=== PATIENT | male | born 1940 | race Caucasian/White ===

== ENCOUNTER → 2018-08-06 10:44 | Outpatient (CLI) | payer MEDICARE, SELFPAY ==
--- NOTE | 2018-08-06 10:45 | RAD_ITS ---
STUDY: X-RAY - ABDOMEN/PELVIS REASON FOR EXAM: Male, 78 years old. Right flank pain TECHNIQUE: Frontal view of the abdomen COMPARISON: 12/29/2015 FINDINGS: There is no bowel obstruction. There is air and stool to the level of the rectum. -There is a 5 mm calcification overlying the right renal shadow which may represent a renal stone. This is grossly unchanged when compared with the prior exam. There are surgical clips in the pelvis which are likely from prior prostatectomy. There are mild degenerative changes in the spine. RAD/Abdomen Single View IMPRESSION: No bowel obstruction. 5 mm calcification overlying the right renal shadow which may represent a renal stone. Electronically Signed: Denton Guo, at 17:08 EDT Tel , Service support ,
== END ==
PROVIDERS: Family Provider Family Medicine; PCP Family Medicine; Visit Provider Nurse Practitioner Adult Health
DX: N20.0 Calculus of kidney (principal)
CPT/HCPCS: 74018

== ENCOUNTER 2020-12-10 12:27 | Outpatient (RCR) | payer MEDICARE, SELFPAY ==
[2018-12-21 11:19] VITALS: BMI 30.4
== END 2020-12-10 23:59 ==
LOC: IMMUN 12:27
PROVIDERS: PCP Family Medicine; Visit Provider Family Medicine
DX: Z23 Encounter for immunization (principal)
CPT/HCPCS: 0011A; 0012A; 91301

== ENCOUNTER → 2021-09-13 06:44 | Outpatient (CLI) | payer MEDICARE, SELFPAY ==
--- NOTE | 2021-09-13 17:54 | STRESSREP ---
Stress Test Report Exercise myocardial perfusion stress test. 81-year-old man with a history of chest pain. Stress protocol: Resting EKG demonstrates normal sinus rhythm with a rate of 82 bpm and incomplete left bundle branch block noted. Resting blood pressure is 128/84 mmHg. The patient exercised according to the regular Yandel protocol for a total duration of 5 minutes. Patient completed 2 minutes into stage II of the Yandel protocol. The maximum heart rate attained was 114 bpm which was 82% of maximum predicted heart rate the maximum workload was 7 metabolic equivalents. At rest there were no ST or T wave changes noted to suggest ischemia nonspecific ST changes were noted though the patient experienced slight pressure in the lower part of the chest. The test was terminated due to dyspnea. Myocardial perfusion protocol. 11.7 mCi of technetium 99m sestamibi was injected at rest. Patient exercised according to regular Yandel protocol for 5 minutes and at peak exercise 33.3 mCi of technetium 99m sestamibi was injected stress images were obtained stress and rest images were reconstructed and compared in the short axis vertical long and horizontal long axis. Gated images were also obtained. Perfusion SPECT analysis: Review of the stress images demonstrate normal uptake of tracer noted in all areas of the myocardium. The resting images similarly demonstrate normal uptake of tracer noted in all areas of the myocardium. No areas of reversibility are noted to suggest ischemia and no previous infarct is noted. Gated SPECT analysis: The gated ejection fraction is 34%. 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 No evidence of ischemia noted at a moderate workload.
== END ==
PROVIDERS: PCP Internal Medicine; Referring Provider Internal Medicine; Visit Provider Internal Medicine
DX: I42.9 Cardiomyopathy, unspecified (principal); R07.89 Other chest pain
CPT/HCPCS: 78452; 93017; A9500; A4216

== ENCOUNTER 2021-10-04 09:00 | Outpatient (RCR) | payer MEDICARE, SELFPAY ==
--- NOTE | 2021-09-03 08:41 | HP.PTEVAL ---
Patient's Visit Information BERNY INFANTE is a 81 year old M referred to Physical Therapy by Dr. Joelle Stern MD with a diagnosis of Leg weakness, unsteady gait. Date of Evaluation: 09/03/21 Physical Therapist: Ryley Mccoy, DPT, OCS, CSCS - Visit Plan Frequency: 2-3x /Week Duration: 4-6 Weeks Plan: Neurocom balance test then. 2-3x/week for 4 weeks for. 1. HS, gastroc, quad stretching to HEP, LB ROM flexion to HEP. 2. shoulder elevation ROM to HEP. 3. Strength in gym of posture, core, LE including get up off floor as exercise and progress to I. 4. balance ex as appropriate based on balanbce test(vestibular) - Subjective Goes by skip. I need to gain a strength. Has LB problems from time to time. Legs feel weak as he has gotten older and skinnier. 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 LBP not a current problem. Takes celebrex daily which helps. Walking long distances acan make it hurt but gone with sitting. Sleep is fine. 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 Balance could be better. Notices it has been off at times for no apparent reason. standing with feet together is hard. Needs to be careful stadning out of chair at home. No falls,. No AD needed. Uses wading staff in water and boots with metal studs. No regular exercises. Used to walk dog a lot but that dog . Spends day sleeping, working in yard. Has service mow the lawn. 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 \Basic Lives with , lives on single story with basement, steps feel weak when carrying kits down steps. Needs to carry 40# of water at t noelle. Basic ADLS are good. bending to put shoes on can be an issue just hard to do. Putting waders on takes effort., Feels weak. - Objective Walks into PT confidently and normal and safe. Trasnfers bed and chair I without UE. Steps are reciprocal but show some weakness with eccentric lowering. max tight in HS, quads, hip flecxors and gastroc/soleus. LB AROM ex mod limited, flexion mod limited, rotation mod limited. UE AROM WFL but limited in elevation shoulders to 130. reflexes 2./3 patella and achilles. Sensationn LE WNL to gross light touch. Strength LE 4/5 ankles and knees and 4- hip abd and ext and flexion B. 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 - Balance/Special Test Scores Functional Gait Assessment Score: 28 % Disability: 6.6700 CATSIB Score (Max score 120 seconds): 60 Lower Extremity Functional Score: 54 - Goals Goal 1:: I approp gym ex for LE and postural strength, balance if needed, HS, quad and gastroc stretch and shoulder ROM Goal Time Frame: 4-6 Weeks Goal 2:: Get up off floor with ease and confidence Goal Time Frame: 4-6 Weeks Goal 3:: Pt feel 75% better in balance and confidence with strength Goal Time Frame: 4-6 Weeks Goal 4:: Neurocom balance test and give results. Goal Time Frame: 4-6 Weeks - Rehabilitation Potential Physical Therapy Diagnosis: Weakness threatening function Rehabilitation Potential: Fair - Anticipated Interventions Patient/Client Instruction: Educate patient on: Condition, Plan of Care For the Purpose of:: To increase ROM, To improve muscle performance and motor function, To increase tolerance to activity/condition/position, To improve gait and locomotor functions Therapeutic Exercise to Include: Strength training, Flexibilty training, Passive ROM, Active ROM For the Purpose of:: To increase ROM, To improve muscle performance and motor function, To increase tolerance to activity/condition/position, To improve ability of physical actions for home/community/work/leisure, To improve gait and locomotor functions Thank you for the opportunity to evaluate your patient. For Medicare and Medicare HMO plans, please review the plan of care and approve it. It will need to be FAXED BACK to us at [phone] for Medicare purposes. For Medicare only, by signing this I certify the plan of care. Please let me know if there are questions or concerns regarding this plan of care. Physician Signature: Date:
--- NOTE | 2021-10-04 09:51 | HP.PTDCSUM ---
It has been my pleasure to treat BERNY INFANTE referred by Dr. Joelle Stern MD, with the diagnosis of Leg weakness, unsteady gait for a total of 9 visit(s). Discharge Date: 10/04/21 Please see the following information for a summary of their discharge status. Subjective: Doing pretty good. I like the exercises. wants to keep doing it. Feels like he can do this on his own. Feels stronger standing up, got up off floor himself the other day. 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 it will wear me out. % Improvement: 33 Objective/Function: Doing well with balance. and I with exercises and goals progressing nicely. Feels like he can continue in the gym on his own and will do so. Goal 1:: I approp gym ex for LE and postural strength, balance if needed, HS, quad and gastroc stretch and shoulder ROM Goal Progress: Goal Met Goal 2:: Get up off floor with ease and confidence Goal Progress: Goal Met Goal 3:: Pt feel 75% better in balance and confidence with strength Goal Progress: 33% Goal 4:: Neurocom balance test and give results. Goal Progress: Goal Met Plan: d/c If there are questions or concerns regarding this patient's physical therapy, please feel free to call me at [phone]. Thank you for the referral of this patient. Sincerely, Ryley Mccoy, DPT, OCS, CSCS Balance/Gait/Functional tests - Balance/Special Test Scores Functional Gait Assessment Score: 29 % Disability: 3.3400 CATSIB Score (Max score 120 seconds): 60 Lower Extremity Functional Score: 55
== END 2021-10-04 19:00 | disposition home or self-care (01) ==
LOC: PT 09:00
PROVIDERS: PCP Internal Medicine; Referring Provider Internal Medicine; Visit Provider Internal Medicine
DX: R26.81 Unsteadiness on feet (principal); M51.36 Other intervertebral disc degeneration, lumbar region; R29.898 Other symptoms and signs involving the musculoskeletal system
CPT/HCPCS: 97110; 97162; 97164; 97750

== ENCOUNTER 2021-10-11 21:17 | Emergency (ER) | payer MEDICARE, SELFPAY ==
[2021-10-11 21:17] VITALS: BP 108/88; PULSE 92; RESP 20; TEMP 36.7; O2SAT 100; BMI 26.4
[2021-10-11 21:22] VITALS: RESP 17
--- NOTE | 2021-10-11 21:45 | ED.VIS.BACK ---
HPI History of Present Illness Chief Complaint: Back Informant: patient Onset/Context/Timing Onset: Today Chronic pain exacerbated by: Activity Timing: Continuous Quality: Aching Location: Lumbar Worsened by: improves with Ambulation Relieved by: Sitting Associated Symptoms Associated Symptoms: Radiation to Left Leg; Negative for Numbness, Tingling, Radiation to Right Leg, Fever, Abdominal Pain, Dysuria, Unable to Ambulate, Unable to Transfer, Urinary Retention, Urinary Incontinence, Constipation and Fecal Incontinence Narrative Narrative: Patient with left lower lumbar pain that became worse today. Patient states that he has had similar pains in the past but this is worse. Patient states he had recent x-rays done. Patient states he has been to physical therapy. Patient states he was doing some of his physical therapy exercises today. Patient states his pain became worse after that. Patient states his pain is constant. Patient states the pain radiates to his left thigh. Patient denies any bowel or bladder changes. Patient denies any saddle anesthesia. Patient states his pain is different than the pain he gets with his kidney stones. Patient states he contacted his primary care physician who referred to the emergency department for management of his pain. [facility] Medical History (Updated 10/11/21 @ 23:[address] Ryley Morales, DO) History of hay fever Prostate cancer Home Medications celecoxib 200 mg PO DAILY PRN 07/31/17 [History Last Taken Unknown] duloxetine 20 mg PO BID 07/31/17 [History Last Taken Unknown] folic acid 1 mg PO BID 10/11/21 [History Last Taken Unknown] oxycodone-acetaminophen 1 tab PO Q6H PRN PRN 3 Days #12 tablet 10/11/21 [Rx Last Taken Unknown] potassium citrate 10 meq PO BID 10/11/21 [History Last Taken Unknown] rosuvastatin 20 mg PO DAILY 10/11/21 [History Last Taken Unknown] vitamin B complex [B Complex] 1 cap PO BID 10/11/21 [History Last Taken Unknown] zolpidem [Ambien] 10 mg PO QHS 10/11/21 [History Last Taken Unknown] Allergy/AdvReac Type Severity Reaction Status Date / Time iodine Allergy Shortness Verified 10/11/21 21:25 of breath Surgical History (Updated 10/11/21 @ 21:[address] Ryley Morales, DO) History of prostate surgery History of total bilateral knee replacement Hx of appendectomy Social History Smoking Status: Never smoker alcohol intake: current details: social substance use type: does not use ROS ROS ED Constitutional Constitutional ED: Denies chills or fever(s) Eyes Eyes: Denies blurry vision or change in vision ENT ENT ED: Denies rhinorrhea or sore throat Cardiovascular Cardiovascular: Denies chest pain or palpitations Respiratory/Chest Respiratory/Chest: Denies cough or dyspnea Gastrointestinal Gastrointestinal: Denies nausea or vomiting Genitourinary Genitourinary ED: Denies dysuria or hematuria Musculoskeletal Musculoskeletal: Reports back pain; Denies neck pain Integumentary Denies abscess or rash Neurologic Neurologic: Denies headache(s) or weakness Allergic/Immunologic Allergic/Immunologic ED: Denies mouth swelling or urticaria EXAM Physical Exam Const Vital Signs: 10/11/21 21:17 10/11/21 21:22 Temperature 98.1 F Temperature Source Temporal Pulse Rate 92 Respiratory Rate 20 H 17 Blood Pressure 108/88 H Blood Pressure Mean 94 Pulse Ox 100 Oxygen Delivery Method Room Air Room Air Positive well nourished and well developed General Appearance ED: well developed HEENT Reports moist mucous membranes GI normal to inspection, nondistended, normoactive bowel sounds and soft to palpation Back/Spine Back/Spine Narrative: There is some mild tenderness over the left lumbar paraspinal muscles. There is no midline tenderness. There is no bony crepitance or step-off. Range of motion was limited in all motions of the lumbar spine secondary to pain. Strength is 5/5 bilaterally in the lower extremities. Deep tendon reflexes were 2/4 bilaterally in the lower extremities. Sensation was intact to light touch bilaterally in the lower extremities. Straight leg raises were negative bilaterally. General Back: Negative for CVA tenderness Neuro oriented x3 Sensorium / Orientation: alert Motor Exam: strength 5/5 throughout Deep Tendon Reflexes: Rt Patellar (L4): 2+, Lt Patellar (L4): 2+, Rt Ankle (S1): 2+ and Lt Ankle (S1): 2+ Deep Tendon Reflexes Back: Rt Patellar (L4): 2+, Lt Patellar (L4): 2+, Rt Ankle (S1): 2+ and Lt Ankle (S1): 2+ Psych mental status grossly normal MDM MDM MDM Narrative Medical decision making narrative: Since the patient has had x-rays done recently and he has had no recent trauma, I do not feel it is necessary to repeat them at this time. Patient was given injection of morphine here. Patient had minimal relief with this. Patient was given a repeat dose of morphine. Patient states he still has minimal improvement of his pain. Patient was given a dose of Dilaudid. Patient feels better after this. Patient states he feels he is able to get around at home. Patient was given a prescription for Percocet. Patient was instructed to follow-up with his primary care physician in 3 to 5 days. Patient was instructed on signs and symptoms which should prompt return to the emergency department. Patient understood and was agreeable with the plan. All questions were answered. Discharge Plan Triage Chief Complaint: Back ED Provider: Ryley Morales Dx/Rx/DC Orders Clinical Impression: Acute low back pain Instructions: ED Back Pain (Acute or Chronic) Prescriptions: New oxycodone-acetaminophen [oxycodone-acetaminophen] 1 TABLET tablet 1 tab PO Q6H PRN PRN (Reason: Pain) 3 Days Qty: 12 RF: 0 No Action celecoxib 200 MG capsule 200 mg PO DAILY PRN (Reason: Pain) RF: 0 duloxetine 20 MG capsule 20 mg PO BID RF: 0 potassium citrate 10 mEq (1,080 mg) Tablet Extended Release 10 meq PO BID RF: 0 zolpidem [Ambien] 10 mg Tablet 10 mg PO QHS RF: 0 rosuvastatin 20 mg Capsule, Sprinkle 20 mg PO DAILY RF: 0 folic acid 1 mg Tablet 1 mg PO BID RF: 0 vitamin B complex [B Complex] Capsule 1 cap PO BID RF: 0 Primary Care Provider: Joelle Stern Referrals: Joelle Stern MD [Primary Care Provider] - 3-5 Days Disposition Disposition: Home, Self Care
[2021-10-11] MEDS: Morphine 4 MG/ML Syringe IM ×2 (21:53→23:18)
[2021-10-11] MEDS: HYDROmorphone 0.5 MG/0.5 ML SYRINGE IM (23:46)
[2021-10-12 00:01] VITALS: BP 112/74; PULSE 74; RESP 17; O2SAT 97
== END 2021-10-12 00:05 | disposition home or self-care (01) ==
PROVIDERS: Emergency Provider Emergency Medicine; PCP Internal Medicine
DX: M54.50 Low back pain, unspecified (principal)
CPT/HCPCS: 96372; 99282

== ENCOUNTER 2021-12-13 09:35 | Outpatient (CLI) | payer MEDICARE, SELFPAY ==
--- NOTE | 2021-12-13 09:43 | ECHOD_ITS ---
Reason For Study: lower left ventricular ejection fraction Procedure This was a 2D Doppler, Color Flow transthoracic echocardiogram. Exam performed in department. Left Ventricle Normal LV size. Moderate concentric left ventricular hypertrophy. The estimated ejection fraction is 35 %. Stage 3 diastolic dysfunction. There is moderate to severe global hypokinesis of the left ventricle. Right Ventricle Normal RV size. Normal systolic function. Mitral Valve Bileaflet diffuse mitral valve thickening. Mild (1+) eccentric mitral valve insufficiency. Tricuspid Valve Normal tricuspid valve. Mild to moderate (1-2+) tricuspid valve insufficiency. Pulmonary artery systolic pressure is 34 mmHg. Aortic Valve Trisinus/trileaflet aortic valve. Mild focal aortic valve calcification. Trivial aortic valve insufficiency. Pericardium/Pleural Small pericardial effusion. MMode/2D Measurements & Calculations LVIDd: 5.1 cm IVSd: 1.2 cm Ao root diam: 3.7 cm LVIDs: 4.0 cm LVPWd: 1.3 cm RVDd: 3.6 cm FS: 22.8 % LAV(MOD-bp): 75.1 ml LA dimension(2D): 4.8 cm LA A4 area: 22.6 cm2 LAV(MOD-bp) Indexed: 36.3 ml/m2 LAV(MOD-sp2): 72.6 ml LAV(MOD-sp4): 72.2 ml RA A4 area: 16.2 cm2 Doppler Measurements & Calculations MV E max dariel: 96.2 cm/sec Ao V2 max: 82.9 cm/sec LV V1 max: 68.0 cm/sec MV A max dariel: 47.9 cm/sec Ao max P.8 mmHg LV V1 max P.8 mmHg MV E/A: 2.0 MR max dariel: 388.4 cm/sec PA V2 max: 87.6 cm/sec TR max dariel: 272.6 cm/sec MR max P.4 mmHg TR max P.7 mmHg ECHO/Echo Complete Interpretation Summary Normal LV size. Moderate concentric left ventricular hypertrophy. The estimated ejection fraction is 35 %. There is moderate to severe global hypokinesis of the left ventricle. Small pericardial effusion. Mild (1+) eccentric mitral valve insufficiency. Stage 3 diastolic dysfunction. Pulmonary artery systolic pressure is 34 mmHg. Ordering Physician: Joelle Stern Referring Physician: Moise Araiza M.D. Performed By: Shelley Powell, OWEN, RVT
== END 2021-12-13 23:59 | disposition short-term general hospital (02) ==
PROVIDERS: PCP Internal Medicine; Referring Provider Internal Medicine; Visit Provider Internal Medicine
DX: R07.89 Other chest pain (principal); R94.30 Abnormal result of cardiovascular function study, unspecified
CPT/HCPCS: 93306

== ENCOUNTER 2021-12-16 08:32 | Outpatient (CLI) | payer MEDICARE, SELFPAY ==
[2021-12-16 09:01] LABS: ALB/GLOB Ratio 0.9 RATIO (0.9-2.4); AST(SGOT) 33 U/L (15-37); Alanine Aminotransfer ALT/SGPT 38 U/L (16-61); Albumin, Serum 3.7 g/dL (3.2-5.0); Alkaline Phosphatase 94 U/L (45-117); Anion Gap 7 (5-15); BUN 30 mg/dL (7-18); BUN/Creat Ratio 17.6 RATIO (10-20); CPK Total, Creatine Kinase 122 U/L (39-308); Chloride 107 mmol/L (98-107); EST Glomerular Filtration Rate 41 mL/min (>60); Est Glom Filt Rate - Afr Amer 50 mL/min (>60); Globulin 4.1 g/dL (2.2-4.2); Glucose 135 mg/dL (74-106); Potassium 4.4 mmol/L (3.5-5.1); Protein, Total 7.8 g/dL (6.4-8.2); Sodium Level 142 mmol/L (136-145); Troponin-I HS 84 pg/mL (3.0-78.0)
[2021-12-16 09:05] LABS: BNP,B-Type NATRIURETIC PEPTIDE 503.5 pg/mL (0-100)
== END 2021-12-16 23:59 | disposition short-term general hospital (02) ==
LOC: LABSPEC 08:34
PROVIDERS: PCP Internal Medicine; Visit Provider Internal Medicine
DX: R07.9 Chest pain, unspecified (principal); E87.5 Hyperkalemia; R06.02 Shortness of breath
CPT/HCPCS: 80053; 82550; 83880; 84484

== ENCOUNTER 2021-12-16 10:39 | Observation (INO) | payer MEDICARE, SELFPAY ==
[2021-12-16] VITALS (7 sets, daily range): BP systolic 120–135; BP diastolic 74–97; PULSE 75–98; RESP 16–18; TEMP 36.6; O2SAT 94–98; BMI 27.8
--- NOTE | 2021-12-16 11:11 | CASEMGMT ---
According to the [facility] website, the following are in-network tertiary facilities: [facility], [place], [facility], [facility], [facility], and . [place] [facility]
[2021-12-16 11:12] LABS: Hematocrit 43.4 % (40-54); Mean Corp Hgb Conc 32.3 g/dL (32-36); Mean Corpuscular Hgb 30.6 pg (27.0-32.0); Mean Corpuscular Volume 94.8 fL (80-94); Mean Platelet Vol. 11.5 fl (6.2-12.0); Platelet Count 158 K/mm3 (150-450); RBC Distribution Width CV 13.3 % (11.6-14.6); RBC Distribution Width SD 46.3 fl (35.1-43.9); Red Blood Count 4.58 M/mm3 (4.6-6.2); White Blood Count 7.1 K/mm3 (4.4-11.0)
[2021-12-16] MEDS: 0.9% Saline Lock 10 ML Syringe IV ×2 (11:40→12:02)
[2021-12-16] MEDS: Furosemide 40 MG/4 ML Vial IV (12:01)
[2021-12-16] MEDS: Carvedilol 3.125 MG TABLET PO ×2 (12:01→22:00)
[2021-12-16] MEDS: Enoxaparin 40 MG/0.4 ML Syringe SC (12:01)
--- NOTE | 2021-12-16 17:31 | NURSING ---
said she already brought in the Living Will &Power of Director [employer]. I looked back and on 08/07/17 it was scanned in. said nothing has changed.
--- NOTE | 2021-12-16 19:57 | PCS.PANDOC ---
PANDEMIC DOCUMENTATION INITIATED: Date: 07/05/2021 Time: 190
[2021-12-16] MEDS: Atorvastatin Calcium 40 MG Tablet PO (22:00)
[2021-12-16] MEDS: Zolpidem Tartrate 5 MG Tablet 10 MG PO (22:00)
[2021-12-17] VITALS (13 sets, daily range): BP systolic 90–131; BP diastolic 70–91; PULSE 74–93; RESP 16–18; TEMP 35.6–36.7; O2SAT 90–96
--- NOTE | 2021-12-17 05:55 | EKG12_ITS ---
Test Reason : AM EKG Blood Pressure : / mmHG Vent. Rate : 082 BPM Atrial Rate : 082 BPM P-R Int : 144 ms QRS Dur : 152 ms QT Int : 478 ms P-R-T Axes : 084 005 150 degrees QTc Int : 558 ms Sinus rhythm with occasional Premature ventricular complexes Left bundle branch block Abnormal ECG When compared with ECG of 30-MAR-2013 16:58, Premature ventricular complexes are now Present Left bundle branch block is now Present Confirmed by WESLEY PINTO, HANS ([id number]), editor city TAN [place]AM[place] ([id number]) on 12/20/2021 10:03:43 A M Referred By: DR FULLER Confirmed By:SARABJIT OLSON MD
[2021-12-17 06:06] LABS: Anion Gap 3 (5-15); BUN 30 mg/dL (7-18); BUN/Creat Ratio 17.8 RATIO (10-20); Calcium,Total 8.9 mg/dL (8.5-10.1); Chloride 109 mmol/L (98-107); Creatinine, Serum 1.69 mg/dL (0.70-1.30); EST Glomerular Filtration Rate 42 mL/min (>60); Est Glom Filt Rate - Afr Amer 50 mL/min (>60); Glucose 92 mg/dL (74-106); Potassium 4.9 mmol/L (3.5-5.1); Sodium Level 141 mmol/L (136-145)
[2021-12-17] MEDS: Carvedilol 3.125 MG TABLET PO (06:19)
[2021-12-17] MEDS: 0.9% Normal Saline 1,000 ML 15 ML IV (06:20)
--- NOTE | 2021-12-17 07:26 | NURSING ---
Report called to seed laboratory technician at this time.
--- NOTE | 2021-12-17 08:18 | PCM.PN.CARD ---
Subjective Subjective Patient seen Underwent cardiac catheterization today. Objective Data Vital Signs: Vital Signs Temp Pulse Resp BP Pulse Ox 96.0 F L 82 16 121/89 H 96 12/17/21 06:18 12/17/21 07:00 12/17/21 06:18 12/17/21 06:18 12/17/21 06:18 Oxygen Delivery Method Room Air Weight: 193 lb 9.054 oz Body Mass Index (BMI) 27.8 Intake & Output: Intake and Output for Last 24 Hours 12/15/21 12/16/21 12/17/21 23:59 23:59 23:59 Intake Total 480 / 880 400 / 400 Output Total 1850 / 1850 Balance -1370 / -970 400 / 400 Lab / Micro Data Result Diagrams: 12/16/21 10:58 12/17/21 04:54 Labs: Laboratory Results - last 24 hr 12/16/21 10:58: WBC 7.1, RBC 4.58 L, Hgb 14.0, Hct 43.4, MCV 94.8 H, MCH 30.6, MCHC 32.3, RDW Std Deviation 46.3 H, RDW Coeff of [place] 13.3, Plt Count 158, MPV 11.5 12/17/21 04:54: Sodium 141, Potassium 4.9, Chloride 109 H, Carbon Dioxide 29.0, Anion Gap 3 L, BUN 30 H, Creatinine 1.69 H, Estim Creat Clear Calc 35.40, Est GFR (MDRD) Af Amer 50 L, Est GFR (MDRD) Non-Af 42 L, BUN/Creatinine Ratio 17.8, Glucose 92, Calcium 8.9 Cardiology Labs/Tests 12/16/21 10:58: WBC 7.1, RBC 4.58 L, Hgb 14.0, Hct 43.4, MCV 94.8 H, MCH 30.6, MCHC 32.3, Plt Count 158, MPV 11.5 12/17/21 04:54: Sodium 141, Potassium 4.9, Chloride 109 H, Carbon Dioxide 29.0, Anion Gap 3 L, BUN 30 H, Creatinine 1.69 H, Est GFR (MDRD) Af Amer 50 L, Est GFR (MDRD) Non-Af 42 L, BUN/Creatinine Ratio 17.8, Glucose 92, Calcium 8.9 Rhythm: EKG: ECHO: Stress Test: Cardiac Cath: PCI: CT Surgery: Holter monitor: EPS: PPM: CXR: Chest CT Scan: Physical Exam Const alert, oriented x3 and no apparent distress General Appearance: cooperative HEENT hearing grossly normal bilaterally Head and Scalp: atraumatic Eyes EOMs intact bilaterally Neck General: normal visual inspection Chest inspection of chest normal and palpation of chest normal Resp normal respiratory effort Auscultation: clear to auscultation bilaterally Cardio regular rate, regular rhythm, S1 normal heart sound and S2 normal heart sound Jugular Venous Distention: JVD GI normal to inspection, nondistended, normoactive bowel sounds Extremity normal capillary refill and no pedal edema Peripheral Pulses: Yes pulses 2+ throughout and femoral pulses present Skin no rashes or lesions noted Neuro oriented x3 and CN's II-XII intact bilaterally Psych Appearance: grossly normal and appropriate Assessment & Plan Assessment/Plan (1) HFrEF (heart failure with reduced ejection fraction): PLAN: Patient was noted to have left ventricular systolic dysfunction with heart failure with reduced ejection fraction. He was started on the standard medications. He underwent a cardiac catheterization today which demonstrated essentially normal coronary arteries. The plan will be to continue him on a beta-pilar Continue low-dose DANA inhibitor and eventually switch to Entresto Continue Lasix (2) Non-ST elevated myocardial infarction: PLAN: The above was likely secondary to demand ischemia in the cardiomyopathy. No obstructive coronary disease is noted. He does not need to be on any secondary risk factor modification. Patient can be discharged today for outpatient follow-up
--- NOTE | 2021-12-17 08:26 | PCM.DC ---
Discharge Instructions Diet Discharge Diet: No restrictions (You may continue your normal diet.) Activity Lifting Restrictions: 10 pounds and also avoid any pushing or pulling for 3 days after your test. Additional Activity Instructions:: You must have someone drive you home. Do not drive until instructed by your doctor. You must have someone stay with you all night after your test. Rest in bed or on the couch until the next morning. Limit the number of times you go up and down stairs the day of your test. Apply pressure to the puncture site if you sneeze or cough. Dressing / Incision Call your doctor if your incision/area has: Increased Pain/ Swelling, Increased Redness, Foul Smelling Discharge and Swelling at the incision site Call your doctor if you observe: Fever of 101 or Higher Additional Dressing/Incision Instructions:: Keep the dressing (bandage) on until the next morning. You may then shower, but do not take a tub bath for 5 days after your test. It is normal to have some tenderness and discomfort at the puncture site. Sometimes bruising also occurs. However, if pain, numbness, or coldness occurs below the puncture site (in your leg, toes, arms or fingers) call your doctor at once. You may have a small, marble sized knot at the puncture site. This is normal. Do not rub it. It will go away in 4-6 weeks. Bleeding can occur from the area where the puncture was done. Blood may spurt or drip from the site. If blood spurts, apply pressure right away to stop bleeding and call 911. Although rare, bleeding into the tissue (hematoma) can also occur. If this happens, a large, firm area goose egg under the skin will appear. If any of these occur, lie down as flat as you can and have someone apply firm pressure to the cath site with a gauze pad or a clean washcloth for 10-15 minutes. Call 911 or go to the Emergency Department. Follow Up Care Test Results: Test results from this visit will be discussed in further detail at your follow-up appointment, if applicable. Discharge Plan Admission Admit Date/Time: 12/16/21 11:25 Attending Provider: Damion Vu Primary Care Provider: Joelle Stern Discharge Orders/Prescriptions Prescriptions: New furosemide 40 mg Tablet 40 mg PO DAILY Qty: 90 RF: 2 carvedilol 3.125 mg Tablet 3.125 mg PO BID Qty: 90 RF: 2 lisinopril 5 mg Tablet 5 mg PO DAILY Qty: 90 RF: 2 Continued rosuvastatin 20 mg tablet 20 mg PO DAILY RF: 0 celecoxib 200 MG capsule 200 mg PO DAILY RF: 0 duloxetine 20 MG capsule 20 mg PO BID RF: 0 potassium citrate 10 mEq (1,080 mg) Tablet Extended Release 10 meq PO BID RF: 0 zolpidem [Ambien] 10 mg Tablet 10 mg PO QHS RF: 0 folic acid 1 mg Tablet 1 mg PO BID RF: 0 vitamin B complex Capsule 1 cap PO BID RF: 0 Referrals / Follow Up: Joelle Stern MD [Primary Care Provider] - Disposition Disposition (needs filled in before D/C Order can be placed): Home, Self Care
--- NOTE | 2021-12-17 08:34 | CL.D_ITS ---
Patient Name: BERNY INFANTE Study Date: 12/17/2021 Performing: Damion Vu MD Ht: 71 inches 180 cm : 1940 Wt: 194.3 lbs 88 kg Age: 81 Gender: male BSA: 2.08 PROCEDURE(S) PERFORMED DC02-(21059)C/COR CLINICAL PROFILE AND INDICATIONS Indications: Suspected CAD Heart Failure: NYHA Class: 3 Stress/Imaging Date: CAD Presentations: Symptom unlikely to be ischemic. CONCLUSIONS Non obstructive coronary arteries Cardiomyopathy: Dilated Cardiomyopathy: Congestive RECOMMENDATIONS Medical therapy DESCRIPTION OF PROCEDURE The patient arrived to the procedure lab. The risks and benefits of the procedure as well as a full d escription of our services here and current unavailability of surgical backup were fully explained to the patient and/or their significant other prior to the catheterization. The Timeout was completed, verifying the correct patient and procedure. The patient's procedural site was prepped and draped in the usual fashion. Local anesthetic was given subcutaneously to right radial region with Lidocaine 2% . Using a modified Seldinger technique, arterial access was obtained via the right radial artery, a 6 Fr sheath was inserted. Left Coronary Artery selective angiography was performed in multiple views u sing a 5 Fr. 4.0 Duffield catheter. Right Coronary Artery selective angiography was then performed in mu ltiple views using a 5 Fr. 4.0 Duffield catheter. LV to AO pullback pressures were then recorded.The art erial sheath was pulled and a TR Band was applied for hemostasis CORONARY ANGIOGRAPHY DOMINANCE: Right Dominant LEFT HEART ASSESSMENT Left Ventricular Ejection Fraction: by Echo 35 % Global Hypokinesis - Moderate Depressed Left Ventricular systolic function LEFT MAIN: Angiographically normal LEFT ANTERIOR DESCENDING ARTERY: No significant disease noted CIRCUMFLEX ARTERY: No significant disease noted RIGHT CORONARY ARTERY: No significant disease noted COMPLICATIONS No Complications PROCEDURE MEDICATIONS Fentanyl 25 mcg IV Versed .5 mg IV Versed 1 mg IV Oxygen: 2 L/min via nasal cannula Benadryl 25 mg IV 12/17/2021 07:37:06 Baby Aspirin (81mg) 1 Tabs PO @ 12/17/2021 07:40:24 Heparin given IA 12/17/2021 07:58:47 Solu-cortef 100 mg IV 12/17/2021 07:37:41 SUMMARY OF HEMODYNAMIC DATA Time AIR REST ECG 07:34:48 Art 130/82 (91) 07:55:52 AO 108/76 (92) SA 08:04:09 LV 106/14, 26 08:07:35 LV 109/17, 28 08:07:42 LVp 109/17, 26 08:07:48 AOp 117/80 (94) 08:07:53 Signed By Damion Vu MD On 12/17/2021 08:33:45 Damion Vu MD
[2021-12-17] MEDS: Lisinopril 5 MG Tablet PO (08:48)
[2021-12-17] MEDS: Furosemide 40 MG Tablet PO (08:49)
--- NOTE | 2021-12-17 10:50 | CASEMGMT ---
DARRIN CASH assessment: Face to Face with patient for initial transition planning/care coordination assessment. DARRIN CASH introduced self and role at [facility], pt voices understanding and consents to assessment. Pt is lying in bed in no distress on room air. Pt is A/Ox4 and answers all questions appropriately. Care providers, pharmacy, and demographics verified. Presentation: Pt is direct admit from Dr. Vu's office for elevated troponins Admitting dx: NSTEMI, CHF PCP: Leena Specialists: Mirella, cardiology; Mila, psychiatrist Preferred Pharmacy: [facility] Insurance: AeR Prescription Benefit: AeR Living Will/HPOA: Pt has LW/HPOA and is aware that they are on file at [facility]. Pt's , Abril Montero, is HPOA. LNOK: Abril Montero, /HPOA Living Arrangements: Pt lives with in 1 story home with basement and states no concerns at home. Pt is independent with ADL's. Transportation: Pt drives self and states no transportation concerns. DME/HHC: Pt has a cpap and states no need for any further DME. Pt states no hx of HHC or SNF. Pt states no concerns with going home at time of discharge. Pt is retired. Pt states does not smoke cigarettes but does drink ETOH daily, about 1 drink/day. Pt declines need for any resources. Pt voices no further concerns/needs. CM to follow for any further discharge planning/needs. Advised pt to ask for CM if any further questions/concerns/needs arise, voices understanding. Pt Goal: Home Plan: [place] DARRIN CASH
== END 2021-12-17 12:07 | disposition home or self-care (01) | DRG 280 ==
PROVIDERS: Admitting Provider Internal Medicine Cardiovascular Disease; PCP Internal Medicine; Visit Provider Internal Medicine Cardiovascular Disease
DX: I42.8 Other cardiomyopathies (principal); I50.23 Acute on chronic systolic (congestive) heart failure; I21.4 Non-ST elevation (NSTEMI) myocardial infarction; G47.33 Obstructive sleep apnea (adult) (pediatric); I25.10 Atherosclerotic heart disease of native coronary artery without angina pectoris; Z79.899 Other long term (current) drug therapy; F32.A Depression, unspecified; Z96.653 Presence of artificial knee joint, bilateral; R06.02 Shortness of breath; R53.83 Other fatigue; I44.7 Left bundle-branch block, unspecified
CPT/HCPCS: 36415; 80048; 80053; 82550; 83880; 84484; 85027; 93005; 93306; 93454; 96372; 96374; 96376; 97802; 99152; 99153; 99218; J7030; Q9967; A4216; C1769; C1894; G0378; J1940

== ENCOUNTER 2022-01-25 22:59 | Outpatient (CLI) | payer MEDICARE, SELFPAY | END 2022-01-25 23:59 | disposition home or self-care (01) | PROVIDERS: PCP Internal Medicine; Visit Provider Internal Medicine | DX: G47.33 Obstructive sleep apnea (adult) (pediatric) (principal) | CPT/HCPCS: 95811 ==

== ENCOUNTER 2022-01-28 10:12 | Outpatient (CLI) | payer MEDICARE, SELFPAY ==
[2022-01-28 11:13] LABS: Anion Gap 2 (5-15); BUN 34 mg/dL (7-18); BUN/Creat Ratio 21.4 RATIO (10-20); Calcium,Total 8.9 mg/dL (8.5-10.1); Chloride 108 mmol/L (98-107); Creatinine, Serum 1.59 mg/dL (0.70-1.30); EST Glomerular Filtration Rate 45 mL/min (>60); Est Glom Filt Rate - Afr Amer 54 mL/min (>60); Glucose 85 mg/dL (74-106); Potassium 4.7 mmol/L (3.5-5.1); Sodium Level 139 mmol/L (136-145)
== END 2022-01-28 23:59 | disposition home or self-care (01) ==
LOC: LAB 10:14
PROVIDERS: PCP Internal Medicine; Visit Provider Nurse Practitioner Gerontology
DX: I50.20 Unspecified systolic (congestive) heart failure (principal)
CPT/HCPCS: 36415; 80048

== ENCOUNTER 2022-02-15 11:00 | Outpatient (CLI) | payer MEDICARE, SELFPAY | END 2022-02-15 23:59 | disposition home or self-care (01) | LOC: SL 13:07 | PROVIDERS: PCP Internal Medicine; Referring Provider Nurse Practitioner Acute Care; Visit Provider Nurse Practitioner Acute Care | DX: G47.33 Obstructive sleep apnea (adult) (pediatric) (principal) | CPT/HCPCS: 98960; G0463 ==

== ENCOUNTER 2022-02-18 08:30 | Outpatient (RCR) | payer MEDICARE, SELFPAY ==
--- NOTE | 2022-01-28 09:56 | HP.PTEVAL_ITS ---
Patient's Visit Information BERNY INFANTE is a 81 year old M referred to Physical Therapy by Dr. Joelle Stern MD with a diagnosis of DDD, back pain. Date of Evaluation: 01/28/22 Physical Therapist: Ryley Mccoy, DPT, OCS, CSCS - Visit Plan Frequency: 3x /Week Duration: 4-6 Weeks Plan: 3x/week for 4-6 weeks for. 1. NS based PPT core strength mat to gym. 2. rollout and stretch quad and HS and teach for HEP. 3. core strength. 4. when back better, return to gym based general strength program, montior tolerance with pain. - Subjective Had PT for LB and got I in workout laate last year. L LB started hurting shortly after and doc sent to ER. Gave shot of morphine and it did not help. Could not sleep at home. But when he finally got to sleep after 6 hours it went away. Had intermittent pain for the remainder of the year and was not feeling energetic. Had bettery of blood tests, EKG, stress test etc and has CHF according to patient and put on a bunch of vitamins. Then was told he had a AK at some point. Back pain persists, takes a pill a day for antiinflammatory which helps a little bit. Chronic back pain usually goes awy but this one is not. Walks dog and gets 100 yards without pain then incline brings on L LB. Sitting pain goes away. Only present standing or walking. No leg symptoms. Sleeping is OK. Activities at home outside of longer walks are close to normal. Cleaning fish tank with buckets water can hurt. Stopped mowing lawn. Can still fly fish if doesn't have to walk more than 100 yards to spot. Exercises have not continued. - Pain L LB Pain Intensity (Out of 10): 0 Pain Intensity Range: 0, 7 - Objective Walks slightly hunched over and slow but I. Trasnfers slow but I. Steps re ciprocal with one rail. Upper legs and LB very stiff. HS and quads max tight 90/90 test at -45. L/s AROM, ext max limited, SB mod deficit, flexion mod limited. Painful extension. - slump and - SLR. reflexes 2/3 patella and achilles. sensation LE WNL to gross light touch. Strength in LE is symmetrical and no myotomal weaknesses. pelvic motion movement is minimal and stiff, default is anteriorly tilted. - Balance/Special Test Scores Functional Gait Assessment Score: 27 % Disability: 10.0000 Oswestry Low Back Score: 10 - Goals Goal 1:: Walk one mile without pain Goal Time Frame: 4-6 Weeks Goal 2:: I approp gym based ex program to limit future problems. Goal Time Frame: 4-6 Weeks Goal 3:: oswestry 5 or less. Goal Time Frame: 4-6 Weeks - Rehabilitation Potential Physical Therapy Diagnosis: Pain in back limiting walking distance Rehabilitation Potential: Fair - Anticipated Interventions Patient/Client Instruction: Educate patient on: Condition, Plan of Care For the Purpose of:: To decrease pain, To increase ROM, To improve muscle performance and motor function, To increase tolerance to activity/condition/position, To improve ability of physical actions for home/community/work/leisure Therapeutic Exercise to Include: Strength training, Postural training, Flexibilty training, Passive ROM, Active ROM, Dynamic Lumbar Stabilization For the Purpose of:: To decrease pain, To increase ROM, To improve muscle performance and motor function, To increase tolerance to activity/condition/position, To improve ability of physical actions for home/community/work/leisure Manual Therapy Techniques to Include: Passive ROM, Soft tissue mobilization For the Purpose of:: To decrease pain, To increase ROM Thermo therapy (hot pack): Yes For the Purpose of:: To improve nutrient delivery to tissue Thank you for the opportunity to evaluate your patient. For Medicare and Medicare HMO plans, please review the plan of care and approve it. It will need to be FAXED BACK to us at [phone] for Medicare purposes. For Medicare only, by signing this I certify the plan of care. Please let me know if there are questions or concerns regarding this plan of care. Physician Signature: D ate:
--- NOTE | 2022-02-18 09:20 | HP.PTDCSUM ---
It has been my pleasure to treat BERNY INFANTE referred by Dr. Joelle Stern MD, with the diagnosis of DDD, back pain for a total of 10 visit(s). Discharge Date: 02/18/22 Please see the following information for a summary of their discharge status. Subjective: I am able to do yard work. Enjoying fly fish. Doing a little better than 4 weeks ago. Feels like the machines are the answer to his weakness and fatigue. Not in a lot of pain, gets LBP intermittently and it is improving. Can walk further before it starts to hurt. Much better after resting for 30 seconds. Will do ex on his own 3x/week as he is member and lives close by. To doctor next month. L LB Pain Intensity (Out of 10): 0 % Improvement: 50 Objective/Function: Good ROM LB without pain today. Pt moving and walking well and without pain. Happy with progress and feels he can continue on his own in gym. Goal 1:: Walk one mile without pain Goal Progress: Goal Met, tires easily. Goal 2:: I approp gym based ex program to limit future problems. Goal Progress: Goal Met Goal 3:: oswestry 5 or less. Goal Progress: Not Progressing Plan: d/c to gym program Discharge Comments: Pt to continue on his own as member at with instructed gym ex and HEP for stretches. If there are questions or concerns regarding this patient's physical therapy, please feel free to call me at [phone]. Thank you for the referral of this patient. Sincerely, Ryley Mccoy, DPT, OCS, CSCS Balance/Gait/Functional tests - Balance/Special Test Scores Functional Gait Assessment Score: 27 % Disability: 10.0000 Oswestry Low Back Score: 16
== END 2022-02-18 09:51 | disposition home or self-care (01) ==
LOC: PT 08:30
PROVIDERS: PCP Internal Medicine; Referring Provider Internal Medicine; Visit Provider Internal Medicine
DX: M54.9 Dorsalgia, unspecified
CPT/HCPCS: 97110; 97140; 97161; 97164; 97530

== ENCOUNTER → 2022-04-12 | Outpatient (CLI) | payer MEDICARE, SELFPAY ==
--- NOTE | 2022-04-12 09:53 | ECHOD_ITS ---
Reason For Study: CMP Procedure This was a 2D Doppler, Color Flow transthoracic echocardiogram. Exam performed in department. Left Ventricle Normal LV size. Moderate concentric left ventricular hypertrophy. The estimated ejection fraction is 35 %. There is moderate global hypokinesis of the left ventricle. Right Ventricle Normal RV size. Normal systolic function. Atria Normal left atrium. Normal right atrium. Mitral Valve Normal mitral valve. Mild (1+) eccentric mitral valve insufficiency. Tricuspid Valve Normal tricuspid valve. Aortic Valve Trisinus/trileaflet aortic valve. Trivial aortic valve insufficiency. Pericardium/Pleural Small pericardial effusion. MMode/2D Measurements & Calculations LVIDd: 4.5 cm IVSd: 1.6 cm LA dimension: 4.1 cm LVIDs: 3.5 cm LVPWd: 1.9 cm RVDd: 3.6 cm FS: 22.4 % LAV(MOD-bp): 59.2 ml SV(MOD-sp4): 49.5 ml LVAd ap4: 36.6 cm2 LAV(MOD-bp) Indexed: 29.4 ml/m2 LVLd ap4: 8.6 cm LAV(MOD-sp2): 67.1 ml EDV(MOD-sp4): 124.8 ml LAV(MOD-sp4): 53.1 ml EDV(sp4-el): 132.2 ml LVAs ap4: 27.5 cm2 LVLs ap4: 8.0 cm ESV(MOD-sp4): 75.3 ml ESV(sp4-el): 80.4 ml EF(MOD-sp4): 39.7 % EF(sp4-el): 39.2 % SV(sp4-el): 51.8 ml LA A4 area: 20.1 cm2 RA A4 area: 19.6 cm2 Time Measurements MV dec time: 0.20 sec Doppler Measurements & Calculations MV E max sameer: 63.4 cm/sec Lat Peak E' Sameer: 5.9 cm/sec Med Peak E' Sameer: 2.1 cm/sec MV A max sameer: 67.6 cm/sec E/E' lat: 10.8 E/E' med: 29.8 MV E/A: 0.94 MV V2 max: 71.8 cm/sec MV P1/2t max sameer: 63.7 cm/sec Ao V2 max: 102.2 cm/sec MV max P.1 mmHg MV P1/2t: 170.9 msec Ao max P.2 mmHg MV V2 mean: 42.3 cm/sec MV dec slope: 109.3 cm/sec2 MV mean P.82 mmHg MV V2 VTI: 35.7 cm MVA(P1/2t): 1.3 cm2 AI max sameer: 330.0 cm/sec LV V1 max: 86.8 cm/sec MR max sameer: 429.7 cm/sec AI max P.6 mmHg LV V1 max P.0 mmHg MR max P.8 mmHg AI dec slope: 108.6 cm/sec2 MR mean sameer: 298.4 cm/sec AI P1/2t: 890.3 msec MR mean P.2 mmHg MR VTI: 177.2 cm PA V2 max: 76.4 cm/sec ECHO/Echo Complete Interpretation Summary Normal LV size. The estimated ejection fraction is 35 %. Moderate concentric left ventricular hypertrophy. There is moderate global hypokinesis of the left ventricle. Mild (1+) eccentric mitral valve insufficiency. Trivial aortic valve insufficiency. Small pericardial effusion. Compared to previous study, the left ventricular systolic function is the same. . Ordering Physician: Masha Glaser Referring Physician: Joelle Stern Performed By: Raghva Kraus RCS
== END | disposition home or self-care (01) ==
LOC: CVS 09:51
PROVIDERS: PCP Internal Medicine; Visit Provider Nurse Practitioner Gerontology
DX: I42.8 Other cardiomyopathies (principal)
CPT/HCPCS: 93306

== ENCOUNTER → 2022-09-23 | Outpatient (CLI) | payer MEDICARE, SELFPAY ==
--- NOTE | 2022-09-23 12:43 | MRI_ITS ---
STUDY: MRI LUMBAR SPINE WITHOUT CONTRAST REASON FOR EXAM: Male, 82 years old. Low back pain with left-sided sciatica TECHNIQUE: Standardized fat and water weighted pulse sequences were obtained in the sagittal and axial planes. COMPARISON: CT abdomen and pelvis without contrast 06/13/2013. FINDINGS: T11-T12 and T12-L1: (Sagittal only). Normal endplates. Normal disc height, hydration and morphology. No ventral extradural defects. Normal central canal and bilateral intervertebral neural foramina. Normal lumbar lordosis. There is no substantial scoliosis. Normal conus medullaris that terminates at the lower T12 vertebral body level. L1-2: Normal endplates. Normal disc height, hydration and morphology. Normal bilateral facet joints. Normal central canal and bilateral lateral recesses. Normal bilateral intervertebral neural foramina. L2-3: Normal endplates. Mild disc space height narrowing. Mild ventral extradural defect due to posterior bulging annulus. Mild bilateral degenerative facet arthropathy. Mild dorsal epidural lipomatosis. Normal central canal and bilateral lateral recesses. Normal bilateral intervertebral neural foramina. L3-4: Normal endplates. Minimal disc space height narrowing. No ventral extradural defect. Mild bilateral degenerative facet arthropathy. Mild central canal stenosis with an AP canal diameter of 10 mm. Normal bilateral lateral recesses. Normal bilateral intervertebral neural foramina. L4-5: Normal place. Minimal disc space narrowing. Mild ventral extradural defect due to small posterior bulging annulus. Moderate bilateral degenerative facet arthropathy. Mild central canal stenosis with AP canal diameter of 10 mm. Pronounced stenosis of the left intervertebral neural foramen with encroachment/entrapment of the left L4 nerve. Moderate stenosis of the right intervertebral neural foramen with partial impingement/entrapment of the right L4 nerve. L5-S1: Modic type II degenerative vertebral marrow fatty changes under degenerative endplates. Pronounced disc space narrowing. Mild to moderate bilateral degenerative facet arthropathy. Normal central canal and bilateral lateral recesses. Bilateral L5 pars defects. No spondylolisthesis. Moderate stenosis of the left intervertebral neural foramen with minimal encroachment/entrapment of the left L5 nerve. Mild stenosis of the right intervertebral neural foramen. Normal visualized sacral ala. Normal visualized paraspinous soft tissue structures. MRI/Spine Lumbar (Routine) IMPRESSION: 1. 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 2. Mild central canal stenosis at L4-L5 disc space level with an additional diameter of 10 mm a pronounced stenosis of the left L4-L5 intervertebral neural foramen with encroachment/entrapment of the left L4 nerve and moderate stenosis of the right intervertebral neural foramen with partial impingement/entrapment of the right L4 nerve. 3. Mild central canal stenosis at L3-L4 disc space level with an AP canal diameter of 10 mm. 4. No MRI evidence of lumbar extruded disc fragment. Electronically Signed: Alvino Rodgers MD at 14:01 EDT ,
== END | disposition home or self-care (01) ==
LOC: MRI 12:30
PROVIDERS: PCP Internal Medicine; Referring Provider Internal Medicine; Visit Provider Internal Medicine
DX: M54.42 Lumbago with sciatica, left side (principal); M43.16 Spondylolisthesis, lumbar region; M48.061 Spinal stenosis, lumbar region without neurogenic claudication
CPT/HCPCS: 72148

== ENCOUNTER → 2022-10-21 | Outpatient (CLI) | payer MEDICARE, SELFPAY ==
--- NOTE | 2022-10-21 13:59 | ECHOL_ITS ---
Reason For Study: NICM Procedure This was a 2D Doppler, Color Flow transthoracic echocardiogram. Myocardial strain analysis was performed in this exam to aid in the assessment of cardiac function. Exam performed in department. Left Ventricle Normal LV size. Moderate concentric left ventricular hypertrophy. The estimated ejection fraction is 45 %. There is mild to moderate global hypokinesis of the left ventricle. Right Ventricle Normal RV size. Normal systolic function. Atria Normal left atrium. Normal right atrium. Mitral Valve Bileaflet diffuse mitral valve thickening. Trivial mitral valve insufficiency. Tricuspid Valve Normal tricuspid valve. Aortic Valve Trisinus/trileaflet aortic valve. Pulmonic Valve Normal pulmonic valve. Great Vessels Normal aortic root. The pulmonary artery is normal size. Normal inferior vena cava. Pericardium/Pleural No pericardial effusion. MMode/2D Measurements & Calculations LVIDd: 5.0 cm IVSd: 1.4 cm Ao root diam: 3.4 cm LVIDs: 3.8 cm LVPWd: 1.5 cm RVDd: 2.7 cm FS: 23.3 % LAV(MOD-bp): 61.9 ml LA A4 area: 20.8 cm2 LA dimension(2D): 3.9 cm LAV(MOD-bp) Indexed: 30.3 ml/m2 LAV(MOD-sp2): 61.7 ml LAV(MOD-sp4): 61.8 ml RA A4 area: 16.0 cm2 ECHO/Echo, Limited Study Interpretation Summary Normal LV size. Moderate concentric left ventricular hypertrophy. The estimated ejection fraction is 45 %. There is mild to moderate global hypokinesis of the left ventricle. Bileaflet diffuse mitral valve thickening. The global longitudinal strain is severely abnormal. The global longitudinal st rain = -10.8% (abnormal). Ordering Physician: Gal Bryant Referring Physician: Joelle Stern Performed By: Shelley Powell, RDCS, RVT
== END | disposition home or self-care (01) ==
PROVIDERS: PCP Internal Medicine; Referring Provider Nurse Practitioner Family; Visit Provider Nurse Practitioner Family
DX: I42.8 Other cardiomyopathies (principal); I44.7 Left bundle-branch block, unspecified
CPT/HCPCS: 93308

== ENCOUNTER 2022-12-14 21:44 | Inpatient (IN) | payer MEDICARE, SELFPAY ==
[2022-12-14 21:45] VITALS: BP 105/73; PULSE 37; RESP 15; TEMP 36.4; O2SAT 100; BMI 25.1
[2022-12-14 22:10] LABS: Absolute Lymphocyte Count 1.51 X10^3/uL (0.83-4.51); Absolute Neutrophil Count 10.3 X10^3/uL (2.0-7.7); Basophil# 0.02 X10^3/uL; Basophil% 0.2 % (0-1); Hematocrit 43.9 % (40-54); Hemoglobin 14.8 g/dL (13.0-16.5); Lymphocyte # 1.51 X10^3/ul (0.83-4.51); Lymphocyte % 12.4 % (19-41); Mean Corp Hgb Conc 33.7 g/dL (32-36); Mean Corpuscular Hgb 31.6 pg (27.0-32.0); Mean Corpuscular Volume 93.8 fL (80-94); Monocyte# 0.25 X10^3/uL; Monocyte% 2.1 % (0-10); NRBC Flagged by Analyzer 0 % (0-5); Neutrophil # 10.33 X10^3/uL (2.7-7.7); Neutrophil % 84.9 % (47-70); Platelet Count 253 K/mm3 (150-450); Red Blood Count 4.68 M/mm3 (4.6-6.2); White Blood Count 12.2 K/mm3 (4.4-11.0)
--- NOTE | 2022-12-14 22:11 | EDS_ITS ---
HPI History of Present Illness Chief Complaint: Palpitations Informant: patient Narrative Narrative: Patient has had low heart rate episodically for the past 2 weeks, most of the day today, as told by the bradycardia alarm on his apple watch that he wears daily. He has a history of a nonischemic cardiomyopathy, his last EF was measured at 40% according to the patient. He states he had a procedure today where he had some injections in his back and he had some anesthesia, with an IV, outpatient procedure. They were commenting on how he was bradycardic and the patient felt okay at the time, however this evening he was near syncopal several times. He has had no chest discomfort, dyspnea, focal neurologic symptoms, or syncope. No recent illness. 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 He is on carvedilol 3.125 twice daily, that is not a new medication and has not been changed lately, he has not taken too much of it on accident, he takes it as prescribed. He has not yet had a tonight. He presents around 2200 in the evening. [facility] Medical History (Updated 12/14/22 @ 23:[address] Fabiola Nath MD) CKD (chronic kidney disease), stage III Depression History of hay fever HTN (hypertension) Hyperlipidemia Left bundle branch block (LBBB) Left ventricular diastolic dysfunction LVH (left ventricular hypertrophy) Non-ischemic cardiomyopathy Obstructive sleep apnea Prostate cancer Home Medications folic acid 1 mg tablet 1 mg PO BID 10/11/21 [History Last Taken 12/15/21] potassium citrate 10 mEq (1,080 mg) tablet,extended release 10 meq PO DAILY 10/11/21 [History Last Taken 12/15/21] vitamin B complex 1 cap PO BID 10/11/21 [History Last Taken 12/15/21] rosuvastatin 20 mg tablet 20 mg PO DAILY 12/16/21 [History Last Taken 12/15/21] zolpidem 12.5 mg tablet,extended release,multiphase 12.5 mg PO QHS 04/04/22 [History Last Taken Unknown] furosemide 40 mg tablet 40 mg PO QODAY 07/27/22 [History Last Taken Unknown] celecoxib 200 mg capsule 200 mg PO DAILY PRN Pain 08/10/22 [History Last Taken Unknown] lisinopril 5 mg tablet 5 mg PO DAILY #90 tabs 11/01/22 [Rx Last Taken Unknown] carvedilol 3.125 mg tablet 3.125 mg PO DAILY 12/14/22 [History Last Taken Unknown] duloxetine 20 mg capsule,delayed release 20 mg PO DAILY 12/14/22 [History Last Taken Unknown] Allergy/AdvReac Type Severity Reaction Status Date / Time iodine Allergy Shortness Verified 12/14/22 21:47 of breath Surgical History History of left heart catheterization (12/17/21) History of prostate surgery History of total bilateral knee replacement Hx of appendectomy Social History Smoking Status: Never smoker alcohol intake: current alcohol intake frequency: 0-2 drinks per day Alcohol type: beer, wine and hard liquor details: 1 drink per night substance use type: does not use caffeine: Yes Type: coffee Number of servings: 2 ROS ROS ED Constitutional Constitutional ED: Denies chills or fever(s) Eyes Eyes: Denies change in vision or diplopia ENT ENT ED: Denies rhinorrhea or sore throat Cardiovascular Cardiovascular: Denies chest pain or palpitations Respiratory/Chest Respiratory/Chest: Denies cough or dyspnea Gastrointestinal Gastrointestinal: Denies abdominal pain, diarrhea, nausea or vomiting Genitourinary Genitourinary ED: Denies dysuria or hematuria Musculoskeletal Musculoskeletal: Denies back pain or neck pain Integumentary Denies abscess or rash Neurologic Neurologic: Denies headache(s), paresthesias or weakness Psychiatric Psychiatric: Denies anxiety or suicidal thoughts EXAM Physical Exam Const Vital Signs: 12/14/22 21:45 12/14/22 22:14 12/14/22 22:36 Temperature 97.5 F L Temperature Source Temporal Pulse Rate 37 L 41 L 35 L Respiratory Rate 15 15 21 H Respiratory Effort Respiratory Pattern Blood Pressure 105/73 100/49 L 99/47 L Blood Pressure Mean 83 66 64 Pulse Ox 100 98 98 Oxygen Delivery Method Room Air Room Air Room Air 12/14/22 22:38 12/14/22 23:03 Temperature Temperature Source Pulse Rate 35 L Respiratory Rate 16 Respiratory Effort Non-Labored Respiratory Pattern Normal Blood Pressure 99/55 L Blood Pressure Mean 69 Pulse Ox 98 Oxygen Delivery Method Room Air Positive well nourished and well developed General Appearance ED: well developed and NAD HEENT Reports moist mucous membranes normocephalic and atraumatic Eyes PERRL and EOMs intact bilaterally Neck full ROM and supple Resp normal respiratory effort and clear to auscultation bilaterally Cardio regular rate and regular rhythm Cardio Narrative: Faint heart sounds Rate: bradycardia GI non-tender and non-distended Auscultation: normoactive bowel sounds Palpation: soft Back/Spine no CVA tenderness General Back: other FROM Extremity normal to inspection General Extremety ED: Negative for edema, pulses abnormal or tenderness General Extremity: Negative for edema or pulses abnormal Neuro oriented x3, CN's II-XII intact bilaterally and no sensory deficits noted Sensorium / Orientation: awake and alert Motor Exam: strength 5/5 throughout Skin no rashes or lesions noted and no wounds MDM MDM MDM Narrative Medical decision making narrative: I reviewed prior outpatient echocardiogram from the cardiology clinic. It shows global LV hypokinesis and an EF of 45%. Also reviewed the patient's prior EKG from outside area of this hospital, PCU that was done about 1 year ago. It does not show a supraventricular dysrhythmia, the QRS morphology is similar to that of today. Patient's work-up is remarkable for acute kidney injury compared with his chronic renal insufficiency, his potassium was just very mildly elevated at 5.4. This is not high enough to be causing all of this. I discussed with Cardiology Dr. Rodriguez, he agrees with admitting the patient for further evaluation and holding his Lasix and carvedilol for now. I had staff place pacemaker with pads at the bedside, so far throughout his ED stay he has not required any pacing and has not been symptomatic along with rate in the 30s since he is lying down or resting. I will give him a single dose of Kayexalate just to prevent any further escalation of his potassium levels, but I do not think he needs the whole hyperkalemia protocol. Lab Data Attestation: I reviewed the patient's lab results. Labs: Laboratory Results - last 24 hr 12/14/22 12/14/22 12/14/22 22:01 22:01 22:01 WBC 12.2 H RBC 4.68 Hgb 14.8 Hct 43.9 MCV 93.8 MCH 31.6 MCHC 33.7 RDW Std Deviation 42.0 RDW Coeff of [place] 12.0 Plt Count 253 MPV 11.0 Immature Gran % (Auto) 0.400 Neut % (Auto) 84.9 H Lymph % (Auto) 12.4 L [place] % (Auto) 2.1 Eos % (Auto) 0.0 Baso % (Auto) 0.2 Absolute Neuts (auto) 10.3 H Absolute Lymphs (auto) 1.51 Nucleated RBC % 0 Sodium 137 Potassium 5.4 H Chloride 106 Carbon Dioxide 23.0 Anion Gap 8 BUN 62 H Creatinine 2.54 H Estim Creat Clear Calc 23.88 Est GFR (MDRD) Af Amer 31 L Est GFR (MDRD) Non-Af 26 L BUN/Creatinine Ratio 24.4 H Glucose 192 H Calcium 8.9 Troponin I High Sens 48 Rhythm Strip Rhythm Strip: A flutter with approximately 6: 1 conduction Rate: 37 Ectopy: PVC(s) EKG Initial EKG: Attestation: I personally reviewed and interpreted this EKG as follows: Comments: Atrial flutter with variable conduction, but averaging 5: 1-6: 1. No acute injury pattern. Low voltage. Occasional PVC. Prior EKG tracings: available for review Prior: Changed Discharge Plan Dx/Rx/DC Orders Clinical Impression: Symptomatic bradycardia, Atrial flutter, Acute kidney injury, Hyperkalemia, diminished renal excretion Disposition Disposition: [facility] ([facility]3] Care [facility]
[2022-12-14 22:14] VITALS: BP 100/49; PULSE 41; RESP 15; O2SAT 98
[2022-12-14 22:26] LABS: Anion Gap 8 (5-15); BUN 62 mg/dL (7-18); BUN/Creat Ratio 24.4 RATIO (10-20); Calcium,Total 8.9 mg/dL (8.5-10.1); Chloride 106 mmol/L (98-107); Creatinine, Serum 2.54 mg/dL (0.70-1.30); EST Glomerular Filtration Rate 26 mL/min (>60); Est Glom Filt Rate - Afr Amer 31 mL/min (>60); Estimated Creatinine Clearance 23.88 ml/min; Glucose 192 mg/dL (74-106); Potassium 5.4 mmol/L (3.5-5.1); Sodium Level 137 mmol/L (136-145)
[2022-12-14 22:36] VITALS: BP 99/47; PULSE 35; RESP 21; O2SAT 98
[2022-12-14 22:41] LABS: Troponin-I HS 48 pg/mL (3.0-78.0)
[2022-12-14 23:03] VITALS: BP 99/55; PULSE 35; RESP 16; O2SAT 98
--- NOTE | 2022-12-14 23:28 | PCM.HP.STD ---
HPI - General General Date of Admission: 12/15/22 Date of Service: 12/14/22 Chief Complaint: Near syncope, bradycardia. HPI Narrative The patient is an 82 y/o M w/ PMHx: Depression and Anxiety, MIKY, Systolic CHF/Nonischemic cardiomyopathy, HTN, HLD, PAF, Hx Prostate CA s/p prostate surgery, CKD stage III unclear subtype who presents to the [facility] ED on 12/14/22 with history of persistently low heart rate over the last 2 weeks however it was more severe on day of current presentation and notes that he was even alerted by bradycardic alarm on his apple watch with procedure on day of presentation with injections in his back with some anesthetics reporting that he was bradycardic at that time as well however he did not feel symptomatic but on evening prior to ED arrival he did note near syncopal sensation with lightheadedness and dizziness with no chest discomfort, dyspnea or any recent ill numbness but given this change prompted ED evaluation. Patient is on beta-pilar therapy and reports this is not a new medication and has not had any recent change lately. While in the ED to evaluate patient there was a sudden call for assistance in his room and upon evaluation patient had a reported syncopal event following utilization of the urinal and had been at the bedside to do so with reporting that following he passed out and had myoclonic jerking eventually quickly coming to within seconds with diaphoresis and nausea as well as lightheaded and dizziness which abated. During this time he had significant bradycardia down into the 20s but this improved into the 40s. 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 Work-up in the ED included T97.5, heart rate 37 down to 35, BP initially 105/73 with most recent repeat 99/55, respiratory rate 16, 98% on room air, CBC with WC 12.2, hemoglobin 14.8, platelet 253 with left shift, BMP with potassium 5.4, BUN/creatinine 62/2.54, glucose 192, troponin 48, EKG with atrial flutter with a 6-1 conduction with no acute evidence of ischemia with PVCs. ED did discuss case with learning consultant Dr. Rodriguez who agreed with admission, hold on patient's hypertensive regimen and requested staff place temporary pacer leads with single dose of Kayexalate administered secondary to mild hyperkalemia. In the ED patient ministered Kayexalate 15 g p.o. x1. [facility] Medical History (Updated 12/14/22 @ 23:[address] Fabiola Nath MD) CKD (chronic kidney disease), stage III Depression History of hay fever HTN (hypertension) Hyperlipidemia Left bundle branch block (LBBB) Left ventricular diastolic dysfunction LVH (left ventricular hypertrophy) Non-ischemic cardiomyopathy Obstructive sleep apnea Prostate cancer Home Medications folic acid 1 mg tablet 1 mg PO BID 10/11/21 [History Last Taken 12/15/21] potassium citrate 10 mEq (1,080 mg) tablet,extended release 10 meq PO DAILY 10/11/21 [History Last Taken 12/15/21] vitamin B complex 1 cap PO BID 10/11/21 [History Last Taken 12/15/21] rosuvastatin 20 mg tablet 20 mg PO DAILY 12/16/21 [History Last Taken 12/15/21] zolpidem 12.5 mg tablet,extended release,multiphase 12.5 mg PO QHS 04/04/22 [History Last Taken Unknown] furosemide 40 mg tablet 40 mg PO QODAY 07/27/22 [History Last Taken Unknown] celecoxib 200 mg capsule 200 mg PO DAILY PRN Pain 08/10/22 [History Last Taken Unknown] lisinopril 5 mg tablet 5 mg PO DAILY #90 tabs 09/20/22 [Rx Last Taken Unknown] carvedilol 3.125 mg tablet 3.125 mg PO DAILY 12/14/22 [History Last Taken Unknown] duloxetine 20 mg capsule,delayed release 20 mg PO DAILY 12/14/22 [History Last Taken Unknown] Allergy/AdvReac Type Severity Reaction Status Date / Time iodine Allergy Shortness Verified 12/14/22 21:47 of breath other (Patient denies marked maternal/paternal family history including HD, DM, CA.) Surgical History History of left heart catheterization (12/17/21) History of prostate surgery History of total bilateral knee replacement Hx of appendectomy Social History (Updated 12/15/22 @ 01:[address] Fabiola Nath MD) household members: spouse Smoking Status: Never smoker alcohol intake: current alcohol intake frequency: 0-2 drinks per day Alcohol type: beer, wine and hard liquor details: 1 drink per night substance use type: does not use caffeine: Yes Type: coffee Number of servings: 2 ROS ROS Narrative Admission Review of Systems: CONSTITUTIONAL: No weight loss, fever, chills, + weakness or fatigue. HEENT: + Lightheadedness, dizziness. Eyes: No visual loss, blurred vision, double vision or yellow sclerae. Ears, Nose, Throat: No hearing loss, sneezing, congestion, runny nose or sore throat. SKIN: No rash or itching, lesions, wounds. CARDIOVASCULAR: + Lightheadedness, dizziness, syncopal event. No chest pain, chest pressure or chest discomfort, palpitations, edema, orthopnea. RESPIRATORY: No shortness of breath, cough or sputum, wheezing, hemoptysis. GASTROINTESTINAL: No anorexia, nausea, vomiting or diarrhea, abdominal pain, melena, BRBPR. GENITOURINARY: No dysuria, frequency, urgency or retention. NEUROLOGICAL: + Lightheadedness, dizziness, syncopal event, near syncopal sensations. No headache, paralysis, ataxia, numbness or tingling in the extremities, focal weakness, change in bowel or bladder control, seizure. MUSCULOSKELETAL: + muscle, back pain, joint pain or stiffness. HEMATOLOGIC: No anemia, bleeding or bruising. LYMPHATICS: No enlarged nodes. No history of splenectomy. PSYCHIATRIC: + history of depression or anxiety. ENDOCRINOLOGIC: No reports of sweating, cold or heat intolerance. No polyuria or polydipsia. ALLERGIES: + history of rhinitis. Vital Signs Vital Signs Vital Signs: 12/14/22 21:45 12/14/22 22:14 12/14/22 22:36 Temperature 97.5 F L Temperature Source Temporal Pulse Rate 37 L 41 L 35 L Respiratory Rate 15 15 21 H Respiratory Effort Respiratory Pattern Blood Pressure 105/73 100/49 L 99/47 L Blood Pressure Mean 83 66 64 Pulse Ox 100 98 98 Oxygen Delivery Method Room Air Room Air Room Air 12/14/22 22:38 12/14/22 23:03 Temperature Temperature Source Pulse Rate 35 L Respiratory Rate 16 Respiratory Effort Non-Labored Respiratory Pattern Normal Blood Pressure 99/55 L Blood Pressure Mean 69 Pulse Ox 98 Oxygen Delivery Method Room Air Weight Weight: 180 lb Body Mass Index (BMI) 25.1 Physical Exam Narrative Physical Examination: General: Awake, alert, oriented x 3 and cooperative, improved following recent syncopal event, no obvious confusion with return to baseline promptly, still mildly diaphoretic but denies any lightheadedness or dizziness currently. Skin: Normal color, normal turgor, no icterus, no cyanosis. HEENT: AT/NC, EOMI, PERRLA, dry MM, no carotid bruits or JVD noted. Lungs: Mildly diminished, greater bases, appropriate effort, no rales, ronchi or wheezing. Heart: Bradycardic, regular; no gallop, rub audible. Abdomen: Soft, NTTP, ND, mildly hyperactive BS, no HSM. Extremities: No cyanosis, clubbing, or edema. Neurological: Patient awake, alert, oriented as noted, cognitive function improved, currently based intact; pupils equally reactive to light and accommodation, cranial nerves II-XII grossly normal, moving all 4 extremities, no focal deficits, strength moderately to severely global decrease secondary to acute presentation Psychiatric: Affect appears fatigued, recent syncopal event, feeling somewhat improved, no acute evidence of depressive or anxiety feelings. Results Lab / Micro Data Result Diagrams: 12/14/22 22:01 12/14/22 22:01 Labs: Laboratory Results - last 24 hr 12/14/22 22:01: WBC 12.2 H, RBC 4.68, Hgb 14.8, Hct 43.9, MCV 93.8, MCH 31.6, MCHC 33.7, RDW Std Deviation 42.0, RDW Coeff of [place] 12.0, Plt Count 253, MPV 11.0, Immature Gran % (Auto) 0.400, Neut % (Auto) 84.9 H, Lymph % (Auto) 12.4 L, [place] % (Auto) 2.1, Eos % (Auto) 0.0, Baso % (Auto) 0.2, Absolute Neuts (auto) 10.3 H, Absolute Lymphs (auto) 1.51, Nucleated RBC % 0 12/14/22 22:01: Sodium 137, Potassium 5.4 H, Chloride 106, Carbon Dioxide 23.0, Anion Gap 8, BUN 62 H, Creatinine 2.54 H, Estim Creat Clear Calc 23.88, Est GFR (MDRD) Af Amer 31 L, Est GFR (MDRD) Non-Af 26 L, BUN/Creatinine Ratio 24.4 H, Glucose 192 H, Calcium 8.9 12/14/22 22:01: Troponin I High Sens 48 Rhythm Strip Rhythm Strip: A flutter with approximately 6: 1 conduction Rate: 37 Ectopy: PVC(s) Assessment & Plan Assessment/Plan (1) Symptomatic bradycardia: (2) Atrial flutter: (3) Acute kidney injury: PLAN: Plan The patient is an 82 y/o M w/ PMHx: Depression and Anxiety, MIKY, Systolic CHF/Nonischemic cardiomyopathy, HTN, HLD, PAF, Hx Prostate CA s/p prostate surgery, CKD stage III unclear subtype who presents to the [facility] ED on 12/14/22 with history of persistently low heart rate over the last 2 weeks however it was more severe on day of current presentation and notes that he was even alerted by bradycardic alarm on his apple watch with procedure on day of presentation with injections in his back with some anesthetics reporting that he was bradycardic at that time as well however he did not feel symptomatic but on evening prior to ED arrival he did note near syncopal sensation with lightheadedness and dizziness with no chest discomfort, dyspnea or any recent ill numbness but given this change prompted ED evaluation. #1. Symptomatic bradycardia with atrial flutter with near syncopal sensation: Given significant events with syncopal event and notable bradycardia in the emergency room we will plan admission to the ICU to be cautious, will continue cardiology consultation initiated per ED, maintain on telemetry monitoring, cycle cardiac enzymes, will obtain magnesium and TSH level, holding all beta-pilar therapy and given also concurrent low blood pressure holding hypertensive regimen regardless, will continue temporary external pacing pads in place and initiate if necessary, as needed atropine if necessary, will cycle cardiac enzymes, continue cardiology consultation, continue judicious hydration, echocardiogram recently performed 10/24/2022 as noted thus will not repeat but defer to cardiology. We will hold on any anticoagulant therapy in case of intervention needs. #2. Acute kidney injury: Unclear specific etiology, admission BUN/Cr 62/2.54, prior baseline creatinine noted to be primarily 1.5-1.7 with most recent prior to current presentation 01/28/2022 creatinine 1.59. Will hydrate, hold nephrotoxic medications and repeat chemistry in AM. If no improvement would obtain renal ultrasound assessment. Urinalysis and FeNa requested. #3. Hyperkalemia: Patient's potassium very mildly elevated 5.4 upon presentation, Kayexalate dose orally x1 administered in the ED, will continue judicious hydration especially given CHF history, repeat level in a.m. #4. Hyperglycemia, possibly stress response: Admission glucose 192, no diabetic history noted, hemoglobin A1c will be requested and if consistent with diabetes will initiate transition to ADA diet with Accu-Cheks with insulin sliding scale as well as nutrition consultation for education and teaching. #5. Chronic systolic CHF/nonischemic cardiomyopathy: We will continue aspirin, statin, holding all hypertensive regimen including lisinopril, Lasix and Coreg secondary to symptomatic bradycardia with concurrent low blood pressure and concurrent SYLVIA, continue judicious hydration as noted, most recent echocardiogram noted 10/21/2022 with normal LV size, moderate concentric LVH, EF 45%, mild to moderate global hypokinesis of the LV, bileaflet diffuse MV thickening, global longitudinal strain severely abnormal. #6. Hypertension: Given patient low BP upon presentation currently holding hypertensive regimen, add back once appropriate. #7. Hyperlipidemia: We will continue patient on statin therapy, FLP in AM. #8. History of prostate cancer: Status post surgical prostate intervention, considered in remission, encourage continued outpatient follow-up with urology. #9. Anxiety and depression: We will continue patient home duloxetine regimen. #10. MIKY: CPAP nightly if amenable. #11. DVT prophylaxis: SCDs, heparin chemoprophylaxis only. #12. CODE status: Discussed CODE status at length including difference between FULL code, DNR-CCA and DNR-CC status. Following discussions about the differences in these status, requested Full Code status. Advanced Care Planning Face to Face Time: 16 minutes. Admission Evaluation Time spent evaluating chart, patient history, patient evaluation, care planning and discussion with specialists: 77 minutes. Charges/Coding Visit Charges Inpatient E&M: 89815 Init Hosp L3 Procedures Hospitalists Procedures: 81301 Advncd Care Plan 30 Min
[2022-12-14 23:58] LABS: Magnesium 2.5 mg/dL (1.6-2.6)
[2022-12-15] VITALS (30 sets, daily range): BP systolic 74–124; BP diastolic 37–95; PULSE 32–86; RESP 10–25; TEMP 36.4–37.2; O2SAT 94–100; BMI 26.1
[2022-12-15] MEDS: Ondansetron 4 MG/2 ML Vial IV (00:20)
[2022-12-15 00:23] LABS: Mucous, Urine 0 SEEN /hpf (<or=2+); Red Blood Cells-Urine 0 SEEN /hpf (0-5); Squamous Epithelial Cells - UA 0 SEEN /hpf (0-5)
[2022-12-15] MEDS: Sodium Polystyrene Sulfonate 15 GM/60 ML UDC PO (00:24)
[2022-12-15 00:34] LABS: Urine Sodium 15 mmol/L (Not Establ.)
[2022-12-15 00:48] LABS: Color, Urine Yellow (Yellow); Urine Clarity Clear (Clear)
[2022-12-15 00:54] LABS: Glucose, Dipstick NEGATIVE (Normal); Ketone-Dipstick Negative (Negative); Protein-Dipstick 15 mg/dl (Negative); Urine Bilirubin Dipstick Negative (Negative)
[2022-12-15 00:56] LABS: Leukocyte Esterase-Dipstick NEGATIVE /ul (Negative); Nitrite-Dipstick Negative (Negative); Occult Blood-Urine Negative /ul (Negative); Urine Urobilinogen Normal (Normal)
[2022-12-15] MEDS: 0.9% Normal Saline 1,000 ML 100 ML IV ×2 (01:01→12:29)
[2022-12-15 01:10] LABS: Bacteria RARE /hpf (None Seen); Hyaline Cast 0-5 SEEN /lpf (0-5); White Blood Cells 0-5 SEEN /hpf (0-5)
[2022-12-15 02:20] LABS: Troponin-I HS 50 pg/mL (3.0-78.0)
--- NOTE | 2022-12-15 03:26 | CPS ---
Patient wears BIPAP at home Q and does not wish to wear our unit at this time. His family will bring his unit in for him
[2022-12-15] MEDS: 0.9% Normal Saline 1,000 ML 999 ML IV (04:38)
[2022-12-15 04:49] LABS: Absolute Lymphocyte Count 2.17 X10^3/uL (0.83-4.51); Absolute Neutrophil Count 13.2 X10^3/uL (2.0-7.7); Basophil# 0.01 X10^3/uL; Basophil% 0.1 % (0-1); Hematocrit 38.4 % (40-54); Hemoglobin 12.9 g/dL (13.0-16.5); Lymphocyte # 2.17 X10^3/ul (0.83-4.51); Lymphocyte % 13.3 % (19-41); Mean Corp Hgb Conc 33.6 g/dL (32-36); Mean Corpuscular Hgb 31.6 pg (27.0-32.0); Mean Corpuscular Volume 94.1 fL (80-94); Mean Platelet Vol. 11.5 fl (6.2-12.0); Monocyte# 0.87 X10^3/uL; Monocyte% 5.3 % (0-10); NRBC Flagged by Analyzer 0 % (0-5); Neutrophil # 13.18 X10^3/uL (2.7-7.7); Neutrophil % 80.7 % (47-70); Platelet Count 221 K/mm3 (150-450); RBC Distribution Width CV 12.1 % (11.6-14.6); RBC Distribution Width SD 41.8 fl (35.1-43.9); Red Blood Count 4.08 M/mm3 (4.6-6.2); White Blood Count 16.3 K/mm3 (4.4-11.0)
--- NOTE | 2022-12-15 07:00 | PN.HOSP_ITS ---
Subjective Subjective Follow-up for bradycardia Mr. Montero is a 82-year-old male who presented to the emergency department last evening after having a persistently low heart rate for approximately 2 weeks prior to presentation. It was noted to be more severe on the day of presentation and he was alerted by bradycardic alarm on his apple watch. He evidently had a near syncopal episode with lightheadedness and dizziness prior to presentation. He has been on beta-pilar therapy and this is not a new medication for him. He also had a syncopal episode in the emergency department with bradycardia down in the 20s and some myoclonic jerking. He came to within seconds and was back to his baseline mentally however he was diaphoretic and had some nausea and lightheadedness. He was found to be mildly hyperkalemic in the emergency department with a potassium of 5.4 and he was therefore given Kayexalate as there was concern that this may be contributing to his symptoms. His renal function was also markedly above his baseline at 2.54 with a baseline previously of 1.55-1.7. Heart rates through the night appear to be anywhere from 34 to now the highest this morning currently is 58. Patient with ongoing bradycardia and intermittent symptoms with movement. States he feels okay at this time. Objective Data Objective Data Vital Signs: Vital Signs Temp Pulse Resp BP Pulse Ox O2 Del Method O2 Flow Rate 98.3 F 58 L 21 H 89/58 L 99 Room Air 2 12/15/22 01:20 12/15/22 06:00 12/15/22 06:00 12/15/22 06:00 12/15/22 06:00 12/15/22 06:00 12/15/22 03:00 Oxygen Flow Rate (L/min) 2 Oxygen Delivery Method Room Air Weight: 84.9 kg Body Mass Index (BMI) 26.1 Intake & Output: Intake and Output for Last 24 Hours 12/13/22 12/14/22 12/15/22 23:59 23:59 23:59 Intake Total 1561.67 / 1561.67 Output Total 200 / 200 Balance 1361.67 / 1361.67 Lab / Micro Data Result Diagrams: 12/15/22 04:40 12/15/22 06:15 Labs: Laboratory Results - last 24 hr 12/14/22 22:01: WBC 12.2 H, RBC 4.68, Hgb 14.8, Hct 43.9, MCV 93.8, MCH 31.6, MCHC 33.7, RDW Std Deviation 42.0, RDW Coeff of [place] 12.0, Plt Count 253, MPV 11.0, Immature Gran % (Auto) 0.400, Neut % (Auto) 84.9 H, Lymph % (Auto) 12.4 L, [place] % (Auto) 2.1, Eos % (Auto) 0.0, Baso % (Auto) 0.2, Absolute Neuts (auto) 10.3 H, Absolute Lymphs (auto) 1.51, Nucleated RBC % 0 12/14/22 22:01: Sodium 137, Potassium 5.4 H, Chloride 106, Carbon Dioxide 23.0, Anion Gap 8, BUN 62 H, Creatinine 2.54 H, Estim Creat Clear Calc 23.88, Est GFR (MDRD) Af Amer 31 L, Est GFR (MDRD) Non-Af 26 L, BUN/Creatinine Ratio 24.4 H, Glucose 192 H, Calcium 8.9 12/14/22 22:01: Troponin I High Sens 48 12/14/22 22:01: Magnesium 2.5 12/14/22 23:55: Ur Random Sodium 15, Urine Creatinine 256.00 12/14/22 23:55: Urine Color Yellow, Urine Clarity Clear, Urine pH 5.0, Ur Specific [place] 1.020, Urine Protein 15 H, Urine Glucose (UA) NEGATIVE, Urine Ketones Negative, Urine Occult Blood Negative, Urine Nitrite Negative, Urine Bilirubin Negative, Urine Urobilinogen Normal, Ur Leukocyte Esterase NEGATIVE, Urine RBC 0 SEEN, Urine WBC 0-5 SEEN, Ur Squamous Epith Cells 0 SEEN, Urine Bacteria RARE, Hyaline Casts 0-5 SEEN, Urine Mucus 0 SEEN 12/15/22 01:55: Troponin I High Sens 50 12/15/22 04:40: WBC 16.3 H, RBC 4.08 L, Hgb 12.9 L, Hct 38.4 L, MCV 94.1 H, MCH 31.6, MCHC 33.6, RDW Std Deviation 41.8, RDW Coeff of [place] 12.1, Plt Count 221, MPV 11.5, Immature Gran % (Auto) 0.600, Neut % (Auto) 80.7 H, Lymph % (Auto) 13.3 L, [place] % (Auto) 5.3, Eos % (Auto) 0.0, Baso % (Auto) 0.1, Absolute Neuts (auto) 13.2 H, Absolute Lymphs (auto) 2.17, Nucleated RBC % 0 12/15/22 04:40: Sodium Cancelled, Potassium Cancelled, Chloride Cancelled, Carbon Dioxide Cancelled, Anion Gap Cancelled, BUN Cancelled, Creatinine Cancelled, Estim Creat Clear Calc Cancelled, Est GFR (MDRD) Af Amer Cancelled, Est GFR (MDRD) Non-Af Cancelled, BUN/Creatinine Ratio Cancelled, Glucose Cancelled, Calcium Cancelled, Total Bilirubin Cancelled, AST Cancelled, ALT Cancelled, Alkaline Phosphatase Cancelled, Troponin I High Sens Cancelled, Total Protein Cancelled, Albumin Cancelled, Globulin Cancelled, Albumin/Globulin Ratio Cancelled, Triglycerides Cancelled, Cholesterol Cancelled, LDL Cholesterol Cancelled, VLDL Cholesterol Cancelled, HDL Cholesterol Cancelled, TSH Cancelled 12/15/22 05:05: Sodium Cancelled, Potassium Cancelled, Chloride Cancelled, Carbon Dioxide Cancelled, Anion Gap Cancelled, BUN Cancelled, Creatinine Cancelled, Estim Creat Clear Calc Cancelled, Est GFR (MDRD) Af Amer Cancelled, Est GFR (MDRD) Non-Af Cancelled, BUN/Creatinine Ratio Cancelled, Glucose Cancelled, Calcium Cancelled, Total Bilirubin Cancelled, AST Cancelled, ALT Cancelled, Alkaline Phosphatase Cancelled, Troponin I High Sens Cancelled, Total Protein Cancelled, Albumin Cancelled, Globulin Cancelled, Albumin/Globulin Ratio Cancelled, Triglycerides Cancelled, Cholesterol Cancelled, LDL Cholesterol Cancelled, VLDL Cholesterol Cancelled, HDL Cholesterol Cancelled, TSH Cancelled Rhythm Strip Rhythm Strip: A flutter with approximately 6: 1 conduction Rate: 37 Ectopy: PVC(s) Physical Exam Const alert, oriented x3, no apparent distress and well nourished Constitutional Narrative: Elderly white male sitting up in bed, appears comfortable at this time, nursing at bedside, nontoxic HEENT head/scalp atraumatic and moist oral mucous membranes HEENT Narrative: Dentition is fair, Mallampati is 2-3, no thrush Head and Scalp: normocephalic Resp normal respiratory effort, no retractions, no use of accessory muscles and clear to auscultation bilaterally Auscultation: Negative for crackles, rhonchi or wheezes Cardio S1 normal heart sound, S2 normal heart sound, no murmurs, no rub, no gallops and no clicks; Negative for regular rate or regular rhythm Cardio Narrative: Bradycardia with irregular rhythm GI normal to inspection, nondistended, normoactive bowel sounds, soft to palpation and non-tender Extremity no clubbing, cyanosis or edema Extremity Narrative: 2+ pedal pulses Neuro oriented x3, moves all extremities and no focal motor deficits Speech: speech normal Psych affect normal Psych Narrative: Very pleasant and appropriately interactive Assessment & Plan Assessment/Plan (1) Syncope: (2) Symptomatic bradycardia: (3) Atrial flutter: (4) HFrEF (heart failure with reduced ejection fraction): (5) Hyperkalemia, diminished renal excretion: (6) Acute kidney injury: PLAN: Plan Symptomatic bradycardia -Concern for sick sinus syndrome as it did appear an EKG he has some underlying atrial flutter -Cardiac enzymes are being cycled but thus far negative for any elevation -TSH is 1.05 and within normal limits -Continue to hold beta-pilar--> Coreg 3.125 mg p.o. twice daily -Continue external pacing pads -Atropine at bedside -Most recent echo from 10/24/2022 demonstrated EF of 45%, mild to moderate global hypokinesis of the LV and bileaflet diffuse mitral valve thickening -Repeat echo pending -Anticoagulation on hold in case of intervention needed with pacemaker -Cardiology is following-appreciate input -May need pacemaker or ICD pacer system depending on EF SYLVIA on CKD stage IIIb -Baseline serum creatinine appears to be between 1.5 and 1.7 -Creatinine on admission 2.54--> down to 2.34 -Avoid nephrotoxins -Switch IV fluids to half-normal saline at a rate of 75 cc/h -Hold Lasix and lisinopril Hyperkalemia -Potassium 5.4 on admission -Kayexalate given with bradycardia -Now resolved Hyperglycemia -Glucose on presentation was 192 -No history of diabetes -Hemoglobin A1c was 5.5 at admission Chronic HFrEF secondary to nonischemic cardiomyopathy -Currently compensated and not in any acute failure -Continue aspirin -Continue statin -Hypertensive regimen on hold with borderline blood pressures and bradycardia(this includes Lasix, lisinopril, Coreg) -Repeat echocardiogram pending Hypertension -Blood pressure is currently borderline low -Lasix, lisinopril, metoprolol on hold -Continue to monitor and restart antihypertensives once appropriate Hyperlipidemia -Lipid panel shows total cholesterol 139/LDL 64/HDL 62/triglyceride 67 -Continue home statin History of prostate cancer -Status post surgical prostate removal -Currently considered in remission -No current issues MIKY -Nocturnal CPAP Anxiety/depression -Continue home duloxetine DVT prophylaxis -Subcu heparin -SCDs CODE STATUS -Full code Charges/Coding Visit Charges Inpatient E&M: 41672 Subs Hosp L2
[2022-12-15 07:27] LABS: ALB/GLOB Ratio 0.8 RATIO (0.9-2.4); AST(SGOT) 20 U/L (15-37); Alanine Aminotransfer ALT/SGPT 31 U/L (16-61); Albumin, Serum 2.9 g/dL (3.2-5.0); Alkaline Phosphatase 62 U/L (45-117); Anion Gap 11 (5-15); BUN 65 mg/dL (7-18); BUN/Creat Ratio 27.8 RATIO (10-20); Chloride 109 mmol/L (98-107); Cholesterol 139 mg/dL (200); Creatinine, Serum 2.34 mg/dL (0.70-1.30); EST Glomerular Filtration Rate 28 mL/min (>60); Est Glom Filt Rate - Afr Amer 34 mL/min (>60); Estimated Creatinine Clearance 25.92 ml/min; Globulin 3.5 g/dL (2.2-4.2); Glucose 134 mg/dL (74-106); High Density Lipoprotein 62 mg/dL; Potassium 4.8 mmol/L (3.5-5.1); Protein, Total 6.4 g/dL (6.4-8.2); Sodium Level 140 mmol/L (136-145); Thyroid Stim Hormone (TSH) 1.05 uIU/mL (0.358-3.74); Triglycerides 67 mg/dL; Troponin-I HS 56 pg/mL (3.0-78.0); Very Low Density Lipoprotein 13 mg/dL (5-40)
[2022-12-15] MEDS: DULoxetine Hcl 20 MG Capsule PO (09:33)
[2022-12-15] MEDS: Heparin Injection (Vial) 5,000 UNIT/ML VIAL 5000 UNIT SC ×2 (09:33→21:20)
--- NOTE | 2022-12-15 12:28 | CON.PCM.CA_ITS ---
Assessment & Plan Assessment/Plan (1) Symptomatic bradycardia: PLAN: The patient presents for concerns of symptomatic bradycardia. This is based upon his symptoms described above coupled with his atrial dysrhythmia and a slow ventricular response. He states at home his wrist watch has told him that his heart rate has gotten down to less than 40 bpm at different times. In the emergency department he did have an ECG. He had a marked bradycardia dysrhythmia with his atrial dysrhythmia and a slow ventricular response. At the present time he is being monitored. His beta-blockers, which were low-dose, are currently being held. His rate and rhythm are being monitored. He is undergoing further evaluation with a transthoracic echocardiogram to reassess his ventricular wall motion and systolic function for any significant change compared to his previous studies. Depending upon his course and findings he may need to be considered for further evaluation of his underlying conduction system and dysrhythmia and support with either a PPM or depending upon his LV systolic function/LVEF possibly an ICD device. (2) Atrial flutter: PLAN: It appears he has an underlying atrial dysrhythmia. Based upon his rhythm strip they are concerned this is atrial fibrillation/flutter. At the present time he has been bradycardic. His beta-blockers are on hold. He has been treated with enoxaparin/Lovenox as well as subcutaneous heparin. If he remains in his atrial dysrhythmia he will need consideration for oral anticoagulant therapy unless otherwise contraindicated. (3) Non-ischemic cardiomyopathy: PLAN: He does have a nonischemic mediated cardiomyopathy. He does not appear to have evidence of acute CHF at this time. He will need continued modification of his medications without his beta-blockers at this time. This would include continuing his diuretic therapy and his aft erload reducing therapy. His LV systolic function will be reassessed with an echocardiogram (4) HFrEF (heart failure with reduced ejection fraction): PLAN: He has had a history of heart failure with reduced ejection fraction. His EF has varied over time. At the present time he appears without acute symptoms. He will continue medical management as noted above. He will be reassessed with an echocardiogram. (5) Syncope: PLAN: He did have an episode of syncope while in the emergency department. This was after urinating and after he was in the supine position in bed. Its unclear whether this was related to an orthostatic or vagal mediated/s ituational mediated event separate from concerns of his underlying bradycardia. At the moment he is being monitored. He has had no recurrent events thus far. Addt'l Comments Overall, at the present time, he will continue his current monitoring of his heart rate and blood pressures. His rhythm is being monitored. His beta-blockers are being held. He is proceeding with noninvasive cardiovascular evaluation as noted above. Depending upon his findings he may need to be considered for not only alteration of his medications but consideration for some sort of support either with a PPM or potentially an ICD. The above was discussed and reviewed with the patient. The above was also discussed and reviewed with the [facility] em ergency department staff. Comment: Time spent the patient's overall evaluation, examination, review of medical records, documentation, and discussion with the medical staff: 45 minutes. HPI Consult Data Date of Consult: 12/15/22 HPI Narrative HPI Narrative: BERNY INFANTE, is a 82 year old white male who presents for cardiovascular consultation based upon concerns of a combination of near syncope/syncope and bradycardia with concerns of an underlying atrial fibrillation/flutter with a slow ventricular response superimposed upon a history of a non-CAD related cardiomyopathy, chronic systolic mediated CHF, hyperlipidemia, and hypertension with a history of chronic renal insufficiency-currently exacerbated. The patient states that recently he has noted that his wristwatch has been telling him that his heart rate has been slower than usual. He states this is been going on for at least the last 2 weeks. He contacted his son and daughter-in- law. He states his vorzmwsx-wj-evy is an RN. She advised him to notify the physicians and/or go to the emergency department for further evaluation. He states that he has noted during this timeframe being more lightheaded and dizzy at times. He notes while in the emergency department after urinating and lying back on the emergency department bed he subsequently lost consciousness. He states he opened his eyes and was surrounded by multiple people checking on him. Apparently this event included myoclonic jerking-as documented in the [facility] medical record/history of present illness. Based upon the aforementioned concerns he was recommended for further inpatient evalua tion and care. He was placed in the ICU. As part of his evaluation and care medication that he had been on in the past that would impact his conduction system such as his carvedilol was placed on hold. He was also treated with subcutaneous Lovenox/enoxaparin. Since being in the ICU he states he has not had a recurrent near syncopal or syncopal event. He has undergone high-sensitivity troponin I levels. They were negative. He had to an ECG performed. It appeared to demonstrate atrial fibrillation/flutter with a slow ventricular response with a nonspecific IVCD. He has undergone previous noninvasive studies in the past which included an echocardiogram on 10-21-2022 and a stress test on 09-13-2021 and a cardiac catheterization on 12-17-2021. The results of the studies are noted below. He denies any ongoing chest discomfort at this time. He does not recall having any acute orthopnea or PND or worsening peripheral pitting edema. He states he has not sensed his heart rate but has noticed it on his wristwatch. He has since the other symptoms noted above with his lightheadedness and/or dizziness as well as near syncope/syncope. [facility] Medical History (Updated 12/15/22 @ 12:[address] Car Rodriguez MD) CKD (chronic kidney disease), stage III Depression History of hay fever HTN (hypertension) Hyperlipidemia Left bundle branch block (LBBB) Left ventricular diastolic dysfunction LVH (left ventricular hypertrophy) Non-ischemic cardiomyopathy Obstructive sleep apnea Prostate cancer Home Medications folic acid 1 mg tablet 1 mg PO BID 10/11/21 [History Last Taken 12/15/21] potassium citrate 10 mEq (1,080 mg) tablet,extended release 10 meq PO DAILY 10/11/21 [History Last Taken 12/15/21] vitamin B complex 1 cap PO BID 10/11/21 [History Last Taken 12/15/21] rosuvastatin 20 mg tablet 20 mg PO DAILY 12/16/21 [History Last Taken 12/15/21] zolpidem 12.5 mg tablet,extended release,multiphase 12.5 mg PO QHS 04/04/22 [History Last Taken Unknown] furosemide 40 mg tablet 40 mg PO QODAY 07/27/22 [History Last Taken Unknown] celecoxib 200 mg capsule 200 mg PO DAILY PRN Pain 08/10/22 [History Last Taken Unknown] lisinopril 5 mg tablet 5 mg PO DAILY #90 tabs 09/20/22 [Rx Last Taken Unknown] carvedilol 3.125 mg tablet 3.125 mg PO DAILY 12/14/22 [History Last Taken Unknown] duloxetine 20 mg capsule,delayed release 20 mg PO DAILY 12/14/22 [History Last Taken Unknown] Allergy/AdvReac Type Severity Reaction Status Date / Time iodine Allergy Shortness Verified 12/14/22 21:47 of breath Family History other Surgical History History of left heart catheterization (12/17/21) History of prostate surgery History of total bilateral knee replacement Hx of appendectomy Social History (Updated 12/15/22 @ 01:[address] Fabiola Nath MD) household members: spouse Smoking Status: Never smoker alcohol intake: current alcohol intake frequency: 0-2 drinks per day Alcohol type: beer, wine and hard liquor details: 1 drink per night substance use type: does not use caffeine: Yes Type: coffee Number of servings: 2 ROS Constitutional Constitutional: Reports as per HPI Eyes Eyes: Reports as per HPI ENT HEENT: Reports as per HPI Cardiovascular Cardiovascular: Reports dizziness, lightheadedness and syncope Respiratory/Chest Respiratory/Chest: Reports as per HPI Gastrointestinal Gastrointestinal: Reports as per HPI Genitourinary Genitourinary: Reports as per HPI Musculoskeletal Musculoskeletal: Reports as per HPI Integumentary Integumentary: Reports as per HPI Neurologic Neurologic: Reports as per HPI Physical Exam Const alert, oriented x3 and no apparent distress Orientation / Consciousness: awake HEENT normocephalic, head/scalp atraumatic and hearing grossly normal bilaterally Eyes PERRL, EOMs intact bilaterally and no scleral icterus Neck full ROM, supple and no JVD Carotids: normal carotid upstroke Resp normal respiratory effort and clear to auscultation bilaterally Cardio Rhythm: abnormal rhythm irregularly irregular Heart Sounds: S1 normal and S2 normal GI normal to inspection, nondistended, normoactive bowel sounds Extremity no pedal edema Skin no rashes or lesions noted Psych mental status grossly normal Risk Stratification Risk Stratification Applicable: Yes Age >/= 65: Yes >/= 3 CAD Risk Factors (HTN, HLD, DM, family hx of CAD, or current smoker): Yes Aspirin Use in the Past 7 Days: No Severe Angina (>/= episodes in 24 hours): No EKG ST Changes >/= 0.5mm: No Positive Cardiac Marker: No ESTHELA Risk Stratification Score: 2 ESTHELA % Risk: 8% Risk Procedure Criteria Type of Procedure Procedure Type: Elective Elective Risks - COVID COVID Risk Discussion: The surgeon/proceduralist and patient have discussed in detail the risk of exposure to and/or potential harm posed by the COVID-19 virus with having a surgery/procedure at this time versus the risk of delaying the surgery/procedure. It is not possible to know either the risk of delaying the surgery or procedure or chance of getting an infection with perfect accuracy, but a joint decision was made between the patient and the surgeon/proceduralist to proceed at this time with the scheduled surgery/procedure as indicated on the consent form. Objective Data Vital Signs: Vital Signs Temp Pulse Resp BP Pulse Ox O2 Del Method O2 Flow Rate 97.5 F L 52 L 16 97/58 L 95 Room Air 2 12/15/22 12:00 12/15/22 12:00 12/15/22 12:00 12/15/22 12:00 12/15/22 12:00 12/15/22 12:00 12/15/22 03:00 Oxygen Flow Rate (L/min) 2 Oxygen Delivery Method Room Air Weight: 187 lb 2.759 oz Body Mass Index (BMI) 26.1 Intake & Output: Intake and Output for Last 24 Hours 12/13/22 12/14/22 12/15/22 23:59 23:59 23:59 Intake Total 1801.67 / 1801.67 Output Total 625 / 625 Balance 1176.67 / 1176.67 Lab / Micro Data Result Diagrams: 12/15/22 04:40 12/15/22 06:15 Labs: Laboratory Results - last 24 hr 12/14/22 22:01: WBC 12.2 H, RBC 4.68, Hgb 14.8, Hct 43.9, MCV 93.8, MCH 31.6, MCHC 33.7, RDW Std Deviation 42.0, RDW Coeff of Laney 12.0, Plt Count 253, MPV 11.0, Immature Gran % (Auto) 0.400, Neut % (Auto) 84.9 H, Lymph % (Auto) 12.4 L, [place] % (Auto) 2.1, Eos % (Auto) 0.0, Baso % (Auto) 0.2, Absolute Neuts (auto) 10.3 H, Absolute Lymphs (auto) 1.51, Nucleated RBC % 0 12/14/22 22:01: Sodium 137, Potassium 5.4 H, Chloride 106, Carbon Dioxide 23.0, Anion Gap 8, BUN 62 H, Creatinine 2.54 H, Estim Creat Clear Calc 23.88, Est GFR (MDRD) Af Amer 31 L, Est GFR (MDRD) Non-Af 26 L, BUN/Creatinine Ratio 24.4 H, Glucose 192 H, Calcium 8.9 12/14/22 22:01: Troponin I High Sens 48 12/14/22 22:01: Magnesium 2.5 12/14/22 23:55: Ur Random Sodium 15, Urine Creatinine 256.00 12/14/22 23:55: Urine Color Yellow, Urine Clarity Clear, Urine pH 5.0, Ur Specific Henderson 1.020, Urine Protein 15 H, Urine Glucose (UA) NEGATIVE, Urine Ketones Negative, Urine Occult Blood Negative, Urine Nitrite Negative, Urine Bilirubin Negative, Urine Urobilinogen Normal, Ur Leukocyte Esterase NEGATIVE, Urine RBC 0 SEEN, Urine WBC 0-5 SEEN, Ur Squamous Epith Cells 0 SEEN, Urine Bacteria RARE, Hyaline Casts 0-5 SEEN, Urine Mucus 0 SEEN 12/15/22 01:55: Troponin I High Sens 50 12/15/22 04:40: WBC 16.3 H, RBC 4.08 L, Hgb 12.9 L, Hct 38.4 L, MCV 94.1 H, MCH 31.6, MCHC 33.6, RDW Std Deviation 41.8, RDW Coeff of Laney 12.1, Plt Count 221, MPV 11.5, Immature Gran % (Auto) 0.600, Neut % (Auto) 80.7 H, Lymph % (Auto) 13.3 L, [place] % (Auto) 5.3, Eos % (Auto) 0.0, Baso % (Auto) 0.1, Absolute Neuts (auto) 13.2 H, Absolute Lymphs (auto) 2.17, Nucleated RBC % 0 12/15/22 04:40: Sodium Cancelled, Potassium Cancelled, Chloride Cancelled, Carbon Dioxide Cancelled, Anion Gap Cancelled, BUN Cancelled, Creatinine Cancell ed, Estim Creat Clear Calc Cancelled, Est GFR (MDRD) Af Amer Cancelled, Est GFR (MDRD) Non-Af Cancelled, BUN/Creatinine Ratio Cancelled, Glucose Cancelled, Calcium Cancelled, Total Bilirubin Cancelled, AST Cancelled, ALT Cancelled, Alkaline Phosphatase Cancelled, Troponin I High Sens Cancelled, Total Protein Cancelled, Albumin Cancelled, Globulin Cancelled, Albumin/Globulin Ratio Cancelled, Triglycerides Cancelled, Cholesterol Cancelled, LDL Cholesterol Cancelled, VLDL Cholesterol Cancelled, HDL Cholesterol Cancelled, TSH Cancelled 12/15/22 05:05: Sodium Cancelled, Potassium Cancelled, Chloride Cancelled, Carbon Dioxide Cancelled, Anion Gap Cancelled, BUN Cancelled, Creatinine Cancelled, Estim Creat Clear Calc Cancelled, Est GFR (MDRD) Af Amer Cancelled, Est GFR (MDRD) Non-Af Cancelled, BUN/Creatinine Ratio Cancelled, Glucose Cancelled, Calcium Cancelled, Total Bilirubin Cancelled, AST Cancelled, ALT Cancelled, Alkaline Phosphatase Cancelled, Troponin I High Sens Cancelled, Total Protein Cancelled, Albumin Cancelled, Globulin Cancelled, Albumin/Globulin Ratio Cancelled, Triglycerides Cancelled, Cholesterol Cancelled, LDL Cholesterol Cancelled, VLDL Cholesterol Cancelled, HDL Cholesterol Cancelled, TSH Cancelled 12/15/22 06:15: Sodium 140, Potassium 4.8, Chloride 109 H, Carbon Dioxide 20.0 L , Anion Gap 11, BUN 65 H, Creatinine 2.34 H, Estim Creat Clear Calc 25.92, Est GFR (MDRD) Af Amer 34 L, Est GFR (MDRD) Non-Af 28 L, BUN/Creatinine Ratio 27.8 H , Glucose 134 H, Calcium 8.0 L, Total Bilirubin 0.40, AST 20, ALT 31, Alkaline Phosphatase 62, Troponin I High Sens 56, Total Protein 6.4, Albumin 2.9 L, Globulin 3.5, Albumin/Globulin Ratio 0.8 L, Triglycerides 67, Cholesterol 139, LDL Cholesterol 64, VLDL Cholesterol 13, HDL Cholesterol 62, TSH 1.05 Rhythm Strip Rhythm Strip: A flutter with approximately 6: 1 conduction Rate: 37 Ectopy: PVC(s) Cardiology Labs/Tests 12/14/22 22:01: WBC 12.2 H, RBC 4.68, Hgb 14.8, Hct 43.9, MCV 93.8, MCH 31.6, MCHC 33.7, Plt Count 253, MPV 11.0, Immature Gran % (Auto) 0.400, Neut % (Auto) 84.9 H, Lymph % (Auto) 12.4 L, [place] % (Auto) 2.1, Eos % (Auto) 0.0, Baso % (Auto) 0.2, Absolute Neuts (auto) 10.3 H, Nucleated RBC % 0 12/14/22 22:01: Sodium 137, Potassium 5.4 H, Chloride 106, Carbon Dioxide 23.0, Anion Gap 8, BUN 62 H, Creatinine 2.54 H, Est GFR (MDRD) Af Amer 31 L, Est GFR (MDRD) Non-Af 26 L, BUN/Creatinine Ratio 24.4 H, Glucose 192 H, Calcium 8.9 12/14/22 22:01: Magnesium 2.5 12/14/22 23:55: Urine Color Yellow, Urine Clarity Clear, Urine pH 5.0, Ur Specific [place] 1.020, Urine Protein 15 H, Urine Glucose (UA) NEGATIVE, Urine Ketones Negative, Urine Occult Blood Negative, Urine Nitrite Negative, Urine Bilirubin Negative, Urine Urobilinogen Normal, Ur Leukocyte Esterase NEGATIVE, Urine RBC 0 SEEN, Urine WBC 0-5 SEEN 12/15/22 04:40: WBC 16.3 H, RBC 4.08 L, Hgb 12.9 L, Hct 38.4 L, MCV 94.1 H, MCH 31.6, MCHC 33.6, Plt Count 221, MPV 11.5, Immature Gran % (Auto) 0.600, Neut % (Auto) 80.7 H, Lymph % (Auto) 13.3 L, [place] % (Auto) 5.3, Eos % (Auto) 0.0, Baso % (Auto) 0.1, Absolute Neuts (auto) 13.2 H, Nucleated RBC % 0 12/15/22 04:40: Sodium Cancelled, Potassium Cancelled, Chloride Cancelled, Carbon Dioxide Cancelled, Anion Gap Cancelled, BUN Cancelled, Creatinine Cancelled, Est GFR (MDRD) Af Amer Cancelled, Est GFR (MDRD) Non-Af Cancelled, BUN/Creatinine Ratio Cancelled, Glucose Cancelled, Calcium Cancelled, Total Bilirubin Cancelled, Triglycerides Cancelled, Cholesterol Cancelled, LDL Cholesterol Cancelled, VLDL Cholesterol Cancelled, HDL Cholesterol Cancelled 12/15/22 05:05: Sodium Cancelled, Potassium Cancelled, Chloride Cancelled, Carbon Dioxide Cancelled, Anion Gap Cancelled, BUN Cancelled, Creatinine Cancelled, Est GFR (MDRD) Af Amer Cancelled, Est GFR (MDRD) Non-Af Cancelled, BUN/Creatinine Ratio Cancelled, Glucose Cancelled, Calcium Cancelled, Total Bilirubin Cancelled, Triglycerides Cancelled, Cholesterol Cancelled, LDL Cholesterol Cancelled, VLDL Cholesterol Cancelled, HDL Cholesterol Cancelled 12/15/22 06:15: Sodium 140, Potassium 4.8, Chloride 109 H, Carbon Dioxide 20.0 L , Anion Gap 11, BUN 65 H, Creatinine 2.34 H, Est GFR (MDRD) Af Amer 34 L, Est GFR (MDRD) Non-Af 28 L, BUN/Creatinine Ratio 27.8 H, Glucose 134 H, Calcium 8.0 L, Total Bilirubin 0.40, Triglycerides 67, Cholesterol 139, LDL Cholesterol 64, VLDL Cholesterol 13, HDL Cholesterol 62 Rhythm: Atrial fibrillation/flutter with slow ventricular response EKG: As noted above ECHO: 10-21-2022 Interpretation Summary Normal LV size. Moderate concentric left ventricular hypertrophy. The estimated ejection fraction is 45 %. There is mild to moderate global hypokinesis of the left ventricle. Bileaflet diffuse mitral valve thickening. The global longitudinal strain is severely abnormal. The global longitudinal strain = -10.8% (abnormal). Stress Test: 09-13-2021 Stress Test Report Exercise myocardial perfusion stress test. 81-year-old man with a history of chest pain. Stress protocol: Resting EKG demonstrates normal sinus rhythm with a rate of 82 bpm and incomplete left bundle branch block noted.? Resting blood pressure is 128/84 mmHg.? The patient exercised according to the regular Yandel protocol for a total duration of 5 minutes.? Patient completed 2 minutes into stage II of the Yandel protocol.? The maximum heart rate attained was 114 bpm which was 82% of maximum predicted heart rate the maximum workload was 7 metabolic equivalents.? At rest there were no ST or T wave changes noted to suggest ischemia nonspecific ST changes were noted though the patient experienced slight pressure in the lower part of the chest.? The test was terminated due to dyspnea. Myocardial perfusion protocol. 11.7 mCi of technetium 99m sestamibi was injected at rest.? Patient exercised according to regular Yandel protocol for 5 minutes and at peak exercise 33.3 mCi of technetium 99m sestamibi was injected stress images were obtained stress and rest images were reconstructed and compared in the short axis vertical long and horizontal long axis.? Gated images were also obtained. Perfusion SPECT analysis: Review of the stress images demonstrate normal uptake of tracer noted in all areas of the myocardium.? The resting images similarly demonstrate normal uptake of tracer noted in all areas of the myocardium.? No areas of reversibility are noted to suggest ischemia and no previous infarct is noted. Gated SPECT analysis: The gated ejection fraction is 34%. 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 No evidence of ischemia noted at a moderate workload. Cardiac Cath: 12-17-2021 CONCLUSIONS Non obstructive coronary arteries Cardiomyopathy: Dilated Cardiomyopathy: Congestive RECOMMENDATIONS Medical therapy DESCRIPTION OF? PROCEDURE The patient arrived to the procedure lab. The risks and benefits of the procedure as well as a full description of our services here and current unavailability of surgical backup were fully explained to the patient and/or their significant other prior to the catheterization. The Timeout was completed, verifying the correct patient and procedure. The patient's procedural site was prepped and draped in the usual fashion. Local anesthetic was given subcutaneously to right radial region with Lidocaine 2%. Using a modified Seldinger technique, arterial access was obtained via the right radial artery, a 6Fr sheath was inserted.? Left Coronary Artery selective angiography was performed in multiple views using a 5 Fr. 4.0 Huguenot catheter. Right Coronary Artery selective angiography was then performed in multiple views using a 5 Fr. 4.0 Huguenot catheter. LV to AO pullback pressures were then recorded.The arterial sheath was pulled and a TR Band was applied for hemostasis CORONARY ANGIOGRAPHY DOMINANCE:? Right Dominant LEFT HEART ASSESSMENT Left Ventricular Ejection Fraction: by Echo 35 % Global Hypokinesis - Moderate Depressed Left Ventricular systolic function LEFT MAIN: Angiographically normal LEFT ANTERIOR DESCENDING ARTERY: No significant disease noted CIRCUMFLEX ARTERY: No significant disease noted RIGHT CORONARY ARTERY: No significant disease noted
[2022-12-15 13:18] LABS: Hemoglobin A1c 5.5 % (3.8-5.6)
--- NOTE | 2022-12-15 15:00 | CASEMGMT ---
RN?CM?MEDIA BUYER?CM?to room to meet with patient for initial transition planning/care coordination?assessment.?RN?CM?introduced self and role at [facility].? Pt voices understanding and consents to?assessment?at this time.? Pt resting in bed in no distress at this time.? Pt is A/O at this time and answers all questions appropriately.?? Care providers, pharmacy, and demographics verified/updated at this time. PCP: Dr Stern Specialists:Dr Vu-cardiology, Dr Kaminski/Shantal Hurtado, [facility] [employer]-pulmonology, Dr Zaragoza- psychology, [facility], Dr Abad-derm Preferred Pharmacy: [facility] Insurance: [employer] [facility] Prescription Benefit:?Yes Living Will/HPOA:?Has LW and HCPOA, who is his , Abril LNOK: , Abril. Son, Dave. Dtr, Yashira. Living Arrangements: Lives w/ in ranch-style home w/2 steps to enter. Independent w/ADL's. and pt share home mgmt tasks. Transportation:?Pt states drives self and states no transportation concerns at this time.? also drives. DME: ?Pt has a BIPAP from [employer]. Pt states no need for further DME at this time.? HHC/SNF: No hx of either. No needs identified. Pt wishes to return home and states has no concerns with going home at time of discharge.?CM?to follow for any discharge planning/needs.? Pt voices no concerns/needs at this time.? Advised pt to ask for?CM?if any questions/concerns/needs arise.? Voices understanding. PLAN:??Home Gagan HEMPHILLN?RN?CM
--- NOTE | 2022-12-15 15:38 | ECHOD_ITS ---
Reason For Study: Bradycardia Procedure This was a 2D Doppler, Color Flow transthoracic echocardiogram. The exam was of adequate technical quality. Exam performed portable in ICU/CCU. Left Ventricle Normal LV size. Severe concentric left ventricular hypertrophy. Apical false tendon noted. Mild global left ventricular systolic dysfunction. The estimated ejection fraction is 50 %. Septal motion consistent with IVCD. Diastolic function is indeterminate. Right Ventricle Normal RV size. Normal systolic function. Atria The left atrium is mildly enlarged. Normal right atrium. No doppler evidence for ASD. Mitral Valve There is no mitral annular calcification. Mild diffuse mitral valve thickening. Moderate (2+) mitral valve insufficiency. Tricuspid Valve Mild diffuse thickening of the tricuspid valve. Mild tricuspid valve insufficiency. Right ventricular systolic pressure estimated to be 23 mmHg. Aortic Valve Trisinus/trileaflet aortic valve. Mild focal aortic valve calcification. Trivial aortic valve insufficiency. Pulmonic Valve The pulmonic valve is not well visualized. Great Vessels The aortic root is not well visualized. Pericardium/Pleural No pericardial effusion. MMode/2D Measurements & Calculations LVIDd: 4.4 cm IVSd: 1.9 cm LA dimension: 4.8 cm LVIDs: 3.3 cm LVPWd: 1.9 cm RVDd: 3.7 cm FS: 25.2 % LAV(MOD-bp): 60.2 ml LVAd ap4: 28.9 cm2 SV(MOD-sp4): 45.9 ml LAV(MOD-bp) Indexed: 29.9 ml/m2 LVLd ap4: 8.0 cm LAV(MOD-sp2): 57.7 ml EDV(MOD-sp4): 84.8 ml LAV(MOD-sp4): 60.3 ml EDV(sp4-el): 88.4 ml LVAs ap4: 18.4 cm2 LVLs ap4: 7.0 cm ESV(MOD-sp4): 38.9 ml ESV(sp4-el): 41.0 ml EF(MOD-sp4): 54.1 % EF(sp4-el): 53.6 % SV(sp4-el): 47.4 ml LA A4 area: 21.2 cm2 RA A4 area: 17.7 cm2 Doppler Measurements & Calculations MV E max dariel: 100.3 cm/sec MV V2 max: 114.1 cm/sec Ao V2 max: 112.3 cm/sec MV max P.3 mmHg Ao max P.1 mmHg MV V2 mean: 63.7 cm/sec Ao V2 mean: 83.8 cm/sec MV mean P.9 mmHg Ao mean P.2 mmHg MV V2 VTI: 25.5 cm Ao V2 VTI: 24.5 cm AV (velocity ratio): 1.0 LV V1 max: 101.5 cm/sec MR max dariel: 460.6 cm/sec PA V2 max: 88.5 cm/sec LV V1 max P.1 mmHg MR max P.9 mmHg LV V1 mean P.8 mmHg LV V1 mean: 58.9 cm/sec LV V1 VTI: 25.1 cm TR max dariel: 226.1 cm/sec TR max P.5 mmHg ECHO/Echo Complete Interpretation Summary Mild global left ventricular systolic dysfunction. The estimated ejection fraction is 50 %. Septal motion consistent with IVCD. Severe concentric left ventricular hypertrophy. Apical false tendon noted. The left atrium is mildly enlarged. Mild diffuse mitral valve thickening. Moderate (2+) mitral valve insufficiency. Mild diffuse thickening of the tricuspid valve. Mild tricuspid valve insufficiency. Mild focal aortic valve calcification. Trivial aortic valve insufficiency. Right ventricular systolic pressure estimated to be 23 mmHg. Diastolic function is indeterminate. Ordering Physician: Melia Leiva Referring Physician: Joelle Stern M.D. Performed By: Raghav Kraus RCS
[2022-12-15] MEDS: 0.45% Normal Saline 1,000 ML 75 ML IV (16:18)
--- NOTE | 2022-12-15 20:55 | CPS ---
Pt asleep, IS and PEP faraz
[2022-12-15] MEDS: Zolpidem Tartrate 5 MG Tablet PO (21:20)
[2022-12-15] MEDS: Atorvastatin Calcium 40 MG Tablet PO (21:20)
[2022-12-16] VITALS (15 sets, daily range): BP systolic 84–118; BP diastolic 37–74; PULSE 49–90; RESP 14–24; TEMP 36.1–36.6; O2SAT 95–99
[2022-12-16] MEDS: Mag Hydrox/Al Hydrox/Simeth 30 ML UDC PO (04:01)
[2022-12-16] MEDS: 0.45% Normal Saline 1,000 ML 75 ML IV (04:26)
[2022-12-16 06:44] LABS: Absolute Lymphocyte Count 2.08 X10^3/uL (0.83-4.51); Absolute Neutrophil Count 9.9 X10^3/uL (2.0-7.7); Basophil# 0.03 X10^3/uL; Basophil% 0.2 % (0-1); Eosinophil# 0.03 X10^3/uL; Eosinophils% 0.2 % (0-5); Hematocrit 38.6 % (40-54); Hemoglobin 12.5 g/dL (13.0-16.5); Lymphocyte # 2.08 X10^3/ul (0.83-4.51); Mean Corp Hgb Conc 32.4 g/dL (32-36); Mean Corpuscular Volume 95.8 fL (80-94); Mean Platelet Vol. 10.6 fl (6.2-12.0); Monocyte# 0.86 X10^3/uL; Monocyte% 6.6 % (0-10); NRBC Flagged by Analyzer 0 % (0-5); Neutrophil # 9.93 X10^3/uL (2.7-7.7); Neutrophil % 76.5 % (47-70); Platelet Count 201 K/mm3 (150-450); RBC Distribution Width CV 12.3 % (11.6-14.6); RBC Distribution Width SD 43.1 fl (35.1-43.9); Red Blood Count 4.03 M/mm3 (4.6-6.2)
[2022-12-16 07:11] LABS: Anion Gap 9 (5-15); BUN 54 mg/dL (7-18); Calcium,Total 8.3 mg/dL (8.5-10.1); Chloride 109 mmol/L (98-107); Creatinine, Serum 1.69 mg/dL (0.70-1.30); EST Glomerular Filtration Rate 41 mL/min (>60); Est Glom Filt Rate - Afr Amer 50 mL/min (>60); Estimated Creatinine Clearance 35.89 ml/min; Glucose 109 mg/dL (74-106); Magnesium 2.5 mg/dL (1.6-2.6); Phosphorus 3.7 mg/dL (2.5-4.9); Potassium 4.8 mmol/L (3.5-5.1); Sodium Level 138 mmol/L (136-145)
--- NOTE | 2022-12-16 07:54 | PN.CARD_ITS ---
Subjective Subjective The patient was seen and evaluated. Appears to be doing well. Objective Data Vital Signs: Vital Signs Temp Pulse Resp BP Pulse Ox O2 Del Method O2 Flow Rate 97.7 F L 70 15 96/45 L 97 Room Air 2 12/16/22 04:00 12/16/22 07:00 12/16/22 07:00 12/16/22 07:00 12/16/22 07:00 12/16/22 07:00 12/15/22 03:00 Oxygen Flow Rate (L/min) 2 Oxygen Delivery Method Room Air Weight: 192 lb 10.944 oz Body Mass Index (BMI) 26.1 Intake & Output: Intake and Output for Last 24 Hours 12/14/22 12/15/22 12/16/22 23:59 23:59 23:59 Intake Total 3583.33 / 4610.83 1810.0 / 1810.0 Output Total 1750 / 2225 1225 / 1225 Balance 1833.33 / 2385.83 585.0 / 585.0 Lab / Micro Data Result Diagrams: 12/16/22 06:39 12/16/22 06:39 Labs: Laboratory Results - last 24 hr 12/15/22 04:40: Hemoglobin A1c 5.5 12/16/22 06:39: WBC 13.0 H, RBC 4.03 L, Hgb 12.5 L, Hct 38.6 L, MCV 95.8 H, MCH 31.0, MCHC 32.4, RDW Std Deviation 43.1, RDW Coeff of Laney 12.3, Plt Count 201, MPV 10.6, Immature Gran % (Auto) 0.500, Neut % (Auto) 76.5 H, Lymph % (Auto) 16.0 L, [place] % (Auto) 6.6, Eos % (Auto) 0.2, Baso % (Auto) 0.2, Absolute Neuts (auto) 9.9 H, Absolute Lymphs (auto) 2.08, Nucleated RBC % 0 12/16/22 06:39: Sodium 138, Potassium 4.8, Chloride 109 H, Carbon Dioxide 20.0 L , Anion Gap 9, BUN 54 H, Creatinine 1.69 H, Estim Creat Clear Calc 35.89, Est GFR (MDRD) Af Amer 50 L, Est GFR (MDRD) Non-Af 41 L, BUN/Creatinine Ratio 32.0 H , Glucose 109 H, Calcium 8.3 L, Phosphorus 3.7, Magnesium 2.5 Rhythm Strip Rhythm Strip: A flutter with approximately 6: 1 conduction Rate: 37 Ectopy: PVC(s) Cardiology Labs/Tests 12/15/22 04:40: Hemoglobin A1c 5.5 12/16/22 06:39: WBC 13.0 H, RBC 4.03 L, Hgb 12.5 L, Hct 38.6 L, MCV 95.8 H, MCH 31.0, MCHC 32.4, Plt Count 201, MPV 10.6, Immature Gran % (Auto) 0.500, Neut % (Auto) 76.5 H, Lymph % (Auto) 16.0 L, [place] % (Auto) 6.6, Eos % (Auto) 0.2, Baso % (Auto) 0.2, Absolute Neuts (auto) 9.9 H, Nucleated RBC % 0 12/16/22 06:39: Sodium 138, Potassium 4.8, Chloride 109 H, Carbon Dioxide 20.0 L , Anion Gap 9, BUN 54 H, Creatinine 1.69 H, Est GFR (MDRD) Af Amer 50 L, Est GFR (MDRD) Non-Af 41 L, BUN/Creatinine Ratio 32.0 H, Glucose 109 H, Calcium 8.3 L, Phosphorus 3.7, Magnesium 2.5 Rhythm: EKG: ECHO: Stress Test: Cardiac Cath: PCI: CT Surgery: Holter monitor: EPS: PPM: CXR: Chest CT Scan: Radiography Diagnostic Testing: Radiology Impression Echocardiogram 12/15/22 15:38 Interpretation Summary Mild global left ventricular systolic dysfunction. The estimated ejection fraction is 50 %. Septal motion consistent with IVCD. Severe concentric left ventricular hypertrophy. Apical false tendon noted. The left atrium is mildly enlarged. Mild diffuse mitral valve thickening. Moderate (2+) mitral valve insufficiency. Mild diffuse thickening of the tricuspid valve. Mild tricuspid valve insufficiency. Mild focal aortic valve calcification. Trivial aortic valve insufficiency. Right ventricular systolic pressure estimated to be 23 mmHg. Diastolic function is indeterminate. Ordering Physician: Melia Leiva Referring Physician: Joelle Stern M.D. Performed By: Raghav Kraus RCS Physical Exam Const alert, oriented x3 and no apparent distress Orientation / Consciousness: awake HEENT normocephalic, head/scalp atraumatic and hearing grossly normal bilaterally Eyes PERRL, EOMs intact bilaterally and no scleral icterus Neck full ROM, supple and no JVD Carotids: normal carotid upstroke Resp normal respiratory effort and clear to auscultation bilaterally Cardio Rhythm: abnormal rhythm irregularly irregular Heart Sounds: S1 normal and S2 normal GI normal to inspection, nondistended, normoactive bowel sounds Extremity no pedal edema Skin no rashes or lesions noted Psych mental status grossly normal Assessment & Plan Assessment/Plan (1) Symptomatic bradycardia: PLAN: The patient presents with symptomatic bradycardia. This appears to have improved on discontinuing his beta-pilar. His ventricular response rate has also improved. His echocardiogram demonstrated improvement in his ejection fraction to approximately 50%. * Recommendation at this time would be to see how he does on the current medical therapy and obtain a Holter monitor as an outpatient. Depending on the findings further recommendations will be made. (2) Atrial flutter: PLAN: It appears he has an underlying atrial dysrhythmia. It does not appear that this has been diagnosed before and may be a new diagnosis. He will be anticoagulated his rate is controlled at this time and so he would not be put on any rate limiting medications. * Depending on his response on the Holter monitor further recommendations will be made. * He is being considered to be a candidate for the change A. fib trial. (3) Non-ischemic cardiomyopathy: PLAN: He does have a nonischemic mediated cardiomyopathy. His cardiac catheterization in November 2021 demonstrated no obstructive coronary disease. He will continue on guideline directed medical care. (4) HFrEF (heart failure with reduced ejection fraction): PLAN: He has had a history of heart failure with reduced ejection fraction. His EF has varied over time. It is currently improved to approximately 50%. We will continue with low-dose DANA inhibitor if patient can tolerate (5) Syncope: PLAN: He did have an episode of syncope while in the emergency department.This was after urinating and after he was in the supine position in bed. Its unclear whether this was related to an orthostatic or vagal med iated/situational mediated event separate from concerns of his underlying bradycardia. He has had no recurrent events and we would monitor him with a Holter monitor. If stable later today he can be discharged for outpatient follow-up.
[2022-12-16] MEDS: DULoxetine Hcl 20 MG Capsule PO (10:13)
--- NOTE | 2022-12-16 10:46 | CASEMGMT ---
DARRIN CASH NOTE: Pt being discharged home on Eliquis. DARRIN CM to room. Pt provided w/30-day savings card for Eliquis and instructed on use and questions answered. Pt denies having other discharge planning needs/concerns. Gagan DOMINGUEZ RN CM
--- NOTE | 2022-12-16 12:32 | DCINST_ITS ---
Discharge Instructions Diet Discharge Diet: No restrictions Activity Discharge Activity: Return to Normal Activity Weight Bearing Status: Full weight bearing Follow Up Care Test Results: Test results from this visit will be discussed in further detail at your follow- up appointment, if applicable. Discharge Plan Admission Admit Date/Time: 12/14/22 23:30 Primary Reason for Your Visit: Bradycardia Attending Provider: Reddy Leary Primary Care Provider: Joelle Stern Consulting Providers: Car Rodriguez ; Fabiola Nath ; Melia Leiva Instructions Additional Instructions / Restrictions: Turn and your Holter monitor after 24 hours-you may either bring it by the ER this or bring it by Dr. Vu's office on Monday Discharge Orders/Prescriptions Prescriptions: New acetaminophen [Tylenol] 325 mg Tablet 650 mg PO Q4H PRN PRN (Reason: Fever, pain 1-08/29) Qty: 0 0RF Continued rosuvastatin 20 mg tablet 20 mg PO DAILY Label Comments: take 1 tablet by mouth every morning zolpidem 12.5 mg tablet,ext release multiphase 12.5 mg PO QHS Label Comments: take 1 tablet by mouth at bedtime if needed folic acid 1 mg Tablet 1 mg PO BID vitamin B complex Capsule 1 cap PO BID duloxetine 20 mg Capsule,Delayed Release(Dr/Ec) 20 mg PO DAILY lisinopril 5 mg tablet 5 mg PO DAILY Qty: 90 3RF Discontinued furosemide 40 mg tablet 40 mg PO QODAY celecoxib 200 mg capsule 200 mg PO DAILY PRN (Reason: Pain) potassium citrate 10 mEq (1,080 mg) Tablet Extended Release 10 meq PO DAILY carvedilol 3.125 mg tablet 3.125 mg PO DAILY Referrals / Follow Up: Damion Vu MD [Med Staff - Active Staff] - See Referral Note (IN TWO WEEKS) Joelle Stern MD [Primary Care Provider] - Within 2 Weeks Disposition Disposition (needs filled in before D/C Order can be placed): Home, Self Care
--- NOTE | 2022-12-16 13:19 | DS.PCM_ITS ---
Providers Date of Admission: 12/14/22 Date of Discharge: 12/16/22 Primary Care Physician: Dr. Joelle Stern MD Consultations 12/15/22 00:30 Consult: Cardiology Routine Consulting Provider: Car Rodriguez Reason for Consult: Symptomatic bradycardia EMERGENT Consult: No MD Notified: Yes Date Notified: 12/14/22 Time Notified: 23:32 Method of Notification: ED Physician Initiated Reason For Visit: SYMPTOMATIC BRADYCARDIA, SYLVIA, NEAR SYNCOPE Diagnosis Discharge Diagnosis (1) Symptomatic bradycardia: Status: Acute Code(s): R00.1 - Bradycardia, unspecified (2) Atrial flutter: Status: Acute Code(s): I48.92 - Unspecified atrial flutter (3) Non-ischemic cardiomyopathy: Status: Chronic Code(s): I42.8 - Other cardiomyopathies (4) HFrEF (heart failure with reduced ejection fraction): Status: Acute Code(s): I50.20 - Unspecified systolic (congestive) heart failure (5) Syncope: Status: Acute Code(s): R55 - Syncope and collapse Plan 1. Symptomatic bradycardia syncope-possibly secondary to beta-pilar usage #2 acute kidney injury on a backdrop of chronic kidney disease stage IIIb #3 hyperkalemia #4 nonischemic cardiomyopathy #5 essential hypertension #6 hyperlipidemia #7 chronic congestive heart failure with preserved ejection fraction Medications at Discharge Home Medications folic acid 1 mg tablet 1 mg PO BID 10/11/21 vitamin B complex 1 cap PO BID 10/11/21 rosuvastatin 20 mg tablet 20 mg PO DAILY 12/16/21 zolpidem 12.5 mg tablet,extended release,multiphase 12.5 mg PO QHS 04/04/22 lisinopril 5 mg tablet 5 mg PO DAILY #90 tabs 09/20/22 duloxetine 20 mg capsule,delayed release 20 mg PO DAILY 12/14/22 acetaminophen 325 mg tablet (Tylenol) 650 mg PO Q4H PRN PRN Fever, pain 1-08/29 #0 tabs 12/16/22 Hospital Course Operations None Procedures 2-D Echocardiogram Summary of Care Provided Minutes Spent on Discharge: 31 Hospital Course: This 82-year-old white male was seen in the emergency room at [facility] with complaints of low heart rate which was detected on his apple watch. He also complained of a near syncopal episode with lightheadedness and dizziness. Patient was taking a beta-pilar at home. While the patient was in the emergency room, it was noted that he had a reported syncopal episode following using his urinal. During this time the patient has significant bradycardia into the 20s which improved into the 40s. Work-up in the emergency room included labs which showed a slightly elevated potassium, troponin was normal, EKG showed atrial flutter. Patient was admitted to in the context of, he was seen in consultation by cardiology and had an echocardiogram performed, his beta-blockers were held, patient's heart rate stabilized, echocardiogram performed showed an ejection fraction of 50%. Possibility of the patient being entered into a cardiology trial was discussed with the patient, he will follow-up with cardiology concerning this. On 12/16/2022, patient was seen and examined: On examination he appeared in good health and spirits. Vital signs as documented. Skin warm and dry and without overt rashes. Neck without JVD, neck was supple, trachea midline, thyroid was normal. Lungs clear bilaterally, normal air movement was noted. Heart exam notable for irregular rhythm, normal sounds and absence of murmurs, rubs or gallops. Abdomen unremarkable and without evidence of organomegaly, masses, or abdominal aortic enlargement. Bowel sounds are present, abdomen is not distended. Extremities nonedematous, no cyanosis was noted, no clubbing was noted. Neuro: Cranial nerves II through XII are grossly intact, no focal motor deficits were noted, sensation to light touch and pinprick intact, motor exam 5/5 throughout. Psych: Patient is alert and oriented x3, he does not appear anxious or depressed, he does not appear agitated. Patient was placed on Eliquis at the time of discharge-this prescription was phoned in to his pharmacy and a 30-day coupon for this medication was given to the patient. I verified with his pharmacy that after the patient pays down his deductible for his prescription plan, the medication would be reasonable. Patient was cautioned to use only Tylenol for pain, he was instructed to stop his Celebrex. Patient was also cautioned that if he had any abnormal bleeding in the stool, urine, or he had any severe nosebleeds or vomited up any blood, he was to contact his PCP. Patient had a 24-hour Holter monitor applied after he was discharged from the hospital. On 12/16/2022, patient was seen and examined and felt to be stable for discharge home Weight / BMI Weight Weight: 87.4 kg Body Mass Index (BMI) 26.1 ABG / Lab / Microbiology Data Result Diagrams: 12/16/22 06:39 12/16/22 06:39 Laboratory: Laboratory Results - last 24 hr 12/16/22 06:39: WBC 13.0 H, RBC 4.03 L, Hgb 12.5 L, Hct 38.6 L, MCV 95.8 H, MCH 31.0, MCHC 32.4, RDW Std Deviation 43.1, RDW Coeff of Laney 12.3, Plt Count 201, MPV 10.6, Immature Gran % (Auto) 0.500, Neut % (Auto) 76.5 H, Lymph % (Auto) 16.0 L, [place] % (Auto) 6.6, Eos % (Auto) 0.2, Baso % (Auto) 0.2, Absolute Neuts (auto) 9.9 H, Absolute Lymphs (auto) 2.08, Nucleated RBC % 0 12/16/22 06:39: Sodium 138, Potassium 4.8, Chloride 109 H, Carbon Dioxide 20.0 L , Anion Gap 9, BUN 54 H, Creatinine 1.69 H, Estim Creat Clear Calc 35.89, Est GFR (MDRD) Af Amer 50 L, Est GFR (MDRD) Non-Af 41 L, BUN/Creatinine Ratio 32.0 H , Glucose 109 H, Calcium 8.3 L, Phosphorus 3.7, Magnesium 2.5 Radiography Diagnostic Testing: Radiology Impression Echocardiogram 12/15/22 15:38 Interpretation Summary Mild global left ventricular systolic dysfunction. The estimated ejection fraction is 50 %. Septal motion consistent with IVCD. Severe concentric left ventricular hypertrophy. Apical false tendon noted. The left atrium is mildly enlarged. Mild diffuse mitral valve thickening. Moderate (2+) mitral valve insufficiency. Mild diffuse thickening of the tricuspid valve. Mild tricuspid valve insufficiency. Mild focal aortic valve calcification. Trivial aortic valve insufficiency. Right ventricular systolic pressure estimated to be 23 mmHg. Diastolic function is indeterminate. Ordering Physician: Melia Leiva Referring Physician: Joelle Stern M.D. Performed By: Raghav Kraus RCS D/C Instructions Discharge Diet: No restrictions Weight Bearing Status: Full weight bearing Meaningful Use Info Meaningful Use Diagnoses (Choose all that apply): None applicable Discharge Plan Admission Admit Date/Time: 12/14/22 23:30 Primary Reason for Your Visit: Bradycardia Attending Provider: Reddy Leary Primary Care Provider: Joelle Stern Consulting Providers: Car Rodriguez ; Fabiola Nath ; Melia Leiva Instructions Additional Instructions / Restrictions: Turn and your Holter monitor after 24 hours-you may either bring it by the ER this or bring it by Dr. Vu's office on Monday Discharge Orders/Prescriptions Prescriptions: New acetaminophen [Tylenol] 325 mg Tablet 650 mg PO Q4H PRN PRN (Reason: Fever, pain 1-08/29) Qty: 0 0RF Continued rosuvastatin 20 mg tablet 20 mg PO DAILY Label Comments: take 1 tablet by mouth every morning zolpidem 12.5 mg tablet,ext release multiphase 12.5 mg PO QHS Label Comments: take 1 tablet by mouth at bedtime if needed folic acid 1 mg Tablet 1 mg PO BID vitamin B complex Capsule 1 cap PO BID duloxetine 20 mg Capsule,Delayed Release(Dr/Ec) 20 mg PO DAILY lisinopril 5 mg tablet 5 mg PO DAILY Qty: 90 3RF Discontinued furosemide 40 mg tablet 40 mg PO QODAY celecoxib 200 mg capsule 200 mg PO DAILY PRN (Reason: Pain) potassium citrate 10 mEq (1,080 mg) Tablet Extended Release 10 meq PO DAILY carvedilol 3.125 mg tablet 3.125 mg PO DAILY Referrals / Follow Up: Damion Vu MD [Med Staff - Active Staff] - See Referral Note (IN TWO WEEKS) Joelle Stern MD [Primary Care Provider] - Within 2 Weeks Disposition Disposition (needs filled in before D/C Order can be placed): Home, Self Care Charges/Coding Visit Charges Inpatient E&M: 62380 Disch Hosp >30min
== END 2022-12-16 13:45 | disposition home or self-care (01) | DRG 309 ==
LOC: ED 23:13 → ICU 12-15 02:35
PROVIDERS: Internal Medicine; Admitting Provider Family Medicine; Emergency Provider Emergency Medicine; PCP Internal Medicine; Visit Provider Internal Medicine
DX: R00.1 Bradycardia, unspecified (principal); N17.9 Acute kidney failure, unspecified; I13.0 Hypertensive heart and chronic kidney disease with heart failure and stage 1 through stage 4 chronic kidney disease, or unspecified chronic kidney disease; I50.32 Chronic diastolic (congestive) heart failure; I42.8 Other cardiomyopathies; I48.92 Unspecified atrial flutter; I48.0 Paroxysmal atrial fibrillation; N18.32 Chronic kidney disease, stage 3b; E78.5 Hyperlipidemia, unspecified; G47.33 Obstructive sleep apnea (adult) (pediatric); E87.5 Hyperkalemia; F41.9 Anxiety disorder, unspecified; T44.7X5A Adverse effect of beta-adrenoreceptor antagonists, initial encounter; F32.A Depression, unspecified; R55 Syncope and collapse; R73.9 Hyperglycemia, unspecified; Z79.01 Long term (current) use of anticoagulants; Z79.82 Long term (current) use of aspirin; Z79.899 Other long term (current) drug therapy; Z85.46 Personal history of malignant neoplasm of prostate
CPT/HCPCS: 36415; 80048; 80053; 80061; 81001; 82570; 83036; 83735; 84100; 84300; 84443; 84484; 85025; 93005; 93306; 94668; 99285; J7030; A4216; J2405

== ENCOUNTER → 2022-12-16 | Outpatient (CLI) | payer MEDICARE, SELFPAY | END | disposition home or self-care (01) | LOC: PSN 14:43 | PROVIDERS: PCP Internal Medicine; Visit Provider Internal Medicine Cardiovascular Disease | DX: R00.1 Bradycardia, unspecified (principal); I48.92 Unspecified atrial flutter | CPT/HCPCS: 93225; 93226 ==

== ENCOUNTER → 2022-12-29 | Outpatient (CLI) | payer MEDICARE, SELFPAY ==
[2022-12-29 12:14] LABS: Bacteria 0 SEEN /hpf (None Seen); Mucous, Urine 0 SEEN /hpf (<or=2+); Red Blood Cells-Urine 0 SEEN /hpf (0-5); Squamous Epithelial Cells - UA 0 SEEN /hpf (0-5); White Blood Cells 0 SEEN /hpf (0-5)
[2022-12-29 12:36] LABS: Absolute Lymphocyte Count 2.37 X10^3/uL (0.83-4.51); Absolute Neutrophil Count 5.1 X10^3/uL (2.0-7.7); Basophil# 0.06 X10^3/uL; Basophil% 0.7 % (0-1); Eosinophil# 0.19 X10^3/uL; Eosinophils% 2.1 % (0-5); Hematocrit 41.4 % (40-54); Hemoglobin 13.4 g/dL (13.0-16.5); Lymphocyte # 2.37 X10^3/ul (0.83-4.51); Lymphocyte % 26.7 % (19-41); Mean Corp Hgb Conc 32.4 g/dL (32-36); Mean Corpuscular Hgb 31.3 pg (27.0-32.0); Mean Corpuscular Volume 96.7 fL (80-94); Mean Platelet Vol. 10.7 fl (6.2-12.0); Monocyte# 1.04 X10^3/uL; Monocyte% 11.7 % (0-10); NRBC Flagged by Analyzer 0 % (0-5); Neutrophil # 5.08 X10^3/uL (2.7-7.7); Neutrophil % 57.4 % (47-70); Platelet Count 216 K/mm3 (150-450); RBC Distribution Width SD 45.6 fl (35.1-43.9); Red Blood Count 4.28 M/mm3 (4.6-6.2); White Blood Count 8.9 K/mm3 (4.4-11.0)
[2022-12-29 12:46] LABS: Color, Urine Yellow (Yellow); Glucose, Dipstick Normal (Normal); Ketone-Dipstick Negative (Negative); Leukocyte Esterase-Dipstick Negative /ul (Negative); Nitrite-Dipstick Negative (Negative); Occult Blood-Urine Negative /ul (Negative); Protein-Dipstick Negative (Negative); Specific Gravity, Urine 1.015 (1.002-1.030); Urine Bilirubin Dipstick Negative (Negative); Urine Clarity Sl. Cloudy (Clear); Urine Urobilinogen Normal (Normal)
[2022-12-29 13:13] LABS: Anion Gap 6 (5-15); BUN 30 mg/dL (7-18); BUN/Creat Ratio 19.5 RATIO (10-20); Calcium,Total 9.1 mg/dL (8.5-10.1); Chloride 111 mmol/L (98-107); Creatinine, Serum 1.54 mg/dL (0.70-1.30); EST Glomerular Filtration Rate 46 mL/min (>60); Est Glom Filt Rate - Afr Amer 56 mL/min (>60); Glucose 90 mg/dL (74-106); Potassium 4.3 mmol/L (3.5-5.1); Sodium Level 141 mmol/L (136-145)
== END | disposition home or self-care (01) ==
LOC: LAB 12:11
PROVIDERS: PCP Internal Medicine; Visit Provider Internal Medicine Cardiovascular Disease
DX: I48.92 Unspecified atrial flutter (principal); I42.8 Other cardiomyopathies; I50.20 Unspecified systolic (congestive) heart failure; I49.5 Sick sinus syndrome
CPT/HCPCS: 36415; 80048; 81001; 85025

== ENCOUNTER 2023-01-09 15:30 | Observation (INO) | payer MEDICARE, SELFPAY ==
[2022-12-30 08:42] VITALS: BMI 26.0
[2023-01-09] VITALS (10 sets, daily range): BP systolic 90–119; BP diastolic 54–86; PULSE 68–79; RESP 14–21; TEMP 36.4–36.7; O2SAT 93–100; BMI 26.5
--- NOTE | 2023-01-09 15:28 | CL.IE_ITS ---
Patient: BERNY INFANTE Study Date: 01/09/2023 Performing: Damion Vu MD : 1940 Age: 82 Gender: male PROCEDURES PERFORMED [id number]-([id number])INITIAL PACER INSERT+VENTRICULAR LEAD INDICATIONS Sinoatrial node dysfunction/Sick sinus syndrome PROCEDURE DETAILS The patient was brought to the Catheterization Lab in the postabsorptive nonsedated state. Informed consent was obtained prior to the procedure. Local anesthetic was given subcutaneously to the left upper chest area with Lidocaine 2%. Access was achieved and a guidewire was advanced into the left subclavian vein. A peel-away sheath was inserted into the left subclavian vein. PPM ventricular lead was inserted / positioned to right ventricular apex. PPM ventricular lead testing performed. PPM ventricular lead testing performed. A peel-away sheath was inserted into the left subclavian vein. The wire was then removed. PPM atrial lead was inserted / positioned to the right atrial appendage. PPM atrial lead testing performed. Device pocket was irrigated with antibiotic. PPM generator was attached to the lead(s) and inserted into the pocket. Subcutaneous closure was completed. Skin closure was completed. Steri-strips applied to Lt chest area. The patient tolerated the procedure well. Estimated Blood Loss: < 10 mls IMPLANTED / EX-PLANTED DEVICES IMPLANTED DEVICE(S): PPM Ventricular lead - Rn Patient Care: [employer], Model # 7842 , Serial # [id number] PPM Atrial lead - Rn Patient Care: [email or web address], Model # 7841 , Serial # [id number] PPM Generator - Rn Patient Care: [employer], Model # L111 , Serial # [id number] DEVICE PARAMETERS ATRIAL LEAD PARAMETERS: P wave- .9 (mV) Current- 1.5 (mA) threshold- .8 (V) impedence- 528 (OHMS) VENTRICULAR LEAD PARAMETERS: R wave- 7.9 (mV) Current- .8 (mA) threshold- .6 (V) impedence- 792 (OHMS) DEVICE PARAMETERS: Mode- ddd Lower rate- 50 Upper rate- 130 CONCLUSIONS / RECOMMENDATIONS Device Conclusions: Successful implantation of a dual chamber pacemaker Device Recommendations: Follow up with Primary Care Physician PROCEDURE MEDICATIONS Versed 1 mg IV Fentanyl 50 mcg IV Versed 1 mg IV Antibiotic given in appropriate timeframe. Ancef 2 Gm IV 01/09/2023 14:02:36 Benadryl 50 mg IV @ 01/09/2023 14:09:46 Solu-medrol 125 mg IV 01/09/2023 14:09:56 Signed By Damion Vu MD On 01/09/2023 15:28:05 Damion Vu MD
[2023-01-09] MEDS: Folic Acid 1 MG Tablet PO (18:00)
[2023-01-09] MEDS: Vitamin B Comp W-C Capsule 1 CAP PO (21:18)
[2023-01-09] MEDS: Zolpidem Tartrate 5 MG Tablet PO (21:18)
[2023-01-09] MEDS: Atorvastatin Calcium 40 MG Tablet PO (21:18)
[2023-01-10 03:36] VITALS: BP 112/74; PULSE 77; RESP 18; TEMP 36.7; O2SAT 94
[2023-01-10 08:26] VITALS: BP 98/77; PULSE 74; RESP 16; TEMP 36.5; O2SAT 95
[2023-01-10] MEDS: DULoxetine Hcl 20 MG Capsule PO (08:30)
[2023-01-10] MEDS: Folic Acid 1 MG Tablet PO (08:30)
[2023-01-10] MEDS: Vitamin B Comp W-C Capsule 1 CAP PO (08:30)
--- NOTE | 2023-01-10 09:30 | RAD_ITS ---
STUDY: X-RAY CHEST REASON FOR EXAM: Male, 82 years old. Post pacer TECHNIQUE: PA and lateral views of the chest. COMPARISON: Comparison is made with prior study dated 03/31/2013. FINDINGS: EKG electrodes are seen. The patient is status post left-sided dual chamber pacemaker placement. There is good positioning. Hyperinflation. Mild increased linear markings at the left lung base with blunting of the left cosmetic angle suggestive of scarring. Normal size heart. Normal mediastinum and sourav. Normal visualized pulmonary arteries. There is atherosclerotic tortuosity of the aortic arch and descending thoracic aorta. There are diffuse degenerative changes of the visualized thoracic spine. Normal visualized ribs, clavicles, and shoulders. There is no demonstrated abnormality of the visualized soft tissue structures of the upper abdomen. RAD/Chest PA and Lateral IMPRESSION: Status post left-sided dual chamber pacemaker placement. There is good position. Mild increased markings at the left lung base with blunting of the left costophrenic angle suggestive of scarring. Electronically Signed: Konstantin Gonsales MD at 12:08 EST ,
--- NOTE | 2023-01-10 12:53 | PCM.PN.CARD ---
Subjective Subjective Patient seen and evaluated Objective Data Vital Signs: Vital Signs Temp Pulse Resp BP Pulse Ox O2 Del Method 97.7 F L 74 16 98/77 95 Room Air 01/10/23 08:26 01/10/23 08:26 01/10/23 08:26 01/10/23 08:26 01/10/23 08:26 01/10/23 08:30 Oxygen Delivery Method Room Air Weight: 190 lb 5 oz Body Mass Index (BMI) 26.5 Intake & Output: Intake and Output for Last 24 Hours 01/08/23 01/09/23 01/10/23 23:59 23:59 23:59 Intake Total 480 / 680 500 / 500 Output Total 200 / 500 800 / 800 Balance 280 / 180 -300 / -300 Cardiology Labs/Tests Rhythm: EKG: ECHO: Stress Test: Cardiac Cath: PCI: CT Surgery: Holter monitor: EPS: PPM: CXR: Chest CT Scan: Radiography Diagnostic Testing: Radiology Impression Chest X-Ray 01/10/23 09:30 IMPRESSION: Status post left-sided dual chamber pacemaker placement. There is good position. Mild increased markings at the left lung base with blunting of the left costophrenic angle suggestive of scarring. Electronically Signed: Konstantin Gonsales MD at 12:08 EST , Physical Exam Const alert, oriented x3 and no apparent distress General Appearance: cooperative HEENT hearing grossly normal bilaterally Head and Scalp: atraumatic Eyes EOMs intact bilaterally Neck General: normal visual inspection Chest inspection of chest normal and palpation of chest normal Resp normal respiratory effort Auscultation: clear to auscultation bilaterally Cardio regular rate, regular rhythm, S1 normal heart sound and S2 normal heart sound Jugular Venous Distention: JVD GI normal to inspection, nondistended, normoactive bowel sounds Extremity normal capillary refill and no pedal edema Peripheral Pulses: Yes pulses 2+ throughout and femoral pulses present Skin no rashes or lesions noted Neuro oriented x3 and CN's II-XII intact bilaterally Psych Appearance: grossly normal and appropriate Assessment & Plan Assessment/Plan (1) Pacemaker: PLAN: pacemaker placement without issues. No Cxr Abnormalities (2) Atrial flutter: PLAN: Will hold off on eliquis till next week.
--- NOTE | 2023-01-10 12:57 | DCINST_ITS ---
Discharge Instructions Diet Discharge Diet: No restrictions Activity Discharge Activity: May Not Drive Additional Activity Instructions:: May shower or bathe on [day 3]. Do not scrub the incision or soak in the tub. Just wash with soap and let the water run over the incision. Gently pat dry with towel. Medications: Take your pain medication as directed. Refer to your discharge instruction sheet for a list of medications you are to take. Dressing / Incision Call your doctor if your incision/area has: Continuous Slow Oozing, Sudden Increased Bleeding, Increased Pain/ Swelling, Increased Redness, Foul Smelling Discharge and Swelling at the incision site Call your doctor if you observe: Fever of 101 or Higher, Shortness of breath, Dizziness, Fainting spells, Swelling in the ankles, Chest pain, Prolonged hiccupping and Increased palpitations (irregular heartbeat) Suture Line Care: Avoid Pulling/Pushing and Avoid Pinching/Bending Cleanse incision/area with: Do not get Incision Wet and Keep Dressing Clean & Dry Additional Dressing/Incision Instructions:: When dressing is removed, wash and dry incision. Keep covered with a light bandage if it is rubbing against your clothing. Do not cover the incision with an airtight bandage. Change the bandage daily. Do not remove steri strips. The strips will fall off on their own. Follow Up Care Please Follow Up With: Damion Vu MD When: Pacer follow up on 01/19/11 at 11am Test Results: Test results from this visit will be discussed in further detail at your follow- up appointment, if applicable. Discharge Plan Admission Admit Date/Time: 01/09/23 15:30 Attending Provider: Damion Vu Primary Care Provider: Joelle Stern Discharge Orders/Prescriptions Prescriptions: Continued rosuvastatin 20 mg tablet 20 mg PO DAILY Label Comments: take 1 tablet by mouth every morning zolpidem 12.5 mg tablet,ext release multiphase 12.5 mg PO QHS Label Comments: take 1 tablet by mouth at bedtime if needed folic acid 1 mg Tablet 1 mg PO BID vitamin B complex Capsule 1 cap PO BID duloxetine 20 mg Capsule,Delayed Release(Dr/Ec) 20 mg PO DAILY acetaminophen [Tylenol] 325 mg Tablet 650 mg PO Q4H PRN PRN (Reason: Fever, pain 1-10/10) Qty: 0 0RF lisinopril 5 mg tablet 5 mg PO DAILY Qty: 90 3RF Held Eliquis 2.5 mg tablet 2.5 ea PO DAILY Hold Instructions: Resume on 01/18/23. Label Comments: take 1 tablet by mouth twice a day Referrals / Follow Up: Joelle Stern MD [Primary Care Provider] - Disposition Disposition (needs filled in before D/C Order can be placed): Home, Self Care
[2023-01-10 13:52] VITALS: BP 103/64; PULSE 81; RESP 16; TEMP 36.6; O2SAT 95
--- NOTE | 2023-01-10 14:24 | PHA.DC.MR ---
Pharmacy Service has performed discharge medication reconciliation for this patient. The patient's discharge medication list was reviewed for discrepancies and discrepancies were resolved. Home Medications folic acid 1 mg tablet 1 mg PO BID supplement 10/11/21 vitamin B complex 1 cap PO BID vitamin 10/11/21 rosuvastatin 20 mg tablet 20 mg PO DAILY cholesterol 12/16/21 zolpidem 12.5 mg tablet,extended release,multiphase 12.5 mg PO QHS sleep 04/04/22 lisinopril 5 mg tablet 5 mg PO DAILY #90 tabs 09/20/22 duloxetine 20 mg capsule,delayed release 20 mg PO DAILY mental health 12/14/22 acetaminophen 325 mg tablet (Tylenol) 650 mg PO Q4H PRN PRN Fever, pain 1-08/29 #0 tabs 12/16/22 apixaban 2.5 mg tablet (Eliquis) 2.5 ea PO DAILY blood thinner 12/29/22
== END 2023-01-10 12:57 | disposition home or self-care (01) ==
LOC: PCU 16:39
PROVIDERS: Admitting Provider Internal Medicine Cardiovascular Disease; PCP Internal Medicine; Referring Provider Internal Medicine Cardiovascular Disease; Visit Provider Internal Medicine Cardiovascular Disease
DX: Z45.018 Encounter for adjustment and management of other part of cardiac pacemaker (principal); I13.0 Hypertensive heart and chronic kidney disease with heart failure and stage 1 through stage 4 chronic kidney disease, or unspecified chronic kidney disease; I50.20 Unspecified systolic (congestive) heart failure; I49.5 Sick sinus syndrome; I48.92 Unspecified atrial flutter; I48.19 Other persistent atrial fibrillation; N18.30 Chronic kidney disease, stage 3 unspecified; R55 Syncope and collapse; I45.2 Bifascicular block; Z79.899 Other long term (current) drug therapy; Z79.01 Long term (current) use of anticoagulants; E78.5 Hyperlipidemia, unspecified; G47.33 Obstructive sleep apnea (adult) (pediatric)
CPT/HCPCS: 33208; 71046; 99152; 99153; 99221; J7040; J7050; C1894; G0378

== ENCOUNTER → 2023-10-05 | Outpatient (CLI) | payer MEDICARE, SELFPAY ==
--- NOTE | 2023-10-05 07:17 | MRI_ITS ---
EXAM: MR HEAD WITHOUT AND WITH INTRAVENOUS CONTRAST CLINICAL INDICATION: headache, acute TECHNIQUE: Multiplanar and multisequence MR images of the brain were obtained without and with intravenous contrast. This report was created using [employer] report generation technology. CONTRAST: 16 mL of IV Clariscan. COMPARISON: None. FINDINGS: BRAIN AND EXTRA-AXIAL SPACES: No diffusion restriction to suspect acute or subacute ischemic infarct throughout the brain parenchyma. Old cystic infarct in the right anterior periventricular white matter. Prominent perivascular space in the right globus pallidus. Small T2 FLAIR hyperintensity in the left central pontine tegmentum enhanced with IV contrast. This is most likely old ischemic infarct with breakdown of blood brain barrier. No other abnormal enhancing lesions intra-axially and extra-axially. No intracranial mass or mass effect. Posterior fossa structures are unremarkable. Basal cisterns are patent. SELLA: Unremarkable. Normal sella turcica, pituitary gland, infundibular stalk, optic chiasm and hypothalamus. AUDITORY SYSTEM: Unremarkable. The internal auditory canals are patent. BONES/JOINTS: Unremarkable. No discrete lytic or blastic abnormalities. SINUSES: Unremarkable as visualized. Clear. MASTOID AIR CELLS: Unremarkable as visualized. Clear. ORBITS: Unremarkable as visualized. Both globes, extraocular muscles, optic nerves and retrobulbar fat appear unremarkable. VASCULATURE: Unremarkable as visualized. Normal flow voids in the major intracranial circulation. OTHER FINDINGS: No abnormal magnetic susceptibility foci on the gradient echo sequence, MRI/Brain W/WO Contrast IMPRESSION: 1. No MRI evidence of acute or subacute ischemic infarct or acute intracranial abnormality. 2. Small solitary enhancing T2 FLAIR hyperintensity in the left central pontine tegmentum may represent an old lacunar ischemic infarct with breakdown of blood-brain barrier. 3. 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 4. No MRI evidence of acute or chronic sinusitis. Electronically Signed: Alvino Rodgers MD at 12:02 EST ,
[2023-10-05 07:40] VITALS: BP 146/69; PULSE 78; RESP 18; O2SAT 98
[2023-10-05 07:55] VITALS: BP 128/71; PULSE 85; O2SAT 95
[2023-10-05 07:58] LABS: CREATININE FINGERSTICK 1.3 mg/dL (0.70-1.30)
[2023-10-05 08:10] VITALS: BP 116/75; PULSE 85; O2SAT 95
[2023-10-05 08:25] VITALS: BP 119/77; PULSE 85; O2SAT 93
== END | disposition home or self-care (01) ==
LOC: MRI 07:14
PROVIDERS: PCP Internal Medicine; Referring Provider Internal Medicine; Visit Provider Internal Medicine
DX: R51.9 Headache, unspecified (principal)
CPT/HCPCS: 70553; A9575

== ENCOUNTER 2023-11-16 09:00 | Outpatient (RCR) | payer MEDICARE, SELFPAY ==
--- NOTE | 2023-10-18 09:08 | HP.PTEVAL_ITS ---
Patient's Visit Information Visit Information Visit Information: BERNY INFANTE is a 83 year old M referred to Physical Therapy by Dr. Joelle Stern MD with a diagnosis of UNSTEADY,DDD BACK. Date of Evaluation: 10/18/23 Physical Therapist: Moise Kaminski, PT, Cert MDT, OCS Visit Plan Frequency: 2x /Week Duration: 4 Weeks Plan: PT INTEVETIONS DLS ,HIGH LEVEL BALANCE PROGRAM ,LE FLEXABILITY ,POSTURAL EX'S AND FUNCTIONAL STRENGTHENING Subjective Subjective: This 83 y/o male presents to physical therapy with unsteady gait and back pain. Patient has back pain for many years. Patient pain management and had a ablation which helped. Patient location symmetrical lumbar. Aggravating factors walking ,bending, lifting ,walking and standing most pain. Alleviating factors sitting. Coughing/sneezing-. Bowel/bladder -.Sleeping okay . Patient has by pap. Patient denies paresthesia/tingling -.Patient has a pacemaker may contribute to balance. Patient has no falls and only minor balance problems. Legs don't give way. Patient feels unsteady when getting up in chair . Patient does steps 1 steps at time. Patient fly fish. Patient went last week walking on uneven surfaces so balance is fairly good for age. Patient condition affects QOL. Patient goals improve balance. SOCIAL: VOCATION: retired Pain Bilateral Back: Pain Intensity (Out of 10): 3 Objective Objective: POSTURE: mild forward posture trunk NEURO: intact ,denies paresthesia/tingling FLEXABLITY: hamstrings mod tight GAIT: reciprocal pattern SYMMTRIES: align MMT: quads/hams/hip/ankle 4/5 LUMBAR ROM: flexion mod loss ,extension mod ,side glides mod loss STAIRS: one steps at time Special Tests L/S Slump test left side: Negative L/S Slump test right side: Negative L/S Left Straight Leg Raise: Negative L/S Right Straight Leg Raise: Negative Balance/Special Test Scores Lower Extremity Functional Score: 41 Goals Goal 1:: Patient to be I with HEP for back and balance Goal Time Frame: 4-6 Weeks Goal 2:: Patient to improve LFES score by 5 points or> to improve balance Goal Time Frame: 4-6 Weeks Goal 3:: Patient to improve CATSIB by 5 points to improve QOL and balance Goal Time Frame: 4-6 Weeks Goal 4:: Patient to improve functional gait assessment score by 5 points to improve gait Goal Time Frame: 4-6 Weeks Goal 5:: Patient to improve lumbar ROM for function of recovery to fly fish Goal Time Frame: 4-6 Weeks Rehabilitation Potential Physical Therapy Diagnosis: This patient has minor balance deficits with higher level of activity with tripping on feet , and back pain worse with walking and standing thus benefit from skilled PT Rehabilitation Potential: Good Anticipated Interventions Patient/Client Instruction: Educate patient on: Condition and Plan of Care For the Purpose of:: To decrease pain, To increase ROM, To improve muscle performance and motor function, To improve ability to perform ADL's, To increase tolerance to activity/condition/position, To improve ability of physical actions for home/community/work/leisure, To improve gait and locomotor functions, To increase flexibility/ROM, To improve endurance, To improve balance and To improve health and function Therapeutic Exercise to Include: Strength training, Endurance training, Balance training, Postural training, Flexibilty training and Dynamic Lumbar Stabilization For the Purpose of:: To decrease pain, To improve muscle performance and motor function, To improve ability to perform ADL's, To increase tolerance to activity/condition/position, To improve ability of physical actions for home/community/work/leisure, To improve gait and locomotor functions, To increase flexibility/ROM, To improve endurance, To improve balance and To reduce risk of recurrence Text: Thank you for the opportunity to evaluate your patient. For Medicare and Medicare HMO plans, please review the plan of care and approve it. It will need to be FAXED BACK to us at [phone] for Medicare purposes. For Medicare only, by signing this I certify the plan of care. Please let me know if there are questions or concerns regarding this plan of care. Physician Signature: Date:
--- NOTE | 2023-11-16 09:58 | HP.PTDCSUM ---
Discharge Summary D/C summary: It has been my pleasure to treat BERNY INFANTE referred by Dr. Joelle Stern MD, with the diagnosis of UNSTEADY,DDD BACK for a total of 9 visit(s). Discharge Date: 11/16/23 Please see the following information for a summary of their discharge status. Subjective Subjective: My balance improved Feel more confidence Pain Bilateral Back: Pain Intensity (Out of 10): 0 Overall Improvement % Improvement: 30 Objective Objective/Function: POSTURE: mild forward posture trunk NEURO: intact ,denies paresthesia/tingling FLEXABLITY: hamstrings mod tight GAIT: reciprocal pattern SYMMTRIES: align MMT: quads/hams/hip/ankle 4/5 LUMBAR ROM: flexion mod loss ,extension mod ,side glides mod loss STAIRS: alternating with rail Goals Goal 1:: Patient to be I with HEP for back and balance Goal Progress: Goal Met Goal 2:: Patient to improve LFES score by 5 points or> to improve balance Goal Progress: Goal Met Goal 3:: Patient to improve CATSIB by 5 points to improve QOL and balance Goal Progress: Goal Met Goal 4:: Patient to improve functional gait assessment score by 5 points to improve gait Goal 5:: Patient to improve lumbar ROM for function of recovery to fly fish Plan Plan: D/C D/C Information Discharge Comments: HEP d/c sentence: If there are questions or concerns regarding this patient's physical therapy, please feel free to call me at [phone]. Thank you for the referral of this patient. Sincerely, Moise Kaminski, PT, Cert MDT, OCS Balance/Gait/Functional tests Balance/Special Test Scores Functional Gait Assessment Score: 30 % Disability: 0 CATSIB Score (Max score 120 seconds): 120 Lower Extremity Functional Score: 67 Improvement % Improvement: 30
== END 2023-11-16 17:18 | disposition home or self-care (01) ==
LOC: PT 09:00
PROVIDERS: PCP Internal Medicine; Referring Provider Internal Medicine; Visit Provider Internal Medicine
DX: R26.81 Unsteadiness on feet (principal); M51.36 Other intervertebral disc degeneration, lumbar region
CPT/HCPCS: 97110; 97162; 97530

== ENCOUNTER 2023-12-12 09:58 | Emergency (ER) | payer MEDICARE, SELFPAY ==
[2023-12-12 09:59] VITALS: BP 122/82; PULSE 68; RESP 16; TEMP 36.6; O2SAT 100; BMI 26.0
--- NOTE | 2023-12-12 10:32 | CT_ITS ---
STUDY: CT BRAIN WITHOUT CONTRAST REASON FOR EXAM: Male, 83 years old. Trauma on Eliquis. RADIATION DOSAGE (If Supplied By Facility): CTDIvol = ( 47.06 ) mGy, DLP = ( 890.33 ) mGycm TECHNIQUE: Transaxial CT imaging of the brain was performed without administration of intravenous contrast material. Individualized dose optimization techniques were used for this CT. COMPARISON: No relevant priors. FINDINGS: Normal soft tissue structures. Normal calvarium. There is mild cerebral atrophy with widening of the extra-axial spaces and ventricular dilatation. There are areas of decreased attenuation within the white matter tracts of the supratentorial brain, consistent with microvascular disease changes. Old lacunar infarct in the right basal ganglion. Punctate calcification in the basal ganglia bilaterally. Normal brainstem. Normal cerebellum. There is no intracranial hemorrhage. There are no findings of an acute ischemic infarction. Normal visualized paranasal sinuses. CT/Brain/Head without Contrast IMPRESSION: Chronic involutional changes of the brain. Old lacunar infarct in the right basal ganglia. Electronically Signed: Konstantin Gonsales MD at 11:19 EST ,
--- NOTE | 2023-12-12 10:32 | CT_ITS ---
STUDY: CT THORACIC SPINE WITHOUT CONTRAST REASON FOR EXAM: Male, 83 years old. Trauma RADIATION DOSAGE (If Supplied By Facility): CTDIvol = ( 28.29 ) mGy, DLP = ( 1006.49 ) mGycm TECHNIQUE: The patient was scanned in a multi detector CT scanner. High resolution imaging was performed. Images were obtained from T1 to T12 vertebral level. Sagittal and coronal images were reconstructed. Individualized dose optimization techniques were used for this CT. COMPARISON: None. FINDINGS: Small bilateral pleural effusions with bibasilar infiltration and/or atelectasis. Normal kyphosis of the thoracic spine. There is no substantial scoliosis. There is multilevel endplate spondylosis of the thoracic spine. There is multilevel degenerative disc disease with loss of the disc space heights. Atherosclerotic plaque formation of the descending thoracic aorta. CT/Spine Thoracic without Contras IMPRESSION: Multilevel spondylosis and disc space narrowing. Bilateral pleural effusions with bibasilar atelectasis and/or infiltration. Electronically Signed: Konstantin Gonsales MD at 11:25 EST ,
--- NOTE | 2023-12-12 10:32 | CT_ITS ---
STUDY: CT LUMBAR SPINE WITHOUT CONTRAST REASON FOR EXAM: Male, 83 years old. Trauma RADIATION DOSAGE (If Supplied By Facility): CTDIvol = ( 36.60 ) mGy, DLP = ( 1128.15 ) mGycm TECHNIQUE: The patient was scanned in a multi detector CT scanner. High resolution transaxial imaging was performed. Images were obtained from L1 vertebrae to S1 vertebral level. Sagittal and coronal images were reconstructed. Individualized dose optimization techniques were used for this CT. COMPARISON: None FINDINGS: There are small bilateral pleural effusions with bibasilar infiltration and/or atelectasis. Normal lumbar lordosis. There is no substantial scoliosis. Normal vertebrae of the lumbar spine. L1-2: Mild degree of disc space narrowing. Facet joint osteoarthritis. L2-3: Mild degree of disc space narrowing. Facet joint osteoarthritis and hypertrophy. No significant stenosis is seen. L3-4: Mild degree of disc space narrowing. Facet joint osteoarthritis and hypertrophy. No significant spinal stenosis is seen. L4-5: Mild degree of disc space narrowing. Facet joint osteoarthritis. Hypertrophy. Mild central canal stenosis. Narrowing of the left intervertebral foramen. There is evidence of spondylolysis of the pars interarticularis of the L5 vertebrae. L5-S1: Moderate degenerative disc space narrowing. Spondylosis. Spondylolysis of the pars interarticularis of the L5 vertebrae. There is evidence of degenerative changes of the sacroiliac joints bilaterally. CT/Spine Lumbar without Contrast IMPRESSION: Multilevel degenerative changes, as described above. Electronically Signed: Konstantin Gonsales MD at 11:24 EST ,
--- NOTE | 2023-12-12 10:34 | ED.VIS.FALL ---
HPI HPI - Fall History of Present Illness Chief Complaint: Fall Informant: patient and EMS Narrative Narrative: 83-year-old male presenting to the emergency room chief complaint of fall. Patient arrives by EMS stating that at approximately 0850 hrs. he slipped on the ice in his driveway. States he landed more flat on his back. He did strike his head no loss of consciousness. He notes pain over the T10 region. He has a history of spinal stenosis and was actually on his way to see Dr. Velazquez for his back. He denies any new leg symptoms. No arm symptoms. He is on Eliquis due to atrial flutter. [facility] Medical History Atrial flutter CKD (chronic kidney disease), stage III Depression Dyspnea Fatigue HFrEF (heart failure with reduced ejection fraction) History of hay fever HTN (hypertension) Hyperkalemia, diminished renal excretion Hyperlipidemia Left bundle branch block (LBBB) Left ventricular diastolic dysfunction LVH (left ventricular hypertrophy) Non-ischemic cardiomyopathy Obstructive sleep apnea Prostate cancer Sick sinus syndrome Home Medications folic acid 1 mg tablet 1 mg PO BID supplement 10/11/21 [History Last Taken 12/15/21] vitamin B complex 1 cap PO BID vitamin 10/11/21 [History Last Taken 12/15/21] rosuvastatin 20 mg tablet 20 mg PO DAILY cholesterol 12/16/21 [History Last Taken 12/15/21] zolpidem 12.5 mg tablet,extended release,multiphase 12.5 mg PO QHS sleep 04/04/22 [History Last Taken Unknown] acetaminophen 325 mg tablet (Tylenol) 650 mg (2 x 325 mg) PO Q4H PRN PRN Fever, pain 1-08/29 #0 tabs 12/16/22 [Rx Last Taken Unknown] apixaban 2.5 mg tablet (Eliquis) 2.5 mg PO BID blood thinner 03/23/23 [History Last Taken Unknown] furosemide 40 mg tablet (Lasix) 40 mg PO Q OTHER DAY #45 tabs 08/07/23 [Rx Last Taken Unknown] duloxetine 20 mg capsule,delayed release 30 mg PO BID mental health 09/07/23 [History Last Taken Unknown] Allergy/AdvReac Type Severity Reaction Status Date / Time iodine Allergy Shortness Verified 12/12/23 09:59 of breath Surgical History History of left heart catheterization (12/17/21) History of prostate surgery History of total bilateral knee replacement Hx of appendectomy Social History household members: spouse Smoking Status: Never smoker alcohol intake: current alcohol intake frequency: 0-2 drinks per day Alcohol type: beer, wine and hard liquor details: 1 drink per night substance use type: does not use caffeine: Yes Type: coffee Number of servings: 2 what type of physical activity do you participate in: walking frequency: daily seatbelt use: always ROS ROS ED Constitutional Constitutional ED: Denies chills, fever(s) or weight loss Eyes Eyes: Denies change in vision or diplopia ENT ENT ED: Denies ear pain, rhinorrhea or sore throat Cardiovascular Cardiovascular: Denies chest pain, orthopnea, palpitations or racing heartbeat Respiratory/Chest Respiratory/Chest: Denies cough, dyspnea or orthopnea Gastrointestinal Gastrointestinal: Denies abdominal pain, diarrhea, nausea or vomiting Genitourinary Genitourinary ED: Denies dysuria, hematuria or urinary frequency Musculoskeletal Musculoskeletal: Reports back pain; Denies arthralgias, myalgias or neck pain Integumentary Denies abscess or rash Neurologic Neurologic: Denies headache(s) or weakness Psychiatric Psychiatric: Denies anxiety, depression, suicidal ideation or suicidal thoughts Endocrine Endocrinology: Denies polydipsia, polyphagia or polyuria Allergic/Immunologic Allergic/Immunologic ED: Denies mouth swelling, tongue swelling or urticaria EXAM Physical Exam Const Vital Signs: 12/12/23 09:59 12/12/23 09:59 Temperature 97.9 F Temperature Source Temporal Pulse Rate 68 Respiratory Rate 16 Respiratory Effort Normal Blood Pressure 122/82 H Blood Pressure Mean 95 Pulse Ox 100 Oxygen Delivery Method Room Air Positive well nourished and well developed General Appearance ED: well developed HEENT Reports normocephalic, head/scalp atraumatic and moist mucous membranes Eyes PERRL and EOMs intact bilaterally Neck full ROM, no lymphadenopathy, supple and no JVD General: Negative for tenderness Resp normal respiratory effort and clear to auscultation bilaterally Cardio regular rate, regular rhythm and no murmurs GI normal to inspection, nondistended, normoactive bowel sounds and non-tender Palpation: soft Back/Spine no CVA tenderness Back/Spine Narrative: Patient reports midline and paraspinal tenderness to palpation from about T7-L2. Extremity normal to inspection Extremity Narrative: Achilles and patellar DTR intact bilaterally General Extremety ED: Negative for edema General Extremity: Negative for edema Neuro oriented x3 and CN's II-XII intact bilaterally Marisela Coma Scale: document GCS findings Spontaneous Obeys Commands Oriented 15 Sensorium / Orientation: alert Sensory Exam: No sensory level loss detected Motor Exam: strength 5/5 throughout Psych mental status grossly normal Mood & Affect: Negative for depressed or tearful Skin no rashes or lesions noted and no wounds MDM MDM MDM Narrative Medical decision making narrative: CT the brain demonstrated no fracture or intracranial hemorrhage. CT of the thoracic and lumbar spine does not demonstrate any acute fracture. There was noted to be pleural effusions noted. My independent interpretation of the chest x-ray is no evidence of acute cardiopulmonary process. Chronic changes noted. Patient received 2 Percocet which she states did not really help. He is found a position of comfort laying. He is neurologically intact. Patient was advised that he will most likely have significant muscle soreness for the next week or so. He is encouraged to use heat and rest. Patient is encouraged to return if worsening or any concerns History & Record Review Discussion w/independent historian: Patient and Significant other Radiography Diagnostic Testing: Clinical Impression(s) from Imaging Studies Brain CT 12/12/23 10:32 IMPRESSION: Chronic involutional changes of the brain. Old lacunar infarct in the right basal ganglia. Electronically Signed: Konstantin Gonsales MD at 11:19 EST , Lumbar Spine CT 12/12/23 10:32 IMPRESSION: Multilevel degenerative changes, as described above. Electronically Signed: Konstantin Gonsales MD at 11:24 EST , Thoracic Spine CT 12/12/23 10:32 IMPRESSION: Multilevel spondylosis and disc space narrowing. Bilateral pleural effusions with bibasilar atelectasis and/or infiltration. Electronically Signed: Konstantin Gonsales MD at 11:25 EST , Discharge Plan Triage Chief Complaint: Fall ED Provider: Nigel Cheung Dx/Rx/DC Orders Clinical Impression: Fall, HFrEF (heart failure with reduced ejection fraction), Acute thoracic myofascial strain, Acute lumbar myofascial strain, Head injury, Chronic anticoagulation, Pleural effusion Instructions: ED Thoracic Spine Strain Prescriptions: No Action rosuvastatin 20 mg tablet 20 mg PO DAILY Patient Comments: take 1 tablet by mouth every morning zolpidem 12.5 mg tablet,ext release multiphase 12.5 mg PO QHS Patient Comments: take 1 tablet by mouth at bedtime if needed Eliquis 2.5 mg tablet 2.5 mg PO BID Hold Instructions: Resume on 01/18/23. Patient Comments: take 1 tablet by mouth twice a day folic acid 1 mg Tablet 1 mg PO BID vitamin B complex Capsule 1 cap PO BID acetaminophen [Tylenol] 325 mg Tablet 650 mg PO Q4H PRN PRN (Reason: Fever, pain 1-08/29) Qty: 0 0RF duloxetine 20 mg capsule,delayed release(DR/EC) 30 mg PO BID furosemide [Lasix] 40 mg tablet 40 mg PO Q OTHER DAY Qty: 45 3RF Primary Care Provider: Joelle Stern Referrals: Joelle Stern MD [Primary Care Provider] - 1 Week Disposition Disposition: Home, Self Care
[2023-12-12] MEDS: Oxycodone/Apap 5/325 Tablet PO (10:47)
--- NOTE | 2023-12-12 12:00 | RAD_ITS ---
STUDY: X-RAY CHEST REASON FOR EXAM: Male, 83 years old. Pleural effusion . History of fall. TECHNIQUE: Single AP portable view of the chest. COMPARISON: Comparison is made with prior study dated January 13, 2023. FINDINGS: Early right upper lobe infiltrate. Stable blunting of the left costophrenic angle. There is borderline cardiomegaly. A left-sided dual-chamber pacemaker is seen. Normal mediastinum and sourav. Normal visualized pulmonary arteries. Normal visualized aortic arch and descending thoracic aorta. There are diffuse degenerative changes of the visualized thoracic spine. Normal visualized ribs, clavicles, and shoulders. There is no demonstrated abnormality of the visualized soft tissue structures of the upper abdomen. RAD/Chest 1 View (Portable) IMPRESSION: Early right upper lobe infiltrate. Electronically Signed: Konstantin Gonsales MD at 12:58 EST ,
[2023-12-12 12:53] VITALS: BP 119/64; PULSE 67; RESP 16; O2SAT 99
== END 2023-12-12 12:57 | disposition home or self-care (01) ==
PROVIDERS: Emergency Provider Emergency Medicine; PCP Internal Medicine; Visit Provider Emergency Medicine
DX: S29.019A Strain of muscle and tendon of unspecified wall of thorax, initial encounter (principal); I50.20 Unspecified systolic (congestive) heart failure; I48.92 Unspecified atrial flutter; S39.012A Strain of muscle, fascia and tendon of lower back, initial encounter; S09.90XA Unspecified injury of head, initial encounter; J90 Pleural effusion, not elsewhere classified; G47.33 Obstructive sleep apnea (adult) (pediatric); Z79.01 Long term (current) use of anticoagulants; W00.0XXA Fall on same level due to ice and snow, initial encounter
CPT/HCPCS: 70450; 71045; 72128; 72131; 99282

== ENCOUNTER 2023-12-15 09:08 | Emergency (ER) | payer MEDICARE, SELFPAY ==
[2023-12-15 09:09] VITALS: BP 132/108; PULSE 167; RESP 18; TEMP 37; O2SAT 100; BMI 25.7
--- NOTE | 2023-12-15 09:30 | CT_ITS ---
STUDY: CT ABDOMEN AND PELVIS WITHOUT CONTRAST REASON FOR EXAM: Male, 83 years old. Abdominal pain following recent fall. The patient has a history of prostate cancer. RADIATION DOSAGE (If Supplied By Facility): CTDIvol = ( 12.51 ) mGy, DLP = ( 634.56 ) mGycm TECHNIQUE: Transaxial images were obtained from the dome of the diaphragm to the symphysis pubis without oral contrast, and without intravenous contrast. Sagittal and coronal images were reconstructed. Individualized dose optimization techniques were used for this CT. COMPARISON: None. FINDINGS: Small bilateral pleural effusions slightly more prominent on the right side with bibasilar atelectasis superimposed on chronic scarring and bronchiectasis. Coronary artery calcification. Small pericardial effusion. Dual-chamber pacemaker is seen. Normal liver. Normal gallbladder and extrahepatic biliary system. Normal spleen. Normal pancreas. Normal bilateral adrenal glands. 7.8 mm nonobstructive calculus in the lower pole calyx of the right kidney as well as a 2 mm nonobstructive calculus in the anterior midpole calyx of the right kidney. There is a 2.5 cm cyst in the inferior lateral portion of the left kidney. Nonspecific bilateral perinephric stranding. There is a small hiatal hernia. Normal small intestine. Normal colon. The patient is status post appendectomy. There is scattered atherosclerotic calcification of the abdominal aorta and its major visceral branches., without a demonstrated aneurysm. Normal inferior vena cava. Normal retroperitoneum. Normal urinary bladder. The patient is status post prostatectomy. Mild distention of the urinary bladder. There is a small umbilical hernia containing fat. Mild loss of height of the superior endplate of the T12 vertebrae suggestive of acute compression. No evidence of retropulsion. There is evidence of disc space narrowing and disc degeneration at the L5-S1 level with some spondylosis. Degenerative changes of both sacroiliac joints. CT/Abdomen/Pelvis without Cont IMPRESSION: Mild loss of height of the superior endplate of the T12 vertebrae in keeping with acute compression fracture. No significant retropulsion is seen. Small bilateral pleural effusions worse on the right side with bibasilar atelectasis superimposed on chronic scarring. Small pericardial effusion. Nonobstructive right intrarenal calculi. Left renal cyst. Electronically Signed: Konstantin Gonsales MD at 10:08 EST ,
--- NOTE | 2023-12-15 09:31 | EX.ED.DYSGE1 ---
HPI History of Present Illness Chief Complaint: Flank Pain Informant: patient Narrative Narrative: Patient was seen here earlier this week following a fall. His CT of his lumbar and thoracic spine that was negative for fracture. There was noted pleural effusion and chest x-ray did not demonstrate any large effusion pneumothorax or obvious fracture. He was treated with pain medication and followed up with his doctor the next day. He had his pain medication changed to Burns. He states it really has not been helping. He states he can find a position of comfort after about 10 minutes of laying on his right side or his back. He notes now the pain seems to have spread out laterally on both sides but the right is worse than the left. He wonders if the falls moved a kidney stone that he has had in the right kidney. He denies any urinary symptoms. He notes some constipation for which he took a stool softener. No fevers. No abdominal pain. No breathing difficulties. Triage noted that he had a high heart rate but he has not received any messages on his watch. He does have a history of atrial fibrillation and is on apixaban. He states that he was able to get a hold of Dr. Velazquez from pain management yesterday who he sees. He was prescribed Medrol but is not currently taking any. [facility] Medical History Atrial flutter CKD (chronic kidney disease), stage III Depression Dyspnea Fatigue HFrEF (heart failure with reduced ejection fraction) History of hay fever HTN (hypertension) Hyperkalemia, diminished renal excretion Hyperlipidemia Left bundle branch block (LBBB) Left ventricular diastolic dysfunction LVH (left ventricular hypertrophy) Non-ischemic cardiomyopathy Obstructive sleep apnea Prostate cancer Sick sinus syndrome Home Medications folic acid 1 mg tablet 1 mg PO BID supplement 10/11/21 [History Last Taken 12/15/21] vitamin B complex 1 cap PO BID vitamin 10/11/21 [History Last Taken 12/15/21] rosuvastatin 20 mg tablet 20 mg PO DAILY cholesterol 12/16/21 [History Last Taken 12/15/21] zolpidem 12.5 mg tablet,extended release,multiphase 12.5 mg PO QHS sleep 04/04/22 [History Last Taken Unknown] acetaminophen 325 mg tablet (Tylenol) 650 mg (2 x 325 mg) PO Q4H PRN PRN Fever, pain 1-10/10 #0 tabs 12/16/22 [Rx Last Taken Unknown] apixaban 2.5 mg tablet (Eliquis) 2.5 mg PO BID blood thinner 03/23/23 [History Last Taken Unknown] furosemide 40 mg tablet (Lasix) 40 mg PO Q OTHER DAY #45 tabs 08/07/23 [Rx Last Taken Unknown] baclofen 5 mg tablet 5 mg PO TID PRN muscle spasm 5 days #15 tabs 12/15/23 [Rx Last Taken Unknown] duloxetine 30 mg capsule,delayed release 30 mg PO BID 12/15/23 [History Last Taken Unknown] Allergy/AdvReac Type Severity Reaction Status Date / Time Iodinated Contrast Media Allergy Severe Shortness Verified 12/15/23 09:09 of breath iodine Allergy Shortness Verified 12/15/23 09:08 of breath Surgical History History of left heart catheterization (12/17/21) History of prostate surgery History of total bilateral knee replacement Hx of appendectomy Social History household members: spouse Smoking Status: Never smoker alcohol intake: current alcohol intake frequency: 0-2 drinks per day Alcohol type: beer, wine and hard liquor details: 1 drink per night substance use type: does not use caffeine: Yes Type: coffee Number of servings: 2 what type of physical activity do you participate in: walking frequency: daily seatbelt use: always ROS ROS ED Constitutional Constitutional ED: Denies chills, fever(s) or weight loss Eyes Eyes: Denies change in vision or diplopia ENT ENT ED: Denies ear pain, rhinorrhea or sore throat Cardiovascular Cardiovascular: Denies chest pain, orthopnea, palpitations or racing heartbeat Respiratory/Chest Respiratory/Chest: Denies cough, dyspnea or orthopnea Gastrointestinal Gastrointestinal: Reports constipation; Denies abdominal pain, diarrhea, nausea or vomiting Genitourinary Genitourinary ED: Denies dysuria, hematuria or urinary frequency Musculoskeletal Musculoskeletal: Reports back pain; Denies arthralgias or myalgias Integumentary Denies abscess or rash Neurologic Neurologic: Denies headache(s) or weakness Psychiatric Psychiatric: Denies anxiety, depression, suicidal ideation or suicidal thoughts Endocrine Endocrinology: Denies polydipsia, polyphagia or polyuria Allergic/Immunologic Allergic/Immunologic ED: Denies mouth swelling, tongue swelling or urticaria EXAM Physical Exam Narrative Exam Narrative: Patient appears in pain walking on the hallway. Const Vital Signs: 12/15/23 09:09 12/15/23 13:14 12/15/23 13:17 Temperature 98.6 F 98.1 F Temperature Source Temporal Oral Pulse Rate 167 H 78 Respiratory Rate 18 16 17 Blood Pressure 132/108 H 112/71 Blood Pressure Mean 116 84 Pulse Ox 100 83 90 Oxygen Delivery Method Room Air Nasal Cannula Oxygen Flow Rate (L/min) 2 12/15/23 13:20 Temperature Temperature Source Pulse Rate Respiratory Rate 17 Blood Pressure Blood Pressure Mean Pulse Ox 99 Oxygen Delivery Method Room Air Oxygen Flow Rate (L/min) Positive well nourished and well developed General Appearance ED: well developed HEENT Reports normocephalic, head/scalp atraumatic and moist mucous membranes Eyes PERRL and EOMs intact bilaterally Neck no lymphadenopathy, supple and no JVD Resp normal respiratory effort and clear to auscultation bilaterally Cardio regular rate, regular rhythm and no murmurs GI normal to inspection, nondistended, normoactive bowel sounds and non-tender Palpation: soft Back/Spine no CVA tenderness Back/Spine Narrative: Painful range of motion of the lower thoracic lumbar area. Tender to palpation the paraspinal musculature. No ecchymosis seen. Extremity normal to inspection General Extremety ED: Negative for edema General Extremity: Negative for edema Neuro oriented x3 and CN's II-XII intact bilaterally Sensorium / Orientation: alert Motor Exam: strength 5/5 throughout Psych mental status grossly normal Mood & Affect: Negative for depressed or tearful Skin no rashes or lesions noted and no wounds MDM MDM MDM Narrative Medical decision making narrative: Basic blood work shows a hemoglobin of 14 white count of 8.6. Creatinine 1.80 with a BUN of 35. Glucose 122. Liver lipase normal. Urinalysis does not demonstrate any obvious infection or hematuria. CT of the abdomen pelvis demonstrates no intra-abdominal hemorrhage or retroperitoneal bleed. I do not see any lower rib fractures. On today's view there is definitive compression fracture of T12. I did review the CT of the thoracolumbar spine from 3 days ago. I discussed this with radiology. The T12 compression fracture can certainly contribute to his pain. He most likely also has the thoracolumbar myofascial strain. I am not seeing evidence of neurologic deficits. Patient did feel better with morphine. He sees Dr. Florian for pain management I reached out to him. He is recommending a back brace if we have available to him. He also recommends baclofen 5 mg 3 times a day in addition to his home pain medications. I discussed this with the patient and he notes understanding. We are having difficulty with our vendor finding a back brace for him. If unable to do so I will have him check at [facility]. History & Record Review Discussion w/independent historian: Patient Additional record(s) reviewed:: Prior ED visit Lab Data Attestation: I reviewed the patient's lab results. Labs: Laboratory Results - last 24 hr 12/15/23 12/15/23 09:20 10:44 WBC 8.6 RBC 4.71 Hgb 14.0 Hct 44.4 MCV 94.3 H MCH 29.7 MCHC 31.5 L RDW Std Deviation 46.4 H RDW Coeff of Lane[place] 13.4 Plt Count 200 MPV 11.6 Immature Gran % (Auto) 0.300 Neut % (Auto) 66.3 Lymph % (Auto) 20.0 Bates % (Auto) 9.9 Eos % (Auto) 2.9 Baso % (Auto) 0.6 Absolute Neuts (auto) 5.7 Absolute Lymphs (auto) 1.72 Nucleated RBC % 0 Sodium 137 Potassium 4.0 Chloride 107 Carbon Dioxide 26.0 Anion Gap 4 L BUN 35 H Creatinine 1.80 H Estim Creat Clear Calc 33.12 Est GFR (MDRD) Af Amer 47 L Est GFR (MDRD) Non-Af 38 L BUN/Creatinine Ratio 19.4 Glucose 122 H Calcium 9.3 Total Bilirubin 0.90 Direct Bilirubin 0.25 AST 23 ALT 27 Alkaline Phosphatase 101 Total Protein 7.9 Albumin 3.5 Globulin 4.4 H Lipase 36 Urine Color Yellow Urine Clarity Sl. Cloudy Urine pH 6.0 Ur Specific [place] 1.020 Urine Protein 15 H Urine Glucose (UA) Normal Urine Ketones Negative Urine Occult Blood Negative Urine Nitrite Negative Urine Bilirubin Negative Urine Urobilinogen Normal Ur Leukocyte Esterase Negative Urine RBC 0 SEEN Urine WBC 0 SEEN Ur Squamous Epith Cells 0-5 SEEN Urine Bacteria 0 SEEN Urine Mucus 0 SEEN Radiography Diagnostic Testing: Clinical Impression(s) from Imaging Studies Abdomen/Pelvis CT 12/15/23 09:30 IMPRESSION: Mild loss of height of the superior endplate of the T12 vertebrae in keeping with acute compression fracture. No significant retropulsion is seen. Small bilateral pleural effusions worse on the right side with bibasilar atelectasis superimposed on chronic scarring. Small pericardial effusion. Nonobstructive right intrarenal calculi. Left renal cyst. Electronically Signed: Konstantin Gonsales MD at 10:08 EST , EKG Initial EKG: Attestation: I personally reviewed and interpreted this EKG as follows: Comments: Atrial fibrillation with a ventricular rate of 79 bpm. Noted left bundle branch block. Discharge Plan Triage Chief Complaint: Flank Pain ED Provider: Nigel Cheung Dx/Rx/DC Orders Clinical Impression: T12 compression fracture, Back pain Prescriptions: New baclofen 5 mg tablet 5 mg PO TID PRN (Reason: muscle spasm) 5 Days Qty: 15 0RF No Action rosuvastatin 20 mg tablet 20 mg PO DAILY Patient Comments: take 1 tablet by mouth every morning zolpidem 12.5 mg tablet,ext release multiphase 12.5 mg PO QHS Patient Comments: take 1 tablet by mouth at bedtime if needed Eliquis 2.5 mg tablet 2.5 mg PO BID Hold Instructions: Resume on 01/18/23. Patient Comments: take 1 tablet by mouth twice a day folic acid 1 mg Tablet 1 mg PO BID vitamin B complex Capsule 1 cap PO BID acetaminophen [Tylenol] 325 mg Tablet 650 mg PO Q4H PRN PRN (Reason: Fever, pain 1-08/29) Qty: 0 0RF duloxetine 30 mg capsule,delayed release(DR/EC) 30 mg PO BID furosemide [Lasix] 40 mg tablet 40 mg PO Q OTHER DAY Qty: 45 3RF Primary Care Provider: Joelle Stern Referrals: Driss Florian DO [Non-Staff] - (Appt on Monday to discuss kyphoplasty) Joelle Stern MD [Primary Care Provider] - Activity Restrictions/Additional Instructions: Your case today was discussed with your doctor Dr. Velazquez. They will plan on seeing you in the office on Monday to discuss possible kyphoplasty. His recommendation is that you use some baclofen (muscle relaxer) in combination with the Burns (pain medication) that you are prescribed. He feels the back brace may be very beneficial for you so please use this when up and moving. Please monitor for any difficulties with bowel or bladder control muscle weakness or sensory loss. Disposition Disposition: Home, Self Care
[2023-12-15 09:50] LABS: Absolute Lymphocyte Count 1.72 X10^3/uL (0.83-4.51); Absolute Neutrophil Count 5.7 X10^3/uL (2.0-7.7); Basophil# 0.05 X10^3/uL; Basophil% 0.6 % (0-1); Eosinophil# 0.25 X10^3/uL; Eosinophils% 2.9 % (0-5); Hematocrit 44.4 % (40-54); Lymphocyte # 1.72 X10^3/ul (0.83-4.51); Mean Corp Hgb Conc 31.5 g/dL (32-36); Mean Corpuscular Hgb 29.7 pg (27.0-32.0); Mean Corpuscular Volume 94.3 fL (80-94); Mean Platelet Vol. 11.6 fl (6.2-12.0); Monocyte# 0.85 X10^3/uL; Monocyte% 9.9 % (0-10); NRBC Flagged by Analyzer 0 % (0-5); Neutrophil # 5.71 X10^3/uL (2.7-7.7); Neutrophil % 66.3 % (47-70); Platelet Count 200 K/mm3 (150-450); RBC Distribution Width CV 13.4 % (11.6-14.6); RBC Distribution Width SD 46.4 fl (35.1-43.9); Red Blood Count 4.71 M/mm3 (4.6-6.2); White Blood Count 8.6 K/mm3 (4.4-11.0)
[2023-12-15 10:00] LABS: AST(SGOT) 23 U/L (15-37); Alanine Aminotransfer ALT/SGPT 27 U/L (16-61); Albumin, Serum 3.5 g/dL (3.2-5.0); Alkaline Phosphatase 101 U/L (45-117); Anion Gap 4 (5-15); BUN 35 mg/dL (7-18); BUN/Creat Ratio 19.4 RATIO (10-20); Bilirubin, Direct 0.25 mg/dL (0.00-0.30); Calcium,Total 9.3 mg/dL (8.5-10.1); Chloride 107 mmol/L (98-107); EST Glomerular Filtration Rate 38 mL/min (>60); Est Glom Filt Rate - Afr Amer 47 mL/min (>60); Estimated Creatinine Clearance 33.12 ml/min; Globulin 4.4 g/dL (2.2-4.2); Glucose 122 mg/dL (74-106); Lipase 36 U/L (13-75); Protein, Total 7.9 g/dL (6.4-8.2); Sodium Level 137 mmol/L (136-145)
[2023-12-15] MEDS: Ondansetron 4 MG/2 ML Vial IV (10:03)
[2023-12-15] MEDS: 0.9% Normal Saline (1000mL) 1,000 ML 1000 ML IV (10:03)
[2023-12-15] MEDS: Morphine 4 MG/ML Syringe IV (10:03)
[2023-12-15 10:51] LABS: Bacteria 0 SEEN /hpf (None Seen); Mucous, Urine 0 SEEN /hpf (<or=2+); Red Blood Cells-Urine 0 SEEN /hpf (0-5); White Blood Cells 0 SEEN /hpf (0-5)
[2023-12-15 11:05] LABS: Color, Urine Yellow (Yellow); Glucose, Dipstick Normal (Normal); Ketone-Dipstick Negative (Negative); Leukocyte Esterase-Dipstick Negative /ul (Negative); Nitrite-Dipstick Negative (Negative); Occult Blood-Urine Negative /ul (Negative); Protein-Dipstick 15 mg/dl (Negative); Urine Bilirubin Dipstick Negative (Negative); Urine Clarity Sl. Cloudy (Clear); Urine Urobilinogen Normal (Normal)
[2023-12-15 11:16] LABS: Squamous Epithelial Cells - UA 0-5 SEEN /hpf (0-5)
[2023-12-15 13:14] VITALS: BP 112/71; PULSE 78; RESP 16; TEMP 36.7; O2SAT 83
[2023-12-15 13:17] VITALS: RESP 17; O2SAT 90
[2023-12-15 13:20] VITALS: RESP 17; O2SAT 99
[2023-12-15 14:52] VITALS: BP 102/52; PULSE 78; RESP 16; TEMP 36.6
== END 2023-12-15 14:52 | disposition home or self-care (01) ==
PROVIDERS: Emergency Provider Emergency Medicine; PCP Internal Medicine; Visit Provider Emergency Medicine
DX: S22.080A Wedge compression fracture of T11-T12 vertebra, initial encounter for closed fracture (principal); I50.20 Unspecified systolic (congestive) heart failure; I48.91 Unspecified atrial fibrillation; N18.30 Chronic kidney disease, stage 3 unspecified; G47.33 Obstructive sleep apnea (adult) (pediatric); Z79.01 Long term (current) use of anticoagulants; W19.XXXA Unspecified fall, initial encounter
CPT/HCPCS: 74176; 80048; 80076; 81001; 83690; 85025; 93005; 96361; 96374; 96375; 99284; J7030; A4216; J2405

== ENCOUNTER 2023-12-23 03:34 | Inpatient (IN) | payer MEDICARE, SELFPAY ==
[2023-12-23] VITALS (8 sets, daily range): BP systolic 113–133; BP diastolic 78–99; PULSE 76–92; RESP 15–20; TEMP 35.9–37.1; O2SAT 94–99; BMI 26.0; BMI 25.2
--- NOTE | 2023-12-23 04:06 | CT_ITS ---
EXAM: CT HEAD WITHOUT INTRAVENOUS CONTRAST CLINICAL INDICATION: altered mental status TECHNIQUE: Multiple axial images were obtained of the head without intravenous contrast. This CT exam was performed using one or more of the following dose reduction techniques: automated exposure control, adjustment of the mA and/or kV according to patient size, and/or use of iterative reconstruction technique. RADIATION DOSE: CTDIvol = 44.99 mGy, DLP = 829.85 mGy-cm COMPARISON: Head CT 12/12/2023 FINDINGS: BRAIN AND EXTRA-AXIAL SPACES: Diffuse cerebral volume loss. Periventricular small vessel ischemic changes. Chronic right basal ganglia infarct. No intra- or extra-axial hemorrhage. No intracranial mass or mass effect. Posterior fossa structures are unremarkable. No hydrocephalus. Basal cisterns are patent. BONES/JOINTS: Unremarkable. No discrete lytic or blastic abnormalities. VASCULATURE: Vascular calcifications. SINUSES: Unremarkable as visualized. Clear. MASTOID AIR CELLS: Unremarkable. Clear. ORBITS: Visualized globes, extraocular muscles, optic nerves and retrobulbar fat appear unremarkable. CT/Brain/Head without Contrast IMPRESSION: 1. No acute intracranial abnormalities. 2. Age-related changes. Electronically Signed: Vidal Marie MD at 4:53 EST ,
--- NOTE | 2023-12-23 04:15 | RAD_ITS ---
EXAM: XR CHEST, 1 VIEW CLINICAL INDICATION: ams TECHNIQUE: Frontal view of the chest. COMPARISON: Single view chest 12/12/2023 FINDINGS: LUNGS AND PLEURAL SPACES: Unremarkable. No consolidation or edema. No pneumothorax. No effusion. HEART: Mild enlargement of the cardiac silhouette. MEDIASTINUM: Central airways and mediastinal contour are unremarkable. BONES/JOINTS: Unremarkable. No acute fracture. SOFT TISSUES: Unremarkable. TUBES, LINES AND DEVICES: Left chest pacer. RAD/Chest 1 View (Portable) IMPRESSION: No acute findings in the chest. Electronically Signed: Vidal Marie MD at 4:53 EST ,
--- OUTSIDE RECORDS SUMMARY | 2023-12-23 04:16 | XMS RPT_ITS | CCD ---
Author Name Unknown Address [address] [place] [address] Organization [facility] Care Team Providers Care Ukrainian Folk Arts Instructor Name Role Phone Adrienne Durham PA-C Unavailable Abigail PINTO, Vic Scott Unavailable Joelle Stern MD Unavailable Ronaldo GALLON, YOLANDA Unavailable Unavailable Unavailable Unavailable Mirella PINTO, Damion Madrid Unavailable Mario NAVAS, Rosalino Unavailable Unavailable Rosaline Long MA Unavailable Unavailable Joelle Stern MD Unavailable Slakg GALLON, Tonja Unavailable Unavailable Adryan HOWE, Devorah Unavailable Unavailable Joelle Stern MD Primary Care Provider Sophie GALLON, Cass Unavailable Unavailable Irina HOWE, Kayela Unavailable Unavailable KEE LAL Unavailable oJelle Stern MD Attending Unavailable Joelle Stern MD Referring Unavailable Joelle Stern MD Consulting Unavailable Joelle Stern MD Primary Care Provider [phone] Angeli Vidal MA Unavailable Unavailable Allergies Allergy Classification Reported Allergen(s) Allergy Type Date of Onset Reaction(s) Facility (4 sources) Iodine Strong drug allergy 7 IVP dye [facility] Work Phone: (20 sources) Iodinated Contrast; Translations: [Iodinated Contrast] Allergy to substance (finding) Shortness of breath [facility] Work Phone: Medications Current Medications Medication Drug Class(es) Dates Sig (Normalized) Sig (Original) rosuvastatin calcium 20 mg oral tablet (20 sources) HMG-CoA Reductase Inhibitor Start: 10-31-2023 take 1 tablet by mouth in the morning rosuvastatin 20 mg oral tablet 1 (one) Tablet in am for 90 days Quantity: 90 {Tablet} Refills: 3 Ordered: 19-Sep-2023 Joelle Stern MD, MD, Dana M Start : 19-Sep-2023 Active Completed/Discontinued Medications Medication Drug Class(es) Dates Sig (Normalized) Sig (Original) allopurinol 300 mg oral tablet (20 sources) Xanthine Oxidase Inhibitor Start: 06-04-2013 End: 07-28-2021 take 1 tablet by mouth once daily Allopurinol 300 MG Oral Tablet 1 tab qd for 0 days Refills: 0 Ordered: 28-Jul-2021 Attila CARBURIZING FURNACE OPERATORPippa Start : 04-Jun-2013 End : 28-Jul-2021 Inactive apixaban 2.5 mg oral tablet (12 sources) Factor Xa Inhibitor Start: 05-24-2023 take 1 tablet by mouth every twelve hours Eliquis 2.5 mg oral tablet 1 Tablet every 12 hours for 90 days Quantity: 180 {Tablet} Refills: 2 Ordered: 24-May-2023 Joelle Stern MD, MD, Dana M Start : 24-May-2023 Active Problems Active Problems Problem Classification Problem Date Documented Da te Episodic/Chronic Abdominal hernia (20 sources) Umbilical hernia; Translations: [Umbilical hernia] Onset: 02-26-2014 10-13-2021 Episodic Abdominal pain (20 sources) Right lower quadrant pain; Translations: [Abdominal pain, acute, right lower quadrant] Resolved: 07-28-2021 07-28-2021 Episodic Past or Other Problems Problem Classification Problem Date Documented Date Episodic/Chronic Conditions associated with dizziness or vertigo (2 sources) Conditions associated with dizziness or vertigo Neoplasms of unspecified nature or uncertain behavior (4 sources) Neoplasm of skin; Translations: [Neoplasm of uncertain behavior of skin] Onset: 10-31-2011 10-31-2011 Episodic Other and unspecified benign neoplasm (4 sources) Hemangioma of skin; Translations: [Hemangioma of skin and subcutaneous tissue] Onset: 10-31-2011 10-31-2011 Episodic Other and unspecified benign neoplasm (3 sources) Benign neoplasm of colon; Translations: [Benign neoplasm of colon, unspecified] Onset: 11-06-2007 11-06-2007 Episodic Other connective tissue disease (4 sources) Other affections of shoulder region, not elsewhere classified; Translations: [Other affections of shoulder region, not elsewhere classified] Onset: 07-08-2015 07-13-2015 Episodic Other inflammatory condition of skin (1 source) Sebaceous hyperplasia; Translations: [Follicular disorder, unspecified] Onset: 10-31-2011 10-31-2011 Episodic Other inflammatory condition of skin (3 sources) Seborrheic dermatitis; Translations: [Seborrheic dermatitis, unspecified] Onset: 11-27-2008 11-27-2008 Episodic Other non-traumatic joint disorders (4 sources) Pain in left shoulder; Translations: [Pain in left shoulder] Onset: 07-08-2015 07-08-2015 Episodic Other nutritional; endocrine; and metabolic disorders (3 sources) Hyperuricemia; Translations: [Hyperuricemia without signs of inflammatory arthritis and tophaceous disease] Onset: 07-19-2005 10-07-2019 Episodic Other skin disorders (11 sources) Senile hyperkeratosis; Translations: [Sebaceous hyperplasia] Onset: 10-31-2011 11-17-2011 Episodic Sprains and strains (7 sources) Sprain of unspecified rotator cuff capsule, initial encounter; Translations: [Low back strain] Onset: 07-08-2015 07-13-2015 Episodic Unclassified (20 sources) Abdominal pain, acute, right lower quadrant Unclassified (20 sources) Abdominal pain, acute, right upper quadrant Unclassified (20 sources) Bilateral nephrolithiasis Unclassified (20 sources) Abdominal Pain,RUQ(789.01) Unclassified (20 sources) Depression/Anxiety (300.4) Unclassified (20 sources) Abdominal Pain,RLQ (789.03) Unclassified (20 sources) Kidney stones (592.0) Unclassified (20 sources) GARCÍA (dyspnea on exertion) Unclassified (20 sources) BMI 26.0-26.9,adult Unclassified (14 sources) Lightheaded Results Test Name Value Interpretation Reference Range Facil ity Vital Signs Date Time Vital Sign Value Performing Clinician Facility 09-15-2023 15:23-0400 Body height 179.07 cm Joelle Stern MD Work Phone: [facility] Work Phone: 09-15-2023 15:23-0400 Body mass index (BMI) [Ratio] 26.19 kg/m2 Joelle Stern MD Work Phone: [facility] Work Phone: 09-15-2023 15:23-0400 Body surface area Derived from formula 2.03 m2 Joelle Stern MD Work Phone: [facility] Work Phone: 09-15-2023 15:23-0400 Body temperature 96.7 [degF] Joelle Stern MD Work Phone: [facility] Work Phone: Encounters Encounter Date Encounter Type Care Provider Facility Start: 09-15-2023 End: 09-15-2023 Office outpatient visit 25 minutes Joelle Stern MD Work Phone: [facility] Start: 08-08-2023 End: 08-08-2023 Office outpatient visit 25 minutes Joelle Stern MD Work Phone: [facility] Start: 08-08-2023 End: 08-08-2023 Patient encounter status Joelle Stern MD Work Phone: [facility] Work Phone: Procedures Date Procedure Procedure Detail Performing Clinician Start: 09-07-2023 End: 09-07-2023 Cardiology Visit Report Procedure Note: See Note; NOTES: [facility] [address] [place] [address] OFFICE VISIT Date of Service: 09/07/23 MR#: [id number] Acct: [id number] Name: BERNY INFANTEMOND Rep #: [id number] : 1940 Provider: Dr. Damion Vu MD Age/Sex: 83/M [place] [facility] [place]: Signed HPI [facility] History of Present Illness Details: This is a pleasant 83-year-old man who presents to the office today for a cardiovascular follow up. He had presented with presyncope, noted to have pauses and underwent a permanent pacemaker implantation. He had previously asked to member undergone a cardiac catheterization on December 17, 2021 which demonstrated minimal coronary artery disease. His most recent echocardiogram during this admission demonstrated an ejection fraction of approximately 50%. He denies chest, arm, jaw, or neck discomfort. He states shortness of breath with activity such as stairs. He denies symptoms of shortness of breath at rest, orthopnea, PND, sudden weight gain, or bilateral lower extremity edema. He denies chronic cough. He denies palpitations, dizziness, near syncope, or syncopal episodes. He denies claudication issues. He states lightheadedness, most notably with position changes. He denies fever or chills. He denies blood in urine, blood in stool, or epistaxis. He denies myalgia. He denies unexplainable fatigue. His exercise tolerance is stable. 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 Imaging Required: No Accompanied by: Self Is patient in pain?: No Allergies iodine Allergy (Verified 09/07/23 12:21) Shortness of breath Medications folic acid 1 mg tablet 1 mg PO BID supplement 10/11/21 [History Confirmed 09/07/23] vitamin B complex 1 cap PO BID vitamin 10/11/21 [History Confirmed 09/07/23] rosuvastatin 20 mg tablet 20 mg PO DAILY cholesterol 12/16/21 [History Confirmed 09/07/23] zolpidem 12.5 mg tablet,extended release,multiphase 12.5 mg PO QHS sleep 04/04/22 [History Confirmed 09/07/23] acetaminophen 325 mg tablet (Tylenol) 650 mg (2 x 325 mg) PO Q4H PRN PRN Fever, pain 1-08/29 #0 tabs 12/16/22 [Rx Confirmed 09/07/23] apixaban 2.5 mg tablet (Eliquis) 2.5 mg PO BID blood thinner 03/23/23 [History Confirmed 09/07/23] furosemide 40 mg tablet (Lasix) 40 mg PO Q OTHER DAY #45 tabs 08/07/23 [Rx Confirmed 09/07/23] duloxetine 20 mg capsule,delayed release 30 mg PO BID mental health 09/07/23 [History Confirmed 09/07/23] Ejection fraction %: 50 to 54 [facility] Medical History Atrial flutter CKD (chronic kidney disease), stage III Depression Dyspnea Fatigue HFrEF (heart failure with reduced ejection fraction) History of hay fever HTN (hypertension) Hyperkalemia, diminished renal excretion Hyperlipidemia Left bundle branch block (LBBB) Left ventricular diastolic dysfunction LVH (left ventricular hypertrophy) Non-ischemic cardiomyopathy Obstructive sleep apnea Prostate cancer Sick sinus syndrome Surgical History History of left heart catheterization (12/17/21) History of prostate surgery History of total bilateral knee replacement Hx of appendectomy Social History household members: spouse Smoking Status: Never smoker alcohol intake: current alcohol intake frequency: 0-2 drinks per day Alcohol type: beer, wine and hard liquor details: 1 drink per night substance use type: does not use caffeine: Yes Type: coffee Number of servings: 2 what type of physical activity do you participate in: walking frequency: daily seatbelt use: always ROS Const Const: Negative for fatigue, weakness, headache(s), daytime sleepiness or difficulty sleeping Eyes Eyes: Negative for change in vision ENT ENT: Negative for headache(s), dizziness or Nosebleed/epistaxis Cardio Chest Pain: No Palpitations: No Edema: None Resp Respiratory: Positive for SOB with activity; Negative for SOB at rest, SOB orthopnea SOB lying down or Cough GI GI: Negative nausea, vomiting or heartburn Neuro Neuro: Negative for dizziness, lightheadedness, near syncope, headache(s) or weakness Endo Endo: Negative for fatigue Cardiology Exam Const Appearance: cooperative, healthy appearing, no acute distress, well developed and well groomed Nutritional Appearance: average body habitus and well nourished Orientation: alert, awake and oriented x3 Head Head: normal to inspection, normocephalic and atraumatic Ears: hearing grossly normal bilaterally and external ears normal Nose: external nose normal, nares normal, nasal mucous membranes and turbinates normal, septum normal and no nasal discharge Face and Sinus: face symmetric Mouth: oral mucosae normal, tongue normal, oropharynx normal and moist mucous membranes Teeth and gingiva: dentition normal Throat: posterior oropharynx normal, tonsils normal and uvula midline Eyes General: appearance normal, both eyes and all related structures Eyelids: eyelids normal Conjunctivae: conjunctivae normal Pupils: PERRL, normal by confrontation and accommodation normal EOM: EOM intact bilaterally Neck Neck: normal visual inspection, trachea midline and no JVD JVD: +5 Carotids: normal carotid upstroke and bounding pulses Chest Chest inspection: normal inspection of the chest, symmetric chest movement and normal respiratory effort Auscultation: Bilateral: Rales Cardio Palpation: normal PMI Rate: regular rate Rhythm: regular rhythm Heart sounds: S1 normal, S2 normal and normal, physiologic split S2; Negative rub, gallop or murmur GI GI: normal to inspection, soft, no hepatosplenomegaly and bowel sounds present Neuro General: patient alert, patient awake, patient oriented x3, gait normal, moves all extremities and no focal sensory deficit Skin Skin: no rashes or lesions noted Extremities Pulses: Normal: Right Femoral Pulse, Left Femoral Pulse, Right Dorsalis Pedis Pulse, Left Dorsalis Pedis Pulse, Right Posterior Tibial Pulse, Left Posterior Tibial Pulse, Right Radial Pulse and Left Radial Pulse Lower Extremity Edema: None: Bilateral Musculoskel Musculoskeletal: No joint tenderness Psych Psychological: normal affect Supplemental Info Supplemental Information Echocardiogram 12/15/22: Interpretation Summary Mild global left ventricular systolic dysfunction. The estimated ejection fraction is 50 %. Septal motion consistent with IVCD. Severe concentric left ventricular hypertrophy. Apical false tendon noted. The left atrium is mildly enlarged. Mild diffuse mitral valve thickening. Moderate (2+) mitral valve insufficiency. Mild diffuse thickening of the tricuspid valve. Mild tricuspid valve insufficiency. Mild focal aortic valve calcification. Trivial aortic valve insufficiency. Right ventricular systolic pressure estimated to be 23 mmHg. Diastolic function is indeterminate. Echocardiogram from 04/12/2022: Interpretation Summary Normal LV size. The estimated ejection fraction is 35 %. Moderate concentric left ventricular hypertrophy. There is moderate global hypokinesis of the left ventricle. Mild (1+) eccentric mitral valve insufficiency. Trivial aortic valve insufficiency. Small pericardial effusion. Compared to previous study, the left ventricular systolic function is the same. ECHOCARDIOGRAM 12/13/2021 Interpretation Summary Normal LV size. Moderate concentric left ventricular hypertrophy. The estimated ejection fraction is 35 %. There is moderate to severe global hypokinesis of the left ventricle. Small pericardial effusion. Mild (1+) eccentric mitral valve insufficiency. Stage 3 diastolic dysfunction. Pulmonary artery systolic pressure is 34 mmHg. Holter monitor from 12/16/2022: Atrial fibrillation Minimum heart rate 40 bpm. Average heart rate 83 bpm. Maximal heart 133 bpm. Ventricular ectopy 0.4%. Supraventricular ectopy 0.0%. Longest R to R interval 4.2 seconds seconds. Atrial fibrillation 99.6%. No ventricular tachycardia. The patient kept a 24-hour diary and noted dizziness with which occasionally correlated with ectopy. Cardiac Catheterization 12/17/2021: PROCEDURE(S) PERFORMED [id number]-([id number])[facility] CLINICAL PROFILE AND INDICATIONS Indications: Suspected CAD Heart Failure: NYHA Class: 3 Stress/Imaging Date: CAD Presentations: Symptom unlikely to be ischemic. CONCLUSIONS Non obstructive coronary arteries Cardiomyopathy: Dilated Cardiomyopathy: Congestive CORONARY ANGIOGRAPHY DOMINANCE: Right Dominant LEFT HEART ASSESSMENT Left Ventricular Ejection Fraction: by Echo 35 % Global Hypokinesis - Moderate Depressed Left Ventricular systolic function LEFT MAIN: Angiographically normal LEFT ANTERIOR DESCENDING ARTERY: No significant disease noted CIRCUMFLEX ARTERY: No significant disease noted RIGHT CORONARY ARTERY: No significant disease noted Stress Test Report 09/13/2021 Conclusion: Mild to moderate cardiomyopathy. No evidence of ischemia noted at a moderate workload. Labs: No Data to Display Diagnostics: Electrocardiogram Pacemaker Check Pacemaker Procedure Note Chest X-Ray Pulmonary: No Data to Display Past Visits: Cardiology Visit 09/07/23 Assessment and Plan Assessment and Plan (1) Pacemaker: Status: Acute Comment: DPPM implant 01/09/23 Plan: He is status post permanent pacemaker implantation. His pacemaker interrogation has demonstrated normal pacemaker function. An appropriate battery longevity. He however has noted mild shortness of breath and I would recommend that we start him back on his Lasix at 40 mg 3 times a week. His lisinopril can be discontinued. (2) Non-ischemic cardiomyopathy: Status: Chronic Plan: He does have mild nonischemic cardiomyopathy with an estimated ejection fraction of 50%. He however has noted mild shortness of breath and I would recommend that we start him back on his Lasix at 40 mg 3 times a week. His lisinopril can be discontinued. He has been having some dizziness with this. 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 [place] [address] OFFICE VISIT Date of Service: 03/27/23 MR#: [id number] Acct: [id number] Name: BERNY INFANTE Rep #: [id number] : 1940 Provider: Dr. Yandel Kaminski MD Age/Sex: 83/M [place] [facility] [place] Status: Signed Assessment and Plan Assessment and Plan (1) Obstructive sleep apnea: Status: Chronic (2) Sick sinus syndrome: Status: Acute (3) LVH (left ventricular hypertrophy): Status: Chronic Plan Patient appears to be doing well from an MIKY standpoint. There is no indication for a titration study at this time. Did discuss the role of weight loss and the overall disease plan of care. Also discussed the interaction of LVH, A-fib and control of sleep apnea to avoid future complications. Patient voiced understanding. Given stability, will continue with 1 year follow-ups. Patient was educated on reasons to call in the interim. Continue current therapy. Plan Details Follow Up: 1 Year (MARTHA) HPI 6 M FU Details: Patient is an 83-year-old male, currently under the care of Dr. Stern who presents for evaluation secondary to obstructive sleep apnea. Since last visit, patient denies any prednisone burst. Patient has had an extensive medical history since his last visit. Patient states he was admitted to the hospital in late November secondary to syncopal episodes and was found to have severe concentric LVH. This was complicated by A-fib with RVR and patient ultimately had a pacemaker placed. Patient has been doing well from an MIKY standpoint. Patient currently uses a nasal interface. Patient denies any pain at the interface site, epistaxis or hoarseness. Patient denies any morning headache. Patient reports mild dry mouth in the morning. Patient wakes up feeling refreshed and takes naps rarely. Patient does not typically use their Pap machine with these naps. Patient has no respiratory complaints at this time. Patient has not had any change in exercise tolerance. Patient is not reporting any nocturnal cough. Patient has no constitutional symptoms such as fever, chills, nausea or vomiting. No lower extremity edema has been reported. Review of systems otherwise negative from a constitutional, HEENT, respiratory, cardiovascular, GI, genitourinary, musculoskeletal, skin, neurologic, psychiatric and hematologic system unless stated above. Documentation personally reviewed with the patient Compliance report (February 2023): Compliant 83% of the time for an average of 5 hours 9 minutes on BiPAP 19/15 cmH2O with a residual AHI of 0.1 and fairly controlled leak. Echocardiogram (12/15/2022): Severe concentric LVH with an EF of 50% and an estimated right ventricular systolic pressure of 23 mmHg. There was some mild to moderate valvular abnormalities also noted. 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: No DME Vendor: [employer]-- Debbie Accompanied by: Self Is patient in pain?: No Allergies iodine Allergy (Verified 03/27/23 11:12) Shortness of breath Medications folic acid 1 mg tablet 1 mg PO BID supplement 10/11/21 [History Confirmed 03/27/23] vitamin B complex 1 cap PO BID vitamin 10/11/21 [History Confirmed 03/27/23] rosuvastatin 20 mg tablet 20 mg PO DAILY cholesterol 12/16/21 [History Confirmed 03/27/23] zolpidem 12.5 mg tablet,extended release,multiphase 12.5 mg PO QHS sleep 04/04/22 [History Confirmed 03/27/23] duloxetine 20 mg capsule,delayed release 20 mg PO DAILY mental health 12/14/22 [History Confirmed 03/27/23] acetaminophen 325 mg tablet (Tylenol) 650 mg PO Q4H PRN PRN Fever, pain 1-08/29 #0 tabs 12/16/22 [Rx Confirmed 03/27/23] apixaban 2.5 mg tablet (Eliquis) 2.5 mg PO BID blood thinner 03/23/23 [History Confirmed 03/27/23] furosemide 40 mg tablet (Lasix) 40 mg PO Q OTHER DAY #60 tabs 03/23/23 [Rx Confirmed 03/27/23] PFSH Medical History Atrial flutter CKD (chronic kidney disease), stage III Depression Dyspnea Fatigue HFrEF (heart failure with reduced ejection fraction) History of hay fever HTN (hypertension) Hyperkalemia, diminished renal excretion Hyperlipidemia Left bundle branch block (LBBB) Left ventricular diastolic dysfunction LVH (left ventricular hypertrophy) Non-ischemic cardiomyopathy Obstructive sleep apnea Prostate cancer Sick sinus syndrome Surgical History History of left heart catheterization (12/17/21) History of prostate surgery History of total bilateral knee replacement Hx of appendectomy Social History (Updated 03/27/23 @ 11:18 by Zarina Hoffman) household members: spouse Smoking Status: Never smoker alcohol intake: current alcohol intake frequency: 0-2 drinks per day Alcohol type: beer, wine and hard liquor details: 1 drink per night substance use type: does not use caffeine: Yes Type: coffee Number of servings: 2 what type of physical activity do you participate in: walking frequency: daily seatbelt use: always Exam Const Constitutional: Positive conversant, cooperative, in no acute respiratory distress, healthy appearing, well developed, well nourished and good hygiene Eyes Eye: Positive clear conjunctiva; Negative scleral abnormality Ears Ear: Positive hard of hearing and external ears normal Nose Nose: Yes external nose normal Mouth Mouth: Positive oral mucosae normal Neck Neck: Positive normal visual inspection, full ROM and trachea midline Chest Wall Chest: Positive normal inspection of the chest and symmetric chest movement; Negative increased A/P diameter Pacemaker noted Resp lung sounds: Positive clear to auscultation, good air exchange, normal expiratory time and normal respiratory effort; Negative wheezes, rhonchi or rales Cardio Cardiac: Positive regular rate, regular rhythm, S1 normal, S2 normal and normal PMI; Negative murmur GI GI: Positive normal to inspection; Negative distended Genitourinary: Positive deferred Musc Musculoskeletal: Positive steady gait and ROM normal; Negative kyphosis or scoliosis Skin Pulmonary Skin Exam: Positive intact; Negative lesion, rash or ulcers Pulses Pulse: Yes radial pulses present Extremities Extremities: Yes capillary refill normal, No clubbing, No cyanosis and No edema Neuro Neurologic: Yes no focal neuro deficits, Yes conversant, Yes cooperative, Yes normal cognition, Yes normal coordination, Yes normal concentration and Yes understands questions Psych Appearance: Positive grossly normal, eye contact and well kempt Mental Status: Positive mental status grossly normal Mood: Positive congruent mood Affect: Positive normal affect Coding Level of Care Code Off vis,est,level 3 Diagnoses Obstructive sleep apnea G47.33 Sick sinus syndrome I49.5 LVH (left ventricular hypertrophy) I51.7 03/27/23 1419 <Electronically signed by Yandel Kaminski MD> Date Yandel Kaminski MD Cosigner Signature: Date (if applicable) CC: MD Joelle Segura MD Work Phone: Start: 03-23-2023 End: 03-23-2023 Cardiology Visit Report Procedure Note: See Note; NOTES: [facility] [address] [place] [address] OFFICE VISIT Date of Service: 03/23/23 MR#: [id number] Acct: [id number] Name: BERNY INFANTE Rep #: [id number] : 1940 Provider: Dr. Damion Vu MD Age/Sex: 83/M [place] [facility] Status: Signed HPI HPI History of Present Illness Details: This is a pleasant 83-year-old man who presents to the office today for a cardiovascular follow up. He had presented with presyncope, noted to have pauses and underwent a permanent pacemaker implantation. He had previously asked to member undergone a cardiac catheterization on December 17, 2021 which demonstrated minimal coronary artery disease. His most recent echocardiogram during this admission demonstrated an ejection fraction of approximately 50%. He denies chest, arm, jaw, or neck discomfort. He states shortness of breath with activity such as stairs. He denies symptoms of shortness of breath at rest, orthopnea, PND, sudden weight gain, or bilateral lower extremity edema. He denies chronic cough. He denies palpitations, dizziness, near syncope, or syncopal episodes. He denies claudication issues. He states lightheadedness, most notably with position changes. He denies fever or chills. He denies blood in urine, blood in stool, or epistaxis. He denies myalgia. He denies unexplainable fatigue. His exercise tolerance is stable. 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 Imaging Required: No Accompanied by: Is patient in pain?: No Allergies iodine Allergy (Verified 03/23/23 13:33) Shortness of breath Medications folic acid 1 mg tablet 1 mg PO BID supplement 10/11/21 [History Confirmed 03/23/23] vitamin B complex 1 cap PO BID vitamin 10/11/21 [History Confirmed 03/23/23] rosuvastatin 20 mg tablet 20 mg PO DAILY cholesterol 12/16/21 [History Confirmed 03/23/23] zolpidem 12.5 mg tablet,extended release,multiphase 12.5 mg PO QHS sleep 04/04/22 [History Confirmed 03/23/23] duloxetine 20 mg capsule,delayed release 20 mg PO DAILY mental health 12/14/22 [History Confirmed 03/23/23] acetaminophen 325 mg tablet (Tylenol) 650 mg PO Q4H PRN PRN Fever, pain 1-08/29 #0 tabs 12/16/22 [Rx Confirmed 03/23/23] apixaban 2.5 mg tablet (Eliquis) 2.5 mg PO BID blood thinner 03/23/23 [History Confirmed 03/23/23] furosemide 40 mg tablet (Lasix) 40 mg PO Q OTHER DAY #60 tabs 03/23/23 [Rx Confirmed 03/23/23] Ejection fraction %: 50 to 54 PFSH Medical History Atrial flutter CKD (chronic kidney disease), stage III Depression Dyspnea Fatigue HFrEF (heart failure with reduced ejection fraction) History of hay fever HTN (hypertension) Hyperkalemia, diminished renal excretion Hyperlipidemia Left bundle branch block (LBBB) Left ventricular diastolic dysfunction LVH (left ventricular hypertrophy) Non-ischemic cardiomyopathy Obstructive sleep apnea Prostate cancer Sick sinus syndrome Surgical History History of left heart catheterization (12/17/21) History of prostate surgery History of total bilateral knee replacement Hx of appendectomy Social History household members: spouse Smoking Status: Never smoker alcohol intake: current alcohol intake frequency: 0-2 drinks per day Alcohol type: beer, wine and hard liquor details: 1 drink per night substance use type: does not use caffeine: Yes Type: coffee Number of servings: 2 ROS Const Const: Positive for fatigue; Negative for weakness, headache(s), frequent falls, difficulty sleeping or excessive sweating Eyes Eyes: Negative for loss of peripheral vision, transient loss of vision, blurry vision, double vision or tunnel vision ENT ENT: Positive for dizziness; Negative for headache(s), Nosebleed/epistaxis or balance problems Cardio Chest Pain: No Palpitations: No Edema: None Muscle aches with walking: None Resp Respiratory: Positive for SOB with activity; Negative for SOB at rest, SOB orthopnea SOB lying down, Cough or paroxysmal nocturnal dyspnea GI GI: Negative nausea, vomiting or heartburn : Negative for hematuria Musc Musc: Negative for muscle aches/ myalgia, muscle weakness, joint pain or balance problems Skin Skin: Negative non-healing lesions, rash or unusual bruising Neuro Neuro: Positive for dizziness; Negative for lightheadedness, near syncope, syncope, orthostatic symptoms, frequent falls, headache(s), weakness, confusion, memory loss, blurry vision, double vision, vertigo or lack of coor dination Billy Hematologic/Lymphatic: Negative for easy bleeding or easy bruising Endo Endo: Positive for fatigue; Negative for excessive sweating, flushing or increased thirst/drinking Psych Psych: Negative for anxiety or depression Allergy Allergy/Immunology: Negative for hives and Negative for rash Cardiology Exam Const Appearance: cooperative, healthy appearing, no acute distress, well developed and well groomed Nutritional Appearance: average body habitus and well nourished Orientation: alert, awake and oriented x3 Head Head: normal to inspection, normocephalic and atraumatic Ears: hearing grossly normal bilaterally and external ears normal Nose: external nose normal, nares normal, nasal mucous membranes and turbinates normal, septum normal and no nasal discharge Face and Sinus: face symmetric Mouth: oral mucosae normal, tongue normal, oropharynx normal and moist mucous membranes Teeth and gingiva: dentition normal Throat: posterior oropharynx normal, tonsils normal and uvula midline Eyes General: appearance normal, both eyes and all related structures Eyelids: eyelids normal Conjunctivae: conjunctivae normal Pupils: PERRL, normal by confrontation and accommodation normal EOM: EOM intact bilaterally Neck Neck: normal visual inspection, trachea midline and no JVD JVD: +5 Carotids: normal carotid upstroke and bounding pulses Chest Chest inspection: normal inspection of the chest, symmetric chest movement and normal respiratory effort Auscultation: Bilateral: Rales Cardio Palpation: normal PMI Rate: regular rate Rhythm: regular rhythm Heart sounds: S1 normal, S2 normal and normal, physiologic split S2; Negative rub, gallop or murmur GI GI: normal to inspection, soft, no hepatosplenomegaly and bowel sounds present Neuro General: patient alert, patient awake, patient oriented x3, gait normal, moves all extremities and no focal sensory deficit Skin Skin: no rashes or lesions noted Extremities Pulses: Normal: Right Femoral Pulse, Left Femoral Pulse, Right Dorsalis Pedis Pulse, Left Dorsalis Pedis Pulse, Right Posterior Tibial Pulse, Left Posterior Tibial Pulse, Right Radial Pulse and Left Radial Pulse Lower Extremity Edema: None: Bilateral Musculoskel Musculoskeletal: No joint tenderness Psych Psychological: normal affect Supplemental Info Supplemental Information Holter monitor from 12/16/2022: Atrial fibrillation Minimum heart rate 40 bpm. Average heart rate 83 bpm. Maximal heart 133 bpm. Ventricular ectopy 0.4%. Supraventricular ectopy 0.0%. Longest R to R interval 4.2 seconds seconds. Atrial fibrillation 99.6%. No ventricular tachycardia. The patient kept a 24-hour diary and noted dizziness with which occasionally correlated with ectopy. Echocardiogram 12/15/22: Interpretation Summary Mild global left ventricular systolic dysfunction. The estimated ejection fraction is 50 %. Septal motion consistent with IVCD. Severe concentric left ventricular hypertrophy. Apical false tendon noted. The left atrium is mildly enlarged. Mild diffuse mitral valve thickening. Moderate (2+) mitral valve insufficiency. Mild diffuse thickening of the tricuspid valve. Mild tricuspid valve insufficiency. Mild focal aortic valve calcification. Trivial aortic valve insufficiency. Right ventricular systolic pressure estimated to be 23 mmHg. Diastolic function is indeterminate. Cardiac Catheterization 12/17/2021: PROCEDURE(S) PERFORMED [id number])[facility]ICAL PROFILE AND INDICATIONS Indications: Suspected CAD Heart Failure: NYHA Class: 3 Stress/Imaging Date: CAD Presentations: Symptom unlikely to be ischemic. CONCLUSIONS Non obstructive coronary arteries Cardiomyopathy: Dilated Cardiomyopathy: Congestive RECOMMENDATIONS Medical therapy CORONARY ANGIOGRAPHY DOMINANCE: Right Dominant LEFT HEART ASSESSMENT Left Ventricular Ejection Fraction: by Echo 35 % Global Hypokinesis - Moderate Depressed Left Ventricular systolic function LEFT MAIN: Angiographically normal LEFT ANTERIOR DESCENDING ARTERY: No significant disease noted CIRCUMFLEX ARTERY: No significant disease noted RIGHT CORONARY ARTERY: No significant disease noted Echocardiogram from 04/12/2022: Interpretation Summary Normal LV size. The estimated ejection fraction is 35 %. Moderate concentric left ventricular hypertrophy. There is moderate global hypokinesis of the left ventricle. Mild (1+) eccentric mitral valve insufficiency. Trivial aortic valve insufficiency. Small pericardial effusion. Compared to previous study, the left ventricular systolic function is the same. ECHOCARDIOGRAM 12/13/2021 Interpretation Summary Normal LV size. Moderate concentric left ventricular hypertrophy. The estimated ejection fraction is 35 %. There is moderate to severe global hypokinesis of the left ventricle. Small pericardial effusion. Mild (1+) eccentric mitral valve insufficiency. Stage 3 diastolic dysfunction. Pulmonary artery systolic pressure is 34 mmHg. Stress Test Report 09/13/2021 Conclusion: Mild to moderate cardiomyopathy. No evidence of ischemia noted at a moderate workload. Labs: No Data to Display Diagnostics: Electrocardiogram Pacemaker Check Pacemaker Procedure Note Chest X-Ray Pulmonary: No Data to Display Past Visits: No Data to Display Assessment and Plan Assessment and Plan (1) Pacemaker: Status: Acute Comment: DPPM implant 01/09/23 Plan: He is status post permanent pacemaker implantation. His pacemaker interrogation has demonstrated normal pacemaker function. An appropriate battery longevity. He however has noted mild shortness of breath and I would recommend that we start him back on his Lasix at 40 mg 3 times a week. His lisinopril can be discontinued. (2) Non-ischemic cardiomyopathy: Status: Chronic Plan: He does have mild nonischemic cardiomyopathy with an estimated ejection fraction of 50%. He however has noted mild shortness of breath and I would recommend that we start him back on his Lasix at 40 mg 3 times a week. His lisinopril can be discontinued. He has been having some dizziness with this. 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 Joelle Stern, MD Joelle Stern MD Work Phone: Start: 02-23-2023 End: 02-23-2023 Pacemaker Check Procedure Note: See Note; NOTES: [facility] [place] [address] Pacemaker Check Date of Service: 02/23/23 1528 MR#: [id number] Acct: [id number] Name: BERNY INFANTE Rep #: [id number] : 1940 From: Elda Segal Age/Sex: 83/M [place] [facility]: Signed Billing Codes PM Device Codes: PM Dev Prog Eval, Dual Assessment and Plan Assessment and Plan (1) Pacemaker: Status: Acute Comment: DPPM implant 01/09/23 (2) Sick sinus syndrome: Status: Acute (3) HFrEF (heart failure with reduced ejection fraction): Status: Chronic (4) Atrial flutter: Status: Acute 02/23/23 1528 <Electronically signed by Elda Segal > Date Elda Purvis Signature: Date (if applicable) CC: Joelle Stern MD Work Phone: Start: 01-19-2023 End: 01-19-2023 Pacemaker Check Procedure Note: See Note; NOTES: [facility] [address] [place], [place] [address] Pacemaker Check Date of Service: 01/19/23 1717 MR#: [id number] Acct: [id number] Name: BERNY INFANTE Rep #: [id number] : 1940 From: Elda Segal Age/Sex: 82/M [place] [facility] Status: Signed Billing Codes PM Device Codes: PM Dev Prog Eval, Dual Assessment and Plan Assessment and Plan (1) Pacemaker: Status: Acute Comment: DPPM implant 01/09/23 (2) Sick sinus syndrome: Status: Acute (3) HFrEF (heart failure with reduced ejection fraction): Status: Chronic (4) Atrial flutter: Status: Acute (5) Non-ischemic cardiomyopathy: Status: Chronic (6) Left bundle branch block (LBBB): Status: Chronic 01/19/231717 <Electronically signed by Elda Segal > Date Elda Segal Cosignsilvano Signature: Date (if applicable) CC: Joelle Stern MD Work Phone: Start: 01-10-2023 End: 01-10-2023 Pacemaker Check Procedure Note: See Note; NOTES: [facility] [address] [place], [place] [id number] Pacemaker Check Date of Service: 01/10/23 174 MR#: [id number] Acct: [id number] Name: BERNY INFANTE Rep #: [id number] : 1940 From: Elda Segal Age/Sex: 82/M [place] [facility] [place]: Signed Billing Codes PM Device Codes: PM Dev Prog Eval, Dual Assessment and Plan Assessment and Plan (1) Pacemaker: Status: Acute Comment: DPPM implant 01/09/23 (2) Sick sinus syndrome: Status: Acute (3) HFrEF (heart failure with reduced ejection fraction): Status: Chronic (4) Atrial flutter: Status: Acute Medications: On Hold apixaban (Eliquis) Hold Comment: Resume on 01/18/23. 2.5 ea PO DAILY blood thinner 01/10/231746 <Electronically signed by Elda Segal > Date Elda Segal Cosigner Signature: Date (if applicable) CC: Joelle Stern MD Work Phone: Start: 01-09-2023 End: 01-09-2023 TXT:Device Implant / Explant Procedure Note: See Note; NOTES: [facility] Imaging Services [address] [place] [id number] TXT:Device Implant / Explant MR#: [id number] Acct: [id number] Name: BERNY INFANTE Rep #: [id number] : 1940 82 From: Damion Vu MD PCP: Dr. Joelle Stern MD Status:[facility] Patient: BERNY INFANTE Study Date: 01/09/2023 Performing: Damion Vu MD : 1940 Age: 82 Gender: male PROCEDURES PERFORMED [id number]-([id number])INITIAL PACER INSERT+VENTRICULAR LEAD INDICATIONS Sinoatrial node dysfunction/Sick sinus syndrome PROCEDURE DETAILS The patient was brought to the Catheterization Lab in the postabsorptive nonsedated state. Informed consent was obtained prior to the procedure. Local anesthetic was given subcutaneously to the left upper chest area with Lidocaine 2%. Access was achieved and a guidewire was advanced into the left subclavian vein. A peel-away sheath was inserted into the left subclavian vein. PPM ventricular lead was inserted / positioned to right ventricular apex. PPM ventricular lead testing performed. PPM ventricular lead testing performed. A peel-away sheath was inserted into the left subclavian vein. The wire was then removed. PPM atrial lead was inserted / positioned to the right atrial appendage. PPM atrial lead testing performed. Device pocket was irrigated with antibiotic. PPM generator was attached to the lead(s) and inserted into the pocket. Subcutaneous closure was completed. Skin closure was completed. Steri-strips applied to Lt chest area. The patient tolerated the procedure well. Estimated Blood Loss: < 10 mls IMPLANTED / EX-PLANTED DEVICES IMPLANTED DEVICE(S): PPM Ventricular lead - Foxpro Developer: [employer], Model # 7842 , Serial # [id number] PPM Atrial lead - Foxpro Developer: [employer], Model # 7841 , Serial # [id number] PPM Generator - Foxpro Developer: [employer], Model # L111 , Serial # [id number] DEVICE PARAMETERS ATRIAL LEAD PARAMETERS: P wave- .9 (mV) Current- 1.5 (mA) threshold- .8 (V) impedence- 528 (OHMS) VENTRICULAR LEAD PARAMETERS: R wave- 7.9 (mV) Current- .8 (mA) threshold- .6 (V) impedence- 792 (OHMS) DEVICE PARAMETERS: Mode- ddd Lower rate- 50 Upper rate- 130 CONCLUSIONS / RECOMMENDATIONS Device Conclusions: Successful implantation of a dual chamber pacemaker Device Recommendations: Follow up with Primary Care Physician PROCEDURE MEDICATIONS Versed 1 mg IV Fentanyl 50 mcg IV Versed 1 mg IV Antibiotic given in appropriate timeframe. Ancef 2 Gm IV 01/09/2023 14:02:36 Benadryl 50 mg IV @ 01/09/2023 14:09:46 Solu-medrol 125 mg IV 01/09/2023 14:09:56 Signed By Damion Vu MD On 01/09/2023 15:28:05 Damion Vu MD 01/09/23 1528 Date Damion Vu MD Cosigner Signature: Date (if indicated) CC: Dr. Damion Vu MD; Dr. Joelle Stern MD Date Dictated: 01/09/23 1425 Date Transcribed: 01/09/238 Inspector Circuitry Negative: CO Signed Joelle Stern MD Work Phone: Start: 12-29-2022 End: 01-04-2023 12 Lead EKG performed by [facility] Procedure Note: See Note; NOTES: [address] [address] 12 Lead EKG performed by [facility] 12/29/22 1133 MR#: [id number] Acct: [id number] Name: BERNY INFANTE Rep #: [id number] : 1940 82 From: Damion Vu MD Attending Dr: Dr. Damion Vu MD Status: DEP A MB Ordering Dr: Damion Vu MD Date: 12/29/22 [place] [facility] Sex: M C [place] [facility] Lead EKG performed by [facility] Sinus Rhythm -First degree A-V block Darrion = 254-Left bundle branch block. Anteroseptal infarct -age undetermined. ABNORMAL 12/29/22 1552 <Electronically signed by Damion Vu MD> Date Damion Vu MD CC: Dr. Joelle Stern MD Date Dictated: 12/29/221132 Date Transcribed: 12/29/221132 Inspector Circuitry Negative: CO Signed Damion Vu MD Work Phone: Start: 12-29-2022 End: 12-29-2022 Cardiology Visit Report Procedure Note: See Note; NOTES: [facility] [address] [place] [address] OFFICE VISIT Date of Service: 12/29/22 MR#: [id number] Acct: [id number] Name: BERNY INFANTE Rep #: [id number] : 1940 Provider: Dr. Damion Vu MD Age/Sex: 82/M [place] [facility] Status: Signed HPI HPI History of Present Illness Details: This is a pleasant 82-year-old man who presents to the office today for a cardiovascular follow up. He was seen in the emergency room with complaints of low heart rate detected on his Apple watch with a near syncopal episode with lightheadedness and dizziness. He was noted to have significant bradycardia into the 20s was admitted to the intensive care unit. His EKG at that time demonstrated atrial flutter with a slow ventricular response rate his Eliquis was held and his beta-pilar which was a low-dose of carvedilol 3.125 twice a day was also held and discontinued. He subsequently improved with a diagnosis of symptomatic bradycardia and atrial flutter. He was discharged home with a 24-hour Holter monitor which demonstrated atrial flutter with a pause of 4.2 seconds. He had previously asked to member undergone a cardiac catheterization on December 17, 2021 which demonstrated minimal coronary artery disease. His most recent echocardiogram during this admission demonstrated an ejection fraction of approximately 50%. He tells me that he has been doing quite well at this time apart from an episode of near syncope. He presents now for follow-up visit. His EKG done here today demonstrates sinus rhythm with a first-degree AV block and a left bundle branch block and a rate of 68 bpm. He denies chest, arm, jaw, or neck discomfort. He states shortness of breath with activity such as stairs. He denies symptoms of shortness of breath at rest, orthopnea, PND, sudden weight gain, or bilateral lower extremity edema. He denies chronic cough. He denies palpitations, dizziness, near syncope, or syncopal episodes. He denies claudication issues. He states lightheadedness, most notably with position changes. He denies fever or chills. He denies blood in urine, blood in stool, or epistaxis. He denies myalgia. He denies unexplainable fatigue. His exercise tolerance is stable. 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 Imaging Required: No Accompanied by: Is patient in pain?: No Allergies iodine Allergy (Verified 12/29/22 11:06) Shortness of breath Medications folic acid 1 mg tablet 1 mg PO BID 10/11/21 [History Confirmed 12/29/22] vitamin B complex 1 cap PO BID 10/11/21 [History Confirmed 12/29/22] rosuvastatin 20 mg tablet 20 mg PO DAILY 12/16/21 [History Confirmed 12/29/22] zolpidem 12.5 mg tablet,extended release,multiphase 12.5 mg PO QHS 04/04/22 [History Confirmed 12/29/22] lisinopril 5 mg tablet 5 mg PO DAILY #90 tabs 09/20/22 [Rx Confirmed 12/29/22] duloxetine 20 mg capsule,delayed release 20 mg PO DAILY 12/14/22 [History Confirmed 12/29/22] acetaminophen 325 mg tablet (Tylenol) 650 mg PO Q4H PRN PRN Fever, pain 1-08/29 #0 tabs 12/16/22 [Rx Confirmed 12/29/22] apixaban 2.5 mg tablet (Eliquis) ea PO 12/29/22 [History Confirmed 12/29/22] Ejection fraction %: 50 to 54 PFSH Medical History Atrial flutter CKD (chronic kidney disease), stage III Depression Dyspnea Fatigue HFrEF (heart failure with reduced ejection fraction) History of hay fever HTN (hypertension) Hyperkalemia, diminished renal excretion Hyperlipidemia Left bundle branch block (LBBB) Left ventricular diastolic dysfunction LVH (left ventricular hypertrophy) Non-ischemic cardiomyopathy Obstructive sleep apnea Persistent atrial fibrillation Prostate cancer Sick sinus syndrome Surgical History History of left heart catheterization (12/17/21) History of prostate surgery History of total bilateral knee replacement Hx of appendectomy Social History household members: spouse Smoking Status: Never smoker alcohol intake: current alcohol intake frequency: 0-2 drinks per day Alcohol type: beer, wine and hard liquor details: 1 drink per night substance use type: does not use caffeine: Yes Type: coffee Number of servings: 2 ROS Const Const: Positive for fatigue; Negative for weakness, headache(s), frequent falls, difficulty sleeping or excessive sweating Eyes Eyes: Negative for loss of peripheral vision, transient loss of vision, blurry vision, double vision or tunnel vision ENT ENT: Negative for headache(s), dizziness, Nosebleed/epistaxis or balance problems Cardio Chest Pain: No Palpitations: No Edema: None Muscle aches with walking: None Resp Respiratory: Positive for SOB with activity; Negative for SOB at rest, SOB orthopnea SOB lying down, Cough or paroxysmal nocturnal dyspnea GI GI: Negative nausea, vomiting or heartburn : Negative for hematuria Musc Musc: Negative for muscle aches/ myalgia, muscle weakness, joint pain or balance problems Skin Skin: Negative non-healing lesions, rash or unusual bruising Neuro Neuro: Positive for lightheadedness (positional); Negative for dizziness, near syncope, syncope, orthostatic symptoms, frequent falls, headache(s), weakness, confusion, memory loss, blurry vision, double vision, vertigo or lack of coordination Billy Hematologic/Lymphatic: Negative for easy bleeding or easy bruising Endo Endo: Positive for fatigue; Negative for excessive sweating, flushing or increased thirst/drinking Psych Psych: Negative for anxiety or depression Allergy Allergy/Immunology: Negative for hives and Negative for rash Cardiology Exam Const Appearance: cooperative, healthy appearing, comfortable and no acute distress Nutritional Appearance: well nourished and overweight Orientation: alert, awake and oriented x3 Head Head: normal to inspection Ears: hearing grossly normal bilaterally Nose: external nose normal Face and Sinus: face symmetric Mouth: oral mucosae normal Eyes General: appearance normal, both eyes and all related structures Eyelids: eyelids normal EOM: EOM intact bilaterally Neck Neck: normal visual inspection and no JVD Carotids: normal carotid upstroke Chest Chest inspection: normal inspection of the chest, symmetric chest movement and normal respiratory effort; Negative cough Auscultation: Bilateral: Clear to Auscultation Cardio Rate: regular rate Rhythm: regular rhythm Heart sounds: S1 normal and S2 normal; Negative rub, gallop or murmur GI GI: normal to inspection Neuro General: patient alert, patient awake, patient oriented x3 and CN's II-XI intact bilaterally Skin Skin: no rashes or lesions noted Extremities Pulses: Normal: Right Posterior Tibial Pulse, Left Posterior Tibial Pulse, Right Radial Pulse and Left Radial Pulse Lower Extremity Edema: None: Bilateral Psych Psychological: normal affect Supplemental Info Supplemental Information Holter monitor from 12/16/2022: Atrial fibrillation Minimum heart rate 40 bpm. Average heart rate 83 bpm. Maximal heart 133 bpm. Ventricular ectopy 0.4%. Supraventricular ectopy 0.0%. Longest R to R interval 4.2 seconds seconds. Atrial fibrillation 99.6%. No ventricular tachycardia. The patient kept a 24-hour diary and noted dizziness with which occasionally correlated with ectopy. Echocardiogram 12/15/22: Interpretation Summary Mild global left ventricular systolic dysfunction. The estimated ejection fraction is 50 %. Septal motion consistent with IVCD. Severe concentric left ventricular hypertrophy. Apical false tendon noted. The left atrium is mildly enlarged. Mild diffuse mitral valve thickening. Moderate (2+) mitral valve insufficiency. Mild diffuse thickening of the tricuspid valve. Mild tricuspid valve insufficiency. Mild focal aortic valve calcification. Trivial aortic valve insufficiency. Right ventricular systolic pressure estimated to be 23 mmHg. Diastolic function is indeterminate. Cardiac Catheterization 12/17/2021: PROCEDURE(S) PERFORMED [id number])[facility] CLINICAL PROFILE AND INDICATIONS Indications: Suspected CAD Heart Failure: NYHA Class: 3 Stress/Imaging Date: CAD Presentations: Symptom unlikely to be ischemic. CONCLUSIONS Non obstructive coronary arteries Cardiomyopathy: Dilated Cardiomyopathy: Congestive RECOMMENDATIONS Medical therapy CORONARY ANGIOGRAPHY DOMINANCE: Right Dominant LEFT HEART ASSESSMENT Left Ventricular Ejection Fraction: by Echo 35 % Global Hypokinesis - Moderate Depressed Left Ventricular systolic function LEFT MAIN: Angiographically normal LEFT ANTERIOR DESCENDING ARTERY: No significant disease noted CIRCUMFLEX ARTERY: No significant disease noted RIGHT CORONARY ARTERY: No significant disease noted Echocardiogram from 04/12/2022: Interpretation Summary Normal LV size. The estimated ejection fraction is 35 %. Moderate concentric left ventricular hypertrophy. There is moderate global hypokinesis of the left ventricle. Mild (1+) eccentric mitral valve insufficiency. Trivial aortic valve insufficiency. Small pericardial effusion. Compared to previous study, the left ventricular systolic function is the same. ECHOCARDIOGRAM 12/13/2021 Interpretation Summary Normal LV size. Moderate concentric left ventricular hypertrophy. The estimated ejection fraction is 35 %. There is moderate to severe global hypokinesis of the left ventricle. Small pericardial effusion. Mild (1+) eccentric mitral valve insufficiency. Stage 3 diastolic dysfunction. Pulmonary artery systolic pressure is 34 mmHg. Stress Test Report 09/13/2021 Conclusion: Mild to moderate cardiomyopathy. No evidence of ischemia noted at a moderate workload. Labs: LDL Cholesterol 64 mg/dL (0-130) HDL Cholesterol 62 mg/dL (40-) Triglycerides 67 mg/dL (-199) VLDL Cholesterol 13 mg/dL (5-40) Diagnostics: Electrocardiogram Echocardiogram Pulmonary: No Data to Display Assessment and Plan Assessment and Plan (1) Atrial flutter: Status: Acute Plan: He does have episodes of paroxysmal atrial fibrillation and flutter with a slow ventricular response rate. He appears to be in sinus rhythm at this time. This is evidence of a tachybradycardia syndrome. I will recommend that we consider permanent pacemaker implantation in this gentleman. The risk benefits alternatives have been discussed with him he understands and agrees to proceed. (2) Left bundle branch block (LBBB): Status: Chronic Plan: He does have a chronic left bundle branch block which is likely related to his cardiomyopathy. We will continue to follow him. (3) Non-ischemic cardiomyopathy: Status: Chronic Plan: He does have a history of nonischemic cardiomyopathy. His estimated ejection fraction has improved and I would recommend continuing the same with no major changes. Thank you for allowing me to participate in the care of your patient. Please don't hesitate to call if any issues arise. Orders: Orders 12 Lead EKG performed by [facility] Today G47.33 - Obstructive sleep apnea (adult) (pediatric), I44.7 - Left bundle-branch block, unspecified, I48.92 - Unspecified atrial flutter, I50.20 - Unspecified systolic (congestive) heart failure, I51.7 - Cardiomegaly, I51.9 - Heart disease, unspecified Basic Metabolic Profile (BMP) Today I48.92 - Unspecified atrial flutter CBC W/Diff, Automated Today I42.8 - Other cardiomyopathies Plan Details Follow Up: 3 Months ([employer]) Coding Level of Care Code Off vis,est,level 4 Diagnoses Atrial flutter I48.92 Left bundle branch block (LBBB) I44.7 Non-ischemic cardiomyopathy I42.8 Coding Level of Care Code Off vis,est,level 4 Diagnoses Atrial flutter I48.92 Left bundle branch block (LBBB) I44.7 Non-ischemic cardiomyopathy I42.8 12/29/22 1552 <Electronically signed by Damion Vu MD> Date Damion Vu MD Cosigner Signature: Date (if applicable) CC: MD Joelle Segura MD Work Phone: Start: 12-14-2022 End: 12-14-2022 Emergency Department Summary Procedure Note: See Note; NOTES: [facility] Medical Records Department [address] [place] [address] Emergency Department Summary 12/14/22 MR#: [id number] Acct: [id number] Name: BERNY INFANTE Rep #: [id number] : 1940 82 From: Binh Rodas MD PCP: Dr. Joelle Stern MD Status:REG ER Location: ED HPI History of Present Illness Chief Complaint: Palpitations Informant: patient Narrative Narrative: Patient has had low heart rate episodically for the past 2 weeks, most of the day today, as told by the bradycardia alarm on his apple watch that he wears daily. He has a history of a nonischemic cardiomyopathy, his last EF was measured at 40% according to the patient. He states he had a procedure today where he had some injections in his back and he had some anesthesia, with an IV, outpatient procedure. They were commenting on how he was bradycardic and the patient felt okay at the time, however this evening he was near syncopal several times. He has had no chest discomfort, dyspnea, focal neurologic symptoms, or syncope. No recent illness. 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 He is on carvedilol 3.125 twice daily, that is not a new medication and has not been changed lately, he has not taken too much of it on accident, he takes it as prescribed. He has not yet had a tonight. He presents around 2200 in the evening. [facility] Medical History (Updated 12/14/22 @ 23:[address] Fabiola Nath MD) CKD (chronic kidney disease), stage III Depression History of hay fever HTN (hypertension) Hyperlipidemia Left bundle branch block (LBBB) Left ventricular diastolic dysfunction LVH (left ventricular hypertrophy) Non-ischemic cardiomyopathy Obstructive sleep apnea Prostate cancer Home Medications folic acid 1 mg tablet 1 mg PO BID 10/11/21 [History Last Taken 12/15/21] potassium citrate 10 mEq (1,080 mg) tablet,extended release 10 meq PO DAILY 10/11/21 [History Last Taken 12/15/21] vitamin B complex 1 cap PO BID 10/11/21 [History Last Taken 12/15/21] rosuvastatin 20 mg tablet 20 mg PO DAILY 12/16/21 [History Last Taken 12/15/21] zolpidem 12.5 mg tablet,extended release,multiphase 12.5 mg PO QHS 04/04/22 [History Last Taken Unknown] furosemide 40 mg tablet 40 mg PO QODAY 07/27/22 [History Last Taken Unknown] celecoxib 200 mg capsule 200 mg PO DAILY PRN Pain 08/10/22 [History Last Taken Unknown] lisinopril 5 mg tablet 5 mg PO DAILY #90 tabs 09/20/22 [Rx Last Taken Unknown] carvedilol 3.125 mg tablet 3.125 mg PO DAILY 12/14/22 [History Last Taken Unknown] duloxetine 20 mg capsule,delayed release 20 mg PO DAILY 12/14/22 [History Last Taken Unknown] Allergy/AdvReac Type Severity Reaction Status Date / Time iodine Allergy Shortness Verified 12/14/22 21:47 of breath Surgical History History of left heart catheterization (12/17/21) History of prostate surgery History of total bilateral knee replacement Hx of appendectomy Social History Smoking Status: Never smoker alcohol intake: current alcohol intake frequency: 0-2 drinks per day Alcohol type: beer, wine and hard liquor details: 1 drink per night substance use type: does not use caffeine: Yes Type: coffee Number of servings: 2 ROS ROS ED Constitutional Constitutional ED: Denies chills or fever(s) Eyes Eyes: Denies change in vision or diplopia ENT ENT ED: Denies rhinorrhea or sore throat Cardiovascular Cardiovascular: Denies chest pain or palpitations Respiratory/Chest Respiratory/Chest: Denies cough or dyspnea Gastrointestinal Gastrointestinal: Denies abdominal pain, diarrhea, nausea or vomiting Genitourinary Genitourinary ED: Denies dysuria or hematuria Musculoskeletal Musculoskeletal: Denies back pain or neck pain Integumentary Denies abscess or rash Neurologic Neurologic: Denies headache(s), paresthesias or weakness Psychiatric Psychiatric: Denies anxiety or suicidal thoughts EXAM Physical Exam Const Vital Signs: 12/14/22 21:45 12/14/22 22:14 12/14/22 22:36 Temperature 97.5 F L Temperature Source Temporal Pulse Rate 37 L 41 L 35 L Respiratory Rate 15 15 21 H Respiratory Effort Respiratory Pattern Blood Pressure 105/73 100/49 L 99/47 L Blood Pressure Mean 83 66 64 Pulse Ox 100 98 98 Oxygen Delivery Method Room Air Room Air Room Air 12/14/22 22:38 12/14/22 23:03 Temperature Temperature Source Pulse Rate 35 L Respiratory Rate 16 Respiratory Effort Non-Labored Respiratory Pattern Normal Blood Pressure 99/55 L Blood Pressure Mean 69 Pulse Ox 98 Oxygen Delivery Method Room Air Positive well nourished and well developed General Appearance ED: well developed and NAD HEENT Reports moist mucous membranes normocephalic and atraumatic Eyes PERRL and EOMs intact bilaterally Neck full ROM and supple Resp normal respiratory effort and clear to auscultation bilaterally Cardio regular rate and regular rhythm Cardio Narrative: Faint heart sounds Rate: bradycardia GI non-tender and non-distended Auscultation: normoactive bowel sounds Palpation: soft Back/Spine no CVA tenderness General Back: other FROM Extremity normal to inspection General Extremety ED: Negative for edema, pulses abnormal or tenderness General Extremity: Negative for edema or pulses abnormal Neuro oriented x3, CN's II-XII intact bilaterally and no sensory deficits noted Sensorium / Orientation: awake and alert Motor Exam: strength 5/5 throughout Skin no rashes or lesions noted and no wounds MDM MDM MDM Narrative Medical decision making narrative: I reviewed prior outpatient echocardiogram from the cardiology clinic. It shows global LV hypokinesis and an EF of 45%. Also reviewed the patient's prior EKG from outside area of this hospital, PCU that was done about 1 year ago. It does not show a supraventricular dysrhythmia, the QRS morphology is similar to that of today. Patient's work-up is remarkable for acute kidney injury compared with his chronic renal insufficiency, his potassium was just very mildly elevated at 5.4. This is not high enough to be causing all of this. I discussed with Cardiology Dr. Rordiguez, he agrees with admitting the patient for further evaluation and holding his Lasix and carvedilol for now. I had staff place pacemaker with pads at the bedside, so far throughout his ED stay he has not required any pacing and has not been symptomatic along with rate in the 30s since he is lying down or resting. I will give him a single dose of Kayexalate just to prevent any further escalation of his potassium levels, but I do not think he needs the whole hyperkalemia protocol. Lab Data Attestation: I reviewed the patient's lab results. Labs: Laboratory Results - last 24 hr 12/14/22 12/14/22 12/14/22 22:01 22:01 22:01 WBC 12.2 H RBC 4.68 Hgb 14.8 Hct 43.9 MCV 93.8 MCH 31.6 MCHC 33.7 RDW Std Deviation 42.0 RDW Coeff of [place] 12.0 Plt Count 253 MPV 11.0 Immature Gran % (Auto) 0.400 Neut % (Auto) 84.9 H Lymph % (Auto) 12.4 L [place] % (Auto) 2.1 Eos % (Auto) 0.0 Baso % (Auto) 0.2 Absolute Neuts (auto) 10.3 H Absolute Lymphs (auto) 1.51 Nucleated RBC % 0 Sodium 137 Potassium 5.4 H Chloride 106 Carbon Dioxide 23.0 Anion Gap 8 BUN 62 H Creatinine 2.54 H Estim Creat Clear Calc 23.88 Est GFR (MDRD) Af Amer 31 L Est GFR (MDRD) Non-Af 26 L BUN/Creatinine Ratio 24.4 H Glucose 192 H Calcium 8.9 Troponin I High Sens 48 Rhythm Strip Rhythm Strip: A flutter with approximately 6: 1 conduction Rate: 37 Ectopy: PVC(s) EKG Initial EKG: Attestation: I personally reviewed and interpreted this EKG as follows: Comments: Atrial flutter with variable conduction, but averaging 5: 1-6: 1. No acute injury pattern. Low voltage. Occasional PVC. Prior EKG tracings: available for review Prior: Changed Discharge Plan Dx/Rx/DC Orders Clinical Impression: Symptomatic bradycardia, Atrial flutter, Acute kidney injury, Hyperkalemia, diminished renal excretion Disposition Disposition: Acute Care Hospital [facility] What to do if you have Problems For any increased pain, shortness of breath, bleeding, nausea or vomiting, chest pain, or any unexpected problems, contact your Primary Care Provider. Call [facility] ([phone]) or report to the closest Emergency Room. Call 911 if necessary. 12/14/22 0755 <Electronically signed by Binh Rodas MD> Cosigner Signature (if applicable): CC: Dr. Joelle Stern MD Signed Joelle Stern MD Work Phone: Start: 10-21-2022 End: 10-24-2022 Echo, Limited Study Procedure Note: See Note; NOTES: [facility] Cardiovascular Services [address] [place] [address] Echo, Limited Study 10/21/22 1410 MR#: [id number] Acct: [id number] Name: UNRULYMILENABERNYMOND Rep #: [id number] : 1940 82 From: Damion Vu MD Attending Dr: GHAZALA AugusteC Status: REG CLI Ordering Dr: Gal Bryant NP [employer]-C Date: 10/21/22 Location: [facility] Sex: M C Admitted: Reason For Study: NICM Procedure This was a 2D Doppler, Color Flow transthoracic echocardiogram. Myocardial strain analysis was performed in this exam to aid in the assessment of cardiac function. Exam performed in department. Left Ventricle Normal LV size. Moderate concentric left ventricular hypertrophy. The estimated ejection fraction is 45 %. There is mild to moderate global hypokinesis of the left ventricle. Right Ventricle Normal RV size. Normal systolic function. Atria Normal left atrium. Normal right atrium. Mitral Valve Bileaflet diffuse mitral valve thickening. Trivial mitral valve insufficiency. Tricuspid Valve Normal tricuspid valve. Aortic Valve Trisinus/trileaflet aortic valve. Pulmonic Valve Normal pulmonic valve. Great Vessels Normal aortic root. The pulmonary artery is normal size. Normal inferior vena cava. Pericardium/Pleural No pericardial effusion. MMode/2D Measurements Calculations LVIDd: 5.0 cm IVSd: 1.4 cm Ao root diam: 3.4 cm LVIDs: 3.8 cm LVPWd: 1.5 cm RVDd: 2.7 cm FS: 23.3 % LAV(MOD-bp): 61.9 ml LA A4 area: 20.8 cm2 LA dimension(2D): 3.9 cm LAV(MOD-bp) Indexed: 30.3 ml/m2 LAV(MOD-sp2): 61.7 ml LAV(MOD-sp4): 61.8 ml RA A4 area: 16.0 cm2 ECHO/Echo, Limited Study Interpretation Summary Normal LV size. Moderate concentric left ventricular hypertrophy. The estimated ejection fraction is 45 %. There is mild to moderate global hypokinesis of the left ventricle. Bileaflet diffuse mitral valve thickening. The global longitudinal strain is severely abnormal. The global longitudinal strain = -10.8% (abnormal). Ordering Physician: Gal Bryant Referring Physician: Joelle Stern Performed By: Shelley Powell, OWEN, RVT 10/24/22 1227 Date Damion Vu MD CC: MAURICIO Bryant; Dr. Joelle Stern MD Date Dictated: 10/21/22 1410 Date Transcribed: 10/24/221226 Inspector Circuitry Negative: Signed Joelle Stern MD Work Phone: Start: 09-23-2022 End: 09-23-2022 Spine Lumbar (Routine) Procedure Note: See Note; NOTES: [facility] Imaging Services [address] [place] [id number] Spine Lumbar (Routine) MR#: [id number] Acct: [id number] Name: BERNY INFANTE Rep #: [id number] : 1940 M 82 From: Alvino Rodgers MD PCP: Dr. Joelle Stern MD Status: REG CLI Study: Spine Lumbar (Routine) Date of Exam: 09/23/22 Exam# [id number] Ordering Dr: Joelle Stern MD STUDY: MRI LUMBAR SPINE WITHOUT CONTRAST REASON FOR EXAM: Male, 82 years old. Low back pain with left-sided sciatica TECHNIQUE: Standardized fat and water weighted pulse sequences were obtained in the sagittal and axial planes. COMPARISON: CT abdomen and pelvis without contrast 06/13/2013. FINDINGS: T11-T12 and T12-L1: (Sagittal only). Normal endplates. Normal disc height, hydration and morphology. No ventral extradural defects. Normal central canal and bilateral intervertebral neural foramina. Normal lumbar lordosis. There is no substantial scoliosis. Normal conus medullaris that terminates at the lower T12 vertebral body level. L1-2: Normal endplates. Normal disc height, hydration and morphology. Normal bilateral facet joints. Normal central canal and bilateral lateral recesses. Normal bilateral intervertebral neural foramina. L2-3: Normal endplates. Mild disc space height narrowing. Mild ventral extradural defect due to posterior bulging annulus. Mild bilateral degenerative facet arthropathy. Mild dorsal epidural lipomatosis. Normal central canal and bilateral lateral recesses. Normal bilateral intervertebral neural foramina. L3-4: Normal endplates. Minimal disc space height narrowing. No ventral extradural defect. Mild bilateral degenerative facet arthropathy. Mild central canal stenosis with an AP canal diameter of 10 mm. Normal bilateral lateral recesses. Normal bilateral intervertebral neural foramina. L4-5: Normal place. Minimal disc space narrowing. Mild ventral extradural defect due to small posterior bulging annulus. Moderate bilateral degenerative facet arthropathy. Mild central canal stenosis with AP canal diameter of 10 mm. Pronounced stenosis of the left intervertebral neural foramen with encroachment/entrapment of the left L4 nerve. Moderate stenosis of the right intervertebral neural foramen with partial impingement/entrapment of the right L4 nerve. L5-S1: Modic type II degenerative vertebral marrow fatty changes under degenerative endplates. Pronounced disc space narrowing. Mild to moderate bilateral degenerative facet arthropathy. Normal central canal and bilateral lateral recesses. Bilateral L5 pars defects. No spondylolisthesis. Moderate stenosis of the left intervertebral neural foramen with minimal encroachment/entrapment of the left L5 nerve. Mild stenosis of the right intervertebral neural foramen. Normal visualized sacral ala. Normal visualized paraspinous soft tissue structures. MRI/Spine Lumbar (Routine) IMPRESSION: 1. 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 2. Mild central canal stenosis at L4-L5 disc space level with an additional diameter of 10 mm a pronounced stenosis of the left L4-L5 intervertebral neural foramen with encroachment/entrapment of the left L4 nerve and moderate stenosis of the right intervertebral neural foramen with partial impingement/entrapment of the right L4 nerve. 3. Mild central canal stenosis at L3-L4 disc space level with an AP canal diameter of 10 mm. 4. No MRI evidence of lumbar extruded disc fragment. Electronically Signed: Alvino Rodgers MD at 14:01 EDT Reading Location ID and State: [facility] / [place] , Service support , CC: Dr. Joelle Stern MD Inspector Circuitry Negative: Signed Joelle Stern MD Work Phone: Start: 08-10-2022 End: 08-10-2022 Pulmonary Visit Report Procedure Note: See Note; NOTES: [facility] Pulmonary Medicine of [address] [place] [address] OFFICE VISIT Date of Service: 08/10/22 MR#: [id number] Acct: [id number] Name: BERNY INFANTE Rep #: [id number] : 1940 Provider: MAURICIO Hurtado Age/Sex: 82/M [place] [facility] Status: Signed Assessment and Plan Assessment and Plan (1) Obstructive sleep apnea: Status: Acute (2) HFrEF (heart failure with reduced ejection fraction): Status: Acute Medications: Discontinued dapagliflozin (Farxiga) Discontinued Reason: Discontinued by PCP/other physicians 10 mg PO DAILY 30 tabs 11RF Plan He is using and benefiting from Pap therapy. No indication for titration study at this time. I did encourage him to get more time on the PAP machine if possible, for instance he could put it back on after his 1 episode of nocturia and also utilize it for his occasional nap. He conveys understanding and is agreeable. Continue to encourage weight loss. Contact the office for any new or worsening symptoms in the meantime. Follow-up in [address] Kaminski. Plan Details Follow Up: 6 Months ([facility]) HPI follow up for Bipap per Insurance Chief Complaint: Likes new mask HPI Comments Details: This patient presents to the office today for follow up on his MIKY complicated by heart failure. He is ambulatory and currently on room air. He has not been seen in the ED or urgent care for any respiratory illnesses. He has not required any antibiotics or prednisone for any breathing problems. He reports that he is currently only utilizing the Lasix as needed. He has not needed it in several weeks. He was told to only utilize it for greater than 2 pound weight gain overnight or 5 pounds in 1 week. He states that weight has been stable and he has not had any lower extremity edema. He denies any difficulty with shortness of breath. He is not having any wheezing, chest tightness, chest pain or palpitations. He denies any fever, chills or body aches. He has not had any cough, sputum production or hemoptysis. He reports waking up feeling rested and refreshed. He only has about 1 episode of nocturia each night. He does admit that after that episode of nocturia he does not usually put his Pap machine back on. He does occasionally take a nap for 1 to 2 hours depending on how busy a.m. after lunch . He is not currently utilizing his Pap device for naps. He is not snoring through the device. He is quite happy with his new nasal hybrid mask. He is not having difficulty with dry mouth. He also denies morning headaches. Compliance report for the last 30 days shows 100% with an average use of nearly 5 hours per night. Current settings 19/15 cmH2O. Residual AHI 1.5 events per hour. Leaks appear to be somewhat of a problems. Intake Vital Signs 08/10/22 07:43 08/10/22 08:15 Height 5 ft 11 in 5 ft 11 in Weight: 185 lb 2 oz BMI 25.8 BP 128/68 H Blood Pressure Location Rt brachial Position Sitting Respiration 16 Pulse 73 Pulse Source Monitor Temp 98 F Temperature Source Temporal Artery Pulse Oximetry (%) 97 Oxygen Delivery Method room air Intake Visit Reasons: follow up for Bipap per Insurance Chief Complaint: Sent from cardiology office Project/Production Manager Imaging Required: No Accompanied by: None Allergies iodine Allergy (Verified 08/10/22 08:17) Shortness of breath Medications folic acid 1 mg tablet 1 mg PO BID 10/11/21 [History Confirmed 08/10/22] potassium citrate 10 mEq (1,080 mg) tablet,extended release 10 meq PO BID 10/11/21 [History Confirmed 08/10/22] vitamin B complex 1 cap PO BID 10/11/21 [History Confirmed 08/10/22] rosuvastatin 20 mg tablet 20 mg PO DAILY 12/16/21 [History Confirmed 08/10/22] fluoxetine 40 mg capsule 40 mg PO DAILY 04/04/22 [History Confirmed 08/10/22] zolpidem 12.5 mg tablet,extended release,multiphase 12.5 mg PO QHS 04/04/22 [History Confirmed 08/10/22] lisinopril 5 mg tablet 5 mg PO DAILY 05/02/22 [History Confirmed 08/10/22] carvedilol 3.125 mg tablet 3.125 mg PO BID #90 tabs 05/09/22 [Rx Confirmed 08/10/22] furosemide 40 mg tablet 20 mg PO DAILY PRN 07/27/22 [History Confirmed 08/10/22] celecoxib 200 mg capsule 200 mg PO DAILY PRN Pain 08/10/22 [History Confirmed 08/10/22] PFSH Medical History Depression History of hay fever Left bundle branch block (LBBB) Left ventricular diastolic dysfunction LVH (left ventricular hypertrophy) Non-ischemic cardiomyopathy Obstructive sleep apnea Prostate cancer Surgical History History of left heart catheterization (12/17/21) History of prostate surgery History of total bilateral knee replacement Hx of appendectomy Social History Smoking Status: Never smoker alcohol intake: current alcohol intake frequency: 0-2 drinks per day Alcohol type: beer, wine and hard liquor details: 1 drink per night substance use type: does not use caffeine: Yes Type: coffee Number of servings: 2 Exam Const Constitutional: Positive conversant, cooperative, in no acute respiratory distress, healthy appearing, well developed, well nourished and good hygiene Eyes Eye: Positive clear conjunctiva; Negative scleral abnormality Ears Ear: Positive hard of hearing and external ears normal Nose face mask in place Neck Neck: Positive normal visual inspection, full ROM and trachea midline Chest Wall Chest: Positive normal inspection of the chest and symmetric chest movement; Negative increased A/P diameter Resp lung sounds: Positive clear to auscultation, good air exchange, normal expiratory time and normal respiratory effort; Negative wheezes, rhonchi or rales Cardio Cardiac: Positive regular rate, regular rhythm, S1 normal, S2 normal and normal PMI; Negative murmur GI GI: Positive normal to inspection; Negative distended Genitourinary: Positive deferred Musc Musculoskeletal: Positive steady gait and ROM normal; Negative kyphosis or scoliosis Skin Pulmonary Skin Exam: Positive intact; Negative lesion, rash or ulcers Pulses Pulse: Yes radial pulses present Extremities Extremities: Yes capillary refill normal, No clubbing, No cyanosis and No edema Neuro Neurologic: Yes no focal neuro deficits, Yes conversant, Yes cooperative, Yes normal cognition, Yes normal coordination, Yes normal concentration and Yes understands questions Psych Appearance: Positive grossly normal, eye contact and well kempt Mental Status: Positive mental status grossly normal Mood: Positive congruent mood Affect: Positive normal affect Coding Level of Care Code Off vis,est,level 3 Diagnoses Obstructive sleep apnea G47.33 HFrEF (heart failure with reduced ejection fraction) I50.20 08/10/22 0848 <Electronically signed by Shantal Hurtado NP, NP-C> Date Shantal Hurtado NP, NP-C Cosigner Signature: Date (if applicable) CC: MD Joelle Segura MD Work Phone: Start: 07-27-2022 End: 07-27-2022 Cardiology Visit Report Procedure Note: See Note; NOTES: [facility] [address] [place] [address] OFFICE VISIT Date of Service: 07/27/22 MR#: [id number] Acct: [id number] Name: BERNY INFANTE Rep #: [id number] : 1940 Provider: MAURICIO martinez Age/Sex: 82/M [place] [facility] Status: Signed HPI [facility] History of Present Illness Details: This is a pleasant 82-year-old man who presents to the office today for a cardiovascular follow up. He was seen in the office 12/16/21 for fatigue and shortness of breath over the last 2 to 3 months, decreased appetite with weight gain. In August 2021, he underwent stress testing where he exercised 7 metabolic equivalents with no evidence of ischemia. He however was noted to have a mild cardiomyopathy on his nuclear imaging. His EKG had demonstrated a sinus rhythm with a left bundle branch block. A follow-up echocardiogram performed 11/2020 demonstrated moderate concentric left ventricular hypertrophy, stage III diastolic dysfunction, moderate global hypokinesis, estimated ejection fraction of 35% and a small pericardial effusion with no tamponade physiology. He saw his PCP in the office 12/15/21, and had some blood work done which was noted to be mildly abnormal beta natruretic peptide level which was elevated, Covid which was negative, and a high-sensitivity troponin which was noted to be elevated. His creatinine was also elevated. His TSH was normal. Patient underwent a cardiac catheterization on 12/17/2021 which demonstrated non obstructive coronary arteries. He denies chest, arm, jaw, or neck discomfort. He states shortness of breath with activity such as stairs. He denies symptoms of shortness of breath at rest, orthopnea, PND, sudden weight gain, or bilateral lower extremity edema. He denies chronic cough. He denies palpitations, dizziness, near syncope, or syncopal episodes. He denies claudication issues. He states lightheadedness, most notably with position changes. He denies fever or chills. He denies blood in urine, blood in stool, or epistaxis. He denies myalgia. He denies unexplainable fatigue. His exercise tolerance is stable. 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 Accompanied by: None Is patient in pain?: No Allergies iodine Allergy (Verified 07/27/22 08:49) Shortness of breath Medications celecoxib 200 mg capsule 200 mg PO DAILY Pain 07/31/17 [History Confirmed 07/27/22] folic acid 1 mg tablet 1 mg PO BID 10/11/21 [History Confirmed 07/27/22] potassium citrate 10 mEq (1,080 mg) tablet,extended release 10 meq PO BID 10/11/21 [History Confirmed 07/27/22] vitamin B complex 1 cap PO BID 10/11/21 [History Confirmed 07/27/22] rosuvastatin 20 mg tablet 20 mg PO DAILY 12/16/21 [History Confirmed 07/27/22] fluoxetine 40 mg capsule 40 mg PO DAILY 04/04/22 [History Confirmed 05/02/22] zolpidem 12.5 mg tablet,extended release,multiphase 12.5 mg PO QHS 04/04/22 [History Confirmed 07/27/22] lisinopril 5 mg tablet 5 mg PO DAILY 05/02/22 [History Confirmed 07/27/22] carvedilol 3.125 mg tablet 3.125 mg PO BID #90 tabs 05/09/22 [Rx Confirmed 07/27/22] dapagliflozin 10 mg tablet (Farxiga) 10 mg PO DAILY #30 tabs 07/27/22 [Rx Confirmed 07/27/22] furosemide 40 mg tablet 20 mg PO DAILY PRN 07/27/22 [History] Ejection fraction %: 35 to 39 PFSH Medical History Depression History of hay fever Left bundle branch block (LBBB) Left ventricular diastolic dysfunction LVH (left ventricular hypertrophy) Non-ischemic cardiomyopathy Obstructive sleep apnea Prostate cancer Surgical History History of left heart catheterization (01/28/22) History of prostate surgery History of total bilateral knee replacement Hx of appendectomy Social History Smoking Status: Never smoker alcohol intake: current alcohol intake frequency: 0-2 drinks per day Alcohol type: beer, wine and hard liquor details: 1 drink per night substance use type: does not use caffeine: Yes Type: coffee Number of servings: 2 ROS Const Const: Negative for fatigue, weakness, headache(s), frequent falls, difficulty sleeping or excessive sweating Eyes Eyes: Negative for loss of peripheral vision, transient loss of vision, blurry vision, double vision or tunnel vision ENT ENT: Positive for balance problems (Relates to lightheadedness. ); Negative for headache(s), dizziness or Nosebleed/epistaxis Cardio Chest Pain: No Palpitations: No Edema: None Muscle aches with walking: None Resp Respiratory: Positive for SOB with activity (With stairs and increased activity); Negative for SOB at rest, SOB orthopnea SOB lying down, Cough or paroxysmal nocturnal dyspnea GI GI: Negative nausea, vomiting, heartburn or black,tarry stools : Negative for hematuria Musc Musc: Positive for joint pain (back pain) and balance problems (Relates to lightheadedness. ); Negative for muscle aches/ myalgia or muscle weakness Skin Skin: Negative non-healing lesions, rash or unusual bruising Neuro Neuro: Positive for lightheadedness (Usually when standing up too quickly); Negative for dizziness, near syncope, syncope, frequent falls, headache(s), weakness, blurry vision, double vision or lack of coordination Billy Hematologic/Lymphatic: Negative for easy bleeding or easy bruising Endo Endo: Negative for fatigue, excessive sweating or increased thirst/drinking Psych Psych: Negative for anxiety or depression Allergy Allergy/Immunology: Negative for hives and Negative for rash Cardiology Exam Const Appearance: cooperative, healthy appearing, comfortable and no acute distress Nutritional Appearance: well nourished and overweight Orientation: alert, awake and oriented x3 Head Head: normal to inspection Ears: hearing grossly normal bilaterally Nose: external nose normal Face and Sinus: face symmetric Mouth: oral mucosae normal Eyes General: appearance normal, both eyes and all related structures Eyelids: eyelids normal EOM: EOM intact bilaterally Neck Neck: normal visual inspection and no JVD Carotids: normal carotid upstroke Chest Chest inspection: normal inspection of the chest, symmetric chest movement and normal respiratory effort; Negative cough Auscultation: Bilateral: Clear to Auscultation Cardio Rate: regular rate Rhythm: regular rhythm Heart sounds: S1 normal and S2 normal; Negative rub, gallop or murmur GI GI: normal to inspection Neuro General: patient alert, patient awake, patient oriented x3 and CN's II-XI intact bilaterally Skin Skin: no rashes or lesions noted Extremities Pulses: Normal: Right Posterior Tibial Pulse, Left Posterior Tibial Pulse, Right Radial Pulse and Left Radial Pulse Lower Extremity Edema: None: Bilateral Psych Psychological: normal affect Supplemental Info Supplemental Information Cardiac Catheterization 12/17/2021: PROCEDURE(S) PERFORMED [id number])[facility] AND INDICATIONS Indications: Suspected CAD Heart Failure: NYHA Class: 3 Stress/Imaging Date: CAD Presentations: Symptom unlikely to be ischemic. CONCLUSIONS Non obstructive coronary arteries Cardiomyopathy: Dilated Cardiomyopathy: Congestive RECOMMENDATIONS Medical therapy CORONARY ANGIOGRAPHY DOMINANCE: Right Dominant LEFT HEART ASSESSMENT Left Ventricular Ejection Fraction: by Echo 35 % Global Hypokinesis - Moderate Depressed Left Ventricular systolic function LEFT MAIN: Angiographically normal LEFT ANTERIOR DESCENDING ARTERY: No significant disease noted CIRCUMFLEX ARTERY: No significant disease noted RIGHT CORONARY ARTERY: No significant disease noted Echocardiogram from 04/12/2022: Interpretation Summary Normal LV size. The estimated ejection fraction is 35 %. Moderate concentric left ventricular hypertrophy. There is moderate global hypokinesis of the left ventricle. Mild (1+) eccentric mitral valve insufficiency. Trivial aortic valve insufficiency. Small pericardial effusion. Compared to previous study, the left ventricular systolic function is the same. ECHOCARDIOGRAM 12/13/2021 Interpretation Summary Normal LV size. Moderate concentric left ventricular hypertrophy. The estimated ejection fraction is 35 %. There is moderate to severe global hypokinesis of the left ventricle. Small pericardial effusion. Mild (1+) eccentric mitral valve insufficiency. Stage 3 diastolic dysfunction. Pulmonary artery systolic pressure is 34 mmHg. Stress Test Report 09/13/2021 Exercise myocardial perfusion stress test. 81-year-old man with a history of chest pain. Stress protocol: Resting EKG demonstrates normal sinus rhythm with a rate of 82 bpm and incomplete left bundle branch block noted. Resting blood pressure is 128/84 mmHg. The patient exercised according to the regular Yandel protocol for a total duration of 5 minutes. Patient completed 2 minutes into stage II of the Yandel protocol. The maximum heart rate attained was 114 bpm which was 82% of maximum predicted heart rate the maximum workload was 7 metabolic equivalents. At rest there were no ST or T wave changes noted to suggest ischemia nonspecific ST changes were noted though the patient experienced slight pressure in the lower part of the chest. The test was terminated due to dyspnea. Myocardial perfusion protocol. 11.7 mCi of technetium 99m sestamibi was injected at rest. Patient exercised according to regular Yandel protocol for 5 minutes and at peak exercise 33.3 mCi of technetium 99m sestamibi was injected stress images were obtained stress and rest images were reconstructed and compared in the short axis vertical long and horizontal long axis. Gated images were also obtained. Perfusion SPECT analysis: Review of the stress images demonstrate normal uptake of tracer noted in all areas of the myocardium. The resting images similarly demonstrate normal uptake of tracer noted in all areas of the myocardium. No areas of reversibility are noted to suggest ischemia and no previous infarct is noted. Gated SPECT analysis: The gated ejection fraction is 34%. 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 No evidence of ischemia noted at a moderate workload. Labs: No Data to Display Diagnostics: Electrocardiogram Echocardiogram Cardiac Catheterization Pulmonary: No Data to Display Assessment and Plan Assessment and Plan (1) Non-ischemic cardiomyopathy: Status: Chronic Plan: Nonischemic cardiomyopathy: Echocardiogram 04/12/2022-EF: 35% Twelve-lead EC12/17/2021-sinus rhythm with QRS 152 Heart catheterization: 12/17/2021???nonobstructive coronary artery disease [employer] Functional Class: II ACC/AHA stage: C Guideline Directed Medical Therapy: Coreg 3.125 mg p.o. twice daily Lisinopril 5 mg p.o. daily Farxiga 10 mg p.o. daily We will not advance carvedilol or lisinopril on account of lower blood pressure. Patient is willing to reinitiate Farxiga therapy as his dizziness may have been diuretic rather than Farxiga. However, if his dizziness returns with Farxiga, he was asked to discontinue it. He will undergo repeat echocardiogram in 3 months if tolerating Farxiga therapy. If his ejection fraction continues to remain reduced, including less than 35%, will consider [employer] SPECIALIST device or if he does not tolerate Farxiga. (2) Left bundle branch block (LBBB): Status: Chronic Plan: He will continue current medical therapy, which includes Coreg 3.125 mg p.o. twice daily. (3) Hyperlipidemia: Status: Chronic Plan: This is being monitored by primary care physician. His most recent heart catheterization in November 2021 showed nonobstructive coronary artery disease. He will continue with Crestor 20 mg p.o. d aily. Orders: Orders Echo, Limited Study 3 Months I42.8 - Other cardiomyopathies, I44.7 - Left bundle-branch block, unspecified Basic Metabolic Profile (BMP) 1 Month E78.5 - Hyperlipidemia, unspecified, I42.8 - Other cardiomyopathies, I44.7 - Left bundle-branch block, unspecified Medications: New dapagliflozin (Farxiga) 10 mg PO DAILY 30 tabs 11RF Plan Details Additional Comments: Thank you for allowing me to participate in the care of your patient. Please don't hesitate to call if any issues arise. This note was generated using a voice recognition system and there may be incorrect words, spelling, or punctuation that were not noted when reviewing the office note prior to saving. 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) Coding Level of Care Code Off vis,est,level 3 Diagnoses Non-ischemic cardiomyopathy I42.8 Left bundle branch block (LBBB) I44.7 Hyperlipidemia E78.5 Coding Level of Care Code Off vis,est,level 3 Diagnoses Non-ischemic cardiomyopathy I42.8 Left bundle branch block (LBBB) I44.7 Hyperlipidemia E78.5 07/27/22 1107 <Electronically signed by Gal Bryant NP MOLD CLEANER-C> Date Gal Bryant NP MOLD CLEANER-C Cosigner Signature: Date (if applicable) CC: MD Joelle Segura MD Work Phone: Start: 05-02-2022 End: 05-02-2022 Pulmonary Visit Report Comments: See Note; NOTES: [facility] [address] [place] [address] OFFICE VISIT Date of Service: 05/02/22 MR#: [id number] Acct: [id number] Name: BERNY INFANTE Rep #: [id number] : 1940 Provider: Dr. Yandel Kaminski MD Age/Sex: 82/M [place] [facility] Status: Signed Assessment and Plan Assessment and Plan (1) Obstructive sleep apnea: Status: Acute (2) HFrEF (heart failure with reduced ejection fraction): Status: Acute Plan - Dr. Yandel Kaminski MD: Patient appears to be doing well from an MIKY standpoint. There is no indication for a titration study at this time. Given patient's heart failure, control of apnea is imperative. This requires remote monitoring. We will request a new machine as patient's current machine is 7+ years old and AHI was increasing. Clinical suspicion this is secondary to mask leak and patient was advised that it is time to upgrade his mask as it is over 8 months old. Did discuss the role of weight loss and the overall disease plan of care. Patient voiced understanding. Given stability, will continue with 1 year follow-ups. Patient was educated on reasons to call in the interim. Continue current therapy. Plan Details Follow Up: 1 Year (BWA) HPI 3 M FU Details: Patient is an 82-year-old male, currently under the care of Dr. Stern who presents for evaluation secondary to obstructive sleep apnea. Since last visit, patient denies any ER visits, hospitalizations or prednisone burst. Patient overall feels subjectively unchanged compared to previous. Patient has been doing well from an MIKY standpoint. Patient currently uses a fullface interface. Patient does report that he has had his mask for approximately 8 months. Patient denies any pain at the interface site, epistaxis or hoarseness. Patient denies any morning headache. Patient denies dry mouth in the morning. Patient wakes up feeling refreshed and takes naps rarely. Patient does not typically use their Pap machine with these naps. Patient has no respiratory complaints at this time. Patient has not had any change in exercise tolerance. Patient is not reporting any nocturnal cough. Patient has no constitutional symptoms such as fever, chills, nausea or vomiting. No lower extremity edema has been reported. Review of systems otherwise negative from a constitutional, HEENT, respiratory, cardiovascular, GI, genitourinary, musculoskeletal, skin, neurologic, psychiatric and hematologic system unless stated above. Documentation personally reviewed with the patient Compliance report (February 2022): The patient was compliant 60% of the time for an average use of 5 hours 45 minutes on AutoSet with a median pressure of 11.2 cm of water with a residual AHI of 3.3 and poorly controlled leak. 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: No DME Vendor: [employer] Accompanied by: Self Is patient in pain?: No Allergies iodine Allergy (Verified 05/02/22 07:41) Shortness of breath Medications celecoxib 200 mg PO DAILY 07/31/17 [History Confirmed 05/02/22] folic acid 1 mg PO BID 10/11/21 [History Confirmed 05/02/22] potassium citrate 10 meq PO BID 10/11/21 [History Confirmed 05/02/22] vitamin B complex 1 cap PO BID 10/11/21 [History Confirmed 05/02/22] rosuvastatin 20 mg tablet 20 mg PO DAILY tab 12/16/21 [History Confirmed 05/02/22] carvedilol 3.125 mg PO BID #90 tab 12/17/21 [Rx Confirmed 05/02/22] furosemide 40 mg tablet 20 mg PO DAILY #90 tab 02/14/22 [Rx Confirmed 05/02/22] fluoxetine 40 mg capsule 40 mg PO DAILY cap 04/04/22 [History Confirmed 05/02/22] zolpidem 12.5 mg tablet,extended release,multiphase 12.5 mg PO QHS tab 04/04/22 [History Confirmed 05/02/22] lisinopril 5 mg tablet 5 mg PO DAILY tab 05/02/22 [History] [facility] Medical History Depression History of hay fever Left bundle branch block (LBBB) Left ventricular diastolic dysfunction LVH (left ventricular hypertrophy) Non-ischemic cardiomyopathy Obstructive sleep apnea Prostate cancer Surgical History History of left heart catheterization (12/17/21) History of prostate surgery History of total bilateral knee replacement Hx of appendectomy Social History Smoking Status: Never smoker alcohol intake: current alcohol intake frequency: 0-2 drinks per day Alcohol type: beer, wine and hard liquor details: 1 drink per night substance use type: does not use caffeine: Yes Type: coffee Number of servings: 2 Exam Const Constitutional: Positive conversant, cooperative, in no acute respiratory distress, healthy appearing, well developed, well nourished and good hygiene Eyes Eye: Positive clear conjunctiva; Negative scleral abnormality Ears Ear: Positive external ears normal; Negative hearing normal or hard of hearing Neck Neck: Positive normal visual inspection, full ROM and trachea midline Chest Wall Chest: Positive normal inspection of the chest and symmetric chest movement; Negative increased A/P diameter Resp lung sounds: Positive clear to auscultation, good air exchange, normal expiratory time and normal respiratory effort; Negative diminished lung sounds, wheezes, wheeze present on forced exhalation, rhonchi, rales or dullness Cardio Cardiac: Positive regular rate, regular rhythm, S1 normal, S2 normal and normal PMI; Negative murmur GI GI: Positive normal to inspection; Negative distended Genitourinary: Positive deferred Musc Musculoskeletal: Positive steady gait and ROM normal; Negative kyphosis or scoliosis Skin Pulmonary Skin Exam: Positive intact; Negative lesion, rash or ulcers Neuro Neurologic: Yes conversant Psych Appearance: Positive grossly normal, eye contact and well kempt Mental Status: Positive mental status grossly normal Affect: Positive normal affect Coding Level of Care Code Off vis,est,level 3 Diagnoses Obstructive sleep apnea G47.33 HFrEF (heart failure with reduced ejection fraction) I50.20 05/02/22 0814 <Electronically signed by Yandel Kaminski MD> Date Yandel Kaminski MD Cosigner Signature: Date (if applicable) CC: MD Joelle Segura MD Work Phone: Start: 04-12-2022 End: 04-12-2022 Echo Complete Comments: See Note; NOTES: [facility] [address] [place] [address] Echo Complete 04/12/22 1011 MR#: [id number] Acct: [id number] Name: BERNY INFANTE Rep #: [id number] : 1940 82 From: Damion Vu MD Attending Dr: Masha Glaser MOLD CLEANER-C Status: [facility] Ordering Dr: Masha Glaser NP MOLD CLEANER-C Date: 04/12/22 Location: [facility] Sex: M C Admitted: Reason For Study: CMP Procedure This was a 2D Doppler, Color Flow transthoracic echocardiogram. Exam performed in department. Left Ventricle Normal LV size. Moderate concentric left ventricular hypertrophy. The estimated ejection fraction is 35 %. There is moderate global hypokinesis of the left ventricle. Right Ventricle Normal RV size. Normal systolic function. Atria Normal left atrium. Normal right atrium. Mitral Valve Normal mitral valve. Mild (1+) eccentric mitral valve insufficiency. Tricuspid Valve Normal tricuspid valve. Aortic Valve Trisinus/trileaflet aortic valve. Trivial aortic valve insufficiency. Pericardium/Pleural Small pericardial effusion. MMode/2D Measurements Calculations LVIDd: 4.5 cm IVSd: 1.6 cm LA dimension: 4.1 cm LVIDs: 3.5 cm LVPWd: 1.9 cm RVDd: 3.6 cm FS: 22.4 % LAV(MOD-bp): 59.2 ml SV(MOD-sp4): 49.5 ml LVAd ap4: 36.6 cm2 LAV(MOD-bp) Indexed: 29.4 ml/m2 LVLd ap4: 8.6 cm LAV(MOD-sp2): 67.1 ml EDV(MOD-sp4): 124.8 ml LAV(MOD-sp4): 53.1 ml EDV(sp4-el): 132.2 ml LVAs ap4: 27.5 cm2 LVLs ap4: 8.0 cm ESV(MOD-sp4): 75.3 ml ESV(sp4-el): 80.4 ml EF(MOD-sp4): 39.7 % EF(sp4-el): 39.2 % SV(sp4-el): 51.8 ml LA A4 area: 20.1 cm2 RA A4 area: 19.6 cm2 Time Measurements MV dec time: 0.20 sec Doppler Measurements Calculations MV E max sameer: 63.4 cm/sec Lat Peak E' Sameer: 5.9 cm/sec Med Peak E' Sameer: 2.1 cm/sec MV A max sameer: 67.6 cm/sec E/E' lat: 10.8 E/E' med: 29.8 MV E/A: 0.94 MV V2 max: 71.8 cm/sec MV P1/2t max sameer: 63.7 cm/sec Ao V2 max: 102.2 cm/sec MV max P.1 mmHg MV P1/2t: 170.9 msec Ao max P.2 mmHg MV V2 mean: 42.3 cm/sec MV dec slope: 109.3 cm/sec2 MV mean P.82 mmHg MV V2 VTI: 35.7 cm MVA(P1/2t): 1.3 cm2 AI max sameer: 330.0 cm/sec LV V1 max: 86.8 cm/sec MR max sameer: 429.7 cm/sec AI max P.6 mmHg LV V1 max P.0 mmHg MR max P.8 mmHg AI dec slope: 108.6 cm/sec2 MR mean sameer: 298.4 cm/sec AI P1/2t: 890.3 msec MR mean P.2 mmHg MR VTI: 177.2 cm PA V2 max: 76.4 cm/sec ECHO/Echo Complete Interpretation Summary Normal LV size. The estimated ejection fraction is 35 %. Moderate concentric left ventricular hypertrophy. There is moderate global hypokinesis of the left ventricle. Mild (1+) eccentric mitral valve insufficiency. Trivial aortic valve insufficiency. Small pericardial effusion. Compared to previous study, the left ventricular systolic function is the same.. _ Ordering Physician: Masha Glaser Referring Physician: Joelle Stern Performed By: Raghav Kraus RCS 04/12/22 1230 Date Damion Vu MD CC: MAURICIO Glaser; Dr. Joelle Stern MD Date Dictated: 04/12/22 1011 Date Transcribed: 04/12/22 1230 Inspector Circuitry Negative: Signed Joelle Stern MD Work Phone: Start: 04-04-2022 End: 04-04-2022 Cardiology Visit Report Comments: See Note; NOTES: [facility] [address] [place] [address]. [address] [place] [address] OFFICE VISIT Date of Service: 04/04/22 MR#: [id number] Acct: [id number] Name: BERNY INFANTE Rep #: [id number] : 1940 Provider: MAURICIO martinez Age/Sex: 82/M [place] [facility] Status: Signed [facility] HPI History of Present Illness Details: This is a pleasant 82-year-old man who presents to the office today for a cardiovascular follow up. He was seen in the office 12/16/21 for fatigue and shortness of breath over the last 2 to 3 months, decreased appetite with weight gain. In August 2021, he underwent stress testing where he exercised 7 metabolic equivalents with no evidence of ischemia. He however was noted to have a mild cardiomyopathy on his nuclear imaging. His EKG had demonstrated a sinus rhythm with a left bundle branch block. A follow-up echocardiogram performed 11/2020 demonstrated moderate concentric left ventricular hypertrophy, stage III diastolic dysfunction, moderate global hypokinesis, estimated ejection fraction of 35% and a small pericardial effusion with no tamponade physiology. He saw his PCP in the office 12/15/21, and had some blood work done which was noted to be mildly abnormal beta natruretic peptide level which was elevated, Covid which was negative, and a high-sensitivity troponin which was noted to be elevated. His creatinine was also elevated. His TSH was normal. Patient underwent a cardiac catheterization on 12/17/2021 which demonstrated non obstructive coronary arteries. He denies chest, arm, jaw, or neck discomfort. He denies symptoms of shortness of breath with exertion, shortness of breath at rest, orthopnea, PND, sudden weight gain, or bilateral lower extremity edema. He denies chronic cough. He denies palpitations, lightheadedness, near syncope, or syncopal episodes. He denies claudication issues. He states dizziness, most notably with position changes. This improved with stopping Farxiga. He denies fever or chills. He denies blood in urine, blood in stool, or epistaxis. He denies myalgia. He denies unexplainable fatigue. His exercise tolerance is stable. 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 Required: No Accompanied by: None Is patient in pain?: No Allergies iodine Allergy (Verified 04/04/22 08:42) Shortness of breath Medications celecoxib 200 mg PO DAILY 07/31/17 [History Confirmed 04/04/22] folic acid 1 mg PO BID 10/11/21 [History Confirmed 04/04/22] potassium citrate 10 meq PO BID 10/11/21 [History Confirmed 04/04/22] vitamin B complex 1 cap PO BID 10/11/21 [History Confirmed 04/04/22] rosuvastatin 20 mg tablet 20 mg PO DAILY tab 12/16/21 [History Confirmed 04/04/22] carvedilol 3.125 mg PO BID #90 tab 12/17/21 [Rx Confirmed 04/04/22] lisinopril 5 mg PO DAILY #90 tab 12/17/21 [Rx Confirmed 04/04/22] furosemide 40 mg tablet 20 mg PO DAILY #90 tab 02/14/22 [Rx Confirmed 04/04/22] fluoxetine 40 mg capsule 40 mg PO DAILY cap 04/04/22 [History Confirmed 04/04/22] zolpidem 12.5 mg tablet,extended release,multiphase 12.5 mg PO QHS tab 04/04/22 [History Confirmed 04/04/22] Ejection fraction %: 35 to 39 PFSH Medical History Depression History of hay fever Left bundle branch block (LBBB) Left ventricular diastolic dysfunction LVH (left ventricular hypertrophy) Non-ischemic cardiomyopathy Obstructive sleep apnea Prostate cancer Surgical History History of left heart catheterization (12/17/21) History of prostate surgery History of total bilateral knee replacement Hx of appendectomy Social History Smoking Status: Never smoker alcohol intake: current alcohol intake frequency: 0-2 drinks per day Alcohol type: beer, wine and hard liquor details: 1 drink per night substance use type: does not use caffeine: Yes Type: coffee Number of servings: 2 ROS Const Const: Positive for frequent falls (a couple times related to dizziness from standing up too quickly); Negative for fatigue, weakness or headache(s) Eyes Eyes: Negative for blurry vision or double vision ENT ENT: Positive for dizziness and balance problems (Related to dizziness); Negative for headache(s) or Nosebleed/epistaxis Cardio Chest Pain: No Palpitations: No Edema: None Muscle aches with walking: None Resp Respiratory: Negative for SOB with activity, SOB at rest, SOB orthopnea SOB lying down, Cough or paroxysmal nocturnal dyspnea GI GI: Negative nausea, vomiting, bloating or black,tarry stools : Negative for hematuria Musc Musc: Positive for balance problems (Related to dizziness); Negative for muscle aches/ myalgia or joint pain Neuro Neuro: Positive for dizziness, orthostatic symptoms and frequent falls (a couple times related to dizziness from standing up too quickly); Negative for lightheadedness, near syncope, syncope, headache(s), weakness, blurry vision or double vision Endo Endo: Negative for fatigue Cardiology Exam Const Appearance: cooperative, healthy appearing, comfortable and no acute distress Nutritional Appearance: well nourished and overweight Orientation: alert, awake and oriented x3 Head Head: normal to inspection Ears: hearing grossly normal bilaterally Nose: external nose normal Face and Sinus: face symmetric Mouth: oral mucosae normal Eyes General: appearance normal, both eyes and all related structures Eyelids: eyelids normal EOM: EOM intact bilaterally Neck Neck: normal visual inspection and no JVD Carotids: normal carotid upstroke Chest Chest inspection: normal inspection of the chest, symmetric chest movement and normal respiratory effort; Negative cough Auscultation: Bilateral: Clear to Auscultation Cardio Rate: regular rate Rhythm: regular rhythm Heart sounds: S1 normal and S2 normal; Negative rub, gallop or murmur GI GI: normal to inspection Neuro General: patient alert, patient awake, patient oriented x3 and CN's II-XI intact bilaterally Skin Skin: no rashes or lesions noted Extremities Pulses: Normal: Right Posterior Tibial Pulse, Left Posterior Tibial Pulse, Right Radial Pulse and Left Radial Pulse Lower Extremity Edema: None: Bilateral Psych Psychological: normal affect Supplemental Info Supplemental Information Cardiac Catheterization 12/17/2021: PROCEDURE(S) PERFORMED DC02-([id number])[facility] INDICATIONS Indications: Suspected CAD Heart Failure: NYHA Class: 3 Stress/Imaging Date: CAD Presentations: Symptom unlikely to be ischemic. CONCLUSIONS Non obstructive coronary arteries Cardiomyopathy: Dilated Cardiomyopathy: Congestive RECOMMENDATIONS Medical therapy DESCRIPTION OF PROCEDURE The patient arrived to the procedure lab. The risks and benefits of the procedure as well as a full description of our services here and current unavailability of surgical backup were fully explained to the patient and/or their significant other prior to the catheterization. The Timeout was completed, verifying the correct patient and procedure. The patient's procedural site was prepped and draped in the usual fashion. Local anesthetic was given subcutaneously to right radial region with Lidocaine 2%. Using a modified Seldinger technique, arterial access was obtained via the right radial artery, a 6Fr sheath was inserted. Left Coronary Artery selective angiography was performed in multiple views using a 5 Fr. 4.0 Hornsby catheter. Right Coronary Artery selective angiography was then performed in multiple views using a 5 Fr. 4.0 Hornsby catheter. LV to AO pullback pressures were then recorded.The arterial sheath was pulled and a TR Band was applied for hemostasis CORONARY ANGIOGRAPHY DOMINANCE: Right Dominant LEFT HEART ASSESSMENT Left Ventricular Ejection Fraction: by Echo 35 % Global Hypokinesis - Moderate Depressed Left Ventricular systolic function LEFT MAIN: Angiographically normal LEFT ANTERIOR DESCENDING ARTERY: No significant disease noted CIRCUMFLEX ARTERY: No significant disease noted RIGHT CORONARY ARTERY: No significant disease noted ECHOCARDIOGRAM 12/13/2021 Interpretation Summary Normal LV size. Moderate concentric left ventricular hypertrophy. The estimated ejection fraction is 35 %. There is moderate to severe global hypokinesis of the left ventricle. Small pericardial effusion. Mild (1+) eccentric mitral valve insufficiency. Stage 3 diastolic dysfunction. Pulmonary artery systolic pressure is 34 mmHg. Stress Test Report 09/13/2021 Exercise myocardial perfusion stress test. 81-year-old man with a history of chest pain. Stress protocol: Resting EKG demonstrates normal sinus rhythm with a rate of 82 bpm and incomplete left bundle branch block noted. Resting blood pressure is 128/84 mmHg. The patient exercised according to the regular Yandel protocol for a total duration of 5 minutes. Patient completed 2 minutes into stage II of the Yandel protocol. The maximum heart rate attained was 114 bpm which was 82% of maximum predicted heart rate the maximum workload was 7 metabolic equivalents. At rest there were no ST or T wave changes noted to suggest ischemia nonspecific ST changes were noted though the patient experienced slight pressure in the lower part of the chest. The test was terminated due to dyspnea. Myocardial perfusion protocol. 11.7 mCi of technetium 99m sestamibi was injected at rest. Patient exercised according to regular Yandel protocol for 5 minutes and at peak exercise 33.3 mCi of technetium 99m sestamibi was injected stress images were obtained stress and rest images were reconstructed and compared in the short axis vertical long and horizontal long axis. Gated images were also obtained. Perfusion SPECT analysis: Review of the stress images demonstrate normal uptake of tracer noted in all areas of the myocardium. The resting images similarly demonstrate normal uptake of tracer noted in all areas of the myocardium. No areas of reversibility are noted to suggest ischemia and no previous infarct is noted. Gated SPECT analysis: The gated ejection fraction is 34%. 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 No evidence of ischemia noted at a moderate workload. Labs: No Data to Display Diagnostics: Electrocardiogram Echocardiogram Stress Test NM Stress Test Cardiac Catheterization Pulmonary: No Data to Display Assessment and Plan Assessment and Plan (1) Non-ischemic cardiomyopathy: Status: Chronic Plan - Gal Bryant MOLD CLEANER, MOLD CLEANER-C: Patient's echocardiogram on 12/13/2021 showed ejection fraction 35% and stage III diastolic dysfunction. His heart catheter on 12/17/2021 showed nonobstructive coronary artery disease. At last office visit he was started on Farxiga therapy. He did not tolerate this on account of orthostatic changes as well as worsening dizziness. The symptoms have improved since stopping. He will continue with Coreg 3.125 mg p.o. twice daily. He will continue with lisinopril 5 mg p.o. daily. We will not advance Coreg or lisinopril on account of lower blood pressure reading. We will await results of echocardiogram for further input. If his ejection fraction remains 35% or below, will consider preventative ICD. He was encouraged to continue to follow with sleep apnea treatment. (2) Left bundle branch block (LBBB): Status: Acute Plan - Gal Bryant MOLD CLEANER, MOLD CLEANER-C: He will continue current medical therapy, which includes Coreg 3.125 mg p.o. twice daily. (3) Hyperlipidemia: Status: Chronic Plan - Gal Bryant NP, MOLD CLEANER-C: This is being monitored by primary care physician. His most recent heart catheterization in November 2021 showed nonobstructive coronary artery disease. He will continue with Crestor 20 mg p.o. daily. Plan Details Additional Comments: Thank you for allowing me to participate in the care of your patient. Please don't hesitate to call if any issues arise. This note was generated using a voice recognition system and there may be incorrect words, spelling, or punctuation that were not noted when reviewing the office note prior to saving. Follow Up: 3-4 Months (MOLD CLEANER/PA) Keep as is (BUTCHER SUPERVISOR) Coding Level of Care Code Off vis,est,level 3 Diagnoses Non-ischemic cardiomyopathy I42.8 Left bundle branch block (LBBB) I44.7 Hyperlipidemia E78.5 Coding Level of Care Code Off vis,est,level 3 Diagnoses Non-ischemic cardiomyopathy I42.8 Left bundle branch block (LBBB) I44.7 Hyperlipidemia E78.5 04/04/22 0925 <Electronically signed by Gal Bryant NP MOLD CLEANER-C> Date Gal Bryant NP MOLD CLEANER-C Cosigner Signature: Date (if applicable) CC: Dr. MD Joelle Arango MD Work Phone: Start: 02-18-2022 End: 02-18-2022 PT D/C Summary (1) Comments: See Note; NOTES: [facility] [address] [place] [address] / REHABILITATION SERVICES DISCHARGE SUMMARY MR#: [id number] Acct: [id number] Name: BERNY INFANTE Rep #: [id number] : 1940 81 From: Ryley Mccoy DPT, OCS, CSCS Referring Dr.: Dr. Joelle Stern MD Status: REG RCR Insurance: [facility] SEE NOTE SELF PAY INSURANCE It has been my pleasure to treat BERNY INFANTE referred by Dr. Joelle Stern MD, with the diagnosis of DDD, back pain for a total of 10 visit(s). Discharge Date: 02/18/22 Please see the following information for a summary of their discharge status. Subjective: I am able to do yard work. Enjoying fly fish. Doing a little better than 4 weeks ago. Feels like the machines are the answer to his weakness and fatigue. Not in a lot of pain, gets LBP intermittently and it is improving. Can walk further before it starts to hurt. Much better after resting for 30 seconds. Will do ex on his own 3x/week as he is member and lives close by. To doctor next month. L LB Pain Intensity (Out of 10): 0 % Improvement: 50 Objective/Function: Good ROM LB without pain today. Pt moving and walking well and without pain. Happy with progress and feels he can continue on his own in gym. Goal 1:: Walk one mile without pain Goal Progress: Goal Met, tires easily. Goal 2:: I approp gym based ex program to limit future problems. Goal Progress: Goal Met Goal 3:: oswestry 5 or less. Goal Progress: Not Progressing Plan: d/c to gym program Discharge Comments: Pt to continue on his own as member at with instructed gym ex and HEP for stretches. If there are questions or concerns regarding this patient's physical therapy, please feel free to call me at [phone]. Thank you for the referral of this patient. Sincerely, Rlyey Mccoy, DPT, OCS, CSCS Balance/Gait/Functional tests - Balance/Special Test Scores Functional Gait Assessment Score: 27 % Disability: 10.0000 Oswestry Low Back Score: 16 <Electronically signed by Ryley Mccoy DPT, OCS, CSCS> 02/18/22 0920 CC: Dr. Joelle Stern MD EBG Signed Joelle Stern MD Work Phone: Start: 02-11-2022 End: 02-11-2022 Pulmonary Visit Report Comments: See Note; NOTES: [facility] of [address] [place] [address] OFFICE VISIT Date of Service: 02/11/22 MR#: [id number] Acct: [id number] Name: BERNY INFANTE Rep #: [id number] : 1940 Provider: MAURICIO Hurtado Age/Sex: 81/M [place] [facility] Status: Signed Assessment and Plan Assessment and Plan (1) Obstructive sleep apnea: Status: Acute Orders: Orders: Self Mgmnt Educ Training Today Plan - Shantal Hurtado MOLD CLEANER, MOLD CLEANER-C: Deteriorated. There has been some concern that his sleep apnea was suboptimally managed, and he had a cardiac event. He did complete a titration study. It has been recommended that he now be treated with a bipap. He has already been set up but has not been using it much. He was educated on the risk of suboptimal management of his sleep apnea and the importance of trial of the Bipap as ordered. He is willing to try the new machine. He will follow up with Dr Kaminski in 3 months. He has been instructed to call the office with any difficulty acclimating to the new settings in the meantime. (2) HFrEF (heart failure with reduced ejection fraction): Status: Acute Plan - Shantal Hurtado NP, MOLD CLEANER-C: Complicates exam, plan, care and prognosis. Plan Details Follow Up: 3 Months (BWA) HPI Sleep concern Chief Complaint: establish pap care HPI Comments Details: This patient presents to the office today for initial consultation regarding concern for obstructive sleep apnea. He is ambulatory and on room air. He was diagnosed with sleep apnea 7 years ago and has been using an autopap since then. He recently had a silent VT and because of that he has been going through an intense work up. He has an echo and stress test next week. He was recently diagnosed with heart failure and started on 4 new cardiac medications. He has been snoring through the autopap. He has never really felt more rested on the autopap. He admits to skipping the machine occasionally and doesn't feel less rested. He does admit to napping daily. He also admits to nodding off while watching TV, typically occurring after lunch. He has 1 episode of nocturia nightly. He is retired. 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 He has never seen a 911 operator. Never been prescribed an inhaler. He was diagnosed with asthma as a child but outgrew that. He is a lifelong never smoker. Past medical family history: Mother age 67 of breast cancer. Father lived to the age of 88 he had a Parkinson's-like disorder called progressive nuclear palsy. Sister at age of 78 after an accidental fall. He has 2 children, son suffers from frequent kidney stones and daughter has seasonal allergies. He denies any difficulty with shortness of breath. He denies any cough, sputum production or hemoptysis. He has not had any wheezing, chest tightness, chest pain or palpitations. He also denies any fever, chills or body aches. Test results personally reviewed with the patient: Polysomnogram interpretation report with Pap titration completed on January 25, 2022. Interpretation is obstructive sleep apnea. Recommendation is to treat the patient with a BiPAP of 19/15 cm of water. Compliance report for the past 30 days shows 97% compliance with average use of 6 hours and 4 minutes. Current setting is 8 to 20 cm of water with average pressures being utilized 13.4 to 18.3 cm water. Residual AHI 1.4 events per hour and leaks do not appear to be a consistent issue. Intake Vital Signs 02/11/22 13:08 Height 5 ft 11 in Weight: 186 lb BMI 25.9 BP 94/56 L Blood Pressure Location Lt brachial Position Sitting Respiration 18 Pulse 74 Pulse Source Monitor Temp 97.0 F L Temperature Source Temporal Artery Pulse Oximetry (%) 97 Oxygen Delivery Method room air Intake Visit Reasons: Sleep problems DME Vendor: Debbie Allergies iodine Allergy (Verified 02/11/22 13:10) Shortness of breath Medications celecoxib 200 mg PO DAILY 07/31/17 [History Confirmed 02/11/22] duloxetine 20 mg PO BID 07/31/17 [History Confirmed 02/11/22] folic acid 1 mg PO BID 10/11/21 [History Confirmed 02/11/22] potassium citrate 10 meq PO BID 10/11/21 [History Confirmed 02/11/22] vitamin B complex 1 cap PO BID 10/11/21 [History Confirmed 02/11/22] zolpidem [Ambien] 10 mg PO QHS 10/11/21 [History Confirmed 02/11/22] rosuvastatin 20 mg tablet 20 mg PO DAILY tab 12/16/21 [History Confirmed 02/11/22] carvedilol 3.125 mg PO BID #90 tab 12/17/21 [Rx Confirmed 02/11/22] furosemide 40 mg PO DAILY #90 tab 12/17/21 [Rx Confirmed 02/11/22] lisinopril 5 mg PO DAILY #90 tab 12/17/21 [Rx Confirmed 02/11/22] dapagliflozin 5 mg tablet 5 mg PO DAILY #90 tab 01/17/22 [Rx Confirmed 02/11/22] PFSH Medical History (Updated 02/11/22 @ 13:47 by Shantal Hurtado MOLD CLEANER, MOLD CLEANER-C) Depression History of hay fever Left bundle branch block (LBBB) Left ventricular diastolic dysfunction LVH (left ventricular hypertrophy) Non-ischemic cardiomyopathy Obstructive sleep apnea Prostate cancer Surgical History History of left heart catheterization (12/17/21) History of prostate surgery History of total bilateral knee replacement Hx of appendectomy Social History Smoking Status: Never smoker alcohol intake: current details: social substance use type: does not use Review of Systems Resp Respiratory: Yes as per HPI Exam Const Constitutional: Positive conversant, cooperative, in no acute respiratory distress, healthy appearing, well developed, well nourished and good hygiene Eyes Eye: Positive clear conjunctiva; Negative scleral abnormality Ears Ear: Positive external ears normal; Negative hearing normal or hard of hearing Neck Neck: Positive normal visual inspection, full ROM and trachea midline Chest Wall Chest: Positive normal inspection of the chest and symmetric chest movement; Negative increased A/P diameter Resp lung sounds: Positive clear to auscultation, good air exchange, normal expiratory time and normal respiratory effort; Negative diminished lung sounds, wheezes, wheeze present on forced exhalation, rhonchi, rales or dullness Cardio Cardiac: Positive regular rate, regular rhythm, S1 normal, S2 normal and normal PMI; Negative murmur GI GI: Positive normal to inspection; Negative distended Genitourinary: Positive deferred Musc Musculoskeletal: Positive steady gait and ROM normal; Negative kyphosis or scoliosis Skin Pulmonary Skin Exam: Positive intact; Negative lesion, rash or ulcers Neuro Neurologic: Yes conversant Psych Appearance: Positive grossly normal, eye contact and well kempt Mental Status: Positive mental status grossly normal Affect: Positive normal affect Coding Level of Care Code Off vis,new,level 3 Diagnoses Obstructive sleep apnea G47.33 HFrEF (heart failure with reduced ejection fraction) I50.20 02/11/22 1554 <Electronically signed by Shantal Hurtado NP MOLD CLEANER-C> Date Shantal Hurtado NP MOLD CLEANER-C Cosigner Signature: Date (if applicable) CC: MD Joelle Segura MD Work Phone: Start: 01-28-2022 End: 01-28-2022 Inital Evaluation (1) - PT Comments: See Note; NOTES: [facility] [address] [place] [address]. [address] [place] [address] / REHABILITATION SERVICES INITIAL EVALUATION MR#: [id number] Acct: [id number] Name: BERNY INFANTE Rep #: [id number] : 1940 81 From: Ryley Mccoy DPT, OCS, CSCS Referring Dr.: Dr. Joelle Stern MD Status: REG [facility] Insurance: [facility] SEE NOTE SELF PAY INSURANCE Patient's Visit Information BERNY INFANTE is a 81 year old M referred to Physical Therapy by Dr. Joelle Stern MD with a diagnosis of DDD, back pain. Date of Evaluation: 01/28/22 Physical Therapist: Ryley Mccoy DPT, OCS, CSCS - Visit Plan Frequency: 3x /Week Duration: 4-6 Weeks Plan: 3x/week for 4-6 weeks for. 1. NS based PPT core strength mat to gym. 2. rollout and stretch quad and HS and teach for HEP. 3. core strength. 4. when back better, return to gym based general strength program, montior tolerance with pain. - Subjective Had PT for LB and got I in workout laate last year. L LB started hurting shortly after and doc sent to ER. Gave shot of morphine and it did not help. Could not sleep at home. But when he finally got to sleep after 6 hours it went away. Had intermittent pain for the remainder of the year and was not feeling energetic. Had bettery of blood tests, EKG, stress test etc and has CHF according to patient and put on a bunch of vitamins. Then was told he had a VT at some point. Back pain persists, takes a pill a day for antiinflammatory which helps a little bit. Chronic back pain usually goes awy but this one is not. Walks dog and gets 100 yards without pain then incline brings on L LB. Sitting pain goes away. Only present standing or walking. No leg symptoms. Sleeping is OK. Activities at home outside of longer walks are close to normal. Cleaning fish tank with buckets water can hurt. Stopped mowing lawn. Can still fly fish if doesn't have to walk more than 100 yards to spot. Exercises have not continued. - Pain L LB Pain Intensity (Out of 10): 0 Pain Intensity Range: 0, 7 - Objective Walks slightly hunched over and slow but I. Trasnfers slow but I. Steps reciprocal with one rail. Upper legs and LB very stiff. HS and quads max tight 90/90 test at -45. L/s AROM, ext max limited, SB mod deficit, flexion mod limited. Painful extension. - slump and - SLR. reflexes 2/3 patella and achilles. sensation LE WNL to gross light touch. Strength in LE is symmetrical and no myotomal weaknesses. pelvic motion movement is minimal and stiff, default is anteriorly tilted. - Balance/Special Test Scores Functional Gait Assessment Score: 27 % Disability: 10.0000 Oswestry Low Back Score: 10 - Goals Goal 1:: Walk one mile without pain Goal Time Frame: 4-6 Weeks Goal 2:: I approp gym based ex program to limit future problems. Goal Time Frame: 4-6 Weeks Goal 3:: oswestry 5 or less. Goal Time Frame: 4-6 Weeks - Rehabilitation Potential Physical Therapy Diagnosis: Pain in back limiting walking distance Rehabilitation Potential: Fair - Anticipated Interventions Patient/Client Instruction: Educate patient on: Condition, Plan of Care For the Purpose of:: To decrease pain, To increase ROM, To improve muscle performance and motor function, To increase tolerance to activity/condition/position, To improve ability of physical actions for home/community/work/leisure Therapeutic Exercise to Include: Strength training, Postural training, Flexibilty training, Passive ROM, Active ROM, Dynamic Lumbar Stabilization For the Purpose of:: To decrease pain, To increase ROM, To improve muscle performance and motor function, To increase tolerance to activity/condition/position, To improve ability of physical actions for home/community/work/leisure Manual Therapy Techniques to Include: Passive ROM, Soft tissue mobilization For the Purpose of:: To decrease pain, To increase ROM Thermo therapy (hot pack): Yes For the Purpose of:: To improve nutrient delivery to tissue Thank you for the opportunity to evaluate your patient. For Medicare and Medicare HMO plans, please review the plan of care and approve it. It will need to be FAXED BACK to us at [phone] for Medicare purposes. For Medicare only, by signing this I certify the plan of care. Please let me know if there are questions or concerns regarding this plan of care. Physician Signature: ___Date: <Electronically signed by Ryley Mccoy DPT, OCS, CSCS> 01/28/22 0956 CC: Dr. Joelle Stern MD EBG Signed Joelle Stern MD Work Phone: Start: 01-03-2022 End: 01-16-2022 Cardiology Visit Report Comments: See Note; NOTES: [facility] [address] [place] [address] OFFICE VISIT Date of Service: 01/03/22 MR#: [id number] Acct: [id number] Name: BERNY INFANTE Rep #: [id number] : 1940 Provider: MAURICIO sanders Age/Sex: 81/M Location: [facility] Status: Signed HPI HPI History of Present Illness Details: This is a pleasant 81-year-old man who presents to the office today for a cardiovascular follow up. He was seen in the office 12/16/21 for fatigue and shortness of breath over the last 2 to 3 months, decreased appetite with weight gain. In August 2021, he underwent stress testing where he exercised 7 metabolic equivalents with no evidence of ischemia. He however was noted to have a mild cardiomyopathy on his nuclear imaging. His EKG had demonstrated a sinus rhythm with a left bundle branch block. A follow-up echocardiogram performed 11/2020 demonstrated moderate concentric left ventricular hypertrophy, stage III diastolic dysfunction, moderate global hypokinesis, estimated ejection fraction of 35% and a small pericardial effusion with no tamponade physiology. He saw his PCP in the office 12/15/21, and had some blood work done which was noted to be mildly abnormal for a natruretic peptide level which was elevated, Covid which was negative, and a high-sensitivity troponin which was noted to be elevated. His creatinine was also elevated. His TSH was normal. Patient underwent a cardiac catheterization on 12/17/2021 which demonstrated non obstructive coronary arteries. From a cardiac standpoint, the patient is doing well. He states he feels a lot better. His accompanies him to his visit. He denies any palpitations, chest pain, pressure or heaviness. He denies SOB, Orthopnea, and PND. He does wear a CPAP nightly. He does not have bleeding issues; no blood in urine, stool or nosebleeds. He denies any decrease in energy level, myalgias, or claudication. He does not have edema, or sudden weight gain. He denies dizziness, lightheadedness, syncopal or near syncopal episodes, and headaches. Intake Vital Signs 01/03/22 15:05 Height 5 ft 11 in Weight: 188 lb 4 oz BMI 26.2 BP 99/66 Blood Pressure Location Lt brachial Position Sitting Respiration 18 Pulse 74 Pulse Source Monitor Pulse Oximetry (%) 96 Oxygen Delivery Method room air Intake Visit Reasons: 3 week fu Allergies iodine Allergy (Verified 01/03/22 15:03) Shortness of breath Medications celecoxib 200 mg PO DAILY 07/31/17 [History Confirmed 01/03/22] duloxetine 20 mg PO BID 07/31/17 [History Confirmed 01/03/22] folic acid 1 mg PO BID 10/11/21 [History Confirmed 01/03/22] potassium citrate 10 meq PO BID 10/11/21 [History Confirmed 01/03/22] vitamin B complex 1 cap PO BID 10/11/21 [History Confirmed 01/03/22] zolpidem [Ambien] 10 mg PO QHS 10/11/21 [History Confirmed 01/03/22] rosuvastatin 20 mg tablet 20 mg PO DAILY tab 12/16/21 [History Confirmed 01/03/22] carvedilol 3.125 mg PO BID #90 tab 12/17/21 [Rx Confirmed 01/03/22] furosemide 40 mg PO DAILY #90 tab 12/17/21 [Rx Confirmed 01/03/22] lisinopril 5 mg PO DAILY #90 tab 12/17/21 [Rx Confirmed 01/03/22] dapagliflozin 5 mg tablet 5 mg PO DAILY #90 tab 01/03/22 [Rx Confirmed 01/03/22] [facility] Medical History Depression History of hay fever Left bundle branch block (LBBB) Left ventricular diastolic dysfunction LVH (left ventricular hypertrophy) Non-ischemic cardiomyopathy Obstructive sleep apnea Prostate cancer Surgical History History of left heart catheterization (12/17/21) History of prostate surgery History of total bilateral knee replacement Hx of appendectomy Social History Smoking Status: Never smoker alcohol intake: current details: social substance use type: does not use ROS Const Const: Negative for fatigue, weakness, fever(s), headache(s), chills, frequent falls, weight gain or weight loss Eyes Eyes: Negative for blind spots, loss of peripheral vision, transient loss of vision, blurry vision, change in vision, double vision, floaters or tunnel vision ENT ENT: Negative for headache(s), dizziness, Nosebleed/epistaxis, balance problems or neck pain Cardio Chest Pain: No Palpitations: No Edema: None Muscle aches with walking: None Resp Respiratory: Negative for SOB with activity, SOB at rest or SOB orthopnea SOB lying down GI GI: Negative nausea, vomiting, heartburn, bloating, vomiting blood/hematemesis, bright, red blood in stools or black,tarry stools Musc Musc: Negative for muscle aches/ myalgia, muscle weakness, joint pain or balance problems Neuro Neuro: Negative for dizziness, lightheadedness, near syncope, syncope, orthostatic symptoms, frequent falls, headache(s), weakness, blurry vision or double vision Billy Hematologic/Lymphatic: Negative for easy bleeding or easy bruising Endo Endo: Negative for fatigue Cardiology Exam Const Appearance: cooperative and no acute distress Orientation: alert and oriented x3 Head Head: normal to inspection Ears: hearing grossly normal bilaterally Nose: external nose normal Face and Sinus: face symmetric Eyes General: appearance normal, both eyes and all related structures Eyelids: eyelids normal Conjunctivae: conjunctivae normal Pupils: PERRL and pupil size EOM: EOM intact bilaterally Neck Neck: normal visual inspection Carotids: Negative bruit Chest Chest inspection: normal inspection of the chest and normal respiratory effort Auscultation: Bilateral: Clear to Auscultation Cardio Palpation: normal PMI Rate: regular rate Rhythm: regular rhythm Heart sounds: S1 normal and S2 normal; Negative rub, gallop or murmur GI GI: normal to inspection and soft; Negative no hepatosplenomegaly Neuro General: patient alert, patient oriented x3 and CN's II-XI intact bilaterally Skin Skin: no rashes or lesions noted Extremities Pulses: Normal: Right Posterior Tibial Pulse, Left Posterior Tibial Pulse, Right Radial Pulse and Left Radial Pulse Lower Extremity Edema: None: Bilateral Psych Psychological: normal affect Supplemental Info Supplemental Information Cardiac Catheterization 12/17/2021: PROCEDURE(S) PERFORMED DC02-([id number])[facility] CLINICAL PROFILE AND INDICATIONS Indications: Suspected CAD Heart Failure: NYHA Class: 3 Stress/Imaging Date: CAD Presentations: Symptom unlikely to be ischemic. CONCLUSIONS Non obstructive coronary arteries Cardiomyopathy: Dilated Cardiomyopathy: Congestive RECOMMENDATIONS Medical therapy DESCRIPTION OF PROCEDURE The patient arrived to the procedure lab. The risks and benefits of the procedure as well as a full description of our services here and current unavailability of surgical backup were fully explained to the patient and/or their significant other prior to the catheterization. The Timeout was completed, verifying the correct patient and procedure. The patient's procedural site was prepped and draped in the usual fashion. Local anesthetic was given subcutaneously to right radial region with Lidocaine 2%. Using a modified Seldinger technique, arterial access was obtained via the right radial artery, a 6Fr sheath was inserted. Left Coronary Artery selective angiography was performed in multiple views using a 5 Fr. 4.0 Hornsby catheter. Right Coronary Artery selective angiography was then performed in multiple views using a 5 Fr. 4.0 Hornsby catheter. LV to AO pullback pressures were then recorded.The arterial sheath was pulled and a TR Band was applied for hemostasis CORONARY ANGIOGRAPHY DOMINANCE: Right Dominant LEFT HEART ASSESSMENT Left Ventricular Ejection Fraction: by Echo 35 % Global Hypokinesis - Moderate Depressed Left Ventricular systolic function LEFT MAIN: Angiographically normal LEFT ANTERIOR DESCENDING ARTERY: No significant disease noted CIRCUMFLEX ARTERY: No significant disease noted RIGHT CORONARY ARTERY: No significant disease noted ECHOCARDIOGRAM 12/13/2021 Interpretation Summary Normal LV size. Moderate concentric left ventricular hypertrophy. The estimated ejection fraction is 35 %. There is moderate to severe global hypokinesis of the left ventricle. Small pericardial effusion. Mild (1+) eccentric mitral valve insufficiency. Stage 3 diastolic dysfunction. Pulmonary artery systolic pressure is 34 mmHg. Stress Test Report 09/13/2021 Exercise myocardial perfusion stress test. 81-year-old man with a history of chest pain. Stress protocol: Resting EKG demonstrates normal sinus rhythm with a rate of 82 bpm and incomplete left bundle branch block noted. Resting blood pressure is 128/84 mmHg. The patient exercised according to the regular Yandel protocol for a total duration of 5 minutes. Patient completed 2 minutes into stage II of the Yandel protocol. The maximum heart rate attained was 114 bpm which was 82% of maximum predicted heart rate the maximum workload was 7 metabolic equivalents. At rest there were no ST or T wave changes noted to suggest ischemia nonspecific ST changes were noted though the patient experienced slight pressure in the lower part of the chest. The test was terminated due to dyspnea. Myocardial perfusion protocol. 11.7 mCi of technetium 99m sestamibi was injected at rest. Patient exercised according to regular Yandel protocol for 5 minutes and at peak exercise 33.3 mCi of technetium 99m sestamibi was injected stress images were obtained stress and rest images were reconstructed and compared in the short axis vertical long and horizontal long axis. Gated images were also obtained. Perfusion SPECT analysis: Review of the stress images demonstrate normal uptake of tracer noted in all areas of the myocardium. The resting images similarly demonstrate normal uptake of tracer noted in all areas of the myocardium. No areas of reversibility are noted to suggest ischemia and no previous infarct is noted. Gated SPECT analysis: The gated ejection fraction is 34%. 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 No evidence of ischemia noted at a moderate workload. Labs: No Data to Display Diagnostics: Electrocardiogram Echocardiogram Stress Test NM Stress Test Cardiac Catheterization Pulmonary: No Data to Display Assessment and Plan Assessment and Plan (1) Non-ischemic cardiomyopathy: Status: Acute Orders: Orders: Echo Complete 2 Months Plan: Patient has a history of nonischemic cardiomyopathy. His most recent echocardiogram from 12/13/2021 demonstrates ejection fraction of 35%. He appears stable at this time, and denies any recent symptoms or events. He will continue carvedilol 3.125 twice daily, furosemide 40 mg daily, lisinopril 5 mg daily and will be asked to start Farxiga 5 mg daily. We will obtain an echocardiogram in 2 months to to reevaluate his ejection fraction. An ICD/HEALTH PLAN SPECIALIST-D was discussed with patient, if ejection fraction remains 35% or below. (2) Left bundle branch block (LBBB): Status: Acute Plan: Patient does have a history of left bundle branch block. We will continue to monitor this. (3) Hyperlipidemia: Status: Chronic Plan: Patient has a history of hyperlipidemia. His PCP monitors this. He will continue rosuvastatin 20 mg daily, along with aggressive risk factor and lifestyle modifications. Plan Details Other Medications: New: dapagliflozin (Farxiga) 10 mg PO DAILY 90 tabs 3RF dapagliflozin New Order-5mg PO Daily 5 mg PO DAILY 90 tabs 3RF Other Orders: Orders: Basic Metabolic Profile (BMP) 1 Week I50.20 Additional Comments: Patient will follow up in 3 months, or sooner if needed. Thank you for allowing me to participate in the care of your patient. Please don't hesitate to call if any issues arise. This note was generated using a voice recognition system and there may be incorrect words, spelling, or punctuation that were not noted when reviewing the office note prior to saving. Follow Up: 3 Months (MOLD CLEANER/PA) 12 Months (BUTCHER SUPERVISOR) Coding Level of Care Code Off vis,est,level 4 Diagnoses Non-ischemic cardiomyopathy I42.8 Left bundle branch block (LBBB) I44.7 Hyperlipidemia E78.5 Coding Level of Care Code Off vis,est,level 4 Diagnoses Non-ischemic cardiomyopathy I42.8 Left bundle branch block (LBBB) I44.7 Hyperlipidemia E78.5 01/03/22 1608 <Electronically signed by Masha Glaser NP MOLD CLEANER-C> Date Masha Glaser NP MOLD CLEANER-C 01/16/22 1555<Electronically signed by Damion Vu MD> Cosigner Signature: Date (if applicable) Damion Vu MD CC: MD Joelle Segura MD Work Phone: Start: 12-16-2021 End: 12-16-2021 Cardiology Visit Report Comments: See Note; NOTES: [facility] [address] [place] [address] [address] [place] [address] OFFICE VISIT Date of Service: 12/16/21 MR#: [id number] Acct: [id number] Name: BERNY INFANTE Rep #: [id number] : 1940 Provider: Dr. Damion Vu MD Age/Sex: 81/M Location[place] [facility] Status: Signed HPI HPI History of Present Illness Details: Pleasant 81-year-old man who was sent to see us in consultation. He says that he has been having fatigue and shortness of breath over the last 2 to 3 months. He has also not had a great appetite but has managed to gain weight. He denies any chest pain paroxysmal nocturnal dyspnea or pedal edema but he has had exertional fatigue. You do remember that in August 2021 he underwent stress testing where he exercised 7 metabolic equivalents with no evidence of ischemia. He however was noted to have a mild cardiomyopathy on his nuclear imaging. His EKG had demonstrated a sinus rhythm with a left bundle branch block. A follow-up echocardiogram performed last week demonstrated moderate concentric left ventricular hypertrophy, stage III diastolic dysfunction, moderate global hypokinesis, estimated ejection fraction of 35% and a small pericardial effusion with no tamponade physiology. He had seen you in the office yesterday had some blood work done which was noted to be mildly abnormal for a natruretic peptide level which was elevated, Covid which was negative, and a high-sensitivity troponin which was noted to be elevated. His creatinine was also elevated. His TSH was normal Intake Vital Signs 12/16/21 09:50 Height 5 ft 11 in Weight: 202 lb BMI 28.1 BP 131/91 H Respiration 18 Pulse 94 Pulse Oximetry (%) 96 Intake Visit Reasons: SOB,TIRED,HIGH HR. (BONEZZI) Allergies iodine Allergy (Verified 10/11/21 21:25) Shortness of breath Medications celecoxib 200 mg PO DAILY PRN 07/31/17 [History Confirmed 12/16/21] duloxetine 20 mg PO BID 07/31/17 [History Confirmed 12/16/21] folic acid 1 mg PO BID 10/11/21 [History Confirmed 12/16/21] potassium citrate 10 meq PO BID 10/11/21 [History Confirmed 12/16/21] vitamin B complex [B Complex] 1 cap PO BID 10/11/21 [History Confirmed 12/16/21] zolpidem [Ambien] 10 mg PO QHS 10/11/21 [History Confirmed 12/16/21] rosuvastatin 20 mg tablet 20 mg PO DAILY tab 12/16/21 [History Confirmed 12/16/21] Ejection fraction %: 35 to 39 [facility] Medical History Depression History of hay fever Left bundle branch block (LBBB) Left ventricular diastolic dysfunction LVH (left ventricular hypertrophy) Non-ischemic cardiomyopathy Obstructive sleep apnea Prostate cancer Surgical History History of prostate surgery History of total bilateral knee replacement Hx of appendectomy Social History Smoking Status: Never smoker alcohol intake: current details: social substance use type: does not use ROS Const Const: Positive for weight gain, poor appetite and other (symptoms of SOB,fatigue, decrease in appetite started mid October); Negative for fatigue, weakness, headache(s), frequent falls, difficulty sleeping or excessive sweating Eyes Eyes: Negative for loss of peripheral vision, transient loss of vision, blurry vision, double vision or tunnel vision ENT ENT: Negative for headache(s), dizziness, Nosebleed/epistaxis or balance problems Cardio Chest Pain: No Palpitations: No Edema: None Muscle aches with walking: None Resp Respiratory: Positive for SOB with activity, SOB at rest and crackles (left base); Negative for SOB orthopnea SOB lying down, Cough or paroxysmal nocturnal dyspnea GI GI: Negative nausea, vomiting, heartburn or black,tarry stools : Negative for hematuria Musc Musc: Negative for muscle aches/ myalgia, muscle weakness, joint pain or balance problems Skin Skin: Negative non-healing lesions, rash or unusual bruising Neuro Neuro: Negative for dizziness, lightheadedness, near syncope, syncope, orthostatic symptoms, frequent falls, headache(s), weakness, blurry vision, double vision or lack of coordination Billy Hematologic/Lymphatic: Negative for easy bleeding or easy bruising Endo Endo: Negative for fatigue, excessive sweating or increased thirst/drinking Psych Psych: Negative for anxiety or depression Allergy Allergy/Immunology: Negative for hives and Negative for rash Cardiology Exam Const Appearance: cooperative, healthy appearing, no acute distress, well developed and well groomed Nutritional Appearance: average body habitus and well nourished Orientation: alert, awake and oriented x3 Head Head: normal to inspection, normocephalic and atraumatic Ears: hearing grossly normal bilaterally and external ears normal Nose: external nose normal, nares normal, nasal mucous membranes and turbinates normal, septum normal and no nasal discharge Face and Sinus: face symmetric Mouth: oral mucosae normal, tongue normal, oropharynx normal and moist mucous membranes Teeth and gingiva: dentition normal Throat: posterior oropharynx normal, tonsils normal and uvula midline Eyes General: appearance normal, both eyes and all related structures Eyelids: eyelids normal Conjunctivae: conjunctivae normal Pupils: PERRL, normal by confrontation and accommodation normal EOM: EOM intact bilaterally Neck Neck: normal visual inspection, trachea midline and no JVD JVD: +5 Carotids: normal carotid upstroke and bounding pulses Chest Chest inspection: normal inspection of the chest, symmetric chest movement and normal respiratory effort Auscultation: Bilateral: Clear to Auscultation Cardio Palpation: normal PMI Rate: regular rate Rhythm: regular rhythm Heart sounds: S1 normal, S2 normal and normal, physiologic split S2; Negative rub, gallop or murmur GI GI: normal to inspection, soft, no hepatosplenomegaly and bowel sounds present Neuro General: patient alert, patient awake, patient oriented x3, gait normal, moves all extremities and no focal sensory deficit Skin Skin: no rashes or lesions noted Extremities Pulses: Normal: Right Femoral Pulse, Left Femoral Pulse, Right Dorsalis Pedis Pulse, Left Dorsalis Pedis Pulse, Right Posterior Tibial Pulse, Left Posterior Tibial Pulse, Right Radial Pulse and Left Radial Pulse Lower Extremity Edema: None: Bilateral Musculoskel Musculoskeletal: No joint tenderness Psych Psychological: normal affect Supplemental Info Supplemental Information ECHOCARDIOGRAM 12/13/2021 Interpretation Summary Normal LV size. Moderate concentric left ventricular hypertrophy. The estimated ejection fraction is 35 %. There is moderate to severe global hypokinesis of the left ventricle. Small pericardial effusion. Mild (1+) eccentric mitral valve insufficiency. Stage 3 diastolic dysfunction. Pulmonary artery systolic pressure is 34 mmHg. Stress Test Report 09/13/2021 Exercise myocardial perfusion stress test. 81-year-old man with a history of chest pain. Stress protocol: Resting EKG demonstrates normal sinus rhythm with a rate of 82 bpm and incomplete left bundle branch block noted. Resting blood pressure is 128/84 mmHg. The patient exercised according to the regular Yandel protocol for a total duration of 5 minutes. Patient completed 2 minutes into stage II of the Yandel protocol. The maximum heart rate attained was 114 bpm which was 82% of maximum predicted heart rate the maximum workload was 7 metabolic equivalents. At rest there were no ST or T wave changes noted to suggest ischemia nonspecific ST changes were noted though the patient experienced slight pressure in the lower part of the chest. The test was terminated due to dyspnea. Myocardial perfusion protocol. 11.7 mCi of technetium 99m sestamibi was injected at rest. Patient exercised according to regular Yandel protocol for 5 minutes and at peak exercise 33.3 mCi of technetium 99m sestamibi was injected stress images were obtained stress and rest images were reconstructed and compared in the short axis vertical long and horizontal long axis. Gated images were also obtained. Perfusion SPECT analysis: Review of the stress images demonstrate normal uptake of tracer noted in all areas of the myocardium. The resting images similarly demonstrate normal uptake of tracer noted in all areas of the myocardium. No areas of reversibility are noted to suggest ischemia and no previous infarct is noted. Gated SPECT analysis: The gated ejection fraction is 34%. 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 No evidence of ischemia noted at a moderate workload. Labs: No Data to Display Diagnostics: Echocardiogram Stress Test NM Stress Test Pulmonary: No Data to Display Assessment and Plan Assessment and Plan (1) HFrEF (heart failure with reduced ejection fraction): Status: Acute Plan - Dr. Damion Vu MD: He does have evidence of congestive heart failure with reduced left ventricular systolic function. The etiology of the above is not entirely clear. He does have low ventricular pressure for though he says that he has not been hypertensive in the past. The plan will be to get him diuresed and start him on a beta-pilar with carvedilol 3.125 mg twice a day. I would also prefer that he be on an DANA inhibitor with quinapril as well as the diuretic. This was apparently started through your office. I would recommend that despite the fact that his stress test was normal we pursue a left heart catheterization to definitively exclude obstructive coronary disease. Due to his reduced renal function I would not perform a left ventriculogram. (2) Non-ST elevated myocardial infarction: Status: Acute Plan - Dr. Damion Vu MD: Due to his abnormal cardiac enzymes I would like him to be admitted until we further evaluate the above with a left heart catheterization. The risk benefits and alternatives have been explained to him he understands and agrees to proceed. He is being admitted directly to the hospital. (3) Left bundle branch block (LBBB): Status: Acute Plan - Dr. Damion Vu MD: He does have a left bundle branch block which appears to be chronic the plan will be to continue to monitor this. 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) Coding Level of Care Code Off vis,new,level 5 Diagnoses HFrEF (heart failure with reduced ejection fraction) I50.20 Non-ST elevated myocardial infarction I21.4 Left bundle branch block (LBBB) I44.7 Coding Level of Care Code Off vis,new,level 5 Diagnoses HFrEF (heart failure with reduced ejection fraction) I50.20 Non-ST elevated myocardial infarction I21.4 Left bundle branch block (LBBB) I44.7 12/16/21 1015 <Electronically signed by Damion Vu MD> Date Damion Vu MD Cosigner Signature: Date (if applicable) CC: MD Joelle Segura MD Work Phone: Start: 12-13-2021 End: 12-13-2021 Echo Complete Comments: See Note; NOTES: [facility] [address] [place] [address] Echo Complete 12/13/21 1000 MR#: [id number] Acct: [id number] Name: BERNY INFANTE Rep #: [id number] : 1940 81 From: Damion Vu MD Attending Dr: Dr. Joelle Stern MD Status: REG CLI Ordering Dr: Joelle Stern MD Date: 12/13/21 Location: [facility] Sex: M C Admitted: Reason For Study: lower left ventricular ejection fraction Procedure This was a 2D Doppler, Color Flow transthoracic echocardiogram. Exam performed in department. Left Ventricle Normal LV size. Moderate concentric left ventricular hypertrophy. The estimated ejection fraction is 35 %. Stage 3 diastolic dysfunction. There is moderate to severe global hypokinesis of the left ventricle. Right Ventricle Normal RV size. Normal systolic function. Mitral Valve Bileaflet diffuse mitral valve thickening. Mild (1+) eccentric mitral valve insufficiency. Tricuspid Valve Normal tricuspid valve. Mild to moderate (1-2+) tricuspid valve insufficiency. Pulmonary artery systolic pressure is 34 mmHg. Aortic Valve Trisinus/trileaflet aortic valve. Mild focal aortic valve calcification. Trivial aortic valve insufficiency. Pericardium/Pleural Small pericardial effusion. MMode/2D Measurements Calculations LVIDd: 5.1 cm IVSd: 1.2 cm Ao root diam: 3.7 cm LVIDs: 4.0 cm LVPWd: 1.3 cm RVDd: 3.6 cm FS: 22.8 % LAV(MOD-bp): 75.1 ml LA dimension(2D): 4.8 cm LA A4 area: 22.6 cm2 LAV(MOD-bp) Indexed: 36.3 ml/m2 LAV(MOD-sp2): 72.6 ml LAV(MOD-sp4): 72.2 ml RA A4 area: 16.2 cm2 Doppler Measurements Calculations MV E max sameer: 96.2 cm/sec Ao V2 max: 82.9 cm/sec LV V1 max: 68.0 cm/sec MV A max sameer: 47.9 cm/sec Ao max P.8 mmHg LV V1 max P.8 mmHg MV E/A: 2.0 MR max sameer: 388.4 cm/sec PA V2 max: 87.6 cm/sec TR max sameer: 272.6 cm/sec MR max P.4 mmHg TR max P.7 mmHg ECHO/Echo Complete Interpretation Summary Normal LV size. Moderate concentric left ventricular hypertrophy. The estimated ejection fraction is 35 %. There is moderate to severe global hypokinesis of the left ventricle. Small pericardial effusion. Mild (1+) eccentric mitral valve insufficiency. Stage 3 diastolic dysfunction. Pulmonary artery systolic pressure is 34 mmHg. _ Ordering Physician: Joelle Stern Referring Physician: Moise Araiza M.D. Performed By: Shelley Powell, OWEN, RVT 12/13/21 1423 Date Damion Vu MD CC: Dr. Joelle Stern MD Date Dictated: 12/13/21 1000 Date Transcribed: 12/13/21 1423 Inspector Circuitry Negative: Signed Joelle Stern MD Work Phone: Start: 10-11-2021 End: 10-12-2021 Emergency Department Summary Comments: See Note; NOTES: [facility] Medical Records Department [address] [place] [address] Emergency Department Summary 10/11/21 MR#: [id number] Acct: [id number] Name: BERNY INFANTE Rep #: [id number] : 1940 81 From: Ryley Morales DO PCP: Dr. Joelle Stern MD Status:REG ER Location: ED HPI History of Present Illness Chief Complaint: Back Informant: patient Onset/Context/Timing Onset: Today Chronic pain exacerbated by: Activity Timing: Continuous Quality: Aching Location: Lumbar Worsened by: improves with Ambulation Relieved by: Sitting Associated Symptoms Associated Symptoms: Radiation to Left Leg; Negative for Numbness, Tingling, Radiation to Right Leg, Fever, Abdominal Pain, Dysuria, Unable to Ambulate, Unable to Transfer, Urinary Retention, Urinary Incontinence, Constipation and Fecal Incontinence Narrative Narrative: Patient with left lower lumbar pain that became worse today. Patient states that he has had similar pains in the past but this is worse. Patient states he had recent x-rays done. Patient states he has been to physical therapy. Patient states he was doing some of his physical therapy exercises today. Patient states his pain became worse after that. Patient states his pain is constant. Patient states the pain radiates to his left thigh. Patient denies any bowel or bladder changes. Patient denies any saddle anesthesia. Patient states his pain is different than the pain he gets with his kidney stones. Patient states he contacted his primary care physician who referred to the emergency department for management of his pain. [facility] Medical History (Updated 10/11/21 @ 23:[address] Ryley Morales DO) History of hay fever Prostate cancer Home Medications celecoxib 200 mg PO DAILY PRN 07/31/17 [History Last Taken Unknown] duloxetine 20 mg PO BID 07/31/17 [History Last Taken Unknown] folic acid 1 mg PO BID 10/11/21 [History Last Taken Unknown] oxycodone-acetaminophen 1 tab PO Q6H PRN PRN 3 Days #12 tablet 10/11/21 [Rx Last Taken Unknown] potassium citrate 10 meq PO BID 10/11/21 [History Last Taken Unknown] rosuvastatin 20 mg PO DAILY 10/11/21 [History Last Taken Unknown] vitamin B complex [B Complex] 1 cap PO BID 10/11/21 [History Last Taken Unknown] zolpidem [Ambien] 10 mg PO QHS 10/11/21 [History Last Taken Unknown] Allergy/AdvReac Type Severity Reaction Status Date / Time iodine Allergy Shortness Verified 10/11/21 21:25 of breath Surgical History (Updated 10/11/21 @ 21:[address] Ryley Morales DO) History of prostate surgery History of total bilateral knee replacement Hx of appendectomy Social History Smoking Status: Never smoker alcohol intake: current details: social substance use type: does not use ROS ROS ED Constitutional Constitutional ED: Denies chills or fever(s) Eyes Eyes: Denies blurry vision or change in vision ENT ENT ED: Denies rhinorrhea or sore throat Cardiovascular Cardiovascular: Denies chest pain or palpitations Respiratory/Chest Respiratory/Chest: Denies cough or dyspnea Gastrointestinal Gastrointestinal: Denies nausea or vomiting Genitourinary Genitourinary ED: Denies dysuria or hematuria Musculoskeletal Musculoskeletal: Reports back pain; Denies neck pain Integumentary Denies abscess or rash Neurologic Neurologic: Denies headache(s) or weakness Allergic/Immunologic Allergic/Immunologic ED: Denies mouth swelling or urticaria EXAM Physical Exam Const Vital Signs: 10/11/21 21:17 10/11/21 21:22 Temperature 98.1 F Temperature Source Temporal Pulse Rate 92 Respiratory Rate 20 H 17 Blood Pressure 108/88 H Blood Pressure Mean 94 Pulse Ox 100 Oxygen Delivery Method Room Air Room Air Positive well nourished and well developed General Appearance ED: well developed HEENT Reports moist mucous membranes GI normal to inspection, nondistended, normoactive bowel sounds and soft to palpation Back/Spine Back/Spine Narrative: There is some mild tenderness over the left lumbar paraspinal muscles. There is no midline tenderness. There is no bony crepitance or step-off. Range of motion was limited in all motions of the lumbar spine secondary to pain. Strength is 5/5 bilaterally in the lower extremities. Deep tendon reflexes were 2/4 bilaterally in the lower extremities. Sensation was intact to light touch bilaterally in the lower extremities. Straight leg raises were negative bilaterally. General Back: Negative for CVA tenderness Neuro oriented x3 Sensorium / Orientation: alert Motor Exam: strength 5/5 throughout Deep Tendon Reflexes: Rt Patellar (L4): 2+, Lt Patellar (L4): 2+, Rt Ankle (S1): 2+ and Lt Ankle (S1): 2+ Deep Tendon Reflexes Back: Rt Patellar (L4): 2+, Lt Patellar (L4): 2+, Rt Ankle (S1): 2+ and Lt Ankle (S1): 2+ Psych mental status grossly normal MDM MDM MDM Narrative Medical decision making narrative: Since the patient has had x-rays done recently and he has had no recent trauma, I do not feel it is necessary to repeat them at this time. Patient was given inject ion of morphine here. Patient had minimal relief with this. Patient was given a repeat dose of morphine. Patient states he still has minimal improvement of his pain. Patient was given a dose of Dilaudid. Patient feels better after this. Patient states he feels he is able to get around at home. Patient was given a prescription for Percocet. Patient was instructed to follow-up with his primary care physician in 3 to 5 days. Patient was instructed on signs and symptoms which should prompt return to the emergency department. Patient understood and was agreeable with the plan. All questions were answered. Discharge Plan Triage Chief Complaint: Back ED Provider: Ryley Morales Dx/Rx/DC Orders Clinical Impression: Acute low back pain Instructions: ED Back Pain (Acute or Chronic) Prescriptions: New oxycodone-acetaminophen [oxycodone-acetaminophen] 1 TABLET tablet 1 tab PO Q6H PRN PRN (Reason: Pain) 3 Days Qty: 12 RF: 0 No Action celecoxib 200 MG capsule 200 mg PO DAILY PRN (Reason: Pain) RF: 0 duloxetine 20 MG capsule 20 mg PO BID RF: 0 potassium citrate 10 mEq (1,080 mg) Tablet Extended Release 10 meq PO BID RF: 0 zolpidem [Ambien] 10 mg Tablet 10 mg PO QHS RF: 0 rosuvastatin 20 mg Capsule, Sprinkle 20 mg PO DAILY RF: 0 folic acid 1 mg Tablet 1 mg PO BID RF: 0 vitamin B complex [B Complex] Capsule 1 cap PO BID RF: 0 Primary Care Provider: Joelle Stern Referrals: Joelle Stern MD [Primary Care Provider] - 3-5 Days Disposition Disposition: Home, Self Care What to do if you have Problems For any increased pain, shortness of breath, bleeding, nausea or vomiting, chest pain, or any unexpected problems, contact your Primary Care Provider. Call [facility] ([phone]) or report to the closest Emergency Room. Call 911 if necessary. 10/12/21 0003 <Electronically signed by Ryley Morales DO> Cosigner Signature (if applicable): CC: Dr. Joelle Stern MD Signed Joelle Stern MD Work Phone: Start: 10-04-2021 End: 10-04-2021 PT D/C Summary (1) Comments: See Note; NOTES: [facility] [address] [place] [address] [address] [place] [address] / REHABILITATION SERVICES DISCHARGE SUMMARY MR#: [id number] Acct: [id number] Name: BERNY INFANTE Rep #: [id number] : 1940 81 From: Ryley Mccoy DPT, OCS, CSCS Referring Dr.: Dr. Joelle Stern MD Status: REG R Insurance: [facility] SELF PAY INSURANCE It has been my pleasure to treat BERNY INFANTE referred by Dr. Joelle Stern MD, with the diagnosis of Leg weakness, unsteady gait for a total of 9 visit(s). Discharge Date: 10/04/21 Please see the following information for a summary of their discharge status. Subjective: Doing pretty good. I like the exercises. wants to keep doing it. Feels like he can do this on his own. Feels stronger standing up, got up off floor himself the other day. 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 it will wear me out. % Improvement: 33 Objective/Function: Doing well with balance. and I with exercises and goals progressing nicely. Feels like he can continue in the gym on his own and will do so. Goal 1:: I approp gym ex for LE and postural strength, balance if needed, HS, quad and gastroc stretch and shoulder ROM Goal Progress: Goal Met Goal 2:: Get up off floor with ease and confidence Goal Progress: Goal Met Goal 3:: Pt feel 75% better in balance and confidence with strength Goal Progress: 33% Goal 4:: Neurocom balance test and give results. Goal Progress: Goal Met Plan: d/c If there are questions or concerns regarding this patient's physical therapy, please feel free to call me at [phone]. Thank you for the referral of this patient. Sincerely, Ryley Mccoy, BIANCAT, OCS, CSCS Balance/Gait/Functional tests - Balance/Special Test Scores Functional Gait Assessment Score: 29 % Disability: 3.3400 CATSIB Score (Max score 120 seconds): 60 Lower Extremity Functional Score: 55 <Electronically signed by Ryley Mccoy DPT, OCS, CSCS> 10/04/21 0951 CC: Dr. Joelle Stern MD EBG Signed Joelle Stern MD Work Phone: Start: 09-13-2021 End: 09-15-2021 Stress Report Comments: See Note; NOTES: [facility] Services [address] [place] [address] MR#: [id number] Acct: [id number] Name: BERNY INFANTE Rep #: [id number] : 1940 81 From: Damion Vu MD Primary Care: Dr. Joelle Stern MD Status: REG CLI Referring Dr: Joelle Stern MD Sex: M C Stress Test Report Exercise myocardial perfusion stress test. 81-year-old man with a history of chest pain. Stress protocol: Resting EKG demonstrates normal sinus rhythm with a rate of 82 bpm and incomplete left bundle branch block noted. Resting blood pressure is 128/84 mmHg. The patient exercised according to the regular Yandel protocol for a total duration of 5 minutes. Patient completed 2 minutes into stage II of the Yandel protocol. The maximum heart rate attained was 114 bpm which was 82% of maximum predicted heart rate the maximum workload was 7 metabolic equivalents. At rest there were no ST or T wave changes noted to suggest ischemia nonspecific ST changes were noted though the patient experienced slight pressure in the lower part of the chest. The test was terminated due to dyspnea. Myocardial perfusion protocol. 11.7 mCi of technetium 99m sestamibi was injected at rest. Patient exercised according to regular Yandel protocol for 5 minutes and at peak exercise 33.3 mCi of technetium 99m sestamibi was injected stress images were obtained stress and rest images were reconstructed and compared in the short axis vertical long and horizontal long axis. Gated images were also obtained. Perfusion SPECT analysis: Review of the stress images demonstrate normal uptake of tracer noted in all areas of the myocardium. The resting images similarly demonstrate normal uptake of tracer noted in all areas of the myocardium. No areas of reversibility are noted to suggest ischemia and no previous infarct is noted. Gated SPECT analysis: The gated ejection fraction is 34%. 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 No evidence of ischemia noted at a moderate workload. 09/13/211756 <Electronically signed by Damion Vu MD> Date Damion Vu MD CC: Dr. Joelle Stern MD Date Dictated: 09/13/211753 Date Transcribed: 09/13/211753 Inspector Circuitry Negative: [place] Signed Joelle Stern MD Work Phone: Start: 09-03-2021 End: 09-15-2021 Inital Evaluation (1) - PT Comments: See Note; NOTES: [facility] Physical Therapy [address] [place] [address] / REHABILITATION SERVICES INITIAL EVALUATION MR#: [id number] Acct: [id number] Name: BERNY INFANTE Rep #: [id number] : 1940 81 From: Ryley Mccoy DPT, OCS, CSCS Referring Dr.: Dr. Joelle Stern MD Status: REG RCR Insurance: [employer] [facility] SELF PAY INSURANCE Patient's Visit Information BERNY INFANTE is a 81 year old M referred to Physical Therapy by Dr. Joelle Stern MD with a diagnosis of Leg weakness, unsteady gait. Date of Evaluation: 09/03/21 Physical Therapist: Ryley Mccoy, DPT, OCS, CSCS - Visit Plan Frequency: 2-3x /Week Duration: 4-6 Weeks Plan: Neurocom balance test then. 2-3x/week for 4 weeks for. 1. HS, gastroc, quad stretching to HEP, LB ROM flexion to HEP. 2. shoulder elevation ROM to HEP. 3. Strength in gym of posture, core, LE including get up off floor as exercise and progress to I. 4. balance ex as appropriate based on balanbce test(vestibular) - Subjective Goes by skip . I need to gain a strength. Has LB problems from time to time. Legs feel weak as he has gotten older and skinnier. 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 LBP not a current problem. Takes celebrex daily which helps. Walking long distances acan make it hurt but gone with sitting. Sleep is fine. 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 Balance could be better. Notices it has been off at times for no apparent reason. standing with feet together is hard. Needs to be careful stadning out of chair at home. No falls,. No AD needed. Uses wading staff in water and boots with metal studs. No regular exercises. Used to walk dog a lot but that dog . Spends day sleeping, working in yard. Has service mow the lawn. 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 Basic Lives with , lives on single story with basement, steps feel weak when carrying kits down steps. Needs to carry 40# of water at t noelle. Basic ADLS are good. bending to put shoes on can be an issue just hard to do. Putting waders on takes effort., Feels weak. - Objective Walks into PT confidently and normal and safe. Trasnfers bed and chair I without UE. Steps are reciprocal but show some weakness with eccentric lowering. max tight in HS, quads, hip flecxors and gastroc/soleus. LB AROM ex mod limited, flexion mod limited, rotation mod limited. UE AROM WFL but limited in elevation shoulders to 130. reflexes 2./3 patella and achilles. Sensationn LE WNL to gross light touch. Strength LE 4/5 ankles and knees and 4- hip abd and ext and flexion B. 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 - Balance/Special Test Scores Functional Gait Assessment Score: 28 % Disability: 6.6700 CATSIB Score (Max score 120 seconds): 60 Lower Extremity Functional Score: 54 - Goals Goal 1:: I approp gym ex for LE and postural strength, balance if needed, HS, quad and gastroc stretch and shoulder ROM Goal Time Frame: 4-6 Weeks Goal 2:: Get up off floor with ease and confidence Goal Time Frame: 4-6 Weeks Goal 3:: Pt feel 75% better in balance and confidence with strength Goal Time Frame: 4-6 Weeks Goal 4:: Neurocom balance test and give results. Goal Time Frame: 4-6 Weeks - Rehabilitation Potential Physical Therapy Diagnosis: Weakness threatening function Rehabilitation Potential: Fair - Anticipated Interventions Patient/Client Instruction: Educate patient on: Condition, Plan of Care For the Purpose of:: To increase ROM, To improve muscle performance and motor function, To increase tolerance to activity/condition/position, To improve gait and locomotor functions Therapeutic Exercise to Include: Strength training, Flexibilty training, Passive ROM, Active ROM For the Purpose of:: To increase ROM, To improve muscle performance and motor function, To increase tolerance to activity/condition/position, To improve ability of physical actions for home/community/work/leisure, To improve gait and locomotor functions Thank you for the opportunity to evaluate your patient. For Medicare and Medicare HMO plans, please review the plan of care and approve it. It will need to be FAXED BACK to us at [phone] for Medicare purposes. For Medicare only, by signing this I certify the plan of care. Please let me know if there are questions or concerns regarding this plan of care. Physician Signature: ___Date: <Electronically signed by Ryley Mccoy DPT, OCS, CSCS> 09/03/21 6274 CC: Dr. Joelle Stern MD EBG Signed Joelle Stern MD Work Phone: Start: 11-20-2006 End: 11-20-2006 Arthrp kne condyle&platu medial&lat compartments YOLANDA Higgins LPN Plan of Treatment Date Care Activity Detail Author Start: 01-12-2024 DIABETES SCREEN DIABETES SCREEN [facility] Start: 09-15-2023 Sedimentation rate rbc non-automated Sed Rate Erythrocyte (87113) [facility] Work Phone: Start: 09-15-2023 C-reactive protein C-Reactive Protein (19703) [facility] Work Phone: Start: 09-15-2023 Procedure Education Eprescribed prescriptions (G8553) [facility] Work Phone: Start: 08-08-2023 Procedure Education Eprescribed prescriptions (G8553) [facility]; [facility] Work Phone: Start: 08-08-2023 25 hydroxy includes fractions if performed CALCIFIDIOL (62171) VIT D 25 [facility]; [facility] Work Phone: Start: 07-21-2023 Influenza vaccination INFLUENZA (Season Ended) [facility] Start: 05-02-2023 Basic metabolic panel calcium total Metabolic Panel, Basic (22377) [facility]; [facility] Work Phone: Immunizations Immunization Date Immunization Notes Care Provider Fa lucero 08-07-2023 influenza, injectabl e, quadrivalent, preservative free Joelle Stern MD Work Phone: [facility]; [facility] Work Phone: Payers Date Payer Category Payer Medicare [id number] 2011 Medicare [employer] MEDICARE A ETNA MEDICARE PPO [id number] 2011-Present [phone] [address] [place] [address] O [id number] 2011 Medicare AETNA MEDICARE A ETNA MEDICARE PPO [id number] 2011-Present [phone] [address] [place] [address] PPO [id number] 1940 Unknown [id number] Medicare [id number] Unknown [employer] Life Ins/Medicare Social History Date Type Detail Facility Alcohol Use: Alcohol Use: [facility] Work Phone: Functional Status Date Assessment Result Facility 08-12-2021 LP-IR Score LP-IR Score <25 [facility]; [facility] Work Phone: Clinical Notes 01-23-2014 to 03-22-2023 Telephone Encounter - Anne-Marie Espinosa - 03/22/2023 11:24 AM EDT Note Date & Type Note Facility 03-22-2023 Miscellaneous Notes Formattin g of this note might be different from the original. Outside medical records received- uploaded in the [employer] drive. 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 04/08/15 pt will then follow up with Dr Sandro MATIAS will be [employer], he had gotten previous machine from that company. documented as of this encounter (statuses as of 03/22/2023) [facility] Tachy[facility]- Primary Tachycardia, unspecified [facility] Name Dates Details Patient Instructions Indication:Low back pain with left-sided sciatica Start:13-Oct-2021 Instruction Type:Provider Instructions for Treatment How to Access Health Informa tion Online using Patient Portal and [employer] Apps Indication:Low back pain with left-sided sciatica Start:13-Oct-2021 Instruction Type:Patient Education Patient Instructions Indication:Annual Medicare Physical WITH abnormal findings (Renamed from Encounter for general adult medical examination with abnormal findings) Start:30-Aug-2021 Instruction Type:Provider Instructions for Treatment How to Access Health Informa tion Online using Patient Portal and [employer] Apps Indication:Annual Medicare Physical WITH abnormal findings (Renamed from Encounter for general adult medical examination with abnormal findings) Start:30-Aug-2021 Instruction Type:Patient Education Patient Instructions Indication:Abdominal pain, acute, right upper quadrant Start:26-Jul-2013 Instruction Type:Provider Instructions for Treatment Patient Instructions Indication:Abdominal pain, acute, right lower quadrant Start:04-Jun-2013 Instruction Type:Provider Instructions for Treatment Patient Instructions Indication:Abdominal pain, acute, right upper quadrant Start:27-May-2013 Instruction Type:Provider Instructions for Treatment [facility] Work Phone: Instructions* Name Dates Details Patient Instructions Indication:Low back pain with left-sided sciatica Start:13-Oct-2021 Instruction Type:Provider Instructions for Treatment How to Access Health Informa tion Online using Patient Portal and [employer] Apps Indication:Low back pain with left-sided sciatica Start:13-Oct-2021 Instruction Type:Patient Education Patient Instructions Indication:Annual Medicare Physical WITH abnormal findings (Renamed from Encounter for general adult medical examination with abnormal findings) Start:30-Aug-2021 Instruction Type:Provider Instructions for Treatment How to Access Health Informa tion Online using Patient Portal and [employer] Apps Indication:Annual Medicare Physical WITH abnormal findings (Renamed from Encounter for general adult medical examination with abnormal findings) Start:30-Aug-2021 Instruction Type:Patient Education Patient Instructions Indication:Abdominal pain, acute, right upper quadrant Start:26-Jul-2013 Instruction Type:Provider Instructions for Treatment Patient Instructions Indication:Abdominal pain, acute, right lower quadrant Start:04-Jun-2013 Instruction Type:Provider Instructions for Treatment Patient Instructions Indication:Abdominal pain, acute, right upper quadrant Start:27-May-2013 Instruction Type:Provider Instructions for Treatment [facility] Work Phone: [employer]* Name Dates Details Patient Instructions Indication:Low back pain with left-sided sciatica Start:13-Oct-2021 Instruction Type:Provider Instructions for Treatment How to Access Health Informa tion Online using Patient [employer] Indication:Low back pain with left-sided sciatica Start:13-Oct-2021 Instruction Type:Patient Education Patient Instructions Indication:Annual Medicare Physical WITH abnormal findings (Renamed from Encounter for general adult medical examination with abnormal findings) Start:30-Aug-2021 Instruction Type:Provider Instructions for Treatment How to Access Health Informa tion Online using Patient Portal and [employer] Apps Indication:Annual Medicare Physical WITH abnormal findings (Renamed from Encounter for general adult medical examination with abnormal findings) Start:30-Aug-2021 Instruction Type:Patient Education Patient Instructions Indication:Abdominal pain, acute, right upper quadrant Start:26-Jul-2013 Instruction Type:Provider Instructions for Treatment Patient Instructions Indication:Abdominal pain, acute, right lower quadrant Start:04-Jun-2013 Instruction Type:Provider Instructions for Treatment Patient Instructions Indication:Abdominal pain, acute, right upper quadrant Start:27-May-2013 Instruction Type:Provider Instructions for Treatment [facility]; [facility] Work Phone: instructions* Name Dates Details Patient Instructions Indication:MIKY (obstructive sleep apnea) Start:14-Dec-2021 Instruction Type:Provider Instructions for Treatment How to Access Health Informa tion Online using Patient [employer] Apps Indication:MIKY (obstructive sleep apnea) Start:14-Dec-2021 Instruction Type:Patient Education Patient Instructions Indication:Low back pain with left-sided sciatica Start:13-Oct-2021 Instruction Type:Provider Instructions for Treatment How to Access Health Informa tion Online using Patient Portal and [employer] Apps Indication:Low back pain with left-sided sciatica Start:13-Oct-2021 Instruction Type:Patient Education Patient Instructions Indication:Annual Medicare Physical WITH abnormal findings (Renamed from Encounter for general adult medical examination with abnormal findings) Start:30-Aug-2021 Instruction Type:Provider Instructions for Treatment How to Access Health Informa tion Online using Patient Portal and [employer] Apps Indication:Annual Medicare Physical WITH abnormal findings (Renamed from Encounter for general adult medical examination with abnormal findings) Start:30-Aug-2021 Instruction Type:Patient Education Patient Instructions Indication:Abdominal pain, acute, right upper quadrant Start:26-Jul-2013 Instruction Type:Provider Instructions for Treatment Patient Instructions Indication:Abdominal pain, acute, right lower quadrant Start:04-Jun-2013 Instruction Type:Provider Instructions for Treatment Patient Instructions Indication:Abdominal pain, acute, right upper quadrant Start:27-May-2013 Instruction Type:Provider Instructions for Treatment [facility]; [facility] Work Phone: Instructions* Name Dates Details Patient Instructions Indication:MIKY (obstructive sleep apnea) Start:14-Dec-2021 Instruction Type:Provider Instructions for Treatment How to Access Health Informa tion Online using Patient Portal and [employer] Apps Indication:MIKY (obstructive sleep apnea) Start:14-Dec-2021 Instruction Type:Patient Education Patient Instructions Indication:Low back pain with left-sided sciatica Start:13-Oct-2021 Instruction Type:Provider Instructions for Treatment How to Access Health Informa tion Online using Patient Portal and [employer] Apps Indication:Low back pain with left-sided sciatica Start:13-Oct-2021 Instruction Type:Patient Education Patient Instructions Indication:Annual Medicare Physical WITH abnormal findings (Renamed from Encounter for general adult medical examination with abnormal findings) Start:30-Aug-2021 Instruction Type:Provider Instructions for Treatment How to Access Health Informa tion Online using Patient Portal and [employer] Apps Indication:Annual Medicare Physical WITH abnormal findings (Renamed from Encounter for general adult medical examination with abnormal findings) Start:30-Aug-2021 Instruction Type:Patient Education Patient Instructions Indication:Abdominal pain, acute, right upper quadrant Start:26-Jul-2013 Instruction Type:Provider Instructions for Treatment Patient Instructions Indication:Abdominal pain, acute, right lower quadrant Start:04-Jun-2013 Instruction Type:Provider Instructions for Treatment Patient Instructions Indication:Abdominal pain, acute, right upper quadrant Start:27-May-2013 Instruction Type:Provider Instructions for Treatment [facility]; [facility] Work Phone: instructions* Name Dates Details Patient Instructions Indication:MIKY (obstructive sleep apnea) Start:14-Dec-2021 Instruction Type:Provider Instructions for Treatment How to Access Health Informa tion Online using Patient Portal and [employer] Apps Indication:MIKY (obstructive sleep apnea) Start:14-Dec-2021 Instruction Type:Patient Education Patient Instructions Indication:Low back pain with left-sided sciatica Start:13-Oct-2021 Instruction Type:Provider Instructions for Treatment How to Access Health Informa tion Online using Patient Portal and [employer] Apps Indication:Low back pain with left-sided sciatica Start:13-Oct-2021 Instruction Type:Patient Education Patient Instructions Indication:Annual Medicare Physical WITH abnormal findings (Renamed from Encounter for general adult medical examination with abnormal findings) Start:30-Aug-2021 Instruction Type:Provider Instructions for Treatment How to Access Health Informa tion Online using Patient Portal and [employer] Apps Indication:Annual Medicare Physical WITH abnormal findings (Renamed from Encounter for general adult medical examination with abnormal findings) Start:30-Aug-2021 Instruction Type:Patient Education Patient Instructions Indication:Abdominal pain, acute, right upper quadrant Start:26-Jul-2013 Instruction Type:Provider Instructions for Treatment Patient Instructions Indication:Abdominal pain, acute, right lower quadrant Start:04-Jun-2013 Instruction Type:Provider Instructions for Treatment Patient Instructions Indication:Abdominal pain, acute, right upper quadrant Start:27-May-2013 Instruction Type:Provider Instructions for Treatment [facility]; [facility] Work Phone: Instructions* Name Dates Details Patient Instructions Indication:MIKY (obstructive sleep apnea) Start:14-Dec-2021 Instruction Type:Provider Instructions for Treatment How to Access Health Informa tion Online using Patient Portal and [employer] Apps Indication:MIKY (obstructive sleep apnea) Start:14-Dec-2021 Instruction Type:Patient Education Patient Instructions Indication:Low back pain with left-sided sciatica Start:13-Oct-2021 Instruction Type:Provider Instructions for Treatment How to Access Health Informa tion Online using Patient Portal and [employer] Apps Indication:Low back pain with left-sided sciatica Start:13-Oct-2021 Instruction Type:Patient Education Patient Instructions Indication:Annual Medicare Physical WITH abnormal findings (Renamed from Encounter for general adult medical examination with abnormal findings) Start:30-Aug-2021 Instruction Type:Provider Instructions for Treatment How to Access Health Informa tion Online using Patient Portal and [employer] Apps Indication:Annual Medicare Physical WITH abnormal findings (Renamed from Encounter for general adult medical examination with abnormal findings) Start:30-Aug-2021 Instruction Type:Patient Education Patient Instructions Indication:Abdominal pain, acute, right upper quadrant Start:26-Jul-2013 Instruction Type:Provider Instructions for Treatment Patient Instructions Indication:Abdominal pain, acute, right lower quadrant Start:04-Jun-2013 Instruction Type:Provider Instructions for Treatment Patient Instructions Indication:Abdominal pain, acute, right upper quadrant Start:27-May-2013 Instruction Type:Provider Instructions for Treatment [facility]; [facility] Work Phone: Instructions* Name Dates Details Patient Instructions Indication:MIKY (obstructive sleep apnea) Start:14-Dec-2021 Instruction Type:Provider Instructions for Treatment How to Access Health Informa tion Online using Patient Portal and [employer] Apps Indication:MIKY (obstructive sleep apnea) Start:14-Dec-2021 Instruction Type:Patient Education Patient Instructions Indication:Low back pain with left-sided sciatica Start:13-Oct-2021 Instruction Type:Provider Instructions for Treatment How to Access Health Informa tion Online using Patient Portal and [employer] Indication:Low back pain with left-sided sciatica Start:13-Oct-2021 Instruction Type:Patient Education Patient Instructions Indication:Annual Medicare Physical WITH abnormal findings (Renamed from Encounter for general adult medical examination with abnormal findings) Start:30-Aug-2021 Instruction Type:Provider Instructions for Treatment How to Access Health Informa tion Online using Patient Portal and [employer] Indication:Annual Medicare Physical WITH abnormal findings (Renamed from Encounter for general adult medical examination with abnormal findings) Start:30-Aug-2021 Instruction Type:Patient Education Patient Instructions Indication:Abdominal pain, acute, right upper quadrant Start:26-Jul-2013 Instruction Type:Provider Instructions for Treatment Patient Instructions Indication:Abdominal pain, acute, right lower quadrant Start:04-Jun-2013 Instruction Type:Provider Instructions for Treatment Patient Instructions Indication:Abdominal pain, acute, right upper quadrant Start:27-May-2013 Instruction Type:Provider Instructions for Treatment [facility]; [facility] Work Phone: Instructions* Name Dates Details Patient Instructions Indication:MIKY (obstructive sleep apnea) Start:14-Dec-2021 Instruction Type:Provider Instructions for Treatment How to Access Health Informa tion Online using Patient Portal and [employer] Apps Indication:MIKY (obstructive sleep apnea) Start:14-Dec-2021 Instruction Type:Patient Education Patient Instructions Indication:Low back pain with left-sided sciatica Start:13-Oct-2021 Instruction Type:Provider Instructions for Treatment How to Access Health Informa tion Online using Patient Portal and [employer] Apps Indication:Low back pain with left-sided sciatica Start:13-Oct-2021 Instruction Type:Patient Education Patient Instructions Indication:Annual Medicare Physical WITH abnormal findings (Renamed from Encounter for general adult medical examination with abnormal findings) Start:30-Aug-2021 Instruction Type:Provider Instructions for Treatment How to Access Health Informa tion Online using Patient Portal and [employer] Indication:Annual Medicare Physical WITH abnormal findings (Renamed from Encounter for general adult medical examination with abnormal findings) Start:30-Aug-2021 Instruction Type:Patient Education Patient Instructions Indication:Abdominal pain, acute, right upper quadrant Start:26-Jul-2013 Instruction Type:Provider Instructions for Treatment Patient Instructions Indication:Abdominal pain, acute, right lower quadrant Start:04-Jun-2013 Instruction Type:Provider Instructions for Treatment Patient Instructions Indication:Abdominal pain, acute, right upper quadrant Start:27-May-2013 Instruction Type:Provider Instructions for Treatment [facility]; [facility] Work Phone: Instructions* Name Dates Details Patient Instructions Indication:MIKY (obstructive sleep apnea) Start:14-Dec-2021 Instruction Type:Provider Instructions for Treatment How to Access Health Informa tion Online using Patient Portal and [employer] Apps Indication:MIKY (obstructive sleep apnea) Start:14-Dec-2021 Instruction Type:Patient Education Patient Instructions Indication:Low back pain with left-sided sciatica Start:13-Oct-2021 Instruction Type:Provider Instructions for Treatment How to Access Health Informa tion Online using Patient Portal and [employer] Apps Indication:Low back pain with left-sided sciatica Start:13-Oct-2021 Instruction Type:Patient Education Patient Instructions Indication:Annual Medicare Physical WITH abnormal findings (Renamed from Encounter for general adult medical examination with abnormal findings) Start:30-Aug-2021 Instruction Type:Provider Instructions for Treatment How to Access Health Informa tion Online using Patient Portal and [employer] Apps Indication:Annual Medicare Physical WITH abnormal findings (Renamed from Encounter for general adult medical examination with abnormal findings) Start:30-Aug-2021 Instruction Type:Patient Education Patient Instructions Indication:Abdominal pain, acute, right upper quadrant Start:26-Jul-2013 Instruction Type:Provider Instructions for Treatment Patient Instructions Indication:Abdominal pain, acute, right lower quadrant Start:04-Jun-2013 Instruction Type:Provider Instructions for Treatment Patient Instructions Indication:Abdominal pain, acute, right upper quadrant Start:27-May-2013 Instruction Type:Provider Instructions for Treatment [facility]; [facility] Work Phone: Instructions* Name Dates Details Patient Instructions Indication:BMI 28.0-28.9,adult Start:25-Jan-2022 Instruction Type:Provider Instructions for Treatment How to Access Health Informa tion Online using Patient Portal and [employer] Apps Indication:BMI 28.0-28.9,adult Start:25-Jan-2022 Instruction Type:Patient Education Patient Instructions Indication:MIKY (obstructive sleep apnea) Start:14-Dec-2021 Instruction Type:Provider Instructions for Treatment How to Access Health Informa tion Online using Patient Portal and [employer] Apps Indication:MIKY (obstructive sleep apnea) Start:14-Dec-2021 Instruction Type:Patient Education Patient Instructions Indication:Low back pain with left-sided sciatica Start:13-Oct-2021 Instruction Type:Provider Instructions for Treatment How to Access Health Informa tion Online using Patient Portal and [employer] Apps Indication:Low back pain with left-sided sciatica Start:13-Oct-2021 Instruction Type:Patient Education Patient Instructions Indication:Annual Medicare Physical WITH abnormal findings (Renamed from Encounter for general adult medical examination with abnormal findings) Start:30-Aug-2021 Instruction Type:Provider Instructions for Treatment How to Access Health Informa tion Online using Patient Portal and [employer] Apps Indication:Annual Medicare Physical WITH abnormal findings (Renamed from Encounter for general adult medical examination with abnormal findings) Start:30-Aug-2021 Instruction Type:Patient Education Patient Instructions Indication:Abdominal pain, acute, right upper quadrant Start:26-Jul-2013 Instruction Type:Provider Instructions for Treatment Patient Instructions Indication:Abdominal pain, acute, right lower quadrant Start:04-Jun-2013 Instruction Type:Provider Instructions for Treatment Patient Instructions Indication:Abdominal pain, acute, right upper quadrant Start:27-May-2013 Instruction Type:Provider Instructions for Treatment [facility]; [facility] Work Phone: Instructions* Name Dates Details Patient Instructions Indication:Former smoker Start:22-Mar-2022 Instruction Type:Provider Instructions for Treatment How to Access Health Informa tion Online using Patient Portal and [employer] Apps Indication:Former smoker Start:22-Mar-2022 Instruction Type:Patient Education Patient Instructions Indication:BMI 28.0-28.9,adult Start:25-Jan-2022 Instruction Type:Provider Instructions for Treatment How to Access Health Informa tion Online using Patient Portal and [employer] Apps Indication:BMI 28.0-28.9,adult Start:25-Jan-2022 Instruction Type:Patient Education Patient Instructions Indication:MIKY (obstructive sleep apnea) Start:14-Dec-2021 Instruction Type:Provider Instructions for Treatment How to Access Health Informa tion Online using Patient Portal and [employer] Apps Indication:MIKY (obstructive sleep apnea) Start:14-Dec-2021 Instruction Type:Patient Education Patient Instructions Indication:Low back pain with left-sided sciatica Start:13-Oct-2021 Instruction Type:Provider Instructions for Treatment How to Access Health Informa tion Online using Patient Portal and [employer] Apps Indication:Low back pain with left-sided sciatica Start:13-Oct-2021 Instruction Type:Patient Education Patient Instructions Indication:Annual Medicare Physical WITH abnormal findings (Renamed from Encounter for general adult medical examination with abnormal findings) Start:30-Aug-2021 Instruction Type:Provider Instructions for Treatment How to Access Health Informa tion Online using Patient Portal and [employer] Apps Indication:Annual Medicare Physical WITH abnormal findings (Renamed from Encounter for general adult medical examination with abnormal findings) Start:30-Aug-2021 Instruction Type:Patient Education Patient Instructions Indication:Abdominal pain, acute, right upper quadrant Start:26-Jul-2013 Instruction Type:Provider Instructions for Treatment Patient Instructions Indication:Abdominal pain, acute, right lower quadrant Start:04-Jun-2013 Instruction Type:Provider Instructions for Treatment Patient Instructions Indication:Abdominal pain, acute, right upper quadrant Start:27-May-2013 Instruction Type:Provider Instructions for Treatment [facility]; [facility] Work Phone: Instructions* Name Dates Details Patient Instructions Indication:Former smoker Start:22-Mar-2022 Instruction Type:Provider Instructions for Treatment How to Access Health Informa tion Online using Patient Portal and [employer] Apps Indication:Former smoker Start:22-Mar-2022 Instruction Type:Patient Education Patient Instructions Indication:BMI 28.0-28.9,adult Start:25-Jan-2022 Instruction Type:Provider Instructions for Treatment How to Access Health Informa tion Online using Patient Portal and [employer] Apps Indication:BMI 28.0-28.9,adult Start:25-Jan-2022 Instruction Type:Patient Education Patient Instructions Indication:MIKY (obstructive sleep apnea) Start:14-Dec-2021 Instruction Type:Provider Instructions for Treatment How to Access Health Informa tion Online using Patient Portal and [employer] Apps Indication:MIKY (obstructive sleep apnea) Start:14-Dec-2021 Instruction Type:Patient Education Patient Instructions Indication:Low back pain with left-sided sciatica Start:13-Oct-2021 Instruction Type:Provider Instructions for Treatment How to Access Health Informa tion Online using Patient Portal and [employer] Apps Indication:Low back pain with left-sided sciatica Start:13-Oct-2021 Instruction Type:Patient Education Patient Instructions Indication:Annual Medicare Physical WITH abnormal findings (Renamed from Encounter for general adult medical examination with abnormal findings) Start:30-Aug-2021 Instruction Type:Provider Instructions for Treatment How to Access Health Informa tion Online using Patient Portal and [employer] Apps Indication:Annual Medicare Physical WITH abnormal findings (Renamed from Encounter for general adult medical examination with abnormal findings) Start:30-Aug-2021 Instruction Type:Patient Education Patient Instructions Indication:Abdominal pain, acute, right upper quadrant Start:26-Jul-2013 Instruction Type:Provider Instructions for Treatment Patient Instructions Indication:Abdominal pain, acute, right lower quadrant Start:04-Jun-2013 Instruction Type:Provider Instructions for Treatment Patient Instructions Indication:Abdominal pain, acute, right upper quadrant Start:27-May-2013 Instruction Type:Provider Instructions for Treatment [facility]; [facility] Work Phone: Instructions* Name Dates Details Patient Instructions Indication:Former smoker Start:22-Mar-2022 Instruction Type:Provider Instructions for Treatment How to Access Health Informa tion Online using Patient Portal and [employer] Apps Indication:Former smoker Start:22-Mar-2022 Instruction Type:Patient Education Patient Instructions Indication:BMI 28.0-28.9,adult Start:25-Jan-2022 Instruction Type:Provider Instructions for Treatment How to Access Health Informa tion Online using Patient Portal and [employer] Apps Indication:BMI 28.0-28.9,adult Start:25-Jan-2022 Instruction Type:Patient Education Patient Instructions Indication:MIKY (obstructive sleep apnea) Start:14-Dec-2021 Instruction Type:Provider Instructions for Treatment How to Access Health Informa tion Online using Patient Portal and [employer] Apps Indication:MIKY (obstructive sleep apnea) Start:14-Dec-2021 Instruction Type:Patient Education Patient Instructions Indication:Low back pain with left-sided sciatica Start:13-Oct-2021 Instruction Type:Provider Instructions for Treatment How to Access Health Informa tion Online using Patient Portal and [employer] Apps Indication:Low back pain with left-sided sciatica Start:13-Oct-2021 Instruction Type:Patient Education Patient Instructions Indication:Annual Medicare Physical WITH abnormal findings (Renamed from Encounter for general adult medical examination with abnormal findings) Start:30-Aug-2021 Instruction Type:Provider Instructions for Treatment How to Access Health Informa tion Online using Patient Portal and [employer] Apps Indication:Annual Medicare Physical WITH abnormal findings (Renamed from Encounter for general adult medical examination with abnormal findings) Start:30-Aug-2021 Instruction Type:Patient Education Patient Instructions Indication:Abdominal pain, acute, right upper quadrant Start:26-Jul-2013 Instruction Type:Provider Instructions for Treatment Patient Instructions Indication:Abdominal pain, acute, right lower quadrant Start:04-Jun-2013 Instruction Type:Provider Instructions for Treatment Patient Instructions Indication:Abdominal pain, acute, right upper quadrant Start:27-May-2013 Instruction Type:Provider Instructions for Treatment [facility]; [facility] Work Phone: Instructions* Name Dates Details Patient Instructions Indication:Former smoker Start:22-Mar-2022 Instruction Type:Provider Instructions for Treatment How to Access Health Informa tion Online using Patient Portal and [employer] Apps Indication:Former smoker Start:22-Mar-2022 Instruction Type:Patient Education Patient Instructions Indication:BMI 28.0-28.9,adult Start:25-Jan-2022 Instruction Type:Provider Instructions for Treatment How to Access Health Informa tion Online using Patient Portal and [employer] Apps Indication:BMI 28.0-28.9,adult Start:25-Jan-2022 Instruction Type:Patient Education Patient Instructions Indication:MIKY (obstructive sleep apnea) Start:14-Dec-2021 Instruction Type:Provider Instructions for Treatment How to Access Health Informa tion Online using Patient Portal and [employer] Apps Indication:MIKY (obstructive sleep apnea) Start:14-Dec-2021 Instruction Type:Patient Education Patient Instructions Indication:Low back pain with left-sided sciatica Start:13-Oct-2021 Instruction Type:Provider Instructions for Treatment How to Access Health Informa tion Online using Patient Portal and [employer] Apps Indication:Low back pain with left-sided sciatica Start:13-Oct-2021 Instruction Type:Patient Education Patient Instructions Indication:Annual Medicare Physical WITH abnormal findings (Renamed from Encounter for general adult medical examination with abnormal findings) Start:30-Aug-2021 Instruction Type:Provider Instructions for Treatment How to Access Health Informa tion Online using Patient Portal and [employer] Apps Indication:Annual Medicare Physical WITH abnormal findings (Renamed from Encounter for general adult medical examination with abnormal findings) Start:30-Aug-2021 Instruction Type:Patient Education Patient Instructions Indication:Abdominal pain, acute, right upper quadrant Start:26-Jul-2013 Instruction Type:Provider Instructions for Treatment Patient Instructions Indication:Abdominal pain, acute, right lower quadrant Start:04-Jun-2013 Instruction Type:Provider Instructions for Treatment Patient Instructions Indication:Abdominal pain, acute, right upper quadrant Start:27-May-2013 Instruction Type:Provider Instructions for Treatment [facility]; [facility] Work Phone: Instructions* Name Dates Details Patient Instructions Indication:Former smoker Start:22-Mar-2022 Instruction Type:Provider Instructions for Treatment How to Access Health Informa tion Online using Patient Portal and [employer] Apps Indication:Former smoker Start:22-Mar-2022 Instruction Type:Patient Education Patient Instructions Indication:BMI 28.0-28.9,adult Start:25-Jan-2022 Instruction Type:Provider Instructions for Treatment How to Access Health Informa tion Online using Patient Portal and [employer] Apps Indication:BMI 28.0-28.9,adult Start:25-Jan-2022 Instruction Type:Patient Education Patient Instructions Indication:MIKY (obstructive sleep apnea) Start:14-Dec-2021 Instruction Type:Provider Instructions for Treatment How to Access Health Informa tion Online using Patient Portal and [employer] Apps Indication:MIKY (obstructive sleep apnea) Start:14-Dec-2021 Instruction Type:Patient Education Patient Instructions Indication:Low back pain with left-sided sciatica Start:13-Oct-2021 Instruction Type:Provider Instructions for Treatment How to Access Health Informa tion Online using Patient [employer] and [employer] Indication:Low back pain with left-sided sciatica Start:13-Oct-2021 Instruction Type:Patient Education Patient Instructions Indication:Annual Medicare Physical WITH abnormal findings (Renamed from Encounter for general adult medical examination with abnormal findings) Start:30-Aug-2021 Instruction Type:Provider Instructions for Treatment How to Access Health Informa tion Online using Patient Portal and [employer] Apps Indication:Annual Medicare Physical WITH abnormal findings (Renamed from Encounter for general adult medical examination with abnormal findings) Start:30-Aug-2021 Instruction Type:Patient Education Patient Instructions Indication:Abdominal pain, acute, right upper quadrant Start:26-Jul-2013 Instruction Type:Provider Instructions for Treatment Patient Instructions Indication:Abdominal pain, acute, right lower quadrant Start:04-Jun-2013 Instruction Type:Provider Instructions for Treatment Patient Instructions Indication:Abdominal pain, acute, right upper quadrant Start:27-May-2013 Instruction Type:Provider Instructions for Treatment [facility]; [facility] Work Phone: Instructions* Name Dates Details Patient Instructions Indication:Orthostatic hypotension Start:22-Apr-2022 Instruction Type:Provider Instructions for Treatment How to Access Health Informa tion Online using Patient [employer] and [employer] Indication:Orthostatic hypotension Start:22-Apr-2022 Instruction Type:Patient Education Patient Instructions Indication:Former smoker Start:22-Mar-2022 Instruction Type:Provider Instructions for Treatment How to Access Health Informa tion Online using Patient [employer] and [employer] Indication:Former smoker Start:22-Mar-2022 Instruction Type:Patient Education Patient Instructions Indication:BMI 28.0-28.9,adult Start:25-Jan-2022 Instruction Type:Provider Instructions for Treatment How to Access Health Informa tion Online using Patient [employer] and [employer] Indication:BMI 28.0-28.9,adult Start:25-Jan-2022 Instruction Type:Patient Education Patient Instructions Indication:MIKY (obstructive sleep apnea) Start:14-Dec-2021 Instruction Type:Provider Instructions for Treatment How to Access Health Informa tion Online using Patient [employer] and [employer] Apps Indication:MIKY (obstructive sleep apnea) Start:14-Dec-2021 Instruction Type:Patient Education Patient Instructions Indication:Low back pain with left-sided sciatica Start:13-Oct-2021 Instruction Type:Provider Instructions for Treatment How to Access Health Informa tion Online using Patient Portal and [employer] Apps Indication:Low back pain with left-sided sciatica Start:13-Oct-2021 Instruction Type:Patient Education Patient Instructions Indication:Annual Medicare Physical WITH abnormal findings (Renamed from Encounter for general adult medical examination with abnormal findings) Start:30-Aug-2021 Instruction Type:Provider Instructions for Treatment How to Access Health Informa tion Online using Patient Portal and [employer] Apps Indication:Annual Medicare Physical WITH abnormal findings (Renamed from Encounter for general adult medical examination with abnormal findings) Start:30-Aug-2021 Instruction Type:Patient Education Patient Instructions Indication:Abdominal pain, acute, right upper quadrant Start:26-Jul-2013 Instruction Type:Provider Instructions for Treatment Patient Instructions Indication:Abdominal pain, acute, right lower quadrant Start:04-Jun-2013 Instruction Type:Provider Instructions for Treatment Patient Instructions Indication:Abdominal pain, acute, right upper quadrant Start:27-May-2013 Instruction Type:Provider Instructions for Treatment [facility]; [facility] Work Phone: Instructions* Name Dates Details Patient Instructions Indication:BMI 25.0-25.9,adult Start:25-Apr-2022 Instruction Type:Provider Instructions for Treatment How to Access Health Informa tion Online using Patient Portal and [employer] Apps Indication:BMI 25.0-25.9,adult Start:25-Apr-2022 Instruction Type:Patient Education Patient Instructions Indication:Orthostatic hypotension Start:22-Apr-2022 Instruction Type:Provider Instructions for Treatment How to Access Health Informa tion Online using Patient Portal and [employer] Apps Indication:Orthostatic hypotension Start:22-Apr-2022 Instruction Type:Patient Education Patient Instructions Indication:Former smoker Start:22-Mar-2022 Instruction Type:Provider Instructions for Treatment How to Access Health Informa tion Online using Patient Portal and [employer] Apps Indication:Former smoker Start:22-Mar-2022 Instruction Type:Patient Education Patient Instructions Indication:BMI 28.0-28.9,adult Start:25-Jan-2022 Instruction Type:Provider Instructions for Treatment How to Access Health Informa tion Online using Patient Portal and [employer] Apps Indication:BMI 28.0-28.9,adult Start:25-Jan-2022 Instruction Type:Patient Education Patient Instructions Indication:MIKY (obstructive sleep apnea) Start:14-Dec-2021 Instruction Type:Provider Instructions for Treatment How to Access Health Informa tion Online using Patient Portal and [employer] Apps Indication:MIKY (obstructive sleep apnea) Start:14-Dec-2021 Instruction Type:Patient Education Patient Instructions Indication:Low back pain with left-sided sciatica Start:13-Oct-2021 Instruction Type:Provider Instructions for Treatment How to Access Health Informa tion Online using Patient Portal and [employer] Apps Indication:Low back pain with left-sided sciatica Start:13-Oct-2021 Instruction Type:Patient Education Patient Instructions Indication:Annual Medicare Physical WITH abnormal findings (Renamed from Encounter for general adult medical examination with abnormal findings) Start:30-Aug-2021 Instruction Type:Provider Instructions for Treatment How to Access Health Informa tion Online using Patient Portal and [employer] Apps Indication:Annual Medicare Physical WITH abnormal findings (Renamed from Encounter for general adult medical examination with abnormal findings) Start:30-Aug-2021 Instruction Type:Patient Education Patient Instructions Indication:Abdominal pain, acute, right upper quadrant Start:26-Jul-2013 Instruction Type:Provider Instructions for Treatment Patient Instructions Indication:Abdominal pain, acute, right lower quadrant Start:04-Jun-2013 Instruction Type:Provider Instructions for Treatment Patient Instructions Indication:Abdominal pain, acute, right upper quadrant Start:27-May-2013 Instruction Type:Provider Instructions for Treatment [facility]; [facility] Work Phone: Instructions* Name Dates Details Patient Instructions Indication:BMI 25.0-25.9,adult Start:25-Apr-2022 Instruction Type:Provider Instructions for Treatment How to Access Health Informa tion Online using Patient Portal and [employer] Apps Indication:BMI 25.0-25.9,adult Start:25-Apr-2022 Instruction Type:Patient Education Patient Instructions Indication:Orthostatic hypotension Start:22-Apr-2022 Instruction Type:Provider Instructions for Treatment How to Access Health Informa tion Online using Patient Portal and [employer] Apps Indication:Orthostatic hypotension Start:22-Apr-2022 Instruction Type:Patient Education Patient Instructions Indication:Former smoker Start:22-Mar-2022 Instruction Type:Provider Instructions for Treatment How to Access Health Informa tion Online using Patient Portal and [employer] Apps Indication:Former smoker Start:22-Mar-2022 Instruction Type:Patient Education Patient Instructions Indication:BMI 28.0-28.9,adult Start:25-Jan-2022 Instruction Type:Provider Instructions for Treatment How to Access Health Informa tion Online using Patient Portal and [employer] Apps Indication:BMI 28.0-28.9,adult Start:25-Jan-2022 Instruction Type:Patient Education Patient Instructions Indication:MIKY (obstructive sleep apnea) Start:14-Dec-2021 Instruction Type:Provider Instructions for Treatment How to Access Health Informa tion Online using Patient Portal and [employer] Apps Indication:MIKY (obstructive sleep apnea) Start:14-Dec-2021 Instruction Type:Patient Education Patient Instructions Indication:Low back pain with left-sided sciatica Start:13-Oct-2021 Instruction Type:Provider Instructions for Treatment How to Access Health Informa tion Online using Patient Portal and [employer] Apps Indication:Low back pain with left-sided sciatica Start:13-Oct-2021 Instruction Type:Patient Education Patient Instructions Indication:Annual Medicare Physical WITH abnormal findings (Renamed from Encounter for general adult medical examination with abnormal findings) Start:30-Aug-2021 Instruction Type:Provider Instructions for Treatment How to Access Health Informa tion Online using Patient Portal and [employer] Apps Indication:Annual Medicare Physical WITH abnormal findings (Renamed from Encounter for general adult medical examination with abnormal findings) Start:30-Aug-2021 Instruction Type:Patient Education Patient Instructions Indication:Abdominal pain, acute, right upper quadrant Start:26-Jul-2013 Instruction Type:Provider Instructions for Treatment Patient Instructions Indication:Abdominal pain, acute, right lower quadrant Start:04-Jun-2013 Instruction Type:Provider Instructions for Treatment Patient Instructions Indication:Abdominal pain, acute, right upper quadrant Start:27-May-2013 Instruction Type:Provider Instructions for Treatment [facility]; [facility] Work Phone: Instructions* Name Dates Details Patient Instructions Indication:BMI 25.0-25.9,adult Start:25-Apr-2022 Instruction Type:Provider Instructions for Treatment How to Access Health Informa tion Online using Patient Portal and [employer] Apps Indication:BMI 25.0-25.9,adult Start:25-Apr-2022 Instruction Type:Patient Education Patient Instructions Indication:Orthostatic hypotension Start:22-Apr-2022 Instruction Type:Provider Instructions for Treatment How to Access Health Informa tion Online using Patient Portal and [employer] Apps Indication:Orthostatic hypotension Start:22-Apr-2022 Instruction Type:Patient Education Patient Instructions Indication:Former smoker Start:22-Mar-2022 Instruction Type:Provider Instructions for Treatment How to Access Health Informa tion Online using Patient Portal and [employer] Apps Indication:Former smoker Start:22-Mar-2022 Instruction Type:Patient Education Patient Instructions Indication:BMI 28.0-28.9,adult Start:25-Jan-2022 Instruction Type:Provider Instructions for Treatment How to Access Health Informa tion Online using Patient Portal and [employer] Apps Indication:BMI 28.0-28.9,adult Start:25-Jan-2022 Instruction Type:Patient Education Patient Instructions Indication:MIKY (obstructive sleep apnea) Start:14-Dec-2021 Instruction Type:Provider Instructions for Treatment How to Access Health Informa tion Online using Patient Portal and [employer] Apps Indication:MIKY (obstructive sleep apnea) Start:14-Dec-2021 Instruction Type:Patient Education Patient Instructions Indication:Low back pain with left-sided sciatica Start:13-Oct-2021 Instruction Type:Provider Instructions for Treatment How to Access Health Informa tion Online using Patient Portal and [employer] Apps Indication:Low back pain with left-sided sciatica Start:13-Oct-2021 Instruction Type:Patient Education Patient Instructions Indication:Annual Medicare Physical WITH abnormal findings (Renamed from Encounter for general adult medical examination with abnormal findings) Start:30-Aug-2021 Instruction Type:Provider Instructions for Treatment How to Access Health Informa tion Online using Patient Portal and [employer] Apps Indication:Annual Medicare Physical WITH abnormal findings (Renamed from Encounter for general adult medical examination with abnormal findings) Start:30-Aug-2021 Instruction Type:Patient Education Patient Instructions Indication:Abdominal pain, acute, right upper quadrant Start:26-Jul-2013 Instruction Type:Provider Instructions for Treatment Patient Instructions Indication:Abdominal pain, acute, right lower quadrant Start:04-Jun-2013 Instruction Type:Provider Instructions for Treatment Patient Instructions Indication:Abdominal pain, acute, right upper quadrant Start:27-May-2013 Instruction Type:Provider Instructions for Treatment [facility]; [facility] Work Phone: Instructions* Name Dates Details Patient Instructions Indication:Umbilical hernia Start:26-May-2022 Instruction Type:Provider Instructions for Treatment How to Access Health Informa tion Online using Patient Portal and [employer] Apps Indication:Umbilical hernia Start:26-May-2022 Instruction Type:Patient Education Patient Instructions Indication:BMI 25.0-25.9,adult Start:25-Apr-2022 Instruction Type:Provider Instructions for Treatment How to Access Health Informa tion Online using Patient Portal and [employer] Apps Indication:BMI 25.0-25.9,adult Start:25-Apr-2022 Instruction Type:Patient Education Patient Instructions Indication:Orthostatic hypotension Start:22-Apr-2022 Instruction Type:Provider Instructions for Treatment How to Access Health Informa tion Online using Patient Portal and [employer] Apps Indication:Orthostatic hypotension Start:22-Apr-2022 Instruction Type:Patient Education Patient Instructions Indication:Former smoker Start:22-Mar-2022 Instruction Type:Provider Instructions for Treatment How to Access Health Informa tion Online using Patient Portal and [employer] Apps Indication:Former smoker Start:22-Mar-2022 Instruction Type:Patient Education Patient Instructions Indication:BMI 28.0-28.9,adult Start:25-Jan-2022 Instruction Type:Provider Instructions for Treatment How to Access Health Informa tion Online using Patient Portal and [employer] Apps Indication:BMI 28.0-28.9,adult Start:25-Jan-2022 Instruction Type:Patient Education Patient Instructions Indication:MIKY (obstructive sleep apnea) Start:14-Dec-2021 Instruction Type:Provider Instructions for Treatment How to Access Health Informa tion Online using Patient Portal and [employer] Apps Indication:MIKY (obstructive sleep apnea) Start:14-Dec-2021 Instruction Type:Patient Education Patient Instructions Indication:Low back pain with left-sided sciatica Start:13-Oct-2021 Instruction Type:Provider Instructions for Treatment How to Access Health Informa tion Online using Patient Portal and [employer] Apps Indication:Low back pain with left-sided sciatica Start:13-Oct-2021 Instruction Type:Patient Education Patient Instructions Indication:Annual Medicare Physical WITH abnormal findings (Renamed from Encounter for general adult medical examination with abnormal findings) Start:30-Aug-2021 Instruction Type:Provider Instructions for Treatment How to Access Health Informa tion Online using Patient Portal and [employer] Apps Indication:Annual Medicare Physical WITH abnormal findings (Renamed from Encounter for general adult medical examination with abnormal findings) Start:30-Aug-2021 Instruction Type:Patient Education Patient Instructions Indication:Abdominal pain, acute, right upper quadrant Start:26-Jul-2013 Instruction Type:Provider Instructions for Treatment Patient Instructions Indication:Abdominal pain, acute, right lower quadrant Start:04-Jun-2013 Instruction Type:Provider Instructions for Treatment Patient Instructions Indication:Abdominal pain, acute, right upper quadrant Start:27-May-2013 Instruction Type:Provider Instructions for Treatment [facility]; [facility] Work Phone: Instructions* Name Dates Details Patient Instructions Indication:Former smoker Start:02-Jun-2022 Instruction Type:Provider Instructions for Treatment How to Access Health Informa tion Online using Patient Portal and [employer] Apps Indication:Former smoker Start:02-Jun-2022 Instruction Type:Patient Education Patient Instructions Indication:Umbilical hernia Start:26-May-2022 Instruction Type:Provider Instructions for Treatment How to Access Health Informa tion Online using Patient Portal and [employer] Apps Indication:Umbilical hernia Start:26-May-2022 Instruction Type:Patient Education Patient Instructions Indication:BMI 25.0-25.9,adult Start:25-Apr-2022 Instruction Type:Provider Instructions for Treatment How to Access Health Informa tion Online using Patient Portal and [employer] Apps Indication:BMI 25.0-25.9,adult Start:25-Apr-2022 Instruction Type:Patient Education Patient Instructions Indication:Orthostatic hypotension Start:22-Apr-2022 Instruction Type:Provider Instructions for Treatment How to Access Health Informa tion Online using Patient Portal and [employer] Apps Indication:Orthostatic hypotension Start:22-Apr-2022 Instruction Type:Patient Education Patient Instructions Indication:Former smoker Start:22-Mar-2022 Instruction Type:Provider Instructions for Treatment How to Access Health Informa tion Online using Patient Portal and [employer] Apps Indication:Former smoker Start:22-Mar-2022 Instruction Type:Patient Education Patient Instructions Indication:BMI 28.0-28.9,adult Start:25-Jan-2022 Instruction Type:Provider Instructions for Treatment How to Access Health Informa tion Online using Patient Portal and [employer] Apps Indication:BMI 28.0-28.9,adult Start:25-Jan-2022 Instruction Type:Patient Education Patient Instructions Indication:MIKY (obstructive sleep apnea) Start:14-Dec-2021 Instruction Type:Provider Instructions for Treatment How to Access Health Informa tion Online using Patient Portal and [employer] Apps Indication:MIKY (obstructive sleep apnea) Start:14-Dec-2021 Instruction Type:Patient Education Patient Instructions Indication:Low back pain with left-sided sciatica Start:13-Oct-2021 Instruction Type:Provider Instructions for Treatment How to Access Health Informa tion Online using Patient Portal and [employer]rd [employer] Apps Indication:Low back pain with left-sided sciatica Start:13-Oct-2021 Instruction Type:Patient Education Patient Instructions Indication:Annual Medicare Physical WITH abnormal findings (Renamed from Encounter for general adult medical examination with abnormal findings) Start:30-Aug-2021 Instruction Type:Provider Instructions for Treatment How to Access Health Informa tion Online using Patient Portal and [employer] Apps Indication:Annual Medicare Physical WITH abnormal findings (Renamed from Encounter for general adult medical examination with abnormal findings) Start:30-Aug-2021 Instruction Type:Patient Education Patient Instructions Indication:Abdominal pain, acute, right upper quadrant Start:26-Jul-2013 Instruction Type:Provider Instructions for Treatment Patient Instructions Indication:Abdominal pain, acute, right lower quadrant Start:04-Jun-2013 Instruction Type:Provider Instructions for Treatment Patient Instructions Indication:Abdominal pain, acute, right upper quadrant Start:27-May-2013 Instruction Type:Provider Instructions for Treatment [facility]; [facility] Work Phone: Instructions* Name Dates Details Patient Instructions Indication:Former smoker Start:23-Jun-2022 Instruction Type:Provider Instructions for Treatment How to Access Health Informa tion Online using Patient Portal and [employer] Apps Indication:Former smoker Start:23-Jun-2022 Instruction Type:Patient Education Patient Instructions Indication:Former smoker Start:02-Jun-2022 Instruction Type:Provider Instructions for Treatment How to Access Health Informa tion Online using Patient Portal and [employer]rd [employer] Apps Indication:Former smoker Start:02-Jun-2022 Instruction Type:Patient Education Patient Instructions Indication:Umbilical hernia Start:26-May-2022 Instruction Type:Provider Instructions for Treatment How to Access Health Informa tion Online using Patient Portal and [employer] Apps Indication:Umbilical hernia Start:26-May-2022 Instruction Type:Patient Education Patient Instructions Indication:BMI 25.0-25.9,adult Start:25-Apr-2022 Instruction Type:Provider Instructions for Treatment How to Access Health Informa tion Online using Patient Portal and [employer] Apps Indication:BMI 25.0-25.9,adult Start:25-Apr-2022 Instruction Type:Patient Education Patient Instructions Indication:Orthostatic hypotension Start:22-Apr-2022 Instruction Type:Provider Instructions for Treatment How to Access Health Informa tion Online using Patient Portal and [employer]rd [employer] Apps Indication:Orthostatic hypotension Start:22-Apr-2022 Instruction Type:Patient Education Patient Instructions Indication:Former smoker Start:22-Mar-2022 Instruction Type:Provider Instructions for Treatment How to Access Health Informa tion Online using Patient Portal and [employer] Apps Indication:Former smoker Start:22-Mar-2022 Instruction Type:Patient Education Patient Instructions Indication:BMI 28.0-28.9,adult Start:25-Jan-2022 Instruction Type:Provider Instructions for Treatment How to Access Health Informa tion Online using Patient Portal and [employer] Apps Indication:BMI 28.0-28.9,adult Start:25-Jan-2022 Instruction Type:Patient Education Patient Instructions Indication:MIKY (obstructive sleep apnea) Start:14-Dec-2021 Instruction Type:Provider Instructions for Treatment How to Access Health Informa tion Online using Patient Portal and [employer] Apps Indication:MIKY (obstructive sleep apnea) Start:14-Dec-2021 Instruction Type:Patient Education Patient Instructions Indication:Low back pain with left-sided sciatica Start:13-Oct-2021 Instruction Type:Provider Instructions for Treatment How to Access Health Informa tion Online using Patient Portal and [employer] Apps Indication:Low back pain with left-sided sciatica Start:13-Oct-2021 Instruction Type:Patient Education Patient Instructions Indication:Annual Medicare Physical WITH abnormal findings (Renamed from Encounter for general adult medical examination with abnormal findings) Start:30-Aug-2021 Instruction Type:Provider Instructions for Treatment How to Access Health Informa tion Online using Patient Portal and [employer] Apps Indication:Annual Medicare Physical WITH abnormal findings (Renamed from Encounter for general adult medical examination with abnormal findings) Start:30-Aug-2021 Instruction Type:Patient Education Patient Instructions Indication:Abdominal pain, acute, right upper quadrant Start:26-Jul-2013 Instruction Type:Provider Instructions for Treatment Patient Instructions Indication:Abdominal pain, acute, right lower quadrant Start:04-Jun-2013 Instruction Type:Provider Instructions for Treatment Patient Instructions Indication:Abdominal pain, acute, right upper quadrant Start:27-May-2013 Instruction Type:Provider Instructions for Treatment [facility]; [facility] Work Phone: Instructions* Name Dates Details Patient Instructions Indication:Former smoker Start:23-Jun-2022 Instruction Type:Provider Instructions for Treatment How to Access Health Informa tion Online using Patient Portal and [employer] Apps Indication:Former smoker Start:23-Jun-2022 Instruction Type:Patient Education Patient Instructions Indication:Former smoker Start:02-Jun-2022 Instruction Type:Provider Instructions for Treatment How to Access Health Informa tion Online using Patient Portal and [employer] Apps Indication:Former smoker Start:02-Jun-2022 Instruction Type:Patient Education Patient Instructions Indication:Umbilical hernia Start:26-May-2022 Instruction Type:Provider Instructions for Treatment How to Access Health Informa tion Online using Patient Portal and [employer] Apps Indication:Umbilical hernia Start:26-May-2022 Instruction Type:Patient Education Patient Instructions Indication:BMI 25.0-25.9,adult Start:25-Apr-2022 Instruction Type:Provider Instructions for Treatment How to Access Health Informa tion Online using Patient Portal and [employer] Apps Indication:BMI 25.0-25.9,adult Start:25-Apr-2022 Instruction Type:Patient Education Patient Instructions Indication:Orthostatic hypotension Start:22-Apr-2022 Instruction Type:Provider Instructions for Treatment How to Access Health Informa tion Online using Patient Portal and [employer] Apps Indication:Orthostatic hypotension Start:22-Apr-2022 Instruction Type:Patient Education Patient Instructions Indication:Former smoker Start:22-Mar-2022 Instruction Type:Provider Instructions for Treatment How to Access Health Informa tion Online using Patient Portal and [employer] Apps Indication:Former smoker Start:22-Mar-2022 Instruction Type:Patient Education Patient Instructions Indication:BMI 28.0-28.9,adult Start:25-Jan-2022 Instruction Type:Provider Instructions for Treatment How to Access Health Informa tion Online using Patient Portal and [employer] Apps Indication:BMI 28.0-28.9,adult Start:25-Jan-2022 Instruction Type:Patient Education Patient Instructions Indication:MIKY (obstructive sleep apnea) Start:14-Dec-2021 Instruction Type:Provider Instructions for Treatment How to Access Health Informa tion Online using Patient Portal and [employer] Apps Indication:MIKY (obstructive sleep apnea) Start:14-Dec-2021 Instruction Type:Patient Education Patient Instructions Indication:Low back pain with left-sided sciatica Start:13-Oct-2021 Instruction Type:Provider Instructions for Treatment How to Access Health Informa tion Online using Patient Portal and [employer] Apps Indication:Low back pain with left-sided sciatica Start:13-Oct-2021 Instruction Type:Patient Education Patient Instructions Indication:Annual Medicare Physical WITH abnormal findings (Renamed from Encounter for general adult medical examination with abnormal findings) Start:30-Aug-2021 Instruction Type:Provider Instructions for Treatment How to Access Health Informa tion Online using Patient Portal and [employer] Apps Indication:Annual Medicare Physical WITH abnormal findings (Renamed from Encounter for general adult medical examination with abnormal findings) Start:30-Aug-2021 Instruction Type:Patient Education Patient Instructions Indication:Abdominal pain, acute, right upper quadrant Start:26-Jul-2013 Instruction Type:Provider Instructions for Treatment Patient Instructions Indication:Abdominal pain, acute, right lower quadrant Start:04-Jun-2013 Instruction Type:Provider Instructions for Treatment Patient Instructions Indication:Abdominal pain, acute, right upper quadrant Start:27-May-2013 Instruction Type:Provider Instructions for Treatment [facility]; [facility] Work Phone: Instructions* Name Dates Details Patient Instructions Indication:Former smoker Start:23-Jun-2022 Instruction Type:Provider Instructions for Treatment How to Access Health Informa tion Online using Patient Portal and [employer] Apps Indication:Former smoker Start:23-Jun-2022 Instruction Type:Patient Education Patient Instructions Indication:Former smoker Start:02-Jun-2022 Instruction Type:Provider Instructions for Treatment How to Access Health Informa tion Online using Patient Portal and [employer] Apps Indication:Former smoker Start:02-Jun-2022 Instruction Type:Patient Education Patient Instructions Indication:Umbilical hernia Start:26-May-2022 Instruction Type:Provider Instructions for Treatment How to Access Health Informa tion Online using Patient Portal and [employer] Apps Indication:Umbilical hernia Start:26-May-2022 Instruction Type:Patient Education Patient Instructions Indication:BMI 25.0-25.9,adult Start:25-Apr-2022 Instruction Type:Provider Instructions for Treatment How to Access Health Informa tion Online using Patient Portal and [employer] Apps Indication:BMI 25.0-25.9,adult Start:25-Apr-2022 Instruction Type:Patient Education Patient Instructions Indication:Orthostatic hypotension Start:22-Apr-2022 Instruction Type:Provider Instructions for Treatment How to Access Health Informa tion Online using Patient Portal and [employer] Apps Indication:Orthostatic hypotension Start:22-Apr-2022 Instruction Type:Patient Education Patient Instructions Indication:Former smoker Start:22-Mar-2022 Instruction Type:Provider Instructions for Treatment How to Access Health Informa tion Online using Patient Portal and [employer] Apps Indication:Former smoker Start:22-Mar-2022 Instruction Type:Patient Education Patient Instructions Indication:BMI 28.0-28.9,adult Start:25-Jan-2022 Instruction Type:Provider Instructions for Treatment How to Access Health Informa tion Online using Patient Portal and [employer] Apps Indication:BMI 28.0-28.9,adult Start:25-Jan-2022 Instruction Type:Patient Education Patient Instructions Indication:MIKY (obstructive sleep apnea) Start:14-Dec-2021 Instruction Type:Provider Instructions for Treatment How to Access Health Informa tion Online using Patient Portal and [employer] Apps Indication:MIKY (obstructive sleep apnea) Start:14-Dec-2021 Instruction Type:Patient Education Patient Instructions Indication:Low back pain with left-sided sciatica Start:13-Oct-2021 Instruction Type:Provider Instructions for Treatment How to Access Health Informa tion Online using Patient Portal and [employer] Apps Indication:Low back pain with left-sided sciatica Start:13-Oct-2021 Instruction Type:Patient Education Patient Instructions Indication:Annual Medicare Physical WITH abnormal findings (Renamed from Encounter for general adult medical examination with abnormal findings) Start:30-Aug-2021 Instruction Type:Provider Instructions for Treatment How to Access Health Informa tion Online using Patient Portal and [employer] Apps Indication:Annual Medicare Physical WITH abnormal findings (Renamed from Encounter for general adult medical examination with abnormal findings) Start:30-Aug-2021 Instruction Type:Patient Education Patient Instructions Indication:Abdominal pain, acute, right upper quadrant Start:26-Jul-2013 Instruction Type:Provider Instructions for Treatment Patient Instructions Indication:Abdominal pain, acute, right lower quadrant Start:04-Jun-2013 Instruction Type:Provider Instructions for Treatment Patient Instructions Indication:Abdominal pain, acute, right upper quadrant Start:27-May-2013 Instruction Type:Provider Instructions for Treatment [facility]; [facility] Work Phone: [phone]* Name Dates Details Patient Instructions Indication:Former smoker Start:23-Jun-2022 Instruction Type:Provider Instructions for Treatment How to Access Health Informa tion Online using Patient Portal and [employer] Apps Indication:Former smoker Start:23-Jun-2022 Instruction Type:Patient Education Patient Instructions Indication:Former smoker Start:02-Jun-2022 Instruction Type:Provider Instructions for Treatment How to Access Health Informa tion Online using Patient Portal and [employer] Apps Indication:Former smoker Start:02-Jun-2022 Instruction Type:Patient Education Patient Instructions Indication:Umbilical hernia Start:26-May-2022 Instruction Type:Provider Instructions for Treatment How to Access Health Informa tion Online using Patient Portal and [employer] Apps Indication:Umbilical hernia Start:26-May-2022 Instruction Type:Patient Education Patient Instructions Indication:BMI 25.0-25.9,adult Start:25-Apr-2022 Instruction Type:Provider Instructions for Treatment How to Access Health Informa tion Online using Patient Portal and [employer] Apps Indication:BMI 25.0-25.9,adult Start:25-Apr-2022 Instruction Type:Patient Education Patient Instructions Indication:Orthostatic hypotension Start:22-Apr-2022 Instruction Type:Provider Instructions for Treatment How to Access Health Informa tion Online using Patient Portal and [employer] Apps Indication:Orthostatic hypotension Start:22-Apr-2022 Instruction Type:Patient Education Patient Instructions Indication:Former smoker Start:22-Mar-2022 Instruction Type:Provider Instructions for Treatment How to Access Health Informa tion Online using Patient Portal and [employer] Apps Indication:Former smoker Start:22-Mar-2022 Instruction Type:Patient Education Patient Instructions Indication:BMI 28.0-28.9,adult Start:25-Jan-2022 Instruction Type:Provider Instructions for Treatment How to Access Health Informa tion Online using Patient Portal and [employer] Apps Indication:BMI 28.0-28.9,adult Start:25-Jan-2022 Instruction Type:Patient Education Patient Instructions Indication:MIKY (obstructive sleep apnea) Start:14-Dec-2021 Instruction Type:Provider Instructions for Treatment How to Access Health Informa tion Online using Patient Portal and [employer] Apps Indication:MIKY (obstructive sleep apnea) Start:14-Dec-2021 Instruction Type:Patient Education Patient Instructions Indication:Low back pain with left-sided sciatica Start:13-Oct-2021 Instruction Type:Provider Instructions for Treatment How to Access Health Informa tion Online using Patient Portal and [employer] Apps Indication:Low back pain with left-sided sciatica Start:13-Oct-2021 Instruction Type:Patient Education Patient Instructions Indication:Annual Medicare Physical WITH abnormal findings (Renamed from Encounter for general adult medical examination with abnormal findings) Start:30-Aug-2021 Instruction Type:Provider Instructions for Treatment How to Access Health Informa tion Online using Patient Portal and [employer] Apps Indication:Annual Medicare Physical WITH abnormal findings (Renamed from Encounter for general adult medical examination with abnormal findings) Start:30-Aug-2021 Instruction Type:Patient Education Patient Instructions Indication:Abdominal pain, acute, right upper quadrant Start:26-Jul-2013 Instruction Type:Provider Instructions for Treatment Patient Instructions Indication:Abdominal pain, acute, right lower quadrant Start:04-Jun-2013 Instruction Type:Provider Instructions for Treatment Patient Instructions Indication:Abdominal pain, acute, right upper quadrant Start:27-May-2013 Instruction Type:Provider Instructions for Treatment [facility]; [facility] Work Phone: Instructions* Name Dates Details Patient Instructions Indication:Former smoker Start:23-Jun-2022 Instruction Type:Provider Instructions for Treatment How to Access Health Informa tion Online using Patient Portal and [employer] Apps Indication:Former smoker Start:23-Jun-2022 Instruction Type:Patient Education Patient Instructions Indication:Former smoker Start:02-Jun-2022 Instruction Type:Provider Instructions for Treatment How to Access Health Informa tion Online using Patient Portal and [employer] Apps Indication:Former smoker Start:02-Jun-2022 Instruction Type:Patient Education Patient Instructions Indication:Umbilical hernia Start:26-May-2022 Instruction Type:Provider Instructions for Treatment How to Access Health Informa tion Online using Patient Portal and [employer] Apps Indication:Umbilical hernia Start:26-May-2022 Instruction Type:Patient Education Patient Instructions Indication:BMI 25.0-25.9,adult Start:25-Apr-2022 Instruction Type:Provider Instructions for Treatment How to Access Health Informa tion Online using Patient Portal and [employer] Apps Indication:BMI 25.0-25.9,adult Start:25-Apr-2022 Instruction Type:Patient Education Patient Instructions Indication:Orthostatic hypotension Start:22-Apr-2022 Instruction Type:Provider Instructions for Treatment How to Access Health Informa tion Online using Patient Portal and [employer] Apps Indication:Orthostatic hypotension Start:22-Apr-2022 Instruction Type:Patient Education Patient Instructions Indication:Former smoker Start:22-Mar-2022 Instruction Type:Provider Instructions for Treatment How to Access Health Informa tion Online using Patient Portal and [employer] Apps Indication:Former smoker Start:22-Mar-2022 Instruction Type:Patient Education Patient Instructions Indication:BMI 28.0-28.9,adult Start:25-Jan-2022 Instruction Type:Provider Instructions for Treatment How to Access Health Informa tion Online using Patient Portal and [employer] Apps Indication:BMI 28.0-28.9,adult Start:25-Jan-2022 Instruction Type:Patient Education Patient Instructions Indication:MIKY (obstructive sleep apnea) Start:14-Dec-2021 Instruction Type:Provider Instructions for Treatment How to Access Health Informa tion Online using Patient Portal and [employer] Apps Indication:MIKY (obstructive sleep apnea) Start:14-Dec-2021 Instruction Type:Patient Education Patient Instructions Indication:Low back pain with left-sided sciatica Start:13-Oct-2021 Instruction Type:Provider Instructions for Treatment How to Access Health Informa tion Online using Patient Portal and [employer] Apps Indication:Low back pain with left-sided sciatica Start:13-Oct-2021 Instruction Type:Patient Education Patient Instructions Indication:Annual Medicare Physical WITH abnormal findings (Renamed from Encounter for general adult medical examination with abnormal findings) Start:30-Aug-2021 Instruction Type:Provider Instructions for Treatment How to Access Health Informa tion Online using Patient Portal and [employer] Apps Indication:Annual Medicare Physical WITH abnormal findings (Renamed from Encounter for general adult medical examination with abnormal findings) Start:30-Aug-2021 Instruction Type:Patient Education Patient Instructions Indication:Abdominal pain, acute, right upper quadrant Start:26-Jul-2013 Instruction Type:Provider Instructions for Treatment Patient Instructions Indication:Abdominal pain, acute, right lower quadrant Start:04-Jun-2013 Instruction Type:Provider Instructions for Treatment Patient Instructions Indication:Abdominal pain, acute, right upper quadrant Start:27-May-2013 Instruction Type:Provider Instructions for Treatment [facility]; [facility] Work Phone: Instructions* Name Dates Details Patient Instructions Indication:Former smoker Start:23-Jun-2022 Instruction Type:Provider Instructions for Treatment How to Access Health Informa tion Online using Patient Portal and [employer] Apps Indication:Former smoker Start:23-Jun-2022 Instruction Type:Patient Education Patient Instructions Indication:Former smoker Start:02-Jun-2022 Instruction Type:Provider Instructions for Treatment How to Access Health Informa tion Online using Patient Portal and [employer] Apps Indication:Former smoker Start:02-Jun-2022 Instruction Type:Patient Education Patient Instructions Indication:Umbilical hernia Start:26-May-2022 Instruction Type:Provider Instructions for Treatment How to Access Health Informa tion Online using Patient Portal and [employer] Apps Indication:Umbilical hernia Start:26-May-2022 Instruction Type:Patient Education Patient Instructions Indication:BMI 25.0-25.9,adult Start:25-Apr-2022 Instruction Type:Provider Instructions for Treatment How to Access Health Informa tion Online using Patient Portal and [employer] Apps Indication:BMI 25.0-25.9,adult Start:25-Apr-2022 Instruction Type:Patient Education Patient Instructions Indication:Orthostatic hypotension Start:22-Apr-2022 Instruction Type:Provider Instructions for Treatment How to Access Health Informa tion Online using Patient Portal and [employer] Apps Indication:Orthostatic hypotension Start:22-Apr-2022 Instruction Type:Patient Education Patient Instructions Indication:Former smoker Start:22-Mar-2022 Instruction Type:Provider Instructions for Treatment How to Access Health Informa tion Online using Patient Portal and [employer] Apps Indication:Former smoker Start:22-Mar-2022 Instruction Type:Patient Education Patient Instructions Indication:BMI 28.0-28.9,adult Start:25-Jan-2022 Instruction Type:Provider Instructions for Treatment How to Access Health Informa tion Online using Patient Portal and [employer] Apps Indication:BMI 28.0-28.9,adult Start:25-Jan-2022 Instruction Type:Patient Education Patient Instructions Indication:MIKY (obstructive sleep apnea) Start:14-Dec-2021 Instruction Type:Provider Instructions for Treatment How to Access Health Informa tion Online using Patient Portal and [employer] Apps Indication:MIKY (obstructive sleep apnea) Start:14-Dec-2021 Instruction Type:Patient Education Patient Instructions Indication:Low back pain with left-sided sciatica Start:13-Oct-2021 Instruction Type:Provider Instructions for Treatment How to Access Health Informa tion Online using Patient Portal and [employer] Apps Indication:Low back pain with left-sided sciatica Start:13-Oct-2021 Instruction Type:Patient Education Patient Instructions Indication:Annual Medicare Physical WITH abnormal findings (Renamed from Encounter for general adult medical examination with abnormal findings) Start:30-Aug-2021 Instruction Type:Provider Instructions for Treatment How to Access Health Informa tion Online using Patient Portal and [employer] Apps Indication:Annual Medicare Physical WITH abnormal findings (Renamed from Encounter for general adult medical examination with abnormal findings) Start:30-Aug-2021 Instruction Type:Patient Education Patient Instructions Indication:Abdominal pain, acute, right upper quadrant Start:26-Jul-2013 Instruction Type:Provider Instructions for Treatment Patient Instructions Indication:Abdominal pain, acute, right lower quadrant Start:04-Jun-2013 Instruction Type:Provider Instructions for Treatment Patient Instructions Indication:Abdominal pain, acute, right upper quadrant Start:27-May-2013 Instruction Type:Provider Instructions for Treatment [facility]; [facility] Work Phone: Instructions* Name Dates Details Patient Instructions Indication:Former smoker Start:23-Jun-2022 Instruction Type:Provider Instructions for Treatment How to Access Health Informa tion Online using Patient Portal and [employer] Apps Indication:Former smoker Start:23-Jun-2022 Instruction Type:Patient Education Patient Instructions Indication:Former smoker Start:02-Jun-2022 Instruction Type:Provider Instructions for Treatment How to Access Health Informa tion Online using Patient Portal and [employer] Apps Indication:Former smoker Start:02-Jun-2022 Instruction Type:Patient Education Patient Instructions Indication:Umbilical hernia Start:26-May-2022 Instruction Type:Provider Instructions for Treatment How to Access Health Informa tion Online using Patient Portal and [employer] Apps Indication:Umbilical hernia Start:26-May-2022 Instruction Type:Patient Education Patient Instructions Indication:BMI 25.0-25.9,adult Start:25-Apr-2022 Instruction Type:Provider Instructions for Treatment How to Access Health Informa tion Online using Patient Portal and [employer] Apps Indication:BMI 25.0-25.9,adult Start:25-Apr-2022 Instruction Type:Patient Education Patient Instructions Indication:Orthostatic hypotension Start:22-Apr-2022 Instruction Type:Provider Instructions for Treatment How to Access Health Informa tion Online using Patient Portal and [employer] Apps Indication:Orthostatic hypotension Start:22-Apr-2022 Instruction Type:Patient Education Patient Instructions Indication:Former smoker Start:22-Mar-2022 Instruction Type:Provider Instructions for Treatment How to Access Health Informa tion Online using Patient Portal and [employer] Apps Indication:Former smoker Start:22-Mar-2022 Instruction Type:Patient Education Patient Instructions Indication:BMI 28.0-28.9,adult Start:25-Jan-2022 Instruction Type:Provider Instructions for Treatment How to Access Health Informa tion Online using Patient Portal and [employer] Apps Indication:BMI 28.0-28.9,adult Start:25-Jan-2022 Instruction Type:Patient Education Patient Instructions Indication:MIKY (obstructive sleep apnea) Start:14-Dec-2021 Instruction Type:Provider Instructions for Treatment How to Access Health Informa tion Online using Patient Portal and [employer] Apps Indication:MIKY (obstructive sleep apnea) Start:14-Dec-2021 Instruction Type:Patient Education Patient Instructions Indication:Low back pain with left-sided sciatica Start:13-Oct-2021 Instruction Type:Provider Instructions for Treatment How to Access Health Informa tion Online using Patient Portal and [employer] Apps Indication:Low back pain with left-sided sciatica Start:13-Oct-2021 Instruction Type:Patient Education Patient Instructions Indication:Annual Medicare Physical WITH abnormal findings (Renamed from Encounter for general adult medical examination with abnormal findings) Start:30-Aug-2021 Instruction Type:Provider Instructions for Treatment How to Access Health Informa tion Online using Patient Portal and [employer] Indication:Annual Medicare Physical WITH abnormal findings (Renamed from Encounter for general adult medical examination with abnormal findings) Start:30-Aug-2021 Instruction Type:Patient Education Patient Instructions Indication:Abdominal pain, acute, right upper quadrant Start:26-Jul-2013 Instruction Type:Provider Instructions for Treatment Patient Instructions Indication:Abdominal pain, acute, right lower quadrant Start:04-Jun-2013 Instruction Type:Provider Instructions for Treatment Patient Instructions Indication:Abdominal pain, acute, right upper quadrant Start:27-May-2013 Instruction Type:Provider Instructions for Treatment [facility]; [facility] Work Phone: Instructions* Name Dates Details Patient Instructions Indication:BMI 25.0-25.9,adult Start:03-Oct-2022 Instruction Type:Provider Instructions for Treatment How to Access Health Informa tion Online using Patient Portal and [employer] Apps Indication:BMI 25.0-25.9,adult Start:03-Oct-2022 Instruction Type:Patient Education Patient Instructions Indication:Former smoker Start:23-Jun-2022 Instruction Type:Provider Instructions for Treatment How to Access Health Informa tion Online using Patient Portal and [employer] Apps Indication:Former smoker Start:23-Jun-2022 Instruction Type:Patient Education Patient Instructions Indication:Former smoker Start:02-Jun-2022 Instruction Type:Provider Instructions for Treatment How to Access Health Informa tion Online using Patient Portal and [employer] Apps Indication:Former smoker Start:02-Jun-2022 Instruction Type:Patient Education Patient Instructions Indication:Umbilical hernia Start:26-May-2022 Instruction Type:Provider Instructions for Treatment How to Access Health Informa tion Online using Patient Portal and [employer] Apps Indication:Umbilical hernia Start:26-May-2022 Instruction Type:Patient Education Patient Instructions Indication:BMI 25.0-25.9,adult Start:25-Apr-2022 Instruction Type:Provider Instructions for Treatment How to Access Health Informa tion Online using Patient Portal and [employer] Apps Indication:BMI 25.0-25.9,adult Start:25-Apr-2022 Instruction Type:Patient Education Patient Instructions Indication:Orthostatic hypotension Start:22-Apr-2022 Instruction Type:Provider Instructions for Treatment How to Access Health Informa tion Online using Patient Portal and [employer] Apps Indication:Orthostatic hypotension Start:22-Apr-2022 Instruction Type:Patient Education Patient Instructions Indication:Former smoker Start:22-Mar-2022 Instruction Type:Provider Instructions for Treatment How to Access Health Informa tion Online using Patient Portal and [employer] Apps Indication:Former smoker Start:22-Mar-2022 Instruction Type:Patient Education Patient Instructions Indication:BMI 28.0-28.9,adult Start:25-Jan-2022 Instruction Type:Provider Instructions for Treatment How to Access Health Informa tion Online using Patient Portal and [employer] Apps Indication:BMI 28.0-28.9,adult Start:25-Jan-2022 Instruction Type:Patient Education Patient Instructions Indication:MIKY (obstructive sleep apnea) Start:14-Dec-2021 Instruction Type:Provider Instructions for Treatment How to Access Health Informa tion Online using Patient Portal and [employer] Apps Indication:MIKY (obstructive sleep apnea) Start:14-Dec-2021 Instruction Type:Patient Education Patient Instructions Indication:Low back pain with left-sided sciatica Start:13-Oct-2021 Instruction Type:Provider Instructions for Treatment How to Access Health Informa tion Online using Patient Portal and [employer] Apps Indication:Low back pain with left-sided sciatica Start:13-Oct-2021 Instruction Type:Patient Education Patient Instructions Indication:Annual Medicare Physical WITH abnormal findings (Renamed from Encounter for general adult medical examination with abnormal findings) Start:30-Aug-2021 Instruction Type:Provider Instructions for Treatment How to Access Health Informa tion Online using Patient Portal and [employer] Apps Indication:Annual Medicare Physical WITH abnormal findings (Renamed from Encounter for general adult medical examination with abnormal findings) Start:30-Aug-2021 Instruction Type:Patient Education Patient Instructions Indication:Abdominal pain, acute, right upper quadrant Start:26-Jul-2013 Instruction Type:Provider Instructions for Treatment Patient Instructions Indication:Abdominal pain, acute, right lower quadrant Start:04-Jun-2013 Instruction Type:Provider Instructions for Treatment Patient Instructions Indication:Abdominal pain, acute, right upper quadrant Start:27-May-2013 Instruction Type:Provider Instructions for Treatment [facility]; [facility] Work Phone: Instructions* Name Dates Details Patient Instructions Indication:BMI 25.0-25.9,adult Start:03-Oct-2022 Instruction Type:Provider Instructions for Treatment How to Access Health Informa tion Online using Patient Portal and [employer] Apps Indication:BMI 25.0-25.9,adult Start:03-Oct-2022 Instruction Type:Patient Education Patient Instructions Indication:Former smoker Start:23-Jun-2022 Instruction Type:Provider Instructions for Treatment How to Access Health Informa tion Online using Patient Portal and [employer] Apps Indication:Former smoker Start:23-Jun-2022 Instruction Type:Patient Education Patient Instructions Indication:Former smoker Start:02-Jun-2022 Instruction Type:Provider Instructions for Treatment How to Access Health Informa tion Online using Patient Portal and [employer] Apps Indication:Former smoker Start:02-Jun-2022 Instruction Type:Patient Education Patient Instructions Indication:Umbilical hernia Start:26-May-2022 Instruction Type:Provider Instructions for Treatment How to Access Health Informa tion Online using Patient Portal and [employer] Apps Indication:Umbilical hernia Start:26-May-2022 Instruction Type:Patient Education Patient Instructions Indication:BMI 25.0-25.9,adult Start:25-Apr-2022 Instruction Type:Provider Instructions for Treatment How to Access Health Informa tion Online using Patient Portal and [employer] Apps Indication:BMI 25.0-25.9,adult Start:25-Apr-2022 Instruction Type:Patient Education Patient Instructions Indication:Orthostatic hypotension Start:22-Apr-2022 Instruction Type:Provider Instructions for Treatment How to Access Health Informa tion Online using Patient Portal and [employer] Apps Indication:Orthostatic hypotension Start:22-Apr-2022 Instruction Type:Patient Education Patient Instructions Indication:Former smoker Start:22-Mar-2022 Instruction Type:Provider Instructions for Treatment How to Access Health Informa tion Online using Patient Portal and [employer] Apps Indication:Former smoker Start:22-Mar-2022 Instruction Type:Patient Education Patient Instructions Indication:BMI 28.0-28.9,adult Start:25-Jan-2022 Instruction Type:Provider Instructions for Treatment How to Access Health Informa tion Online using Patient Portal and [employer] Apps Indication:BMI 28.0-28.9,adult Start:25-Jan-2022 Instruction Type:Patient Education Patient Instructions Indication:MIKY (obstructive sleep apnea) Start:14-Dec-2021 Instruction Type:Provider Instructions for Treatment How to Access Health Informa tion Online using Patient Portal and [employer] Apps Indication:MIKY (obstructive sleep apnea) Start:14-Dec-2021 Instruction Type:Patient Education Patient Instructions Indication:Low back pain with left-sided sciatica Start:13-Oct-2021 Instruction Type:Provider Instructions for Treatment How to Access Health Informa tion Online using Patient Portal and [employer] Apps Indication:Low back pain with left-sided sciatica Start:13-Oct-2021 Instruction Type:Patient Education Patient Instructions Indication:Annual Medicare Physical WITH abnormal findings (Renamed from Encounter for general adult medical examination with abnormal findings) Start:30-Aug-2021 Instruction Type:Provider Instructions for Treatment How to Access Health Informa tion Online using Patient Portal and [employer] Apps Indication:Annual Medicare Physical WITH abnormal findings (Renamed from Encounter for general adult medical examination with abnormal findings) Start:30-Aug-2021 Instruction Type:Patient Education Patient Instructions Indication:Abdominal pain, acute, right upper quadrant Start:26-Jul-2013 Instruction Type:Provider Instructions for Treatment Patient Instructions Indication:Abdominal pain, acute, right lower quadrant Start:04-Jun-2013 Instruction Type:Provider Instructions for Treatment Patient Instructions Indication:Abdominal pain, acute, right upper quadrant Start:27-May-2013 Instruction Type:Provider Instructions for Treatment [facility]; [facility] Work Phone: Instructions* Name Dates Details Patient Instructions Indication:BMI 25.0-25.9,adult Start:03-Oct-2022 Instruction Type:Provider Instructions for Treatment How to Access Health Informa tion Online using Patient Portal and [employer] Apps Indication:BMI 25.0-25.9,adult Start:03-Oct-2022 Instruction Type:Patient Education Patient Instructions Indication:Former smoker Start:23-Jun-2022 Instruction Type:Provider Instructions for Treatment How to Access Health Informa tion Online using Patient Portal and [employer] Apps Indication:Former smoker Start:23-Jun-2022 Instruction Type:Patient Education Patient Instructions Indication:Former smoker Start:02-Jun-2022 Instruction Type:Provider Instructions for Treatment How to Access Health Informa tion Online using Patient Portal and [employer] Apps Indication:Former smoker Start:02-Jun-2022 Instruction Type:Patient Education Patient Instructions Indication:Umbilical hernia Start:26-May-2022 Instruction Type:Provider Instructions for Treatment How to Access Health Informa tion Online using Patient Portal and [employer] Apps Indication:Umbilical hernia Start:26-May-2022 Instruction Type:Patient Education Patient Instructions Indication:BMI 25.0-25.9,adult Start:25-Apr-2022 Instruction Type:Provider Instructions for Treatment How to Access Health Informa tion Online using Patient Portal and [employer] Apps Indication:BMI 25.0-25.9,adult Start:25-Apr-2022 Instruction Type:Patient Education Patient Instructions Indication:Orthostatic hypotension Start:22-Apr-2022 Instruction Type:Provider Instructions for Treatment How to Access Health Informa tion Online using Patient Portal and [employer] Apps Indication:Orthostatic hypotension Start:22-Apr-2022 Instruction Type:Patient Education Patient Instructions Indication:Former smoker Start:22-Mar-2022 Instruction Type:Provider Instructions for Treatment How to Access Health Informa tion Online using Patient Portal and [employer] Apps Indication:Former smoker Start:22-Mar-2022 Instruction Type:Patient Education Patient Instructions Indication:BMI 28.0-28.9,adult Start:25-Jan-2022 Instruction Type:Provider Instructions for Treatment How to Access Health Informa tion Online using Patient Portal and [employer] Apps Indication:BMI 28.0-28.9,adult Start:25-Jan-2022 Instruction Type:Patient Education Patient Instructions Indication:MIKY (obstructive sleep apnea) Start:14-Dec-2021 Instruction Type:Provider Instructions for Treatment How to Access Health Informa tion Online using Patient Portal and [employer] Apps Indication:MIKY (obstructive sleep apnea) Start:14-Dec-2021 Instruction Type:Patient Education Patient Instructions Indication:Low back pain with left-sided sciatica Start:13-Oct-2021 Instruction Type:Provider Instructions for Treatment How to Access Health Informa tion Online using Patient Portal and [employer] Apps Indication:Low back pain with left-sided sciatica Start:13-Oct-2021 Instruction Type:Patient Education Patient Instructions Indication:Annual Medicare Physical WITH abnormal findings (Renamed from Encounter for general adult medical examination with abnormal findings) Start:30-Aug-2021 Instruction Type:Provider Instructions for Treatment How to Access Health Informa tion Online using Patient Portal and [employer] Apps Indication:Annual Medicare Physical WITH abnormal findings (Renamed from Encounter for general adult medical examination with abnormal findings) Start:30-Aug-2021 Instruction Type:Patient Education Patient Instructions Indication:Abdominal pain, acute, right upper quadrant Start:26-Jul-2013 Instruction Type:Provider Instructions for Treatment Patient Instructions Indication:Abdominal pain, acute, right lower quadrant Start:04-Jun-2013 Instruction Type:Provider Instructions for Treatment Patient Instructions Indication:Abdominal pain, acute, right upper quadrant Start:27-May-2013 Instruction Type:Provider Instructions for Treatment [facility]; [facility] Work Phone: Instructions* Name Dates Details Patient Instructions Indication:BMI 25.0-25.9,adult Start:03-Oct-2022 Instruction Type:Provider Instructions for Treatment How to Access Health Informa tion Online using Patient Portal and [employer] Apps Indication:BMI 25.0-25.9,adult Start:03-Oct-2022 Instruction Type:Patient Education Patient Instructions Indication:Former smoker Start:23-Jun-2022 Instruction Type:Provider Instructions for Treatment How to Access Health Informa tion Online using Patient Portal and [employer] Apps Indication:Former smoker Start:23-Jun-2022 Instruction Type:Patient Education Patient Instructions Indication:Former smoker Start:02-Jun-2022 Instruction Type:Provider Instructions for Treatment How to Access Health Informa tion Online using Patient Portal and [employer] Apps Indication:Former smoker Start:02-Jun-2022 Instruction Type:Patient Education Patient Instructions Indication:Umbilical hernia Start:26-May-2022 Instruction Type:Provider Instructions for Treatment How to Access Health Informa tion Online using Patient Portal and [employer] Apps Indication:Umbilical hernia Start:26-May-2022 Instruction Type:Patient Education Patient Instructions Indication:BMI 25.0-25.9,adult Start:25-Apr-2022 Instruction Type:Provider Instructions for Treatment How to Access Health Informa tion Online using Patient Portal and [employer] Apps Indication:BMI 25.0-25.9,adult Start:25-Apr-2022 Instruction Type:Patient Education Patient Instructions Indication:Orthostatic hypotension Start:22-Apr-2022 Instruction Type:Provider Instructions for Treatment How to Access Health Informa tion Online using Patient Portal and [employer] Apps Indication:Orthostatic hypotension Start:22-Apr-2022 Instruction Type:Patient Education Patient Instructions Indication:Former smoker Start:22-Mar-2022 Instruction Type:Provider Instructions for Treatment How to Access Health Informa tion Online using Patient Portal and [employer] Apps Indication:Former smoker Start:22-Mar-2022 Instruction Type:Patient Education Patient Instructions Indication:BMI 28.0-28.9,adult Start:25-Jan-2022 Instruction Type:Provider Instructions for Treatment How to Access Health Informa tion Online using Patient Portal and [employer] Apps Indication:BMI 28.0-28.9,adult Start:25-Jan-2022 Instruction Type:Patient Education Patient Instructions Indication:MIKY (obstructive sleep apnea) Start:14-Dec-2021 Instruction Type:Provider Instructions for Treatment How to Access Health Informa tion Online using Patient Portal and [employer] Apps Indication:MIKY (obstructive sleep apnea) Start:14-Dec-2021 Instruction Type:Patient Education Patient Instructions Indication:Low back pain with left-sided sciatica Start:13-Oct-2021 Instruction Type:Provider Instructions for Treatment How to Access Health Informa tion Online using Patient Portal and [employer] Apps Indication:Low back pain with left-sided sciatica Start:13-Oct-2021 Instruction Type:Patient Education Patient Instructions Indication:Annual Medicare Physical WITH abnormal findings (Renamed from Encounter for general adult medical examination with abnormal findings) Start:30-Aug-2021 Instruction Type:Provider Instructions for Treatment How to Access Health Informa tion Online using Patient Portal and [employer] Apps Indication:Annual Medicare Physical WITH abnormal findings (Renamed from Encounter for general adult medical examination with abnormal findings) Start:30-Aug-2021 Instruction Type:Patient Education Patient Instructions Indication:Abdominal pain, acute, right upper quadrant Start:26-Jul-2013 Instruction Type:Provider Instructions for Treatment Patient Instructions Indication:Abdominal pain, acute, right lower quadrant Start:04-Jun-2013 Instruction Type:Provider Instructions for Treatment Patient Instructions Indication:Abdominal pain, acute, right upper quadrant Start:27-May-2013 Instruction Type:Provider Instructions for Treatment [facility]; [facility] Work Phone: Instructions* Name Dates Details Patient Instructions Indication:Former smoker Start:02-Jan-2023 Instruction Type:Provider Instructions for Treatment How to Access Health Informa tion Online using Patient Portal and [employer] Apps Indication:Former smoker Start:02-Jan-2023 Instruction Type:Patient Education Patient Instructions Indication:BMI 25.0-25.9,adult Start:03-Oct-2022 Instruction Type:Provider Instructions for Treatment How to Access Health Informa tion Online using Patient Portal and [employer] Indication:BMI 25.0-25.9,adult Start:03-Oct-2022 Instruction Type:Patient Education Patient Instructions Indication:Former smoker Start:23-Jun-2022 Instruction Type:Provider Instructions for Treatment How to Access Health Informa tion Online using Patient Portal and [employer] Indication:Former smoker Start:23-Jun-2022 Instruction Type:Patient Education Patient Instructions Indication:Former smoker Start:02-Jun-2022 Instruction Type:Provider Instructions for Treatment How to Access Health Informa tion Online using Patient Portal and [employer] Indication:Former smoker Start:02-Jun-2022 Instruction Type:Patient Education Patient Instructions Indication:Umbilical hernia Start:26-May-2022 Instruction Type:Provider Instructions for Treatment How to Access Health Informa tion Online using Patient Portal and [employer] Indication:Umbilical hernia Start:26-May-2022 Instruction Type:Patient Education Patient Instructions Indication:BMI 25.0-25.9,adult Start:25-Apr-2022 Instruction Type:Provider Instructions for Treatment How to Access Health Informa tion Online using Patient Portal and [employer] Indication:BMI 25.0-25.9,adult Start:25-Apr-2022 Instruction Type:Patient Education Patient Instructions Indication:Orthostatic hypotension Start:22-Apr-2022 Instruction Type:Provider Instructions for Treatment How to Access Health Informa tion Online using Patient Portal and [employer] Indication:Orthostatic hypotension Start:22-Apr-2022 Instruction Type:Patient Education Patient Instructions Indication:Former smoker Start:22-Mar-2022 Instruction Type:Provider Instructions for Treatment How to Access Health Informa tion Online using Patient Portal and [employer] Indication:Former smoker Start:22-Mar-2022 Instruction Type:Patient Education Patient Instructions Indication:BMI 28.0-28.9,adult Start:25-Jan-2022 Instruction Type:Provider Instructions for Treatment How to Access Health Informa tion Online using Patient Portal and [employer] Indication:BMI 28.0-28.9,adult Start:25-Jan-2022 Instruction Type:Patient Education Patient Instructions Indication:MIKY (obstructive sleep apnea) Start:14-Dec-2021 Instruction Type:Provider Instructions for Treatment How to Access Health Informa tion Online using Patient Portal and [employer] Indication:MIKY (obstructive sleep apnea) Start:14-Dec-2021 Instruction Type:Patient Education Patient Instructions Indication:Low back pain with left-sided sciatica Start:13-Oct-2021 Instruction Type:Provider Instructions for Treatment How to Access Health Informa tion Online using Patient Portal and [employer] Indication:Low back pain with left-sided sciatica Start:13-Oct-2021 Instruction Type:Patient Education Patient Instructions Indication:Annual Medicare Physical WITH abnormal findings (Renamed from Encounter for general adult medical examination with abnormal findings) Start:30-Aug-2021 Instruction Type:Provider Instructions for Treatment How to Access Health Informa tion Online using Patient Portal and [employer] Apps Indication:Annual Medicare Physical WITH abnormal findings (Renamed from Encounter for general adult medical examination with abnormal findings) Start:30-Aug-2021 Instruction Type:Patient Education Patient Instructions Indication:Abdominal pain, acute, right upper quadrant Start:26-Jul-2013 Instruction Type:Provider Instructions for Treatment Patient Instructions Indication:Abdominal pain, acute, right lower quadrant Start:04-Jun-2013 Instruction Type:Provider Instructions for Treatment Patient Instructions Indication:Abdominal pain, acute, right upper quadrant Start:27-May-2013 Instruction Type:Provider Instructions for Treatment [facility]; [facility] Work Phone: Instructions* Name Dates Details Patient Instructions Indication:Former smoker Start:02-Jan-2023 Instruction Type:Provider Instructions for Treatment How to Access Health Informa tion Online using Patient Portal and [employer] Indication:Former smoker Start:02-Jan-2023 Instruction Type:Patient Education Patient Instructions Indication:BMI 25.0-25.9,adult Start:03-Oct-2022 Instruction Type:Provider Instructions for Treatment How to Access Health Informa tion Online using Patient Portal and [employer] Apps Indication:BMI 25.0-25.9,adult Start:03-Oct-2022 Instruction Type:Patient Education Patient Instructions Indication:Former smoker Start:23-Jun-2022 Instruction Type:Provider Instructions for Treatment How to Access Health Informa tion Online using Patient Portal and [employer] Apps Indication:Former smoker Start:23-Jun-2022 Instruction Type:Patient Education Patient Instructions Indication:Former smoker Start:02-Jun-2022 Instruction Type:Provider Instructions for Treatment How to Access Health Informa tion Online using Patient Portal and [employer] Apps Indication:Former smoker Start:02-Jun-2022 Instruction Type:Patient Education Patient Instructions Indication:Umbilical hernia Start:26-May-2022 Instruction Type:Provider Instructions for Treatment How to Access Health Informa tion Online using Patient Portal and [employer] Apps Indication:Umbilical hernia Start:26-May-2022 Instruction Type:Patient Education Patient Instructions Indication:BMI 25.0-25.9,adult Start:25-Apr-2022 Instruction Type:Provider Instructions for Treatment How to Access Health Informa tion Online using Patient Portal and [employer] Apps Indication:BMI 25.0-25.9,adult Start:25-Apr-2022 Instruction Type:Patient Education Patient Instructions Indication:Orthostatic hypotension Start:22-Apr-2022 Instruction Type:Provider Instructions for Treatment How to Access Health Informa tion Online using Patient Portal and [employer] Apps Indication:Orthostatic hypotension Start:22-Apr-2022 Instruction Type:Patient Education Patient Instructions Indication:Former smoker Start:22-Mar-2022 Instruction Type:Provider Instructions for Treatment How to Access Health Informa tion Online using Patient Portal and [employer] Apps Indication:Former smoker Start:22-Mar-2022 Instruction Type:Patient Education Patient Instructions Indication:BMI 28.0-28.9,adult Start:25-Jan-2022 Instruction Type:Provider Instructions for Treatment How to Access Health Informa tion Online using Patient Portal and [employer] Apps Indication:BMI 28.0-28.9,adult Start:25-Jan-2022 Instruction Type:Patient Education Patient Instructions Indication:MIKY (obstructive sleep apnea) Start:14-Dec-2021 Instruction Type:Provider Instructions for Treatment How to Access Health Informa tion Online using Patient Portal and [employer] Apps Indication:MIKY (obstructive sleep apnea) Start:14-Dec-2021 Instruction Type:Patient Education Patient Instructions Indication:Low back pain with left-sided sciatica Start:13-Oct-2021 Instruction Type:Provider Instructions for Treatment How to Access Health Informa tion Online using Patient Portal and [employer] Apps Indication:Low back pain with left-sided sciatica Start:13-Oct-2021 Instruction Type:Patient Education Patient Instructions Indication:Annual Medicare Physical WITH abnormal findings (Renamed from Encounter for general adult medical examination with abnormal findings) Start:30-Aug-2021 Instruction Type:Provider Instructions for Treatment How to Access Health Informa tion Online using Patient Portal and [employer] Apps Indication:Annual Medicare Physical WITH abnormal findings (Renamed from Encounter for general adult medical examination with abnormal findings) Start:30-Aug-2021 Instruction Type:Patient Education Patient Instructions Indication:Abdominal pain, acute, right upper quadrant Start:26-Jul-2013 Instruction Type:Provider Instructions for Treatment Patient Instructions Indication:Abdominal pain, acute, right lower quadrant Start:04-Jun-2013 Instruction Type:Provider Instructions for Treatment Patient Instructions Indication:Abdominal pain, acute, right upper quadrant Start:27-May-2013 Instruction Type:Provider Instructions for Treatment [facility]; [facility] Work Phone: Instructions* Name Dates Details Patient Instructions Indication:Former smoker Start:02-Jan-2023 Instruction Type:Provider Instructions for Treatment How to Access Health Informa tion Online using Patient Portal and [employer] Apps Indication:Former smoker Start:02-Jan-2023 Instruction Type:Patient Education Patient Instructions Indication:BMI 25.0-25.9,adult Start:03-Oct-2022 Instruction Type:Provider Instructions for Treatment How to Access Health Informa tion Online using Patient Portal and [employer] Apps Indication:BMI 25.0-25.9,adult Start:03-Oct-2022 Instruction Type:Patient Education Patient Instructions Indication:Former smoker Start:23-Jun-2022 Instruction Type:Provider Instructions for Treatment How to Access Health Informa tion Online using Patient Portal and [employer] Apps Indication:Former smoker Start:23-Jun-2022 Instruction Type:Patient Education Patient Instructions Indication:Former smoker Start:02-Jun-2022 Instruction Type:Provider Instructions for Treatment How to Access Health Informa tion Online using Patient Portal and [employer] Apps Indication:Former smoker Start:02-Jun-2022 Instruction Type:Patient Education Patient Instructions Indication:Umbilical hernia Start:26-May-2022 Instruction Type:Provider Instructions for Treatment How to Access Health Informa tion Online using Patient Portal and [employer] Apps Indication:Umbilical hernia Start:26-May-2022 Instruction Type:Patient Education Patient Instructions Indication:BMI 25.0-25.9,adult Start:25-Apr-2022 Instruction Type:Provider Instructions for Treatment How to Access Health Informa tion Online using Patient Portal and [employer] Apps Indication:BMI 25.0-25.9,adult Start:25-Apr-2022 Instruction Type:Patient Education Patient Instructions Indication:Orthostatic hypotension Start:22-Apr-2022 Instruction Type:Provider Instructions for Treatment How to Access Health Informa tion Online using Patient Portal and [employer]rd [employer] Apps Indication:Orthostatic hypotension Start:22-Apr-2022 Instruction Type:Patient Education Patient Instructions Indication:Former smoker Start:22-Mar-2022 Instruction Type:Provider Instructions for Treatment How to Access Health Informa tion Online using Patient Portal and [employer] Apps Indication:Former smoker Start:22-Mar-2022 Instruction Type:Patient Education Patient Instructions Indication:BMI 28.0-28.9,adult Start:25-Jan-2022 Instruction Type:Provider Instructions for Treatment How to Access Health Informa tion Online using Patient Portal and [employer]rd [employer] Apps Indication:BMI 28.0-28.9,adult Start:25-Jan-2022 Instruction Type:Patient Education Patient Instructions Indication:MIKY (obstructive sleep apnea) Start:14-Dec-2021 Instruction Type:Provider Instructions for Treatment How to Access Health Informa tion Online using Patient Portal and [employer]rd [employer] Apps Indication:MIKY (obstructive sleep apnea) Start:14-Dec-2021 Instruction Type:Patient Education Patient Instructions Indication:Low back pain with left-sided sciatica Start:13-Oct-2021 Instruction Type:Provider Instructions for Treatment How to Access Health Informa tion Online using Patient Portal and [employer] Apps Indication:Low back pain with left-sided sciatica Start:13-Oct-2021 Instruction Type:Patient Education Patient Instructions Indication:Annual Medicare Physical WITH abnormal findings (Renamed from Encounter for general adult medical examination with abnormal findings) Start:30-Aug-2021 Instruction Type:Provider Instructions for Treatment How to Access Health Informa tion Online using Patient Portal and [employer] Apps Indication:Annual Medicare Physical WITH abnormal findings (Renamed from Encounter for general adult medical examination with abnormal findings) Start:30-Aug-2021 Instruction Type:Patient Education Patient Instructions Indication:Abdominal pain, acute, right upper quadrant Start:26-Jul-2013 Instruction Type:Provider Instructions for Treatment Patient Instructions Indication:Abdominal pain, acute, right lower quadrant Start:04-Jun-2013 Instruction Type:Provider Instructions for Treatment Patient Instructions Indication:Abdominal pain, acute, right upper quadrant Start:27-May-2013 Instruction Type:Provider Instructions for Treatment [facility]; [facility] Work Phone: Instructions* Name Dates Details Patient Instructions Indication:BMI 25.0-25.9,adult Start:14-Mar-2023 Instruction Type:Provider Instructions for Treatment How to Access Health Informa tion Online using Patient Portal and [employer] Apps Indication:BMI 25.0-25.9,adult Start:14-Mar-2023 Instruction Type:Patient Education Patient Instructions Indication:Former smoker Start:02-Jan-2023 Instruction Type:Provider Instructions for Treatment How to Access Health Informa tion Online using Patient Portal and [employer] Apps Indication:Former smoker Start:02-Jan-2023 Instruction Type:Patient Education Patient Instructions Indication:BMI 25.0-25.9,adult Start:03-Oct-2022 Instruction Type:Provider Instructions for Treatment How to Access Health Informa tion Online using Patient Portal and [employer] Apps Indication:BMI 25.0-25.9,adult Start:03-Oct-2022 Instruction Type:Patient Education Patient Instructions Indication:Former smoker Start:23-Jun-2022 Instruction Type:Provider Instructions for Treatment How to Access Health Informa tion Online using Patient Portal and [employer] Apps Indication:Former smoker Start:23-Jun-2022 Instruction Type:Patient Education Patient Instructions Indication:Former smoker Start:02-Jun-2022 Instruction Type:Provider Instructions for Treatment How to Access Health Informa tion Online using Patient Portal and [employer] Apps Indication:Former smoker Start:02-Jun-2022 Instruction Type:Patient Education Patient Instructions Indication:Umbilical hernia Start:26-May-2022 Instruction Type:Provider Instructions for Treatment How to Access Health Informa tion Online using Patient Portal and [employer]rd [employer] Apps Indication:Umbilical hernia Start:26-May-2022 Instruction Type:Patient Education Patient Instructions Indication:BMI 25.0-25.9,adult Start:25-Apr-2022 Instruction Type:Provider Instructions for Treatment How to Access Health Informa tion Online using Patient Portal and [employer] Apps Indication:BMI 25.0-25.9,adult Start:25-Apr-2022 Instruction Type:Patient Education Patient Instructions Indication:Orthostatic hypotension Start:22-Apr-2022 Instruction Type:Provider Instructions for Treatment How to Access Health Informa tion Online using Patient Portal and [employer]rd [employer] Apps Indication:Orthostatic hypotension Start:22-Apr-2022 Instruction Type:Patient Education Patient Instructions Indication:Former smoker Start:22-Mar-2022 Instruction Type:Provider Instructions for Treatment How to Access Health Informa tion Online using Patient Portal and [employer] Apps Indication:Former smoker Start:22-Mar-2022 Instruction Type:Patient Education Patient Instructions Indication:BMI 28.0-28.9,adult Start:25-Jan-2022 Instruction Type:Provider Instructions for Treatment How to Access Health Informa tion Online using Patient Portal and [employer]rd [employer] Apps Indication:BMI 28.0-28.9,adult Start:25-Jan-2022 Instruction Type:Patient Education Patient Instructions Indication:MIKY (obstructive sleep apnea) Start:14-Dec-2021 Instruction Type:Provider Instructions for Treatment How to Access Health Informa tion Online using Patient Portal and [employer]rd [employer] Apps Indication:MIKY (obstructive sleep apnea) Start:14-Dec-2021 Instruction Type:Patient Education Patient Instructions Indication:Low back pain with left-sided sciatica Start:13-Oct-2021 Instruction Type:Provider Instructions for Treatment How to Access Health Informa tion Online using Patient Portal and [employer]rd [employer] Apps Indication:Low back pain with left-sided sciatica Start:13-Oct-2021 Instruction Type:Patient Education Patient Instructions Indication:Annual Medicare Physical WITH abnormal findings (Renamed from Encounter for general adult medical examination with abnormal findings) Start:30-Aug-2021 Instruction Type:Provider Instructions for Treatment How to Access Health Informa tion Online using Patient Portal and [employer]rd [employer] Apps Indication:Annual Medicare Physical WITH abnormal findings (Renamed from Encounter for general adult medical examination with abnormal findings) Start:30-Aug-2021 Instruction Type:Patient Education Patient Instructions Indication:Abdominal pain, acute, right upper quadrant Start:26-Jul-2013 Instruction Type:Provider Instructions for Treatment Patient Instructions Indication:Abdominal pain, acute, right lower quadrant Start:04-Jun-2013 Instruction Type:Provider Instructions for Treatment Patient Instructions Indication:Abdominal pain, acute, right upper quadrant Start:27-May-2013 Instruction Type:Provider Instructions for Treatment [facility]; [facility] Work Phone: Instructions* Name Dates Details Patient Instructions Indication:BMI 25.0-25.9,adult Start:14-Mar-2023 Instruction Type:Provider Instructions for Treatment How to Access Health Informa tion Online using Patient Portal and [employer] Apps Indication:BMI 25.0-25.9,adult Start:14-Mar-2023 Instruction Type:Patient Education Patient Instructions Indication:Former smoker Start:02-Jan-2023 Instruction Type:Provider Instructions for Treatment How to Access Health Informa tion Online using Patient Portal and [employer] Apps Indication:Former smoker Start:02-Jan-2023 Instruction Type:Patient Education Patient Instructions Indication:BMI 25.0-25.9,adult Start:03-Oct-2022 Instruction Type:Provider Instructions for Treatment How to Access Health Informa tion Online using Patient Portal and [employer] Apps Indication:BMI 25.0-25.9,adult Start:03-Oct-2022 Instruction Type:Patient Education Patient Instructions Indication:Former smoker Start:23-Jun-2022 Instruction Type:Provider Instructions for Treatment How to Access Health Informa tion Online using Patient Portal and [employer] Apps Indication:Former smoker Start:23-Jun-2022 Instruction Type:Patient Education Patient Instructions Indication:Former smoker Start:02-Jun-2022 Instruction Type:Provider Instructions for Treatment How to Access Health Informa tion Online using Patient Portal and [employer] Apps Indication:Former smoker Start:02-Jun-2022 Instruction Type:Patient Education Patient Instructions Indication:Umbilical hernia Start:26-May-2022 Instruction Type:Provider Instructions for Treatment How to Access Health Informa tion Online using Patient Portal and [employer] Apps Indication:Umbilical hernia Start:26-May-2022 Instruction Type:Patient Education Patient Instructions Indication:BMI 25.0-25.9,adult Start:25-Apr-2022 Instruction Type:Provider Instructions for Treatment How to Access Health Informa tion Online using Patient Portal and [employer]rd [employer] Apps Indication:BMI 25.0-25.9,adult Start:25-Apr-2022 Instruction Type:Patient Education Patient Instructions Indication:Orthostatic hypotension Start:22-Apr-2022 Instruction Type:Provider Instructions for Treatment How to Access Health Informa tion Online using Patient Portal and [employer] Apps Indication:Orthostatic hypotension Start:22-Apr-2022 Instruction Type:Patient Education Patient Instructions Indication:Former smoker Start:22-Mar-2022 Instruction Type:Provider Instructions for Treatment How to Access Health Informa tion Online using Patient Portal and [employer] Apps Indication:Former smoker Start:22-Mar-2022 Instruction Type:Patient Education Patient Instructions Indication:BMI 28.0-28.9,adult Start:25-Jan-2022 Instruction Type:Provider Instructions for Treatment How to Access Health Informa tion Online using Patient Portal and [employer] Apps Indication:BMI 28.0-28.9,adult Start:25-Jan-2022 Instruction Type:Patient Education Patient Instructions Indication:MIKY (obstructive sleep apnea) Start:14-Dec-2021 Instruction Type:Provider Instructions for Treatment How to Access Health Informa tion Online using Patient Portal and [employer]rd [employer] Apps Indication:MIKY (obstructive sleep apnea) Start:14-Dec-2021 Instruction Type:Patient Education Patient Instructions Indication:Low back pain with left-sided sciatica Start:13-Oct-2021 Instruction Type:Provider Instructions for Treatment How to Access Health Informa tion Online using Patient Portal and [employer]rd [employer] Apps Indication:Low back pain with left-sided sciatica Start:13-Oct-2021 Instruction Type:Patient Education Patient Instructions Indication:Annual Medicare Physical WITH abnormal findings (Renamed from Encounter for general adult medical examination with abnormal findings) Start:30-Aug-2021 Instruction Type:Provider Instructions for Treatment How to Access Health Informa tion Online using Patient Portal and [employer] Apps Indication:Annual Medicare Physical WITH abnormal findings (Renamed from Encounter for general adult medical examination with abnormal findings) Start:30-Aug-2021 Instruction Type:Patient Education Patient Instructions Indication:Abdominal pain, acute, right upper quadrant Start:26-Jul-2013 Instruction Type:Provider Instructions for Treatment Patient Instructions Indication:Abdominal pain, acute, right lower quadrant Start:04-Jun-2013 Instruction Type:Provider Instructions for Treatment Patient Instructions Indication:Abdominal pain, acute, right upper quadrant Start:27-May-2013 Instruction Type:Provider Instructions for Treatment [facility]; [facility] Work Phone: Instructions* Name Dates Details Patient Instructions Indication:BMI 25.0-25.9,adult Start:14-Mar-2023 Instruction Type:Provider Instructions for Treatment How to Access Health Informa tion Online using Patient Portal and [employer] Apps Indication:BMI 25.0-25.9,adult Start:14-Mar-2023 Instruction Type:Patient Education Patient Instructions Indication:Former smoker Start:02-Jan-2023 Instruction Type:Provider Instructions for Treatment How to Access Health Informa tion Online using Patient Portal and [employer] Apps Indication:Former smoker Start:02-Jan-2023 Instruction Type:Patient Education Patient Instructions Indication:BMI 25.0-25.9,adult Start:03-Oct-2022 Instruction Type:Provider Instructions for Treatment How to Access Health Informa tion Online using Patient Portal and [employer] Apps Indication:BMI 25.0-25.9,adult Start:03-Oct-2022 Instruction Type:Patient Education Patient Instructions Indication:Former smoker Start:23-Jun-2022 Instruction Type:Provider Instructions for Treatment How to Access Health Informa tion Online using Patient Portal and [employer] Apps Indication:Former smoker Start:23-Jun-2022 Instruction Type:Patient Education Patient Instructions Indication:Former smoker Start:02-Jun-2022 Instruction Type:Provider Instructions for Treatment How to Access Health Informa tion Online using Patient Portal and [employer] Apps Indication:Former smoker Start:02-Jun-2022 Instruction Type:Patient Education Patient Instructions Indication:Umbilical hernia Start:26-May-2022 Instruction Type:Provider Instructions for Treatment How to Access Health Informa tion Online using Patient Portal and [employer] Apps Indication:Umbilical hernia Start:26-May-2022 Instruction Type:Patient Education Patient Instructions Indication:BMI 25.0-25.9,adult Start:25-Apr-2022 Instruction Type:Provider Instructions for Treatment How to Access Health Informa tion Online using Patient Portal and [employer] Apps Indication:BMI 25.0-25.9,adult Start:25-Apr-2022 Instruction Type:Patient Education Patient Instructions Indication:Orthostatic hypotension Start:22-Apr-2022 Instruction Type:Provider Instructions for Treatment How to Access Health Informa tion Online using Patient Portal and [employer] Apps Indication:Orthostatic hypotension Start:22-Apr-2022 Instruction Type:Patient Education Patient Instructions Indication:Former smoker Start:22-Mar-2022 Instruction Type:Provider Instructions for Treatment How to Access Health Informa tion Online using Patient Portal and [employer] Apps Indication:Former smoker Start:22-Mar-2022 Instruction Type:Patient Education Patient Instructions Indication:BMI 28.0-28.9,adult Start:25-Jan-2022 Instruction Type:Provider Instructions for Treatment How to Access Health Informa tion Online using Patient Portal and [employer] Apps Indication:BMI 28.0-28.9,adult Start:25-Jan-2022 Instruction Type:Patient Education Patient Instructions Indication:MIKY (obstructive sleep apnea) Start:14-Dec-2021 Instruction Type:Provider Instructions for Treatment How to Access Health Informa tion Online using Patient Portal and [employer] Apps Indication:MIKY (obstructive sleep apnea) Start:14-Dec-2021 Instruction Type:Patient Education Patient Instructions Indication:Low back pain with left-sided sciatica Start:13-Oct-2021 Instruction Type:Provider Instructions for Treatment How to Access Health Informa tion Online using Patient Portal and [employer] Apps Indication:Low back pain with left-sided sciatica Start:13-Oct-2021 Instruction Type:Patient Education Patient Instructions Indication:Annual Medicare Physical WITH abnormal findings (Renamed from Encounter for general adult medical examination with abnormal findings) Start:30-Aug-2021 Instruction Type:Provider Instructions for Treatment How to Access Health Informa tion Online using Patient Portal and [employer] Apps Indication:Annual Medicare Physical WITH abnormal findings (Renamed from Encounter for general adult medical examination with abnormal findings) Start:30-Aug-2021 Instruction Type:Patient Education Patient Instructions Indication:Abdominal pain, acute, right upper quadrant Start:26-Jul-2013 Instruction Type:Provider Instructions for Treatment Patient Instructions Indication:Abdominal pain, acute, right lower quadrant Start:04-Jun-2013 Instruction Type:Provider Instructions for Treatment Patient Instructions Indication:Abdominal pain, acute, right upper quadrant Start:27-May-2013 Instruction Type:Provider Instructions for Treatment [facility]; [facility] Work Phone: Instructions* Name Dates Details Patient Instructions Indication:Former smoker Start:02-May-2023 Instruction Type:Provider Instructions for Treatment How to Access Health Informa tion Online using Patient Portal and [employer] Apps Indication:Former smoker Start:02-May-2023 Instruction Type:Patient Education Patient Instructions Indication:BMI 25.0-25.9,adult Start:14-Mar-2023 Instruction Type:Provider Instructions for Treatment How to Access Health Informa tion Online using Patient Portal and [employer] Apps Indication:BMI 25.0-25.9,adult Start:14-Mar-2023 Instruction Type:Patient Education Patient Instructions Indication:Former smoker Start:02-Jan-2023 Instruction Type:Provider Instructions for Treatment How to Access Health Informa tion Online using Patient Portal and [employer] Apps Indication:Former smoker Start:02-Jan-2023 Instruction Type:Patient Education Patient Instructions Indication:BMI 25.0-25.9,adult Start:03-Oct-2022 Instruction Type:Provider Instructions for Treatment How to Access Health Informa tion Online using Patient Portal and [employer] Apps Indication:BMI 25.0-25.9,adult Start:03-Oct-2022 Instruction Type:Patient Education Patient Instructions Indication:Former smoker Start:23-Jun-2022 Instruction Type:Provider Instructions for Treatment How to Access Health Informa tion Online using Patient Portal and [employer] Apps Indication:Former smoker Start:23-Jun-2022 Instruction Type:Patient Education Patient Instructions Indication:Former smoker Start:02-Jun-2022 Instruction Type:Provider Instructions for Treatment How to Access Health Informa tion Online using Patient Portal and [employer] Apps Indication:Former smoker Start:02-Jun-2022 Instruction Type:Patient Education Patient Instructions Indication:Umbilical hernia Start:26-May-2022 Instruction Type:Provider Instructions for Treatment How to Access Health Informa tion Online using Patient Portal and [employer] Apps Indication:Umbilical hernia Start:26-May-2022 Instruction Type:Patient Education Patient Instructions Indication:BMI 25.0-25.9,adult Start:25-Apr-2022 Instruction Type:Provider Instructions for Treatment How to Access Health Informa tion Online using Patient Portal and [employer] Apps Indication:BMI 25.0-25.9,adult Start:25-Apr-2022 Instruction Type:Patient Education Patient Instructions Indication:Orthostatic hypotension Start:22-Apr-2022 Instruction Type:Provider Instructions for Treatment How to Access Health Informa tion Online using Patient Portal and [employer] Apps Indication:Orthostatic hypotension Start:22-Apr-2022 Instruction Type:Patient Education Patient Instructions Indication:Former smoker Start:22-Mar-2022 Instruction Type:Provider Instructions for Treatment How to Access Health Informa tion Online using Patient Portal and [employer] Apps Indication:Former smoker Start:22-Mar-2022 Instruction Type:Patient Education Patient Instructions Indication:BMI 28.0-28.9,adult Start:25-Jan-2022 Instruction Type:Provider Instructions for Treatment How to Access Health Informa tion Online using Patient Portal and [employer] Apps Indication:BMI 28.0-28.9,adult Start:25-Jan-2022 Instruction Type:Patient Education Patient Instructions Indication:MIKY (obstructive sleep apnea) Start:14-Dec-2021 Instruction Type:Provider Instructions for Treatment How to Access Health Informa tion Online using Patient Portal and [employer] Apps Indication:MIKY (obstructive sleep apnea) Start:14-Dec-2021 Instruction Type:Patient Education Patient Instructions Indication:Low back pain with left-sided sciatica Start:13-Oct-2021 Instruction Type:Provider Instructions for Treatment How to Access Health Informa tion Online using Patient Portal and [employer] Apps Indication:Low back pain with left-sided sciatica Start:13-Oct-2021 Instruction Type:Patient Education Patient Instructions Indication:Annual Medicare Physical WITH abnormal findings (Renamed from Encounter for general adult medical examination with abnormal findings) Start:30-Aug-2021 Instruction Type:Provider Instructions for Treatment How to Access Health Informa tion Online using Patient Portal and [employer] Apps Indication:Annual Medicare Physical WITH abnormal findings (Renamed from Encounter for general adult medical examination with abnormal findings) Start:30-Aug-2021 Instruction Type:Patient Education Patient Instructions Indication:Abdominal pain, acute, right upper quadrant Start:26-Jul-2013 Instruction Type:Provider Instructions for Treatment Patient Instructions Indication:Abdominal pain, acute, right lower quadrant Start:04-Jun-2013 Instruction Type:Provider Instructions for Treatment Patient Instructions Indication:Abdominal pain, acute, right upper quadrant Start:27-May-2013 Instruction Type:Provider Instructions for Treatment [facility]; [facility] Work Phone: Instructions* Name Dates Details Patient Instructions Indication:BMI 25.0-25.9,adult Start:08-Aug-2023 Instruction Type:Provider Instructions for Treatment How to Access Health Informa tion Online using Patient Portal and [employer] Apps Indication:BMI 25.0-25.9,adult Start:08-Aug-2023 Instruction Type:Patient Education Patient Instructions Indication:Former smoker Start:02-May-2023 Instruction Type:Provider Instructions for Treatment How to Access Health Informa tion Online using Patient Portal and [employer] Apps Indication:Former smoker Start:02-May-2023 Instruction Type:Patient Education Patient Instructions Indication:BMI 25.0-25.9,adult Start:14-Mar-2023 Instruction Type:Provider Instructions for Treatment How to Access Health Informa tion Online using Patient Portal and [employer] Apps Indication:BMI 25.0-25.9,adult Start:14-Mar-2023 Instruction Type:Patient Education Patient Instructions Indication:Former smoker Start:02-Jan-2023 Instruction Type:Provider Instructions for Treatment How to Access Health Informa tion Online using Patient Portal and [employer] Apps Indication:Former smoker Start:02-Jan-2023 Instruction Type:Patient Education Patient Instructions Indication:BMI 25.0-25.9,adult Start:03-Oct-2022 Instruction Type:Provider Instructions for Treatment How to Access Health Informa tion Online using Patient Portal and [employer] Apps Indication:BMI 25.0-25.9,adult Start:03-Oct-2022 Instruction Type:Patient Education Patient Instructions Indication:Former smoker Start:23-Jun-2022 Instruction Type:Provider Instructions for Treatment How to Access Health Informa tion Online using Patient Portal and [employer] Apps Indication:Former smoker Start:23-Jun-2022 Instruction Type:Patient Education Patient Instructions Indication:Former smoker Start:02-Jun-2022 Instruction Type:Provider Instructions for Treatment How to Access Health Informa tion Online using Patient Portal and [employer] Apps Indication:Former smoker Start:02-Jun-2022 Instruction Type:Patient Education Patient Instructions Indication:Umbilical hernia Start:26-May-2022 Instruction Type:Provider Instructions for Treatment How to Access Health Informa tion Online using Patient Portal and [employer] Apps Indication:Umbilical hernia Start:26-May-2022 Instruction Type:Patient Education Patient Instructions Indication:BMI 25.0-25.9,adult Start:25-Apr-2022 Instruction Type:Provider Instructions for Treatment How to Access Health Informa tion Online using Patient [employer] and [employer] Indication:BMI 25.0-25.9,adult Start:25-Apr-2022 Instruction Type:Patient Education Patient Instructions Indication:Orthostatic hypotension Start:22-Apr-2022 Instruction Type:Provider Instructions for Treatment How to Access Health Informa tion Online using Patient [employer] and [employer] Apps Indication:Orthostatic hypotension Start:22-Apr-2022 Instruction Type:Patient Education Patient Instructions Indication:Former smoker Start:22-Mar-2022 Instruction Type:Provider Instructions for Treatment How to Access Health Informa tion Online using Patient [employer] and [employer] Apps Indication:Former smoker Start:22-Mar-2022 Instruction Type:Patient Education Patient Instructions Indication:BMI 28.0-28.9,adult Start:25-Jan-2022 Instruction Type:Provider Instructions for Treatment How to Access Health Informa tion Online using Patient Portal and [employer] Apps Indication:BMI 28.0-28.9,adult Start:25-Jan-2022 Instruction Type:Patient Education Patient Instructions Indication:MIKY (obstructive sleep apnea) Start:14-Dec-2021 Instruction Type:Provider Instructions for Treatment How to Access Health Informa tion Online using Patient [employer] and [employer] Indication:MIKY (obstructive sleep apnea) Start:14-Dec-2021 Instruction Type:Patient Education Patient Instructions Indication:Low back pain with left-sided sciatica Start:13-Oct-2021 Instruction Type:Provider Instructions for Treatment How to Access Health Informa tion Online using Patient Portal and [employer] Apps Indication:Low back pain with left-sided sciatica Start:13-Oct-2021 Instruction Type:Patient Education Patient Instructions Indication:Annual Medicare Physical WITH abnormal findings (Renamed from Encounter for general adult medical examination with abnormal findings) Start:30-Aug-2021 Instruction Type:Provider Instructions for Treatment How to Access Health Informa tion Online using Patient Portal and [employer] Apps Indication:Annual Medicare Physical WITH abnormal findings (Renamed from Encounter for general adult medical examination with abnormal findings) Start:30-Aug-2021 Instruction Type:Patient Education Patient Instructions Indication:Abdominal pain, acute, right upper quadrant Start:26-Jul-2013 Instruction Type:Provider Instructions for Treatment Patient Instructions Indication:Abdominal pain, acute, right lower quadrant Start:04-Jun-2013 Instruction Type:Provider Instructions for Treatment Patient Instructions Indication:Abdominal pain, acute, right upper quadrant Start:27-May-2013 Instruction Type:Provider Instructions for Treatment [facility]; [facility] Work Phone: Instructions* Name Dates Details Patient Instructions Indication:BMI 25.0-25.9,adult Start:08-Aug-2023 Instruction Type:Provider Instructions for Treatment How to Access Health Informa tion Online using Patient Portal and [employer] Apps Indication:BMI 25.0-25.9,adult Start:08-Aug-2023 Instruction Type:Patient Education Patient Instructions Indication:Former smoker Start:02-May-2023 Instruction Type:Provider Instructions for Treatment How to Access Health Informa tion Online using Patient Portal and [employer] Apps Indication:Former smoker Start:02-May-2023 Instruction Type:Patient Education Patient Instructions Indication:BMI 25.0-25.9,adult Start:14-Mar-2023 Instruction Type:Provider Instructions for Treatment How to Access Health Informa tion Online using Patient Portal and [employer] Apps Indication:BMI 25.0-25.9,adult Start:14-Mar-2023 Instruction Type:Patient Education Patient Instructions Indication:Former smoker Start:02-Jan-2023 Instruction Type:Provider Instructions for Treatment How to Access Health Informa tion Online using Patient Portal and [employer] Apps Indication:Former smoker Start:02-Jan-2023 Instruction Type:Patient Education Patient Instructions Indication:BMI 25.0-25.9,adult Start:03-Oct-2022 Instruction Type:Provider Instructions for Treatment How to Access Health Informa tion Online using Patient Portal and [employer] Apps Indication:BMI 25.0-25.9,adult Start:03-Oct-2022 Instruction Type:Patient Education Patient Instructions Indication:Former smoker Start:23-Jun-2022 Instruction Type:Provider Instructions for Treatment How to Access Health Informa tion Online using Patient Portal and [employer] Apps Indication:Former smoker Start:23-Jun-2022 Instruction Type:Patient Education Patient Instructions Indication:Former smoker Start:02-Jun-2022 Instruction Type:Provider Instructions for Treatment How to Access Health Informa tion Online using Patient Portal and [employer] Apps Indication:Former smoker Start:02-Jun-2022 Instruction Type:Patient Education Patient Instructions Indication:Umbilical hernia Start:26-May-2022 Instruction Type:Provider Instructions for Treatment How to Access Health Informa tion Online using Patient Portal and [employer] Apps Indication:Umbilical hernia Start:26-May-2022 Instruction Type:Patient Education Patient Instructions Indication:BMI 25.0-25.9,adult Start:25-Apr-2022 Instruction Type:Provider Instructions for Treatment How to Access Health Informa tion Online using Patient Portal and [employer] Apps Indication:BMI 25.0-25.9,adult Start:25-Apr-2022 Instruction Type:Patient Education Patient Instructions Indication:Orthostatic hypotension Start:22-Apr-2022 Instruction Type:Provider Instructions for Treatment How to Access Health Informa tion Online using Patient Portal and [employer] Apps Indication:Orthostatic hypotension Start:22-Apr-2022 Instruction Type:Patient Education Patient Instructions Indication:Former smoker Start:22-Mar-2022 Instruction Type:Provider Instructions for Treatment How to Access Health Informa tion Online using Patient [employer] and [employer] Apps Indication:Former smoker Start:22-Mar-2022 Instruction Type:Patient Education Patient Instructions Indication:BMI 28.0-28.9,adult Start:25-Jan-2022 Instruction Type:Provider Instructions for Treatment How to Access Health Informa tion Online using Patient Portal and [employer] Apps Indication:BMI 28.0-28.9,adult Start:25-Jan-2022 Instruction Type:Patient Education Patient Instructions Indication:MIKY (obstructive sleep apnea) Start:14-Dec-2021 Instruction Type:Provider Instructions for Treatment How to Access Health Informa tion Online using Patient Portal and [employer] Apps Indication:MIKY (obstructive sleep apnea) Start:14-Dec-2021 Instruction Type:Patient Education Patient Instructions Indication:Low back pain with left-sided sciatica Start:13-Oct-2021 Instruction Type:Provider Instructions for Treatment How to Access Health Informa tion Online using Patient Portal and [employer] Apps Indication:Low back pain with left-sided sciatica Start:13-Oct-2021 Instruction Type:Patient Education Patient Instructions Indication:Annual Medicare Physical WITH abnormal findings (Renamed from Encounter for general adult medical examination with abnormal findings) Start:30-Aug-2021 Instruction Type:Provider Instructions for Treatment How to Access Health Informa tion Online using Patient Portal and [employer] Apps Indication:Annual Medicare Physical WITH abnormal findings (Renamed from Encounter for general adult medical examination with abnormal findings) Start:30-Aug-2021 Instruction Type:Patient Education Patient Instructions Indication:Abdominal pain, acute, right upper quadrant Start:26-Jul-2013 Instruction Type:Provider Instructions for Treatment Patient Instructions Indication:Abdominal pain, acute, right lower quadrant Start:04-Jun-2013 Instruction Type:Provider Instructions for Treatment Patient Instructions Indication:Abdominal pain, acute, right upper quadrant Start:27-May-2013 Instruction Type:Provider Instructions for Treatment [facility]; [facility] Work Phone: Instructions* Name Dates Details Patient Instructions Indication:Former smoker Start:15-Sep-2023 Instruction Type:Provider Instructions for Treatment How to Access Health Informa tion Online using Patient Portal and [employer] Indication:Former smoker Start:15-Sep-2023 Instruction Type:Patient Education Patient Instructions Indication:BMI 25.0-25.9,adult Start:08-Aug-2023 Instruction Type:Provider Instructions for Treatment How to Access Health Informa tion Online using Patient Portal and [employer] Apps Indication:BMI 25.0-25.9,adult Start:08-Aug-2023 Instruction Type:Patient Education Patient Instructions Indication:Former smoker Start:02-May-2023 Instruction Type:Provider Instructions for Treatment How to Access Health Informa tion Online using Patient Portal and [employer] Apps Indication:Former smoker Start:02-May-2023 Instruction Type:Patient Education Patient Instructions Indication:BMI 25.0-25.9,adult Start:14-Mar-2023 Instruction Type:Provider Instructions for Treatment How to Access Health Informa tion Online using Patient Portal and [employer] Apps Indication:BMI 25.0-25.9,adult Start:14-Mar-2023 Instruction Type:Patient Education Patient Instructions Indication:Former smoker Start:02-Jan-2023 Instruction Type:Provider Instructions for Treatment How to Access Health Informa tion Online using Patient Portal and [employer] Apps Indication:Former smoker Start:02-Jan-2023 Instruction Type:Patient Education Patient Instructions Indication:BMI 25.0-25.9,adult Start:03-Oct-2022 Instruction Type:Provider Instructions for Treatment How to Access Health Informa tion Online using Patient Portal and [employer] Apps Indication:BMI 25.0-25.9,adult Start:03-Oct-2022 Instruction Type:Patient Education Patient Instructions Indication:Former smoker Start:23-Jun-2022 Instruction Type:Provider Instructions for Treatment How to Access Health Informa tion Online using Patient Portal and [employer] Apps Indication:Former smoker Start:23-Jun-2022 Instruction Type:Patient Education Patient Instructions Indication:Former smoker Start:02-Jun-2022 Instruction Type:Provider Instructions for Treatment How to Access Health Informa tion Online using Patient Portal and [employer] Apps Indication:Former smoker Start:02-Jun-2022 Instruction Type:Patient Education Patient Instructions Indication:Umbilical hernia Start:26-May-2022 Instruction Type:Provider Instructions for Treatment How to Access Health Informa tion Online using Patient Portal and [employer] Apps Indication:Umbilical hernia Start:26-May-2022 Instruction Type:Patient Education Patient Instructions Indication:BMI 25.0-25.9,adult Start:25-Apr-2022 Instruction Type:Provider Instructions for Treatment How to Access Health Informa tion Online using Patient Portal and [employer] Apps Indication:BMI 25.0-25.9,adult Start:25-Apr-2022 Instruction Type:Patient Education Patient Instructions Indication:Orthostatic hypotension Start:22-Apr-2022 Instruction Type:Provider Instructions for Treatment How to Access Health Informa tion Online using Patient Portal and [employer] Apps Indication:Orthostatic hypotension Start:22-Apr-2022 Instruction Type:Patient Education Patient Instructions Indication:Former smoker Start:22-Mar-2022 Instruction Type:Provider Instructions for Treatment How to Access Health Informa tion Online using Patient Portal and [employer] Apps Indication:Former smoker Start:22-Mar-2022 Instruction Type:Patient Education Patient Instructions Indication:BMI 28.0-28.9,adult Start:25-Jan-2022 Instruction Type:Provider Instructions for Treatment How to Access Health Informa tion Online using Patient Portal and [employer] Apps Indication:BMI 28.0-28.9,adult Start:25-Jan-2022 Instruction Type:Patient Education Patient Instructions Indication:MIKY (obstructive sleep apnea) Start:14-Dec-2021 Instruction Type:Provider Instructions for Treatment How to Access Health Informa tion Online using Patient Portal and [employer] Apps Indication:MIKY (obstructive sleep apnea) Start:14-Dec-2021 Instruction Type:Patient Education Patient Instructions Indication:Low back pain with left-sided sciatica Start:13-Oct-2021 Instruction Type:Provider Instructions for Treatment How to Access Health Informa tion Online using Patient Portal and [employer] Apps Indication:Low back pain with left-sided sciatica Start:13-Oct-2021 Instruction Type:Patient Education Patient Instructions Indication:Annual Medicare Physical WITH abnormal findings (Renamed from Encounter for general adult medical examination with abnormal findings) Start:30-Aug-2021 Instruction Type:Provider Instructions for Treatment How to Access Health Informa tion Online using Patient Portal and [employer] Apps Indication:Annual Medicare Physical WITH abnormal findings (Renamed from Encounter for general adult medical examination with abnormal findings) Start:30-Aug-2021 Instruction Type:Patient Education Patient Instructions Indication:Abdominal pain, acute, right upper quadrant Start:26-Jul-2013 Instruction Type:Provider Instructions for Treatment Patient Instructions Indication:Abdominal pain, acute, right lower quadrant Start:04-Jun-2013 Instruction Type:Provider Instructions for Treatment Patient Instructions Indication:Abdominal pain, acute, right upper quadrant Start:27-May-2013 Instruction Type:Provider Instructions for Treatment [facility]; [facility] Work Phone: Instructions* Name Dates Details Patient Instructions Indication:Former smoker Start:15-Sep-2023 Instruction Type:Provider Instructions for Treatment How to Access Health Informa tion Online using Patient Portal and [employer] Apps Indication:Former smoker Start:15-Sep-2023 Instruction Type:Patient Education Patient Instructions Indication:BMI 25.0-25.9,adult Start:08-Aug-2023 Instruction Type:Provider Instructions for Treatment How to Access Health Informa tion Online using Patient Portal and [employer] Apps Indication:BMI 25.0-25.9,adult Start:08-Aug-2023 Instruction Type:Patient Education Patient Instructions Indication:Former smoker Start:02-May-2023 Instruction Type:Provider Instructions for Treatment How to Access Health Informa tion Online using Patient Portal and [employer] Apps Indication:Former smoker Start:02-May-2023 Instruction Type:Patient Education Patient Instructions Indication:BMI 25.0-25.9,adult Start:14-Mar-2023 Instruction Type:Provider Instructions for Treatment How to Access Health Informa tion Online using Patient Portal and [employer] Apps Indication:BMI 25.0-25.9,adult Start:14-Mar-2023 Instruction Type:Patient Education Patient Instructions Indication:Former smoker Start:02-Jan-2023 Instruction Type:Provider Instructions for Treatment How to Access Health Informa tion Online using Patient Portal and [employer] Apps Indication:Former smoker Start:02-Jan-2023 Instruction Type:Patient Education Patient Instructions Indication:BMI 25.0-25.9,adult Start:03-Oct-2022 Instruction Type:Provider Instructions for Treatment How to Access Health Informa tion Online using Patient Portal and [employer] Apps Indication:BMI 25.0-25.9,adult Start:03-Oct-2022 Instruction Type:Patient Education Patient Instructions Indication:Former smoker Start:23-Jun-2022 Instruction Type:Provider Instructions for Treatment How to Access Health Informa tion Online using Patient Portal and [employer] Apps Indication:Former smoker Start:23-Jun-2022 Instruction Type:Patient Education Patient Instructions Indication:Former smoker Start:02-Jun-2022 Instruction Type:Provider Instructions for Treatment How to Access Health Informa tion Online using Patient Portal and [employer] Apps Indication:Former smoker Start:02-Jun-2022 Instruction Type:Patient Education Patient Instructions Indication:Umbilical hernia Start:26-May-2022 Instruction Type:Provider Instructions for Treatment How to Access Health Informa tion Online using Patient Portal and [employer] Apps Indication:Umbilical hernia Start:26-May-2022 Instruction Type:Patient Education Patient Instructions Indication:BMI 25.0-25.9,adult Start:25-Apr-2022 Instruction Type:Provider Instructions for Treatment How to Access Health Informa tion Online using Patient Portal and [employer] Apps Indication:BMI 25.0-25.9,adult Start:25-Apr-2022 Instruction Type:Patient Education Patient Instructions Indication:Orthostatic hypotension Start:22-Apr-2022 Instruction Type:Provider Instructions for Treatment How to Access Health Informa tion Online using Patient Portal and [employer] Apps Indication:Orthostatic hypotension Start:22-Apr-2022 Instruction Type:Patient Education Patient Instructions Indication:Former smoker Start:22-Mar-2022 Instruction Type:Provider Instructions for Treatment How to Access Health Informa tion Online using Patient Portal and [employer] Apps Indication:Former smoker Start:22-Mar-2022 Instruction Type:Patient Education Patient Instructions Indication:BMI 28.0-28.9,adult Start:8-Mar-2022 Instruction Type:Provider Instructions for Treatment How to Access Health Informa tion Online using Patient Portal and [employer] Apps Indication:BMI 28.0-28.9,adult Start:25-Jan-2022 Instruction Type:Patient Education Patient Instructions Indication:MIKY (obstructive sleep apnea) Start:14-Dec-2021 Instruction Type:Provider Instructions for Treatment How to Access Health Informa tion Online using Patient Portal and [employer] Apps Indication:MIKY (obstructive sleep apnea) Start:14-Dec-2021 Instruction Type:Patient Education Patient Instructions Indication:Low back pain with left-sided sciatica Start:13-Oct-2021 Instruction Type:Provider Instructions for Treatment How to Access Health Informa tion Online using Patient Portal and [employer] Apps Indication:Low back pain with left-sided sciatica Start:13-Oct-2021 Instruction Type:Patient Education Patient Instructions Indication:Annual Medicare Physical WITH abnormal findings (Renamed from Encounter for general adult medical examination with abnormal findings) Start:30-Aug-2021 Instruction Type:Provider Instructions for Treatment How to Access Health Informa tion Online using Patient Portal and [employer] Apps Indication:Annual Medicare Physical WITH abnormal findings (Renamed from Encounter for general adult medical examination with abnormal findings) Start:30-Aug-2021 Instruction Type:Patient Education Patient Instructions Indication:Abdominal pain, acute, right upper quadrant Start:26-Jul-2013 Instruction Type:Provider Instructions for Treatment Patient Instructions Indication:Abdominal pain, acute, right lower quadrant Start:04-Jun-2013 Instruction Type:Provider Instructions for Treatment Patient Instructions Indication:Abdominal pain, acute, right upper quadrant Start:27-May-2013 Instruction Type:Provider Instructions for Treatment [facility]; [facility] Internal Medicine Work Phone: reason for referral (narrative)* Outpatient Procedure (Routine) - Authorized Specialty Diagnoses / Procedures Referred By Contac t Referred To Contact [facility] [place] Diagnoses Tachycardia Procedures ECG COMPLETE ECG ROUTINE ECG W/LEAST 12 LDS W/I&R Salomón Venegas MD [address] [place] [address] [facility] [address] [address] Referral ID Status Reason Start Date Expiration Date Visits Requested Visits Authorized [id number] Authorized Auto-Generat ed Referral 03/21/2023 03/20/2024 1 1 [facility] Family History Unknown Family Member Name Dates Details Father Comments: 88yo supranucl ear palsy. Status:Active Maternal Grandfather Comments: of [place] in 50's Status:Active Maternal Grandmother Comments:lived to 80's Status:Active Mother Comments: breast cancer at 67 yo Status:Active niece colon cancer Status:Active Sister 1 Comments: by suicide at 78 yo. younger. had doctorate from [place] had fall and cervical spine injury. not able to use her arms. Status:Active Unknown Family Member Name Dates Details Father Comments: 88yo supranucl ear palsy. Status:Active Maternal Grandfather Comments: of [place] in 50's Status:Active Maternal Grandmother Comments:lived to 80's Status:Active Mother Comments: breast cancer at 67 yo Status:Active niece colon cancer Status:Active Sister 1 Comments: by suicide at 78 yo. younger. had doctorate from [employer] had fall and cervical spine injury. not able to use her arms. Status:Active Unknown Family Member Name Dates Details Father Comments: 88yo supranucl ear palsy. Status:Active Maternal Grandfather Comments: of [place] in 50's Status:Active Maternal Grandmother Comments:lived to 80's Status:Active Mother Comments: breast cancer at 67 yo Status:Active niece colon cancer Status:Active Sister 1 Comments: by suicide at 78 yo. younger. had doctorate from [employer] had fall and cervical spine injury. not able to use her arms. Status:Active Unknown Family Member Name Dates Details Father Comments: 88yo supranucl ear palsy. Status:Active Maternal Grandfather Comments: of [place] in 50's Status:Active Maternal Grandmother Comments:lived to 80's Status:Active Mother Comments: breast cancer at 67 yo Status:Active niece colon cancer Status:Active Sister 1 Comments: by suicide at 78 yo. younger. had doctorate from [employer] had fall and cervical spine injury. not able to use her arms. Status:Active Unknown Family Member Name Dates Details Father Comments: 88yo supranucl ear palsy. Status:Active Maternal Grandfather Comments: of [place] in 50's Status:Active Maternal Grandmother Comments:lived to 80's Status:Active Mother Comments: breast cancer at 67 yo Status:Active niece colon cancer Status:Active Sister 1 Comments: by suicide at 78 yo. younger. had doctorate from [place] had fall and cervical spine injury. not able to use her arms. Status:Active Unknown Family Member Name Dates Details Father Comments: 88yo supranucl ear palsy. Status:Active Maternal Grandfather Comments: of [place] in 50's Status:Active Maternal Grandmother Comments:lived to 80's Status:Active Mother Comments: breast cancer at 67 yo Status:Active niece colon cancer Status:Active Sister 1 Comments: by suicide at 78 yo. younger. had doctorate from [place] had fall and cervical spine injury. not able to use her arms. Status:Active Unknown Family Member Name Dates Details Father Comments: 88yo supranucl ear palsy. Status:Active Maternal Grandfather Comments: of [place] in 50's Status:Active Maternal Grandmother Comments:lived to 80's Status:Active Mother Comments: breast cancer at 67 yo Status:Active niece colon cancer Status:Active Sister 1 Comments: by suicide at 78 yo. younger. had doctorate from [place] had fall and cervical spine injury. not able to use her arms. Status:Active Unknown Family Member Name Dates Details Father Comments: 88yo supranucl ear palsy. Status:Active Maternal Grandfather Comments: of [place] in 50's Status:Active Maternal Grandmother Comments:lived to 80's Status:Active Mother Comments: breast cancer at 67 yo Status:Active niece colon cancer Status:Active Sister 1 Comments: by suicide at 78 yo. younger. had doctorate from [place] had fall and cervical spine injury. not able to use her arms. Status:Active Unknown Family Member Name Dates Details Father Comments: 88yo supranucl ear palsy. Status:Active Maternal Grandfather Comments: of [place] in 50's Status:Active Maternal Grandmother Comments:lived to 80's Status:Active Mother Comments: breast cancer at 67 yo Status:Active niece colon cancer Status:Active Sister 1 Comments: by suicide at 78 yo. younger. had doctorate from [place] had fall and cervical spine injury. not able to use her arms. Status:Active Unknown Family Member Name Dates Details Father Comments: 88yo supranucl ear palsy. Status:Active Maternal Grandfather Comments: of [place] in 50's Status:Active Maternal Grandmother Comments:lived to 80's Status:Active Mother Comments: breast cancer at 67 yo Status:Active niece colon cancer Status:Active Sister 1 Comments: by suicide at 78 yo. younger. had doctorate from [place] had fall and cervical spine injury. not able to use her arms. Status:Active Unknown Family Member Name Dates Details Father Comments: 88yo supranucl ear palsy. Status:Active Maternal Grandfather Comments: of [place] in 50's Status:Active Maternal Grandmother Comments:lived to 80's Status:Active Mother Comments: breast cancer at 67 yo Status:Active niece colon cancer Status:Active Sister 1 Comments: by suicide at 78 yo. younger. had doctorate from [place] had fall and cervical spine injury. not able to use her arms. Status:Active Unknown Family Member Name Dates Details Father Comments: 88yo supranucl ear palsy. Status:Active Maternal Grandfather Comments: of [place] in 50's Status:Active Maternal Grandmother Comments:lived to 80's Status:Active Mother Comments: breast cancer at 67 yo Status:Active niece colon cancer Status:Active Sister 1 Comments: by suicide at 78 yo. younger. had doctorate from [place] had fall and cervical spine injury. not able to use her arms. Status:Active Unknown Family Member Name Dates Details Father Comments: 88yo supranucl ear palsy. Status:Active Maternal Grandfather Comments: of [place] in 50's Status:Active Maternal Grandmother Comments:lived to 80's Status:Active Mother Comments: breast cancer at 67 yo Status:Active niece colon cancer Status:Active Sister 1 Comments: by suicide at 78 yo. younger. had doctorate from [place] had fall and cervical spine injury. not able to use her arms. Status:Active Unknown Family Member Name Dates Details Father Comments: 88yo supranucl ear palsy. Status:Active Maternal Grandfather Comments: of [place] in 50's Status:Active Maternal Grandmother Comments:lived to 80's Status:Active Mother Comments: breast cancer at 67 yo Status:Active niece colon cancer Status:Active Sister 1 Comments: by suicide at 78 yo. younger. had doctorate from [place] had fall and cervical spine injury. not able to use her arms. Status:Active Unknown Family Member Name Dates Details Father Comments: 88yo supranucl ear palsy. Status:Active Maternal Grandfather Comments: of [place] in 50's Status:Active Maternal Grandmother Comments:lived to 80's Status:Active Mother Comments: breast cancer at 67 yo Status:Active niece colon cancer Status:Active Sister 1 Comments: by suicide at 78 yo. younger. had doctorate from [place] had fall and cervical spine injury. not able to use her arms. Status:Active Unknown Family Member Name Dates Details Father Comments: 88yo supranucl ear palsy. Status:Active Maternal Grandfather Comments: of [place] in 50's Status:Active Maternal Grandmother Comments:lived to 80's Status:Active Mother Comments: breast cancer at 67 yo Status:Active niece colon cancer Status:Active Sister 1 Comments: by suicide at 78 yo. younger. had doctorate from [place] had fall and cervical spine injury. not able to use her arms. Status:Active Unknown Family Member Name Dates Details Father Comments: 88yo supranucl ear palsy. Status:Active Maternal Grandfather Comments: of [place] in 50's Status:Active Maternal Grandmother Comments:lived to 80's Status:Active Mother Comments: breast cancer at 67 yo Status:Active niece colon cancer Status:Active Sister 1 Comments: by suicide at 78 yo. younger. had doctorate from [place] had fall and cervical spine injury. not able to use her arms. Status:Active Unknown Family Member Name Dates Details Father Comments: 88yo supranucl ear palsy. Status:Active Maternal Grandfather Comments: of [place] in 50's Status:Active Maternal Grandmother Comments:lived to 80's Status:Active Mother Comments: breast cancer at 67 yo Status:Active niece colon cancer Status:Active Sister 1 Comments: by suicide at 78 yo. younger. had doctorate from [place] had fall and cervical spine injury. not able to use her arms. Status:Active Unknown Family Member Name Dates Details Father Comments: 88yo supranucl ear palsy. Status:Active Maternal Grandfather Comments: of [place] in 50's Status:Active Maternal Grandmother Comments:lived to 80's Status:Active Mother Comments: breast cancer at 67 yo Status:Active niece colon cancer Status:Active Sister 1 Comments: by suicide at 78 yo. younger. had doctorate from [place] had fall and cervical spine injury. not able to use her arms. Status:Active Unknown Family Member Name Dates Details Father Comments: 88yo supranucl ear palsy. Status:Active Maternal Grandfather Comments: of [place] in 50's Status:Active Maternal Grandmother Comments:lived to 80's Status:Active Mother Comments: breast cancer at 67 yo Status:Active niece colon cancer Status:Active Sister 1 Comments: by suicide at 78 yo. younger. had doctorate from [place] had fall and cervical spine injury. not able to use her arms. Status:Active Unknown Family Member Name Dates Details Father Comments: 88yo supranucl ear palsy. Status:Active Maternal Grandfather Comments: of [place] in 50's Status:Active Maternal Grandmother Comments:lived to 80's Status:Active Mother Comments: breast cancer at 67 yo Status:Active niece colon cancer Status:Active Sister 1 Comments: by suicide at 78 yo. younger. had doctorate from [place] had fall and cervical spine injury. not able to use her arms. Status:Active Unknown Family Member Name Dates Details Father Comments: 88yo supranucl ear palsy. Status:Active Maternal Grandfather Comments: of [place] in 50's Status:Active Maternal Grandmother Comments:lived to 80's Status:Active Mother Comments: breast cancer at 67 yo Status:Active niece colon cancer Status:Active Sister 1 Comments: by suicide at 78 yo. younger. had doctorate from [place] had fall and cervical spine injury. not able to use her arms. Status:Active Unknown Family Member Name Dates Details Father Comments: 88yo supranucl ear palsy. Status:Active Maternal Grandfather Comments: of [place] in 50's Status:Active Maternal Grandmother Comments:lived to 80's Status:Active Mother Comments: breast cancer at 67 yo Status:Active niece colon cancer Status:Active Sister 1 Comments: by suicide at 78 yo. younger. had doctorate from [place] had fall and cervical spine injury. not able to use her arms. Status:Active Unknown Family Member Name Dates Details Father Comments: 88yo supranucl ear palsy. Status:Active Maternal Grandfather Comments: of [place] in 50's Status:Active Maternal Grandmother Comments:lived to 80's Status:Active Mother Comments: breast cancer at 67 yo Status:Active niece colon cancer Status:Active Sister 1 Comments: by suicide at 78 yo. younger. had doctorate from [place] had fall and cervical spine injury. not able to use her arms. Status:Active Unknown Family Member Name Dates Details Father Comments: 88yo supranucl ear palsy. Status:Active Maternal Grandfather Comments: of [place] in 50's Status:Active Maternal Grandmother Comments:lived to 80's Status:Active Mother Comments: breast cancer at 67 yo Status:Active niece colon cancer Status:Active Sister 1 Comments: by suicide at 78 yo. younger. had doctorate from [place] had fall and cervical spine injury. not able to use her arms. Status:Active Unknown Family Member Name Dates Details Father Comments: 88yo supranucl ear palsy. Status:Active Maternal Grandfather Comments: of [place] in 50's Status:Active Maternal Grandmother Comments:lived to 80's Status:Active Mother Comments: breast cancer at 67 yo Status:Active niece colon cancer Status:Active Sister 1 Comments: by suicide at 78 yo. younger. had doctorate from [place] had fall and cervical spine injury. not able to use her arms. Status:Active Unknown Family Member Name Dates Details Father Comments: 88yo supranucl ear palsy. Status:Active Maternal Grandfather Comments: of [place] in 50's Status:Active Maternal Grandmother Comments:lived to 80's Status:Active Mother Comments: breast cancer at 67 yo Status:Active niece colon cancer Status:Active Sister 1 Comments: by suicide at 78 yo. younger. had doctorate from [place] had fall and cervical spine injury. not able to use her arms. Status:Active Unknown Family Member Name Dates Details Father Comments: 88yo supranucl ear palsy. Status:Active Maternal Grandfather Comments: of [place] in 50's Status:Active Maternal Grandmother Comments:lived to 80's Status:Active Mother Comments: breast cancer at 67 yo Status:Active niece colon cancer Status:Active Sister 1 Comments: by suicide at 78 yo. younger. had doctorate from [place] had fall and cervical spine injury. not able to use her arms. Status:Active Unknown Family Member Name Dates Details Father Comments: 88yo supranucl ear palsy. Status:Active Maternal Grandfather Comments: of [place] in 50's Status:Active Maternal Grandmother Comments:lived to 80's Status:Active Mother Comments: breast cancer at 67 yo Status:Active niece colon cancer Status:Active Sister 1 Comments: by suicide at 78 yo. younger. had doctorate from [place] had fall and cervical spine injury. not able to use her arms. Status:Active Unknown Family Member Name Dates Details Father Comments: 88yo supranucl ear palsy. Status:Active Maternal Grandfather Comments: of [place] in 50's Status:Active Maternal Grandmother Comments:lived to 80's Status:Active Mother Comments: breast cancer at 67 yo Status:Active niece colon cancer Status:Active Sister 1 Comments: by suicide at 78 yo. younger. had doctorate from [place] had fall and cervical spine injury. not able to use her arms. Status:Active Unknown Family Member Name Dates Details Father Comments: 88yo supranucl ear palsy. Status:Active Maternal Grandfather Comments: of [place] in 50's Status:Active Maternal Grandmother Comments:lived to 80's Status:Active Mother Comments: breast cancer at 67 yo Status:Active niece colon cancer Status:Active Sister 1 Comments: by suicide at 78 yo. younger. had doctorate from [place] had fall and cervical spine injury. not able to use her arms. Status:Active Unknown Family Member Name Dates Details Father Comments: 88yo supranucl ear palsy. Status:Active Maternal Grandfather Comments: of [place] in 50's Status:Active Maternal Grandmother Comments:lived to 80's Status:Active Mother Comments: breast cancer at 67 yo Status:Active niece colon cancer Status:Active Sister 1 Comments: by suicide at 78 yo. younger. had doctorate from [place] had fall and cervical spine injury. not able to use her arms. Status:Active Unknown Family Member Name Dates Details Father Comments: 88yo supranucl ear palsy. Status:Active Maternal Grandfather Comments: of [place] in 50's Status:Active Maternal Grandmother Comments:lived to 80's Status:Active Mother Comments: breast cancer at 67 yo Status:Active niece colon cancer Status:Active Sister 1 Comments: by suicide at 78 yo. younger. had doctorate from [place] had fall and cervical spine injury. not able to use her arms. Status:Active Unknown Family Member Name Dates Details Father Comments: 88yo supranucl ear palsy. Status:Active Maternal Grandfather Comments: of [place] in 50's Status:Active Maternal Grandmother Comments:lived to 80's Status:Active Mother Comments: breast cancer at 67 yo Status:Active niece colon cancer Status:Active Sister 1 Comments: by suicide at 78 yo. younger. had doctorate from [place] had fall and cervical spine injury. not able to use her arms. Status:Active Unknown Family Member Name Dates Details Father Comments: 88yo supranucl ear palsy. Status:Active Maternal Grandfather Comments: of [place] in 50's Status:Active Maternal Grandmother Comments:lived to 80's Status:Active Mother Comments: breast cancer at 67 yo Status:Active niece colon cancer Status:Active Sister 1 Comments: by suicide at 78 yo. younger. had doctorate from [place] had fall and cervical spine injury. not able to use her arms. Status:Active Unknown Family Member Name Dates Details Father Comments: 88yo supranucl ear palsy. Status:Active Maternal Grandfather Comments: of [place] in 50's Status:Active Maternal Grandmother Comments:lived to 80's Status:Active Mother Comments: breast cancer at 67 yo Status:Active niece colon cancer Status:Active Sister 1 Comments: by suicide at 78 yo. younger. had doctorate from [place] had fall and cervical spine injury. not able to use her arms. Status:Active Unknown Family Member Name Dates Details Father Comments: 88yo supranucl ear palsy. Status:Active Maternal Grandfather Comments: of [place] in 50's Status:Active Maternal Grandmother Comments:lived to 80's Status:Active Mother Comments: breast cancer at 67 yo Status:Active niece colon cancer Status:Active Sister 1 Comments: by suicide at 78 yo. younger. had doctorate from [place] had fall and cervical spine injury. not able to use her arms. Status:Active Unknown Family Member Name Dates Details Father Comments: 88yo supranucl ear palsy. Status:Active Maternal Grandfather Comments: of [place] in 50's Status:Active Maternal Grandmother Comments:lived to 80's Status:Active Mother Comments: breast cancer at 67 yo Status:Active niece colon cancer Status:Active Sister 1 Comments: by suicide at 78 yo. younger. had doctorate from [place] had fall and cervical spine injury. not able to use her arms. Status:Active Unknown Family Member Name Dates Details Father Comments: 88yo supranucl ear palsy. Status:Active Maternal Grandfather Comments: of [place] in 50's Status:Active Maternal Grandmother Comments:lived to 80's Status:Active Mother Comments: breast cancer at 67 yo Status:Active niece colon cancer Status:Active Sister 1 Comments: by suicide at 78 yo. younger. had doctorate from [place] had fall and cervical spine injury. not able to use her arms. Status:Active Unknown Family Member Name Dates Details Father Comments: 88yo supranucl ear palsy. Status:Active Maternal Grandfather Comments: of [place] in 50's Status:Active Maternal Grandmother Comments:lived to 80's Status:Active Mother Comments: breast cancer at 67 yo Status:Active niece colon cancer Status:Active Sister 1 Comments: by suicide at 78 yo. younger. had doctorate from [place] had fall and cervical spine injury. not able to use her arms. Status:Active Unknown Family Member Name Dates Details Father Comments: 88yo supranucl ear palsy. Status:Active Maternal Grandfather Comments: of [place] in 50's Status:Active Maternal Grandmother Comments:lived to 80's Status:Active Mother Comments: breast cancer at 67 yo Status:Active niece colon cancer Status:Active Sister 1 Comments: by suicide at 78 yo. younger. had doctorate from [place] had fall and cervical spine injury. not able to use her arms. Status:Active Unknown Family Member Name Dates Details Father Comments: 88yo supranucl ear palsy. Status:Active Maternal Grandfather Comments: of [place] in 50's Status:Active Maternal Grandmother Comments:lived to 80's Status:Active Mother Comments: breast cancer at 67 yo Status:Active niece colon cancer Status:Active Sister 1 Comments: by suicide at 78 yo. younger. had doctorate from [place] had fall and cervical spine injury. not able to use her arms. Status:Active Unknown Family Member Name Dates Details Father Comments: 88yo supranucl ear palsy. Status:Active Maternal Grandfather Comments: of [place] in 50's Status:Active Maternal Grandmother Comments:lived to 80's Status:Active Mother Comments: breast cancer at 67 yo Status:Active niece colon cancer Status:Active Sister 1 Comments: by suicide at 78 yo. younger. had doctorate from [place] had fall and cervical spine injury. not able to use her arms. Status:Active Unknown Family Member Name Dates Details Father Comments: 88yo supranucl ear palsy. Status:Active Maternal Grandfather Comments: of [place] in 50's Status:Active Maternal Grandmother Comments:lived to 80's Status:Active Mother Comments: breast cancer at 67 yo Status:Active niece colon cancer Status:Active Sister 1 Comments: by suicide at 78 yo. younger. had doctorate from [place] had fall and cervical spine injury. not able to use her arms. Status:Active Advance Directives Name Dates Details Immunization Registry [place] - Effective on 08/19/2021. Expiration date unspecified Effective:19-Aug-2021 Name Dates Details Immunization Registry [place] - Effective on 08/19/2021. Expiration date unspecified Effective:19-Aug-2021 Name Dates Details Immunization Registry [place] - Effective on 08/19/2021. Expiration date unspecified Effective:19-Aug-2021 Name Dates Details Immunization Registry [place] - Effective on 08/19/2021. Expiration date unspecified Effective:19-Aug-2021 Name Dates Details Immunization Registry [place] - Effective on 08/19/2021. Expiration date unspecified Effective:19-Aug-2021 Name Dates Details Immunization Registry [place] - Effective on 08/19/2021. Expiration date unspecified Effective:19-Aug-2021 Name Dates Details Immunization Registry [place] - Effective on 08/19/2021. Expiration date unspecified Effective:19-Aug-2021 Name Dates Details Immunization Registry [place] - Effective on 08/19/2021. Expiration date unspecified Effective:19-Aug-2021 Name Dates Details Immunization Registry [place] - Effective on 08/19/2021. Expiration date unspecified Effective:19-Aug-2021 Name Dates Details Immunization Registry [place] - Effective on 08/19/2021. Expiration date unspecified Effective:19-Aug-2021 Name Dates Details Immunization Registry [place] - Effective on 08/19/2021. Expiration date unspecified Effective:19-Aug-2021 Name Dates Details Immunization Registry [place] - Effective on 08/19/2021. Expiration date unspecified Effective:19-Aug-2021 Name Dates Details Immunization Registry [place] - Effective on 08/19/2021. Expiration date unspecified Effective:19-Aug-2021 Name Dates Details Immunization Registry [place] - Effective on 08/19/2021. Expiration date unspecified Effective:19-Aug-2021 Name Dates Details Immunization Registry [place] - Effective on 08/19/2021. Expiration date unspecified Effective:19-Aug-2021 Name Dates Details Immunization Registry [place] - Effective on 08/19/2021. Expiration date unspecified Effective:19-Aug-2021 Name Dates Details Immunization Registry [place] - Effective on 08/19/2021. Expiration date unspecified Effective:19-Aug-2021 Name Dates Details Immunization Registry [place] - Effective on 08/19/2021. Expiration date unspecified Effective:19-Aug-2021 Name Dates Details Immunization Registry [place] - Effective on 08/19/2021. Expiration date unspecified Effective:19-Aug-2021 Name Dates Details Immunization Registry [place] - Effective on 08/19/2021. Expiration date unspecified Effective:19-Aug-2021 Name Dates Details Immunization Registry [place] - Effective on 08/19/2021. Expiration date unspecified Effective:19-Aug-2021 Name Dates Details Immunization Registry [place] - Effective on 08/19/2021. Expiration date unspecified Effective:19-Aug-2021 Name Dates Details Immunization Registry [place] - Effective on 08/19/2021. Expiration date unspecified Effective:19-Aug-2021 Name Dates Details Immunization Registry [place] - Effective on 08/19/2021. Expiration date unspecified Effective:19-Aug-2021 Name Dates Details Immunization Registry [place] - Effective on 08/19/2021. Expiration date unspecified Effective:19-Aug-2021 Name Dates Details Immunization Registry [place] - Effective on 08/19/2021. Expiration date unspecified Effective:19-Aug-2021 Name Dates Details Immunization Registry [place] - Effective on 08/19/2021. Expiration date unspecified Effective:19-Aug-2021 Name Dates Details Immunization Registry [place] - Effective on 08/19/2021. Expiration date unspecified Effective:19-Aug-2021 Name Dates Details Immunization Registry [place] - Effective on 08/19/2021. Expiration date unspecified Effective:19-Aug-2021 Name Dates Details Immunization Registry [place] - Effective on 08/19/2021. Expiration date unspecified Effective:19-Aug-2021 Name Dates Details Immunization Registry [place] - Effective on 08/19/2021. Expiration date unspecified Effective:19-Aug-2021 Name Dates Details Immunization Registry [place] - Effective on 08/19/2021. Expiration date unspecified Effective:19-Aug-2021 Name Dates Details Immunization Registry [place] - Effective on 08/19/2021. Expiration date unspecified Effective:19-Aug-2021 Name Dates Details Immunization Registry [place] - Effective on 08/19/2021. Expiration date unspecified Effective:19-Aug-2021 Name Dates Details Immunization Registry [place] - Effective on 08/19/2021. Expiration date unspecified Effective:19-Aug-2021 Name Dates Details Immunization Registry [place] - Effective on 08/19/2021. Expiration date unspecified Effective:19-Aug-2021 Name Dates Details Immunization Registry [place] - Effective on 08/19/2021. Expiration date unspecified Effective:19-Aug-2021 Name Dates Details Immunization Registry [place] - Effective on 08/19/2021. Expiration date unspecified Effective:19-Aug-2021 Summary Purpose Additional Source Comments Source Comments (unrecognize d section and content) In the event this informatio n is protected by the Federal Confidentiality of Alcohol and Drug Abuse Patient Records regulations: The Federal rules restrict any use of the information to criminally investigate or prosecute any alcohol or drug abuse patient.[facility] the event this information is protected by the Federal Confidentiality of Alcohol and Drug Abuse Patient Records regulations: The Federal rules restrict any use of the information to criminally investigate or prosecute any alcohol or drug abuse patient.[facility] the event this information is protected by the Federal Confidentiality of Alcohol and Drug Abuse Patient Records regulations: The Federal rules restrict any use of the information to criminally investigate or prosecute any alcohol or drug abuse patient.[facility] Reason for Visit (unrecogniz ed section and content) Reason Comments Received Outside Medical Records Care Teams (unrecognized sec tion and content) [employer] Relationship Specialty Start Date End Date Joelle Stern MD PCP - General Internal Medicine 12/10/21 [employer] Relationship Specialty Start Date End Date Joelle Stern MD PCP - General Internal Medicine 12/10/21 (unrecognized sect ion and content) No Status Records FoundNo Status Records Found INFORMATION SOURCE (unrecogn ized section and content) DATE CREATED AUTHOR AUTHOR'S ORGANIZ ATION 05/03/2023 [facility] FOR RECORDS PERTAINING TO PATIENTS WHO ARE OR HAVE BEEN ENROLLED IN A CHEMICAL DEPENDENCY/SUBSTANCEABUSE PROGRAM, SOME INFORMATION MAY BE OMITTED. This clinical summary was aggregated from multiple sources. Caution should be exercised in using it in the provision of clinical care. This summary normalizes information from multiple sources, and as a consequence, information in this document may materially change the coding, format and clinical context of patient data. In addition, data may be omitted in some cases. CLINICAL DECISIONS SHOULD BE BASED ON THE PRIMARY CLINICAL RECORDS. [facility]. provides no warranty or guarantee of the accuracy or completeness of information in this document.
[2023-12-23 04:20] LABS: Absolute Neutrophil Count 6.3 X10^3/uL (2.0-7.7); Basophil# 0.04 X10^3/uL; Basophil% 0.4 % (0-1); Hematocrit 45.1 % (40-54); Hemoglobin 14.3 g/dL (13.0-16.5); Lymphocyte % 22.5 % (19-41); Mean Corp Hgb Conc 31.7 g/dL (32-36); Mean Corpuscular Hgb 30.4 pg (27.0-32.0); Mean Platelet Vol. 11.7 fl (6.2-12.0); Monocyte# 1.03 X10^3/uL; Monocyte% 10.5 % (0-10); NRBC Flagged by Analyzer 0 % (0-5); Neutrophil # 6.28 X10^3/uL (2.7-7.7); Neutrophil % 64.4 % (47-70); Platelet Count 256 K/mm3 (150-450); RBC Distribution Width CV 13.6 % (11.6-14.6); RBC Distribution Width SD 48.5 fl (35.1-43.9); White Blood Count 9.8 K/mm3 (4.4-11.0)
--- NOTE | 2023-12-23 04:22 | EX.ED.DYSGE1 ---
HPI <Dr. Nigel Cheung DO - Last Filed: 12/23/23 05:50> History of Present Illness Chief Complaint: Confusion Informant: patient, spouse/S.O. and EMS Narrative Narrative: 83-year-old male presenting to the emergency room with confusion. Patient was recently seen in this emergency department by myself with a chief complaint of fall and found to have T12 compression fracture. He was initially seen and the initial scans were read as negative. He followed up with primary care received a prescription for tramadol and the next day for [place]. He was then seen in the emergency department again where the CT then revealed a T12 compression fracture. I saw him again on that visit and discussed the case with Dr. Florian his pain management doctor who recommended giving him some baclofen and a back brace if we could find 1. Unfortunately no back brace was available. Patient states that he did follow-up with Dr. Florian this past week. At least according to the prescription monitoring program he received prescription for some oxycodone. Patient wonders if he took too many oxycodone tonight. states that at dinner he seemed to be falling asleep picking at his food and was not making much sense. She assisted him into bed around 1930 hrs. He had some oxycodone on the nightstand. He does not know if he took it at night as the but it suspected that he did. Neither 1 can tell me how much he would have taken or how much she has taken in the last 24 hours. He also would have had some muscle relaxant which should be the baclofen. He states my back was really hurting . EMS notes pinpoint pupils. Patient denies any new trauma. He states his back right now feels very good. Patient was noted to be wearing his 's glasses when she arrived. PFSH <Dr. Nigel Cheung DO - Last Filed: 12/23/23 05:50> [facility] Medical History Atrial flutter CKD (chronic kidney disease), stage III Depression Dyspnea Fatigue HFrEF (heart failure with reduced ejection fraction) History of hay fever HTN (hypertension) Hyperkalemia, diminished renal excretion Hyperlipidemia Left bundle branch block (LBBB) Left ventricular diastolic dysfunction LVH (left ventricular hypertrophy) Non-ischemic cardiomyopathy Obstructive sleep apnea Prostate cancer Sick sinus syndrome Home Medications folic acid 1 mg tablet 1 mg PO BID supplement 10/11/21 [History Last Taken 12/15/21] vitamin B complex 1 cap PO BID vitamin 10/11/21 [History Last Taken 12/15/21] rosuvastatin 20 mg tablet 20 mg PO DAILY cholesterol 12/16/21 [History Last Taken 12/15/21] zolpidem 12.5 mg tablet,extended release,multiphase 12.5 mg PO QHS sleep 04/04/22 [History Last Taken Unknown] apixaban 2.5 mg tablet (Eliquis) 2.5 mg PO BID blood thinner 03/23/23 [History Last Taken Unknown] baclofen 5 mg tablet 5 mg PO TID PRN muscle spasm 5 days #15 tabs 12/15/23 [Rx Last Taken 12/22/23] duloxetine 30 mg capsule,delayed release 30 mg PO BID DEPRESSION 12/15/23 [History Last Taken Unknown] furosemide 40 mg tablet (Lasix) 40 mg PO MOWEFR FLUID RETENTION 12/23/23 [History Last Taken 12/22/23] oxycodone-acetaminophen 5 mg-325 mg tablet 1 tab PO TID PRN ACUTE PAIN 12/23/23 [History Last Taken 12/22/23] polyethylene glycol 3350 17 gram/dose oral powder (Miralax) 17 g PO DAILY PRN constipation 12/23/23 [History Last Taken 12/22/23] Allergy/AdvReac Type Severity Reaction Status Date / Time Iodinated Contrast Media Allergy Severe Shortness Verified 12/23/23 03:35 of breath iodine Allergy Shortness Verified 12/23/23 03:35 of breath Surgical History History of left heart catheterization (12/17/21) History of prostate surgery History of total bilateral knee replacement Hx of appendectomy Social History household members: spouse Smoking Status: Never smoker alcohol intake: current alcohol intake frequency: 0-2 drinks per day Alcohol type: beer, wine and hard liquor details: 1 drink per night substance use type: does not use caffeine: Yes Type: coffee Number of servings: 2 what type of physical activity do you participate in: walking frequency: daily seatbelt use: always ROS <Dr. Nigel Cheung DO - Last Filed: 12/23/23 05:50> ROS ED Constitutional Constitutional ED: Denies chills, fever(s) or weight loss Eyes Eyes: Denies change in vision or diplopia ENT ENT ED: Denies ear pain, rhinorrhea or sore throat Cardiovascular Cardiovascular: Denies chest pain, orthopnea, palpitations or racing heartbeat Respiratory/Chest Respiratory/Chest: Denies cough, dyspnea or orthopnea Gastrointestinal Gastrointestinal: Denies abdominal pain, diarrhea, nausea or vomiting Genitourinary Genitourinary ED: Denies dysuria, hematuria or urinary frequency Musculoskeletal Musculoskeletal: Reports back pain; Denies arthralgias or myalgias Integumentary Denies abscess or rash Neurologic Neurologic: Denies headache(s) or weakness Psychiatric Psychiatric: Denies anxiety, depression, suicidal ideation or suicidal thoughts Endocrine Endocrinology: Denies polydipsia, polyphagia or polyuria Allergic/Immunologic Allergic/Immunologic ED: Denies mouth swelling, tongue swelling or urticaria EXAM <Dr. Nigel Cheung, DO - Last Filed: 12/23/23 05:50> Physical Exam Const Vital Signs: 12/23/23 03:35 12/23/23 05:35 12/23/23 08:42 Temperature 96.7 F L Temperature Source Temporal Pulse Rate 81 76 77 Respiratory Rate 18 16 20 H Blood Pressure 124/94 H 113/78 126/93 H Blood Pressure Mean 104 89 104 Pulse Ox 98 94 98 Oxygen Delivery Method Room Air Room Air Room Air 12/23/23 09:59 Temperature Temperature Source Pulse Rate 77 Respiratory Rate 15 Blood Pressure 126/84 H Blood Pressure Mean 98 Pulse Ox 98 Oxygen Delivery Method Positive well nourished and well developed General Appearance ED: well developed HEENT Reports normocephalic, head/scalp atraumatic and moist mucous membranes Eyes PERRL Eyes Narrative: Pupils are 2 mm bilaterally Neck no lymphadenopathy, supple and no JVD Resp normal respiratory effort and clear to auscultation bilaterally Cardio regular rate, regular rhythm and no murmurs GI normal to inspection, nondistended, normoactive bowel sounds and non-tender Palpation: soft Back/Spine no CVA tenderness and normal ROM Extremity normal to inspection General Extremety ED: Negative for edema General Extremity: Negative for edema Neuro CN's II-XII intact bilaterally Sensorium / Orientation: alert and orientation impaired Motor Exam: strength 5/5 throughout Psych Psych Narrative: He does seem confused having very repetitive statements laughing inexplicably at comments and half finishing sentences Mood & Affect: Negative for depressed or tearful Skin no rashes or lesions noted and no wounds <Dr. Quinton Dukes, DO - Last Filed: 12/23/23 12:07> Physical Exam Const Vital Signs: 12/23/23 03:35 12/23/23 05:35 12/23/23 08:42 Temperature 96.7 F L Temperature Source Temporal Pulse Rate 81 76 77 Respiratory Rate 18 16 20 H Blood Pressure 124/94 H 113/78 126/93 H Blood Pressure Mean 104 89 104 Pulse Ox 98 94 98 Oxygen Delivery Method Room Air Room Air Room Air 12/23/23 09:59 Temperature Temperature Source Pulse Rate 77 Respiratory Rate 15 Blood Pressure 126/84 H Blood Pressure Mean 98 Pulse Ox 98 Oxygen Delivery Method MDM <Dr. Nigel Cheung, DO - Last Filed: 12/23/23 05:50> MDM MDM Narrative Medical decision making narrative: Basic blood work is basically at his baseline with a BUN of 41 creatinine 1.9 white count 9.8 hemoglobin 14.3. Urinalysis negative toxicology is negative CT of the brain negative by independent interpretation of the chest x-ray is no acute process. Patient continues to be alert he continues to have pinpoint pupils and to have confusion. He seems to be moving his face arms and legs appropriately. I am hesitant to give him Narcan as I think this would be very painful and problematic for him. Think a very reasonable thing would be to let him to get some sleep. His will be able to go home and get some sleep. Will wake him up here in a few hours and see if he is better if he is we can let him go home. If however he continues to be confused we will need to consider admission. History & Record Review Discussion w/independent historian: EMS personnel, Patient and Significant other Additional record(s) reviewed:: Prior ED visit and Prior labs Lab Data Attestation: I reviewed the patient's lab results. Labs: Laboratory Results - last 24 hr 12/23/23 12/23/23 12/23/23 03:51 04:55 09:10 WBC 9.8 RBC 4.70 Hgb 14.3 Hct 45.1 MCV 96.0 H MCH 30.4 MCHC 31.7 L RDW Std Deviation 48.5 H RDW Coeff of [place] 13.6 Plt Count 256 MPV 11.7 Immature Gran % (Auto) 0.200 Neut % (Auto) 64.4 Lymph % (Auto) 22.5 [place] % (Auto) 10.5 H Eos % (Auto) 2.0 Baso % (Auto) 0.4 Absolute Neuts (auto) 6.3 Absolute Lymphs (auto) 2.20 Nucleated RBC % 0 Sodium 140 Potassium 4.2 Chloride 109 H Carbon Dioxide 26.0 Anion Gap 5 BUN 41 H Creatinine 1.90 H Estim Creat Clear Calc 31.38 Est GFR (MDRD) Af Amer 44 L Est GFR (MDRD) Non-Af 36 L BUN/Creatinine Ratio 21.6 H Glucose 124 H Calcium 9.2 Troponin I High Sens 68 Urine Color Yellow Urine Clarity Clear Urine pH 5.0 Ur Specific [place] 1.015 Urine Protein Negative Urine Glucose (UA) Normal Urine Ketones Negative Urine Occult Blood Negative Urine Nitrite Negative Urine Bilirubin Negative Urine Urobilinogen Normal Ur Leukocyte Esterase Negative Urine RBC 0 SEEN Urine WBC 0 SEEN Ur Squamous Epith Cells 0 SEEN Urine Bacteria 0 SEEN Urine Mucus 0 SEEN Urine Opiates Screen NEGATIVE Urine Methadone Screen NEGATIVE Ur Barbiturates Screen NEGATIVE Ur Phencyclidine Scrn NEGATIVE Ur Amphetamines Screen NEGATIVE MDMA (Ecstasy) Screen NEGATIVE U Benzodiazepines Scrn NEGATIVE Urine Cocaine Screen NEGATIVE U Cannabinoids Screen NEGATIVE Ur Drug Screen Comment Ethyl Alcohol 4.0 Radiography Diagnostic Testing: Clinical Impression(s) from Imaging Studies Brain CT 12/23/23 04:06 IMPRESSION: 1. No acute intracranial abnormalities. 2. Age-related changes. Electronically Signed: Vidal Marie MD at 4:53 EST , Chest X-Ray 12/23/23 04:15 IMPRESSION: No acute findings in the chest. Electronically Signed: Vidal Marie MD at 4:53 EST , <Dr. Quinton Dukes, DO - Last Filed: 12/23/23 12:07> [facility] Narrative Medical decision making narrative: Basic blood work is basically at his baseline with a BUN of 41 creatinine 1.9 white count 9.8 hemoglobin 14.3. Urinalysis negative toxicology is negative CT of the brain negative by independent interpretation of the chest x-ray is no acute process. Patient continues to be alert he continues to have pinpoint pupils and to have confusion. He seems to be moving his face arms and legs appropriately. I am hesitant to give him Narcan as I think this would be very painful and problematic for him. Think a very reasonable thing would be to let him to get some sleep. His will be able to go home and get some sleep. Will wake him up here in a few hours and see if he is better if he is we can let him go home. If however he continues to be confused we will need to consider admission. Patient was turned over to me by Dr. Cheung @ 0700 Brief history: 83-year-old male here with confusion Physical exam: Patient was alert, oriented to person place (baseline alert and oriented to person place and time), had no focal deficits, no focal cardiopulmonary normalities, no leg swelling or edema Labs and images reviewed (if obtained): CT scan of the brain was negative for acute intracranial pathology I have personally reviewed the patient's chest x-ray. Chest x-ray is unremarkable for pulmonary edema, pneumothorax, pneumonia or focal cardiopulmonary abnormality. Alcohol level negative CBC without leukocytosis, severe anemia, no thrombocytopenia. BMP with CKD High-sensitivity troponin is negative, no evidence of myocardial ischemia Urinalysis shows no evidence of urinary inflammation suggestive of UTI Urine tox screen negative EKG with rate controlled A-fib, left axis deviation, left bundle branch block, no obvious STEMI (similar to prior EKG on 12/15/2023) The synthesis of the patient's history, physical exam, labs, images, reevaluation suggest altered mental status. Unclear etiology at this time however given his advanced age, and the fact he lives at home alone. Means admission is likely the safest option. Discussed with hospitalist Dr. Osuna MDM/plan: Admit to medical floor Lab Data Labs: Laboratory Results - last 24 hr 12/23/23 12/23/23 12/23/23 03:51 04:55 09:10 WBC 9.8 RBC 4.70 Hgb 14.3 Hct 45.1 MCV 96.0 H MCH 30.4 MCHC 31.7 L RDW Std Deviation 48.5 H RDW Coeff of [place] 13.6 Plt Count 256 MPV 11.7 Immature Gran % (Auto) 0.200 Neut % (Auto) 64.4 Lymph % (Auto) 22.5 [place] % (Auto) 10.5 H Eos % (Auto) 2.0 Baso % (Auto) 0.4 Absolute Neuts (auto) 6.3 Absolute Lymphs (auto) 2.20 Nucleated RBC % 0 Sodium 140 Potassium 4.2 Chloride 109 H Carbon Dioxide 26.0 Anion Gap 5 BUN 41 H Creatinine 1.90 H Estim Creat Clear Calc 31.38 Est GFR (MDRD) Af Amer 44 L Est GFR (MDRD) Non-Af 36 L BUN/Creatinine Ratio 21.6 H Glucose 124 H Calcium 9.2 Troponin I High Sens 68 Urine Color Yellow Urine Clarity Clear Urine pH 5.0 Ur Specific [place] 1.015 Urine Protein Negative Urine Glucose (UA) Normal Urine Ketones Negative Urine Occult Blood Negative Urine Nitrite Negative Urine Bilirubin Negative Urine Urobilinogen Normal Ur Leukocyte Esterase Negative Urine RBC 0 SEEN Urine WBC 0 SEEN Ur Squamous Epith Cells 0 SEEN Urine Bacteria 0 SEEN Urine Mucus 0 SEEN Urine Opiates Screen NEGATIVE Urine Methadone Screen NEGATIVE Ur Barbiturates Screen NEGATIVE Ur Phencyclidine Scrn NEGATIVE Ur Amphetamines Screen NEGATIVE MDMA (Ecstasy) Screen NEGATIVE U Benzodiazepines Scrn NEGATIVE Urine Cocaine Screen NEGATIVE U Cannabinoids Screen NEGATIVE Ur Drug Screen Comment Ethyl Alcohol 4.0 Radiography Diagnostic Testing: Clinical Impression(s) from Imaging Studies Brain CT 12/23/23 04:06 IMPRESSION: 1. No acute intracranial abnormalities. 2. Age-related changes. Electronically Signed: Vidal Marie MD at 4:53 EST , Chest X-Ray 12/23/23 04:15 IMPRESSION: No acute findings in the chest. Electronically Signed: Vidal Marie MD at 4:53 EST , Discharge Plan Disposition Disposition: Acute Care Hospital [facility] Discharge Date/Time: 12/23/23 10:46
[2023-12-23 04:31] LABS: Anion Gap 5 (5-15); BUN 41 mg/dL (7-18); BUN/Creat Ratio 21.6 RATIO (10-20); Calcium,Total 9.2 mg/dL (8.5-10.1); Chloride 109 mmol/L (98-107); EST Glomerular Filtration Rate 36 mL/min (>60); Est Glom Filt Rate - Afr Amer 44 mL/min (>60); Estimated Creatinine Clearance 31.38 ml/min; Glucose 124 mg/dL (74-106); Potassium 4.2 mmol/L (3.5-5.1); Sodium Level 140 mmol/L (136-145)
[2023-12-23 05:00] LABS: Bacteria 0 SEEN /hpf (None Seen); Mucous, Urine 0 SEEN /hpf (<or=2+); Red Blood Cells-Urine 0 SEEN /hpf (0-5); Squamous Epithelial Cells - UA 0 SEEN /hpf (0-5); White Blood Cells 0 SEEN /hpf (0-5)
[2023-12-23 05:10] LABS: Color, Urine Yellow (Yellow); Glucose, Dipstick Normal (Normal); Ketone-Dipstick Negative (Negative); Protein-Dipstick Negative (Negative); Specific Gravity, Urine 1.015 (1.002-1.030); Urine Bilirubin Dipstick Negative (Negative); Urine Clarity Clear (Clear)
[2023-12-23 05:11] LABS: Leukocyte Esterase-Dipstick Negative /ul (Negative); Nitrite-Dipstick Negative (Negative); Occult Blood-Urine Negative /ul (Negative); Urine Urobilinogen Normal (Normal)
[2023-12-23 05:21] LABS: Amphetamine Urine VISTA NEGATIVE (<1000 ng/mL); Barbiturate Urine VISTA NEGATIVE (< 200 ng/mL); Benzodiazepine Urine VISTA NEGATIVE (< 200 ng/mL); Cocaine Urine VISTA NEGATIVE (< 300 ng/mL); Ecstacy Urine VISTA NEGATIVE (< 500 ng/mL); Methadone Urine VISTA NEGATIVE (< 300 ng/mL); PCP Urine VISTA NEGATIVE (< 25 ng/mL); THC Urine VISTA NEGATIVE (< 50 ng/mL); Vista UDS pH Range 5
[2023-12-23 09:47] LABS: Troponin-I HS 68 pg/mL (3.0-78.0)
--- NOTE | 2023-12-23 10:14 | PCM.HP.STD ---
HPI - General General Date of Service: 12/23/23 Chief Complaint: confusion HPI Narrative BERNY INFANTE, is a 83 M who presents with confusion. Recently, patient has received prescriptions for Percocet as well as baclofen for a recently sustained T12 compression fracture. Patient was seen in the emergency room as well as pain management. Patient may have inadvertently taken too much of some of his medications last night and presents here confused. Patient did undergo workup with brain MRI. That was unremarkable. There was note that patient may have had pinpoint pupils upon EMS arrival. Patient has continued to be confused and have perseveration in regards to being sorry per unclear reasons. Hospice service was contacted for admission as it been several hours and the patient was still confused. [facility] Medical History Atrial flutter CKD (chronic kidney disease), stage III Depression Dyspnea Fatigue HFrEF (heart failure with reduced ejection fraction) History of hay fever HTN (hypertension) Hyperkalemia, diminished renal excretion Hyperlipidemia Left bundle branch block (LBBB) Left ventricular diastolic dysfunction LVH (left ventricular hypertrophy) Non-ischemic cardiomyopathy Obstructive sleep apnea Prostate cancer Sick sinus syndrome Home Medications folic acid 1 mg tablet 1 mg PO BID supplement 10/11/21 [History Last Taken 12/15/21] vitamin B complex 1 cap PO BID vitamin 10/11/21 [History Last Taken 12/15/21] rosuvastatin 20 mg tablet 20 mg PO DAILY cholesterol 12/16/21 [History Last Taken 12/15/21] zolpidem 12.5 mg tablet,extended release,multiphase 12.5 mg PO QHS sleep 04/04/22 [History Last Taken Unknown] apixaban 2.5 mg tablet (Eliquis) 2.5 mg PO BID blood thinner 03/23/23 [History Last Taken Unknown] baclofen 5 mg tablet 5 mg PO TID PRN muscle spasm 5 days #15 tabs 12/15/23 [Rx Last Taken 12/22/23] duloxetine 30 mg capsule,delayed release 30 mg PO BID DEPRESSION 12/15/23 [History Last Taken Unknown] furosemide 40 mg tablet (Lasix) 40 mg PO MOWEFR FLUID RETENTION 12/23/23 [History Last Taken 12/22/23] oxycodone-acetaminophen 5 mg-325 mg tablet 1 tab PO TID PRN ACUTE PAIN 12/23/23 [History Last Taken 12/22/23] polyethylene glycol 3350 17 gram/dose oral powder (Miralax) 17 g PO DAILY PRN constipation 12/23/23 [History Last Taken 12/22/23] Allergy/AdvReac Type Severity Reaction Status Date / Time Iodinated Contrast Media Allergy Severe Shortness Verified 12/23/23 03:35 of breath iodine Allergy Shortness Verified 12/23/23 03:35 of breath Surgical History History of left heart catheterization (12/17/21) History of prostate surgery History of total bilateral knee replacement Hx of appendectomy Social History household members: spouse Smoking Status: Never smoker alcohol intake: current alcohol intake frequency: 0-2 drinks per day Alcohol type: beer, wine and hard liquor details: 1 drink per night substance use type: does not use caffeine: Yes Type: coffee Number of servings: 2 what type of physical activity do you participate in: walking frequency: daily seatbelt use: always ROS Review of Systems ROS Unobtainable: due to encephalopathy Vital Signs Vital Signs Vital Signs: 12/23/23 03:35 12/23/23 05:35 12/23/23 08:42 Temperature 35.9 C L Temperature Source Temporal Pulse Rate 81 76 77 Respiratory Rate 18 16 20 H Blood Pressure 124/94 H 113/78 126/93 H Blood Pressure Mean 104 89 104 Pulse Ox 98 94 98 Oxygen Delivery Method Room Air Room Air Room Air 12/23/23 09:59 Temperature Temperature Source Pulse Rate 77 Respiratory Rate 15 Blood Pressure 126/84 H Blood Pressure Mean 98 Pulse Ox 98 Oxygen Delivery Method Weight Weight: 84.7 kg Body Mass Index (BMI) 26.0 Physical Exam Const no apparent distress Constitutional Narrative: He is perseverating about being sorry . Also inappropriately answers questions such as the date with Kishore . Orientation / Consciousness: confused HEENT normocephalic and head/scalp atraumatic Eyes PERRL and EOMs intact bilaterally Resp normal respiratory effort, no retractions, no use of accessory muscles and clear to auscultation bilaterally Cardio regular rate, regular rhythm, S1 normal heart sound and S2 normal heart sound GI normal to inspection, nondistended, normoactive bowel sounds, soft to palpation and non-tender Extremity normal to inspection Neuro No oriented x3, CN's II-XII intact bilaterally, moves all extremities and no focal motor deficits Sensorium / Orientation: awake, oriented to person and oriented to place Motor Exam: strength 5/5 throughout Psych Mood & Affect: anxious Results Lab / Micro Data Attestation: I reviewed the patient's lab results. 12/23/23 03:51 12/23/23 03:51 Labs: Laboratory Results - last 24 hr 12/23/23 03:51: WBC 9.8, RBC 4.70, Hgb 14.3, Hct 45.1, MCV 96.0 H, MCH 30.4, MCHC 31.7 L, RDW Std Deviation 48.5 H, RDW Coeff of [place] 13.6, Plt Count 256, MPV 11.7, Immature Gran % (Auto) 0.200, Neut % (Auto) 64.4, Lymph % (Auto) 22.5, [place] % (Auto) 10.5 H, Eos % (Auto) 2.0, Baso % (Auto) 0.4, Absolute Neuts (auto) 6.3, Absolute Lymphs (auto) 2.20, Nucleated RBC % 0, Sodium 140, Potassium 4.2, Chloride 109 H, Carbon Dioxide 26.0, Anion Gap 5, BUN 41 H, Creatinine 1.90 H, Estim Creat Clear Calc 31.38, Est GFR (MDRD) Af Amer 44 L, Est GFR (MDRD) Non-Af 36 L, BUN/Creatinine Ratio 21.6 H, Glucose 124 H, Calcium 9.2, Ethyl Alcohol 4.0 12/23/23 04:55: Urine Color Yellow, Urine Clarity Clear, Urine pH 5.0, Ur Specific [place] 1.015, Urine Protein Negative, Urine Glucose (UA) Normal, Urine Ketones Negative, Urine Occult Blood Negative, Urine Nitrite Negative, Urine Bilirubin Negative, Urine Urobilinogen Normal, Ur Leukocyte Esterase Negative, Urine RBC 0 SEEN, Urine WBC 0 SEEN, Ur Squamous Epith Cells 0 SEEN, Urine Bacteria 0 SEEN, Urine Mucus 0 SEEN, Urine Opiates Screen NEGATIVE, Urine Methadone Screen NEGATIVE, Ur Barbiturates Screen NEGATIVE, Ur Phencyclidine Scrn NEGATIVE, Ur Amphetamines Screen NEGATIVE, MDMA (Ecstasy) Screen NEGATIVE, U Benzodiazepines Scrn NEGATIVE, Urine Cocaine Screen NEGATIVE, U Cannabinoids Screen NEGATIVE, Ur Drug Screen Comment 12/23/23 09:10: Troponin I High Sens 68 Imaging Radiology Impression Brain CT 12/23/23 04:06 IMPRESSION: 1. No acute intracranial abnormalities. 2. Age-related changes. Electronically Signed: Vidal Marie MD at 4:53 EST Reading Location ID and State: [facility] / [place] Tel , Service support , Chest X-Ray 12/23/23 04:15 IMPRESSION: No acute findings in the chest. Electronically Signed: Vidal Marie MD at 4:53 EST Reading Location ID and State: [facility] / [place] Tel , Service support , Assessment & Plan Assessment/Plan (1) Toxic encephalopathy: PLAN: Plan Toxic cephalopathy Secondary to Percocet and baclofen. Patient may have taken excess medications sometime last night. Hold off any reversal agents such as Narcan at this point in time and let medications run through his system. Patient has no focal deficits so do not feel any additional imaging and workup is necessary at this time. T12 compression fracture Subsequent visit. Patient will follow-up pain management as outpatient. Pain control with acetaminophen and ibuprofen. Avoid narcotics as well as other potentiating agents at this time. VTE prophylaxis: Not indicated as patient is currently observation status. Anticipate that if the patient improves that he should be ready for discharge either later today or on the fourth. Charges/Coding Visit Charges Inpatient E&M: 73153 Init Hosp L3
--- OUTSIDE RECORDS SUMMARY | 2023-12-23 10:26 | XMS RPT_ITS | CCD ---
Author Name Unknown Address [address] [place] [address] Organization [facility] Care Team Providers Care Quality Assurance Group Leader Name Role Phone Adrienne Durham PA-C Unavailable Abigail PINTO, Vic Scott Unavailable [phone] Joelle Stern MD Unavailable Ronaldo GALLON, YOLANDA Unavailable Unavailable Unavailable Unavailable Mirella PINTO, Damion Madrid Unavailable Mario NAVAS, Rosalino Unavailable Unavailable Rosaline Long MA Unavailable Unavailable Joelle Stern MD Unavailable [phone] Slakg GALLON, Tonja Unavailable Unavailable Adryan HOWE, Devorah Unavailable Unavailable Joelle Stern MD Primary Care Provider Sophie GALLON, Cass Unavailable Unavailable Irina HOWE, Kayela Unavailable Unavailable KEE LAL Unavailable Joelle Stern MD Attending Unavailable Joelle Stern MD Referring Unavailable Joelle Stern MD Consulting Unavailable Joelle Stern MD Primary Care Provider [phone] Angeli Vidal MA Unavailable Unavailable Allergies Allergy Classification Reported Allergen(s) Allergy Type Date of Onset Reaction(s) Facility (4 sources) Iodine Strong drug allergy 7 IVP dye [facility] Work Phone: (20 sources) Iodinated [...] 0 days Refills: 0 Ordered: 28-Jul-2021 Attila HORSE SHOW MANAGERPippa Start : 04-Jun-2013 End : 28-Jul-2021 Inactive [...] Visit Report Procedure Note: See Note; NOTES: [facility] [address] [place] [address] OFFICE VISIT Date of Service: 09/07/23 MR#: [id number] Acct: [id number] Name: BERNY IFNANTEMOND Rep #: [id number] : 1940 Provider: Dr. 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 Cardiac Catheterization 12/17/2021: PROCEDURE(S) PERFORMED DC02-(63264)[facility] CLINICAL PROFILE AND INDICATIONS Indications: Suspected [...] this. 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 [place] [address] OFFICE VISIT Date of Service: 03/27/23 MR#: [id number] Acct: [id number] Name: BERNY INFANTE Rep #: [id number] : 1940 Provider: Dr. 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 [place] [address] OFFICE VISIT Date of Service: 03/23/23 MR#: [id number] Acct: [id number] Name: BERNY INFANTE Rep #: [id number] : 1940 Provider: Dr. 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 [place] [address] Pacemaker Check Date of Service: 02/23/23 1528 MR#: [id number] Acct: [id number] Name: BERNY INFANTE Rep #: [id number] : 1940 From: Elda Segal Age/Sex: 83/M Location[place] [facility] Status: Signed Billing Codes PM Device Codes: [...] Pacemaker Check Procedure Note: See Note; NOTES: [facility] [address] [place], [place] [address] Pacemaker Check Date of Service: 01/19/23 1717 MR#: [id number] Acct: [id number] Name: BERNY INFANTE Rep #: [id number] : 1940 From: Elda Segal Age/Sex: 82/M Location: [facility] Status: Signed Billing Codes PM Device Codes: [...] Pacemaker Check Procedure Note: See Note; NOTES: [facility] [address] [place], [place] [address] Pacemaker Check Date of Service: 01/10/23 174 MR#: [id number] Acct: [id number] Name: BERNY INFANTE Rep #: [id number] : 1940 From: Elda Segal Age/Sex: 82/M Location: [facility] Status: Signed Billing Codes PM Device Codes: [...] / Explant Procedure Note: See Note; NOTES: [facility] Imaging Services [address] [place] [address] TXT:Device Implant / Explant MR#: [id number] Acct: [id number] Name: BERNY INFANTE Rep #: [id number] : 1940 82 From: Damion Vu MD PCP: Dr. Joelle Stern MD Status:[facility] Patient: BERNY INFANTE Study Date: 01/09/2023 Performing: Damion Vu MD : 1940 Age: 82 Gender: male PROCEDURES PERFORMED LP03-(34524)INITIAL PACER INSERT+VENTRICULAR LEAD INDICATIONS Sinoatrial node dysfunction/Sick [...] DEVICES IMPLANTED DEVICE(S): PPM Ventricular lead - Finish Photographer: [employer], Model # 7842 , Serial # [id number] PPM Atrial lead - Finish Photographer: [employer], Model # 7841 , Serial # [id number] PPM Generator - Finish Photographer: [employer], Model # L111 , Serial # [id number] DEVICE PARAMETERS ATRIAL LEAD PARAMETERS: P wave- [...] Date Dictated: 01/09/23 1425 Date Transcribed: 01/09/238 Director Of Integrated Marketing: [place] Signed Joelle Stern MD Work Phone: Start: 12-29-2022 End: 01-04-2023 12 Lead EKG performed by [facility] Procedure Note: See Note; NOTES: [address] [address] 12 Lead EKG performed by [facility] 12/29/22 1133 MR#: [id number] Acct: [id number] Name: BERNY INFANTE Rep #: [id number] : 1940 82 From: Damion Vu MD Attending Dr: Dr. Damion Vu MD Status: DEP A MB Ordering Dr: Damion Vu MD Date: 12/29/22 Location: [facility] Sex: M C Admitted: [facility]/12 Lead EKG performed by [facility] Sinus Rhythm -First degree A-V block Darrion = 254-Left bundle branch block. Anteroseptal infarct -age undetermined. ABNORMAL 12/29/22 1552 <Electronically signed by Damion Vu MD> Date Damion Vu MD CC: Dr. Joelle Stern MD Date Dictated: 12/29/221132 Date Transcribed: 12/29/221132 Director Of Integrated Marketing: [place] Signed Damion Vu MD Work Phone: Start: 12-29-2022 End: 12-29-2022 Cardiology Visit Report Procedure Note: See Note; NOTES: [facility] [address] [place] [address] OFFICE VISIT Date of Service: 12/29/22 MR#: [id number] Acct: [id number] Name: BERNY INFANTE Rep #: [id number] : 1940 Provider: Dr. 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 Cardiac Catheterization 12/17/2021: PROCEDURE(S) PERFORMED DC02-(71819)[facility] CLINICAL PROFILE AND INDICATIONS Indications: Suspected CAD [...] Orders: Orders 12 Lead EKG performed by [facility] Today G47.33 - Obstructive sleep apnea (adult) (pediatric), I44.7 - Left bundle-branch block, unspecified, I48.92 - Unspecified atrial flutter, I50.20 - Unspecified systolic (congestive) heart failure, I51.7 - Cardiomegaly, I51.9 - Heart disease, unspecified Basic Metabolic Profile (BMP) Today I48.92 - Unspecified atrial flutter CBC W/Diff, Automated Today I42.8 - Other cardiomyopathies Plan Details Follow Up: 3 Months (MANAGER FINANCIAL SERVICES) Coding Level of Care Code Off vis,est,level [...] Department Summary Procedure Note: See Note; NOTES: [facility] Records Department [address] [place] [address] Emergency Department Summary 12/14/22 MR#: [id number] Acct: [id number] Name: BERNY INFANTE Rep #: [id number] : 1940 82 From: Binh Rodas MD [...] He presents around 2200 in the evening. [facility] Medical History (Updated 12/14/22 @ 23:29 by [...] of this. I discussed with Cardiology Dr. Rodriguez, he agrees with admitting the patient for [...] 84.9 H Lymph % (Auto) 12.4 L [place] % (Auto) 2.1 Eos % (Auto) 0.0 [...] renal excretion Disposition Disposition: Acute Care Hospital [facility] What to do if you have Problems For any increased pain, shortness of breath, bleeding, nausea or vomiting, chest pain, or any unexpected problems, contact your Primary Care Provider. Call [facility] ([phone]) or report to the closest Emergency Room. Call 911 if necessary. 12/14/22 8200 <Electronically signed by Binh Rodas MD> Cosigner Signature (if applicable): CC: Dr. Joelle Stern MD Signed Joelle Stenr MD Work Phone: Start: 10-21-2022 End: 10-24-2022 Echo, Limited Study Procedure Note: See Note; NOTES: [facility] [address] [place] [address] Echo, Limited Study 10/21/22 1410 MR#: [id number] Acct: [id number] Name: UNRULYMILENABERNYMOND Rep #: [id number] : 1940 82 From: Damion Vu MD Attending Dr: GHAZALA AugusteC Status: REG CLI Ordering Dr: Gal Bryant NP [employer] Date: 10/21/22 Location: [facility] Sex: M C Admitted: Reason For [...] Date Dictated: 10/21/22 1410 Date Transcribed: 10/24/221226 Director Of Integrated Marketing: Signed Joelle Stern MD Work Phone: Start: 09-23-2022 End: 09-23-2022 Spine Lumbar (Routine) Procedure Note: See Note; NOTES: [facility] Imaging Services [address] [place] [address] Spine Lumbar (Routine) MR#: [id number] Acct: [id number] Name: BERNY INFANTE Rep #: [id number] : 1940 M 82 From: Alvino Rodgers MD PCP: Dr. Joelle Stern MD Status: REG CLI Study: Spine Lumbar (Routine) Date of Exam: 09/23/22 Exam# [id number] Ordering Dr: Joelle Stern MD STUDY: MRI [...] 14:01 EDT Reading Location ID and State: [facility] [place] , Service support , CC: Dr. Joelle Stern MD Director Of Integrated Marketing: Signed Jeolle Stern MD Work Phone: Start: 08-10-2022 End: 08-10-2022 Pulmonary Visit Report Procedure Note: See Note; NOTES: [facility] of [address] [place] [address] OFFICE VISIT Date of Service: 08/10/22 MR#: [id number] Acct: [id number] Name: BERNY INFANTE Rep #: [id number] : 1940 Provider: MAURICIO Hurtado Age/Sex: 82/M Location: [facility] Status: Signed Assessment and Plan Assessment and [...] Kaminski. 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 is (MANAGER FINANCIAL SERVICES) Coding Level of Care Code Off vis,est,level 3 Diagnoses Non-ischemic cardiomyopathy I42.8 Left bundle branch block (LBBB) I44.7 Hyperlipidemia E78.5 Coding Level of Care Code Off vis,est,level 3 Diagnoses Non-ischemic cardiomyopathy I42.8 Left bundle branch block (LBBB) I44.7 Hyperlipidemia E78.5 07/27/22 1107 <Electronically signed by Gal Bryant NP [employer]> Date Gal Bryant NP [employer] Cosigner Signature: Date (if applicable) CC: MD Joelle Segura MD Work Phone: Start: 05-02-2022 End: 05-02-2022 Pulmonary Visit Report Comments: See Note; NOTES: [facility] [place] [address] [place] [address] OFFICE VISIT Date of Service: 05/02/22 MR#: [id number] Acct: [id number] Name: BERNY INFANTE Rep #: [id number] : 1940 Provider: Dr. 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 [address] Echo Complete 04/12/22 1011 MR#: [id number] Acct: [id number] Name: BERNY INFANTE Rep #: [id number] : 1940 82 From: Damion Vu MD Attending Dr: Masha Glaser [employer]C Status: [facility] Ordering Dr: Masha Glaser NP [employer] Date: 04/12/22 Location: [facility] Sex: M C Admitted: Reason For [...] Dictated: 04/12/22 1011 Date Transcribed: 04/12/22 1230 Director Of Integrated Marketing: Signed Joelle Stern MD Work Phone: Start: 04-04-2022 End: 04-04-2022 Cardiology Visit Report Comments: See Note; NOTES: [facility] [address] [place] [address]. 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 4.0 [place] catheter. Right Coronary Artery selective angiography was then performed in multiple views using a 5 Fr. 4.0 [place] catheter. LV to AO pullback pressures were [...] cardiomyopathy: Status: Chronic Plan - Gal Bryant [employer], [employer]-C: Patient's echocardiogram on 12/13/2021 showed ejection fraction [...] (LBBB): Status: Acute Plan - Gal Bryant [employer], [employer]-C: He will continue current medical therapy, which includes Coreg 3.125 mg p.o. twice daily. (3) Hyperlipidemia: Status: Chronic Plan - Gal Bryant NP, [employer]-C: This is being monitored by primary care [...] prior to saving. Follow Up: 3-4 Months ([employer]BER/PA) Keep as is (MANAGER FINANCIAL SERVICES) Coding Level of Care Code Off vis,est,level 3 Diagnoses Non-ischemic cardiomyopathy I42.8 Left bundle branch block (LBBB) I44.7 Hyperlipidemia E78.5 Coding Level of Care Code Off vis,est,level 3 Diagnoses Non-ischemic cardiomyopathy I42.8 Left bundle branch block (LBBB) I44.7 Hyperlipidemia E78.5 04/04/22 0925 <Electronically signed by Gal Bryant NP [employer]> Date Gal Bryant NP [employer] Cosigner Signature: Date (if applicable) CC: Dr. MD Joelle Arango MD Work Phone: Start: 02-18-2022 End: 02-18-2022 PT D/C Summary (1) Comments: See Note; NOTES: [facility] [address] [place] [address] / REHABILITATION SERVICES DISCHARGE SUMMARY MR#: [id number] Acct: [id number] Name: BERNY INFANTE Rep #: [id number] : 1940 81 From: Ryley Mccoy DPT, OCS, CSCS Referring Dr.: Dr. Joelle Stern MD Status: REG RCR [facility] SEE NOTE SELF PAY INSURANCE It has [...] please feel free to call me at [phone]. Thank you for the referral of this patient. Sincerely, Ryley Mccoy, DPT, OCS, CSCS Balance/Gait/Functional tests - Balance/Special Test Scores Functional Gait Assessment Score: 27 % Disability: 10.0000 Oswestry Low Back Score: 16 <Electronically signed by Ryley Mccoy DPT, OCS, CSCS> 02/18/22 0920 CC: Dr. Joelle Stern MD EBG Signed Joelle Stern MD Work Phone: Start: 02-11-2022 End: 02-11-2022 Pulmonary Visit Report Comments: See Note; NOTES: [facility] of [address] [place] [address] OFFICE VISIT Date of Service: 02/11/22 MR#: [id number] Acct: [id number] Name: BERNY INFANTE Rep #: [id number] : 1940 Provider: MAURICIO Hurtado Age/Sex: 81/M Location: [facility] Status: Signed Assessment and Plan Assessment and Plan (1) Obstructive sleep apnea: Status: Acute Orders: Orders: Self Mgmnt Educ Training Today Plan - Shantal Hurtado [employer], [employer]-C: Deteriorated. There has been some concern that [...] Status: Acute Plan - Shantal Hurtado NP, [employer]-C: Complicates exam, plan, care and prognosis. Plan [...] since then. 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 Never been prescribed an inhaler. He was [...] (Updated 02/11/22 @ 13:47 by Shantal Hurtado [employer], [employer]-C) Depression History of hay fever Left bundle [...] 1554 <Electronically signed by Shantal Hurtado NP [employer]> Date Shantal Hurtado NP [employer] Cosigner Signature: Date (if applicable) CC: MD Joelle Segura MD Work Phone: Start: 01-28-2022 End: 01-28-2022 Inital Evaluation (1) - PT Comments: See Note; NOTES: [facility] [address] [place] [address]. [address] [place] [address] / REHABILITATION SERVICES INITIAL EVALUATION MR#: [id number] Acct: [id number] Name: BERNY INFANTE Rep #: [id number] : 1940 81 From: Ryley Mccoy DPT, OCS, CSCS Referring Dr.: Dr. Joelle Stern MD Status: REG [facility] Insurance: [facility] SEE NOTE SELF PAY INSURANCE Patient's Visit [...] vitamins. Then was told he had a IN at some point. Back pain persists, takes [...] to be FAXED BACK to us at [phone] for Medicare purposes. For Medicare only, by [...] Cardiology Visit Report Comments: See Note; NOTES: [facility] [address] [place] [address] OFFICE VISIT Date of Service: 01/03/22 MR#: [id number] Acct: [id number] Name: BERNY INFANTE Rep #: [id number] : 1940 Provider: MAURICIO sanders Age/Sex: 81/M Location: [facility] Status: Signed HPI HPI History of Present [...] DAILY #90 tab 01/03/22 [Rx Confirmed 01/03/22] [facility] Medical History Depression History of hay fever Left bundle branch block (LBBB) Left ventricular diastolic dysfunction LVH (left ventricular hypertrophy) Non-ischemic cardiomyopathy Obstructive sleep apnea Prostate cancer Surgical History (Reviewed 01/03/22 @ 15:02 by Masha Glaser [employer], [employer]-C) History of left heart catheterization (12/17/21) History of prostate surgery History of total bilateral knee replacement Hx of appendectomy Social History (Reviewed 01/03/22 @ 15:02 by Masha Glaser [employer], [employer]-C) Smoking Status: Never smoker alcohol intake: current [...] Supplemental Information Cardiac Catheterization 12/17/2021: PROCEDURE(S) PERFORMED DC02-(44391)[facility] CLINICAL PROFILE AND INDICATIONS Indications: Suspected CAD [...] multiple views using a 5 Fr. 4.0 [place] catheter. Right Coronary Artery selective angiography was then performed in multiple views using a 5 Fr. 4.0 [place] catheter. LV to AO pullback pressures were [...] to to reevaluate his ejection fraction. An ICD/FINANCIAL ASSOCIATE-D was discussed with patient, if ejection fraction [...] prior to saving. Follow Up: 3 Months ([employer]BER/PA) 12 Months (MANAGER FINANCIAL SERVICES) Coding Level of Care Code Off vis,est,level 4 Diagnoses Non-ischemic cardiomyopathy I42.8 Left bundle branch block (LBBB) I44.7 Hyperlipidemia E78.5 Coding Level of Care Code Off vis,est,level 4 Diagnoses Non-ischemic cardiomyopathy I42.8 Left bundle branch block (LBBB) I44.7 Hyperlipidemia E78.5 01/03/22 1608 <Electronically signed by Masha Glaser NP [employer]> Date Masha Glaser NP [employer] 01/16/22 1555<Electronically signed by Damion Vu MD> Cosigner Signature: Date (if applicable) Damion Vu MD CC: MD Joelle Segura MD Work Phone: Start: 12-16-2021 End: 12-16-2021 Cardiology Visit Report Comments: See Note; NOTES: [facility] [address] [place] [address] [address] [place] [address] OFFICE VISIT Date of Service: 12/16/21 MR#: [id number] Acct: [id number] Name: BERNY INFANTE Rep #: [id number] : 1940 Provider: Dr. Damion Vu MD Age/Sex: 81/M Location: [facility] Status: Signed HPI HPI History of Present [...] 12/16/21] Ejection fraction %: 35 to 39 [facility] Medical History Depression History of hay fever [...] I42.8, R06.00, R53.83 Follow Up: 2 Months (jewelry facer) Coding Level of Care Code Off vis,new,level [...] 12-13-2021 Echo Complete Comments: See Note; NOTES: [facility] [address] [place] [address] Echo Complete 12/13/21 1000 MR#: [id number] Acct: [id number] Name: BERNY INFANTE Rep #: [id number] : 1940 81 From: Damion Vu MD Attending Dr: Dr. Joelle Stern MD Status: REG CLI Ordering Dr: Joelle Stern MD Date: 12/13/21 Location: [facility] Sex: M C Admitted: Reason For [...] Dictated: 12/13/21 1000 Date Transcribed: 12/13/21 1423 Director Of Integrated Marketing: Signed Joelle Stern MD Work Phone: Start: 10-11-2021 End: 10-12-2021 Emergency Department Summary Comments: See Note; NOTES: [facility] Medical Records Department [address] [place] [address] Emergency Department Summary 10/11/21 MR#: [id number] Acct: [id number] Name: BERNY INFANTE Rep #: [id number] : 1940 81 From: Ryley Morales DO [...] emergency department for management of his pain. [facility] Medical History (Updated 10/11/21 @ 23:44 by [...] your Primary Care Provider. Call [facility] ([phone]) or report to the closest Emergency Room. Call 911 if necessary. 10/12/21 0003 <Electronically signed by Ryley Morales DO> Cosigner Signature (if applicable): CC: Dr. Joelle Stern MD Signed Joelle Stern MD Work Phone: Start: 10-04-2021 End: 10-04-2021 PT D/C Summary (1) Comments: See Note; NOTES: [facility] [address] [place] [address] [address] [place] [address] / REHABILITATION SERVICES DISCHARGE SUMMARY MR#: [id number] Acct: [id number] Name: BERNY INFANTE Rep #: [id number] : 1940 81 From: Ryley Mccoy DPT, OCS, CSCS Referring Dr.: Dr. Joelle Stern MD Status: REG R Insurance: [facility] SELF PAY INSURANCE It has been my [...] floor himself the other day. 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 it will wear me out. [...] please feel free to call me at [phone]. Thank you for the referral of this [...] 09-15-2021 Stress Report Comments: See Note; NOTES: [facility] [address] [place] [id number] MR#: [id number] Acct: [id number] Name: BERNY INFANTE Rep #: [id number] : 1940 81 From: Damion Vu MD [...] MD Date Dictated: 09/13/211753 Date Transcribed: 09/13/211753 Director Of Integrated Marketing: [place] Signed Joelle Stern MD Work Phone: Start: 09-03-2021 End: 09-15-2021 Inital Evaluation (1) - PT Comments: See Note; NOTES: [facility] [address] [place] [address] / REHABILITATION SERVICES INITIAL EVALUATION MR#: [id number] Acct: [id number] Name: BERNY INFANTE Rep #: [id number] : 1940 81 From: Ryley Mccoy DPT, OCS, CSCS Referring Dr.: Dr. Joelle Stern MD Status: REG RCR Insurance: [employer] [facility] SELF PAY INSURANCE Patient's Visit Information BERNY [...] skinnier. Wants to be able to fly [employer] and would not feel comfortable doing that [...] to be FAXED BACK to us at [phone] for Medicare purposes. For Medicare only, by signing this I certify the plan of care. Please let me know if there are questions or concerns regarding this plan of care. Physician Signature: ___Date: <Electronically signed by Ryley Mccoy DPT, OCS, CSCS> 09/03/21 [id number] CC: Dr. Joelle Stern MD EBG Signed Joelle Stern MD Work Phone: Start: 11-20-2006 End: 11-20-2006 Arthrp kne condyle&platu medial&lat compartments YOLANDA Higgins LPN Plan of Treatment Date Care Activity Detail Author Start: 01-12-2024 DIABETES SCREEN DIABETES SCREEN [facility] Start: 09-15-2023 Sedimentation rate rbc non-automated Sed Rate Erythrocyte (72772) [facility] Work Phone: Start: 09-15-2023 C-reactive protein C-Reactive Protein (09260) [facility] Work Phone: Start: 09-15-2023 Procedure Education Eprescribed prescriptions (G8553) [facility] Work Phone: Start: 08-08-2023 Procedure Education Eprescribed prescriptions (G8553) [facility]; [facility] Work Phone: Start: 08-08-2023 25 hydroxy includes fractions if performed CALCIFIDIOL (09731) VIT D 25 [facility]; [facility] Work Phone: Start: 07-21-2023 Influenza vaccination INFLUENZA (Season Ended) [facility] Start: 05-02-2023 Basic metabolic panel calcium total Metabolic Panel, Basic (30011) [facility]; [facility] Work Phone: Immunizations Immunization Date Immunization Notes Care Provider Fa lucero 08-07-2023 influenza, injectabl e, quadrivalent, preservative free Joelle Stern MD Work Phone: [facility] Work Phone: Payers Date Payer Category Payer Medicare [id number] 2011 Medicare [employer]NA MEDICARE A ETNA MEDICARE PPO [id number] 2011-Present [phone] [address] [place] [address] O [id number] 2011 Medicare [employer] MEDICARE A ETNA MEDICARE PPO [id number] 2011-Present [phone] [address] [place] [address] PPO [id number] 1940 Unknown [id number] Medicare [id number] Unknown [employer] Life Ins/Medicare Social History Date [...] Outside medical records received- uploaded in the [employer] drive. Appointment on 06/13/2023 Anne-Marie Espinosa documented in this encounter [facility] documented as of this encounter (statuses as of 05/09/2022) [facility]03-06-2014 History of Past illness Narrative* Problem Noted [...] up with Dr Sandro MATIAS will be [employer], he had gotten previous machine from that company. documented as of this encounter (statuses as of 03/22/2023) [facility] Tachycardia- Primary Tachycardia, unspecified [facility] Name Dates Details Patient Instructions Indication:Low back pain with left-sided sciatica Start:13-Oct-2021 Instruction Type:Provider Instructions for Treatment How to Access Health Informa tion Online using Patient Portal and [employer] Apps Indication:Low back pain with left-sided sciatica Start:13-Oct-2021 Instruction Type:Patient Education Patient Instructions Indication:Annual Medicare Physical WITH abnormal findings (Renamed from Encounter for general adult medical examination with abnormal findings) Start:30-Aug-2021 Instruction Type:Provider Instructions for Treatment How to Access Health Informa tion Online using Patient Portal and [employer] Apps Indication:Annual Medicare Physical WITH abnormal findings [...] Informa tion Online using Patient Portal and [employer] Apps Indication:Low back pain with left-sided sciatica Start:13-Oct-2021 Instruction Type:Patient Education Patient Instructions Indication:Annual Medicare Physical WITH abnormal findings (Renamed from Encounter for general adult medical examination with abnormal findings) Start:30-Aug-2021 Instruction Type:Provider Instructions for Treatment How to Access Health Informa tion Online using Patient Portal and [employer] Apps Indication:Annual Medicare Physical WITH abnormal findings [...] [facility]; [facility] Work Phone: [facility]* Name Dates Details Patient Instructions Indication:Low back pain with left-sided sciatica Start:13-Oct-2021 Instruction Type:Provider Instructions for Treatment How to Access Health Informa tion Online using Patient [employer] Indication:Low back pain with left-sided sciatica Start:13-Oct-2021 Instruction Type:Patient Education Patient Instructions Indication:Annual Medicare Physical WITH abnormal findings (Renamed from Encounter for general adult medical examination with abnormal findings) Start:30-Aug-2021 Instruction Type:Provider Instructions for Treatment How to Access Health Informa tion Online using Patient Portal and [employer] Apps Indication:Annual Medicare Physical WITH abnormal findings [...] Access Health Informa tion Online using Patient [employer] Apps Indication:MIKY (obstructive sleep apnea) Start:14-Dec-2021 Instruction Type:Patient Education Patient Instructions Indication:Low back pain with left-sided sciatica Start:13-Oct-2021 Instruction Type:Provider Instructions for Treatment How to Access Health Informa tion Online using Patient Portal and [employer] Apps Indication:Low back pain with left-sided sciatica Start:13-Oct-2021 Instruction Type:Patient Education Patient Instructions Indication:Annual Medicare Physical WITH abnormal findings (Renamed from Encounter for general adult medical examination with abnormal findings) Start:30-Aug-2021 Instruction Type:Provider Instructions for Treatment How to Access Health Informa tion Online using Patient Portal and [employer] Apps Indication:Annual Medicare Physical WITH abnormal findings [...] Informa tion Online using Patient Portal and [employer] Apps Indication:MIKY (obstructive sleep apnea) Start:14-Dec-2021 Instruction Type:Patient Education Patient Instructions Indication:Low back pain with left-sided sciatica Start:13-Oct-2021 Instruction Type:Provider Instructions for Treatment How to Access Health Informa tion Online using Patient Portal and [employer] Apps Indication:Low back pain with left-sided sciatica Start:13-Oct-2021 Instruction Type:Patient Education Patient Instructions Indication:Annual Medicare Physical WITH abnormal findings (Renamed from Encounter for general adult medical examination with abnormal findings) Start:30-Aug-2021 Instruction Type:Provider Instructions for Treatment How to Access Health Informa tion Online using Patient Portal and [employer] Apps Indication:Annual Medicare Physical WITH abnormal findings [...] Informa tion Online using Patient Portal and [employer] Apps Indication:MIKY (obstructive sleep apnea) Start:14-Dec-2021 Instruction Type:Patient Education Patient Instructions Indication:Low back pain with left-sided sciatica Start:13-Oct-2021 Instruction Type:Provider Instructions for Treatment How to Access Health Informa tion Online using Patient Portal and [employer] Apps Indication:Low back pain with left-sided sciatica Start:13-Oct-2021 Instruction Type:Patient Education Patient Instructions Indication:Annual Medicare Physical WITH abnormal findings (Renamed from Encounter for general adult medical examination with abnormal findings) Start:30-Aug-2021 Instruction Type:Provider Instructions for Treatment How to Access Health Informa tion Online using Patient Portal and [employer] Apps Indication:Annual Medicare Physical WITH abnormal findings [...] Informa tion Online using Patient Portal and [employer] Apps Indication:MIKY (obstructive sleep apnea) Start:14-Dec-2021 Instruction Type:Patient Education Patient Instructions Indication:Low back pain with left-sided sciatica Start:13-Oct-2021 Instruction Type:Provider Instructions for Treatment How to Access Health Informa tion Online using Patient Portal and [employer] Apps Indication:Low back pain with left-sided sciatica Start:13-Oct-2021 Instruction Type:Patient Education Patient Instructions Indication:Annual Medicare Physical WITH abnormal findings (Renamed from Encounter for general adult medical examination with abnormal findings) Start:30-Aug-2021 Instruction Type:Provider Instructions for Treatment How to Access Health Informa tion Online using Patient Portal and [employer] Apps Indication:Annual Medicare Physical WITH abnormal findings [...] Informa tion Online using Patient Portal and [employer] Apps Indication:MIKY (obstructive sleep apnea) Start:14-Dec-2021 Instruction Type:Patient Education Patient Instructions Indication:Low back pain with left-sided sciatica Start:13-Oct-2021 Instruction Type:Provider Instructions for Treatment How to Access Health Informa tion Online using Patient Portal and [employer] Indication:Low back pain with left-sided sciatica Start:13-Oct-2021 Instruction Type:Patient Education Patient Instructions Indication:Annual Medicare Physical WITH abnormal findings (Renamed from Encounter for general adult medical examination with abnormal findings) Start:30-Aug-2021 Instruction Type:Provider Instructions for Treatment How to Access Health Informa tion Online using Patient Portal and [employer] Indication:Annual Medicare Physical WITH abnormal findings (Renamed [...] Informa tion Online using Patient Portal and [employer] Apps Indication:MIKY (obstructive sleep apnea) Start:14-Dec-2021 Instruction Type:Patient Education Patient Instructions Indication:Low back pain with left-sided sciatica Start:13-Oct-2021 Instruction Type:Provider Instructions for Treatment How to Access Health Informa tion Online using Patient Portal and [employer] Apps Indication:Low back pain with left-sided sciatica Start:13-Oct-2021 Instruction Type:Patient Education Patient Instructions Indication:Annual Medicare Physical WITH abnormal findings (Renamed from Encounter for general adult medical examination with abnormal findings) Start:30-Aug-2021 Instruction Type:Provider Instructions for Treatment How to Access Health Informa tion Online using Patient Portal and [employer] Indication:Annual Medicare Physical WITH abnormal findings (Renamed [...] Informa tion Online using Patient Portal and [employer] Apps Indication:MIKY (obstructive sleep apnea) Start:14-Dec-2021 Instruction Type:Patient Education Patient Instructions Indication:Low back pain with left-sided sciatica Start:13-Oct-2021 Instruction Type:Provider Instructions for Treatment How to Access Health Informa tion Online using Patient Portal and [employer] Apps Indication:Low back pain with left-sided sciatica Start:13-Oct-2021 Instruction Type:Patient Education Patient Instructions Indication:Annual Medicare Physical WITH abnormal findings (Renamed from Encounter for general adult medical examination with abnormal findings) Start:30-Aug-2021 Instruction Type:Provider Instructions for Treatment How to Access Health Informa tion Online using Patient Portal and [employer] Apps Indication:Annual Medicare Physical WITH abnormal findings [...] Informa tion Online using Patient Portal and [employer] Apps Indication:BMI 28.0-28.9,adult Start:25-Jan-2022 Instruction Type:Patient Education Patient Instructions Indication:MIKY (obstructive sleep apnea) Start:14-Dec-2021 Instruction Type:Provider Instructions for Treatment How to Access Health Informa tion Online using Patient Portal and [employer] Apps Indication:MIKY (obstructive sleep apnea) Start:14-Dec-2021 Instruction Type:Patient Education Patient Instructions Indication:Low back pain with left-sided sciatica Start:13-Oct-2021 Instruction Type:Provider Instructions for Treatment How to Access Health Informa tion Online using Patient Portal and [employer] Apps Indication:Low back pain with left-sided sciatica Start:13-Oct-2021 Instruction Type:Patient Education Patient Instructions Indication:Annual Medicare Physical WITH abnormal findings (Renamed from Encounter for general adult medical examination with abnormal findings) Start:30-Aug-2021 Instruction Type:Provider Instructions for Treatment How to Access Health Informa tion Online using Patient Portal and [employer] Apps Indication:Annual Medicare Physical WITH abnormal findings [...] tion Online using Patient Portal and [employer] Apps Indication:Former smoker Start:22-Mar-2022 Instruction Type:Patient Education Patient Instructions Indication:BMI 28.0-28.9,adult Start:25-Jan-2022 Instruction Type:Provider Instructions for Treatment How to Access Health Informa tion Online using Patient Portal and [employer] Apps Indication:BMI 28.0-28.9,adult Start:25-Jan-2022 Instruction Type:Patient Education Patient Instructions Indication:MIKY (obstructive sleep apnea) Start:14-Dec-2021 Instruction Type:Provider Instructions for Treatment How to Access Health Informa tion Online using Patient Portal and [employer] Apps Indication:MIKY (obstructive sleep apnea) Start:14-Dec-2021 Instruction Type:Patient Education Patient Instructions Indication:Low back pain with left-sided sciatica Start:13-Oct-2021 Instruction Type:Provider Instructions for Treatment How to Access Health Informa tion Online using Patient Portal and [employer] Apps Indication:Low back pain with left-sided sciatica Start:13-Oct-2021 Instruction Type:Patient Education Patient Instructions Indication:Annual Medicare Physical WITH abnormal findings (Renamed from Encounter for general adult medical examination with abnormal findings) Start:30-Aug-2021 Instruction Type:Provider Instructions for Treatment How to Access Health Informa tion Online using Patient Portal and [employer] Apps Indication:Annual Medicare Physical WITH abnormal findings [...] tion Online using Patient Portal and [employer] Apps Indication:Former smoker Start:22-Mar-2022 Instruction Type:Patient Education Patient Instructions Indication:BMI 28.0-28.9,adult Start:25-Jan-2022 Instruction Type:Provider Instructions for Treatment How to Access Health Informa tion Online using Patient Portal and [employer] Apps Indication:BMI 28.0-28.9,adult Start:25-Jan-2022 Instruction Type:Patient Education Patient Instructions Indication:MIKY (obstructive sleep apnea) Start:14-Dec-2021 Instruction Type:Provider Instructions for Treatment How to Access Health Informa tion Online using Patient Portal and [employer] Apps Indication:MIKY (obstructive sleep apnea) Start:14-Dec-2021 Instruction Type:Patient Education Patient Instructions Indication:Low back pain with left-sided sciatica Start:13-Oct-2021 Instruction Type:Provider Instructions for Treatment How to Access Health Informa tion Online using Patient Portal and [employer] Apps Indication:Low back pain with left-sided sciatica Start:13-Oct-2021 Instruction Type:Patient Education Patient Instructions Indication:Annual Medicare Physical WITH abnormal findings (Renamed from Encounter for general adult medical examination with abnormal findings) Start:30-Aug-2021 Instruction Type:Provider Instructions for Treatment How to Access Health Informa tion Online using Patient Portal and [employer] Apps Indication:Annual Medicare Physical WITH abnormal findings [...] tion Online using Patient Portal and [employer] Apps Indication:Former smoker Start:22-Mar-2022 Instruction Type:Patient Education Patient Instructions Indication:BMI 28.0-28.9,adult Start:25-Jan-2022 Instruction Type:Provider Instructions for Treatment How to Access Health Informa tion Online using Patient Portal and [employer] Apps Indication:BMI 28.0-28.9,adult Start:25-Jan-2022 Instruction Type:Patient Education Patient Instructions Indication:MIKY (obstructive sleep apnea) Start:14-Dec-2021 Instruction Type:Provider Instructions for Treatment How to Access Health Informa tion Online using Patient Portal and [employer] Apps Indication:MIKY (obstructive sleep apnea) Start:14-Dec-2021 Instruction Type:Patient Education Patient Instructions Indication:Low back pain with left-sided sciatica Start:13-Oct-2021 Instruction Type:Provider Instructions for Treatment How to Access Health Informa tion Online using Patient Portal and [employer] Apps Indication:Low back pain with left-sided sciatica Start:13-Oct-2021 Instruction Type:Patient Education Patient Instructions Indication:Annual Medicare Physical WITH abnormal findings (Renamed from Encounter for general adult medical examination with abnormal findings) Start:30-Aug-2021 Instruction Type:Provider Instructions for Treatment How to Access Health Informa tion Online using Patient Portal and [employer] Apps Indication:Annual Medicare Physical WITH abnormal findings [...] Informa tion Online using Patient Portal and [employer] Apps Indication:Former smoker Start:22-Mar-2022 Instruction Type:Patient Education Patient Instructions Indication:BMI 28.0-28.9,adult Start:25-Jan-2022 Instruction Type:Provider Instructions for Treatment How to Access Health Informa tion Online using Patient Portal and [employer] Apps Indication:BMI 28.0-28.9,adult Start:25-Jan-2022 Instruction Type:Patient Education Patient Instructions Indication:MIKY (obstructive sleep apnea) Start:14-Dec-2021 Instruction Type:Provider Instructions for Treatment How to Access Health Informa tion Online using Patient Portal and [employer] Apps Indication:MIKY (obstructive sleep apnea) Start:14-Dec-2021 Instruction Type:Patient Education Patient Instructions Indication:Low back pain with left-sided sciatica Start:13-Oct-2021 Instruction Type:Provider Instructions for Treatment How to Access Health Informa tion Online using Patient Portal and [employer] Apps Indication:Low back pain with left-sided sciatica Start:13-Oct-2021 Instruction Type:Patient Education Patient Instructions Indication:Annual Medicare Physical WITH abnormal findings (Renamed from Encounter for general adult medical examination with abnormal findings) Start:30-Aug-2021 Instruction Type:Provider Instructions for Treatment How to Access Health Informa tion Online using Patient Portal and [employer] Apps Indication:Annual Medicare Physical WITH abnormal findings [...] Informa tion Online using Patient Portal and [employer] Apps Indication:Former smoker Start:22-Mar-2022 Instruction Type:Patient Education Patient Instructions Indication:BMI 28.0-28.9,adult Start:25-Jan-2022 Instruction Type:Provider Instructions for Treatment How to Access Health Informa tion Online using Patient Portal and [employer] Apps Indication:BMI 28.0-28.9,adult Start:25-Jan-2022 Instruction Type:Patient Education Patient Instructions Indication:MIKY (obstructive sleep apnea) Start:14-Dec-2021 Instruction Type:Provider Instructions for Treatment How to Access Health Informa tion Online using Patient Portal and [employer] Apps Indication:MIKY (obstructive sleep apnea) Start:14-Dec-2021 Instruction Type:Patient Education Patient Instructions Indication:Low back pain with left-sided sciatica Start:13-Oct-2021 Instruction Type:Provider Instructions for Treatment How to Access Health Informa tion Online using Patient [employer] Indication:Low back pain with left-sided sciatica Start:13-Oct-2021 Instruction Type:Patient Education Patient Instructions Indication:Annual Medicare Physical WITH abnormal findings (Renamed from Encounter for general adult medical examination with abnormal findings) Start:30-Aug-2021 Instruction Type:Provider Instructions for Treatment How to Access Health Informa tion Online using Patient Portal and [employer] Apps Indication:Annual Medicare Physical WITH abnormal findings [...] Access Health Informa tion Online using Patient [employer] Indication:Orthostatic hypotension Start:22-Apr-2022 Instruction Type:Patient Education Patient Instructions Indication:Former smoker Start:22-Mar-2022 Instruction Type:Provider Instructions for Treatment How to Access Health Informa tion Online using Patient [employer] Indication:Former smoker Start:22-Mar-2022 Instruction Type:Patient Education Patient Instructions Indication:BMI 28.0-28.9,adult Start:25-Jan-2022 Instruction Type:Provider Instructions for Treatment How to Access Health Informa tion Online using Patient [employer] Apps Indication:BMI 28.0-28.9,adult Start:25-Jan-2022 Instruction Type:Patient Education Patient Instructions Indication:MIKY (obstructive sleep apnea) Start:14-Dec-2021 Instruction Type:Provider Instructions for Treatment How to Access Health Informa tion Online using Patient [employer] Apps Indication:MIKY (obstructive sleep apnea) Start:14-Dec-2021 Instruction Type:Patient Education Patient Instructions Indication:Low back pain with left-sided sciatica Start:13-Oct-2021 Instruction Type:Provider Instructions for Treatment How to Access Health Informa tion Online using Patient Portal and [employer] Apps Indication:Low back pain with left-sided sciatica Start:13-Oct-2021 Instruction Type:Patient Education Patient Instructions Indication:Annual Medicare Physical WITH abnormal findings (Renamed from Encounter for general adult medical examination with abnormal findings) Start:30-Aug-2021 Instruction Type:Provider Instructions for Treatment How to Access Health Informa tion Online using Patient Portal and [employer] Apps Indication:Annual Medicare Physical WITH abnormal findings [...] Informa tion Online using Patient Portal and [employer] Apps Indication:BMI 25.0-25.9,adult Start:25-Apr-2022 Instruction Type:Patient Education Patient Instructions Indication:Orthostatic hypotension Start:22-Apr-2022 Instruction Type:Provider Instructions for Treatment How to Access Health Informa tion Online using Patient Portal and [employer] Apps Indication:Orthostatic hypotension Start:22-Apr-2022 Instruction Type:Patient Education Patient Instructions Indication:Former smoker Start:22-Mar-2022 Instruction Type:Provider Instructions for Treatment How to Access Health Informa tion Online using Patient Portal and [employer] Apps Indication:Former smoker Start:22-Mar-2022 Instruction Type:Patient Education Patient Instructions Indication:BMI 28.0-28.9,adult Start:25-Jan-2022 Instruction Type:Provider Instructions for Treatment How to Access Health Informa tion Online using Patient Portal and [employer] Apps Indication:BMI 28.0-28.9,adult Start:25-Jan-2022 Instruction Type:Patient Education Patient Instructions Indication:MIKY (obstructive sleep apnea) Start:14-Dec-2021 Instruction Type:Provider Instructions for Treatment How to Access Health Informa tion Online using Patient Portal and [employer] Apps Indication:MIKY (obstructive sleep apnea) Start:14-Dec-2021 Instruction Type:Patient Education Patient Instructions Indication:Low back pain with left-sided sciatica Start:13-Oct-2021 Instruction Type:Provider Instructions for Treatment How to Access Health Informa tion Online using Patient Portal and [employer] Apps Indication:Low back pain with left-sided sciatica Start:13-Oct-2021 Instruction Type:Patient Education Patient Instructions Indication:Annual Medicare Physical WITH abnormal findings (Renamed from Encounter for general adult medical examination with abnormal findings) Start:30-Aug-2021 Instruction Type:Provider Instructions for Treatment How to Access Health Informa tion Online using Patient Portal and [employer] Apps Indication:Annual Medicare Physical WITH abnormal findings [...] Informa tion Online using Patient Portal and [employer] Apps Indication:BMI 25.0-25.9,adult Start:25-Apr-2022 Instruction Type:Patient Education Patient Instructions Indication:Orthostatic hypotension Start:22-Apr-2022 Instruction Type:Provider Instructions for Treatment How to Access Health Informa tion Online using Patient Portal and [employer] Apps Indication:Orthostatic hypotension Start:22-Apr-2022 Instruction Type:Patient Education Patient Instructions Indication:Former smoker Start:22-Mar-2022 Instruction Type:Provider Instructions for Treatment How to Access Health Informa tion Online using Patient Portal and [employer] Apps Indication:Former smoker Start:22-Mar-2022 Instruction Type:Patient Education Patient Instructions Indication:BMI 28.0-28.9,adult Start:25-Jan-2022 Instruction Type:Provider Instructions for Treatment How to Access Health Informa tion Online using Patient Portal and [employer] Apps Indication:BMI 28.0-28.9,adult Start:25-Jan-2022 Instruction Type:Patient Education Patient Instructions Indication:MIKY (obstructive sleep apnea) Start:14-Dec-2021 Instruction Type:Provider Instructions for Treatment How to Access Health Informa tion Online using Patient Portal and [employer] Apps Indication:MIKY (obstructive sleep apnea) Start:14-Dec-2021 Instruction Type:Patient Education Patient Instructions Indication:Low back pain with left-sided sciatica Start:13-Oct-2021 Instruction Type:Provider Instructions for Treatment How to Access Health Informa tion Online using Patient Portal and [employer] Apps Indication:Low back pain with left-sided sciatica Start:13-Oct-2021 Instruction Type:Patient Education Patient Instructions Indication:Annual Medicare Physical WITH abnormal findings (Renamed from Encounter for general adult medical examination with abnormal findings) Start:30-Aug-2021 Instruction Type:Provider Instructions for Treatment How to Access Health Informa tion Online using Patient Portal and [employer] Apps Indication:Annual Medicare Physical WITH abnormal findings [...] tion Online using Patient Portal and [employer] Apps Indication:BMI 25.0-25.9,adult Start:25-Apr-2022 Instruction Type:Patient Education Patient Instructions Indication:Orthostatic hypotension Start:22-Apr-2022 Instruction Type:Provider Instructions for Treatment How to Access Health Informa tion Online using Patient Portal and [employer] Apps Indication:Orthostatic hypotension Start:22-Apr-2022 Instruction Type:Patient Education Patient Instructions Indication:Former smoker Start:22-Mar-2022 Instruction Type:Provider Instructions for Treatment How to Access Health Informa tion Online using Patient Portal and [employer] Apps Indication:Former smoker Start:22-Mar-2022 Instruction Type:Patient Education Patient Instructions Indication:BMI 28.0-28.9,adult Start:25-Jan-2022 Instruction Type:Provider Instructions for Treatment How to Access Health Informa tion Online using Patient Portal and [employer] Apps Indication:BMI 28.0-28.9,adult Start:25-Jan-2022 Instruction Type:Patient Education Patient Instructions Indication:MIKY (obstructive sleep apnea) Start:14-Dec-2021 Instruction Type:Provider Instructions for Treatment How to Access Health Informa tion Online using Patient Portal and [employer] Apps Indication:MIKY (obstructive sleep apnea) Start:14-Dec-2021 Instruction Type:Patient Education Patient Instructions Indication:Low back pain with left-sided sciatica Start:13-Oct-2021 Instruction Type:Provider Instructions for Treatment How to Access Health Informa tion Online using Patient Portal and [employer] Apps Indication:Low back pain with left-sided sciatica Start:13-Oct-2021 Instruction Type:Patient Education Patient Instructions Indication:Annual Medicare Physical WITH abnormal findings (Renamed from Encounter for general adult medical examination with abnormal findings) Start:30-Aug-2021 Instruction Type:Provider Instructions for Treatment How to Access Health Informa tion Online using Patient Portal and [employer] Apps Indication:Annual Medicare Physical WITH abnormal findings [...] Informa tion Online using Patient Portal and [employer] Apps Indication:Umbilical hernia Start:26-May-2022 Instruction Type:Patient Education Patient Instructions Indication:BMI 25.0-25.9,adult Start:25-Apr-2022 Instruction Type:Provider Instructions for Treatment How to Access Health Informa tion Online using Patient Portal and [employer] Apps Indication:BMI 25.0-25.9,adult Start:25-Apr-2022 Instruction Type:Patient Education Patient Instructions Indication:Orthostatic hypotension Start:22-Apr-2022 Instruction Type:Provider Instructions for Treatment How to Access Health Informa tion Online using Patient Portal and [employer] Apps Indication:Orthostatic hypotension Start:22-Apr-2022 Instruction Type:Patient Education Patient Instructions Indication:Former smoker Start:22-Mar-2022 Instruction Type:Provider Instructions for Treatment How to Access Health Informa tion Online using Patient Portal and [employer] Apps Indication:Former smoker Start:22-Mar-2022 Instruction Type:Patient Education Patient Instructions Indication:BMI 28.0-28.9,adult Start:25-Jan-2022 Instruction Type:Provider Instructions for Treatment How to Access Health Informa tion Online using Patient Portal and [employer] Apps Indication:BMI 28.0-28.9,adult Start:25-Jan-2022 Instruction Type:Patient Education Patient Instructions Indication:MIKY (obstructive sleep apnea) Start:14-Dec-2021 Instruction Type:Provider Instructions for Treatment How to Access Health Informa tion Online using Patient Portal and [employer] Apps Indication:MIKY (obstructive sleep apnea) Start:14-Dec-2021 Instruction Type:Patient Education Patient Instructions Indication:Low back pain with left-sided sciatica Start:13-Oct-2021 Instruction Type:Provider Instructions for Treatment How to Access Health Informa tion Online using Patient Portal and [employer] Apps Indication:Low back pain with left-sided sciatica Start:13-Oct-2021 Instruction Type:Patient Education Patient Instructions Indication:Annual Medicare Physical WITH abnormal findings (Renamed from Encounter for general adult medical examination with abnormal findings) Start:30-Aug-2021 Instruction Type:Provider Instructions for Treatment How to Access Health Informa tion Online using Patient Portal and [employer] Apps Indication:Annual Medicare Physical WITH abnormal findings [...] tion Online using Patient Portal and [employer] Apps Indication:Former smoker Start:02-Jun-2022 Instruction Type:Patient Education Patient Instructions Indication:Umbilical hernia Start:26-May-2022 Instruction Type:Provider Instructions for Treatment How to Access Health Informa tion Online using Patient Portal and [employer] Apps Indication:Umbilical hernia Start:26-May-2022 Instruction Type:Patient Education Patient Instructions Indication:BMI 25.0-25.9,adult Start:25-Apr-2022 Instruction Type:Provider Instructions for Treatment How to Access Health Informa tion Online using Patient Portal and [employer] Indication:BMI 25.0-25.9,adult Start:25-Apr-2022 Instruction Type:Patient Education Patient Instructions Indication:Orthostatic hypotension Start:22-Apr-2022 Instruction Type:Provider Instructions for Treatment How to Access Health Informa tion Online using Patient Portal and [employer] Apps Indication:Orthostatic hypotension Start:22-Apr-2022 Instruction Type:Patient Education Patient Instructions Indication:Former smoker Start:22-Mar-2022 Instruction Type:Provider Instructions for Treatment How to Access Health Informa tion Online using Patient Portal and [employer] Indication:Former smoker Start:22-Mar-2022 Instruction Type:Patient Education Patient Instructions Indication:BMI 28.0-28.9,adult Start:25-Jan-2022 Instruction Type:Provider Instructions for Treatment How to Access Health Informa tion Online using Patient Portal and [employer] Apps Indication:BMI 28.0-28.9,adult Start:25-Jan-2022 Instruction Type:Patient Education Patient Instructions Indication:MIKY (obstructive sleep apnea) Start:14-Dec-2021 Instruction Type:Provider Instructions for Treatment How to Access Health Informa tion Online using Patient Portal and [employer] Indication:MIKY (obstructive sleep apnea) Start:14-Dec-2021 Instruction Type:Patient Education Patient Instructions Indication:Low back pain with left-sided sciatica Start:13-Oct-2021 Instruction Type:Provider Instructions for Treatment How to Access Health Informa tion Online using Patient Portal and [employer] Apps Indication:Low back pain with left-sided sciatica Start:13-Oct-2021 Instruction Type:Patient Education Patient Instructions Indication:Annual Medicare Physical WITH abnormal findings (Renamed from Encounter for general adult medical examination with abnormal findings) Start:30-Aug-2021 Instruction Type:Provider Instructions for Treatment How to Access Health Informa tion Online using Patient Portal and [employer] Apps Indication:Annual Medicare Physical WITH abnormal findings [...] Informa tion Online using Patient Portal and [employer] Apps Indication:Former smoker Start:23-Jun-2022 Instruction Type:Patient Education Patient Instructions Indication:Former smoker Start:02-Jun-2022 Instruction Type:Provider Instructions for Treatment How to Access Health Informa tion Online using Patient Portal and [employer] Indication:Former smoker Start:02-Jun-2022 Instruction Type:Patient Education Patient Instructions Indication:Umbilical hernia Start:26-May-2022 Instruction Type:Provider Instructions for Treatment How to Access Health Informa tion Online using Patient Portal and [employer] Apps Indication:Umbilical hernia Start:26-May-2022 Instruction Type:Patient Education Patient Instructions Indication:BMI 25.0-25.9,adult Start:25-Apr-2022 Instruction Type:Provider Instructions for Treatment How to Access Health Informa tion Online using Patient Portal and [employer] Indication:BMI 25.0-25.9,adult Start:25-Apr-2022 Instruction Type:Patient Education Patient Instructions Indication:Orthostatic hypotension Start:22-Apr-2022 Instruction Type:Provider Instructions for Treatment How to Access Health Informa tion Online using Patient Portal and [employer] Apps Indication:Orthostatic hypotension Start:22-Apr-2022 Instruction Type:Patient Education Patient Instructions Indication:Former smoker Start:22-Mar-2022 Instruction Type:Provider Instructions for Treatment How to Access Health Informa tion Online using Patient Portal and [employer] Indication:Former smoker Start:22-Mar-2022 Instruction Type:Patient Education Patient Instructions Indication:BMI 28.0-28.9,adult Start:25-Jan-2022 Instruction Type:Provider Instructions for Treatment How to Access Health Informa tion Online using Patient Portal and [employer] Indication:BMI 28.0-28.9,adult Start:25-Jan-2022 Instruction Type:Patient Education Patient Instructions Indication:MIKY (obstructive sleep apnea) Start:14-Dec-2021 Instruction Type:Provider Instructions for Treatment How to Access Health Informa tion Online using Patient Portal and [employer] Apps Indication:MIKY (obstructive sleep apnea) Start:14-Dec-2021 Instruction Type:Patient Education Patient Instructions Indication:Low back pain with left-sided sciatica Start:13-Oct-2021 Instruction Type:Provider Instructions for Treatment How to Access Health Informa tion Online using Patient Portal and [employer] Indication:Low back pain with left-sided sciatica Start:13-Oct-2021 Instruction Type:Patient Education Patient Instructions Indication:Annual Medicare Physical WITH abnormal findings (Renamed from Encounter for general adult medical examination with abnormal findings) Start:30-Aug-2021 Instruction Type:Provider Instructions for Treatment How to Access Health Informa tion Online using Patient Portal and [employer] Apps Indication:Annual Medicare Physical WITH abnormal findings [...] tion Online using Patient Portal and [employer] Apps Indication:Former smoker Start:23-Jun-2022 Instruction Type:Patient Education Patient Instructions Indication:Former smoker Start:02-Jun-2022 Instruction Type:Provider Instructions for Treatment How to Access Health Informa tion Online using Patient Portal and [employer] Indication:Former smoker Start:02-Jun-2022 Instruction Type:Patient Education Patient Instructions Indication:Umbilical hernia Start:26-May-2022 Instruction Type:Provider Instructions for Treatment How to Access Health Informa tion Online using Patient Portal and [employer] Apps Indication:Umbilical hernia Start:26-May-2022 Instruction Type:Patient Education Patient Instructions Indication:BMI 25.0-25.9,adult Start:25-Apr-2022 Instruction Type:Provider Instructions for Treatment How to Access Health Informa tion Online using Patient Portal and [employer] Indication:BMI 25.0-25.9,adult Start:25-Apr-2022 Instruction Type:Patient Education Patient Instructions Indication:Orthostatic hypotension Start:22-Apr-2022 Instruction Type:Provider Instructions for Treatment How to Access Health Informa tion Online using Patient Portal and [employer] Indication:Orthostatic hypotension Start:22-Apr-2022 Instruction Type:Patient Education Patient Instructions Indication:Former smoker Start:22-Mar-2022 Instruction Type:Provider Instructions for Treatment How to Access Health Informa tion Online using Patient Portal and [employer] Indication:Former smoker Start:22-Mar-2022 Instruction Type:Patient Education Patient Instructions Indication:BMI 28.0-28.9,adult Start:25-Jan-2022 Instruction Type:Provider Instructions for Treatment How to Access Health Informa tion Online using Patient Portal and [employer] Indication:BMI 28.0-28.9,adult Start:25-Jan-2022 Instruction Type:Patient Education Patient Instructions Indication:MIKY (obstructive sleep apnea) Start:14-Dec-2021 Instruction Type:Provider Instructions for Treatment How to Access Health Informa tion Online using Patient Portal and [employer] Indication:MIKY (obstructive sleep apnea) Start:14-Dec-2021 Instruction Type:Patient Education Patient Instructions Indication:Low back pain with left-sided sciatica Start:13-Oct-2021 Instruction Type:Provider Instructions for Treatment How to Access Health Informa tion Online using Patient Portal and [employer] Apps Indication:Low back pain with left-sided sciatica Start:13-Oct-2021 Instruction Type:Patient Education Patient Instructions Indication:Annual Medicare Physical WITH abnormal findings (Renamed from Encounter for general adult medical examination with abnormal findings) Start:30-Aug-2021 Instruction Type:Provider Instructions for Treatment How to Access Health Informa tion Online using Patient Portal and [employer] Apps Indication:Annual Medicare Physical WITH abnormal findings [...] Informa tion Online using Patient Portal and [employer] Apps Indication:Former smoker Start:23-Jun-2022 Instruction Type:Patient Education Patient Instructions Indication:Former smoker Start:02-Jun-2022 Instruction Type:Provider Instructions for Treatment How to Access Health Informa tion Online using Patient Portal and [employer] Apps Indication:Former smoker Start:02-Jun-2022 Instruction Type:Patient Education Patient Instructions Indication:Umbilical hernia Start:26-May-2022 Instruction Type:Provider Instructions for Treatment How to Access Health Informa tion Online using Patient Portal and [employer] Apps Indication:Umbilical hernia Start:26-May-2022 Instruction Type:Patient Education Patient Instructions Indication:BMI 25.0-25.9,adult Start:25-Apr-2022 Instruction Type:Provider Instructions for Treatment How to Access Health Informa tion Online using Patient Portal and [employer] Apps Indication:BMI 25.0-25.9,adult Start:25-Apr-2022 Instruction Type:Patient Education Patient Instructions Indication:Orthostatic hypotension Start:22-Apr-2022 Instruction Type:Provider Instructions for Treatment How to Access Health Informa tion Online using Patient Portal and [employer] Apps Indication:Orthostatic hypotension Start:22-Apr-2022 Instruction Type:Patient Education Patient Instructions Indication:Former smoker Start:22-Mar-2022 Instruction Type:Provider Instructions for Treatment How to Access Health Informa tion Online using Patient Portal and [employer] Apps Indication:Former smoker Start:22-Mar-2022 Instruction Type:Patient Education Patient Instructions Indication:BMI 28.0-28.9,adult Start:25-Jan-2022 Instruction Type:Provider Instructions for Treatment How to Access Health Informa tion Online using Patient Portal and [employer] Apps Indication:BMI 28.0-28.9,adult Start:25-Jan-2022 Instruction Type:Patient Education Patient Instructions Indication:MIKY (obstructive sleep apnea) Start:14-Dec-2021 Instruction Type:Provider Instructions for Treatment How to Access Health Informa tion Online using Patient Portal and [employer] Apps Indication:MIKY (obstructive sleep apnea) Start:14-Dec-2021 Instruction Type:Patient Education Patient Instructions Indication:Low back pain with left-sided sciatica Start:13-Oct-2021 Instruction Type:Provider Instructions for Treatment How to Access Health Informa tion Online using Patient Portal and [employer] Apps Indication:Low back pain with left-sided sciatica Start:13-Oct-2021 Instruction Type:Patient Education Patient Instructions Indication:Annual Medicare Physical WITH abnormal findings (Renamed from Encounter for general adult medical examination with abnormal findings) Start:30-Aug-2021 Instruction Type:Provider Instructions for Treatment How to Access Health Informa tion Online using Patient Portal and [employer] Apps Indication:Annual Medicare Physical WITH abnormal findings [...] tion Online using Patient Portal and [employer] Apps Indication:Former smoker Start:23-Jun-2022 Instruction Type:Patient Education Patient Instructions Indication:Former smoker Start:02-Jun-2022 Instruction Type:Provider Instructions for Treatment How to Access Health Informa tion Online using Patient Portal and [employer] Indication:Former smoker Start:02-Jun-2022 Instruction Type:Patient Education Patient Instructions Indication:Umbilical hernia Start:26-May-2022 Instruction Type:Provider Instructions for Treatment How to Access Health Informa tion Online using Patient Portal and [employer] Indication:Umbilical hernia Start:26-May-2022 Instruction Type:Patient Education Patient Instructions Indication:BMI 25.0-25.9,adult Start:25-Apr-2022 Instruction Type:Provider Instructions for Treatment How to Access Health Informa tion Online using Patient Portal and [employer] Indication:BMI 25.0-25.9,adult Start:25-Apr-2022 Instruction Type:Patient Education Patient Instructions Indication:Orthostatic hypotension Start:22-Apr-2022 Instruction Type:Provider Instructions for Treatment How to Access Health Informa tion Online using Patient Portal and [employer] Indication:Orthostatic hypotension Start:22-Apr-2022 Instruction Type:Patient Education Patient Instructions Indication:Former smoker Start:22-Mar-2022 Instruction Type:Provider Instructions for Treatment How to Access Health Informa tion Online using Patient Portal and [employer] Indication:Former smoker Start:22-Mar-2022 Instruction Type:Patient Education Patient Instructions Indication:BMI 28.0-28.9,adult Start:25-Jan-2022 Instruction Type:Provider Instructions for Treatment How to Access Health Informa tion Online using Patient Portal and [employer] Indication:BMI 28.0-28.9,adult Start:25-Jan-2022 Instruction Type:Patient Education Patient Instructions Indication:MIKY (obstructive sleep apnea) Start:14-Dec-2021 Instruction Type:Provider Instructions for Treatment How to Access Health Informa tion Online using Patient Portal and [employer] Indication:MIKY (obstructive sleep apnea) Start:14-Dec-2021 Instruction Type:Patient Education Patient Instructions Indication:Low back pain with left-sided sciatica Start:13-Oct-2021 Instruction Type:Provider Instructions for Treatment How to Access Health Informa tion Online using Patient Portal and [employer] Indication:Low back pain with left-sided sciatica Start:13-Oct-2021 Instruction Type:Patient Education Patient Instructions Indication:Annual Medicare Physical WITH abnormal findings (Renamed from Encounter for general adult medical examination with abnormal findings) Start:30-Aug-2021 Instruction Type:Provider Instructions for Treatment How to Access Health Informa tion Online using Patient Portal and [employer] Apps Indication:Annual Medicare Physical WITH abnormal findings [...] tion Online using Patient Portal and [employer] Indication:Former smoker Start:23-Jun-2022 Instruction Type:Patient Education Patient Instructions Indication:Former smoker Start:02-Jun-2022 Instruction Type:Provider Instructions for Treatment How to Access Health Informa tion Online using Patient Portal and [employer] Apps Indication:Former smoker Start:02-Jun-2022 Instruction Type:Patient Education Patient Instructions Indication:Umbilical hernia Start:26-May-2022 Instruction Type:Provider Instructions for Treatment How to Access Health Informa tion Online using Patient Portal and [employer] Indication:Umbilical hernia Start:26-May-2022 Instruction Type:Patient Education Patient Instructions Indication:BMI 25.0-25.9,adult Start:25-Apr-2022 Instruction Type:Provider Instructions for Treatment How to Access Health Informa tion Online using Patient Portal and [employer] Indication:BMI 25.0-25.9,adult Start:25-Apr-2022 Instruction Type:Patient Education Patient Instructions Indication:Orthostatic hypotension Start:22-Apr-2022 Instruction Type:Provider Instructions for Treatment How to Access Health Informa tion Online using Patient Portal and [employer] Indication:Orthostatic hypotension Start:22-Apr-2022 Instruction Type:Patient Education Patient Instructions Indication:Former smoker Start:22-Mar-2022 Instruction Type:Provider Instructions for Treatment How to Access Health Informa tion Online using Patient Portal and [employer] Indication:Former smoker Start:22-Mar-2022 Instruction Type:Patient Education Patient Instructions Indication:BMI 28.0-28.9,adult Start:25-Jan-2022 Instruction Type:Provider Instructions for Treatment How to Access Health Informa tion Online using Patient Portal and [employer] Apps Indication:BMI 28.0-28.9,adult Start:25-Jan-2022 Instruction Type:Patient Education Patient Instructions Indication:MIKY (obstructive sleep apnea) Start:14-Dec-2021 Instruction Type:Provider Instructions for Treatment How to Access Health Informa tion Online using Patient Portal and [employer] Apps Indication:MIKY (obstructive sleep apnea) Start:14-Dec-2021 Instruction Type:Patient Education Patient Instructions Indication:Low back pain with left-sided sciatica Start:13-Oct-2021 Instruction Type:Provider Instructions for Treatment How to Access Health Informa tion Online using Patient Portal and [employer] Apps Indication:Low back pain with left-sided sciatica Start:13-Oct-2021 Instruction Type:Patient Education Patient Instructions Indication:Annual Medicare Physical WITH abnormal findings (Renamed from Encounter for general adult medical examination with abnormal findings) Start:30-Aug-2021 Instruction Type:Provider Instructions for Treatment How to Access Health Informa tion Online using Patient Portal and [employer] Apps Indication:Annual Medicare Physical WITH abnormal findings [...] tion Online using Patient Portal and [employer] Apps Indication:Former smoker Start:23-Jun-2022 Instruction Type:Patient Education Patient Instructions Indication:Former smoker Start:02-Jun-2022 Instruction Type:Provider Instructions for Treatment How to Access Health Informa tion Online using Patient Portal and [employer] Apps Indication:Former smoker Start:02-Jun-2022 Instruction Type:Patient Education Patient Instructions Indication:Umbilical hernia Start:26-May-2022 Instruction Type:Provider Instructions for Treatment How to Access Health Informa tion Online using Patient Portal and [employer] Apps Indication:Umbilical hernia Start:26-May-2022 Instruction Type:Patient Education Patient Instructions Indication:BMI 25.0-25.9,adult Start:25-Apr-2022 Instruction Type:Provider Instructions for Treatment How to Access Health Informa tion Online using Patient Portal and [employer] Indication:BMI 25.0-25.9,adult Start:25-Apr-2022 Instruction Type:Patient Education Patient Instructions Indication:Orthostatic hypotension Start:22-Apr-2022 Instruction Type:Provider Instructions for Treatment How to Access Health Informa tion Online using Patient Portal and [employer] Apps Indication:Orthostatic hypotension Start:22-Apr-2022 Instruction Type:Patient Education Patient Instructions Indication:Former smoker Start:22-Mar-2022 Instruction Type:Provider Instructions for Treatment How to Access Health Informa tion Online using Patient Portal and [employer] Apps Indication:Former smoker Start:22-Mar-2022 Instruction Type:Patient Education Patient Instructions Indication:BMI 28.0-28.9,adult Start:25-Jan-2022 Instruction Type:Provider Instructions for Treatment How to Access Health Informa tion Online using Patient Portal and [employer] Indication:BMI 28.0-28.9,adult Start:25-Jan-2022 Instruction Type:Patient Education Patient Instructions Indication:MIKY (obstructive sleep apnea) Start:14-Dec-2021 Instruction Type:Provider Instructions for Treatment How to Access Health Informa tion Online using Patient Portal and [employer] Apps Indication:MIKY (obstructive sleep apnea) Start:14-Dec-2021 Instruction Type:Patient Education Patient Instructions Indication:Low back pain with left-sided sciatica Start:13-Oct-2021 Instruction Type:Provider Instructions for Treatment How to Access Health Informa tion Online using Patient Portal and [employer] Apps Indication:Low back pain with left-sided sciatica Start:13-Oct-2021 Instruction Type:Patient Education Patient Instructions Indication:Annual Medicare Physical WITH abnormal findings (Renamed from Encounter for general adult medical examination with abnormal findings) Start:30-Aug-2021 Instruction Type:Provider Instructions for Treatment How to Access Health Informa tion Online using Patient Portal and [employer] Apps Indication:Annual Medicare Physical WITH abnormal findings [...] Informa tion Online using Patient Portal and [employer] Apps Indication:Former smoker Start:23-Jun-2022 Instruction Type:Patient Education Patient Instructions Indication:Former smoker Start:02-Jun-2022 Instruction Type:Provider Instructions for Treatment How to Access Health Informa tion Online using Patient Portal and [employer] Apps Indication:Former smoker Start:02-Jun-2022 Instruction Type:Patient Education Patient Instructions Indication:Umbilical hernia Start:26-May-2022 Instruction Type:Provider Instructions for Treatment How to Access Health Informa tion Online using Patient Portal and [employer] Apps Indication:Umbilical hernia Start:26-May-2022 Instruction Type:Patient Education Patient Instructions Indication:BMI 25.0-25.9,adult Start:25-Apr-2022 Instruction Type:Provider Instructions for Treatment How to Access Health Informa tion Online using Patient Portal and [employer] Apps Indication:BMI 25.0-25.9,adult Start:25-Apr-2022 Instruction Type:Patient Education Patient Instructions Indication:Orthostatic hypotension Start:22-Apr-2022 Instruction Type:Provider Instructions for Treatment How to Access Health Informa tion Online using Patient Portal and [employer] Apps Indication:Orthostatic hypotension Start:22-Apr-2022 Instruction Type:Patient Education Patient Instructions Indication:Former smoker Start:22-Mar-2022 Instruction Type:Provider Instructions for Treatment How to Access Health Informa tion Online using Patient Portal and [employer] Apps Indication:Former smoker Start:22-Mar-2022 Instruction Type:Patient Education Patient Instructions Indication:BMI 28.0-28.9,adult Start:25-Jan-2022 Instruction Type:Provider Instructions for Treatment How to Access Health Informa tion Online using Patient Portal and [employer] Apps Indication:BMI 28.0-28.9,adult Start:25-Jan-2022 Instruction Type:Patient Education Patient Instructions Indication:MIKY (obstructive sleep apnea) Start:14-Dec-2021 Instruction Type:Provider Instructions for Treatment How to Access Health Informa tion Online using Patient Portal and [employer] Apps Indication:MIKY (obstructive sleep apnea) Start:14-Dec-2021 Instruction Type:Patient Education Patient Instructions Indication:Low back pain with left-sided sciatica Start:13-Oct-2021 Instruction Type:Provider Instructions for Treatment How to Access Health Informa tion Online using Patient Portal and [employer] Apps Indication:Low back pain with left-sided sciatica Start:13-Oct-2021 Instruction Type:Patient Education Patient Instructions Indication:Annual Medicare Physical WITH abnormal findings (Renamed from Encounter for general adult medical examination with abnormal findings) Start:30-Aug-2021 Instruction Type:Provider Instructions for Treatment How to Access Health Informa tion Online using Patient Portal and [employer] Indication:Annual Medicare Physical WITH abnormal findings (Renamed [...] Informa tion Online using Patient Portal and [employer] Apps Indication:BMI 25.0-25.9,adult Start:03-Oct-2022 Instruction Type:Patient Education Patient Instructions Indication:Former smoker Start:23-Jun-2022 Instruction Type:Provider Instructions for Treatment How to Access Health Informa tion Online using Patient Portal and [employer] Apps Indication:Former smoker Start:23-Jun-2022 Instruction Type:Patient Education Patient Instructions Indication:Former smoker Start:02-Jun-2022 Instruction Type:Provider Instructions for Treatment How to Access Health Informa tion Online using Patient Portal and [employer] Apps Indication:Former smoker Start:02-Jun-2022 Instruction Type:Patient Education Patient Instructions Indication:Umbilical hernia Start:26-May-2022 Instruction Type:Provider Instructions for Treatment How to Access Health Informa tion Online using Patient Portal and [employer] Apps Indication:Umbilical hernia Start:26-May-2022 Instruction Type:Patient Education Patient Instructions Indication:BMI 25.0-25.9,adult Start:25-Apr-2022 Instruction Type:Provider Instructions for Treatment How to Access Health Informa tion Online using Patient Portal and [employer] Apps Indication:BMI 25.0-25.9,adult Start:25-Apr-2022 Instruction Type:Patient Education Patient Instructions Indication:Orthostatic hypotension Start:22-Apr-2022 Instruction Type:Provider Instructions for Treatment How to Access Health Informa tion Online using Patient Portal and [employer] Apps Indication:Orthostatic hypotension Start:22-Apr-2022 Instruction Type:Patient Education Patient Instructions Indication:Former smoker Start:22-Mar-2022 Instruction Type:Provider Instructions for Treatment How to Access Health Informa tion Online using Patient Portal and [employer] Apps Indication:Former smoker Start:22-Mar-2022 Instruction Type:Patient Education Patient Instructions Indication:BMI 28.0-28.9,adult Start:25-Jan-2022 Instruction Type:Provider Instructions for Treatment How to Access Health Informa tion Online using Patient Portal and [employer] Indication:BMI 28.0-28.9,adult Start:25-Jan-2022 Instruction Type:Patient Education Patient Instructions Indication:MKIY (obstructive sleep apnea) Start:14-Dec-2021 Instruction Type:Provider Instructions for Treatment How to Access Health Informa tion Online using Patient Portal and [employer] Apps Indication:MIKY (obstructive sleep apnea) Start:14-Dec-2021 Instruction Type:Patient Education Patient Instructions Indication:Low back pain with left-sided sciatica Start:13-Oct-2021 Instruction Type:Provider Instructions for Treatment How to Access Health Informa tion Online using Patient Portal and [employer] Apps Indication:Low back pain with left-sided sciatica Start:13-Oct-2021 Instruction Type:Patient Education Patient Instructions Indication:Annual Medicare Physical WITH abnormal findings (Renamed from Encounter for general adult medical examination with abnormal findings) Start:30-Aug-2021 Instruction Type:Provider Instructions for Treatment How to Access Health Informa tion Online using Patient Portal and [employer] Apps Indication:Annual Medicare Physical WITH abnormal findings [...] tion Online using Patient Portal and [employer] Indication:BMI 25.0-25.9,adult Start:03-Oct-2022 Instruction Type:Patient Education Patient Instructions Indication:Former smoker Start:23-Jun-2022 Instruction Type:Provider Instructions for Treatment How to Access Health Informa tion Online using Patient Portal and [employer] Indication:Former smoker Start:23-Jun-2022 Instruction Type:Patient Education Patient Instructions Indication:Former smoker Start:02-Jun-2022 Instruction Type:Provider Instructions for Treatment How to Access Health Informa tion Online using Patient Portal and [employer] Apps Indication:Former smoker Start:02-Jun-2022 Instruction Type:Patient Education Patient Instructions Indication:Umbilical hernia Start:26-May-2022 Instruction Type:Provider Instructions for Treatment How to Access Health Informa tion Online using Patient Portal and [employer] Indication:Umbilical hernia Start:26-May-2022 Instruction Type:Patient Education Patient Instructions Indication:BMI 25.0-25.9,adult Start:25-Apr-2022 Instruction Type:Provider Instructions for Treatment How to Access Health Informa tion Online using Patient Portal and [employer] Indication:BMI 25.0-25.9,adult Start:25-Apr-2022 Instruction Type:Patient Education Patient Instructions Indication:Orthostatic hypotension Start:22-Apr-2022 Instruction Type:Provider Instructions for Treatment How to Access Health Informa tion Online using Patient Portal and [employer] Indication:Orthostatic hypotension Start:22-Apr-2022 Instruction Type:Patient Education Patient Instructions Indication:Former smoker Start:22-Mar-2022 Instruction Type:Provider Instructions for Treatment How to Access Health Informa tion Online using Patient Portal and [employer] Indication:Former smoker Start:22-Mar-2022 Instruction Type:Patient Education Patient Instructions Indication:BMI 28.0-28.9,adult Start:25-Jan-2022 Instruction Type:Provider Instructions for Treatment How to Access Health Informa tion Online using Patient Portal and [employer] Indication:BMI 28.0-28.9,adult Start:25-Jan-2022 Instruction Type:Patient Education Patient Instructions Indication:MIKY (obstructive sleep apnea) Start:14-Dec-2021 Instruction Type:Provider Instructions for Treatment How to Access Health Informa tion Online using Patient Portal and [employer] Indication:MIKY (obstructive sleep apnea) Start:14-Dec-2021 Instruction Type:Patient Education Patient Instructions Indication:Low back pain with left-sided sciatica Start:13-Oct-2021 Instruction Type:Provider Instructions for Treatment How to Access Health Informa tion Online using Patient Portal and [employer] Apps Indication:Low back pain with left-sided sciatica Start:13-Oct-2021 Instruction Type:Patient Education Patient Instructions Indication:Annual Medicare Physical WITH abnormal findings (Renamed from Encounter for general adult medical examination with abnormal findings) Start:30-Aug-2021 Instruction Type:Provider Instructions for Treatment How to Access Health Informa tion Online using Patient Portal and [employer] Indication:Annual Medicare Physical WITH abnormal findings [...] tion Online using Patient Portal and [employer] Indication:BMI 25.0-25.9,adult Start:03-Oct-2022 Instruction Type:Patient Education Patient Instructions Indication:Former smoker Start:23-Jun-2022 Instruction Type:Provider Instructions for Treatment How to Access Health Informa tion Online using Patient Portal and [employer] Indication:Former smoker Start:23-Jun-2022 Instruction Type:Patient Education Patient Instructions Indication:Former smoker Start:02-Jun-2022 Instruction Type:Provider Instructions for Treatment How to Access Health Informa tion Online using Patient Portal and [employer] Indication:Former smoker Start:02-Jun-2022 Instruction Type:Patient Education Patient Instructions Indication:Umbilical hernia Start:26-May-2022 Instruction Type:Provider Instructions for Treatment How to Access Health Informa tion Online using Patient Portal and [employer] Indication:Umbilical hernia Start:26-May-2022 Instruction Type:Patient Education Patient Instructions Indication:BMI 25.0-25.9,adult Start:25-Apr-2022 Instruction Type:Provider Instructions for Treatment How to Access Health Informa tion Online using Patient Portal and [employer] Indication:BMI 25.0-25.9,adult Start:25-Apr-2022 Instruction Type:Patient Education Patient Instructions Indication:Orthostatic hypotension Start:22-Apr-2022 Instruction Type:Provider Instructions for Treatment How to Access Health Informa tion Online using Patient Portal and [employer] Indication:Orthostatic hypotension Start:22-Apr-2022 Instruction Type:Patient Education Patient Instructions Indication:Former smoker Start:22-Mar-2022 Instruction Type:Provider Instructions for Treatment How to Access Health Informa tion Online using Patient Portal and [employer] Indication:Former smoker Start:22-Mar-2022 Instruction Type:Patient Education Patient Instructions Indication:BMI 28.0-28.9,adult Start:25-Jan-2022 Instruction Type:Provider Instructions for Treatment How to Access Health Informa tion Online using Patient Portal and [employer] Indication:BMI 28.0-28.9,adult Start:25-Jan-2022 Instruction Type:Patient Education Patient Instructions Indication:MIKY (obstructive sleep apnea) Start:14-Dec-2021 Instruction Type:Provider Instructions for Treatment How to Access Health Informa tion Online using Patient Portal and [employer] Indication:MIKY (obstructive sleep apnea) Start:14-Dec-2021 Instruction Type:Patient Education Patient Instructions Indication:Low back pain with left-sided sciatica Start:13-Oct-2021 Instruction Type:Provider Instructions for Treatment How to Access Health Informa tion Online using Patient Portal and [employer] Indication:Low back pain with left-sided sciatica Start:13-Oct-2021 Instruction Type:Patient Education Patient Instructions Indication:Annual Medicare Physical WITH abnormal findings (Renamed from Encounter for general adult medical examination with abnormal findings) Start:30-Aug-2021 Instruction Type:Provider Instructions for Treatment How to Access Health Informa tion Online using Patient Portal and [employer] Indication:Annual Medicare Physical WITH abnormal findings [...] tion Online using Patient Portal and [employer] Indication:BMI 25.0-25.9,adult Start:03-Oct-2022 Instruction Type:Patient Education Patient Instructions Indication:Former smoker Start:23-Jun-2022 Instruction Type:Provider Instructions for Treatment How to Access Health Informa tion Online using Patient Portal and [employer] Indication:Former smoker Start:23-Jun-2022 Instruction Type:Patient Education Patient Instructions Indication:Former smoker Start:02-Jun-2022 Instruction Type:Provider Instructions for Treatment How to Access Health Informa tion Online using Patient Portal and [employer] Indication:Former smoker Start:02-Jun-2022 Instruction Type:Patient Education Patient Instructions Indication:Umbilical hernia Start:26-May-2022 Instruction Type:Provider Instructions for Treatment How to Access Health Informa tion Online using Patient Portal and [employer] Indication:Umbilical hernia Start:26-May-2022 Instruction Type:Patient Education Patient Instructions Indication:BMI 25.0-25.9,adult Start:25-Apr-2022 Instruction Type:Provider Instructions for Treatment How to Access Health Informa tion Online using Patient Portal and [employer] Indication:BMI 25.0-25.9,adult Start:25-Apr-2022 Instruction Type:Patient Education Patient Instructions Indication:Orthostatic hypotension Start:22-Apr-2022 Instruction Type:Provider Instructions for Treatment How to Access Health Informa tion Online using Patient Portal and [employer] Indication:Orthostatic hypotension Start:22-Apr-2022 Instruction Type:Patient Education Patient Instructions Indication:Former smoker Start:22-Mar-2022 Instruction Type:Provider Instructions for Treatment How to Access Health Informa tion Online using Patient Portal and [employer] Indication:Former smoker Start:22-Mar-2022 Instruction Type:Patient Education Patient Instructions Indication:BMI 28.0-28.9,adult Start:25-Jan-2022 Instruction Type:Provider Instructions for Treatment How to Access Health Informa tion Online using Patient Portal and [employer] Indication:BMI 28.0-28.9,adult Start:25-Jan-2022 Instruction Type:Patient Education Patient Instructions Indication:MIKY (obstructive sleep apnea) Start:14-Dec-2021 Instruction Type:Provider Instructions for Treatment How to Access Health Informa tion Online using Patient Portal and [employer] Indication:MIKY (obstructive sleep apnea) Start:14-Dec-2021 Instruction Type:Patient Education Patient Instructions Indication:Low back pain with left-sided sciatica Start:13-Oct-2021 Instruction Type:Provider Instructions for Treatment How to Access Health Informa tion Online using Patient Portal and [employer] Indication:Low back pain with left-sided sciatica Start:13-Oct-2021 Instruction Type:Patient Education Patient Instructions Indication:Annual Medicare Physical WITH abnormal findings (Renamed from Encounter for general adult medical examination with abnormal findings) Start:30-Aug-2021 Instruction Type:Provider Instructions for Treatment How to Access Health Informa tion Online using Patient Portal and [employer] Indication:Annual Medicare Physical WITH abnormal findings [...] tion Online using Patient Portal and [employer] Indication:Former smoker Start:02-Jan-2023 Instruction Type:Patient Education Patient Instructions Indication:BMI 25.0-25.9,adult Start:03-Oct-2022 Instruction Type:Provider Instructions for Treatment How to Access Health Informa tion Online using Patient Portal and [employer] Indication:BMI 25.0-25.9,adult Start:03-Oct-2022 Instruction Type:Patient Education Patient Instructions Indication:Former smoker Start:23-Jun-2022 Instruction Type:Provider Instructions for Treatment How to Access Health Informa tion Online using Patient Portal and [employer] Indication:Former smoker Start:23-Jun-2022 Instruction Type:Patient Education Patient Instructions Indication:Former smoker Start:02-Jun-2022 Instruction Type:Provider Instructions for Treatment How to Access Health Informa tion Online using Patient Portal and [employer] Indication:Former smoker Start:02-Jun-2022 Instruction Type:Patient Education Patient Instructions Indication:Umbilical hernia Start:26-May-2022 Instruction Type:Provider Instructions for Treatment How to Access Health Informa tion Online using Patient Portal and [employer] Indication:Umbilical hernia Start:26-May-2022 Instruction Type:Patient Education Patient Instructions Indication:BMI 25.0-25.9,adult Start:25-Apr-2022 Instruction Type:Provider Instructions for Treatment How to Access Health Informa tion Online using Patient Portal and [employer] Indication:BMI 25.0-25.9,adult Start:25-Apr-2022 Instruction Type:Patient Education Patient Instructions Indication:Orthostatic hypotension Start:22-Apr-2022 Instruction Type:Provider Instructions for Treatment How to Access Health Informa tion Online using Patient Portal and [employer] Indication:Orthostatic hypotension Start:22-Apr-2022 Instruction Type:Patient Education Patient Instructions Indication:Former smoker Start:22-Mar-2022 Instruction Type:Provider Instructions for Treatment How to Access Health Informa tion Online using Patient Portal and [employer] Indication:Former smoker Start:22-Mar-2022 Instruction Type:Patient Education Patient Instructions Indication:BMI 28.0-28.9,adult Start:25-Jan-2022 Instruction Type:Provider Instructions for Treatment How to Access Health Informa tion Online using Patient Portal and [employer] Indication:BMI 28.0-28.9,adult Start:25-Jan-2022 Instruction Type:Patient Education Patient Instructions Indication:MIKY (obstructive sleep apnea) Start:14-Dec-2021 Instruction Type:Provider Instructions for Treatment How to Access Health Informa tion Online using Patient Portal and [employer] Indication:MIKY (obstructive sleep apnea) Start:14-Dec-2021 Instruction Type:Patient Education Patient Instructions Indication:Low back pain with left-sided sciatica Start:13-Oct-2021 Instruction Type:Provider Instructions for Treatment How to Access Health Informa tion Online using Patient Portal and [employer] Indication:Low back pain with left-sided sciatica Start:13-Oct-2021 Instruction Type:Patient Education Patient Instructions Indication:Annual Medicare Physical WITH abnormal findings (Renamed from Encounter for general adult medical examination with abnormal findings) Start:30-Aug-2021 Instruction Type:Provider Instructions for Treatment How to Access Health Informa tion Online using Patient Portal and [employer] Apps Indication:Annual Medicare Physical WITH abnormal findings [...] tion Online using Patient Portal and [employer] Apps Indication:Former smoker Start:02-Jan-2023 Instruction Type:Patient Education Patient Instructions Indication:BMI 25.0-25.9,adult Start:03-Oct-2022 Instruction Type:Provider Instructions for Treatment How to Access Health Informa tion Online using Patient Portal and [employer] Apps Indication:BMI 25.0-25.9,adult Start:03-Oct-2022 Instruction Type:Patient Education Patient Instructions Indication:Former smoker Start:23-Jun-2022 Instruction Type:Provider Instructions for Treatment How to Access Health Informa tion Online using Patient Portal and [employer] Apps Indication:Former smoker Start:23-Jun-2022 Instruction Type:Patient Education Patient Instructions Indication:Former smoker Start:02-Jun-2022 Instruction Type:Provider Instructions for Treatment How to Access Health Informa tion Online using Patient Portal and [employer] Apps Indication:Former smoker Start:02-Jun-2022 Instruction Type:Patient Education Patient Instructions Indication:Umbilical hernia Start:26-May-2022 Instruction Type:Provider Instructions for Treatment How to Access Health Informa tion Online using Patient Portal and [employer] Apps Indication:Umbilical hernia Start:26-May-2022 Instruction Type:Patient Education Patient Instructions Indication:BMI 25.0-25.9,adult Start:25-Apr-2022 Instruction Type:Provider Instructions for Treatment How to Access Health Informa tion Online using Patient Portal and [employer] Apps Indication:BMI 25.0-25.9,adult Start:25-Apr-2022 Instruction Type:Patient Education Patient Instructions Indication:Orthostatic hypotension Start:22-Apr-2022 Instruction Type:Provider Instructions for Treatment How to Access Health Informa tion Online using Patient Portal and [employer] Apps Indication:Orthostatic hypotension Start:22-Apr-2022 Instruction Type:Patient Education Patient Instructions Indication:Former smoker Start:22-Mar-2022 Instruction Type:Provider Instructions for Treatment How to Access Health Informa tion Online using Patient Portal and [employer] Apps Indication:Former smoker Start:22-Mar-2022 Instruction Type:Patient Education Patient Instructions Indication:BMI 28.0-28.9,adult Start:25-Jan-2022 Instruction Type:Provider Instructions for Treatment How to Access Health Informa tion Online using Patient Portal and [employer] Apps Indication:BMI 28.0-28.9,adult Start:25-Jan-2022 Instruction Type:Patient Education Patient Instructions Indication:MIKY (obstructive sleep apnea) Start:14-Dec-2021 Instruction Type:Provider Instructions for Treatment How to Access Health Informa tion Online using Patient Portal and [employer] Apps Indication:MIKY (obstructive sleep apnea) Start:14-Dec-2021 Instruction Type:Patient Education Patient Instructions Indication:Low back pain with left-sided sciatica Start:13-Oct-2021 Instruction Type:Provider Instructions for Treatment How to Access Health Informa tion Online using Patient Portal and [employer] Apps Indication:Low back pain with left-sided sciatica Start:13-Oct-2021 Instruction Type:Patient Education Patient Instructions Indication:Annual Medicare Physical WITH abnormal findings (Renamed from Encounter for general adult medical examination with abnormal findings) Start:30-Aug-2021 Instruction Type:Provider Instructions for Treatment How to Access Health Informa tion Online using Patient Portal and [employer] Apps Indication:Annual Medicare Physical WITH abnormal findings [...] Informa tion Online using Patient Portal and [employer] Apps Indication:Former smoker Start:02-Jan-2023 Instruction Type:Patient Education Patient Instructions Indication:BMI 25.0-25.9,adult Start:03-Oct-2022 Instruction Type:Provider Instructions for Treatment How to Access Health Informa tion Online using Patient Portal and [employer] Apps Indication:BMI 25.0-25.9,adult Start:03-Oct-2022 Instruction Type:Patient Education Patient Instructions Indication:Former smoker Start:23-Jun-2022 Instruction Type:Provider Instructions for Treatment How to Access Health Informa tion Online using Patient Portal and [employer] Apps Indication:Former smoker Start:23-Jun-2022 Instruction Type:Patient Education Patient Instructions Indication:Former smoker Start:02-Jun-2022 Instruction Type:Provider Instructions for Treatment How to Access Health Informa tion Online using Patient Portal and [employer] Apps Indication:Former smoker Start:02-Jun-2022 Instruction Type:Patient Education Patient Instructions Indication:Umbilical hernia Start:26-May-2022 Instruction Type:Provider Instructions for Treatment How to Access Health Informa tion Online using Patient Portal and [employer] Apps Indication:Umbilical hernia Start:26-May-2022 Instruction Type:Patient Education Patient Instructions Indication:BMI 25.0-25.9,adult Start:25-Apr-2022 Instruction Type:Provider Instructions for Treatment How to Access Health Informa tion Online using Patient Portal and [employer] Apps Indication:BMI 25.0-25.9,adult Start:25-Apr-2022 Instruction Type:Patient Education Patient Instructions Indication:Orthostatic hypotension Start:22-Apr-2022 Instruction Type:Provider Instructions for Treatment How to Access Health Informa tion Online using Patient Portal and [employer] Apps Indication:Orthostatic hypotension Start:22-Apr-2022 Instruction Type:Patient Education Patient Instructions Indication:Former smoker Start:22-Mar-2022 Instruction Type:Provider Instructions for Treatment How to Access Health Informa tion Online using Patient Portal and [employer] Apps Indication:Former smoker Start:22-Mar-2022 Instruction Type:Patient Education Patient Instructions Indication:BMI 28.0-28.9,adult Start:25-Jan-2022 Instruction Type:Provider Instructions for Treatment How to Access Health Informa tion Online using Patient Portal and [employer] Indication:BMI 28.0-28.9,adult Start:25-Jan-2022 Instruction Type:Patient Education Patient Instructions Indication:MIKY (obstructive sleep apnea) Start:14-Dec-2021 Instruction Type:Provider Instructions for Treatment How to Access Health Informa tion Online using Patient Portal and [employer] Apps Indication:MIKY (obstructive sleep apnea) Start:14-Dec-2021 Instruction Type:Patient Education Patient Instructions Indication:Low back pain with left-sided sciatica Start:13-Oct-2021 Instruction Type:Provider Instructions for Treatment How to Access Health Informa tion Online using Patient Portal and [employer] Apps Indication:Low back pain with left-sided sciatica Start:13-Oct-2021 Instruction Type:Patient Education Patient Instructions Indication:Annual Medicare Physical WITH abnormal findings (Renamed from Encounter for general adult medical examination with abnormal findings) Start:30-Aug-2021 Instruction Type:Provider Instructions for Treatment How to Access Health Informa tion Online using Patient Portal and [employer] Apps Indication:Annual Medicare Physical WITH abnormal findings [...] Informa tion Online using Patient Portal and [employer] Apps Indication:BMI 25.0-25.9,adult Start:14-Mar-2023 Instruction Type:Patient Education Patient Instructions Indication:Former smoker Start:02-Jan-2023 Instruction Type:Provider Instructions for Treatment How to Access Health Informa tion Online using Patient Portal and [employer] Apps Indication:Former smoker Start:02-Jan-2023 Instruction Type:Patient Education Patient Instructions Indication:BMI 25.0-25.9,adult Start:03-Oct-2022 Instruction Type:Provider Instructions for Treatment How to Access Health Informa tion Online using Patient Portal and [employer] Apps Indication:BMI 25.0-25.9,adult Start:03-Oct-2022 Instruction Type:Patient Education Patient Instructions Indication:Former smoker Start:23-Jun-2022 Instruction Type:Provider Instructions for Treatment How to Access Health Informa tion Online using Patient Portal and [employer] Apps Indication:Former smoker Start:23-Jun-2022 Instruction Type:Patient Education Patient Instructions Indication:Former smoker Start:02-Jun-2022 Instruction Type:Provider Instructions for Treatment How to Access Health Informa tion Online using Patient Portal and [employer] Apps Indication:Former smoker Start:02-Jun-2022 Instruction Type:Patient Education Patient Instructions Indication:Umbilical hernia Start:26-May-2022 Instruction Type:Provider Instructions for Treatment How to Access Health Informa tion Online using Patient Portal and [employer] Apps Indication:Umbilical hernia Start:26-May-2022 Instruction Type:Patient Education Patient Instructions Indication:BMI 25.0-25.9,adult Start:25-Apr-2022 Instruction Type:Provider Instructions for Treatment How to Access Health Informa tion Online using Patient Portal and [employer] Apps Indication:BMI 25.0-25.9,adult Start:25-Apr-2022 Instruction Type:Patient Education Patient Instructions Indication:Orthostatic hypotension Start:22-Apr-2022 Instruction Type:Provider Instructions for Treatment How to Access Health Informa tion Online using Patient Portal and [employer] Apps Indication:Orthostatic hypotension Start:22-Apr-2022 Instruction Type:Patient Education Patient Instructions Indication:Former smoker Start:22-Mar-2022 Instruction Type:Provider Instructions for Treatment How to Access Health Informa tion Online using Patient Portal and [employer] Apps Indication:Former smoker Start:22-Mar-2022 Instruction Type:Patient Education Patient Instructions Indication:BMI 28.0-28.9,adult Start:25-Jan-2022 Instruction Type:Provider Instructions for Treatment How to Access Health Informa tion Online using Patient Portal and [employer] Apps Indication:BMI 28.0-28.9,adult Start:25-Jan-2022 Instruction Type:Patient Education Patient Instructions Indication:MIKY (obstructive sleep apnea) Start:14-Dec-2021 Instruction Type:Provider Instructions for Treatment How to Access Health Informa tion Online using Patient Portal and [employer] Apps Indication:MIKY (obstructive sleep apnea) Start:14-Dec-2021 Instruction Type:Patient Education Patient Instructions Indication:Low back pain with left-sided sciatica Start:13-Oct-2021 Instruction Type:Provider Instructions for Treatment How to Access Health Informa tion Online using Patient Portal and [employer] Apps Indication:Low back pain with left-sided sciatica Start:13-Oct-2021 Instruction Type:Patient Education Patient Instructions Indication:Annual Medicare Physical WITH abnormal findings (Renamed from Encounter for general adult medical examination with abnormal findings) Start:30-Aug-2021 Instruction Type:Provider Instructions for Treatment How to Access Health Informa tion Online using Patient Portal and [employer] Apps Indication:Annual Medicare Physical WITH abnormal findings [...] Informa tion Online using Patient Portal and [employer] Apps Indication:BMI 25.0-25.9,adult Start:14-Mar-2023 Instruction Type:Patient Education Patient Instructions Indication:Former smoker Start:02-Jan-2023 Instruction Type:Provider Instructions for Treatment How to Access Health Informa tion Online using Patient Portal and [employer] Apps Indication:Former smoker Start:02-Jan-2023 Instruction Type:Patient Education Patient Instructions Indication:BMI 25.0-25.9,adult Start:03-Oct-2022 Instruction Type:Provider Instructions for Treatment How to Access Health Informa tion Online using Patient Portal and [employer] Apps Indication:BMI 25.0-25.9,adult Start:03-Oct-2022 Instruction Type:Patient Education Patient Instructions Indication:Former smoker Start:23-Jun-2022 Instruction Type:Provider Instructions for Treatment How to Access Health Informa tion Online using Patient Portal and [employer] Apps Indication:Former smoker Start:23-Jun-2022 Instruction Type:Patient Education Patient Instructions Indication:Former smoker Start:02-Jun-2022 Instruction Type:Provider Instructions for Treatment How to Access Health Informa tion Online using Patient Portal and [employer] Apps Indication:Former smoker Start:02-Jun-2022 Instruction Type:Patient Education Patient Instructions Indication:Umbilical hernia Start:26-May-2022 Instruction Type:Provider Instructions for Treatment How to Access Health Informa tion Online using Patient Portal and [employer] Apps Indication:Umbilical hernia Start:26-May-2022 Instruction Type:Patient Education Patient Instructions Indication:BMI 25.0-25.9,adult Start:25-Apr-2022 Instruction Type:Provider Instructions for Treatment How to Access Health Informa tion Online using Patient Portal and [employer] Indication:BMI 25.0-25.9,adult Start:25-Apr-2022 Instruction Type:Patient Education Patient Instructions Indication:Orthostatic hypotension Start:22-Apr-2022 Instruction Type:Provider Instructions for Treatment How to Access Health Informa tion Online using Patient Portal and [employer] Apps Indication:Orthostatic hypotension Start:22-Apr-2022 Instruction Type:Patient Education Patient Instructions Indication:Former smoker Start:22-Mar-2022 Instruction Type:Provider Instructions for Treatment How to Access Health Informa tion Online using Patient Portal and [employer] Apps Indication:Former smoker Start:22-Mar-2022 Instruction Type:Patient Education Patient Instructions Indication:BMI 28.0-28.9,adult Start:25-Jan-2022 Instruction Type:Provider Instructions for Treatment How to Access Health Informa tion Online using Patient Portal and [employer] Indication:BMI 28.0-28.9,adult Start:25-Jan-2022 Instruction Type:Patient Education Patient Instructions Indication:MIKY (obstructive sleep apnea) Start:14-Dec-2021 Instruction Type:Provider Instructions for Treatment How to Access Health Informa tion Online using Patient Portal and [employer] Indication:MIKY (obstructive sleep apnea) Start:14-Dec-2021 Instruction Type:Patient Education Patient Instructions Indication:Low back pain with left-sided sciatica Start:13-Oct-2021 Instruction Type:Provider Instructions for Treatment How to Access Health Informa tion Online using Patient Portal and [employer] Apps Indication:Low back pain with left-sided sciatica Start:13-Oct-2021 Instruction Type:Patient Education Patient Instructions Indication:Annual Medicare Physical WITH abnormal findings (Renamed from Encounter for general adult medical examination with abnormal findings) Start:30-Aug-2021 Instruction Type:Provider Instructions for Treatment How to Access Health Informa tion Online using Patient Portal and [employer] Apps Indication:Annual Medicare Physical WITH abnormal findings [...] tion Online using Patient Portal and [employer] Apps Indication:BMI 25.0-25.9,adult Start:14-Mar-2023 Instruction Type:Patient Education Patient Instructions Indication:Former smoker Start:02-Jan-2023 Instruction Type:Provider Instructions for Treatment How to Access Health Informa tion Online using Patient Portal and [employer] Apps Indication:Former smoker Start:02-Jan-2023 Instruction Type:Patient Education Patient Instructions Indication:BMI 25.0-25.9,adult Start:03-Oct-2022 Instruction Type:Provider Instructions for Treatment How to Access Health Informa tion Online using Patient Portal and [employer] Indication:BMI 25.0-25.9,adult Start:03-Oct-2022 Instruction Type:Patient Education Patient Instructions Indication:Former smoker Start:23-Jun-2022 Instruction Type:Provider Instructions for Treatment How to Access Health Informa tion Online using Patient Portal and [employer] Apps Indication:Former smoker Start:23-Jun-2022 Instruction Type:Patient Education Patient Instructions Indication:Former smoker Start:02-Jun-2022 Instruction Type:Provider Instructions for Treatment How to Access Health Informa tion Online using Patient Portal and [employer] Apps Indication:Former smoker Start:02-Jun-2022 Instruction Type:Patient Education Patient Instructions Indication:Umbilical hernia Start:26-May-2022 Instruction Type:Provider Instructions for Treatment How to Access Health Informa tion Online using Patient Portal and [employer] Indication:Umbilical hernia Start:26-May-2022 Instruction Type:Patient Education Patient Instructions Indication:BMI 25.0-25.9,adult Start:25-Apr-2022 Instruction Type:Provider Instructions for Treatment How to Access Health Informa tion Online using Patient Portal and [employer] Apps Indication:BMI 25.0-25.9,adult Start:25-Apr-2022 Instruction Type:Patient Education Patient Instructions Indication:Orthostatic hypotension Start:22-Apr-2022 Instruction Type:Provider Instructions for Treatment How to Access Health Informa tion Online using Patient Portal and [employer] Apps Indication:Orthostatic hypotension Start:22-Apr-2022 Instruction Type:Patient Education Patient Instructions Indication:Former smoker Start:22-Mar-2022 Instruction Type:Provider Instructions for Treatment How to Access Health Informa tion Online using Patient Portal and [employer] Indication:Former smoker Start:22-Mar-2022 Instruction Type:Patient Education Patient Instructions Indication:BMI 28.0-28.9,adult Start:25-Jan-2022 Instruction Type:Provider Instructions for Treatment How to Access Health Informa tion Online using Patient Portal and [employer] Indication:BMI 28.0-28.9,adult Start:25-Jan-2022 Instruction Type:Patient Education Patient Instructions Indication:MIKY (obstructive sleep apnea) Start:14-Dec-2021 Instruction Type:Provider Instructions for Treatment How to Access Health Informa tion Online using Patient Portal and [employer] Indication:MIKY (obstructive sleep apnea) Start:14-Dec-2021 Instruction Type:Patient Education Patient Instructions Indication:Low back pain with left-sided sciatica Start:13-Oct-2021 Instruction Type:Provider Instructions for Treatment How to Access Health Informa tion Online using Patient Portal and [employer] Apps Indication:Low back pain with left-sided sciatica Start:13-Oct-2021 Instruction Type:Patient Education Patient Instructions Indication:Annual Medicare Physical WITH abnormal findings (Renamed from Encounter for general adult medical examination with abnormal findings) Start:30-Aug-2021 Instruction Type:Provider Instructions for Treatment How to Access Health Informa tion Online using Patient Portal and [employer] Indication:Annual Medicare Physical WITH abnormal findings [...] tion Online using Patient Portal and [employer] Indication:Former smoker Start:02-May-2023 Instruction Type:Patient Education Patient Instructions Indication:BMI 25.0-25.9,adult Start:14-Mar-2023 Instruction Type:Provider Instructions for Treatment How to Access Health Informa tion Online using Patient Portal and [employer] Indication:BMI 25.0-25.9,adult Start:14-Mar-2023 Instruction Type:Patient Education Patient Instructions Indication:Former smoker Start:02-Jan-2023 Instruction Type:Provider Instructions for Treatment How to Access Health Informa tion Online using Patient Portal and [employer] Indication:Former smoker Start:02-Jan-2023 Instruction Type:Patient Education Patient Instructions Indication:BMI 25.0-25.9,adult Start:03-Oct-2022 Instruction Type:Provider Instructions for Treatment How to Access Health Informa tion Online using Patient Portal and [employer] Indication:BMI 25.0-25.9,adult Start:03-Oct-2022 Instruction Type:Patient Education Patient Instructions Indication:Former smoker Start:23-Jun-2022 Instruction Type:Provider Instructions for Treatment How to Access Health Informa tion Online using Patient Portal and [employer] Indication:Former smoker Start:23-Jun-2022 Instruction Type:Patient Education Patient Instructions Indication:Former smoker Start:02-Jun-2022 Instruction Type:Provider Instructions for Treatment How to Access Health Informa tion Online using Patient Portal and [employer] Indication:Former smoker Start:02-Jun-2022 Instruction Type:Patient Education Patient Instructions Indication:Umbilical hernia Start:26-May-2022 Instruction Type:Provider Instructions for Treatment How to Access Health Informa tion Online using Patient Portal and [employer] Indication:Umbilical hernia Start:26-May-2022 Instruction Type:Patient Education Patient Instructions Indication:BMI 25.0-25.9,adult Start:25-Apr-2022 Instruction Type:Provider Instructions for Treatment How to Access Health Informa tion Online using Patient Portal and [employer] Indication:BMI 25.0-25.9,adult Start:25-Apr-2022 Instruction Type:Patient Education Patient Instructions Indication:Orthostatic hypotension Start:22-Apr-2022 Instruction Type:Provider Instructions for Treatment How to Access Health Informa tion Online using Patient Portal and [employer] Apps Indication:Orthostatic hypotension Start:22-Apr-2022 Instruction Type:Patient Education Patient Instructions Indication:Former smoker Start:22-Mar-2022 Instruction Type:Provider Instructions for Treatment How to Access Health Informa tion Online using Patient Portal and [employer] Apps Indication:Former smoker Start:22-Mar-2022 Instruction Type:Patient Education Patient Instructions Indication:BMI 28.0-28.9,adult Start:25-Jan-2022 Instruction Type:Provider Instructions for Treatment How to Access Health Informa tion Online using Patient Portal and [employer] Apps Indication:BMI 28.0-28.9,adult Start:25-Jan-2022 Instruction Type:Patient Education Patient Instructions Indication:MIKY (obstructive sleep apnea) Start:14-Dec-2021 Instruction Type:Provider Instructions for Treatment How to Access Health Informa tion Online using Patient Portal and [employer] Apps Indication:MIKY (obstructive sleep apnea) Start:14-Dec-2021 Instruction Type:Patient Education Patient Instructions Indication:Low back pain with left-sided sciatica Start:13-Oct-2021 Instruction Type:Provider Instructions for Treatment How to Access Health Informa tion Online using Patient Portal and [employer] Apps Indication:Low back pain with left-sided sciatica Start:13-Oct-2021 Instruction Type:Patient Education Patient Instructions Indication:Annual Medicare Physical WITH abnormal findings (Renamed from Encounter for general adult medical examination with abnormal findings) Start:30-Aug-2021 Instruction Type:Provider Instructions for Treatment How to Access Health Informa tion Online using Patient Portal and [employer] Apps Indication:Annual Medicare Physical WITH abnormal findings [...] tion Online using Patient Portal and [employer] Indication:BMI 25.0-25.9,adult Start:08-Aug-2023 Instruction Type:Patient Education Patient Instructions Indication:Former smoker Start:02-May-2023 Instruction Type:Provider Instructions for Treatment How to Access Health Informa tion Online using Patient Portal and [employer] Indication:Former smoker Start:02-May-2023 Instruction Type:Patient Education Patient Instructions Indication:BMI 25.0-25.9,adult Start:14-Mar-2023 Instruction Type:Provider Instructions for Treatment How to Access Health Informa tion Online using Patient Portal and [employer] Indication:BMI 25.0-25.9,adult Start:14-Mar-2023 Instruction Type:Patient Education Patient Instructions Indication:Former smoker Start:02-Jan-2023 Instruction Type:Provider Instructions for Treatment How to Access Health Informa tion Online using Patient Portal and [employer] Indication:Former smoker Start:02-Jan-2023 Instruction Type:Patient Education Patient Instructions Indication:BMI 25.0-25.9,adult Start:03-Oct-2022 Instruction Type:Provider Instructions for Treatment How to Access Health Informa tion Online using Patient Portal and [employer]rd [employer] Apps Indication:BMI 25.0-25.9,adult Start:03-Oct-2022 Instruction Type:Patient Education Patient Instructions Indication:Former smoker Start:23-Jun-2022 Instruction Type:Provider Instructions for Treatment How to Access Health Informa tion Online using Patient Portal and [employer] Apps Indication:Former smoker Start:23-Jun-2022 Instruction Type:Patient Education Patient Instructions Indication:Former smoker Start:02-Jun-2022 Instruction Type:Provider Instructions for Treatment How to Access Health Informa tion Online using Patient Portal and [employer] Apps Indication:Former smoker Start:02-Jun-2022 Instruction Type:Patient Education Patient Instructions Indication:Umbilical hernia Start:26-May-2022 Instruction Type:Provider Instructions for Treatment How to Access Health Informa tion Online using Patient Portal and [employer]rd [employer] Apps Indication:Umbilical hernia Start:26-May-2022 Instruction Type:Patient Education Patient Instructions Indication:BMI 25.0-25.9,adult Start:25-Apr-2022 Instruction Type:Provider Instructions for Treatment How to Access Health Informa tion Online using Patient [employer] and [employer] Indication:BMI 25.0-25.9,adult Start:25-Apr-2022 Instruction Type:Patient Education Patient Instructions Indication:Orthostatic hypotension Start:22-Apr-2022 Instruction Type:Provider Instructions for Treatment How to Access Health Informa tion Online using Patient [employer] Apps Indication:Orthostatic hypotension Start:22-Apr-2022 Instruction Type:Patient Education Patient Instructions Indication:Former smoker Start:22-Mar-2022 Instruction Type:Provider Instructions for Treatment How to Access Health Informa tion Online using Patient [employer] Apps Indication:Former smoker Start:22-Mar-2022 Instruction Type:Patient Education Patient Instructions Indication:BMI 28.0-28.9,adult Start:25-Jan-2022 Instruction Type:Provider Instructions for Treatment How to Access Health Informa tion Online using Patient Portal and [employer] Apps Indication:BMI 28.0-28.9,adult Start:25-Jan-2022 Instruction Type:Patient Education Patient Instructions Indication:MIKY (obstructive sleep apnea) Start:14-Dec-2021 Instruction Type:Provider Instructions for Treatment How to Access Health Informa tion Online using Patient [employer] Indication:MIKY (obstructive sleep apnea) Start:14-Dec-2021 Instruction Type:Patient Education Patient Instructions Indication:Low back pain with left-sided sciatica Start:13-Oct-2021 Instruction Type:Provider Instructions for Treatment How to Access Health Informa tion Online using Patient Portal and [employer] Apps Indication:Low back pain with left-sided sciatica Start:13-Oct-2021 Instruction Type:Patient Education Patient Instructions Indication:Annual Medicare Physical WITH abnormal findings (Renamed from Encounter for general adult medical examination with abnormal findings) Start:30-Aug-2021 Instruction Type:Provider Instructions for Treatment How to Access Health Informa tion Online using Patient Portal and [employer] Apps Indication:Annual Medicare Physical WITH abnormal findings [...] tion Online using Patient Portal and [employer] Apps Indication:BMI 25.0-25.9,adult Start:08-Aug-2023 Instruction Type:Patient Education Patient Instructions Indication:Former smoker Start:02-May-2023 Instruction Type:Provider Instructions for Treatment How to Access Health Informa tion Online using Patient Portal and [employer] Apps Indication:Former smoker Start:02-May-2023 Instruction Type:Patient Education Patient Instructions Indication:BMI 25.0-25.9,adult Start:14-Mar-2023 Instruction Type:Provider Instructions for Treatment How to Access Health Informa tion Online using Patient Portal and [employer] Indication:BMI 25.0-25.9,adult Start:14-Mar-2023 Instruction Type:Patient Education Patient Instructions Indication:Former smoker Start:02-Jan-2023 Instruction Type:Provider Instructions for Treatment How to Access Health Informa tion Online using Patient Portal and [employer] Indication:Former smoker Start:02-Jan-2023 Instruction Type:Patient Education Patient Instructions Indication:BMI 25.0-25.9,adult Start:03-Oct-2022 Instruction Type:Provider Instructions for Treatment How to Access Health Informa tion Online using Patient Portal and [employer] Indication:BMI 25.0-25.9,adult Start:03-Oct-2022 Instruction Type:Patient Education Patient Instructions Indication:Former smoker Start:23-Jun-2022 Instruction Type:Provider Instructions for Treatment How to Access Health Informa tion Online using Patient Portal and [employer] Indication:Former smoker Start:23-Jun-2022 Instruction Type:Patient Education Patient Instructions Indication:Former smoker Start:02-Jun-2022 Instruction Type:Provider Instructions for Treatment How to Access Health Informa tion Online using Patient Portal and [employer] Indication:Former smoker Start:02-Jun-2022 Instruction Type:Patient Education Patient Instructions Indication:Umbilical hernia Start:26-May-2022 Instruction Type:Provider Instructions for Treatment How to Access Health Informa tion Online using Patient Portal and [employer] Apps Indication:Umbilical hernia Start:26-May-2022 Instruction Type:Patient Education Patient Instructions Indication:BMI 25.0-25.9,adult Start:25-Apr-2022 Instruction Type:Provider Instructions for Treatment How to Access Health Informa tion Online using Patient Portal and [employer] Apps Indication:BMI 25.0-25.9,adult Start:25-Apr-2022 Instruction Type:Patient Education Patient Instructions Indication:Orthostatic hypotension Start:22-Apr-2022 Instruction Type:Provider Instructions for Treatment How to Access Health Informa tion Online using Patient Portal and [employer] Apps Indication:Orthostatic hypotension Start:22-Apr-2022 Instruction Type:Patient Education Patient Instructions Indication:Former smoker Start:22-Mar-2022 Instruction Type:Provider Instructions for Treatment How to Access Health Informa tion Online using Patient [employer] Apps Indication:Former smoker Start:22-Mar-2022 Instruction Type:Patient Education Patient Instructions Indication:BMI 28.0-28.9,adult Start:25-Jan-2022 Instruction Type:Provider Instructions for Treatment How to Access Health Informa tion Online using Patient Portal and [employer] Apps Indication:BMI 28.0-28.9,adult Start:25-Jan-2022 Instruction Type:Patient Education Patient Instructions Indication:MIKY (obstructive sleep apnea) Start:14-Dec-2021 Instruction Type:Provider Instructions for Treatment How to Access Health Informa tion Online using Patient Portal and [employer] Apps Indication:MIKY (obstructive sleep apnea) Start:14-Dec-2021 Instruction Type:Patient Education Patient Instructions Indication:Low back pain with left-sided sciatica Start:13-Oct-2021 Instruction Type:Provider Instructions for Treatment How to Access Health Informa tion Online using Patient Portal and [employer] Apps Indication:Low back pain with left-sided sciatica Start:13-Oct-2021 Instruction Type:Patient Education Patient Instructions Indication:Annual Medicare Physical WITH abnormal findings (Renamed from Encounter for general adult medical examination with abnormal findings) Start:30-Aug-2021 Instruction Type:Provider Instructions for Treatment How to Access Health Informa tion Online using Patient Portal and [employer] Apps Indication:Annual Medicare Physical WITH abnormal findings [...] Informa tion Online using Patient Portal and [employer] Indication:Former smoker Start:15-Sep-2023 Instruction Type:Patient Education Patient Instructions Indication:BMI 25.0-25.9,adult Start:08-Aug-2023 Instruction Type:Provider Instructions for Treatment How to Access Health Informa tion Online using Patient Portal and [employer] Apps Indication:BMI 25.0-25.9,adult Start:08-Aug-2023 Instruction Type:Patient Education Patient Instructions Indication:Former smoker Start:02-May-2023 Instruction Type:Provider Instructions for Treatment How to Access Health Informa tion Online using Patient Portal and [employer] Apps Indication:Former smoker Start:02-May-2023 Instruction Type:Patient Education Patient Instructions Indication:BMI 25.0-25.9,adult Start:14-Mar-2023 Instruction Type:Provider Instructions for Treatment How to Access Health Informa tion Online using Patient Portal and [employer] Apps Indication:BMI 25.0-25.9,adult Start:14-Mar-2023 Instruction Type:Patient Education Patient Instructions Indication:Former smoker Start:02-Jan-2023 Instruction Type:Provider Instructions for Treatment How to Access Health Informa tion Online using Patient Portal and [employer] Apps Indication:Former smoker Start:02-Jan-2023 Instruction Type:Patient Education Patient Instructions Indication:BMI 25.0-25.9,adult Start:03-Oct-2022 Instruction Type:Provider Instructions for Treatment How to Access Health Informa tion Online using Patient Portal and [employer] Indication:BMI 25.0-25.9,adult Start:03-Oct-2022 Instruction Type:Patient Education Patient Instructions Indication:Former smoker Start:23-Jun-2022 Instruction Type:Provider Instructions for Treatment How to Access Health Informa tion Online using Patient Portal and [employer] Indication:Former smoker Start:23-Jun-2022 Instruction Type:Patient Education Patient Instructions Indication:Former smoker Start:02-Jun-2022 Instruction Type:Provider Instructions for Treatment How to Access Health Informa tion Online using Patient Portal and [employer] Indication:Former smoker Start:02-Jun-2022 Instruction Type:Patient Education Patient Instructions Indication:Umbilical hernia Start:26-May-2022 Instruction Type:Provider Instructions for Treatment How to Access Health Informa tion Online using Patient Portal and [employer] Indication:Umbilical hernia Start:26-May-2022 Instruction Type:Patient Education Patient Instructions Indication:BMI 25.0-25.9,adult Start:25-Apr-2022 Instruction Type:Provider Instructions for Treatment How to Access Health Informa tion Online using Patient Portal and [employer] Indication:BMI 25.0-25.9,adult Start:25-Apr-2022 Instruction Type:Patient Education Patient Instructions Indication:Orthostatic hypotension Start:22-Apr-2022 Instruction Type:Provider Instructions for Treatment How to Access Health Informa tion Online using Patient Portal and [employer] Indication:Orthostatic hypotension Start:22-Apr-2022 Instruction Type:Patient Education Patient Instructions Indication:Former smoker Start:22-Mar-2022 Instruction Type:Provider Instructions for Treatment How to Access Health Informa tion Online using Patient Portal and [employer] Indication:Former smoker Start:22-Mar-2022 Instruction Type:Patient Education Patient Instructions Indication:BMI 28.0-28.9,adult Start:25-Jan-2022 Instruction Type:Provider Instructions for Treatment How to Access Health Informa tion Online using Patient Portal and [employer] Indication:BMI 28.0-28.9,adult Start:25-Jan-2022 Instruction Type:Patient Education Patient Instructions Indication:MIKY (obstructive sleep apnea) Start:14-Dec-2021 Instruction Type:Provider Instructions for Treatment How to Access Health Informa tion Online using Patient Portal and [employer] Indication:MIKY (obstructive sleep apnea) Start:14-Dec-2021 Instruction Type:Patient Education Patient Instructions Indication:Low back pain with left-sided sciatica Start:13-Oct-2021 Instruction Type:Provider Instructions for Treatment How to Access Health Informa tion Online using Patient Portal and [employer] Indication:Low back pain with left-sided sciatica Start:13-Oct-2021 Instruction Type:Patient Education Patient Instructions Indication:Annual Medicare Physical WITH abnormal findings (Renamed from Encounter for general adult medical examination with abnormal findings) Start:30-Aug-2021 Instruction Type:Provider Instructions for Treatment How to Access Health Informa tion Online using Patient Portal and [employer] Apps Indication:Annual Medicare Physical WITH abnormal findings [...] Informa tion Online using Patient Portal and [employer] Apps Indication:Former smoker Start:15-Sep-2023 Instruction Type:Patient Education Patient Instructions Indication:BMI 25.0-25.9,adult Start:08-Aug-2023 Instruction Type:Provider Instructions for Treatment How to Access Health Informa tion Online using Patient Portal and [employer] Indication:BMI 25.0-25.9,adult Start:08-Aug-2023 Instruction Type:Patient Education Patient Instructions Indication:Former smoker Start:02-May-2023 Instruction Type:Provider Instructions for Treatment How to Access Health Informa tion Online using Patient Portal and [employer] Indication:Former smoker Start:02-May-2023 Instruction Type:Patient Education Patient Instructions Indication:BMI 25.0-25.9,adult Start:14-Mar-2023 Instruction Type:Provider Instructions for Treatment How to Access Health Informa tion Online using Patient Portal and [employer] Indication:BMI 25.0-25.9,adult Start:14-Mar-2023 Instruction Type:Patient Education Patient Instructions Indication:Former smoker Start:02-Jan-2023 Instruction Type:Provider Instructions for Treatment How to Access Health Informa tion Online using Patient Portal and [employer] Indication:Former smoker Start:02-Jan-2023 Instruction Type:Patient Education Patient Instructions Indication:BMI 25.0-25.9,adult Start:03-Oct-2022 Instruction Type:Provider Instructions for Treatment How to Access Health Informa tion Online using Patient Portal and [employer] Indication:BMI 25.0-25.9,adult Start:03-Oct-2022 Instruction Type:Patient Education Patient Instructions Indication:Former smoker Start:23-Jun-2022 Instruction Type:Provider Instructions for Treatment How to Access Health Informa tion Online using Patient Portal and [employer] Indication:Former smoker Start:23-Jun-2022 Instruction Type:Patient Education Patient Instructions Indication:Former smoker Start:02-Jun-2022 Instruction Type:Provider Instructions for Treatment How to Access Health Informa tion Online using Patient Portal and [employer] Indication:Former smoker Start:02-Jun-2022 Instruction Type:Patient Education Patient Instructions Indication:Umbilical hernia Start:26-May-2022 Instruction Type:Provider Instructions for Treatment How to Access Health Informa tion Online using Patient Portal and [employer] Indication:Umbilical hernia Start:26-May-2022 Instruction Type:Patient Education Patient Instructions Indication:BMI 25.0-25.9,adult Start:25-Apr-2022 Instruction Type:Provider Instructions for Treatment How to Access Health Informa tion Online using Patient Portal and [employer] Indication:BMI 25.0-25.9,adult Start:25-Apr-2022 Instruction Type:Patient Education Patient Instructions Indication:Orthostatic hypotension Start:22-Apr-2022 Instruction Type:Provider Instructions for Treatment How to Access Health Informa tion Online using Patient Portal and [employer] Indication:Orthostatic hypotension Start:22-Apr-2022 Instruction Type:Patient Education Patient Instructions Indication:Former smoker Start:22-Mar-2022 Instruction Type:Provider Instructions for Treatment How to Access Health Informa tion Online using Patient Portal and [employer] Indication:Former smoker Start:22-Mar-2022 Instruction Type:Patient Education Patient Instructions Indication:BMI 28.0-28.9,adult Start:8-Mar-2022 Instruction Type:Provider Instructions for Treatment How to Access Health Informa tion Online using Patient Portal and [employer] Indication:BMI 28.0-28.9,adult Start:25-Jan-2022 Instruction Type:Patient Education Patient Instructions Indication:MIKY (obstructive sleep apnea) Start:14-Dec-2021 Instruction Type:Provider Instructions for Treatment How to Access Health Informa tion Online using Patient Portal and [employer] Apps Indication:MIKY (obstructive sleep apnea) Start:14-Dec-2021 Instruction Type:Patient Education Patient Instructions Indication:Low back pain with left-sided sciatica Start:13-Oct-2021 Instruction Type:Provider Instructions for Treatment How to Access Health Informa tion Online using Patient Portal and [employer] Indication:Low back pain with left-sided sciatica Start:13-Oct-2021 Instruction Type:Patient Education Patient Instructions Indication:Annual Medicare Physical WITH abnormal findings (Renamed from Encounter for general adult medical examination with abnormal findings) Start:30-Aug-2021 Instruction Type:Provider Instructions for Treatment How to Access Health Informa tion Online using Patient Portal and [employer] Apps Indication:Annual Medicare Physical WITH abnormal findings [...] t Referred To Contact [facility] Diagnoses Tachycardia Procedures ECG COMPLETE ECG ROUTINE ECG W/LEAST 12 LDS W/I&R Salomón Venegas MD [address] [place] [address] [facility] [address] [address] Referral ID Status Reason Start Date Expiration Date Visits Requested Visits Authorized [id number] Authorized Auto-Generat ed Referral 03/21/2023 03/20/2024 1 1 [facility] Family History Unknown Family Member Name Dates Details Father Comments: 88yo supranucl ear palsy. Status:Active Maternal Grandfather Comments: of [place] in 50's Status:Active Maternal Grandmother Comments:lived to 80's Status:Active Mother Comments: breast cancer at 67 yo Status:Active niece colon cancer Status:Active Sister 1 Comments: by suicide at 78 yo. younger. had doctorate from [employer] had fall and cervical spine injury. not able to use her arms. Status:Active Unknown Family Member Name Dates Details Father Comments: 88yo supranucl ear palsy. Status:Active Maternal Grandfather Comments: of [place] in 50's Status:Active Maternal Grandmother Comments:lived to 80's Status:Active Mother Comments: breast cancer at 67 yo Status:Active niece colon cancer Status:Active Sister 1 Comments: by suicide at 78 yo. younger. had doctorate from [employer] had fall and cervical spine injury. not able to use her arms. Status:Active Unknown Family Member Name Dates Details Father Comments: 88yo supranucl ear palsy. Status:Active Maternal Grandfather Comments: of [place] in 50's Status:Active Maternal Grandmother Comments:lived to 80's Status:Active Mother Comments: breast cancer at 67 yo Status:Active niece colon cancer Status:Active Sister 1 Comments: by suicide at 78 yo. younger. had doctorate from [employer] had fall and cervical spine injury. not able to use her arms. Status:Active Unknown Family Member Name Dates Details Father Comments: 88yo supranucl ear palsy. Status:Active Maternal Grandfather Comments: of [place] in 50's Status:Active Maternal Grandmother Comments:lived to 80's Status:Active Mother Comments: breast cancer at 67 yo Status:Active niece colon cancer Status:Active Sister 1 Comments: by suicide at 78 yo. younger. had doctorate from [employer] had fall and cervical spine injury. not able to use her arms. Status:Active Unknown Family Member Name Dates Details Father Comments: 88yo supranucl ear palsy. Status:Active Maternal Grandfather Comments: of [place] in 50's Status:Active Maternal Grandmother Comments:lived to 80's Status:Active Mother Comments: breast cancer at 67 yo Status:Active niece colon cancer Status:Active Sister 1 Comments: by suicide at 78 yo. younger. had doctorate from [employer] had fall and cervical spine injury. not able to use her arms. Status:Active Unknown Family Member Name Dates Details Father Comments: 88yo supranucl ear palsy. Status:Active Maternal Grandfather Comments: of [place] in 50's Status:Active Maternal Grandmother Comments:lived to 80's Status:Active Mother Comments: breast cancer at 67 yo Status:Active niece colon cancer Status:Active Sister 1 Comments: by suicide at 78 yo. younger. had doctorate from [employer] had fall and cervical spine injury. not able to use her arms. Status:Active Unknown Family Member Name Dates Details Father Comments: 88yo supranucl ear palsy. Status:Active Maternal Grandfather Comments: of [place] in 50's Status:Active Maternal Grandmother Comments:lived to 80's Status:Active Mother Comments: breast cancer at 67 yo Status:Active niece colon cancer Status:Active Sister 1 Comments: by suicide at 78 yo. younger. had doctorate from [employer] had fall and cervical spine injury. not able to use her arms. Status:Active Unknown Family Member Name Dates Details Father Comments: 88yo supranucl ear palsy. Status:Active Maternal Grandfather Comments: of [place] in 50's Status:Active Maternal Grandmother Comments:lived to 80's Status:Active Mother Comments: breast cancer at 67 yo Status:Active niece colon cancer Status:Active Sister 1 Comments: by suicide at 78 yo. younger. had doctorate from [employer] had fall and cervical spine injury. not able to use her arms. Status:Active Unknown Family Member Name Dates Details Father Comments: 88yo supranucl ear palsy. Status:Active Maternal Grandfather Comments: of [place] in 50's Status:Active Maternal Grandmother Comments:lived to 80's Status:Active Mother Comments: breast cancer at 67 yo Status:Active niece colon cancer Status:Active Sister 1 Comments: by suicide at 78 yo. younger. had doctorate from [employer] had fall and cervical spine injury. not able to use her arms. Status:Active Unknown Family Member Name Dates Details Father Comments: 88yo supranucl ear palsy. Status:Active Maternal Grandfather Comments: of [place] in 50's Status:Active Maternal Grandmother Comments:lived to 80's Status:Active Mother Comments: breast cancer at 67 yo Status:Active niece colon cancer Status:Active Sister 1 Comments: by suicide at 78 yo. younger. had doctorate from [employer] had fall and cervical spine injury. not able to use her arms. Status:Active Unknown Family Member Name Dates Details Father Comments: 88yo supranucl ear palsy. Status:Active Maternal Grandfather Comments: of [place] in 50's Status:Active Maternal Grandmother Comments:lived to 80's Status:Active Mother Comments: breast cancer at 67 yo Status:Active niece colon cancer Status:Active Sister 1 Comments: by suicide at 78 yo. younger. had doctorate from [employer] had fall and cervical spine injury. not able to use her arms. Status:Active Unknown Family Member Name Dates Details Father Comments: 88yo supranucl ear palsy. Status:Active Maternal Grandfather Comments: of [place] in 50's Status:Active Maternal Grandmother Comments:lived to 80's Status:Active Mother Comments: breast cancer at 67 yo Status:Active niece colon cancer Status:Active Sister 1 Comments: by suicide at 78 yo. younger. had doctorate from [employer] had fall and cervical spine injury. not able to use her arms. Status:Active Unknown Family Member Name Dates Details Father Comments: 88yo supranucl ear palsy. Status:Active Maternal Grandfather Comments: of [place] in 50's Status:Active Maternal Grandmother Comments:lived to 80's Status:Active Mother Comments: breast cancer at 67 yo Status:Active niece colon cancer Status:Active Sister 1 Comments: by suicide at 78 yo. younger. had doctorate from [employer] had fall and cervical spine injury. not able to use her arms. Status:Active Unknown Family Member Name Dates Details Father Comments: 88yo supranucl ear palsy. Status:Active Maternal Grandfather Comments: of [place] in 50's Status:Active Maternal Grandmother Comments:lived to 80's Status:Active Mother Comments: breast cancer at 67 yo Status:Active niece colon cancer Status:Active Sister 1 Comments: by suicide at 78 yo. younger. had doctorate from [place] had fall and cervical spine injury. not able to use her arms. Status:Active Unknown Family Member Name Dates Details Father Comments: 88yo supranucl ear palsy. Status:Active Maternal Grandfather Comments: of [place] in 50's Status:Active Maternal Grandmother Comments:lived to 80's Status:Active Mother Comments: breast cancer at 67 yo Status:Active niece colon cancer Status:Active Sister 1 Comments: by suicide at 78 yo. younger. had doctorate from [employer] had fall and cervical spine injury. not able to use her arms. Status:Active Unknown Family Member Name Dates Details Father Comments: 88yo supranucl ear palsy. Status:Active Maternal Grandfather Comments: of [place] in 50's Status:Active Maternal Grandmother Comments:lived to 80's Status:Active Mother Comments: breast cancer at 67 yo Status:Active niece colon cancer Status:Active Sister 1 Comments: by suicide at 78 yo. younger. had doctorate from [employer] had fall and cervical spine injury. not able to use her arms. Status:Active Unknown Family Member Name Dates Details Father Comments: 88yo supranucl ear palsy. Status:Active Maternal Grandfather Comments: of [place] in 50's Status:Active Maternal Grandmother Comments:lived to 80's Status:Active Mother Comments: breast cancer at 67 yo Status:Active niece colon cancer Status:Active Sister 1 Comments: by suicide at 78 yo. younger. had doctorate from [employer] had fall and cervical spine injury. not able to use her arms. Status:Active Unknown Family Member Name Dates Details Father Comments: 88yo supranucl ear palsy. Status:Active Maternal Grandfather Comments: of [place] in 50's Status:Active Maternal Grandmother Comments:lived to 80's Status:Active Mother Comments: breast cancer at 67 yo Status:Active niece colon cancer Status:Active Sister 1 Comments: by suicide at 78 yo. younger. had doctorate from [employer] had fall and cervical spine injury. not able to use her arms. Status:Active Unknown Family Member Name Dates Details Father Comments: 88yo supranucl ear palsy. Status:Active Maternal Grandfather Comments: of [place] in 50's Status:Active Maternal Grandmother Comments:lived to 80's Status:Active Mother Comments: breast cancer at 67 yo Status:Active niece colon cancer Status:Active Sister 1 Comments: by suicide at 78 yo. younger. had doctorate from [employer] had fall and cervical spine injury. not able to use her arms. Status:Active Unknown Family Member Name Dates Details Father Comments: 88yo supranucl ear palsy. Status:Active Maternal Grandfather Comments: of [place] in 50's Status:Active Maternal Grandmother Comments:lived to 80's Status:Active Mother Comments: breast cancer at 67 yo Status:Active niece colon cancer Status:Active Sister 1 Comments: by suicide at 78 yo. younger. had doctorate from [place] had fall and cervical spine injury. not able to use her arms. Status:Active Unknown Family Member Name Dates Details Father Comments: 88yo supranucl ear palsy. Status:Active Maternal Grandfather Comments: of [place] in 50's Status:Active Maternal Grandmother Comments:lived to 80's Status:Active Mother Comments: breast cancer at 67 yo Status:Active niece colon cancer Status:Active Sister 1 Comments: by suicide at 78 yo. younger. had doctorate from [employer] had fall and cervical spine injury. not able to use her arms. Status:Active Unknown Family Member Name Dates Details Father Comments: 88yo supranucl ear palsy. Status:Active Maternal Grandfather Comments: of [place] in 50's Status:Active Maternal Grandmother Comments:lived to 80's Status:Active Mother Comments: breast cancer at 67 yo Status:Active niece colon cancer Status:Active Sister 1 Comments: by suicide at 78 yo. younger. had doctorate from [employer] had fall and cervical spine injury. not able to use her arms. Status:Active Unknown Family Member Name Dates Details Father Comments: 88yo supranucl ear palsy. Status:Active Maternal Grandfather Comments: of [place] in 50's Status:Active Maternal Grandmother Comments:lived to 80's Status:Active Mother Comments: breast cancer at 67 yo Status:Active niece colon cancer Status:Active Sister 1 Comments: by suicide at 78 yo. younger. had doctorate from [employer] had fall and cervical spine injury. not able to use her arms. Status:Active Unknown Family Member Name Dates Details Father Comments: 88yo supranucl ear palsy. Status:Active Maternal Grandfather Comments: of [place] in 50's Status:Active Maternal Grandmother Comments:lived to 80's Status:Active Mother Comments: breast cancer at 67 yo Status:Active niece colon cancer Status:Active Sister 1 Comments: by suicide at 78 yo. younger. had doctorate from [employer] had fall and cervical spine injury. not able to use her arms. Status:Active Unknown Family Member Name Dates Details Father Comments: 88yo supranucl ear palsy. Status:Active Maternal Grandfather Comments: of [place] in 50's Status:Active Maternal Grandmother Comments:lived to 80's Status:Active Mother Comments: breast cancer at 67 yo Status:Active niece colon cancer Status:Active Sister 1 Comments: by suicide at 78 yo. younger. had doctorate from [employer] had fall and cervical spine injury. not able to use her arms. Status:Active Unknown Family Member Name Dates Details Father Comments: 88yo supranucl ear palsy. Status:Active Maternal Grandfather Comments: of [place] in 50's Status:Active Maternal Grandmother Comments:lived to 80's Status:Active Mother Comments: breast cancer at 67 yo Status:Active niece colon cancer Status:Active Sister 1 Comments: by suicide at 78 yo. younger. had doctorate from [employer] had fall and cervical spine injury. not able to use her arms. Status:Active Unknown Family Member Name Dates Details Father Comments: 88yo supranucl ear palsy. Status:Active Maternal Grandfather Comments: of [place] in 50's Status:Active Maternal Grandmother Comments:lived to 80's Status:Active Mother Comments: breast cancer at 67 yo Status:Active niece colon cancer Status:Active Sister 1 Comments: by suicide at 78 yo. younger. had doctorate from [employer] had fall and cervical spine injury. not able to use her arms. Status:Active Unknown Family Member Name Dates Details Father Comments: 88yo supranucl ear palsy. Status:Active Maternal Grandfather Comments: of [place] in 50's Status:Active Maternal Grandmother Comments:lived to 80's Status:Active Mother Comments: breast cancer at 67 yo Status:Active niece colon cancer Status:Active Sister 1 Comments: by suicide at 78 yo. younger. had doctorate from [employer] had fall and cervical spine injury. not able to use her arms. Status:Active Unknown Family Member Name Dates Details Father Comments: 88yo supranucl ear palsy. Status:Active Maternal Grandfather Comments: of [place] in 50's Status:Active Maternal Grandmother Comments:lived to 80's Status:Active Mother Comments: breast cancer at 67 yo Status:Active niece colon cancer Status:Active Sister 1 Comments: by suicide at 78 yo. younger. had doctorate from [employer] had fall and cervical spine injury. not able to use her arms. Status:Active Unknown Family Member Name Dates Details Father Comments: 88yo supranucl ear palsy. Status:Active Maternal Grandfather Comments: of [place] in 50's Status:Active Maternal Grandmother Comments:lived to 80's Status:Active Mother Comments: breast cancer at 67 yo Status:Active niece colon cancer Status:Active Sister 1 Comments: by suicide at 78 yo. younger. had doctorate from [employer] had fall and cervical spine injury. not able to use her arms. Status:Active Unknown Family Member Name Dates Details Father Comments: 88yo supranucl ear palsy. Status:Active Maternal Grandfather Comments: of [place] in 50's Status:Active Maternal Grandmother Comments:lived to 80's Status:Active Mother Comments: breast cancer at 67 yo Status:Active niece colon cancer Status:Active Sister 1 Comments: by suicide at 78 yo. younger. had doctorate from [employer] had fall and cervical spine injury. not able to use her arms. Status:Active Unknown Family Member Name Dates Details Father Comments: 88yo supranucl ear palsy. Status:Active Maternal Grandfather Comments: of [place] in 50's Status:Active Maternal Grandmother Comments:lived to 80's Status:Active Mother Comments: breast cancer at 67 yo Status:Active niece colon cancer Status:Active Sister 1 Comments: by suicide at 78 yo. younger. had doctorate from [place] had fall and cervical spine injury. not able to use her arms. Status:Active Unknown Family Member Name Dates Details Father Comments: 88yo supranucl ear palsy. Status:Active Maternal Grandfather Comments: of [place] in 50's Status:Active Maternal Grandmother Comments:lived to 80's Status:Active Mother Comments: breast cancer at 67 yo Status:Active niece colon cancer Status:Active Sister 1 Comments: by suicide at 78 yo. younger. had doctorate from [place] had fall and cervical spine injury. not able to use her arms. Status:Active Unknown Family Member Name Dates Details Father Comments: 88yo supranucl ear palsy. Status:Active Maternal Grandfather Comments: of [place] in 50's Status:Active Maternal Grandmother Comments:lived to 80's Status:Active Mother Comments: breast cancer at 67 yo Status:Active niece colon cancer Status:Active Sister 1 Comments: by suicide at 78 yo. younger. had doctorate from [place] had fall and cervical spine injury. not able to use her arms. Status:Active Unknown Family Member Name Dates Details Father Comments: 88yo supranucl ear palsy. Status:Active Maternal Grandfather Comments: of [place] in 50's Status:Active Maternal Grandmother Comments:lived to 80's Status:Active Mother Comments: breast cancer at 67 yo Status:Active niece colon cancer Status:Active Sister 1 Comments: by suicide at 78 yo. younger. had doctorate from [place] had fall and cervical spine injury. not able to use her arms. Status:Active Unknown Family Member Name Dates Details Father Comments: 88yo supranucl ear palsy. Status:Active Maternal Grandfather Comments: of [place] in 50's Status:Active Maternal Grandmother Comments:lived to 80's Status:Active Mother Comments: breast cancer at 67 yo Status:Active niece colon cancer Status:Active Sister 1 Comments: by suicide at 78 yo. younger. had doctorate from [place] had fall and cervical spine injury. not able to use her arms. Status:Active Unknown Family Member Name Dates Details Father Comments: 88yo supranucl ear palsy. Status:Active Maternal Grandfather Comments: of [place] in 50's Status:Active Maternal Grandmother Comments:lived to 80's Status:Active Mother Comments: breast cancer at 67 yo Status:Active niece colon cancer Status:Active Sister 1 Comments: by suicide at 78 yo. younger. had doctorate from [place] had fall and cervical spine injury. not able to use her arms. Status:Active Unknown Family Member Name Dates Details Father Comments: 88yo supranucl ear palsy. Status:Active Maternal Grandfather Comments: of [place] in 50's Status:Active Maternal Grandmother Comments:lived to 80's Status:Active Mother Comments: breast cancer at 67 yo Status:Active niece colon cancer Status:Active Sister 1 Comments: by suicide at 78 yo. younger. had doctorate from [place] had fall and cervical spine injury. not able to use her arms. Status:Active Unknown Family Member Name Dates Details Father Comments: 88yo supranucl ear palsy. Status:Active Maternal Grandfather Comments: of [place] in 50's Status:Active Maternal Grandmother Comments:lived to 80's Status:Active Mother Comments: breast cancer at 67 yo Status:Active niece colon cancer Status:Active Sister 1 Comments: by suicide at 78 yo. younger. had doctorate from [place] had fall and cervical spine injury. not able to use her arms. Status:Active Unknown Family Member Name Dates Details Father Comments: 88yo supranucl ear palsy. Status:Active Maternal Grandfather Comments: of [place] in 50's Status:Active Maternal Grandmother Comments:lived to 80's Status:Active Mother Comments: breast cancer at 67 yo Status:Active niece colon cancer Status:Active Sister 1 Comments: by suicide at 78 yo. younger. had doctorate from [place] had fall and cervical spine injury. not able to use her arms. Status:Active Unknown Family Member Name Dates Details Father Comments: 88yo supranucl ear palsy. Status:Active Maternal Grandfather Comments: of [place] in 50's Status:Active Maternal Grandmother Comments:lived to 80's Status:Active Mother Comments: breast cancer at 67 yo Status:Active niece colon cancer Status:Active Sister 1 Comments: by suicide at 78 yo. younger. had doctorate from [place] had fall and cervical spine injury. not able to use her arms. Status:Active Unknown Family Member Name Dates Details Father Comments: 88yo supranucl ear palsy. Status:Active Maternal Grandfather Comments: of [place] in 50's Status:Active Maternal Grandmother Comments:lived to 80's Status:Active Mother Comments: breast cancer at 67 yo Status:Active niece colon cancer Status:Active Sister 1 Comments: by suicide at 78 yo. younger. had doctorate from [place] had fall and cervical spine injury. not able to use her arms. Status:Active Unknown Family Member Name Dates Details Father Comments: 88yo supranucl ear palsy. Status:Active Maternal Grandfather Comments: of [place] in 50's Status:Active Maternal Grandmother Comments:lived to 80's Status:Active Mother Comments: breast cancer at 67 yo Status:Active niece colon cancer Status:Active Sister 1 Comments: by suicide at 78 yo. younger. had doctorate from [place] had fall and cervical spine injury. not able to use her arms. Status:Active Unknown Family Member Name Dates Details Father Comments: 88yo supranucl ear palsy. Status:Active Maternal Grandfather Comments: of [place] in 50's Status:Active Maternal Grandmother Comments:lived to 80's Status:Active Mother Comments: breast cancer at 67 yo Status:Active niece colon cancer Status:Active Sister 1 Comments: by suicide at 78 yo. younger. had doctorate from [place] had fall and cervical spine injury. not able to use her arms. Status:Active Advance Directives Name Dates Details Immunization Registry [place] - Effective on 08/19/2021. Expiration date unspecified Effective:19-Aug-2021 Name Dates Details Immunization Registry [place] - Effective on 08/19/2021. Expiration date unspecified Effective:19-Aug-2021 Name Dates Details Immunization Registry [place] - Effective on 08/19/2021. Expiration date unspecified Effective:19-Aug-2021 Name Dates Details Immunization Registry [place] - Effective on 08/19/2021. Expiration date unspecified Effective:19-Aug-2021 Name Dates Details Immunization Registry [place] - Effective on 08/19/2021. Expiration date unspecified Effective:19-Aug-2021 Name Dates Details Immunization Registry [place] - Effective on 08/19/2021. Expiration date unspecified Effective:19-Aug-2021 Name Dates Details Immunization Registry [place] - Effective on 08/19/2021. Expiration date unspecified Effective:19-Aug-2021 Name Dates Details Immunization Registry [place] - Effective on 08/19/2021. Expiration date unspecified Effective:19-Aug-2021 Name Dates Details Immunization Registry [place] - Effective on 08/19/2021. Expiration date unspecified Effective:19-Aug-2021 Name Dates Details Immunization Registry [place] - Effective on 08/19/2021. Expiration date unspecified Effective:19-Aug-2021 Name Dates Details Immunization Registry [place] - Effective on 08/19/2021. Expiration date unspecified Effective:19-Aug-2021 Name Dates Details Immunization Registry [place] - Effective on 08/19/2021. Expiration date unspecified Effective:19-Aug-2021 Name Dates Details Immunization Registry [place] - Effective on 08/19/2021. Expiration date unspecified Effective:19-Aug-2021 Name Dates Details Immunization Registry [place] - Effective on 08/19/2021. Expiration date unspecified Effective:19-Aug-2021 Name Dates Details Immunization Registry [place] - Effective on 08/19/2021. Expiration date unspecified Effective:19-Aug-2021 Name Dates Details Immunization Registry [place] - Effective on 08/19/2021. Expiration date unspecified Effective:19-Aug-2021 Name Dates Details Immunization Registry [place] - Effective on 08/19/2021. Expiration date unspecified Effective:19-Aug-2021 Name Dates Details Immunization Registry [place] - Effective on 08/19/2021. Expiration date unspecified Effective:19-Aug-2021 Name Dates Details Immunization Registry [place] - Effective on 08/19/2021. Expiration date unspecified Effective:19-Aug-2021 Name Dates Details Immunization Registry [place] - Effective on 08/19/2021. Expiration date unspecified Effective:19-Aug-2021 Name Dates Details Immunization Registry [place] - Effective on 08/19/2021. Expiration date unspecified Effective:19-Aug-2021 Name Dates Details Immunization Registry [place] - Effective on 08/19/2021. Expiration date unspecified Effective:19-Aug-2021 Name Dates Details Immunization Registry [place] - Effective on 08/19/2021. Expiration date unspecified Effective:19-Aug-2021 Name Dates Details Immunization Registry [place] - Effective on 08/19/2021. Expiration date unspecified Effective:19-Aug-2021 Name Dates Details Immunization Registry [place] - Effective on 08/19/2021. Expiration date unspecified Effective:19-Aug-2021 Name Dates Details Immunization Registry [place] - Effective on 08/19/2021. Expiration date unspecified Effective:19-Aug-2021 Name Dates Details Immunization Registry [place] - Effective on 08/19/2021. Expiration date unspecified Effective:19-Aug-2021 Name Dates Details Immunization Registry [place] - Effective on 08/19/2021. Expiration date unspecified Effective:19-Aug-2021 Name Dates Details Immunization Registry [place] - Effective on 08/19/2021. Expiration date unspecified Effective:19-Aug-2021 Name Dates Details Immunization Registry [place] - Effective on 08/19/2021. Expiration date unspecified Effective:19-Aug-2021 Name Dates Details Immunization Registry [place] - Effective on 08/19/2021. Expiration date unspecified Effective:19-Aug-2021 Name Dates Details Immunization Registry [place] - Effective on 08/19/2021. Expiration date unspecified Effective:19-Aug-2021 Name Dates Details Immunization Registry [place] - Effective on 08/19/2021. Expiration date unspecified Effective:19-Aug-2021 Name Dates Details Immunization Registry [place] - Effective on 08/19/2021. Expiration date unspecified Effective:19-Aug-2021 Name Dates Details Immunization Registry [place] - Effective on 08/19/2021. Expiration date unspecified Effective:19-Aug-2021 Name Dates Details Immunization Registry [place] - Effective on 08/19/2021. Expiration date unspecified Effective:19-Aug-2021 Name Dates Details Immunization Registry [place] - Effective on 08/19/2021. Expiration date unspecified Effective:19-Aug-2021 Name Dates Details Immunization Registry [place] - Effective on 08/19/2021. Expiration date unspecified Effective:19-Aug-2021 Summary Purpose Additional Source Comments Source Comments (unrecognize d section and content) In the event this informatio n is protected by the Federal Confidentiality of Alcohol and Drug Abuse Patient Records regulations: The Federal rules restrict any use of the information to criminally investigate or prosecute any alcohol or drug abuse patient.[facility] the event this information is protected by the Federal Confidentiality of Alcohol and Drug Abuse Patient Records regulations: The Federal rules restrict any use of the information to criminally investigate or prosecute any alcohol or drug abuse patient.[facility] the event this information is protected by the Federal Confidentiality of Alcohol and Drug Abuse Patient Records regulations: The Federal rules restrict any use of the information to criminally investigate or prosecute any alcohol or drug abuse patient.[facility] Reason for Visit (unrecogniz ed section and content) Reason Comments Received Outside Medical Records Care Teams (unrecognized sec tion and content) [employer] Group Leader Relationship Specialty Start Date End Date Joelle Stern MD PCP - General Internal Medicine 12/10/21 [employer] Group Leader Relationship Specialty Start Date End Date Joelle Stern MD PCP - General Internal Medicine 12/10/21 (unrecognized sect ion and content) No Status Records FoundNo Status Records Found INFORMATION SOURCE (unrecogn ized section and content) DATE CREATED AUTHOR AUTHOR'S ORGANIZ ATION 05/03/2023 [facility] FOR RECORDS PERTAINING TO PATIENTS WHO [...] BE BASED ON THE PRIMARY CLINICAL RECORDS. [facility]. provides no warranty or guarantee of the accuracy or completeness of information in this document.
--- NOTE | 2023-12-23 13:49 | DCINST_ITS ---
Discharge Instructions Diet Discharge Diet: No restrictions Follow Up Care Test Results: Test results from this visit will be discussed in further detail at your follow- up appointment, if applicable. Discharge Plan Admission Admit Date/Time: 12/23/23 10:11 Primary Reason for Your Visit: toxic encephalopathy Attending Provider: Ryley Osuna Primary Care Provider: Joelle Stern Discharge Orders/Prescriptions Prescriptions: New acetaminophen 500 mg Tablet 1,000 mg PO Q8 Qty: 0 0RF Continued rosuvastatin 20 mg tablet 20 mg PO DAILY Patient Comments: take 1 tablet by mouth every morning Eliquis 2.5 mg tablet 2.5 mg PO BID Hold Instructions: Resume on 01/18/23. Patient Comments: take 1 tablet by mouth twice a day folic acid 1 mg Tablet 1 mg PO BID vitamin B complex Capsule 1 cap PO BID polyethylene glycol 3350 [Miralax] 17 gram/dose powder 17 g PO DAILY PRN (Reason: constipation) furosemide [Lasix] 40 mg tablet 40 mg PO MOWEFR Held duloxetine 30 mg capsule,delayed release(DR/EC) 30 mg PO BID Hold Instructions: Resume on 12/25/23. Discontinued zolpidem 12.5 mg tablet,ext release multiphase 12.5 mg PO QHS Patient Comments: take 1 tablet by mouth at bedtime if needed baclofen 5 mg tablet 5 mg PO TID PRN (Reason: muscle spasm) 5 Days Qty: 15 0RF oxycodone-acetaminophen 5-325 mg tablet 1 tab PO TID PRN (Reason: ACUTE PAIN) Patient Comments: take 1 tablet by mouth three times a day if needed for ACUTE PAIN Referrals / Follow Up: Joelle Stern MD [Primary Care Provider] - Within 2 Weeks Disposition Disposition (needs filled in before D/C Order can be placed): Home, Self Care
[2023-12-23] MEDS: Acetaminophen 500 MG Tablet 1000 MG PO ×2 (13:50→21:38)
[2023-12-23] MEDS: 0.9% Saline Lock 10 ML Syringe IV (14:57)
[2023-12-23] MEDS: 0.9% Normal Saline (1000mL) 1,000 ML 150 ML IV (14:57)
[2023-12-23 16:18] LABS: Troponin-I HS 81 pg/mL (3.0-78.0)
--- NOTE | 2023-12-23 17:06 | NURSING ---
Pt called to complain of chest pain around 1530. This RN obtained vital signs, which were normal. Pt was SOB so oxygen was applied for comfort. Smile was equal, hand manager of digital and pedal push even and strong. This RN notified Dr Osuna of chest pain complaints. Dr Osuna ordered a stat EKG and troponin series. EKG showed afib and LBBB. Troponin result was 81. Dr Osuna ordered a transfer to PCU. Pt was transferred by this RN and Valorie GOLD
--- NOTE | 2023-12-23 17:39 | ECHOD_ITS ---
Reason For Study: Chest pain Procedure This was a 2D Doppler, Color Flow transthoracic echocardiogram. Exam performed portable in patient room. Left Ventricle Normal LV size. Severe concentric left ventricular hypertrophy. Apical false tendon noted. Severe global left ventricular systolic dysfunction. Diastolic function is indeterminate. The left ventricular ejection fraction is 25 %. Right Ventricle Normal RV size. Mild to moderate global right ventricular systolic dysfunction. Atria There is moderate biatrial dilatation. Mitral Valve Mitral valve leaflet thickening. 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 Tricuspid Valve Mild to moderate (1-2+) tricuspid valve insufficiency. Right ventricular systolic pressure estimated to be 50 mmHg. Aortic Valve Trisinus/trileaflet aortic valve. Aortic sclerosis, no stenosis. Pulmonic Valve The pulmonic valve is not well visualized. Great Vessels Normal sized aortic root. Pericardium/Pleural Small pericardial effusion. Small left pleural effusion. MMode/2D Measurements & Calculations LVIDd: 4.4 cm IVSd: 1.7 cm Ao root diam: 3.5 cm LVIDs: 3.6 cm LVPWd: 2.1 cm RVDd: 3.8 cm FS: 18.9 % LAV(MOD-bp): 64.5 ml LVAd ap4: 33.4 cm2 LVAd ap2: 29.8 cm2 LAV(MOD-bp) Indexed: 31.9 ml/m2 LVLd ap4: 8.4 cm LVLd ap2: 8.4 cm LAV(MOD-sp2): 75.9 ml EDV(MOD-sp4): 109.5 ml EDV(MOD-sp2): 86.1 ml LAV(MOD-sp4): 56.2 ml EDV(sp4-el): 113.0 ml EDV(sp2-el): 89.9 ml LVAs ap4: 26.2 cm2 LVAs ap2: 24.4 cm2 LVLs ap4: 8.4 cm LVLs ap2: 8.5 cm ESV(MOD-sp4): 66.9 ml ESV(MOD-sp2): 58.2 ml ESV(sp4-el): 69.3 ml ESV(sp2-el): 59.4 ml EF(MOD-sp4): 38.9 % EF(MOD-sp2): 32.4 % EF(sp4-el): 38.7 % SV(MOD-sp4): 42.6 ml SV(MOD-sp2): 27.9 ml SV(sp4-el): 43.7 ml LA dimension(2D): 4.5 cm LA A4 area: 19.6 cm2 RA A4 area: 21.3 cm2 TAPSE: 1.6 cm Doppler Measurements & Calculations MV E max sameer: 108.5 cm/sec Lat Peak E' Sameer: 8.0 cm/sec Med Peak E' Sameer: 5.8 cm/sec E/E' lat: 13.5 E/E' med: 18.7 Ao V2 max: 107.5 cm/sec AI max sameer: 368.5 cm/sec LV V1 max: 87.7 cm/sec Ao max P.7 mmHg AI max P.3 mmHg LV V1 max P.1 mmHg Ao V2 mean: 78.6 cm/sec AI dec slope: 156.9 cm/sec2 LV V1 mean P.6 mmHg Ao mean P.8 mmHg AI P1/2t: 687.9 msec LV V1 mean: 57.1 cm/sec Ao V2 VTI: 20.8 cm LV V1 VTI: 15.9 cm AV (velocity ratio): 0.76 PA V2 max: 66.0 cm/sec TR max sameer: 317.6 cm/sec TR max P.3 mmHg ECHO/Echo Complete Interpretation Summary Severe concentric left ventricular hypertrophy. The left ventricular ejection fraction is 25 %. Diastolic function is indeterminate. There is moderate biatrial dilatation. 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 Right ventricular systolic pressure estimated to be 50 mmHg. Small pericardial effusion. Ordering Physician: Ryley Osuna Referring Physician: Joelle Stern M.D. Performed By: April Kelly RDCS
[2023-12-23] MEDS: Folic Acid 1 MG Tablet PO (17:52)
[2023-12-23 18:03] LABS: Troponin-I HS 81 pg/mL (3.0-78.0)
[2023-12-23] MEDS: Atorvastatin Calcium 40 MG Tablet PO (21:38)
[2023-12-23] MEDS: APIXABAN 2.5 MG TABLET (WCH) PO (21:52)
[2023-12-23] MEDS: Ibuprofen 600 MG Tablet PO (22:11)
[2023-12-23 23:13] LABS: Troponin-I HS 75 pg/mL (3.0-78.0)
[2023-12-24 03:13] VITALS: BP 94/81; PULSE 85; RESP 16; TEMP 36.7; O2SAT 97
[2023-12-24] MEDS: Ibuprofen 600 MG Tablet PO ×3 (06:02→20:28)
[2023-12-24] MEDS: Acetaminophen 500 MG Tablet 1000 MG PO ×3 (06:09→20:27)
[2023-12-24 07:52] LABS: Cholesterol 160 mg/dL (200); High Density Lipoprotein 67 mg/dL; Triglycerides 61 mg/dL; Very Low Density Lipoprotein 12 mg/dL (5-40)
--- NOTE | 2023-12-24 08:04 | PN.HOSP_ITS ---
Reason for Visit Reason for Visit: Diagnoses Unspecified toxic encephalopathy (12/23/23) Subjective Subjective Feels better. States his neck creaks when he turns his head. Not had this problem before. Stated that when he fell that led to his T12 compression fracture, he was slipping on ice. Did not hit his head, however. Objective Data Objective Data Vital Signs: Vital Signs Temp Pulse Resp BP Pulse Ox O2 Del Method 36.7 C 85 16 94/81 H 97 Room Air 12/24/23 03:13 12/24/23 03:13 12/24/23 03:13 12/24/23 03:13 12/24/23 03:13 12/24/23 03:56 Oxygen Delivery Method Room Air Weight: 82.157 kg Body Mass Index (BMI) 25.2 Intake & Output: Intake and Output for Last 24 Hours 12/22/23 12/23/23 12/24/23 23:59 23:59 23:59 Intake Total 1100 / 1100 60 / 60 Balance 1100 / 1100 60 / 60 Lab / Micro Data 12/23/23 03:51 12/23/23 03:51 Labs: Laboratory Results - last 24 hr 12/23/23 09:10: Troponin I High Sens 68 12/23/23 15:55: Troponin I High Sens 81 H 12/23/23 17:30: Troponin I High Sens 81 H 12/23/23 22:20: Troponin I High Sens 75 12/24/23 05:54: Triglycerides 61, Cholesterol 160, LDL Cholesterol 81, VLDL Cholesterol 12, HDL Cholesterol 67 Physical Exam Const alert and oriented x3 Constitutional Narrative: Now able to tell me the date correctly. No further perseveration on statements or words. HEENT head/scalp atraumatic and moist oral mucous membranes Resp normal respiratory effort and no retractions Cardio regular rate, regular rhythm, S1 normal heart sound and S2 normal heart sound GI normal to inspection, nondistended, normoactive bowel sounds, soft to palpation and non-tender Assessment & Plan Assessment/Plan (1) Toxic encephalopathy: PLAN: Plan Toxic cephalopathy * Resolved * secondary to Percocet and baclofen. Patient may have taken excess medications sometime last night. * Patient did not need any reversal agents * Patient has no focal deficits so do not feel any additional imaging and workup is necessary at this time. T12 compression fracture * Subsequent visit. Patient will follow-up pain management as outpatient. Pain control with acetaminophen and ibuprofen. Avoid narcotics as well as other potentiating agents at this time. * He states he has been hearing creaking in his neck. Will check an x-ray of the cervical spine. Total time anticipating for any abnormality. I think the creaking is more related probably to arthritis. Elevated troponins * Patient did complain of chest pain on the third. * Unclear significance. Chronically elevated and may be skewed upwards given the patient's chronic kidney disease. * Patient had been transferred to the progressive care unit. Will check echo. If echo shows wall motion abnormality, may need additional workup including stress test or cardiology consult. Dysphagia * Patient was seen by speech therapy and had some concerns and they reevaluated him today and is concerning for swallowing and recommending patient be n.p.o. and have a modified barium swallow performed on the fifth. * Will give the patient 75 cc of IV fluid until his diet can be resumed. Chronic conditions * Atrial flutter: Continue with apixaban * Chronic kidney stage IIIb: Stable. * Depression duloxetine currently on hold given encephalopathy. * Hyperlipidemia: Statin VTE prophylaxis: Not indicated as patient is already anticoagulated Charges/Coding Visit Charges Inpatient E&M: 58261 Subs Hosp L2
[2023-12-24 10:11] VITALS: BP 120/85; PULSE 81; RESP 16; TEMP 36.6; O2SAT 96
[2023-12-24] MEDS: Folic Acid 1 MG Tablet PO ×2 (10:34→15:58)
[2023-12-24] MEDS: APIXABAN 2.5 MG TABLET (WCH) PO ×2 (10:34→20:29)
--- NOTE | 2023-12-24 12:22 | RAD_ITS ---
EXAM: XR CERVICAL SPINE, 2 OR 3 VIEWS CLINICAL INDICATION: neck ache after fall. TECHNIQUE: Frontal and lateral views of the cervical spine. COMPARISON: No relevant prior studies available. FINDINGS: VERTEBRAE: Loss of the normal cervical lordosis which may be due to muscle spasm or head positioning. No acute fracture or subluxation. Multilevel disc space narrowing and vertebral body osteophytosis noted most prominent at C5-6 and C6-7. Multilevel facet arthropathy. DISC SPACES: See above. SOFT TISSUES: Normal. No prevertebral soft tissue widening. LUNG APICES: Clear. RAD/Cerv Spine 2 or 3 Views IMPRESSION: No discrete fracture or subluxation identified. Prominent diffuse spondylosis. Electronically Signed: aSw Colunga MD at 13:17 EST ,
[2023-12-24] MEDS: 0.9% Normal Saline (1000mL) 1,000 ML 75 ML IV (14:15)
[2023-12-24 15:54] VITALS: BP 116/80; PULSE 81; RESP 16; TEMP 37.1; O2SAT 99
[2023-12-24] MEDS: Atorvastatin Calcium 40 MG Tablet PO (20:27)
[2023-12-24 20:32] VITALS: BP 128/94; PULSE 85; RESP 16; TEMP 36.6; O2SAT 97
[2023-12-25] MEDS: 0.9% Normal Saline (1000mL) 1,000 ML 75 ML IV (02:58)
[2023-12-25 03:33] VITALS: BP 126/82; PULSE 79; RESP 14; TEMP 36.8; O2SAT 97
[2023-12-25] MEDS: Acetaminophen 500 MG Tablet 1000 MG PO ×3 (05:53→21:36)
[2023-12-25 09:15] VITALS: BP 128/89; PULSE 85; RESP 18; TEMP 36.6; O2SAT 96
[2023-12-25] MEDS: Folic Acid 1 MG Tablet PO ×2 (09:26→15:27)
[2023-12-25] MEDS: APIXABAN 2.5 MG TABLET (WCH) PO ×2 (09:26→21:37)
--- NOTE | 2023-12-25 09:38 | PN.HOSP_ITS ---
Reason for Visit Reason for Visit: Diagnoses Unspecified toxic encephalopathy (12/23/23) Subjective Subjective Patient notes feeling improved since his initial presentation moving about the room with improved lumbar back pain. He is also more alert and with it and answering questions appropriately with encephalopathy resolved. Plan of care with echocardiogram obtained as well as modified barium swallow study. Barium swallow study was unremarkable and patient resumed an appropriate diet. Echocardiogram unfortunately had significantly reduced EF from previously and valvular changes thus cardiology was involved and evaluated patient with medication changes. Patient denies any significant weight gain, edema, orthopnea, ongoing chest discomfort or dyspnea. Objective Data Objective Data Vital Signs: Vital Signs Temp Pulse Resp BP Pulse Ox O2 Del Method 97.9 F 85 18 128/89 H 96 Room Air 12/25/23 09:15 12/25/23 09:15 12/25/23 09:15 12/25/23 09:15 12/25/23 09:15 12/25/23 09:15 Oxygen Delivery Method Room Air Weight: 181 lb 2 oz Body Mass Index (BMI) 25.2 Intake & Output: Intake and Output for Last 24 Hours 12/23/23 12/24/23 12/25/23 23:59 23:59 23:59 Intake Total 1100 / 1100 180 / 180 1013.75 / 1013.75 Balance 1100 / 1100 180 / 180 1013.75 / 1013.75 Lab / Micro Data 12/25/23 10:39 12/25/23 10:39 Radiography Diagnostic Testing: Radiology Impression Cervical Spine X-Ray 12/24/23 12:22 IMPRESSION: No discrete fracture or subluxation identified. Prominent diffuse spondylosis. Electronically Signed: Saw Colunga MD at 13:17 EST , Physical Exam Narrative Physical Examination: General: Awake, alert, oriented x 3 and cooperative, seated upright in the PCU bed in no apparent distress. Skin: Normal color, normal turgor, no icterus, no cyanosis except occasional staged ecchymoses. HEENT: AT/NC, EOMI, PERRLA, MMM. Lungs: Mildly diminished, greater bases, appropriate effort, no rales, ronchi or wheezing. Heart: Regular rate and rhythm; no gallop, rub audible. Abdomen: Soft, NTTP, ND, normal BS. Extremities: No cyanosis, no clubbing, no marked peripheral pitting edema noted. Neurological: Patient awake, alert, oriented as noted, cognitive function intact; pupils equally reactive to light and accommodation, cranial nerves II- XII grossly normal, moving all 4 extremities although somewhat limited secondary to recent fall with T12 compression fracture, no focal deficits, strength impro ving, moderately global decreased. Psychiatric: Affect appears mildly fatigued otherwise improving, normal, no acute evidence of depressive or anxiety feelings. Assessment & Plan Assessment/Plan (1) Toxic encephalopathy: PLAN: Plan The patient is an 82 y/o M w/ PMHx: PAFlutter, Depression and Anxiety, MIKY, HFrEF/Nonischemic cardiomyopathy, HTN, HLD, PAF, Hx Prostate CA s/p prostate surgery, CKD stage III unclear subtype, Symptomatic bradycardia s/p pacemaker status who presents to the [facility] ED on 12/23/23 with history of confusion with recent prescription started for Percocet as well as baclofen secondary to fall with T12 compression fracture evaluated by ER as well as pain management with concern for inadvertently taking too much with workup including brain MRI that was unremarkable prompting eventual admission. #1. Suspected toxic encephalopathy: CT brain with age-related changes with no acute intracranial findings obtained in the ED. Patient with suspected potential inadvertent overdose of Percocet and baclofen, admitted, held these medications, maintain on fall precautions, no focal presentation and recent outpatient evaluation with MRI unremarkable, maintain on fall precaution, PT/OT for discharge planning. #2. Recent mechanical fall with T12 compression fracture: Encourage continued outpatient follow-up with pain management, encouraged usage of rotating acetaminophen and ibuprofen, given reaction with confusion potentially related with these recent sedated medications encourage avoidance of Percocet or baclofen or potentially reduced intake. 12/24/2019 for concern for mild abnormal cracking when he turns his head, cervical spine plain films with no discrete fracture or subluxation, prominent diffuse spondylosis. #3. HFrEF/nonischemic cardiomyopathy w/ Worsened EF, Valvular Disease, Small pericardial effusion with Hx Sick Sinus Syndrome: Upon presentation noted to be on Eliquis, statin, not on beta pilar with history of symptomatic bradycardia requiring pacemaker, not on ACEI/ARB upon presentation and on MWF lasix only. Lasix held because of lower BP during presentation. ECHO with noted concentric left ventricular hypertrophy, EF 25 %, diastolic function indeterminate, moderate biatrial dilatation, moderately severe (3+) eccentric mitral valve insufficiency, RSVP 50 mmHg, small pericardial effusion. Given ECHO changes as noted with notably reduced EF cardiology consulted, added low dose spironolactone, low dose metoprolol succinate and lasix discontinued. We have recommended follow-up at discharge with your cardiology service and they note intention for possibly addition of ARB on an outpatient bases depending on your re-evaluation. Cardiology also requested that you take your daily weight and if you increase by > 5 lbs they recommend usage of lasix 40 mg po PRN weight gain > 5 lbs but at the same time you should notify your cardiology office if this is the case. #4. Recent history of chest discomfort with mildly elevated troponins, unclear significance, possibly related with underlying renal disease: Patient with complaint of chest discomfort 12/23/2023 however had recent fall, troponin initially 68 with repeat 81-> 81-> now 75 most recently 12/23/2023, EKGs with no acute concerning findings, echocardiogram obtained as noted, continued on Eliquis low-dose, Lipitor, lasix d/c as noted, added spironolactone low dose per Cardiology recommendation, added metoprolol succinate low dose per Cardiology recommendation. #5. Dysphagia: By ST with recommendation for follow-up swallow evaluation study. 12/25/2023 swallow testing with no concerning findings texture and thin liquids with advice of small bites, small sips, slow rate, alternating bites/solids and sips/liquids, sitting upright, remaining upright for 30 minutes after oral intake with recommended speech therapy evaluation and treatment which will be arranged outpatient. #6. Chronic Kidney Disease Stage III, unclear subtype: Admission BUN/Cr 41/1.90, baseline renal function 1.6-1.8, repeat BMP in AM. #7. Hypertension: Given low BP upon presentation patient Lasix held; however discussion with Cardiology given worsening EF and noted patient BP range should be systolic 90-100 and given ECHO changes as noted with notably reduced EF cardiology consulted, added low dose spironolactone, low dose metoprolol succinate and lasix discontinued. Will plan usage of lasix PRN only for weight gain with parameters. #8. Hyperlipidemia: We will continue patient on statin therapy. #9. History of prostate cancer: Status post surgical prostate intervention, considered in remission, encourage continued outpatient follow-up with urology. #10. Anxiety and depression: We will continue patient home duloxetine regimen. #11. PAFlutter: Noted in history, s/p pacemaker placement, will continue home eliquis regimen, not on rate/rhythm agent. #12. MIKY: CPAP nightly if amenable. #13. DVT prophylaxis: SCDs, heparin chemoprophylaxis only. #14. CODE status: Full Code. Charges/Coding Visit Charges Inpatient E&M: 81026 Subs Hosp L3
[2023-12-25] MEDS: DULoxetine Hcl 30 MG Capsule PO ×2 (10:33→21:37)
[2023-12-25 10:54] LABS: Absolute Lymphocyte Count 2.04 X10^3/uL (0.83-4.51); Absolute Neutrophil Count 8.7 X10^3/uL (2.0-7.7); Basophil# 0.09 X10^3/uL; Basophil% 0.7 % (0-1); Eosinophil# 0.08 X10^3/uL; Eosinophils% 0.7 % (0-5); Hematocrit 47.8 % (40-54); Hemoglobin 14.7 g/dL (13.0-16.5); Lymphocyte # 2.04 X10^3/ul (0.83-4.51); Mean Corp Hgb Conc 30.8 g/dL (32-36); Mean Corpuscular Hgb 29.5 pg (27.0-32.0); Mean Corpuscular Volume 95.8 fL (80-94); Mean Platelet Vol. 11.2 fl (6.2-12.0); Monocyte# 1.09 X10^3/uL; Monocyte% 9.1 % (0-10); NRBC Flagged by Analyzer 0.2 % (0-5); Neutrophil # 8.69 X10^3/uL (2.7-7.7); Neutrophil % 72.2 % (47-70); Platelet Count 228 K/mm3 (150-450); RBC Distribution Width CV 13.8 % (11.6-14.6); RBC Distribution Width SD 48.4 fl (35.1-43.9); Red Blood Count 4.99 M/mm3 (4.6-6.2)
--- NOTE | 2023-12-25 10:57 | CASEMGMT ---
Met with patient to complete RICH form. RICH form explained to patient who voiced understanding and signed form. Original form placed in pt?s chart and copy provided to?patient. Kirstie Shen, Discharge Planning Asst
[2023-12-25 11:13] LABS: Magnesium 2.5 mg/dL (1.6-2.6)
[2023-12-25 11:19] LABS: ALB/GLOB Ratio 0.7 RATIO (0.9-2.4); AST(SGOT) 28 U/L (15-37); Alanine Aminotransfer ALT/SGPT 23 U/L (16-61); Albumin, Serum 3.1 g/dL (3.2-5.0); Alkaline Phosphatase 141 U/L (45-117); Anion Gap 9 (5-15); BUN 45 mg/dL (7-18); Calcium,Total 8.6 mg/dL (8.5-10.1); Chloride 111 mmol/L (98-107); EST Glomerular Filtration Rate 38 mL/min (>60); Est Glom Filt Rate - Afr Amer 47 mL/min (>60); Estimated Creatinine Clearance 33.12 ml/min; Globulin 4.2 g/dL (2.2-4.2); Glucose 89 mg/dL (74-106); Potassium 4.3 mmol/L (3.5-5.1); Protein, Total 7.3 g/dL (6.4-8.2); Sodium Level 139 mmol/L (136-145)
--- NOTE | 2023-12-25 11:36 | CASEMGMT ---
Discharge Planning A list of?HH providers including quality and resource use data and consistent with the patient's preferred geographic region, medical needs, and insurance network was created in [facility] Guide.? This list was provided to the RN SHAILESH. Kirstie Shen, Discharge Planning Asst.
--- NOTE | 2023-12-25 12:04 | CASEMGMT ---
Addendum entered by Colby Torres 12/25/23 15:59: [facility] Accepts the pt and SOC is Monday. Addendum entered by Colby Torres 12/25/23 15:45: Dr. Nath states the pt will need ST added to C. Pt chooses 1.) [facility] 2.) [facility] 3.) [facility]. Referral called to [facility] at this time for PT, OT, and ST. Awaiting return call. [facility] [place] [facility] at this time. Original Note: Verbal list of local in network DME companies provided to the pt. Pt chooses [employer] for a walker. Pt states that he feels safe DC home with HHC. Pt denies needing SN but states he would like PT and OT to be set up. List of local in network [facility] agencies (printed by the [employer]) provided to the pt at this time. Will follow for pt choices.
--- NOTE | 2023-12-25 13:55 | ST.MBS ---
Modified Barium Swallow Patient Information Study Date: 12/25/23 Study Time: 12:40 Direct Billable Minutes: 105 Total Minutes procedure & reportin Diagnosis: Toxic Ecephalopathy G92.9 Referring Physician: Fabiola Nath Reason for Referral: Objectively assess swallow function, assess risk for aspiration, and determine recommendations for least restrictive diet textures and compensatory strategies to improve safety of swallow. Medical History: PMH: Atrial flutter stage III CKD (chronic kidney disease), Depression, Dyspnea, HFrEF (heart failure with reduced ejection fraction), HTN (hypertension), Hyperkalemia, Hyperlipidemia, Left bundle branch block (LBBB), Left ventricular diastolic dysfunction, LVH (left ventricular hypertrophy), Non-ischemic cardiomyopathy, Obstructive sleep apnea, Prostate cancer.? Patient presented to [facility] ED on 12/23/2023 with confusion. Patient recently sustained a T12 compression fracture. Patient may have taken too many of his medications prescribed for the compression fracture and became confused. Patient underwent brain MRI workup that was deemed unremarkable. [employer] reported that patient vomited water during a BSE and ordered an MBS study to determine if aspiration is present.? Current Diet Ordered: NPO Dentition: Upper Dentures and Lower Dentures Mental Status: WNL Respiratory Status: Oxygenating on Room Air Penetration-Aspiration Scale Penetration-Aspiration Scale: OBJECTIVE ASSESSMENT OF SWALLOW FUNCTION (QUANTITATIVE ? PER TRIAL): PENETRATION / ASPIRATION SCALE (DUGAN): 1 = does not enter airway 2 = enters airway/above vocal folds/ejected 3 = enters airway/above vocal folds/not ejected 4 = enters airway/contacts vocal folds/ejected 5 = enters airway/contacts vocal folds/not ejected 6 = enters airway/below vocal folds/ejected 7 = enters airway/below vocal folds/not ejected despite effort 8 = enters airway/below vocal folds/no effort VIDEOFLOROSCOPIC SCALE SCORE (DUGAN): Grade I = aspiration of material that has penetrated into the laryngeal vestibule, intact cough reflex Grade II = aspiration < 10 % of the bolus, intact cough reflex Grade III = aspiration of < 10 % of the bolus, reduced cough reflex or aspiration of > 10 % of the bolus, intact cough reflex Grade IV = aspiration of > 10 % of the bolus, reduced cough reflex Penetration-Aspiration Scale Score Thin Liquid via teaspoon: Result: 3= enters airways/above vocal folds/not ejected Thin Liquid via teaspoon Trial 2: Result: 1= does not enter airway Thin Liquid via large single sip: cup: Result: 2= enter airway/above vocal folds/ejected Thin Liquid via sequential sips: cup: Result: 1= does not enter airway Phillips Thick Liquid via large single sip: cup: Result: 1= does not enter airway Pudding via teaspoon: Result: 1= does not enter airway 1/2 Cookie: Result: 1= does not enter airway Thin Liquid via single sip: straw: Result: 1= does not enter airway Oral Phase Labial Seal: Interlabial escape, no progression to anterior lip Tongue Control During Bolus Hold: Posterior escape of less than half of bolus Bolus Preparation/Mastication: Timely and efficient chewing and mashing Bolus Transport/Lingual Motion: Repetitive/disorganized tongue motion Oral Residue: Residue collection on oral structures (piecemeal pudding and cookie) Pharyngeal Phase Initiation of Pharyngeal Swallow: Bolus head in pyriforms Soft Palate Elevation: Trace column of contrast/air between soft palate and pharyngeal wall Laryngeal Elevation: Partial superior movement thyroid cart/partial apprx aryt-epig petiole Anterior Hyoid Excursion: Partial anterior movement Epiglottic Movement: Complete inversion Laryngeal Vestibule Closure at Height of Swallow: Incomplete; narrow column of air/contrast in laryngeal vestibule Pharyngeal Stripping Wave: Present - diminished Pharyngoesophageal Segment Opening: Complete distension and complete duration; no obstruction of flow Tongue Base Retraction: Trace column of contrast between tongue base & post. pharyngeal wall Pharyngeal Residue: Trace residue within or on pharyngeal structures Esophageal Phase Esophageal Clearance: Esophageal retention Diagnosis/Impression Diagnosis: Mild Oropharyngeal Dysphagia R13.12 Impression: The oral phase is primarily marked by... -Decreased bolus control with <1/2 of the bolus spilling posteriorly to the pyriforms prior to swallow onset observed with thin liquids especially. -Lingual pumping motion for A-P transport -Some oral residue after the swallow, which mostly cleared with independent initiation of multiple swallows. The pharyngeal phase is primarily marked by... -Mildly decreased airway closure during the swallow due to partial anterior hyoid excursion, and decreased laryngeal elevation. -Mildly decreased tongue base retraction and diminished pharyngeal stripping wave with resulting in trace pharyngeal residues after the swallow. -Two instances of laryngeal penetration across thin liquid consistencies, which ejected from the laryngeal vestibule with subsequent swallows. The esophageal phase is primarily marked by... -Mild esophageal retention of pudding and shortbread cookie in mid esophagus. This esophageal retention had minimally improved clearance when provided thin liquid wash. Recommendations Diet: Regular Textures and Thin Liquids Compensatory Strategies: Small Bites, Small Sips, Slow Rate, Alternate bites/solids and sips/liquids, Sitting upright and Remain sitting upright for 30 minutes after PO intake Supervision: Distant Supervision Recommend Repeat Modified Barium Swallow: No Need for Skilled Speech Therapy Services: Yes Comment: ST will follow for diet tolerance and train patient in recommended diet textures and compensatory strategies. Education Completed: 1. Described result of evaluation. and 2. Pt understands evaluation & agrees with goals and treatment plan. Status Active ST Patient: Active Contact Information [facility] Speech Therapy:: Agatha Conner M.A. [employer]? Speech-Language Pathologist?? [facility] [address]?? [place] [address]?? [email or web address] [phone]??
--- NOTE | 2023-12-25 15:35 | PCM.DC ---
Discharge Instructions Diet Discharge Diet: Low fat / Low cholesterol Activity Discharge Activity: - (Encouraged continued device assist, maintain fall precautions, increase activity as able with PT/OT clearance.) May resume sexual activity in: - (Recommend clearance per primary care and therapies prior.) Weight Bearing Status: Weight bearing as tolerated Dressing / Incision Call your doctor if you observe: Fever of 101 or Higher, Numbness or Tingling, Inability to urinate, Shortness of breath, Dizziness, Swelling in the ankles, Chest pain, Increased palpitations (irregular heartbeat), Calf discomfort and Uncontrolled pain Follow Up Care Test Results: Test results from this visit will be discussed in further detail at your follow-up appointment, if applicable. Discharge Plan Admission Admit Date/Time: 12/23/23 10:11 Primary Reason for Your Visit: Toxic Encephalopathy, Dysphagia, Abnormal troponin, Fall w/ T12 comp Fx Attending Provider: Fabiola Nath Primary Care Provider: Joelle Stern Consulting Providers: Ryley Osuna Instructions Additional Instructions / Restrictions: EVALUATED DURING ADMISSION: #1. Suspected toxic encephalopathy: CT brain with age-related changes with no acute intracranial findings obtained in the ED. Suspected potential inadvertent overdose of Percocet and baclofen which was held with noted. Recommend continued alternating Tylenol and ibuprofen. Take the ibuprofen with food and not taken for prolonged period. #2. Recent mechanical fall with T12 compression fracture: Encourage continued outpatient follow-up with pain management, encouraged usage of rotating acetaminophen and ibuprofen of course taking ibuprofen with food and avoid prolonged usage. Plain film of the cervical spine with no acute findings also. #3. Chest discomfort with mildly elevated troponins, unclear significance: EKG with no acute concerning findings, cardiac enzymes obtained initially 68 with repeat 81-> 81-> 75 most recently 12/23/2023, echocardiogram ordered. Maintained on Eliquis, statin, not on beta pilar with history of symptomatic bradycardia requiring pacemaker, not on ACEI/ARB. We have recommended follow-up at discharge with your cardiology service. #4. Oropharyngeal Dysphagia: Speech therapy with recommendation for follow-up swallow evaluation study. 12/25/2023 swallow testing with no concerning findings texture and thin liquids with advice of small bites, small sips, slow rate, alternating bites/solids and sips/liquids, sitting upright, remaining upright for 30 minutes after oral intake with recommended speech therapy evaluation and treatment which will be arranged outpatient. #5. HFrEF/nonischemic cardiomyopathy with Hx Sick Sinus Syndrome: During admission you were maintained on your home low-dose Eliquis, statin. Your blood pressure was low normal test Lasix was temporarily held and upon resumption started at a lower dose of 20 mg with plan continuation of the same dose Monday with hold parameters on prescription. We recommended also that if recurrent hold necessary because of blood pressures that cardiology and primary care be contacted and updated. Discharge Orders/Prescriptions Prescriptions: New acetaminophen 500 mg Tablet 1,000 mg PO Q8 Qty: 0 0RF furosemide [Lasix] 20 mg tablet 20 mg PO MOWEFR 30 Days Qty: 13 0RF Rx Instructions: PLEASE HOLD LASIX IF BLOOD PRESSURE PRIOR TO TAKING < 110 SYSTOLIC. IF ROUTINELY LOW AND UNABLE TO TAKE NOTIFY YOUR BUSINESS ANALYST [employer]. Continued rosuvastatin 20 mg tablet 20 mg PO DAILY Patient Comments: take 1 tablet by mouth every morning Eliquis 2.5 mg tablet 2.5 mg PO BID Hold Instructions: Resume on 01/18/23. Patient Comments: take 1 tablet by mouth twice a day folic acid 1 mg Tablet 1 mg PO BID vitamin B complex Capsule 1 cap PO BID duloxetine 30 mg capsule,delayed release(DR/EC) 30 mg PO BID Hold Instructions: Resume on 12/25/23. polyethylene glycol 3350 [Miralax] 17 gram/dose powder 17 g PO DAILY PRN (Reason: constipation) Discontinued zolpidem 12.5 mg tablet,ext release multiphase 12.5 mg PO QHS Patient Comments: take 1 tablet by mouth at bedtime if needed baclofen 5 mg tablet 5 mg PO TID PRN (Reason: muscle spasm) 5 Days Qty: 15 0RF oxycodone-acetaminophen 5-325 mg tablet 1 tab PO TID PRN (Reason: ACUTE PAIN) Patient Comments: take 1 tablet by mouth three times a day if needed for ACUTE PAIN furosemide [Lasix] 40 mg tablet 40 mg PO MOWEFR Referrals / Follow Up: Damion Vu MD [Med Staff - Active Staff] - (Please follow-up within 1-2 weeks, may see Cardiology HUMAN RESOURCES EXECUTIVE ASSISTANT to review recent admission, mildly elevated troponin.) Joelle Stern MD [Primary Care Provider] - See Referral Note (Please follow-up within 3-5 days to review admission. Please review admission and changes to your medications.) Disposition Disposition (needs filled in before D/C Order can be placed): Home Health Service
--- NOTE | 2023-12-25 15:38 | PCM.DC.SUM ---
Providers Date of Admission: 12/23/23 Primary Care Physician: Dr. Joelle Stern MD Reason For Visit: ENCEPHALOPATHY Diagnosis Discharge Diagnosis (1) Toxic encephalopathy: Status: Acute Code(s): G92.9 - Unspecified toxic encephalopathy Plan The patient is an 82 y/o M w/ PMHx: PAFlutter, Depression and Anxiety, MIKY, HFrEF/Nonischemic cardiomyopathy, HTN, HLD, PAF, Hx Prostate CA s/p prostate surgery, CKD stage III unclear subtype, Symptomatic bradycardia s/p pacemaker status who presents to the [facility] ED on 12/23/23 with history of confusion with recent prescription started for Percocet as well as baclofen secondary to fall with T12 compression fracture evaluated by ER as well as pain management with concern for inadvertently taking too much with workup including brain MRI that was unremarkable prompting eventual admission. #1. Suspected toxic encephalopathy: CT brain with age-related changes with no acute intracranial findings obtained in the ED. Patient with suspected potential inadvertent overdose of Percocet and baclofen, admitted, held these medications, maintain on fall precautions, no focal presentation and recent outpatient evaluation with MRI unremarkable, maintain on fall precaution, PT/OT for discharge planning. #2. Recent mechanical fall with T12 compression fracture: Encourage continued outpatient follow-up with pain management, encouraged usage of rotating acetaminophen and ibuprofen, given reaction with confusion potentially related with these recent sedated medications encourage avoidance of Percocet or baclofen or potentially reduced intake. 12/24/2019 for concern for mild abnormal cracking when he turns his head, cervical spine plain films with no discrete fracture or subluxation, prominent diffuse spondylosis. #3. Recent history of chest discomfort with mildly elevated troponins, unclear significance, possibly related with underlying renal disease: Patient with complaint of chest discomfort 12/23/2023 however had recent fall, troponin initially 68 with repeat 81-> 81-> now 75 most recently 12/23/2023, EKGs with no acute concerning findings, echocardiogram ordered, continued on Eliquis low-dose, Lipitor, not on hypertensive regimen. #4. Dysphagia: By ST with recommendation for follow-up swallow evaluation study. 12/25/2023 swallow testing with no concerning findings texture and thin liquids with advice of small bites, small sips, slow rate, alternating bites/solids and sips/liquids, sitting upright, remaining upright for 30 minutes after oral intake with recommended speech therapy evaluation and treatment which will be arranged outpatient. #5. Chronic Kidney Disease Stage III, unclear subtype: Admission BUN/Cr 41/1.90, baseline renal function 1.6-1.8, repeat BMP in AM. #6. HFrEF/nonischemic cardiomyopathy with Hx Sick Sinus Syndrome: Given history of symptomatic bradycardia status post previous pacemaker placement, we will continue low-dose Eliquis, statin, not on hypertensive regimen with appropriate BP currently but normally on Monday Lasix, may need to add back but at a lower dose., repeat echocardiogram requested given #3, most recently noted echocardiogram prior to this 12/15/2022 with mild global LV systolic dysfunction, EF 50%, septal wall motion consistent with IVCD, severe concentric LVH, mildly enlarged LA, mild diffuse MV thickening, moderate MVI, mild diffuse thickening TV, mild TVI, mild focal AV calcification, trivial YADI, RVSP 23 mmHg, diastolic function indeterminate. #7. Hypertension: Given low BP upon presentation patient Lasix held, outpatient patient takes 40 mg p.o. Monday, Monday, Monday for fluid retention primarily, may need to consider adding back at a lower dose. #8. Hyperlipidemia: We will continue patient on statin therapy. #9. History of prostate cancer: Status post surgical prostate intervention, considered in remission, encourage continued outpatient follow-up with urology. #10. Anxiety and depression: We will continue patient home duloxetine regimen. #11. PAFlutter: Noted in history, s/p pacemaker placement, will continue home eliquis regimen, not on rate/rhythm agent. #12. MIKY: CPAP nightly if amenable. #13. DVT prophylaxis: SCDs, heparin chemoprophylaxis only. #14. CODE status: Full Code. Medications at Discharge Home Medications folic acid 1 mg tablet 1 mg PO BID supplement 10/11/21 vitamin B complex 1 cap PO BID vitamin 10/11/21 rosuvastatin 20 mg tablet 20 mg PO DAILY cholesterol 12/16/21 apixaban 2.5 mg tablet (Eliquis) 2.5 mg PO BID blood thinner 03/23/23 duloxetine 30 mg capsule,delayed release 30 mg PO BID DEPRESSION 12/15/23 acetaminophen 500 mg tablet 1,000 mg (2 x 500 mg) PO Q8 #0 tabs 12/23/23 polyethylene glycol 3350 17 gram/dose oral powder (Miralax) 17 g PO DAILY PRN constipation 12/23/23 furosemide 20 mg tablet (Lasix) 20 mg PO MOWEFR 30 days #13 tabs 12/25/23 Weight / BMI Weight Weight: 181 lb 2 oz Body Mass Index (BMI) 25.2 ABG / Lab / Microbiology Data 12/25/23 10:39 12/25/23 10:39 Laboratory: Laboratory Results - last 24 hr 12/25/23 10:39: WBC 12.0 H, RBC 4.99, Hgb 14.7, Hct 47.8, MCV 95.8 H, MCH 29.5, MCHC 30.8 L, RDW Std Deviation 48.4 H, RDW Coeff of [place] 13.8, Plt Count 228, MPV 11.2, Immature Gran % (Auto) 0.300, Neut % (Auto) 72.2 H, Lymph % (Auto) 17.0 L, [place] % (Auto) 9.1, Eos % (Auto) 0.7, Baso % (Auto) 0.7, Absolute Neuts (auto) 8.7 H, Absolute Lymphs (auto) 2.04, Nucleated RBC % 0.2, Sodium 139, Potassium 4.3, Chloride 111 H, Carbon Dioxide 19.0 L, Anion Gap 9, BUN 45 H, Creatinine 1.80 H, Estim Creat Clear Calc 33.12, Est GFR (MDRD) Af Amer 47 L, Est GFR (MDRD) Non-Af 38 L, BUN/Creatinine Ratio 25.0 H, Glucose 89, Calcium 8.6, Magnesium 2.5, Total Bilirubin 1.00, AST 28, ALT 23, Alkaline Phosphatase 141 H, Total Protein 7.3, Albumin 3.1 L, Globulin 4.2, Albumin/Globulin Ratio 0.7 L D/C Instructions Discharge Diet: Low fat / Low cholesterol May resume sexual activity in: - (Recommend clearance per primary care and therapies prior.) Weight Bearing Status: Weight bearing as tolerated Call your doctor if you observe: Fever of 101 or Higher, Numbness or Tingling, Inability to urinate, Shortness of breath, Dizziness, Swelling in the ankles, Chest pain, Increased palpitations (irregular heartbeat), Calf discomfort and Uncontrolled pain Discharge Plan Admission Admit Date/Time: 12/23/23 10:11 Primary Reason for Your Visit: Toxic Encephalopathy, Dysphagia, Abnormal troponin, Fall w/ T12 comp Fx Attending Provider: Fabiola Nath Primary Care Provider: Joelle Stern Consulting Providers: Ryley Osuna; Hitesh Esqueda Instructions Additional Instructions / Restrictions: EVALUATED DURING ADMISSION: #1. Suspected toxic encephalopathy: CT brain with age-related changes with no acute intracranial findings obtained in the ED. Suspected potential inadvertent overdose of Percocet and baclofen which was held with noted. Recommend continued alternating Tylenol and ibuprofen. Take the ibuprofen with food and not taken for prolonged period. #2. Recent mechanical fall with T12 compression fracture: Encourage continued outpatient follow-up with pain management, encouraged usage of rotating acetaminophen and ibuprofen of course taking ibuprofen with food and avoid prolonged usage. Plain film of the cervical spine with no acute findings also. #3. Chest discomfort with mildly elevated troponins, unclear significance w/ incidentally noted: EKG with no acute concerning findings, cardiac enzymes obtained initially 68 with repeat 81->81->75 most recently 12/23/2023, echocardiogram ordered. Maintained on Eliquis, statin, not on beta pilar with history of symptomatic bradycardia requiring pacemaker, not on ACEI/ARB. During admission as noted ECHO obtained with noted concentric left ventricular hypertrophy, EF 25 %, diastolic function indeterminate, moderate biatrial dilatation, moderately severe (3+) eccentric mitral valve insufficiency, RSVP 50 mmHg, small pericardial effusion. We have recommended follow-up at discharge with your cardiology service. #4. Oropharyngeal Dysphagia: Speech therapy with recommendation for follow-up swallow evaluation study. 12/25/2023 swallow testing with no concerning findings texture and thin liquids with advice of small bites, small sips, slow rate, alternating bites/solids and sips/liquids, sitting upright, remaining upright for 30 minutes after oral intake with recommended speech therapy evaluation and treatment which will be arranged outpatient. #5. HFrEF/nonischemic cardiomyopathy with Hx Sick Sinus Syndrome w/ worsening reduced function, small pericardial effusion, valvular heart disease: During admission you were maintained on your home low-dose Eliquis, statin. Your blood pressure was low normal test Lasix was temporarily held and upon resumption started at a lower dose of 20 mg with plan continuation of the same dose Monday with hold parameters on prescription. We recommended also that if recurrent hold necessary because of blood pressures that cardiology and primary care be contacted and updated. During admission as noted ECHO obtained with noted concentric left ventricular hypertrophy, EF 25 %, diastolic function indeterminate, moderate biatrial dilatation, moderately severe (3+) eccentric mitral valve insufficiency, RSVP 50 mmHg, small pericardial effusion. Discharge Orders/Prescriptions Prescriptions: New acetaminophen 500 mg Tablet 1,000 mg PO Q8 Qty: 0 0RF furosemide [Lasix] 20 mg tablet 20 mg PO MOWEFR 30 Days Qty: 13 0RF Rx Instructions: PLEASE HOLD LASIX IF BLOOD PRESSURE PRIOR TO TAKING < 110 SYSTOLIC. IF ROUTINELY LOW AND UNABLE TO TAKE NOTIFY YOUR ZIPPER MEASURER. Continued rosuvastatin 20 mg tablet 20 mg PO DAILY Patient Comments: take 1 tablet by mouth every morning Eliquis 2.5 mg tablet 2.5 mg PO BID Hold Instructions: Resume on 01/18/23. Patient Comments: take 1 tablet by mouth twice a day folic acid 1 mg Tablet 1 mg PO BID vitamin B complex Capsule 1 cap PO BID duloxetine 30 mg capsule,delayed release(DR/EC) 30 mg PO BID Hold Instructions: Resume on 12/25/23. polyethylene glycol 3350 [Miralax] 17 gram/dose powder 17 g PO DAILY PRN (Reason: constipation) Discontinued zolpidem 12.5 mg tablet,ext release multiphase 12.5 mg PO QHS Patient Comments: take 1 tablet by mouth at bedtime if needed baclofen 5 mg tablet 5 mg PO TID PRN (Reason: muscle spasm) 5 Days Qty: 15 0RF oxycodone-acetaminophen 5-325 mg tablet 1 tab PO TID PRN (Reason: ACUTE PAIN) Patient Comments: take 1 tablet by mouth three times a day if needed for ACUTE PAIN furosemide [Lasix] 40 mg tablet 40 mg PO MOWEFR Referrals / Follow Up: Damion Vu MD [Med Staff - Active Staff] - (Please follow-up within 1-2 weeks, may see Cardiology LIBRARY TECHNICAL ASSISTANT to review recent admission, mildly elevated troponin.) Joelle Stern MD [Primary Care Provider] - See Referral Note (Please follow-up within 3-5 days to review admission. Please review admission and changes to your medications.) Disposition Disposition (needs filled in before D/C Order can be placed): Home Health Service
--- NOTE | 2023-12-25 15:53 | PHA.DC_ITS ---
Pharmacy [facility] has performed discharge medication reconciliation and counseling for this patient. The patient's discharge medication list was reviewed for discrepancies and discrepancies were resolved. The patient was counseled on the following discharge medications and changes in medications for homegoing were reviewed. The Reason for Use, instructions for use, and potential side effects were reviewed for all new medications. The patient's questions regarding all of their medications were answered. 1. Acetaminophen 1000 mg PO Q8H 2. Furosemide 20 mg PO MWF, hold for SBP <110 The patient was able to verbally demonstrate an understanding of their discharge medications. Medications at Discharge Home Medications folic acid 1 mg tablet 1 mg PO BID supplement 10/11/21 vitamin B complex 1 cap PO BID vitamin 10/11/21 rosuvastatin 20 mg tablet 20 mg PO DAILY cholesterol 12/16/21 apixaban 2.5 mg tablet (Eliquis) 2.5 mg PO BID blood thinner 03/23/23 duloxetine 30 mg capsule,delayed release 30 mg PO BID DEPRESSION 12/15/23 acetaminophen 500 mg tablet 1,000 mg (2 x 500 mg) PO Q8 #0 tabs 12/23/23 polyethylene glycol 3350 17 gram/dose oral powder (Miralax) 17 g PO DAILY PRN constipation 12/23/23 furosemide 20 mg tablet (Lasix) 20 mg PO MOWEFR 30 days #13 tabs 12/25/23
[2023-12-25 16:10] VITALS: BP 128/87; PULSE 85; RESP 18; TEMP 36.6; O2SAT 96
--- NOTE | 2023-12-25 17:34 | DCINST_ITS ---
Discharge Instructions Diet Discharge Diet: Low fat / Low cholesterol Activity Discharge Activity: - (Encouraged continued device assist, maintain fall precautions, increase activity as able with PT/OT clearance.) May resume sexual activity in: - (Recommend clearance per primary care and therapies prior.) Weight Bearing Status: Weight bearing as tolerated Dressing / Incision Call your doctor if you observe: Fever of 101 or Higher, Numbness or Tingling, Inability to urinate, Shortness of breath, Dizziness, Swelling in the ankles, Chest pain, Increased palpitations (irregular heartbeat), Calf discomfort and Uncontrolled pain Follow Up Care Test Results: Test results from this visit will be discussed in further detail at your follow- up appointment, if applicable. Discharge Plan Admission Admit Date/Time: 12/23/23 10:11 Primary Reason for Your Visit: ic Encephalopathy, Dysphagia, Fall w/ T12 comp Fx, Reduced EF/Elevat Trop Attending Provider: Fabiola Nath Primary Care Provider: Joelle Stern Consulting Providers: Ryley Osuna; Hitesh Esqueda Instructions Additional Instructions / Restrictions: EVALUATED DURING ADMISSION: #1. Suspected toxic encephalopathy: CT brain with age-related changes with no acute intracranial findings obtained in the ED. Suspected potential inadvertent overdose of Percocet and baclofen which was held with noted. Recommend continued alternating Tylenol and ibuprofen. Take the ibuprofen with food and not taken for prolonged period. #2. Recent mechanical fall with T12 compression fracture: Encourage continued outpatient follow-up with pain management, encouraged usage of rotating acetaminophen and ibuprofen of course taking ibuprofen with food and avoid prolonged usage. Plain film of the cervical spine with no acute findings also. #3. Chest discomfort with mildly elevated troponins, unclear significance w/ incidentally noted: EKG with no acute concerning findings, cardiac enzymes obtained initially 68 with repeat 81->81->75 most recently 12/23/2023, echocardiogram ordered. Maintained on Eliquis, statin, not on beta pilar with history of symptomatic bradycardia requiring pacemaker, not on ACEI/ARB upon presentation. Given ECHO changes as noted with notably reduced EF cardiology consulted, added low dose spironolactone, low dose metoprolol succinate and lasix discontinued. ECHO with noted concentric left ventricular hypertrophy, EF 25 %, diastolic function indeterminate, moderate biatrial dilatation, moderately severe (3+) eccentric mitral valve insufficiency, RSVP 50 mmHg, small pericardial effusion. We have recommended follow-up at discharge with your cardiology service and they note intention for possibly addition of ARB on an outpatient bases depending on your re-evaluation. #4. Oropharyngeal Dysphagia: Speech therapy with recommendation for follow-up swallow evaluation study. 12/25/2023 swallow testing with no concerning findings texture and thin liquids with advice of small bites, small sips, slow rate, alternating bites/solids and sips/liquids, sitting upright, remaining upright for 30 minutes after oral intake with recommended speech therapy evaluation and treatment which will be arranged outpatient. #5. HFrEF/nonischemic cardiomyopathy with Hx Sick Sinus Syndrome w/ worsening reduced function, small pericardial effusion, valvular heart disease: Upon presentation noted to be on Eliquis, statin, not on beta pilar with history of symptomatic bradycardia requiring pacemaker, not on ACEI/ARB upon presentation and on MWF lasix only. Lasix held because of lower BP during presentation. ECHO with noted concentric left ventricular hypertrophy, EF 25 %, diastolic function indeterminate, moderate biatrial dilatation, moderately severe (3+) eccentric mitral valve insufficiency, RSVP 50 mmHg, small pericardial effusion. Given ECHO changes as noted with notably reduced EF cardiology consulted, added low dose spironolactone, low dose metoprolol succinate and lasix discontinued. We have recommended follow-up at discharge with your cardiology service and they note intention for possibly addition of ARB on an outpatient bases depending on your re-evaluation. Cardiology also requested that you take your daily weight and if you increase by > 5 lbs they recommend usage of lasix 40 mg po PRN weight gain > 5 lbs but at the same time you should notify your cardiology office if this is the case. Discharge Orders/Prescriptions Prescriptions: New acetaminophen 500 mg Tablet 1,000 mg PO Q8 Qty: 0 0RF spironolactone 25 mg Tablet 25 mg PO DAILY 30 Days Qty: 30 0RF metoprolol succinate 25 mg Tablet Extended Release 24 Hr 25 mg PO DAILY 30 Days Qty: 30 0RF furosemide [Lasix] 40 mg tablet 40 mg PO DAILY PRN (Reason: Weight gain > 5 lbs) Qty: 20 0RF Rx Instructions: Notify your cardiology if you use the medication. Continued rosuvastatin 20 mg tablet 20 mg PO DAILY Patient Comments: take 1 tablet by mouth every morning Eliquis 2.5 mg tablet 2.5 mg PO BID Hold Instructions: Resume on 01/18/23. Patient Comments: take 1 tablet by mouth twice a day folic acid 1 mg Tablet 1 mg PO BID vitamin B complex Capsule 1 cap PO BID duloxetine 30 mg capsule,delayed release(DR/EC) 30 mg PO BID Hold Instructions: Resume on 12/25/23. polyethylene glycol 3350 [Miralax] 17 gram/dose powder 17 g PO DAILY PRN (Reason: constipation) Discontinued zolpidem 12.5 mg tablet,ext release multiphase 12.5 mg PO QHS Patient Comments: take 1 tablet by mouth at bedtime if needed baclofen 5 mg tablet 5 mg PO TID PRN (Reason: muscle spasm) 5 Days Qty: 15 0RF oxycodone-acetaminophen 5-325 mg tablet 1 tab PO TID PRN (Reason: ACUTE PAIN) Patient Comments: take 1 tablet by mouth three times a day if needed for ACUTE PAIN furosemide [Lasix] 40 mg tablet 40 mg PO MOWEFR Referrals / Follow Up: Joelle Stern MD [Primary Care Provider] - See Referral Note (Please follow-up within 3-5 days to review admission. Please review admission and changes to your medications.) Hitesh Esqueda MD [Med Staff - Active Staff] - (Follow-up within 1-2 weeks for re-evaluation, consideration further regimen changes. Call office earlier if any concerns arise.) Disposition Disposition (needs filled in before D/C Order can be placed): Home Health Service
[2023-12-25 17:35] VITALS: BP 125/81; PULSE 84; RESP 18; TEMP 36.7; O2SAT 95
--- NOTE | 2023-12-25 17:38 | PCM.CONS.C ---
Assessment & Plan Assessment/Plan (1) HFrEF (heart failure with reduced ejection fraction): PLAN: The patient's echocardiogram in August 2023 showed an ejection fraction of 50%. This was felt to be nonischemic cardiomyopathy that had recovered from an EF of 35% in March 2022. In November 2021 the patient had a cath with minimal coronary disease and severe LV dysfunction. The patient had been treated with medical therapy with good recovery of his LV function. The patient is now only on Lasix 40 mg 3 days a week. His EF has dropped to 25%. We will reinstitute medical therapy starting with spironolactone and holding his Lasix. Will also add low-dose beta-pilar therapy and a gentle addition of angiotensin receptor pilar in the ambulatory setting in the next 2 weeks. We will reevaluate a basic metabolic panel after the institution of ARB therapy. His renal function creatinine clearance is 38 with a creatinine of 1.8. (2) Left bundle branch block (LBBB): PLAN: Patient has a history of chronic left bundle branch block and paroxysmal atrial fibrillation as well as sick sinus syndrome. He is currently in atrial fibrillation. He is totally unaware of it. (3) Pacemaker: PLAN: Continue his routine pacemaker follow-up through the pacer clinic at [facility] (4) CKD (chronic kidney disease), stage III: QUALIFIERS: Chronic kidney disease stage 3 subtype: stage 3b (GFR 30-44) Qualified Code(s): N18.32 - Chronic kidney disease, stage 3b PLAN: The patient is stage IIIb renal insufficiency. We will monitor him closely as we reinstitute angiotensin receptor pilar therapy. (5) Obstructive sleep apnea: PLAN: The patient is to continue utilizing his BiPAP machine in his home environment. PLAN: Plan 1. Add spironolactone 25 mg daily to the medical regiment. Hold the Lasix. 2. Utilize Lasix on a as needed basis for a weight gain of 3 pounds he weighs himself every morning in his home environment. 3. Lopressor tartrate 25 mg twice daily hold for blood pressure less than 90, the patient has a DDD pacemaker in place for low heart rate. 4. Patient will be seen in the office in 2 weeks and a decision will be made of adding angiotensin receptor pilar therapy. Once that is added within a week we will check a basic metabolic panel. 5. Repeat echocardiogram in 12 weeks. HPI Consult Data Date of Consult: 12/25/23 HPI Narrative Reason for Consultation: Abnormal echo HPI Narrative: BERNY INFANTE is a 83 M who presents with medication induced confusion. The patient had a fall with T-spine fracture. He was placed on pain meds and became confused on the medications and was brought to the emergency department for admission. The patient was admitted with toxic encephalopathy. Cardiac isoenzymes were minimally elevated at 81 on 2 occasions. They did not trend up. A 2D echocardiogram was performed which showed a left ventricular ejection fraction of 35%. This was down from 50% back in August 2023. The patient has a previous history of heart failure with reduced ejection fraction being as low as 20% at 1 point in time in the past prior to medical therapy. The patient was only on Lasix 3 days a week. His beta-pilar had been discontinued and he was no longer on an DANA or ARB or spironolactone. The patient denies any PND orthopnea denies any lower extremity edema he is resting comfortably in the bed. And ambulating in the halls he does complain of the back pain from his T12 fracture but is otherwise not significantly short of breath. He has noted that he is weaker since he has been laid up with this thoracic spine fracture. [facility] Medical History (Updated 12/25/23 @ 17:[address] Hitesh Esqueda MD) Atrial flutter CKD (chronic kidney disease), stage III Depression Dyspnea Fatigue HFrEF (heart failure with reduced ejection fraction) History of hay fever HTN (hypertension) Hyperkalemia, diminished renal excretion Hyperlipidemia Left bundle branch block (LBBB) Left ventricular diastolic dysfunction LVH (left ventricular hypertrophy) Non-ischemic cardiomyopathy Obstructive sleep apnea Prostate cancer Sick sinus syndrome Home Medications folic acid 1 mg tablet 1 mg PO BID supplement 10/11/21 [History Last Taken 12/15/21] vitamin B complex 1 cap PO BID vitamin 10/11/21 [History Last Taken 12/15/21] rosuvastatin 20 mg tablet 20 mg PO DAILY cholesterol 12/16/21 [History Last Taken 12/15/21] apixaban 2.5 mg tablet (Eliquis) 2.5 mg PO BID blood thinner 03/23/23 [History Last Taken Unknown] duloxetine 30 mg capsule,delayed release 30 mg PO BID DEPRESSION 12/15/23 [History Last Taken Unknown] acetaminophen 500 mg tablet 1,000 mg (2 x 500 mg) PO Q8 #0 tabs 12/23/23 [Rx Last Taken Unknown] polyethylene glycol 3350 17 gram/dose oral powder (Miralax) 17 g PO DAILY PRN constipation 12/23/23 [History Last Taken 12/22/23] furosemide 40 mg tablet (Lasix) 40 mg PO DAILY PRN Weight gain > 5 lbs #20 tabs 12/25/23 [Rx Last Taken Unknown] metoprolol succinate 25 mg tablet,extended release 24 hr 25 mg PO DAILY 30 days #30 tabs 12/25/23 [Rx Last Taken Unknown] spironolactone 25 mg tablet 25 mg PO DAILY 30 days #30 tabs 12/25/23 [Rx Last Taken Unknown] Allergy/AdvReac Type Severity Reaction Status Date / Time Iodinated Contrast Media Allergy Severe Shortness Verified 12/23/23 03:35 of breath iodine Allergy Shortness Verified 12/23/23 03:35 of breath Surgical History History of left heart catheterization (12/17/21) History of prostate surgery History of total bilateral knee replacement Hx of appendectomy Social History household members: spouse Smoking Status: Never smoker alcohol intake: current alcohol intake frequency: 0-2 drinks per day Alcohol type: beer, wine and hard liquor details: 1 drink per night substance use type: does not use caffeine: Yes Type: coffee Number of servings: 2 what type of physical activity do you participate in: walking frequency: daily seatbelt use: always ROS Constitutional Constitutional: Reports as per HPI Eyes Eyes: Reports systems reviewed and no addt'l complaints, except as documented ENT HEENT: Reports systems reviewed and no addt'l complaints, except as documented Cardiovascular Cardiovascular: Reports as per HPI Respiratory/Chest Respiratory/Chest: Reports as per HPI Gastrointestinal Gastrointestinal: Reports systems reviewed and no addt'l complaints, except as documented Genitourinary Genitourinary: Reports systems reviewed and no addt'l complaints, except as documented Musculoskeletal Musculoskeletal: Reports back pain Integumentary Integumentary: Reports systems reviewed and no addt'l complaints, except as documented Neurologic Neurologic: Reports weakness; Denies syncope Psychiatric Psychiatric: Reports systems reviewed and no addt'l complaints, except as documented Endocrine Endocrinology: Reports systems reviewed and no addt'l complaints, except as documented Hematologic/Lymphatic Hematologic/Lymphatic: Reports systems reviewed and no addt'l complaints, except as documented Allergic/Immunologic Allergic/Immunologic: Reports systems reviewed and no addt'l complaints, except as documented Physical Exam Const oriented x3 HEENT normocephalic Eyes EOMs intact bilaterally Neck Carotids: Negative for bruit Chest inspection of chest normal Chest: left pectoral incision Resp normal respiratory effort Auscultation: crackles bilateral Cardio regular rate, regular rhythm, S1 normal heart sound, S2 normal heart sound, no rub and no gallops Jugular Venous Distention: JVD other (Just above the clavicle at 90 degrees.) Heart Sounds: murmur systolic II/ soft right sternal border GI normal to inspection, nondistended, normoactive bowel sounds, soft to palpation and no bruits Extremity no pedal edema Skin General Skin Exam: ecchymosis Neuro Neuro Narrative: Alert and oriented x 3 Psych mental status grossly normal Risk Stratification Risk Stratification Applicable: Yes Age >/= 65: Yes >/= 3 CAD Risk Factors (HTN, HLD, DM, family hx of CAD, or current smoker): No Aspirin Use in the Past 7 Days: No Severe Angina (>/= episodes in 24 hours): No EKG ST Changes >/= 0.5mm: No Positive Cardiac Marker: Yes ESTHELA Risk Stratification Score: 2 ESTHELA % Risk: 8% Risk Charges/Coding Visit Charges Inpatient E&M: 80304 Init Hosp L3 Objective Data Vital Signs: Vital Signs Temp Pulse Resp BP Pulse Ox O2 Del Method 97.9 F 85 18 128/87 H 96 Room Air 12/25/23 16:10 12/25/23 16:10 12/25/23 16:10 12/25/23 16:10 12/25/23 16:10 12/25/23 16:10 Oxygen Delivery Method Room Air Weight: 181 lb 2 oz Body Mass Index (BMI) 25.2 Intake & Output: Intake and Output for Last 24 Hours 12/23/23 12/24/23 12/25/23 23:59 23:59 23:59 Intake Total 1100 / 1100 180 / 180 8.75 / 2067.75 Balance 1100 / 1100 180 / 180 8.75 / 2067.75 Lab / Micro Data 12/25/23 10:39 12/25/23 10:39 Labs: Laboratory Results - last 24 hr 12/25/23 10:39: WBC 12.0 H, RBC 4.99, Hgb 14.7, Hct 47.8, MCV 95.8 H, MCH 29.5, MCHC 30.8 L, RDW Std Deviation 48.4 H, RDW Coeff of [place] 13.8, Plt Count 228, MPV 11.2, Immature Gran % (Auto) 0.300, Neut % (Auto) 72.2 H, Lymph % (Auto) 17.0 L, [place] % (Auto) 9.1, Eos % (Auto) 0.7, Baso % (Auto) 0.7, Absolute Neuts (auto) 8.7 H, Absolute Lymphs (auto) 2.04, Nucleated RBC % 0.2, Sodium 139, Potassium 4.3, Chloride 111 H, Carbon Dioxide 19.0 L, Anion Gap 9, BUN 45 H, Creatinine 1.80 H, Estim Creat Clear Calc 33.12, Est GFR (MDRD) Af Amer 47 L, Est GFR (MDRD) Non-Af 38 L, BUN/Creatinine Ratio 25.0 H, Glucose 89, Calcium 8.6, Magnesium 2.5, Total Bilirubin 1.00, AST 28, ALT 23, Alkaline Phosphatase 141 H, Total Protein 7.3, Albumin 3.1 L, Globulin 4.2, Albumin/Globulin Ratio 0.7 L Rhythm Strip Rhythm Strip: A-fib Ectopy: None Cardiology Labs/Tests 12/25/23 10:39: WBC 12.0 H, RBC 4.99, Hgb 14.7, Hct 47.8, MCV 95.8 H, MCH 29.5, MCHC 30.8 L, Plt Count 228, MPV 11.2, Immature Gran % (Auto) 0.300, Neut % (Auto) 72.2 H, Lymph % (Auto) 17.0 L, [place] % (Auto) 9.1, Eos % (Auto) 0.7, Baso % (Auto) 0.7, Absolute Neuts (auto) 8.7 H, Nucleated RBC % 0.2, Sodium 139, Potassium 4.3, Chloride 111 H, Carbon Dioxide 19.0 L, Anion Gap 9, BUN 45 H, Creatinine 1.80 H, Est GFR (MDRD) Af Amer 47 L, Est GFR (MDRD) Non-Af 38 L, BUN/Creatinine Ratio 25.0 H, Glucose 89, Calcium 8.6, Magnesium 2.5, Total Bilirubin 1.00 Rhythm: EKG: ECHO: Stress Test: Cardiac Cath: PCI: CT Surgery: Holter monitor: EPS: PPM: CXR: Chest CT Scan: Radiography Diagnostic Testing: Radiology Impression Echocardiogram 12/23/23 17:39 Interpretation Summary Severe concentric left ventricular hypertrophy. The left ventricular ejection fraction is 25 %. Diastolic function is indeterminate. There is moderate biatrial dilatation. 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 Right ventricular systolic pressure estimated to be 50 mmHg. Small pericardial effusion. Ordering Physician: Ryley Osnua Referring Physician: Joelle Stern M.D. Performed By: April Kelly RDCS Initial EKG: Attestation: I personally reviewed and interpreted this EKG as follows: Interpretation: Underlying atrial fibrillation with left bundle branch block and demand DDD pacemaker. Atrial fibs is new from an EKG October 2023 at the time of a pacer check he was in normal sinus rhythm.
[2023-12-25] MEDS: Spironolactone 25 MG Tablet PO (18:10)
[2023-12-25 21:34] VITALS: BP 114/70; PULSE 79; RESP 14; TEMP 36.8; O2SAT 96
[2023-12-25] MEDS: Atorvastatin Calcium 40 MG Tablet PO (21:37)
[2023-12-26 03:28] VITALS: BP 119/79; PULSE 80; RESP 14; TEMP 36; O2SAT 97
[2023-12-26 05:23] LABS: Absolute Neutrophil Count 8.5 X10^3/uL (2.0-7.7); Basophil# 0.06 X10^3/uL; Basophil% 0.5 % (0-1); Eosinophil# 0.12 X10^3/uL; Hematocrit 40.9 % (40-54); Hemoglobin 13.3 g/dL (13.0-16.5); Lymphocyte % 15.6 % (19-41); Mean Corp Hgb Conc 32.5 g/dL (32-36); Mean Corpuscular Hgb 30.4 pg (27.0-32.0); Mean Corpuscular Volume 93.6 fL (80-94); Monocyte# 1.08 X10^3/uL; Monocyte% 9.3 % (0-10); NRBC Flagged by Analyzer 0 % (0-5); Neutrophil # 8.47 X10^3/uL (2.7-7.7); Neutrophil % 73.3 % (47-70); Platelet Count 235 K/mm3 (150-450); RBC Distribution Width CV 13.5 % (11.6-14.6); RBC Distribution Width SD 46.5 fl (35.1-43.9); Red Blood Count 4.37 M/mm3 (4.6-6.2); White Blood Count 11.6 K/mm3 (4.4-11.0)
[2023-12-26 05:53] LABS: ALB/GLOB Ratio 0.8 RATIO (0.9-2.4); AST(SGOT) 24 U/L (15-37); Alanine Aminotransfer ALT/SGPT 22 U/L (16-61); Albumin, Serum 2.9 g/dL (3.2-5.0); Alkaline Phosphatase 127 U/L (45-117); Anion Gap 3 (5-15); BUN 43 mg/dL (7-18); BUN/Creat Ratio 26.1 RATIO (10-20); Calcium,Total 8.5 mg/dL (8.5-10.1); Chloride 113 mmol/L (98-107); Creatinine, Serum 1.65 mg/dL (0.70-1.30); EST Glomerular Filtration Rate 43 mL/min (>60); Est Glom Filt Rate - Afr Amer 51 mL/min (>60); Estimated Creatinine Clearance 36.13 ml/min; Globulin 3.5 g/dL (2.2-4.2); Glucose 99 mg/dL (74-106); Potassium 4.1 mmol/L (3.5-5.1); Protein, Total 6.4 g/dL (6.4-8.2); Sodium Level 140 mmol/L (136-145)
[2023-12-26] MEDS: Acetaminophen 500 MG Tablet 1000 MG PO ×3 (06:10→21:07)
--- NOTE | 2023-12-26 06:30 | PCM.PN.HOSP ---
Reason for Visit Reason for Visit: Diagnoses Obstructive sleep apnea (adult) (pediatric) (12/23/23) Unspecified toxic encephalopathy (12/23/23) Left bundle-branch block, unspecified (12/23/23) Unspecified systolic (congestive) heart failure (12/23/23) Chronic kidney disease, stage 3b (12/23/23) Presence of cardiac pacemaker (12/23/23) Subjective Subjective Remained appropriate and he was up to the bathroom without issue with no lightheaded or dizziness. Patient however reports that he had onset of dark black loose stools overnight noting several at least 4 of them but into the morning he states that it started to firm up and are more brown in appearance. He denies any abdominal discomfort or cramping associated. Discussed plan of care with him including guaiac testing, hold on Eliquis, H&H trending, IV PPI, clears until midnight with n.p.o. status and GI involvement. Patient denies fevers, chills, nausea, emesis, abdominal pain, chest pain or dyspnea. Objective Data Objective Data Vital Signs: Vital Signs Temp Pulse Resp BP Pulse Ox O2 Del Method 96.8 F L 80 14 119/79 97 Room Air 12/26/23 03:28 12/26/23 03:28 12/26/23 03:28 12/26/23 03:28 12/26/23 03:28 12/26/23 03:56 Oxygen Delivery Method Room Air Weight: 181 lb 2 oz Body Mass Index (BMI) 25.2 Intake & Output: Intake and Output for Last 24 Hours 12/24/23 12/25/23 12/26/23 23:59 23:59 23:59 Intake Total 180 / 180 2748.75 / 2748.75 220 / 220 Balance 180 / 180 2748.75 / 2748.75 220 / 220 Lab / Micro Data 12/26/23 05:03 12/26/23 05:03 Labs: Laboratory Results - last 24 hr 12/25/23 10:39: WBC 12.0 H, RBC 4.99, Hgb 14.7, Hct 47.8, MCV 95.8 H, MCH 29.5, MCHC 30.8 L, RDW Std Deviation 48.4 H, RDW Coeff of [place] 13.8, Plt Count 228, MPV 11.2, Immature Gran % (Auto) 0.300, Neut % (Auto) 72.2 H, Lymph % (Auto) 17.0 L, [place] % (Auto) 9.1, Eos % (Auto) 0.7, Baso % (Auto) 0.7, Absolute Neuts (auto) 8.7 H, Absolute Lymphs (auto) 2.04, Nucleated RBC % 0.2, Sodium 139, Potassium 4.3, Chloride 111 H, Carbon Dioxide 19.0 L, Anion Gap 9, BUN 45 H, Creatinine 1.80 H, Estim Creat Clear Calc 33.12, Est GFR (MDRD) Af Amer 47 L, Est GFR (MDRD) Non-Af 38 L, BUN/Creatinine Ratio 25.0 H, Glucose 89, Calcium 8.6, Magnesium 2.5, Total Bilirubin 1.00, AST 28, ALT 23, Alkaline Phosphatase 141 H, Total Protein 7.3, Albumin 3.1 L, Globulin 4.2, Albumin/Globulin Ratio 0.7 L 12/26/23 05:03: WBC 11.6 H, RBC 4.37 L, Hgb 13.3, Hct 40.9, MCV 93.6, MCH 30.4, MCHC 32.5 D, RDW Std Deviation 46.5 H, RDW Coeff of [place] 13.5, Plt Count 235, MPV 11.0, Immature Gran % (Auto) 0.300, Neut % (Auto) 73.3 H, Lymph % (Auto) 15.6 L, [place] % (Auto) 9.3, Eos % (Auto) 1.0, Baso % (Auto) 0.5, Absolute Neuts (auto) 8.5 H, Absolute Lymphs (auto) 1.80, Nucleated RBC % 0, Sodium 140, Potassium 4.1, Chloride 113 H, Carbon Dioxide 24.0, Anion Gap 3 L, BUN 43 H, Creatinine 1.65 H, Estim Creat Clear Calc 36.13, Est GFR (MDRD) Af Amer 51 L, Est GFR (MDRD) Non-Af 43 L, BUN/Creatinine Ratio 26.1 H, Glucose 99, Calcium 8.5, Total Bilirubin 0.90, AST 24, ALT 22, Alkaline Phosphatase 127 H, Total Protein 6.4, Albumin 2.9 L, Globulin 3.5, Albumin/Globulin Ratio 0.8 L Radiography Diagnostic Testing: Radiology Impression Echocardiogram 12/23/23 17:39 Interpretation Summary Severe concentric left ventricular hypertrophy. The left ventricular ejection fraction is 25 %. Diastolic function is indeterminate. There is moderate biatrial dilatation. 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 Right ventricular systolic pressure estimated to be 50 mmHg. Small pericardial effusion. Ordering Physician: Rylye Osuna Referring Physician: Joelle Stern M.D. Performed By: April Kelly RDCS Rhythm Strip Rhythm Strip: A-fib Ectopy: None Physical Exam Narrative Physical Examination: General: Awake, alert, oriented x 3 and cooperative, seated upright in the PCU bed in no apparent distress, noting dark black stools overnight. Skin: Normal color, normal turgor, no icterus, no cyanosis except occasional staged ecchymoses. HEENT: AT/NC, EOMI, PERRLA, MMM. Lungs: Mildly diminished, greater bases, appropriate effort, no rales, ronchi or wheezing. Heart: Regular rate and rhythm; no gallop, rub audible. Abdomen: Soft, NTTP, ND, mildly hyperactive BS. Extremities: No cyanosis, no clubbing, no marked peripheral pitting edema noted. Neurological: Patient awake, alert, oriented as noted, cognitive function intact; pupils equally reactive to light and accommodation, cranial nerves II-XII grossly normal, moving all 4 extremities although somewhat limited secondary to recent fall with T12 compression fracture, no focal deficits, strength improving, moderately global decreased. Psychiatric: Affect appears improved, normal, no acute evidence of depressive or anxiety feelings. Assessment & Plan Assessment/Plan (1) Toxic encephalopathy: PLAN: Plan The patient is an 82 y/o M w/ PMHx: PAFlutter, Depression and Anxiety, MIKY, HFrEF/Nonischemic cardiomyopathy, HTN, HLD, PAF, Hx Prostate CA s/p prostate surgery, CKD stage III unclear subtype, Symptomatic bradycardia s/p pacemaker status who presents to the [facility] ED on 12/23/23 with history of confusion with recent prescription started for Percocet as well as baclofen secondary to fall with T12 compression fracture evaluated by ER as well as pain management with concern for inadvertently taking too much with workup including brain MRI that was unremarkable prompting eventual admission. #1. HFrEF/nonischemic cardiomyopathy w/ Worsened EF, Valvular Disease, Small pericardial effusion with Hx Sick Sinus Syndrome: Upon presentation noted to be on Eliquis, statin, not on beta pilar with history of symptomatic bradycardia requiring pacemaker, not on ACEI/ARB upon presentation and on MWF lasix only. Lasix held because of lower BP during presentation. ECHO with noted concentric left ventricular hypertrophy, EF 25 %, diastolic function indeterminate, moderate biatrial dilatation, moderately severe (3+) eccentric mitral valve insufficiency, RSVP 50 mmHg, small pericardial effusion. Given ECHO changes as noted with notably reduced EF cardiology consulted, added low dose spironolactone, low dose metoprolol succinate and lasix discontinued. Cardiology noting intention for possibly addition of ARB on an outpatient bases depending on re-evaluation. Cardiology also noted plan of daily weight and if increase by > 5 lbs lasix 40 mg po PRN weight gain. 12/26/23 noted to tolerate medication changes well, up and moving without LH/Dizziness but onset overnight dark black stools, continued evaluation as noted, holding eliquis. #2. Suspected Acute GI Bleed with melanotic stools, new onset: New onset black dark stools, initially loose, seeming to resolve, but several early in the AM 12/26/23. Will hold eliquis. Will maintain on IV PPI. Will transition to clears with NPO status at midnight to be cautious, GI consulted. 12/26/23 Hgb 13.3, stable despite black stools of note. #3. Suspected toxic encephalopathy: CT brain with age-related changes with no acute intracranial findings obtained in the ED. Patient with suspected potential inadvertent overdose of Percocet and baclofen, admitted, held these medications, maintain on fall precautions, no focal presentation and recent outpatient evaluation with MRI unremarkable, maintain on fall precaution, PT/OT for discharge planning. #4. Recent mechanical fall with T12 compression fracture: Encourage continued outpatient follow-up with pain management, encouraged usage of rotating acetaminophen and ibuprofen, given reaction with confusion potentially related with these recent sedated medications encourage avoidance of Percocet or baclofen or potentially reduced intake. 12/24/2019 for concern for mild abnormal cracking when he turns his head, cervical spine plain films with no discrete fracture or subluxation, prominent diffuse spondylosis. #5. Recent history of chest discomfort with mildly elevated troponins, unclear significance, possibly related with underlying renal disease: Patient with complaint of chest discomfort 12/23/2023 however had recent fall, troponin initially 68 with repeat 81-> 81-> now 75 most recently 12/23/2023, EKGs with no acute concerning findings, echocardiogram obtained as noted, continued Lipitor, lasix d/c as noted, added spironolactone low dose per Cardiology recommendation, added metoprolol succinate low dose per Cardiology recommendation. Holding eliquis given #2. #6. Dysphagia: By ST with recommendation for follow-up swallow evaluation study. 12/25/2023 swallow testing with no concerning findings texture and thin liquids with advice of small bites, small sips, slow rate, alternating bites/solids and sips/liquids, sitting upright, remaining upright for 30 minutes after oral intake with recommended speech therapy evaluation and treatment which will be arranged outpatient. #7. Chronic Kidney Disease Stage III, unclear subtype: Admission BUN/Cr 41/1.90, baseline renal function 1.6-1.8, 12/26/23 BUN/Cr 43/1.65, repeat BMP in AM. #8. Hypertension: Given low BP upon presentation patient Lasix held; however discussion with Cardiology given worsening EF and noted patient BP range should be systolic 90-100 and given ECHO changes as noted with notably reduced EF cardiology consulted, added low dose spironolactone, low dose metoprolol succinate and lasix discontinued. Will plan usage of lasix PRN only for weight gain with parameters. Overnight 12/25/23-12/26/23 BP remained appropriate. #9. Hyperlipidemia: We will continue patient on statin therapy. #10. History of prostate cancer: Status post surgical prostate intervention, considered in remission, encourage continued outpatient follow-up with urology. #11. Anxiety and depression: We will continue patient home duloxetine regimen. #12. PAFlutter: Noted in history, s/p pacemaker placement, as noted holding eliquis regimen, not on rate/rhythm agent prior, recent addition low dose metoprolol as noted. #13. MIKY: CPAP nightly if amenable. #14. DVT prophylaxis: SCDs. Holding home eliquis regimen. #15. CODE status: Full Code. Charges/Coding Visit Charges Inpatient E&M: 26973 Subs Hosp L3
[2023-12-26 08:06] VITALS: BP 152/94; PULSE 83; RESP 17; TEMP 36.6; O2SAT 99
[2023-12-26 08:12] VITALS: PULSE 83
[2023-12-26] MEDS: DULoxetine Hcl 30 MG Capsule PO ×2 (08:12→21:07)
[2023-12-26] MEDS: Folic Acid 1 MG Tablet PO ×2 (08:12→15:15)
[2023-12-26] MEDS: Metoprolol(XL)Succ 25 MG Tablet PO (08:12)
[2023-12-26] MEDS: Spironolactone 25 MG Tablet PO (08:13)
--- NOTE | 2023-12-26 09:44 | CASEMGMT ---
Updated [facility] Romelia that pt will not dc today.
--- NOTE | 2023-12-26 10:00 | PN.CARD_ITS ---
Subjective Subjective The patient reported 3 dark tarry stools this morning. He denied any PND orthopnea he has been up in the room but not ambulating in the halls. He had no shortness of breath being up in the rooms. He has not been dizzy. His hemoglobin was 13 this morning. This is minimally down from yesterday. He has not received his oral anticoagulation therapy yet today it was held. He is tolerating the metoprolol and Lopressor. Objective Data Vital Signs: Vital Signs Temp Pulse Resp BP Pulse Ox O2 Del Method 97.9 F 83 17 152/94 H 99 Room Air 12/26/23 08:06 12/26/23 08:12 12/26/23 08:06 12/26/23 08:06 12/26/23 08:06 12/26/23 09:53 Oxygen Delivery Method Room Air Weight: 181 lb 2 oz Body Mass Index (BMI) 25.2 Intake & Output: Intake and Output for Last 24 Hours 12/24/23 12/25/23 12/26/23 23:59 23:59 23:59 Intake Total 180 / 180 2748.75 / 2748.75 220 / 220 Balance 180 / 180 2748.75 / 2748.75 220 / 220 Lab / Micro Data Attestation: I reviewed the patient's lab results. 12/26/23 05:03 12/26/23 05:03 Labs: Laboratory Results - last 24 hr 12/25/23 10:39: WBC 12.0 H, RBC 4.99, Hgb 14.7, Hct 47.8, MCV 95.8 H, MCH 29.5, MCHC 30.8 L, RDW Std Deviation 48.4 H, RDW Coeff of Laney 13.8, Plt Count 228, MPV 11.2, Immature Gran % (Auto) 0.300, Neut % (Auto) 72.2 H, Lymph % (Auto) 17.0 L, [place] % (Auto) 9.1, Eos % (Auto) 0.7, Baso % (Auto) 0.7, Absolute Neuts (auto) 8.7 H, Absolute Lymphs (auto) 2.04, Nucleated RBC % 0.2, Sodium 139, Potassium 4.3, Chloride 111 H, Carbon Dioxide 19.0 L, Anion Gap 9, BUN 45 H, Creatinine 1.80 H, Estim Creat Clear Calc 33.12, Est GFR (MDRD) Af Amer 47 L, Est GFR (MDRD) Non-Af 38 L, BUN/Creatinine Ratio 25.0 H, Glucose 89, Calcium 8.6, Magnesium 2.5, Total Bilirubin 1.00, AST 28, ALT 23, Alkaline Phosphatase 141 H, Total Protein 7.3, Albumin 3.1 L, Globulin 4.2, Albumin/Globulin Ratio 0.7 L 12/26/23 05:03: WBC 11.6 H, RBC 4.37 L, Hgb 13.3, Hct 40.9, MCV 93.6, MCH 30.4, MCHC 32.5 D, RDW Std Deviation 46.5 H, RDW Coeff of [place] 13.5, Plt Count 235, MPV 11.0, Immature Gran % (Auto) 0.300, Neut % (Auto) 73.3 H, Lymph % (Auto) 15.6 L, [place] % (Auto) 9.3, Eos % (Auto) 1.0, Baso % (Auto) 0.5, Absolute Neuts (auto) 8.5 H, Absolute Lymphs (auto) 1.80, Nucleated RBC % 0, Sodium 140, Potassium 4.1, Chloride 113 H, Carbon Dioxide 24.0, Anion Gap 3 L, BUN 43 H, Creatinine 1.65 H, Estim Creat Clear Calc 36.13, Est GFR (MDRD) Af Amer 51 L, Est GFR (MDRD) Non-Af 43 L, BUN/Creatinine Ratio 26.1 H, Glucose 99, Calcium 8.5, Total Bilirubin 0.90, AST 24, ALT 22, Alkaline Phosphatase 127 H, Total Protein 6.4, Albumin 2.9 L, Globulin 3.5, Albumin/Globulin Ratio 0.8 L Micro: Microbiology 12/26/23 08:43 Stool Stool Occult Blood (AGUS) - Final Occult Blood Positive Cardiology Labs/Tests 12/25/23 10:39: WBC 12.0 H, RBC 4.99, Hgb 14.7, Hct 47.8, MCV 95.8 H, MCH 29.5, MCHC 30.8 L, Plt Count 228, MPV 11.2, Immature Gran % (Auto) 0.300, Neut % (Auto) 72.2 H, Lymph % (Auto) 17.0 L, [place] % (Auto) 9.1, Eos % (Auto) 0.7, Baso % (Auto) 0.7, Absolute Neuts (auto) 8.7 H, Nucleated RBC % 0.2, Sodium 139, Pota ssium 4.3, Chloride 111 H, Carbon Dioxide 19.0 L, Anion Gap 9, BUN 45 H, Creatinine 1.80 H, Est GFR (MDRD) Af Amer 47 L, Est GFR (MDRD) Non-Af 38 L, B UN/Creatinine Ratio 25.0 H, Glucose 89, Calcium 8.6, Magnesium 2.5, Total Bilirubin 1.00 12/26/23 05:03: WBC 11.6 H, RBC 4.37 L, Hgb 13.3, Hct 40.9, MCV 93.6, MCH 30.4, MCHC 32.5 D, Plt Count 235, MPV 11.0, Immature Gran % (Auto) 0.300, Neut % (Auto) 73.3 H, Lymph % (Auto) 15.6 L, [place] % (Auto) 9.3, Eos % (Auto) 1.0, Baso % (Auto) 0.5, Absolute Neuts (auto) 8.5 H, Nucleated RBC % 0, Sodium 140, Potassium 4.1, Chloride 113 H, Carbon Dioxide 24.0, Anion Gap 3 L, BUN 43 H, Creatinine 1.65 H, Est GFR (MDRD) Af Amer 51 L, Est GFR (MDRD) Non-Af 43 L, BUN/Creatinine Ratio 26.1 H, Glucose 99, Calcium 8.5, Total Bilirubin 0.90 Rhythm: EKG: ECHO: Stress Test: Cardiac Cath: PCI: CT Surgery: Holter monitor: EPS: PPM: CXR: Chest CT Scan: Radiography Diagnostic Testing: Radiology Impression Echocardiogram 12/23/23 17:39 Interpretation Summary Severe concentric left ventricular hypertrophy. The left ventricular ejection fraction is 25 %. Diastolic function is indeterminate. There is moderate biatrial dilatation. 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 Right ventricular systolic pressure estimated to be 50 mmHg. Small pericardial effusion. Ordering Physician: Ryley Osuna Referring Physician: Joelle Stern M.D. Performed By: April Kelly RDCS Physical Exam Const oriented x3 HEENT normocephalic Eyes EOMs intact bilaterally Neck no JVD Neck Narrative: At 90 degrees Chest inspection of chest normal Resp normal respiratory effort Cardio regular rate Rhythm: abnormal rhythm irregularly irregular Heart Sounds: S1 normal, S2 normal and murmur systolic I/ soft left sternal border and right sternal border; Negative for click or gallop GI soft to palpation Extremity no pedal edema Skin General Skin Exam: ecchymosis Psych mental status grossly normal Assessment & Plan Assessment/Plan (1) Pacemaker: PLAN: The patient's pacemaker appears to be functioning appropriately he is followed through the [facility] pacer clinic. (2) HFrEF (heart failure with reduced ejection fraction): PLAN: Patient's ejection fraction is noted to drop from 50 to 35% on the echo done yesterday. He only has mild coronary disease and this is presumed to be a nonischemic cardiomyopathy. The patient's blood pressure has tolerated the addition of the beta-pilar and spironolactone. The patient needs to have a basic metabolic panel checked in a week. (3) Non-ischemic cardiomyopathy: PLAN: See #2 above. (4) CKD (chronic kidney disease), stage III: QUALIFIERS: Chronic kidney disease stage 3 subtype: stage 3b (GFR 30-44) Qualified Code(s): N18.32 - Chronic kidney disease, stage 3b PLAN: The patient has stage III chronic renal insufficiency. We will need to monitor his renal status closely as we institute spironolactone and then in addition add angiotensin receptor pilar therapy later as an outpatient. He should have a basic metabolic panel done in 1 week. (5) Paroxysmal atrial fibrillation: PLAN: The patient is on long-term oral anticoagulation therapy but his stools became tarry and heme positive today so his oral anticoagulation has to be held at this time. GI has been consulted. (6) Heme positive stool: PLAN: The patient is on long-term oral anticoagulation. GI has been consulted for their input. The oral anticoagulation therapy is on hold. Hemoglobin was stable at 13 this morning PLAN: Plan 1. Hold oral anticoagulation. 2. GI consult for heme positive stool evaluation in a patient requiring long- term oral anticoagulation. 3. Monitor blood pressure and heart rate as we titrate spironolactone and beta- pilar therapy prior to discharge. 4. Patient to follow-up in Dr. iglesias's office in 1 week with a basic metabolic panel and to be evaluated for addition of angiotensin receptor pilar therapy to his medical regiment. Thank you for allowing me to participate in the care of your patient. Please don't hesitate to call if any issues arise. This note was generated using a voice recognition system and there may be incorrect words, spelling, or punctuation that were not noted when reviewing the office note prior to saving. Portions of this documentation were copied and pasted from previous office visit notes to provide a cohesive continuity of the history. The note has been reviewed, edited, and updated, as necessary. Charges/Coding Visit Charges Inpatient E&M: 67494 Subs Hosp L3
[2023-12-26] MEDS: Pantoprazole Sodium 40 MG in 0.9% Normal Saline (100mL MB+) 100 ML 330 MG IV ×2 (10:27→21:06)
[2023-12-26 12:50] LABS: Hematocrit 38.6 % (40-54); Hemoglobin 12.3 g/dL (13.0-16.5)
[2023-12-26 15:14] VITALS: BP 132/83; PULSE 67; RESP 16; TEMP 37.2; O2SAT 99
[2023-12-26 16:55] LABS: Hematocrit 40.8 % (40-54); Hemoglobin 13.2 g/dL (13.0-16.5)
[2023-12-26] MEDS: Bisacodyl 5 MG Tablet 20 MG PO (17:38)
[2023-12-26] MEDS: Polyethylene Glycol 3350 BOWEL PREP PO (19:30)
[2023-12-26 20:43] VITALS: BP 108/79; PULSE 56; RESP 18; TEMP 36.5; O2SAT 96
[2023-12-26] MEDS: Atorvastatin Calcium 40 MG Tablet PO (21:07)
--- NOTE | 2023-12-26 21:13 | CPS ---
Pt wears bipap at home. Home settings from previous documents is . Patient asked if he wanted one of our machines because he was unable to bring in his own. Patient is prepping for colonoscopy tomorrow and has to prep so he doesnt want to wear bipap tonight. Nursing notified. Patient advised that if he changes his mind, one can be provided for him.
--- NOTE | 2023-12-26 21:17 | CPS ---
Patient wears bipap per previous documentation. Patient does not want our machine tonight because he is prepping for his colonoscopy tonight. No unit placed in room. Nursing notified.
--- NOTE | 2023-12-26 23:00 | EX.PCM.CON.G ---
HPI Consult Data Date of Consult: 12/26/23 HPI Narrative Reason for Consultation: Anemia HPI Narrative: BERNY INFANTE, is a83 M who presented with confusion. Recently, patient has received prescriptions for Percocet as well as baclofen for a recently sustained T12 compression fracture. Patient was seen in the emergency room as well as pain management. Patient may have inadvertently taken too much of some of his medications last night and presents here confused. Patient did undergo workup with brain MRI. That was unremarkable. There was note that patient may have had pinpoint pupils upon EMS arrival. Patient has continued to be confused and have perseveration in regards to being sorry per unclear reasons. Hospice service was contacted for admission as it been several hours and the patient was still confused. Cardiac isoenzymes were minimally elevated at 81 on 2 occasions. They did not trend up. A 2D echocardiogram was performed which showed a left ventricular ejection fraction of 35%. This was down from 50% back in August 2023. The patient has a previous history of heart failure with reduced ejection fraction being as low as 20% at 1 point in time in the past prior to medical therapy. The patient was only on Lasix 3 days a week. His beta-pilar had been discontinued and he was no longer on an DANA or ARB or spironolactone. The patient denies any PND orthopnea denies any lower extremity edema he is resting comfortably in the bed. And ambulating in the halls he does complain of the back pain from his T12 fracture but is otherwise not significantly short of breath. He has noted that he is weaker since he has been laid up with this thoracic spine fracture. I was asked to see him due to decreasing hemoglobin and him having heme positive stools. He does not take any blood thinners or NSAIDs. He did have a colonoscopy was approximately 10 years ago. [facility] Medical History (Updated 12/26/23 @ 10:[address] Hitesh Esqueda MD) Atrial flutter CKD (chronic kidney disease), stage III Depression Dyspnea Fatigue HFrEF (heart failure with reduced ejection fraction) History of hay fever HTN (hypertension) Hyperkalemia, diminished renal excretion Hyperlipidemia Left bundle branch block (LBBB) Left ventricular diastolic dysfunction LVH (left ventricular hypertrophy) Non-ischemic cardiomyopathy Obstructive sleep apnea Prostate cancer Sick sinus syndrome Home Medications folic acid 1 mg tablet 1 mg PO BID supplement 10/11/21 [History Last Taken 12/15/21] vitamin B complex 1 cap PO BID vitamin 10/11/21 [History Last Taken 12/15/21] rosuvastatin 20 mg tablet 20 mg PO DAILY cholesterol 12/16/21 [History Last Taken 12/15/21] apixaban 2.5 mg tablet (Eliquis) 2.5 mg PO BID blood thinner 03/23/23 [History Last Taken Unknown] duloxetine 30 mg capsule,delayed release 30 mg PO BID DEPRESSION 12/15/23 [History Last Taken Unknown] acetaminophen 500 mg tablet 1,000 mg (2 x 500 mg) PO Q8 #0 tabs 12/23/23 [Rx Last Taken Unknown] polyethylene glycol 3350 17 gram/dose oral powder (Miralax) 17 g PO DAILY PRN constipation 12/23/23 [History Last Taken 12/22/23] furosemide 40 mg tablet (Lasix) 40 mg PO DAILY PRN Weight gain > 5 lbs #20 tabs 12/25/23 [Rx Last Taken Unknown] metoprolol succinate 25 mg tablet,extended release 24 hr 25 mg PO DAILY 30 days #30 tabs 12/25/23 [Rx Last Taken Unknown] spironolactone 25 mg tablet 25 mg PO DAILY 30 days #30 tabs 12/25/23 [Rx Last Taken Unknown] Allergy/AdvReac Type Severity Reaction Status Date / Time Iodinated Contrast Media Allergy Severe Shortness Verified 12/23/23 03:35 of breath iodine Allergy Shortness Verified 12/23/23 03:35 of breath Surgical History History of left heart catheterization (12/17/21) History of prostate surgery History of total bilateral knee replacement Hx of appendectomy Social History household members: spouse Smoking Status: Never smoker alcohol intake: current alcohol intake frequency: 0-2 drinks per day Alcohol type: beer, wine and hard liquor details: 1 drink per night substance use type: does not use caffeine: Yes Type: coffee Number of servings: 2 what type of physical activity do you participate in: walking frequency: daily seatbelt use: always ROS Constitutional Constitutional: Reports as per HPI Eyes Eyes: Reports systems reviewed and no addt'l complaints, except as documented ENT HEENT: Reports systems reviewed and no addt'l complaints, except as documented Cardiovascular Cardiovascular: Reports as per HPI Respiratory/Chest Respiratory/Chest: Reports as per HPI Gastrointestinal Gastrointestinal: Reports systems reviewed and no addt'l complaints, except as documented Genitourinary Genitourinary: Reports systems reviewed and no addt'l complaints, except as documented Musculoskeletal Musculoskeletal: Reports back pain Integumentary Integumentary: Reports systems reviewed and no addt'l complaints, except as documented Neurologic Neurologic: Reports weakness; Denies syncope Psychiatric Psychiatric: Reports systems reviewed and no addt'l complaints, except as documented Endocrine Endocrinology: Reports systems reviewed and no addt'l complaints, except as documented Hematologic/Lymphatic Hematologic/Lymphatic: Reports systems reviewed and no addt'l complaints, except as documented Allergic/Immunologic Allergic/Immunologic: Reports systems reviewed and no addt'l complaints, except as documented Physical Exam Narrative Physical Examination: General: Awake, alert, oriented x 3 and cooperative, seated upright in the PCU bed in no apparent distress, noting dark black stools overnight. Skin: Normal color, normal turgor, no icterus, no cyanosis except occasional staged ecchymoses. HEENT: AT/NC, EOMI, PERRLA, MMM. Lungs: Mildly diminished, greater bases, appropriate effort, no rales, ronchi or wheezing. Heart: Regular rate and rhythm; no gallop, rub audible. Abdomen: Soft, NTTP, ND, mildly hyperactive BS. Extremities: No cyanosis, no clubbing, no marked peripheral pitting edema noted. Neurological: Patient awake, alert, oriented as noted, cognitive function intact; pupils equally reactive to light and accommodation, cranial nerves II-XII grossly normal, moving all 4 extremities although somewhat limited secondary to recent fall with T12 compression fracture, no focal deficits, strength improving, moderately global decreased. Psychiatric: Affect appears improved, normal, no acute evidence of depressive or anxiety feelings. Lab / Micro Data 12/27/23 07:00 12/27/23 07:00 Labs: Laboratory Results - last 24 hr 12/26/23 16:43: Hgb 13.2, Hct 40.8 12/27/23 07:00: WBC 8.4, RBC 4.18 L, Hgb 12.5 L, Hct 39.3 L, MCV 94.0, MCH 29.9, MCHC 31.8 L, RDW Std Deviation 46.9 H, RDW Coeff of Laney 13.7, Plt Count 221, MPV 11.1, Immature Gran % (Auto) 0.200, Neut % (Auto) 67.1, Lymph % (Auto) 21.1, [place] % (Auto) 10.0, Eos % (Auto) 1.0, Baso % (Auto) 0.6, Absolute Neuts (auto) 5.6, Absolute Lymphs (auto) 1.77, Nucleated RBC % 0, Sodium 137, Potassium 3.7, Chloride 112 H, Carbon Dioxide 20.0 L, Anion Gap 5, BUN 39 H, Creatinine 1.76 H, Estim Creat Clear Calc 33.87, Est GFR (MDRD) Af Amer 48 L, Est GFR (MDRD) Non-Af 39 L, BUN/Creatinine Ratio 22.2 H, Glucose 99, Calcium 8.4 L, Total Bilirubin 0.70, AST 26, ALT 23, Alkaline Phosphatase 139 H, Total Protein 6.5, Albumin 2.9 L, Globulin 3.6, Albumin/Globulin Ratio 0.8 L Micro: Microbiology 12/26/23 08:43 Stool Stool Occult Blood (AGUS) - Final Occult Blood Positive Rhythm Strip Rhythm Strip: A-fib Ectopy: None Assessment & Plan Assessment/Plan (1) Toxic encephalopathy: PLAN: Plan The patient is an 82 y/o M w/ PMHx: PAFlutter, Nonischemic cardiomyopathy, HTN, HLD, PAF, who was discovered to have symptomatic bradycardia s/p pacemaker status who presents to the [facility] ED on 12/23/23 with history of confusion. He was also discovered to have dark stools possibly associated with melena and a decrease in hemoglobin. Differential diagnosis does include upper GI bleed secondary to angiodysplasia, peptic ulcer disease and less likely neoplasia. Heme positive stools possibly secondary to upper GI bleed versus lower GI bleed secondary to malignancy, dysplasia, diverticular disease, ischemic disease. He will undergo an upper and lower endoscopy to evaluate his upper and lower GI tract. He was explained alternatives, risk, benefits including outstanding bleeding, infection, sepsis, perforation, need for emergent urgent . Have an ASA of 3. Continue to hold Eliquis therapy. ue patient home duloxetine regimen. Charges/Coding Visit Charges Inpatient E&M: 46069 Init Hosp L3
[2023-12-27] VITALS (10 sets, daily range): BP systolic 88–132; BP diastolic 56–85; PULSE 53–66; RESP 14–18; TEMP 36.5–37.2; O2SAT 96–100; BMI 32.4
[2023-12-27] MEDS: 0.9% Normal Saline (1000mL) 1,000 ML 60 ML IV
--- NOTE | 2023-12-27 06:29 | PN.HOSP_ITS ---
Reason for Visit Reason for Visit: Diagnoses Obstructive sleep apnea (adult) (pediatric) (12/26/23) Unspecified toxic encephalopathy (12/26/23) Other cardiomyopathies (12/26/23) Left bundle-branch block, unspecified (12/26/23) Paroxysmal atrial fibrillation (12/26/23) Unspecified systolic (congestive) heart failure (12/26/23) Chronic kidney disease, stage 3b (12/26/23) Other fecal abnormalities (12/26/23) Presence of cardiac pacemaker (12/26/23) Subjective Subjective Patient with no acute events overnight per self and per nursing report. To lerated prep well and was noted to be clear following. Vital signs remained stable on new beta-pilar therapy and spironolactone regimen. Patient with upper endoscopy with notable findings which were reviewed with patient and plan of care to continue high-dose PPI as well as Carafate and additional 2-day hold on his anticoagulant therapy with close early GI follow-up which he is amenable. Patient denies fevers, chills, nausea, emesis, abdominal pain, chest pain or dyspnea. Objective Data Objective Data Vital Signs: Vital Signs Temp Pulse Resp BP Pulse Ox O2 Del Method 98 F 62 18 109/85 H 98 Room Air 12/27/23 02:30 12/27/23 02:30 12/27/23 02:30 12/27/23 02:30 12/27/23 02:30 12/27/23 02:30 Oxygen Delivery Method Room Air Weight: 181 lb 2 oz Body Mass Index (BMI) 25.2 Intake & Output: Intake and Output for Last 24 Hours 12/25/23 12/26/23 12/27/23 23:59 23:59 23:59 Intake Total 2748.75 / 2748.75 440 / 1940 1500 / 1500 Output Total 1500 / 1500 Balance 2748.75 / 2748.75 440 / 940 0 / 0 Lab / Micro Data 12/27/23 07:00 12/27/23 07:00 Labs: Laboratory Results - last 24 hr 12/26/23 12:40: Hgb 12.3 L, Hct 38.6 L 12/26/23 16:43: Hgb 13.2, Hct 40.8 Micro: Microbiology 12/26/23 08:43 Stool Stool Occult Blood (AGUS) - Final Occult Blood Positive Rhythm Strip Rhythm Strip: A-fib Ectopy: None Physical Exam Narrative Physical Examination: General: Awake, alert, oriented x 3 and cooperative, seated upright in the PCU bedside chair, NAD. Skin: Normal color, normal turgor, no icterus, no cyanosis except occasional staged ecchymoses. HEENT: AT/NC, EOMI, PERRLA, MMM. Lungs: Mildly diminished, greater bases, appropriate effort, no rales, ronchi or wheezing. Heart: Regular rate and rhythm; no gallop, rub audible. Abdomen: Soft, NTTP, ND, normal BS. Extremities: No cyanosis, no clubbing, no marked peripheral pitting edema noted. Neurological: Patient awake, alert, oriented as noted, cognitive function intact; pupils equally reactive to light and accommodation, cranial nerves II- XII grossly normal, moving all 4 extremities although somewhat limited secondary to recent fall with T12 compression fracture, no focal deficits, strength improving, mildly to moderately global decreased. Psychiatric: Affect appears normal, no acute evidence of depressive or anxiety feelings. Assessment & Plan Assessment/Plan (1) Toxic encephalopathy: PLAN: Plan The patient is an 82 y/o M w/ PMHx: PAFlutter, Depression and Anxiety, MIKY, HFrEF/Nonischemic cardiomyopathy, HTN, HLD, PAF, Hx Prostate CA s/p prostate surgery, CKD stage III unclear subtype, Symptomatic bradycardia s/p pacemaker status who presents to the [facility] ED on 12/23/23 with history of confusion with recent prescription started for Percocet as well as baclofen secondary to fall with T12 compression fracture evaluated by ER as well as pain management with concern for inadvertently taking too much with workup including brain MRI that was unremarkable prompting eventual admission. #1. HFrEF/nonischemic cardiomyopathy w/ Worsened EF, Valvular Disease, Small pericardial effusion with Hx Sick Sinus Syndrome: Upon presentation noted to be on Eliquis, statin, not on beta pilar with history of symptomatic bradycardia requiring pacemaker, not on ACEI/ARB upon presentation and on MWF lasix only. Lasix held because of lower BP during presentation. ECHO with noted concentric left ventricular hypertrophy, EF 25 %, diastolic function indeterminate, moderate biatrial dilatation, moderately severe (3+) eccentric mitral valve insufficiency, RSVP 50 mmHg, small pericardial effusion. Given ECHO changes as noted with notably reduced EF cardiology consulted, added low dose spironolactone, low dose metoprolol succinate and lasix discontinued. Cardiology noting intention for possibly addition of ARB on an outpatient bases depending on re-evaluation. Cardiology also noted plan of daily weight and if increase by > 5 lbs lasix 40 mg po PRN weight gain. 12/26/23 noted to tolerate medication changes well, up and moving without LH/Dizziness but onset overnight dark black stools, continued evaluation as noted with temporary hold on eliquis. #2. Suspected Acute GI Bleed with melanotic stools, new onset: New onset black dark stools, initially loose, seeming to resolve, but several early in the AM 12/26/23. Held eliquis. Maintained on IV PPI. GI consulted. 12/26/23 Hgb 13.2- >12/27/23 Hgb 12.5. 12/27/23 Upper endoscopy with LA grade D erosive esophagitis with no bleeding with biopsy performed as well as a nonbleeding gastric ulcer with no stigmata of bleeding oozing duodenal ulcers with visible vessel which was injected and treated with a heater probe. Discussed case with Dr. Ortiz and will discharge patient on high dose BID PPI, carafate BID, hold eliquis for an additional 2 days then allowed to resume and follow-up with GI in 3 weeks. #3. Suspected toxic encephalopathy: CT brain with age-related changes with no acute intracranial findings obtained in the ED. Patient with suspected potential inadvertent overdose of Percocet and baclofen, admitted, held these medications, maintain on fall precautions, no focal presentation and recent outpatient evaluation with MRI unremarkable, maintain on fall precaution, PT/OT for discharge planning. #4. Recent mechanical fall with T12 compression fracture: Encourage continued outpatient follow-up with pain management, encouraged usage of rotating acetaminophen and ibuprofen, given reaction with confusion potentially related with these recent sedated medications encourage avoidance of Percocet or baclofen or potentially reduced intake. 12/24/2019 for concern for mild abnormal cracking when he turns his head, cervical spine plain films with no discrete fracture or subluxation, prominent diffuse spondylosis. #5. Recent history of chest discomfort with mildly elevated troponins, unclear significance, possibly related with underlying renal disease: Patient with complaint of chest discomfort 12/23/2023 however had recent fall, troponin initially 68 with repeat 81-> 81-> now 75 most recently 12/23/2023, EKGs with no acute concerning findings, echocardiogram obtained as noted, continued Lipitor, lasix d/c as noted, added spironolactone low dose per Cardiology recommendation, added metoprolol succinate low dose per Cardiology recommendation. Holding eliquis given #2. #6. Dysphagia: By ST with recommendation for follow-up swallow evaluation study. 12/25/2023 swallow testing with no concerning findings texture and thin liquids with advice of small bites, small sips, slow rate, alternating bites/solids and sips/liquids, sitting upright, remaining upright for 30 minutes after oral intake with recommended speech therapy evaluation and treatment which will be arranged outpatient. #7. Chronic Kidney Disease Stage III, unclear subtype: Admission BUN/Cr 41/1.90, baseline renal function 1.6-1.8, 12/27/23 BUN/Cr 39/1.76. #8. Hypertension: Given low BP upon presentation patient Lasix held; however discussion with Cardiology given worsening EF and noted patient BP range should be systolic 90-100 and given ECHO changes as noted with notably reduced EF cardiology consulted, added low dose spironolactone, low dose metoprolol succinate and lasix discontinued. Will plan usage of lasix PRN only for weight gain with parameters. 12/25/23-12/27/23 BP remained appropriate. #9. Hyperlipidemia: We will continue patient on statin therapy. #10. History of prostate cancer: Status post surgical prostate intervention, considered in remission, encourage continued outpatient follow-up with urology. #11. Anxiety and depression: We will continue patient home duloxetine regimen. #12. PAFlutter: Noted in history, s/p pacemaker placement, as noted holding eliquis regimen, not on rate/rhythm agent prior, recent addition low dose metoprolol as noted. #13. MIKY: CPAP nightly if amenable. #14. DVT prophylaxis: SCDs. Holding home eliquis regimen. #15. CODE status: Full Code. Charges/Coding Visit Charges Inpatient E&M: 53645 Subs Hosp L2
[2023-12-27 07:18] LABS: Absolute Lymphocyte Count 1.77 X10^3/uL (0.83-4.51); Absolute Neutrophil Count 5.6 X10^3/uL (2.0-7.7); Basophil# 0.05 X10^3/uL; Basophil% 0.6 % (0-1); Eosinophil# 0.08 X10^3/uL; Hematocrit 39.3 % (40-54); Hemoglobin 12.5 g/dL (13.0-16.5); Lymphocyte # 1.77 X10^3/ul (0.83-4.51); Lymphocyte % 21.1 % (19-41); Mean Corp Hgb Conc 31.8 g/dL (32-36); Mean Corpuscular Hgb 29.9 pg (27.0-32.0); Mean Platelet Vol. 11.1 fl (6.2-12.0); Monocyte# 0.84 X10^3/uL; NRBC Flagged by Analyzer 0 % (0-5); Neutrophil # 5.62 X10^3/uL (2.7-7.7); Neutrophil % 67.1 % (47-70); Platelet Count 221 K/mm3 (150-450); RBC Distribution Width CV 13.7 % (11.6-14.6); RBC Distribution Width SD 46.9 fl (35.1-43.9); Red Blood Count 4.18 M/mm3 (4.6-6.2); White Blood Count 8.4 K/mm3 (4.4-11.0)
[2023-12-27 08:07] LABS: ALB/GLOB Ratio 0.8 RATIO (0.9-2.4); AST(SGOT) 26 U/L (15-37); Alanine Aminotransfer ALT/SGPT 23 U/L (16-61); Albumin, Serum 2.9 g/dL (3.2-5.0); Alkaline Phosphatase 139 U/L (45-117); Anion Gap 5 (5-15); BUN 39 mg/dL (7-18); BUN/Creat Ratio 22.2 RATIO (10-20); Calcium,Total 8.4 mg/dL (8.5-10.1); Chloride 112 mmol/L (98-107); Creatinine, Serum 1.76 mg/dL (0.70-1.30); EST Glomerular Filtration Rate 39 mL/min (>60); Est Glom Filt Rate - Afr Amer 48 mL/min (>60); Estimated Creatinine Clearance 33.87 ml/min; Globulin 3.6 g/dL (2.2-4.2); Glucose 99 mg/dL (74-106); Potassium 3.7 mmol/L (3.5-5.1); Protein, Total 6.5 g/dL (6.4-8.2); Sodium Level 137 mmol/L (136-145)
[2023-12-27] MEDS: Metoprolol(XL)Succ 25 MG Tablet PO (08:27)
[2023-12-27] MEDS: Folic Acid 1 MG Tablet PO ×2 (08:27→16:45)
[2023-12-27] MEDS: Spironolactone 25 MG Tablet PO (08:27)
[2023-12-27] MEDS: Pantoprazole Sodium 40 MG in 0.9% Normal Saline (100mL MB+) 100 ML 330 MG IV (08:27)
[2023-12-27] MEDS: DULoxetine Hcl 30 MG Capsule PO (08:28)
--- NOTE | 2023-12-27 10:30 | EGD_PTH ---
PATHOLOGY RESULTS PATIENT: BERNY INFANTE LOC: [facility] U#:[id number] AGE/SX: 83/M ROOM: [facility] RE12/26/[address]: Dr. Fabiola Nath MD : 1940 BED: 1 DIS: 12/27/2023 SPEC #: [id number] RECD: 12/28/23 07:34 STATUS: CHANDNI PAULSON #: [id number] KRISTIAN: 12/27/23 10:[address]: Sreekanth Ortiz DEPT: SURGICAL PATHOLOGY RECD BY: Zena Wolfe ENTERED: 12/28/23 07:34 SP TYPE: EGD BIOPSY OTHR DR: MD Dr. Joelle Haji MD Dr. Eric Jopperi, DO Dr. Michael Hughes, MD Tissues: Duodenum, NOS Esophageal mucous membrane Procedures: Special Stain Group II Surgery Specimen Level IV Alcian Blue/PAS (control) Comments: @ Ordering doctor for SUIV edited from to @ by DREW at 12/28/23 1437 @ Submitting doctor edited from to @ by RGOOD at 12/28/23 1437 HEADER OPERATION: Colonoscopy, EGD with biopsies PRE-OP DIAGNOSIS: Toxic encephalopathy TISSUE SUBMITTED: A - Duodenum biopsy, B - Distal esophagus biopsy MICROSCOPIC DIAGNOSIS A. Duodenum, biopsy: A fragment of duodenal mucosa with mild nonspecific chronic inflammation. B. Distal esophagus, biopsy: A fragment of gastroesophageal mucosa with chronic inflammation. Intestinal metaplasia (goblet cell metaplasia) not identified. See comment. SJ:stone 12/29/2023 COMMENT B. Alcian blue/PAS stain with matched control is used in the evaluation of the specimen. The specimen primarily consists of gastric mucosa. MICROSCOPIC DESCRIPTION Slides are reviewed. GROSS DESCRIPTION A - Received in fixative is one container labeled with the patient's name and designated duodenum biopsy. The specimen consists of one irregular fragment of light wen soft tissue that measures 0.5 x 0.5 x 0.1 cm. The specimen is totally submitted in one cassette. B - Received in fixative is one container labeled with the patient's name and designated distal esophagus. The specimen consists of one irregular fragment of light wen soft tissue that measures 0.5 x 0.5 x 0.1 cm. The specimen is totally submitted in one cassette. / AM:stone 12/28/2023 TC:3 CPT: 86581 x2, 54789
[2023-12-27] MEDS: Fluticasone 0.05% 1 SPRAY NASAL.SRY NASAL (10:31)
--- NOTE | 2023-12-27 13:29 | CASEMGMT ---
Addendum entered by Colby Torres 12/27/23 16:59: Pt to DC today and [facility] called and they state they will start care on Monday and will call the pt if they can see him earlier. Original Note: [facility] calls and they state they will start care on Monday unless the pt is DC today. Will follow.
--- NOTE | 2023-12-27 15:30 | OP.EGD_ITS ---
Patient Name: Paul Montero Procedure Date: 12/27/2023 1:43 PM Date of : 1940 Age: 83 Procedure: Upper GI endoscopy Indications: Iron deficiency anemia, Melena Providers: Sreekanth Ortiz DO Medicines: Monitored Anesthesia Care Patient Profile: This is an 83 year old male. Refer to note in patient chart for documentation of history and physical. Patient has symptoms of chronic dyspepsia. Complications: No immediate complications. Procedure: Pre-Anesthesia Assessment: - Prior to the procedure, a History and Physical was performed, and patient medications and allergies were reviewed. The patient is competent. The risks and benefits of the procedure and the sedation options and risks were discussed with the patient. All questions were answered and informed consent was obtained. Patient identification and proposed procedure were verified by the physician in the pre-procedure area. Mental Status Examination: alert and oriented. Airway Examination: normal oropharyngeal airway and neck mobility. Respiratory Examination: clear to auscultation. CV Examination: normal. Prophylactic Antibiotics: The patient does not require prophylactic antibiotics. Prior Anticoagulants: The patient has taken no anticoagulant or antiplatelet agents. ASA Grade Assessment: II - A patient with mild systemic disease. After reviewing the risks and benefits, the patient was deemed in satisfactory condition to undergo the procedure. The anesthesia plan was to use monitored anesthesia care (MAC). Immediately prior to administration of medications, the patient was re-assessed for adequacy to receive sedatives. The heart rate, respiratory rate, oxygen saturations, blood pressure, adequacy of pulmonary ventilation, and response to care were monitored throughout the procedure. The physical status of the patient was re-assessed after the procedure. After obtaining informed consent, the endoscope was passed under direct vision. Throughout the procedure, the patient's blood pressure, pulse, and oxygen saturations were monitored continuously. The pediatric colonoscope was introduced through the mouth, and advanced to the second part of duodenum. The upper GI endoscopy was accomplished without difficulty. The patient tolerated the procedure well. Scope In: 1:57:02 PM Scope Out: 2:00:08 PM Total Procedure Duration Time 0 hours 3 minutes 6 seconds Findings: LA Grade A (one or more mucosal breaks less than 5 mm, not extending between tops of 2 mucosal folds) esophagitis with no bleeding was found 37 to 39 cm from the incisors. Biopsies were taken with a cold forceps for histology. Verification of patient identification for the specimen was done. Estimated blood loss was minimal. One non-bleeding cratered gastric ulcer with no stigmata of bleeding was found in the gastric body. The lesion was 6 mm in largest dimension. Three oozing cratered duodenal ulcers with a visible vessel were found in the duodenal bulb and in the first portion of the duodenum. The largest lesion was 6 mm in largest dimension. Area was successfully injected with 5 mL of a 0.1 mg/mL solution of epinephrine for drug delivery. Coagulation for hemostasis using heater probe was successful. Estimated blood loss was minimal. Impression: - LA Grade A erosive esophagitis with no bleeding. Biopsied. - Non-bleeding gastric ulcer with no stigmata of bleeding. - Oozing duodenal ulcers with a visible vessel. Injected. Treated with a heater probe. Recommendation: - [facility]. - Resume previous diet. - Continue present medications. - Await pathology results. Procedure Code(s): --- Professional --- 72220, 59, Esophagogastroduodenoscopy, flexible, transoral; with control of bleeding, any method 01940, Esophagogastroduodenoscopy, flexible, transoral; with biopsy, single or multiple 83459, 59,51, Esophagogastroduodenoscopy, flexible, transoral; with directed submucosal injection(s), any substance CPT copyright 202 [employer]. All rights reserved. The codes documented in this report are preliminary and upon gas line servicer review may be revised to meet current compliance requirements. Sreekanth Ortiz DO 12/27/2023 3:30:27 PM This report has been signed electronically. Number of Addenda: 0 Note Initiated On: 12/27/2023 1:43 PM
--- NOTE | 2023-12-27 15:31 | OP.CCLET_ITS ---
12/27/2023 Joelle Stern Re : Upper GI endoscopy procedure for Paul Duran Leena This procedure was performed on Wednesday, December 27, 2023. My impressions and recommendations are as follows: Impressions : - LA Grade A erosive esophagitis with no bleeding. Biopsied. - Non-bleeding gastric ulcer with no stigmata of bleeding. - Oozing duodenal ulcers with a visible vessel. Injected. Treated with a heater probe. Recommendations : - [facility]. - Resume previous diet. - Continue present medications. - Await pathology results. My findings are described in the full procedure note, which is enclosed. If I can be of further assistance, please feel free to contact me at . Sincerely, Sreekanth Ortiz, 12/27/2023 3:30:27 PM This report has been signed electronically.
[2023-12-27] MEDS: Acetaminophen 500 MG Tablet 1000 MG PO (16:46)
--- NOTE | 2023-12-27 16:50 | DS.PCM_ITS ---
Providers Date of Admission: 12/26/23 Date of Discharge: 12/27/23 Primary Care Physician: Dr. Joelle Stern MD Consultations 12/25/23 16:52 Consult: Cardiology Routine Consulting Provider: Hitesh Esqueda Reason for Consult: Reduced EF, 50->20%, worsened valve disease, small pericar eff EMERGENT Consult: No MD Notified: Yes Date Notified: 12/25/23 Time Notified: 16:52 Method of Notification: Verbal 12/26/23 09:31 Consult: Gastroenterology Routine Consulting Provider: [facility] Reason for Consult: Melanotic stools, on eliquis EMERGENT Consult: No MD Notified: Yes Date Notified: 12/26/23 Time Notified: 09:31 Method of Notification: Text Reason For Visit: ENCEPHALOPATHY Diagnosis Discharge Diagnosis (1) Toxic encephalopathy: Status: Acute Code(s): G92.9 - Unspecified toxic encephalopathy Plan: DISCHARGE DIAGNOSES: #1. HFrEF/nonischemic cardiomyopathy w/ Worsened EF, Valvular Disease, Small pericardial effusion with Hx Sick Sinus Syndrome #2. Suspected Acute GI Bleed with melanotic stools, new onset with ABLA (LA grade D erosive esophagitis with no bleeding with biopsy performed as well as a nonbleeding gastric ulcer with no stigmata of bleeding oozing duodenal ulcers with visible vessel which was injected and treated with a heater probe) #3. Suspected toxic encephalopathy with suspected potential inadvertent overdose of Percocet and baclofen #4. Recent mechanical fall with T12 compression fracture #5. Recent history of chest discomfort with mildly elevated troponins, unclear significance, possibly related with underlying renal disease and demand #6. Dysphagia, moderate oropharyngeal #7. Chronic Kidney Disease Stage III, unclear subtype #8. Hypertension #9. Hyperlipidemia #10. History of prostate cancer #11. Anxiety and depression #12. PAFlutter #13. MIKY on CPAP q HS Medications at Discharge Home Medications folic acid 1 mg tablet 1 mg PO BID supplement 10/11/21 vitamin B complex 1 cap PO BID vitamin 10/11/21 rosuvastatin 20 mg tablet 20 mg PO DAILY cholesterol 12/16/21 apixaban 2.5 mg tablet (Eliquis) 2.5 mg PO BID blood thinner 03/23/23 duloxetine 30 mg capsule,delayed release 30 mg PO BID DEPRESSION 12/15/23 polyethylene glycol 3350 17 gram/dose oral powder (Miralax) 17 g PO DAILY PRN co nstipation 12/23/23 furosemide 40 mg tablet (Lasix) 40 mg PO DAILY PRN Weight gain > 5 lbs #20 tabs 12/25/23 metoprolol succinate 25 mg tablet,extended release 24 hr 25 mg PO DAILY 30 days #30 tabs 12/25/23 spironolactone 25 mg tablet 25 mg PO DAILY 30 days #30 tabs 12/25/23 fluticasone propionate 50 mcg/actuation nasal spray,suspension 1 spray NASAL BID 30 days #16 grams 12/27/23 pantoprazole 40 mg tablet,delayed release (Protonix) 40 mg PO BID 30 days #60 tabs 12/27/23 sucralfate 1 gram tablet (Carafate) 1 g PO BID 30 days #60 tabs 12/27/23 Hospital Course Operations None Procedures 2-D Echocardiogram, EGD and EKG Summary of Care Provided Minutes Spent on Discharge: 35 Hospital Course: The patient is an 82 y/o M w/ PMHx: PAFlutter, Depression and Anxiety, MIKY, HFrEF/Nonischemic cardiomyopathy, HTN, HLD, PAF, Hx Prostate CA s/p prostate surgery, CKD stage III unclear subtype, Symptomatic bradycardia s/p pacemaker s liam who presented to the [facility] ED on 12/23/23 with history of confusion with recent prescription started for Percocet as well as baclofen secondary to fall with T12 compression fracture evaluated by ER as well as pain management with concern for inadvertently taking too much with workup including brain MRI that was unremarkable prompting eventual admission.Upon presentation noted to be on Eliquis, statin, not on beta pilar with history of symptomatic bradycardia requiring pacemaker, not on ACEI/ARB upon presentation and on MWF lasix only. Lasix held because of lower BP during presentation. ECHO with noted concentric left ventricular hypertrophy, EF 25 %, diastolic function indeterminate, mod erate biatrial dilatation, moderately severe (3+) eccentric mitral valve insufficiency, RSVP 50 mmHg, small pericardial effusion. Given ECHO changes as noted with notably reduced EF cardiology consulted, added low dose spironolactone, low dose metoprolol succinate and lasix discontinued. Cardiology noting intention for possibly addition of ARB on an outpatient bases depending on re-evaluation. Cardiology also noted plan of daily weight and if increase by > 5 lbs lasix 40 mg po PRN weight gain. During admission new onset black dark stools, initially loose, seeming to resolve, but several early in the AM 12/26/23. Held eliquis. Maintained on IV PPI. GI consulted. 12/26/23 Hgb 13.2->12/27/23 Hgb 12.5. 12/27/23 Upper endoscopy with LA grade D erosive esophagitis with no bleeding with biopsy performed as well as a nonbleeding gastric ulcer with no stigmata of bleeding oozing duodenal ulcers with visible vessel which was injected and treated with a heater probe. Discussed case with Dr. Ortiz and wi ll discharge patient on high dose BID PPI, carafate BID, hold eliquis for an additional 2 days then allowed to resume and follow-up with GI in 3 weeks. Given confusion upon presentation, suspected toxic encephalopathy w/ CT brain with age-related changes with no acute intracranial findings obtained in the ED. Patient with suspected potential inadvertent overdose of Percocet and baclofen, admitted, held these medications. Encourage continued outpatient follow-up with pain management, encouraged usage of rotating acetaminophen and IBU initially but with GI bleed recommended avoidance of all NSAIDS. Patient with noted dysphagia complaint with ST recommendation for follow-up swallow evaluation s tanika. 12/25/2023 swallow testing with no concerning findings texture and thin liquids with advice of small bites, small sips, slow rate, alternating bites/solids and sips/liquids, sitting upright, remaining upright for 30 minutes after oral intake with recommended speech therapy evaluation and treatment ongoing outpatient. Admission BUN/Cr 41/1.90, baseline renal function 1.6-1.8, 12/27/23 BUN/Cr 39/1.76. Patient clinically improved with regimen changes as noted and plan of care as noted with follow-up with PCP, GI and Cardiology as noted. Weight / BMI Weight Weight: 173 lb 8.061 oz Body Mass Index (BMI) 32.4 ABG / Lab / Microbiology Data 12/27/23 07:00 12/27/23 07:00 Laboratory: Laboratory Results - last 24 hr 12/26/23 16:43: Hgb 13.2, Hct 40.8 12/27/23 07:00: WBC 8.4, RBC 4.18 L, Hgb 12.5 L, Hct 39.3 L, MCV 94.0, MCH 29.9, MCHC 31.8 L, RDW Std Deviation 46.9 H, RDW Coeff of [place] 13.7, Plt Count 221, MPV 11.1, Immature Gran % (Auto) 0.200, Neut % (Auto) 67.1, Lymph % (Auto) 21.1, Mon o % (Auto) 10.0, Eos % (Auto) 1.0, Baso % (Auto) 0.6, Absolute Neuts (auto) 5.6, Absolute Lymphs (auto) 1.77, Nucleated RBC % 0, Sodium 137, Potassium 3.7, Chloride 112 H, Carbon Dioxide 20.0 L, Anion Gap 5, BUN 39 H, Creatinine 1.76 H, Estim Creat Clear Calc 33.87, Est GFR (MDRD) Af Amer 48 L, Est GFR (MDRD) Non-Af 39 L, BUN/Creatinine Ratio 22.2 H, Glucose 99, Calcium 8.4 L, Total Bilirubin 0.70, AST 26, ALT 23, Alkaline Phosphatase 139 H, Total Protein 6.5, Albumin 2.9 L, Globulin 3.6, Albumin/Globulin Ratio 0.8 L Microbiology: Microbiology 12/26/23 08:43 Stool Stool Occult Blood (AGUS) - Final Occult Blood Positive D/C Instructions Discharge Diet: Low fat / Low cholesterol May resume sexual activity in: 10-14 days Weight Bearing Status: Weight bearing as tolerated Call your doctor if you observe: Fever of 101 or Higher, Numbness or Tingling, Inability to urinate, Shortness of breath, Dizziness, Swelling in the ankles, Chest pain, Increased palpitations (irregular heartbeat), Calf discomfort, Unc ontrolled pain and - (Any recurrent black tarry appearing stools. Notify Dr. Ortiz office.) Meaningful Use Info Meaningful Use Diagnoses (Choose all that apply): None applicable Discharge Plan Admission Admit Date/Time: 12/26/23 14:57 Primary Reason for Your Visit: Encephalopathy, Fall w/ T12 comp Fx, Reduced EF/Elevat Trop, GI bleed Attending Provider: Fabiola Nath Primary Care Provider: Joelle Stern Consulting Providers: Ryley Osuna; Hitesh Esqueda Instructions Additional Instructions / Restrictions: EVALUATED DURING ADMISSION: #1. Suspected toxic encephalopathy: CT brain with age-related changes with no acute intracranial findings obtained in the ED. Suspected potential inadvertent overdose of Percocet and baclofen which was held with noted. Given recently noted GI bleed DO NOT TAKE ANY ibuprofen. You may use tylenol as needed (650 mg every 4 hours OR you can take 800 mg three times daily). #2. Recent mechanical fall with T12 compression fracture: Encourage continued outpatient follow-up with pain management, acetaminophen as needed and AVOIDANCE OF ALL NSAIDS (ie. Ibuprofen) given GI bleed as noted. Plain film of the cervic al spine with no acute findings also. #3. Chest discomfort with mildly elevated troponins, unclear significance w/ incidentally noted: EKG with no acute concerning findings, cardiac enzymes obtained initially 68 with repeat 81->81->75 most recently 12/23/2023, echocardiogram ordered. Maintained on Eliquis, statin, not on beta pilar with history of symptomatic bradycardia requiring pacemaker, not on ACEI/ARB upon presentation. Given ECHO changes as noted with notably reduced EF cardiology consulted, added low dose spironolactone, low dose metoprolol succinate and la six discontinued. ECHO with noted concentric left ventricular hypertrophy, EF 25 %, diastolic function indeterminate, moderate biatrial dilatation, moderately severe (3+) eccentric mitral valve insufficiency, RSVP 50 mmHg, small pericardial effusion. We have recommended follow-up at discharge with your cardiology service and they note intention for possibly addition of ARB on an outpatient bases depending on your re-evaluation. Lasix will be used only as needed for weight gain > 5 lbs with need to notify your Cardiology office if you do indeed need to use the medication. #4. Oropharyngeal Dysphagia: Speech therapy with recommendation for follow-up swallow evaluation study. 12/25/2023 swallow testing with no concerning findings texture and thin liquids with advice of small bites, small sips, slow rate, alternating bites/solids and sips/liquids, sitting upright, remaining upright for 30 minutes after oral intake with recommended speech therapy evaluation and treatment which will be arranged outpatient. #5. HFrEF/nonischemic cardiomyopathy with Hx Sick Sinus Syndrome w/ worsening reduced function, small pericardial effusion, valvular heart disease: Upon presentation noted to be on Eliquis, statin, not on beta pilar with history of symptomatic bradycardia requiring pacemaker, not on ACEI/ARB upon presentation and on MWF lasix only. Lasix held because of lower BP during presentation. ECHO with noted concentric left ventricular hypertrophy, EF 25 %, diastolic function indeterminate, moderate biatrial dilatation, moderately severe (3+) eccentric mitral valve insufficiency, RSVP 50 mmHg, small pericardial effusion. Given ECHO changes as noted with notably reduced EF cardiology consulted, added low dose spironolactone, low dose metoprolol succinate and lasix discontinued. We have recommended follow-up at discharge with your cardiology service and they note intention for possibly addition of ARB on an outpatient bases depending on your re-evaluation. Cardiology also requested that you take your daily weight and if you increase by > 5 lbs they recommend usage of lasix 40 mg po PRN weight gain > 5 lbs but at the same time you should notify your cardiology office if this is the case. #6. Acute GI Bleed with melanotic stools with associated blood loss anemia: GI consulted. 12/26/23 Hgb 13.2->12/27/23 Hgb 12.5. 12/27/23 Upper endoscopy with LA grade D erosive esophagitis with no bleeding with biopsy performed as well as a nonbleeding gastric ulcer with no stigmata of bleeding oozing duodenal ulcers with visible vessel which was injected and treated with a heater probe. Discus sed case with Dr. Ortiz and you will be discharged on high dose twice daily protonix, carafate twice daily and will plan to hold eliquis for an additional 2 days then allowed to resume and follow-up with GI in 3 weeks. Please have repeat complete blood count with your primary care physician at follow-up. Discharge Orders/Prescriptions Prescriptions: New spironolactone 25 mg Tablet 25 mg PO DAILY 30 Days Qty: 30 0RF metoprolol succinate 25 mg Tablet Extended Release 24 Hr 25 mg PO DAILY 30 Days Qty: 30 0RF furosemide [Lasix] 40 mg tablet 40 mg PO DAILY PRN (Reason: Weight gain > 5 lbs) Qty: 20 0RF Rx Instructions: Notify your cardiology if you use the medication. fluticasone propionate 50 mcg/actuation [place],Suspension 1 spray NASAL BID 30 Days Qty: 16 0RF pantoprazole [Protonix] 40 mg tablet,delayed release (DR/EC) 40 mg PO BID 30 Days Qty: 60 0RF sucralfate [Carafate] 1 gram tablet 1 g PO BID 30 Days Qty: 60 0RF Continued rosuvastatin 20 mg tablet 20 mg PO DAILY Patient Comments: take 1 tablet by mouth every morning folic acid 1 mg Tablet 1 mg PO BID vitamin B complex Capsule 1 cap PO BID duloxetine 30 mg capsule,delayed release(DR/EC) 30 mg PO BID Hold Instructions: Resume on 12/25/23. polyethylene glycol 3350 [Miralax] 17 gram/dose powder 17 g PO DAILY PRN (Reason: constipation) Held Eliquis 2.5 mg tablet 2.5 mg PO BID Hold Instructions: Resume on 12/30/23. Patient Comments: take 1 tablet by mouth twice a day Discontinued zolpidem 12.5 mg tablet,ext release multiphase 12.5 mg PO QHS Patient Comments: take 1 tablet by mouth at bedtime if needed baclofen 5 mg tablet 5 mg PO TID PRN (Reason: muscle spasm) 5 Days Qty: 15 0RF oxycodone-acetaminophen 5-325 mg tablet 1 tab PO TID PRN (Reason: ACUTE PAIN) Patient Comments: take 1 tablet by mouth three times a day if needed for ACUTE PAIN furosemide [Lasix] 40 mg tablet 40 mg PO MOWEFR Referrals / Follow Up: Joelle Stern MD [Primary Care Provider] - See Referral Note (Please follow-up within 3-5 days to review admission. Please review admission and changes to your medications.) Hitesh Esqueda MD [Med Staff - Active Staff] - (Follow-up within 2 weeks for re-evaluation, consideration further regimen changes. Call office earlier if any concerns arise.) Disposition Disposition (needs filled in before D/C Order can be placed): Home Health Service Charges/Coding Visit Charges Inpatient E&M: 48974 Disch Hosp >30min
== END 2023-12-27 17:38 | disposition home health service (06) | DRG 917 ==
LOC: ED 04:10 → MS3 10:20 → PCU 17:06
PROVIDERS: Emergency Medicine; Internal Medicine Gastroenterology; Emergency Provider Emergency Medicine; PCP Internal Medicine; Visit Provider Family Medicine
PROC: 0DJD8ZZ Inspection of Lower Intestinal Tract, Via Natural or Artificial Opening Endoscopic (ICD-10-PCS; CPT 45378; principal; 2023-12-27 10:25)
DX: T40.2X1A Poisoning by other opioids, accidental (unintentional), initial encounter (principal); K26.4 Chronic or unspecified duodenal ulcer with hemorrhage; G92.9 Unspecified toxic encephalopathy; S22.089A Unspecified fracture of T11-T12 vertebra, initial encounter for closed fracture; I31.39 Other pericardial effusion (noninflammatory); I13.0 Hypertensive heart and chronic kidney disease with heart failure and stage 1 through stage 4 chronic kidney disease, or unspecified chronic kidney disease; I42.8 Other cardiomyopathies; I50.22 Chronic systolic (congestive) heart failure; I48.92 Unspecified atrial flutter; D62 Acute posthemorrhagic anemia; N18.32 Chronic kidney disease, stage 3b; I49.5 Sick sinus syndrome; I48.0 Paroxysmal atrial fibrillation; D63.1 Anemia in chronic kidney disease; F32.A Depression, unspecified; I34.0 Nonrheumatic mitral (valve) insufficiency; G47.33 Obstructive sleep apnea (adult) (pediatric); E78.5 Hyperlipidemia, unspecified; I25.10 Atherosclerotic heart disease of native coronary artery without angina pectoris; F41.9 Anxiety disorder, unspecified; K20.80 Other esophagitis without bleeding; W00.0XXA Fall on same level due to ice and snow, initial encounter; I44.7 Left bundle-branch block, unspecified; K25.9 Gastric ulcer, unspecified as acute or chronic, without hemorrhage or perforation; T42.8X1A Poisoning by antiparkinsonism drugs and other central muscle-tone depressants, accidental (unintentional), initial encounter; Z95.0 Presence of cardiac pacemaker; R13.12 Dysphagia, oropharyngeal phase; R07.89 Other chest pain; R77.8 Other specified abnormalities of plasma proteins; Z79.01 Long term (current) use of anticoagulants; Z79.899 Other long term (current) drug therapy; Z85.46 Personal history of malignant neoplasm of prostate
CPT/HCPCS: 36415; 70450; 71045; 72040; 74230; 80048; 80053; 80061; 80307; 80320; 81001; 82274; 83735; 84484; 85014; 85018; 85025; 88305; 88313; 92523; 92610; 92611; 93005; 93306; 97110; 97116; 97162; 97166; 97530; 97535; 99285; J7030; J7040; A4216; G0480; J2405

== ENCOUNTER → 2024-01-03 | Outpatient (CLI) | payer MEDICARE, SELFPAY ==
--- NOTE | 2024-01-03 11:46 | BD_ITS ---
STUDY: DUAL ENERGY X-RAY ABSORPTIOMETRY / DXA REASON FOR EXAM: Male, 83 years old. M80.08XA TECHNIQUE: Bone Mineral Density (BMD) measurements of lumbar spine and left hip were obtained. COMPARISON: None. FINDINGS: Lumbar Spine (L1-L4): g/cm2 (1.107) / T-score (-0.1) / Z-score (1.) Findings are suggestive of normal bone density with a fracture risk. Left Femur Total: g/cm2 (0.937) / T-score (-0.6) / Z-score (0.6) Left Femoral Neck: g/cm2 (0.681) / T-score (-1.8) / Z-score (-0.2) BD/Dexa Bone Density Study IMPRESSION: The patient is considered osteopenic as outlined below according to World Henry Organization (WHO) criteria with a moderate fracture risk. Reference Information: The T-score is the number of standard deviations above or below the standard which is normal for young adults at their peak bone mineral density. The World Health Organization (WHO) interprets the T-scores as follows: Above -1 Normal bone density Between -1 and -2.5 Osteopenia Equal to / or below -2.5 Osteoporosis As a practical clinical guideline, osteopenia may be graded as follows: Mild -1 through -1.5 Moderate -1.6 through -2.0 Severe -2.1 through -2.4 The Z-score is the number of standard deviations above or below age-matched controls. A Z-score of less than -1.5 would be considered abnormal. References: 1. NIH Osteoporosis and Related Bone Diseases www osteo.org 2. International Society for Clinical Densitometry www iscd.org 3. National Osteoporosis Foundation www nof.org Electronically Signed: Konstantin Gonsales MD at 10:06 EST ,
== END | disposition home or self-care (01) ==
LOC: OPBD 11:45
PROVIDERS: PCP Internal Medicine; Referring Provider Anesthesiology Pain Medicine; Visit Provider Anesthesiology Pain Medicine
DX: M80.08XA Age-related osteoporosis with current pathological fracture, vertebra(e), initial encounter for fracture (principal); X58.XXXA Exposure to other specified factors, initial encounter
CPT/HCPCS: 77080

== ENCOUNTER → 2024-01-16 | Outpatient (CLI) | payer MEDICARE, SELFPAY ==
[2024-01-16 15:53] LABS: Potassium 4.8 mmol/L (3.5-5.1)
== END | disposition home or self-care (01) ==
PROVIDERS: PCP Internal Medicine; Referring Provider Internal Medicine; Visit Provider Internal Medicine
DX: E87.5 Hyperkalemia (principal)
CPT/HCPCS: 36415; 84132

== ENCOUNTER → 2024-01-17 | Outpatient (CLI) | payer MEDICARE, SELFPAY ==
--- NOTE | 2024-01-17 13:25 | RAD_ITS ---
STUDY: X-RAY CHEST REASON FOR EXAM: Male, 83 years old. Shortness of breath. Evaluate for congestive failure. TECHNIQUE: Frontal and lateral views of the chest. COMPARISON: 12/23/2023 FINDINGS: Stable cardiomegaly with dual lead cardiac pacer, aortic tortuosity with calcification and prominent central pulmonary arteries. Slight increased bilateral diffuse interstitial prominence, right greater than left with substantial increase in bilateral pleural effusions, right greater than left. Diffuse moderate thoracic spondylosis unchanged. Osteoarthrosis of both glenohumeral joints, right greater than left, unchanged. No abnormality of the visualized soft tissue structures of the upper abdomen. RAD/Chest PA and Lateral IMPRESSION: Findings compatible with worsening interstitial edema/congestive failure with effusions, right greater than left. Follow-up chest imaging to resolution recommended. Electronically Signed: Salomón Woodall MD at 13:53 EST ,
== END | disposition home or self-care (01) ==
LOC: RAD 12:29
PROVIDERS: PCP Internal Medicine; Referring Provider Internal Medicine Cardiovascular Disease; Visit Provider Internal Medicine Cardiovascular Disease
DX: R06.02 Shortness of breath (principal); I42.8 Other cardiomyopathies
CPT/HCPCS: 71046

== ENCOUNTER 2024-01-21 18:12 | Inpatient (IN) | payer MEDICARE, SELFPAY ==
[2024-01-21 18:14] VITALS: BP 106/68; PULSE 62; RESP 18; TEMP 36; O2SAT 93; BMI 25.7
--- NOTE | 2024-01-21 18:29 | ED.VIS.FALL ---
HPI <NEY White - Last Filed: 01/21/24 19:58> HPI - Fall History of Present Illness Chief Complaint: Fall Narrative Narrative: Patient was standing up from his dining room chair and lost his balance and fell landing on his right hip. No head injury. He was unable to get up and was brought in by EMS. He has no weakness or numbness or tingling. No new back pain. He states he broke his T12 vertebra in November and is still healing. He is on Eliquis with history of A-fib and pacemaker. [facility] <NEY White - Last Filed: 01/21/24 19:58> [facility] Medical History (Updated 01/21/24 @ 20:[address] Heber Young DO) Atrial flutter CKD (chronic kidney disease), stage III Depression Dyspnea Fall Fatigue HFrEF (heart failure with reduced ejection fraction) History of hay fever HTN (hypertension) Hyperkalemia, diminished renal excretion Hyperlipidemia Left bundle branch block (LBBB) Left ventricular diastolic dysfunction LVH (left ventricular hypertrophy) Non-ischemic cardiomyopathy Obstructive sleep apnea Prostate cancer Sick sinus syndrome Home Medications folic acid 1 mg tablet 1 mg PO BID supplement 10/11/21 [History Last Taken 12/15/21] vitamin B complex 1 cap PO BID vitamin 10/11/21 [History Last Taken 12/15/21] rosuvastatin 20 mg tablet 20 mg PO DAILY cholesterol 12/16/21 [History Last Taken 12/15/21] apixaban 2.5 mg tablet (Eliquis) 2.5 mg PO BID blood thinner 03/23/23 [History Last Taken Unknown] duloxetine 30 mg capsule,delayed release 30 mg PO BID DEPRESSION 12/15/23 [History Last Taken Unknown] metoprolol succinate 25 mg tablet,extended release 24 hr 25 mg PO DAILY 30 days #30 tabs 12/25/23 [Rx Last Taken Unknown] spironolactone 25 mg tablet 25 mg PO DAILY 30 days #30 tabs 12/25/23 [Rx Last Taken Unknown] fluticasone propionate 50 mcg/actuation nasal spray,suspension 1 spray NASAL BID 30 days #16 grams 12/27/23 [Rx Last Taken Unknown] pantoprazole 40 mg tablet,delayed release (Protonix) 40 mg PO BID 30 days #60 tabs 12/27/23 [Rx Last Taken Unknown] sucralfate 1 gram tablet (Carafate) 1 g PO BID 30 days #60 tabs 12/27/23 [Rx Last Taken Unknown] losartan 25 mg tablet 25 mg PO DAILY #30 tabs 01/17/24 [Rx Last Taken Unknown] furosemide 40 mg tablet (Lasix) 40 mg PO DAILY 01/21/24 [History Last Taken Unknown] Allergy/AdvReac Type Severity Reaction Status Date / Time Iodinated Contrast Media Allergy Severe Shortness Verified 01/21/24 18:13 of breath iodine Allergy Shortness Verified 01/21/24 18:13 of breath Surgical History History of left heart catheterization (12/17/21) History of prostate surgery History of total bilateral knee replacement Hx of appendectomy Social History household members: spouse Smoking Status: Never smoker alcohol intake: current alcohol intake frequency: 0-2 drinks per day Alcohol type: beer, wine and hard liquor details: 1 drink per night substance use type: does not use caffeine: Yes Type: coffee Number of servings: 2 what type of physical activity do you participate in: walking frequency: daily seatbelt use: always ROS <NEY White - Last Filed: 01/21/24 19:58> ROS ED ROS Narrative CVS: Negative for chest pain. Respiratory: Negative for shortness of breath. Neuro: Negative for motor/sensory dysfunction. Skin: Negative for abrasions or lacerations. Musc: Positive for right hip pain, trauma. EXAM <NEY White - Last Filed: 01/21/24 19:58> Physical Exam Narrative Exam Narrative: CONST: Patient sitting in no acute distress. EYES: Normal inspection. HEAD: Head normocephalic atraumatic, no raccoon eyes or murray sign, no hemotympanum, no nasal septal hematoma, no CSF otorrhea or rhinorrhea. NECK: Normal inspection. No midline spinal tenderness, no step off or crepitus. RESP: No respiratory distress, CTAB. Chest wall nontender. CVS: Regular rate and rhythm, no murmur, no gallop. ABD: Soft and nontender, no guarding or rebound, nondistended. Back: Normal inspection, no midline tenderness. SKIN: Color normal, no rash, warm, dry, intact. EXTREMITIES: Upper extremities nontender, full ROM, 2+ radial pulses. Pelvis stable. Normal inspection of lower extremities, no shortening or rotation, no reproducible tenderness to the pelvis or hip but pain with right logroll. No tenderness of the knee or ankle. 2+ DP pulses. 2+ bilateral ankle edema is chronic. NEURO: Oriented x4. PSYCH: Normal affect. Const Vital Signs: 01/21/24 18:14 01/21/24 20:12 Temperature 96.8 F L 98 F Temperature Source Temporal Pulse Rate 62 68 Respiratory Rate 18 13 Blood Pressure 106/68 93/66 Blood Pressure Mean 80 75 Pulse Ox 93 93 Oxygen Delivery Method Room Air <Dr. John Ortiz MD - Last Filed: 01/21/24 20:22> Physical Exam Const Vital Signs: 01/21/24 18:14 01/21/24 20:12 Temperature 96.8 F L 98 F Temperature Source Temporal Pulse Rate 62 68 Respiratory Rate 18 13 Blood Pressure 106/68 93/66 Blood Pressure Mean 80 75 Pulse Ox 93 93 Oxygen Delivery Method Room Air MDM <NEY White - Last Filed: 01/21/24 19:58> [facility] MDM Narrative Medical decision making narrative: Differential: Hip contusion, pelvis or hip fracture Consults: Orthopedics, hospitalist Patient had mechanical fall landing on his right hip. No head injury. Pelvis is stable. Normal inspection of the lower extremities. No shortening or rotation. Pain with right logroll. Distal pulses intact. X-ray shows right femoral neck fracture. Pain is managed adequately with IV morphine and Zofran. Case was discussed with Dr. Reaves who states surgery and likely will be tomorrow. N.p.o. after midnight. Case will be discussed with the hospitalist for admission. I have personally performed a face to face assessment of the patient and have reviewed the ANGEL Note. I performed a substantive portion of the visit including all aspects of the following. My sims findings include: History is 83-year-old male was at home in the kitchen a fell injuring his right hip. Did not hit his head no other injuries. Prior to the fall he felt fine. Exam is [well-appearing 83-year-old male sitting upright in bed. at bedside. Vital signs are stable afebrile. HEENT exam pupils round reactive light no signs of trauma to his head or scalp nontender. No hematoma. C-spine and neck nontender. Lungs clear chest wall and ribs nontender. Heart regular rhythm rate about 60 no murmur. Abdomen soft nontender. Pelvic girdle intact. Tenderness right hip. Pain with movement of right hip. No significant shortening or. Mild external rotation. Left lower extremity nontender. Dorsi plantarflexion intact bilaterally. Normal sensation. 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 Neurologically is awake and alert with no focal motor deficits.] Medical Decision Making [83-year-old male fell concern for hip fracture versus contusion x-ray being obtained.] Other additions or changes: [None] Lab Data Labs: Laboratory Results - last 24 hr 01/21/24 19:50 WBC 6.1 RBC 4.63 Hgb 14.2 Hct 43.7 MCV 94.4 H MCH 30.7 MCHC 32.5 RDW Std Deviation 54.0 H RDW Coeff of Laney 15.9 H Plt Count 198 MPV 11.8 Immature Gran % (Auto) 0.300 Neut % (Auto) 66.5 Lymph % (Auto) 22.3 [place] % (Auto) 8.2 Eos % (Auto) 2.0 Baso % (Auto) 0.7 Absolute Neuts (auto) 4.1 Absolute Lymphs (auto) 1.37 Nucleated RBC % 0 Radiography Diagnostic Testing: Clinical Impression(s) from Imaging Studies Hip/Pelvis X-Ray 01/21/24 19:15 IMPRESSION: 1. There is a lucent area along the right femoral neck concerning for a left femoral neck fracture. 2. Mild degenerative findings in both hips. Electronically Signed: Vidal Casiano MD at 19:40 EST , ADDENDUM: 01/21/242017 IMPRESSION: 1. There is a lucent area along the right femoral neck concerning for a RIGHT femoral neck fracture. 2. Mild degenerative findings in both hips. Electronically Signed: Vidal Casiano MD at 20:11 EST , ADDENDUM: 01/21/242018 IMPRESSION: 1. There is a lucent area along the right femoral neck concerning for a left femoral neck fracture. 2. Mild degenerative findings in both hips. Electronically Signed: Vidal Casiano MD at 19:40 EST , ADDENDUM: 01/21/242019 IMPRESSION: 1. There is a lucent area along the right femoral neck concerning for a RIGHT femoral neck fracture. 2. Mild degenerative findings in both hips. Electronically Signed: Vidal Casiano MD at 20:11 EST , ED attending interpretation of right hip x-ray shows acute femoral neck fracture. EKG Initial EKG: Attestation: I personally reviewed and interpreted this EKG as follows: Interpretation: Sinus Rhythm and No Acute Injury Pattern Comments: Sinus rhythm with first-degree AV block Left axis deviation Left bundle branch block (chronic) Prior EKG tracings: available for review <Dr. John Ortiz MD - Last Filed: 01/21/24 20:22> [facility] Narrative Medical decision making narrative: Differential: Hip contusion, pelvis or hip fracture Patient had mechanical fall landing on his right hip. No head injury. Pelvis is stable. Normal inspection of the lower extremities. No shortening or rotation. Pain with right logroll. Distal pulses intact. I have personally performed a face to face assessment of the patient and have reviewed the ANGEL Note. I performed a substantive portion of the visit including all aspects of the following. My sims findings include: History is 83-year-old male was at home in the kitchen a fell injuring his right hip. Did not hit his head no other injuries. Prior to the fall he felt fine. Exam is [well-appearing 83-year-old male sitting upright in bed. at bedside. Vital signs are stable afebrile. HEENT exam pupils round reactive light no signs of trauma to his head or scalp nontender. No hematoma. C-spine and neck nontender. Lungs clear chest wall and ribs nontender. Heart regular rhythm rate about 60 no murmur. Abdomen soft nontender. Pelvic girdle intact. Tenderness right hip. Pain with movement of right hip. No significant shortening or. Mild external rotation. Left lower extremity nontender. Dorsi plantarflexion intact bilaterally. Normal sensation. 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 Neurologically is awake and alert with no focal motor deficits.] Medical Decision Making [83-year-old male fell concern for hip fracture versus contusion x-ray being obtained.] Other additions or changes: [None] History & Record Review Discussion w/independent historian: Patient and Family Additional record(s) reviewed:: Prior inpatient record, Prior outpatient record, Prior ED visit, Prior labs and No prior records Lab Data Attestation: I reviewed the patient's lab results. Lab results narrative: CBC normal. White count of 6. H&H 14 and 43. Platelets 198. Labs: Laboratory Results - last 24 hr 01/21/24 19:50 WBC 6.1 RBC 4.63 Hgb 14.2 Hct 43.7 MCV 94.4 H MCH 30.7 MCHC 32.5 RDW Std Deviation 54.0 H RDW Coeff of Laney 15.9 H Plt Count 198 MPV 11.8 Immature Gran % (Auto) 0.300 Neut % (Auto) 66.5 Lymph % (Auto) 22.3 Wy[place] % (Auto) 8.2 Eos % (Auto) 2.0 Baso % (Auto) 0.7 Absolute Neuts (auto) 4.1 Absolute Lymphs (auto) 1.37 Nucleated RBC % 0 Radiography Diagnostic Testing: Clinical Impression(s) from Imaging Studies Hip/Pelvis X-Ray 01/21/24 19:15 IMPRESSION: 1. There is a lucent area along the right femoral neck concerning for a left femoral neck fracture. 2. Mild degenerative findings in both hips. Electronically Signed: Vidal Casiano MD at 19:40 EST , ADDENDUM: 01/21/242017 IMPRESSION: 1. There is a lucent area along the right femoral neck concerning for a RIGHT femoral neck fracture. 2. Mild degenerative findings in both hips. Electronically Signed: Vidal Casiano MD at 20:11 EST , ADDENDUM: 01/21/242018 IMPRESSION: 1. There is a lucent area along the right femoral neck concerning for a left femoral neck fracture. 2. Mild degenerative findings in both hips. Electronically Signed: Vidal Casiano MD at 19:40 EST , ADDENDUM: 01/21/242019 IMPRESSION: 1. There is a lucent area along the right femoral neck concerning for a RIGHT femoral neck fracture. 2. Mild degenerative findings in both hips. Electronically Signed: Vidal Casiano MD at 20:11 EST , Discharge Plan Dx/Rx/DC Orders Clinical Impression: Closed fracture of right hip, Fall, History of cardiac pacemaker, Chronic anticoagulation, History of atrial fibrillation Disposition Disposition: Acute Care Hospital [facility]
[2024-01-21] MEDS: Morphine 4 MG/ML Syringe IV (19:08)
[2024-01-21] MEDS: Ondansetron 4 MG/2 ML Vial IV (19:08)
--- NOTE | 2024-01-21 19:15 | RAD_ITS ---
EXAM: XR RIGHT HIP WITH PELVIS WHEN PERFORMED, 2 OR 3 VIEWS CLINICAL INDICATION: pain TECHNIQUE: Two or three views of the right hip with pelvis when performed. COMPARISON: No relevant prior studies available. FINDINGS: BONES/JOINTS: There is a lucent area along the right femoral neck concerning for a left femoral neck fracture. Mild degenerative findings in both hips. Degenerative findings in the lumbar spine. Sacroiliac joint is unremarkable. No widening of the pubic symphysis. SOFT TISSUES: Unremarkable. No soft tissue swelling or gas. RAD/HIP, UNI W/ Pelvis 2-3 Views IMPRESSION: 1. There is a lucent area along the right femoral neck concerning for a left femoral neck fracture. 2. Mild degenerative findings in both hips. Electronically Signed: Vidal Casiano MD at 19:40 EST ,
--- NOTE | 2024-01-21 19:27 | EKG12_ITS ---
Test Reason : DYSRHYTHMIA Blood Pressure : / mmHG Vent. Rate : 065 BPM Atrial Rate : 065 BPM P-R Int : 328 ms QRS Dur : 160 ms QT Int : 516 ms P-R-T Axes : 077 -30 158 degrees QTc Int : 536 ms Sinus rhythm with 1st degree A-V block with occasional atrial-paced complexes and Premature atrial co mplexes with Aberrant conduction Left axis deviation Left bundle branch block Abnormal ECG Confirmed by Hitesh Esqueda ([id number]), script editor HINA RAYMUNDO ([id number]) on 01/22/2024 10:37:48 AM Referred By: Confirmed By:Hitesh Esqueda
--- NOTE | 2024-01-21 19:56 | PCM.HP.STD ---
[facility] - General General Date of Admission: 01/21/24 Date of Service: 01/21/24 Chief Complaint: Fall with Right Hip Fracture. HPI Narrative BERNY INFANTE, is a 83 M with a past medical history of essential hypertension, hyperlipidemia, paroxysmal atrial fibrillation; on apixaban, history of chronic systolic CHF; on spironolactone and prn Lasix for edema, history of LBBB, history of SSS; s/p PPM, history of Nonischemic cardiomyopathy, LVH, MIKY, history of Prostate cancer, CKD; stage III, GERD, Depression, history of T-12 compression fracture in November 2023 and OA; s/p bilateral TKR's who presents to [facility] ER complaining of falling with subsequent Right leg pain and inability to ambulate. Mr. Infante reports his symptoms began approximately one hour prior to arrival when he was standing up from his dining room chair and then he suddenly lost his balance culminating in him landing on his Right hip. He was unable to get up so EMS was activated. He denies LOC or significant head trauma with his fall. He also denies related fever, chills, nausea, vomiting, diarrhea, constipation, back pain, paresthesias or other recent illness. In the ER he was noted to have a Right Femoral Neck Fracture and he was then admitted to the PCU for ongoing care for a stay that is expected to be greater than 48 hours. [facility] Medical History (Updated 01/21/24 @ 20:[address] Heber Young, ) Atrial flutter CKD (chronic kidney disease), stage III Depression Dyspnea Fall Fatigue HFrEF (heart failure with reduced ejection fraction) History of hay fever HTN (hypertension) Hyperkalemia, diminished renal excretion Hyperlipidemia Left bundle branch block (LBBB) Left ventricular diastolic dysfunction LVH (left ventricular hypertrophy) Non-ischemic cardiomyopathy Obstructive sleep apnea Prostate cancer Sick sinus syndrome Home Medications folic acid 1 mg tablet 1 mg PO BID supplement 10/11/21 [History Last Taken 12/15/21] vitamin B complex 1 cap PO BID vitamin 10/11/21 [History Last Taken 12/15/21] rosuvastatin 20 mg tablet 20 mg PO DAILY cholesterol 12/16/21 [History Last Taken 12/15/21] apixaban 2.5 mg tablet (Eliquis) 2.5 mg PO BID blood thinner 03/23/23 [History Last Taken Unknown] duloxetine 30 mg capsule,delayed release 30 mg PO BID DEPRESSION 12/15/23 [History Last Taken Unknown] metoprolol succinate 25 mg tablet,extended release 24 hr 25 mg PO DAILY 30 days #30 tabs 12/25/23 [Rx Last Taken Unknown] spironolactone 25 mg tablet 25 mg PO DAILY 30 days #30 tabs 12/25/23 [Rx Last Taken Unknown] fluticasone propionate 50 mcg/actuation nasal spray,suspension 1 spray NASAL BID 30 days #16 grams 12/27/23 [Rx Last Taken Unknown] pantoprazole 40 mg tablet,delayed release (Protonix) 40 mg PO BID 30 days #60 tabs 12/27/23 [Rx Last Taken Unknown] sucralfate 1 gram tablet (Carafate) 1 g PO BID 30 days #60 tabs 12/27/23 [Rx Last Taken Unknown] losartan 25 mg tablet 25 mg PO DAILY #30 tabs 01/17/24 [Rx Last Taken Unknown] furosemide 40 mg tablet (Lasix) 40 mg PO DAILY 01/21/24 [History Last Taken Unknown] Allergy/AdvReac Type Severity Reaction Status Date / Time Iodinated Contrast Media Allergy Severe Shortness Verified 01/21/24 18:13 of breath iodine Allergy Shortness Verified 01/21/24 18:13 of breath Surgical History History of left heart catheterization (12/17/21) History of prostate surgery History of total bilateral knee replacement Hx of appendectomy Social History household members: spouse Smoking Status: Never smoker alcohol intake: current alcohol intake frequency: 0-2 drinks per day Alcohol type: beer, wine and hard liquor details: 1 drink per night substance use type: does not use caffeine: Yes Type: coffee Number of servings: 2 what type of physical activity do you participate in: walking frequency: daily seatbelt use: always ROS ROS Narrative Review of systems: General: Patient denies fever or chills HENT: Denies headache, denies stuffy nose, denies sore throat EYES: Denies changes in vision or discharge from eyes. Resp: Denies cough, denies shortness of breath Cardiac: Denies chest pain or palpitations. GI: Denies abdominal pain, denies changes in bowel, denies nausea or vomiting : Denies changes in urination Extremity: Patient admits to pain in his right hip after fall with inability to ambulate Musculoskeletal: Feels somewhat generally weak and unwell Neuro: Denies any headache, numbness/tingling or focal neurologic weakness Heme: Denies any bleeding or bruising Skin: Denies rashes Psychiatric: No complaints voiced related to uncontrolled depression or anxiety Endocrine: No polyuria, polydipsia or polyphagia. The rest of the 14 point ROS was negative except for positives in HPI. Vital Signs Vital Signs Vital Signs: 01/21/24 18:14 Temperature 96.8 F L Temperature Source Temporal Pulse Rate 62 Respiratory Rate 18 Blood Pressure 106/68 Blood Pressure Mean 80 Pulse Ox 93 Oxygen Delivery Method Room Air Weight Weight: 184 lb 11.958 oz Body Mass Index (BMI) 25.7 Physical Exam Const alert, oriented x3, no apparent distress, average body habitus and healthy appearing General Appearance: cooperative HEENT normocephalic, head/scalp atraumatic, hearing grossly normal bilaterally and moist oral mucous membranes Eyes PERRL and EOMs intact bilaterally Neck no lymphadenopathy and supple Resp normal respiratory effort, no retractions, no use of accessory muscles and clear to auscultation bilaterally Cardio regular rate and regular rhythm GI normal to inspection, nondistended, normoactive bowel sounds, soft to palpation, non-tender and non-distended Extremity Extremity Narrative: Patient's right lower extremity has positive logroll test but negative shortening or external rotation. No signs of vascular compromise with good pulses and capillary refill. Skin Skin Narrative: Patient has no evidence of rash at this time. Neuro oriented x3, CN's II-XII intact bilaterally and no focal motor deficits Sensorium / Orientation: awake, alert, oriented to person, oriented to place and oriented to time Speech: speech normal Motor Exam: strength 5/5 throughout Psych affect normal Results Medical Records Data Attestation: I reviewed the patient's medical records Lab / Micro Data Attestation: I reviewed the patient's lab results. 01/22/24 04:30 01/21/24 19:50 Imaging Radiology Impression Hip/Pelvis X-Ray 01/21/24 19:15 IMPRESSION: 1. There is a lucent area along the right femoral neck concerning for a left femoral neck fracture. 2. Mild degenerative findings in both hips. Electronically Signed: Vidal Casiano MD at 19:40 EST Reading Location ID and State: [facility] / [place] , Service support , Assessment & Plan Assessment/Plan (1) Closed fracture of right hip: QUALIFIERS: Encounter type: initial encounter Qualified Code(s): S72.001A - Fracture of unspecified part of neck of right femur, initial encounter for closed fracture (2) Fall: QUALIFIERS: Encounter type: initial encounter Qualified Code(s): W19.XXXA - Unspecified fall, initial encounter (3) History of atrial fibrillation: (4) History of cardiac pacemaker: PLAN: Plan 1. Right Femoral Neck Fracture after Mechanical Fall - Admit to PCU. Continue supportive care and place RLE in 5# Lopez's traction plus place Devlin catheter. Give Tylenol prn [id number] (level 1-5/10) pain or fever. Give Morphine IV prn for severe pain. Finally, we will consult the orthopedic surgeon on-call to see this patient on-rounds in the AM for further recommendations with help appreciated in advance. 2. Recent history of T-12 compression fracture in November 2023 complicating #1 - Noted. We will watch carefully for any complaints of LE numbness or tingling. 3. Paroxysmal atrial fibrillation; on apixaban - Hold NOAC in light of impending ORIF in AM. 3. Essential hypertension - Resume Metoprolol as previous. 4. Hyperlipidemia - Continue statin. 5. History of chronic systolic CHF; on spironolactone and prn Lasix for edema - Continue home medications as previous. 6. History of LBBB - Noted. 7. History of SSS; s/p PPM - Stable. 8. History of Nonischemic cardiomyopathy - Noted. 9. LVH - Noted. 10. MIKY - Stable. 11. History of Prostate cancer - Noted. 12. CKD; stage III - Stable. 13. GERD - Continue PPI. 14. Depression - Resume home regimen as previous. 15. OA; s/p bilateral TKR's - Noted. 16. DVT prophylaxis - We will avoid preoperative blood thinners in cases of traumatic fracture due to increased risk of potential bleeding complications. Orthopedic surgeon to determine postoperative DVT prophylaxis regimen. Total time: Approximately 55 minutes. Charges/Coding Visit Charges Inpatient E&M: 81465 Init Hosp L2
[2024-01-21 20:12] VITALS: BP 93/66; PULSE 68; RESP 13; TEMP 36.6; O2SAT 93
[2024-01-21 20:17] LABS: Absolute Lymphocyte Count 1.37 X10^3/uL (0.83-4.51); Absolute Neutrophil Count 4.1 X10^3/uL (2.0-7.7); Basophil# 0.04 X10^3/uL; Basophil% 0.7 % (0-1); Eosinophil# 0.12 X10^3/uL; Hematocrit 43.7 % (40-54); Hemoglobin 14.2 g/dL (13.0-16.5); Lymphocyte # 1.37 X10^3/ul (0.83-4.51); Lymphocyte % 22.3 % (19-41); Mean Corp Hgb Conc 32.5 g/dL (32-36); Mean Corpuscular Hgb 30.7 pg (27.0-32.0); Mean Corpuscular Volume 94.4 fL (80-94); Mean Platelet Vol. 11.8 fl (6.2-12.0); Monocyte% 8.2 % (0-10); NRBC Flagged by Analyzer 0 % (0-5); Neutrophil # 4.08 X10^3/uL (2.7-7.7); Neutrophil % 66.5 % (47-70); Platelet Count 198 K/mm3 (150-450); RBC Distribution Width CV 15.9 % (11.6-14.6); Red Blood Count 4.63 M/mm3 (4.6-6.2); White Blood Count 6.1 K/mm3 (4.4-11.0)
--- NOTE | 2024-01-21 20:19 | ED.RN ---
Pt resting at 86% on RA. Pt denies needed O2 at home, placed on 2L NC. Dr. Ortiz notified.
--- NOTE | 2024-01-21 20:25 | RAD_ITS ---
STUDY: XR Chest 1 View 01/21/2024 8:24 PM REASON FOR EXAM: Male, 83 years old. pre-op hip fracture COMPARISON: 2..24 TECHNIQUE: XR Chest 1 View FINDINGS: Bilateral pleural effusions. There is a left sided pacemaker batterypack. There is no pneumothorax. Enlarged heart size. Normal mediastinum. Normal sourav. Prominent appearing increased interstitial lung markings. Normal visualized pulmonary arteries. There is atherosclerotic calcification of the aortic arch with tortuosity. There are diffuse degenerative changes of the visualized thoracic spine. There is degenerative osteoarthritis of the bilateral shoulders. There are no acute findings of the upper abdomen. RAD/Chest 1 View (Portable) IMPRESSION: Pulmonary findings appear improved. Electronically Signed: Vidal Casiano MD at 20:57 EST ,
[2024-01-21 20:38] LABS: Anion Gap 3 (5-15); BUN 45 mg/dL (7-18); BUN/Creat Ratio 25.6 RATIO (10-20); Calcium,Total 8.8 mg/dL (8.5-10.1); Chloride 113 mmol/L (98-107); Creatinine, Serum 1.76 mg/dL (0.70-1.30); EST Glomerular Filtration Rate 39 mL/min (>60); Est Glom Filt Rate - Afr Amer 48 mL/min (>60); Estimated Creatinine Clearance 33.87 ml/min; Glucose 132 mg/dL (74-106); Potassium 4.8 mmol/L (3.5-5.1); Sodium Level 139 mmol/L (136-145)
[2024-01-21 21:45] VITALS: BP 105/78; PULSE 63; RESP 18; TEMP 36.4; O2SAT 95
[2024-01-21 21:55] VITALS: BMI 24.1
[2024-01-21] MEDS: 0.9% Normal Saline (1000mL) 1,000 ML 70 ML IV (22:09)
[2024-01-21] MEDS: Atorvastatin Calcium 40 MG Tablet PO (22:10)
[2024-01-21] MEDS: DULoxetine Hcl 30 MG Capsule PO (22:11)
[2024-01-21] MEDS: Vitamin B Comp W-C Capsule 1 CAP PO (22:11)
[2024-01-21] MEDS: Pantoprazole Sodium 40 MG Tablet PO (22:11)
[2024-01-21] MEDS: MELATONIN 3 MG TABLET PO (22:25)
[2024-01-21] MEDS: Morphine 2 MG/ML Syringe IV (22:25)
[2024-01-22] VITALS (14 sets, daily range): BP systolic 87–106; BP diastolic 50–75; PULSE 51–75; RESP 14–17; TEMP 36.4–37; O2SAT 82–97; BMI 24.1
[2024-01-22] MEDS: Morphine 2 MG/ML Syringe IV ×2 (03:52→14:51)
[2024-01-22 05:03] LABS: Absolute Lymphocyte Count 1.22 X10^3/uL (0.83-4.51); Absolute Neutrophil Count 6.4 X10^3/uL (2.0-7.7); Basophil# 0.03 X10^3/uL; Basophil% 0.4 % (0-1); Eosinophil# 0.11 X10^3/uL; Eosinophils% 1.3 % (0-5); Hematocrit 42.7 % (40-54); Lymphocyte # 1.22 X10^3/ul (0.83-4.51); Lymphocyte % 14.4 % (19-41); Mean Corp Hgb Conc 32.8 g/dL (32-36); Mean Corpuscular Hgb 31.1 pg (27.0-32.0); Mean Corpuscular Volume 94.9 fL (80-94); Mean Platelet Vol. 11.3 fl (6.2-12.0); Monocyte# 0.68 X10^3/uL; NRBC Flagged by Analyzer 0 % (0-5); Neutrophil % 75.7 % (47-70); Platelet Count 160 K/mm3 (150-450); RBC Distribution Width CV 15.7 % (11.6-14.6); RBC Distribution Width SD 54.6 fl (35.1-43.9); White Blood Count 8.5 K/mm3 (4.4-11.0)
[2024-01-22 05:12] LABS: International Normalized Ratio 1.3; Prothrombin Time (Protime)PT. 16.3 SECONDS (11.7-14.9)
[2024-01-22 05:31] LABS: ALB/GLOB Ratio 0.8 RATIO (0.9-2.4); AST(SGOT) 30 U/L (15-37); Alanine Aminotransfer ALT/SGPT 35 U/L (16-61); Alkaline Phosphatase 137 U/L (45-117); Anion Gap 5 (5-15); BUN 44 mg/dL (7-18); BUN/Creat Ratio 24.9 RATIO (10-20); Calcium,Total 8.2 mg/dL (8.5-10.1); Chloride 114 mmol/L (98-107); Creatinine, Serum 1.77 mg/dL (0.70-1.30); EST Glomerular Filtration Rate 39 mL/min (>60); Est Glom Filt Rate - Afr Amer 47 mL/min (>60); Estimated Creatinine Clearance 33.68 ml/min; Globulin 3.6 g/dL (2.2-4.2); Glucose 108 mg/dL (74-106); Magnesium 1.9 mg/dL (1.6-2.6); Phosphorus 4.1 mg/dL (2.5-4.9); Potassium 4.1 mmol/L (3.5-5.1); Protein, Total 6.6 g/dL (6.4-8.2); Sodium Level 142 mmol/L (136-145); Thyroid Stim Hormone (TSH) 2.94 uIU/mL (0.358-3.74)
--- NOTE | 2024-01-22 05:55 | EKG12_ITS ---
Test Reason : AM EKG Blood Pressure : / mmHG Vent. Rate : 064 BPM Atrial Rate : 064 BPM P-R Int : 304 ms QRS Dur : 162 ms QT Int : 526 ms P-R-T Axes : 070 -37 157 degrees QTc Int : 542 ms Sinus rhythm with sinus arrhythmia with 1st degree A-V block with Fusion complexes Left axis deviation Left bundle branch block Abnormal ECG When compared with ECG of 21-JAN-2024 19:29, MANUAL COMPARISON REQUIRED, DATA IS UNCONFIRMED Confirmed by Hitesh Esqueda ([id number]), newspaper or periodical editor HINA RAYMUNDO ([id number]) on 01/23/2024 7:48:15 AM Referred By: Confirmed By:Hitesh Esqueda
--- NOTE | 2024-01-22 07:36 | CON.PCM.OR_ITS ---
HPI Consult Data Date of Consult: 01/22/24 HPI Narrative Reason for Consultation: Right femoral neck fracture HPI Narrative: BERNY INFANTE, is a 83 M who presents to [facility] after a mechanical fall on his right hip yesterday 01/21/2020 4 in the evening. Patient states he was sitting down for dinner turned to grab something and lost his balance falling onto his right side. He was brought to the [facility] emergency department where x-rays revealed a minimally displaced right femoral neck fracture. Patient was recently admitted for toxic encephalopathy, GI bleed. Patient has been continued on his Eliquis for atrial fibrillation. Patient also had exacerbation of CHF with pleural effusions. He also sustained a T12 compression fracture in November 2023. He is awaiting approval for a kyphoplasty with Dr. Tran. He denies any numbness or tingling in his lower extremities. His chief complaint with his lumbar injury which was sustained after a slip on ice is low back pain with ambulation. He denies any antecedent right hip or groin pain. Patient is mobilizing with a walker at this time. [facility] Medical History (Updated 01/21/24 @ 20:[address] Heber Young, ) Atrial flutter CKD (chronic kidney disease), stage III Depression Dyspnea Fall Fatigue HFrEF (heart failure with reduced ejection fraction) History of hay fever HTN (hypertension) Hyperkalemia, diminished renal excretion Hyperlipidemia Left bundle branch block (LBBB) Left ventricular diastolic dysfunction LVH (left ventricular hypertrophy) Non-ischemic cardiomyopathy Obstructive sleep apnea Prostate cancer Sick sinus syndrome Home Medications folic acid 1 mg tablet 1 mg PO BID supplement 10/11/21 [History Last Taken 12/15/21] vitamin B complex 1 cap PO BID vitamin 10/11/21 [History Last Taken 12/15/21] rosuvastatin 20 mg tablet 20 mg PO DAILY cholesterol 12/16/21 [History Last Taken 12/15/21] apixaban 2.5 mg tablet (Eliquis) 2.5 mg PO BID blood thinner 03/23/23 [History Last Taken Unknown] duloxetine 30 mg capsule,delayed release 30 mg PO BID DEPRESSION 12/15/23 [History Last Taken Unknown] metoprolol succinate 25 mg tablet,extended release 24 hr 25 mg PO DAILY 30 days #30 tabs 12/25/23 [Rx Last Taken Unknown] spironolactone 25 mg tablet 25 mg PO DAILY 30 days #30 tabs 12/25/23 [Rx Last Taken Unknown] fluticasone propionate 50 mcg/actuation nasal spray,suspension 1 spray NASAL BID 30 days #16 grams 12/27/23 [Rx Last Taken Unknown] pantoprazole 40 mg tablet,delayed release (Protonix) 40 mg PO BID 30 days #60 tabs 12/27/23 [Rx Last Taken Unknown] sucralfate 1 gram tablet (Carafate) 1 g PO BID 30 days #60 tabs 12/27/23 [Rx Last Taken Unknown] losartan 25 mg tablet 25 mg PO DAILY #30 tabs 01/17/24 [Rx Last Taken Unknown] furosemide 40 mg tablet (Lasix) 40 mg PO DAILY 01/21/24 [History Last Taken Unknown] Allergy/AdvReac Type Severity Reaction Status Date / Time Iodinated Contrast Media Allergy Severe Shortness Verified 01/21/24 18:13 of breath iodine Allergy Shortness Verified 01/21/24 18:13 of breath Surgical History History of left heart catheterization (12/17/21) History of prostate surgery History of total bilateral knee replacement Hx of appendectomy Social History household members: spouse Smoking Status: Never smoker alcohol intake: current alcohol intake frequency: 0-2 drinks per day Alcohol type: beer, wine and hard liquor details: 1 drink per night substance use type: does not use caffeine: Yes Type: coffee Number of servings: 2 what type of physical activity do you participate in: walking frequency: daily seatbelt use: always ROS ROS Narrative 12 pt ROS obtained, negative unless noted in HPI. Vital Signs Vital Signs Vital Signs: 01/21/24 18:14 01/21/24 20:12 01/21/24 21:45 Temperature 96.8 F L 98 F 97.6 F L Temperature Source Temporal Temporal Pulse Rate 62 68 63 Respiratory Rate 18 13 18 Respiratory Effort Respiratory Depth Respiratory Pattern Blood Pressure 106/68 93/66 105/78 Blood Pressure Mean 80 75 87 Blood Pressure Source Monitor Pulse Ox 93 93 95 Oxygen Delivery Method Room Air Nasal Cannula Oxygen Flow Rate (L/min) 2 01/21/24 22:00 01/22/24 03:45 01/22/24 06:00 Temperature 97.7 F L Temperature Source Temporal Pulse Rate 67 Respiratory Rate 16 Respiratory Effort Normal Non-Labored Respiratory Depth Respiratory Pattern Blood Pressure 87/66 L Blood Pressure Mean 73 Blood Pressure Source Monitor Pulse Ox 95 96 Oxygen Delivery Method Nasal Cannula Nasal Cannula Oxygen Flow Rate (L/min) 4 4 01/22/24 06:00 01/22/24 06:00 Temperature 97.7 F L Temperature Source Temporal Pulse Rate 67 Respiratory Rate 14 16 Respiratory Effort Normal Non-Labored Respiratory Depth Normal Respiratory Pattern Normal Blood Pressure 92/59 L Blood Pressure Mean 70 Blood Pressure Source Monitor Pulse Ox 96 95 Oxygen Delivery Method Nasal Cannula Nasal Cannula Oxygen Flow Rate (L/min) 4 3 Weight Weight: 173 lb 1.006 oz Body Mass Index (BMI) 24.1 Physical Exam Narrative General -A&Ox3, NAD, appears stated age. Vital signs stable, afebrile. Respiratory -normal work of breathing, no intercostal retractions. CV -pulses regular, brisk capillary refill ?4 limbs. Abdomen-soft, nontender, nondistended. No guarding, rigidity, rebound tenderness. Musculoskeletal/neurologic -full range of motion nontender throughout bilateral upper extremities, left lower extremity with full sensation and strength in all dermatomes and myotomes. No midline cervical tenderness. Rightlower extremity- no obvious deformity. Patient in Lopez's traction. Pain with logroll of the left lower extremity. Nontender throughout the right knee femoral shaft, tibial shaft and right foot/ankle. Brisk capillary refill. Sensation intact light touch L3-S1 dermatomes. DF, PF, EHL intact. DP, PT 2+. Pelvis is stable, nontender. Skin is intact without lacerations, abrasions. No ecchymosis noted. Lab / Micro Data 01/22/24 04:30 01/22/24 04:30 Labs: Laboratory Results - last 24 hr 01/21/24 19:50: WBC 6.1, RBC 4.63, Hgb 14.2, Hct 43.7, MCV 94.4 H, MCH 30.7, MCHC 32.5, RDW Std Deviation 54.0 H, RDW Coeff of Laney 15.9 H, Plt Count 198, MPV 11.8, Immature Gran % (Auto) 0.300, Neut % (Auto) 66.5, Lymph % (Auto) 22.3, [place] % (Auto) 8.2, Eos % (Auto) 2.0, Baso % (Auto) 0.7, Absolute Neuts (auto) 4. 1, Absolute Lymphs (auto) 1.37, Nucleated RBC % 0, PT Cancelled, INR Cancelled, Sodium 139, Potassium 4.8, Chloride 113 H, Carbon Dioxide 23.0, Anion Gap 3 L, BUN 45 H, Creatinine 1.76 H, Estim Creat Clear Calc 33.87, Est GFR (MDRD) Af Amer 48 L, Est GFR (MDRD) Non-Af 39 L, BUN/Creatinine Ratio 25.6 H, Glucose 132 H, Calcium 8.8, Blood Type Cancelled, Antibody Screen Cancelled 01/22/24 04:30: WBC 8.5, RBC 4.50 L, Hgb 14.0, Hct 42.7, MCV 94.9 H, MCH 31.1, MCHC 32.8, RDW Std Deviation 54.6 H, RDW Coeff of Laney 15.7 H, Plt Count 160, MPV 11.3, Immature Gran % (Auto) 0.200, Neut % (Auto) 75.7 H, Lymph % (Auto) 14.4 L, [place] % (Auto) 8.0, Eos % (Auto) 1.3, Baso % (Auto) 0.4, Absolute Neuts (auto) 6.4, Absolute Lymphs (auto) 1.22, Nucleated RBC % 0, PT 16.3 H, INR 1.3, Sodium 142, Potassium 4.1, Chloride 114 H, Carbon Dioxide 23.0, Anion Gap 5, BUN 44 H, Creatinine 1.77 H, Estim Creat Clear Calc 33.68, Est GFR (MDRD) Af Amer 47 L, Est GFR (MDRD) Non-Af 39 L, BUN/Creatinine Ratio 24.9 H, Glucose 108 H, Calcium 8.2 L, Phosphorus 4.1, Magnesium 1.9, Total Bilirubin 1.00, AST 30, ALT 35, Alkaline Phosphatase 137 H, Total Protein 6.6, Albumin 3.0 L, Globulin 3.6, Albumin/Globulin Ratio 0.8 L, TSH 2.94, Blood Type A POSITIVE, Antibody Screen NEGATIVE Imaging Radiology Impression Hip/Pelvis X-Ray 01/21/24 19:15 IMPRESSION: 1. There is a lucent area along the right femoral neck concerning for a left femoral neck fracture. 2. Mild degenerative findings in both hips. Electronically Signed: Vidal Casiano MD at 19:40 EST , ADDENDUM: 01/21/242017 IMPRESSION: 1. There is a lucent area along the right femoral neck concerning for a RIGHT femoral neck fracture. 2. Mild degenerative findings in both hips. Electronically Signed: Vidal Casiano MD at 20:11 EST , ADDENDUM: 01/21/242018 IMPRESSION: 1. There is a lucent area along the right femoral neck concerning for a left femoral neck fracture. 2. Mild degenerative findings in both hips. Electronically Signed: Vidal Casiano MD at 19:40 EST , ADDENDUM: 01/21/242019 IMPRESSION: 1. There is a lucent area along the right femoral neck concerning for a RIGHT femoral neck fracture. 2. Mild degenerative findings in both hips. Electronically Signed: Vidal Casiano MD at 20:11 EST , ADDENDUM: 01/21/242022 IMPRESSION: 1. There is a lucent area along the right femoral neck concerning for a RIGHT femoral neck fracture. 2. Mild degenerative findings in both hips. Electronically Signed: Vidal Casiano MD at 20:11 EST , Chest X-Ray 01/21/24 20:25 IMPRESSION: Pulmonary findings appear improved. Electronically Signed: Vidal Casiano MD at 20:57 EST Reading Location ID and State: [address] [place] [address] , Service support , Assessment & Plan Assessment/Plan (1) Closed fracture of right hip: QUALIFIERS: Encounter type: initial encounter Qualified Code(s): S72.001A - Fracture of unspecified part of neck of right femur, initial encounter for closed fracture PLAN: Patient sustained a minimally displaced right subcapital femoral neck fracture. There does appear to be significant displacement anteriorly on the lateral projection. I expressed my concern with the patient regarding screw fixation and the risk of nonunion and need for additional surgery. I explained the most predictable surgery would be a right hip hemiarthroplasty. -I discussed the procedure-its risks, benefits and alternative. Risks include but are not limited to bleeding, infection, loss of life or limb, risk of anesthesia, persistent pain or disability, need for additional surgery, leg length discrepancy, instability, failure of orthopedic hardware, neurovascular injury, DVT or PE. Patient expressed understanding these risks and wished proceed with surgery. -With patient's advanced cardiac history, I I discussed the case with the hospitalist. We agreed for cardiac evaluation prior to surgery for perioperative recommendations. I also recommended we await surgery until tomorrow due to Eliquis dose last evening and increased risk of bleeding. - NPO tomorrow, CLD until 2 hrs prior to surgery. -Type and screen -2 g Ancef on-call to the OR -Bedrest, heel protectors -Plan to proceed with surgery tomorrow when OR becomes available Thank you for this consultation.
[2024-01-22] MEDS: 0.9% Saline Lock 10 ML Syringe IV ×2 (08:22→14:52)
--- NOTE | 2024-01-22 08:24 | CON.PCM.CA_ITS ---
Assessment & Plan Assessment/Plan (1) HFrEF (heart failure with reduced ejection fraction): PLAN: The patient was recently diagnosed with a following his ejection fraction from 55 to 25%. He was subsequently aggressively titrated on guideline directed medical therapy receiving beta-pilar, ARB, spironolactone, and recently had Lasix added after chest x-ray showed pleural effusions and some pulmonary congestion. The patient has improved his chest x-ray has improved and he has dropped 10 pounds in the last 3 days. From a cardiovascular standpoint the patient appears to be stable. (2) Pacemaker: PLAN: The patient has a dual-chamber pacemaker is to be evaluated by the pacer service today. This should also be rechecked after any Bovie is utilized during the surgical intervention. (3) CKD (chronic kidney disease), stage III: QUALIFIERS: Chronic kidney disease stage 3 subtype: stage 3b (GFR 30-44) Qualified Code(s): N18.32 - Chronic kidney disease, stage 3b PLAN: The patient is stage IIIb chronic renal insufficiency his creatinine has been stable at 1.77 with diuresis. (4) History of atrial fibrillation: PLAN: The patient has a history of persistent atrial fibrillation he is on Eliquis which has been held for his surgical intervention on his hip. His Kendy jessica should be reinstituted when cleared by the surgical team. (5) Closed fracture of right hip: QUALIFIERS: Encounter type: initial encounter Qualified Code(s): S72.001A - Fracture of unspecified part of neck of right femur, initial encounter for closed fracture PLAN: The patient had a mechanical fall. He fractured his right hip. This was not preceded by any type of syncope or near syncope he reports that he was feeling very well he just mechanically slipped off the chair and fell to the floor. From a cardiovascular standpoint the patient to be able to proceed with surgical intervention. We do need to monitor his volume status very closely and he has a tenuous volume overload situation. I have asked that his fluids be held and he be maintained on his Lasix 40 mg daily as well as his spironolactone and his other medical therapy. Ideally his blood pressure should be in the 90-100 systolic range and 55-60 at the lowest on the diastolic. PLAN: Plan The patient can be cleared to proceed with surgical intervention on his fractured right hip. I did go over the risk and benefits from a cardiovascular standpoint with the patient and he voiced understanding. We really do not have an alternative given the fact that if we do not fix his hip he will not be able to walk on it. I do feel that he is a safe as he will be provided we maintain his volume status. Please call me if further assistance is needed or questions arise. I will follow-up with him postoperatively. HPI Consult Data Date of Consult: 01/22/24 HPI Narrative Reason for Consultation: Preop clearance HPI Narrative: BERNY INFANTE, is a 83 M who presents well-known to our service. Patient carries a history of persistent atrial fibrillation and sick sinus syndrome. He has a pacemaker in place. The patient is admitted after a mechanical fall resulting in a right hip fracture. He has recently used slipped on ice and fractured his T12 spine which had to be delayed and surgical intervention. The patient was recently in the office and found to have decompensated and his heart failure status his chest x- ray showed right greater than left pleural effusions and some evidence of pulmonary congestion. He was treated with increasing his Lasix dose to 40 mg daily and he has diuresed 10 pounds over the last 3 days. The patient is breathing much better and reports that he is feeling back to baseline. The patient was hospitalized within the past month. At that time his ejection fraction was noted to drop from 55 to 25%. He has a previous history of nonischemic dilated cardiomyopathy that responded well to medical therapy. His guideline directed medical therapy was reinstituted over the last 2 weeks and he has diuresed 10 pounds over the last 3 days. He is due to have his echocardiogram repeated in the next 6 to 12 weeks. The pacer check is pending. The patient denies any anginal type symptoms denies any PND orthopnea he does have some scant right greater than left pedal edema. He is in traction on his right lower extremity. [facility] Medical History (Updated 01/21/24 @ 20:[address] Heber Young DO) Atrial flutter CKD (chronic kidney disease), stage III Depression Dyspnea Fall Fatigue HFrEF (heart failure with reduced ejection fraction) History of hay fever HTN (hypertension) Hyperkalemia, diminished renal excretion Hyperlipidemia Left bundle branch block (LBBB) Left ventricular diastolic dysfunction LVH (left ventricular hypertrophy) Non-ischemic cardiomyopathy Obstructive sleep apnea Prostate cancer Sick sinus syndrome Home Medications folic acid 1 mg tablet 1 mg PO BID supplement 10/11/21 [History Last Taken 12/15/21] vitamin B complex 1 cap PO BID vitamin 10/11/21 [History Last Taken 12/15/21] rosuvastatin 20 mg tablet 20 mg PO DAILY cholesterol 12/16/21 [History Last Taken 12/15/21] apixaban 2.5 mg tablet (Eliquis) 2.5 mg PO BID blood thinner 03/23/23 [History Last Taken Unknown] duloxetine 30 mg capsule,delayed release 30 mg PO BID DEPRESSION 12/15/23 [History Last Taken Unknown] metoprolol succinate 25 mg tablet,extended release 24 hr 25 mg PO DAILY 30 days #30 tabs 12/25/23 [Rx Last Taken Unknown] spironolactone 25 mg tablet 25 mg PO DAILY 30 days #30 tabs 12/25/23 [Rx Last Taken Unknown] fluticasone propionate 50 mcg/actuation nasal spray,suspension 1 spray NASAL BID 30 days #16 grams 12/27/23 [Rx Last Taken Unknown] pantoprazole 40 mg tablet,delayed release (Protonix) 40 mg PO BID 30 days #60 tabs 12/27/23 [Rx Last Taken Unknown] sucralfate 1 gram tablet (Carafate) 1 g PO BID 30 days #60 tabs 12/27/23 [Rx La st Taken Unknown] losartan 25 mg tablet 25 mg PO DAILY #30 tabs 01/17/24 [Rx Last Taken Unknown] furosemide 40 mg tablet (Lasix) 40 mg PO DAILY 01/21/24 [History Last Taken Unknown] Allergy/AdvReac Type Severity Reaction Status Date / Time Iodinated Contrast Media Allergy Severe Shortness Verified 01/21/24 18:13 of breath iodine Allergy Shortness Verified 01/21/24 18:13 of breath Surgical History History of left heart catheterization (12/17/21) History of prostate surgery History of total bilateral knee replacement Hx of appendectomy Social History household members: spouse Smoking Status: Never smoker alcohol intake: current alcohol intake frequency: 0-2 drinks per day Alcohol type: beer, wine and hard liquor details: 1 drink per night substance use type: does not use caffeine: Yes Type: coffee Number of servings: 2 what type of physical activity do you participate in: walking frequency: daily seatbelt use: always ROS Constitutional Constitutional: Reports systems reviewed and no addt'l complaints, except as documented Eyes Eyes: Reports systems reviewed and no addt'l complaints, except as documented ENT HEENT: Reports systems reviewed and no addt'l complaints, except as documented Cardiovascular Cardiovascular: Reports as per HPI Respiratory/Chest Respiratory/Chest: Reports as per HPI Gastrointestinal Gastrointestinal: Reports systems reviewed and no addt'l complaints, except as documented Genitourinary Genitourinary: Reports systems reviewed and no addt'l complaints, except as documented Musculoskeletal Musculoskeletal: Reports as per HPI Integumentary Integumentary: Reports systems reviewed and no addt'l complaints, except as documented Neurologic Neurologic: Reports systems reviewed and no addt'l complaints, except as documented Psychiatric Psychiatric: Reports systems reviewed and no addt'l complaints, except as documented Endocrine Endocrinology: Reports systems reviewed and no addt'l complaints, except as documented Hematologic/Lymphatic Hematologic/Lymphatic: Reports systems reviewed and no addt'l complaints, except as documented Allergic/Immunologic Allergic/Immunologic: Reports systems reviewed and no addt'l complaints, except as documented Physical Exam Const alert and oriented x3 HEENT normocephalic Eyes EOMs intact bilaterally Neck supple and no carotid bruits Neck Narrative: Noted JVD at the clavicle at 30 degrees. Chest inspection of chest normal Chest: left pectoral incision Resp normal respiratory effort Auscultation: crackles right base and diminished lung sounds right lower Cardio regular rate, regular rhythm, S1 normal heart sound, S2 normal heart sound, no murmurs, no rub and no gallops Jugular Venous Distention: JVD other (At the clavicle at 30 degrees.) Rate: other Other Details: The patient is in a paced rhythm with underlying atrial fibrillation on telemetry. GI soft to palpation Extremity General Extremity: edema right lower extremity mild Skin no rashes or lesions noted Neuro Neuro Narrative: Alert and oriented x 3. Psych thought process normal Risk Stratification Risk Stratification Applicable: No Charges/Coding Visit Charges Inpatient E&M: 61218 Init Hosp L3 Objective Data Vital Signs: Vital Signs Temp Pulse Resp BP Pulse Ox O2 Del Method O2 Flow Rate 97.6 F L 67 16 96/75 94 Nasal Cannula 3 01/22/24 08:13 01/22/24 08:13 01/22/24 08:13 01/22/24 08:13 01/22/24 08:13 01/22/24 08:13 01/22/24 08:13 Oxygen Flow Rate (L/min) 3 Oxygen Delivery Method Nasal Cannula Weight: 173 lb 1.006 oz Body Mass Index (BMI) 24.1 Intake & Output: Intake and Output for Last 24 Hours 01/20/24 01/21/24 01/22/24 23:59 23:59 23:59 Intake Total 715.17 / 715.17 Output Total 500 / 500 350 / 350 Balance -500 / -500 365.17 / 365.17 Lab / Micro Data Attestation: I reviewed the patient's lab results. 01/22/24 04:30 01/22/24 04:30 Labs: Laboratory Results - last 24 hr 01/21/24 19:50: WBC 6.1, RBC 4.63, Hgb 14.2, Hct 43.7, MCV 94.4 H, MCH 30.7, MCHC 32.5, RDW Std Deviation 54.0 H, RDW Coeff of Laney 15.9 H, Plt Count 198, MPV 11.8, Immature Gran % (Auto) 0.300, Neut % (Auto) 66.5, Lymph % (Auto) 22.3, [place] % (Auto) 8.2, Eos % (Auto) 2.0, Baso % (Auto) 0.7, Absolute Neuts (auto) 4.1, Absolute Lymphs (auto) 1.37, Nucleated RBC % 0, PT Cancelled, INR Cancelled, Sodium 139, Potassium 4.8, Chloride 113 H, Carbon Dioxide 23.0, Anion Gap 3 L, BUN 45 H, Creatinine 1.76 H, Estim Creat Clear Calc 33.87, Est GFR (MDRD) Af Amer 48 L, Est GFR (MDRD) Non-Af 39 L, BUN/Creatinine Ratio 25.6 H, Glucose 132 H, Calcium 8.8, Blood Type Cancelled, Antibody Screen Cancelled 01/22/24 04:30: WBC 8.5, RBC 4.50 L, Hgb 14.0, Hct 42.7, MCV 94.9 H, MCH 31.1, MCHC 32.8, RDW Std Deviation 54.6 H, RDW Coeff of Laney 15.7 H, Plt Count 160, MPV 11.3, Immature Gran % (Auto) 0.200, Neut % (Auto) 75.7 H, Lymph % (Auto) 14.4 L, [place] % (Auto) 8.0, Eos % (Auto) 1.3, Baso % (Auto) 0.4, Absolute Neuts (auto) 6.4, Absolute Lymphs (auto) 1.22, Nucleated RBC % 0, PT 16.3 H, INR 1.3, Sodium 142, Potassium 4.1, Chloride 114 H, Carbon Dioxide 23.0, Anion Gap 5, BUN 44 H, Creatinine 1.77 H, Estim Creat Clear Calc 33.68, Est GFR (MDRD) Af Amer 47 L, Est GFR (MDRD) Non-Af 39 L, BUN/Creatinine Ratio 24.9 H, Glucose 108 H, Calcium 8.2 L, Phosphorus 4.1, Magnesium 1.9, Total Bilirubin 1.00, AST 30, ALT 35, Alkaline Phosphatase 137 H, Total Protein 6.6, Albumin 3.0 L, Globulin 3.6, Albumin/Globulin Ratio 0.8 L, TSH 2.94, Blood Type A POSITIVE, Antibody Screen NEGATIVE Rhythm Strip Rhythm Strip: A-fib Rate: 60 Cardiology Labs/Tests 01/21/24 19:50: WBC 6.1, RBC 4.63, Hgb 14.2, Hct 43.7, MCV 94.4 H, MCH 30.7, MCHC 32.5, Plt Count 198, MPV 11.8, Immature Gran % (Auto) 0.300, Neut % (Auto) 66.5, Lymph % (Auto) 22.3, [place] % (Auto) 8.2, Eos % (Auto) 2.0, Baso % (Auto) 0.7, Absolute Neuts (auto) 4.1, Nucleated RBC % 0, PT Cancelled, INR Cancelled, Sodium 139, Potassium 4.8, Chloride 113 H, Carbon Dioxide 23.0, Anion Gap 3 L, BUN 45 H, Creatinine 1.76 H, Est GFR (MDRD) Af Amer 48 L, Est GFR (MDRD) Non-Af 39 L, BUN/Creatinine Ratio 25.6 H, Glucose 132 H, Calcium 8.8 01/22/24 04:30: WBC 8.5, RBC 4.50 L, Hgb 14.0, Hct 42.7, MCV 94.9 H, MCH 31.1, MCHC 32.8, Plt Count 160, MPV 11.3, Immature Gran % (Auto) 0.200, Neut % (Auto) 75.7 H, Lymph % (Auto) 14.4 L, [place] % (Auto) 8.0, Eos % (Auto) 1.3, Baso % (Auto) 0.4, Absolute Neuts (auto) 6.4, Nucleated RBC % 0, PT 16.3 H, INR 1.3, Sodium 142, Potassium 4.1, Chloride 114 H, Carbon Dioxide 23.0, Anion Gap 5, BUN 44 H, Creatinine 1.77 H, Est GFR (MDRD) Af Amer 47 L, Est GFR (MDRD) Non-Af 39 L , BUN/Creatinine Ratio 24.9 H, Glucose 108 H, Calcium 8.2 L, Phosphorus 4.1, Magnesium 1.9, Total Bilirubin 1.00 Rhythm: EKG: ECHO: Stress Test: Cardiac Cath: PCI: CT Surgery: Holter monitor: EPS: PPM: CXR: Chest CT Scan: Radiography Diagnostic Testing: Radiology Impression Hip/Pelvis X-Ray 01/21/24 19:15 IMPRESSION: 1. There is a lucent area along the right femoral neck concerning for a left femoral neck fracture. 2. Mild degenerative findings in both hips. Electronically Signed: Vidal Casiano MD at 19:40 EST , ADDENDUM: 01/21/242017 IMPRESSION: 1. There is a lucent area along the right femoral neck concerning for a RIGHT femoral neck fracture. 2. Mild degenerative findings in both hips. Electronically Signed: Vidal Casiano MD at 20:11 EST , ADDENDUM: 01/21/242018 IMPRESSION: 1. There is a lucent area along the right femoral neck concerning for a left femoral neck fracture. 2. Mild degenerative findings in both hips. Electronically Signed: Vidal Casiano MD at 19:40 EST , ADDENDUM: 01/21/242019 IMPRESSION: 1. There is a lucent area along the right femoral neck concerning for a RIGHT femoral neck fracture. 2. Mild degenerative findings in both hips. Electronically Signed: Vidal Casiano MD at 20:11 EST Reading Location ID and State: [facility] / [place] , Service support , ADDENDUM: 01/21/242022 IMPRESSION: 1. There is a lucent area along the right femoral neck concerning for a RIGHT femoral neck fracture. 2. Mild degenerative findings in both hips. Electronically Signed: Vidal Casiano MD at 20:11 EST , Chest X-Ray 01/21/24 20:25 IMPRESSION: Pulmonary findings appear improved. Electronically Signed: Vidal Casiano MD at 20:57 EST ,
[2024-01-22 08:31] LABS: Vitamin D,25 Hydroxy 33.8 ng/mL
[2024-01-22 09:22] LABS: ALB/GLOB Ratio 0.9 RATIO (0.9-2.4); AST(SGOT) 30 U/L (15-37); Alanine Aminotransfer ALT/SGPT 33 U/L (16-61); Albumin, Serum 3.1 g/dL (3.2-5.0); Alkaline Phosphatase 140 U/L (45-117); Anion Gap 1 (5-15); BUN 42 mg/dL (7-18); BUN/Creat Ratio 23.5 RATIO (10-20); Calcium,Total 8.7 mg/dL (8.5-10.1); Chloride 114 mmol/L (98-107); Creatinine, Serum 1.79 mg/dL (0.70-1.30); EST Glomerular Filtration Rate 39 mL/min (>60); Est Glom Filt Rate - Afr Amer 47 mL/min (>60); Globulin 3.6 g/dL (2.2-4.2); Glucose 99 mg/dL (74-106); Potassium 4.1 mmol/L (3.5-5.1); Protein, Total 6.7 g/dL (6.4-8.2); Sodium Level 141 mmol/L (136-145)
[2024-01-22] MEDS: Folic Acid 1 MG Tablet PO ×2 (11:04→17:20)
[2024-01-22] MEDS: Pantoprazole Sodium 40 MG Tablet PO ×2 (11:04→21:33)
[2024-01-22] MEDS: DULoxetine Hcl 30 MG Capsule PO ×2 (11:04→21:33)
[2024-01-22] MEDS: Vitamin B Comp W-C Capsule 1 CAP PO ×2 (11:04→21:33)
--- NOTE | 2024-01-22 11:55 | CASEMGMT ---
RN CM Face to Face with patient for initial transition planning/care coordination assessment. RN CM introduced self and role at [facility]. Patient lying in bed, alert and oriented. Patient willing to participate in assessment and is able to answer all questions appropriately. Care providers, pharmacy, and demographics verified. PCP: Leena Specialists: Yin, exercise physiologist; Gordy, pulmnologist; Juanpablo, petroleum inspector Preferred Pharmacy: [facility] Insurance: [place] [facility] Prescription Benefit: yes Living Will/HPOA: yes, Abril lucero LNOK: Living Arrangements: Patient lives with in a single story home with 2 steps and railing to enter the home. Patient states he was independent at home. Transportation: self, DME/HHC: Patient has shower chair, raised toilet, grab bars, and walker at home. Patient is active with [facility]HC. No previous SNF. Patient wishes to discharge home, but is willing to go to SNF if needed. Will monitor progress with therapy after surgery. Patient states he has no further needs or concerns at this time. CM to follow for discharge planning needs that may arise. Disposition Plan: TBD, anticipate SNF pending course of treatment and progress with therapy. Tita DOMINGUEZ, RN, CM
--- NOTE | 2024-01-22 13:08 | PCM.PN.HOSP ---
Reason for Visit Reason for Visit: Diagnoses Unspecified systolic (congestive) heart failure (01/21/24) Chronic kidney disease, stage 3b (01/21/24) Fracture of unspecified part of neck of right femur, initial encounter for closed fracture (01/21/24) Unspecified fall, initial encounter (01/21/24) Personal history of other diseases of the circulatory system (01/21/24) Presence of cardiac pacemaker (01/21/24) Subjective Subjective No acute events overnight. Patient seen at bedside this morning. Sitting up comfortably in bed, conversing normally, no acute distress. Patient denies any pain at rest but does have moderate pain with any motion of the leg. States his pain has been well-controlled with pain medications. Denies any other acute concerns this morning. Objective Data Objective Data Vital Signs: Vital Signs Temp Pulse Resp BP Pulse Ox O2 Del Method O2 Flow Rate 97.9 F 51 L 17 94/50 L 93 Nasal Cannula 2 01/22/24 10:57 01/22/24 10:57 01/22/24 10:57 01/22/24 10:57 01/22/24 10:57 01/22/24 10:57 01/22/24 10:57 Oxygen Flow Rate (L/min) 2 Oxygen Delivery Method Nasal Cannula Weight: 78.5 kg Body Mass Index (BMI) 24.1 Intake & Output: Intake and Output for Last 24 Hours 01/20/24 01/21/24 01/22/24 23:59 23:59 23:59 Intake Total 715.17 / 715.17 Output Total 500 / 500 350 / 350 Balance -500 / -500 365.17 / 365.17 Lab / Micro Data 01/22/24 04:30 01/22/24 08:53 Labs: Laboratory Results - last 24 hr 01/21/24 19:50: WBC 6.1, RBC 4.63, Hgb 14.2, Hct 43.7, MCV 94.4 H, MCH 30.7, MCHC 32.5, RDW Std Deviation 54.0 H, RDW Coeff of Laney 15.9 H, Plt Count 198, MPV 11.8, Immature Gran % (Auto) 0.300, Neut % (Auto) 66.5, Lymph % (Auto) 22.3, [place] % (Auto) 8.2, Eos % (Auto) 2.0, Baso % (Auto) 0.7, Absolute Neuts (auto) 4.1, Absolute Lymphs (auto) 1.37, Nucleated RBC % 0, PT Cancelled, INR Cancelled, Sodium 139, Potassium 4.8, Chloride 113 H, Carbon Dioxide 23.0, Anion Gap 3 L, BUN 45 H, Creatinine 1.76 H, Estim Creat Clear Calc 33.87, Est GFR (MDRD) Af Amer 48 L, Est GFR (MDRD) Non-Af 39 L, BUN/Creatinine Ratio 25.6 H, Glucose 132 H, Calcium 8.8, Blood Type Cancelled, Antibody Screen Cancelled 01/22/24 04:30: WBC 8.5, RBC 4.50 L, Hgb 14.0, Hct 42.7, MCV 94.9 H, MCH 31.1, MCHC 32.8, RDW Std Deviation 54.6 H, RDW Coeff of Laney 15.7 H, Plt Count 160, MPV 11.3, Immature Gran % (Auto) 0.200, Neut % (Auto) 75.7 H, Lymph % (Auto) 14.4 L, [place] % (Auto) 8.0, Eos % (Auto) 1.3, Baso % (Auto) 0.4, Absolute Neuts (auto) 6.4, Absolute Lymphs (auto) 1.22, Nucleated RBC % 0, PT 16.3 H, INR 1.3, Sodium 142, Potassium 4.1, Chloride 114 H, Carbon Dioxide 23.0, Anion Gap 5, BUN 44 H, Creatinine 1.77 H, Estim Creat Clear Calc 33.68, Est GFR (MDRD) Af Amer 47 L, Est GFR (MDRD) Non-Af 39 L, BUN/Creatinine Ratio 24.9 H, Glucose 108 H, Calcium 8.2 L, Phosphorus 4.1, Magnesium 1.9, Total Bilirubin 1.00, AST 30, ALT 35, Alkaline Phosphatase 137 H, Total Protein 6.6, Albumin 3.0 L, Globulin 3.6, Albumin/Globulin Ratio 0.8 L, Vitamin D 25-Hydroxy 33.8, TSH 2.94, Blood Type A POSITIVE, Antibody Screen NEGATIVE 01/22/24 08:53: Sodium 141, Potassium 4.1, Chloride 114 H, Carbon Dioxide 26.0, Anion Gap 1 L, BUN 42 H, Creatinine 1.79 H, Estim Creat Clear Calc 33.30, Est GFR (MDRD) Af Amer 47 L, Est GFR (MDRD) Non-Af 39 L, BUN/Creatinine Ratio 23.5 H, Glucose 99, Calcium 8.7, Total Bilirubin 1.10 H, AST 30, ALT 33, Alkaline Phosphatase 140 H, Total Protein 6.7, Albumin 3.1 L, Globulin 3.6, Albumin/Globulin Ratio 0.9 Radiography Diagnostic Testing: Radiology Impression Hip/Pelvis X-Ray 01/21/24 19:15 IMPRESSION: 1. There is a lucent area along the right femoral neck concerning for a left femoral neck fracture. 2. Mild degenerative findings in both hips. Electronically Signed: Vidal Casiano MD at 19:40 EST , ADDENDUM: 01/21/242017 IMPRESSION: 1. There is a lucent area along the right femoral neck concerning for a RIGHT femoral neck fracture. 2. Mild degenerative findings in both hips. Electronically Signed: Vidal Casiano MD at 20:11 EST , ADDENDUM: 01/21/242018 IMPRESSION: 1. There is a lucent area along the right femoral neck concerning for a left femoral neck fracture. 2. Mild degenerative findings in both hips. Electronically Signed: Vidal Casiano MD at 19:40 EST , ADDENDUM: 01/21/242019 IMPRESSION: 1. There is a lucent area along the right femoral neck concerning for a RIGHT femoral neck fracture. 2. Mild degenerative findings in both hips. Electronically Signed: Vidal Casiano MD at 20:11 EST , ADDENDUM: 01/21/242022 IMPRESSION: 1. There is a lucent area along the right femoral neck concerning for a RIGHT femoral neck fracture. 2. Mild degenerative findings in both hips. Electronically Signed: Vidal Casiano MD at 20:11 EST Reading Location ID and State: [facility] / [place] , Service support , Chest X-Ray 01/21/24 20:25 IMPRESSION: Pulmonary findings appear improved. Electronically Signed: Vidal Casiano MD at 20:57 EST Reading Location ID and State: [facility] / [place] , Service support , Rhythm Strip Rhythm Strip: A-fib Rate: 60 Physical Exam Const alert, oriented x3, no apparent distress and average body habitus Constitutional Narrative: Pleasant elderly male, sitting up comfortably in bed, conversing normally, no acute distress. General Appearance: cooperative and comfortable HEENT normocephalic, head/scalp atraumatic, hearing grossly normal bilaterally, nasal mucous membranes and turbinates normal and moist oral mucous membranes Eyes PERRL, EOMs intact bilaterally and conjunctivae normal Neck full ROM Chest inspection of chest normal Resp normal respiratory effort and no use of accessory muscles Resp Narrative: Breathing comfortably on 3 L nasal cannula. Mildly decreased breath sounds throughout bilaterally. No wheezing or crackles noted. Cardio regular rate, regular rhythm, no murmurs and peripheral pulses 2+ throughout GI normal to inspection, nondistended, normoactive bowel sounds, soft to palpation, non-tender and non-distended Back/Spine normal ROM Extremity no pedal edema Extremity Narrative: Right lower extremity with no shortening or external rotation noted. Skin no rashes or lesions noted Neuro no focal motor deficits and no sensory deficits noted Speech: speech normal Psych mental status grossly normal Assessment & Plan Assessment/Plan (1) Closed fracture of right hip: QUALIFIERS: Encounter type: initial encounter Qualified Code(s): S72.001A - Fracture of unspecified part of neck of right femur, initial encounter for closed fracture PLAN: Plan Patient is an 83-year-old male who presented to [facility] ED on 01/21/2024 with right hip pain after mechanical fall at home. 1. Right femoral neck fracture after mechanical fall ? Orthopedics following. Planning for surgery on 01/22 after patient was medically cleared for surgery by cardiology on 01/21. N.p.o. at midnight. ? Pain control with Tylenol as needed, IV morphine as needed. ? PT/OT/case management following. 2. HFrEF ? Cardiology evaluated. Noted that recent TTE on 12/24/2023 showed that EF worsened from 55 to 25%, showed severe global hypokinesis. He was subsequently aggressively titrated on guideline directed medical therapy with beta-pilar, ARB, spironolactone. Was noted on recent chest x-ray to have pleural effusions and some pulmonary congestion, has since dropped to 10 pounds in the last 3 days on Lasix. Currently stable from cardiovascular standpoint. Continue p.o. Lasix, losartan, Toprol, spironolactone. 3. CKD stage III ? Creatinine 1.76 on admit, at baseline. Continue to monitor BMP daily. Chronic medical conditions: ? Paroxysmal A-fib: Holding home Eliquis. ? Hypertension, hyperlipidemia: Continue home metoprolol, statin. ? History of SSS s/p pacemaker placement ? GERD: Continue home PPI. ? Depression: Continue home duloxetine. DVT prophylaxis: SCDs CODE STATUS: Full code, verified Expected disposition: TBD Total clinical time spent by myself addressing the patient's medical issues, reviewing all the data, and collaborating with patient's care team: 35 minutes. Charges/Coding Visit Charges Inpatient E&M: 32231 Subs Hosp L2
[2024-01-22] MEDS: Metoprolol(XL)Succ 25 MG Tablet PO (14:52)
[2024-01-22] MEDS: Furosemide 40 MG Tablet PO (14:52)
[2024-01-22] MEDS: Spironolactone 25 MG Tablet PO (17:20)
[2024-01-22] MEDS: Losartan Potassium 25 MG Tablet PO (17:20)
[2024-01-22] MEDS: Senna/Docusate Sodium 1 Tablet 2 TABLET PO (21:33)
[2024-01-22] MEDS: Fluticasone 0.05% 1 SPRAY NASAL.SRY NASAL (21:33)
[2024-01-22] MEDS: Atorvastatin Calcium 40 MG Tablet PO (21:34)
[2024-01-23] VITALS (16 sets, daily range): BP systolic 89–121; BP diastolic 60–93; PULSE 51–102; RESP 16–18; TEMP 36.4–37; O2SAT 88–98; BMI 26.2
--- NOTE | 2024-01-23 05:55 | EKG12_ITS ---
Test Reason : AM EKG Blood Pressure : / mmHG Vent. Rate : 073 BPM Atrial Rate : 073 BPM P-R Int : 328 ms QRS Dur : 160 ms QT Int : 482 ms P-R-T Axes : 081 -40 146 degrees QTc Int : 531 ms Sinus rhythm with 1st degree A-V block Left axis deviation Left bundle branch block Abnormal ECG When compared with ECG of 22-JAN-2024 05:55, MANUAL COMPARISON REQUIRED, DATA IS UNCONFIRMED Confirmed by Hitesh Esqueda ([id number]), graphics editor TAN ARAMBULA ([id number]) on 01/23/2024 2:20:54 PM Referred By: Confirmed By:Hitesh Esqueda
[2024-01-23 06:41] LABS: Absolute Lymphocyte Count 1.18 X10^3/uL (0.83-4.51); Absolute Neutrophil Count 6.9 X10^3/uL (2.0-7.7); Basophil# 0.05 X10^3/uL; Basophil% 0.5 % (0-1); Eosinophil# 0.19 X10^3/uL; Eosinophils% 2.1 % (0-5); Hematocrit 45.4 % (40-54); Hemoglobin 14.2 g/dL (13.0-16.5); Lymphocyte # 1.18 X10^3/ul (0.83-4.51); Lymphocyte % 12.8 % (19-41); Mean Corp Hgb Conc 31.3 g/dL (32-36); Mean Corpuscular Hgb 29.7 pg (27.0-32.0); Mean Platelet Vol. 11.7 fl (6.2-12.0); Monocyte% 9.7 % (0-10); NRBC Flagged by Analyzer 0 % (0-5); Neutrophil % 74.6 % (47-70); Platelet Count 173 K/mm3 (150-450); RBC Distribution Width CV 15.7 % (11.6-14.6); RBC Distribution Width SD 54.7 fl (35.1-43.9); Red Blood Count 4.78 M/mm3 (4.6-6.2); White Blood Count 9.3 K/mm3 (4.4-11.0)
--- NOTE | 2024-01-23 07:35 | PN.CARD_ITS ---
Subjective Subjective The patient reports he is doing well. He is resting comfortably in the recumbent position. He denies any anginal symptoms denies any PND orthopnea. I's and O's are positive from yesterday. Objective Data Vital Signs: Vital Signs Temp Pulse Resp BP Pulse Ox O2 Del Method O2 Flow Rate 97.6 F L 102 H 16 115/70 94 Nasal Cannula 3 01/23/24 04:45 01/23/24 04:45 01/23/24 04:45 01/23/24 04:45 01/23/24 04:45 01/23/24 04:45 01/23/24 04:45 Oxygen Flow Rate (L/min) 3 Oxygen Delivery Method Nasal Cannula Weight: 187 lb 13.341 oz Body Mass Index (BMI) 26.2 Intake & Output: Intake and Output for Last 24 Hours 01/21/24 01/22/24 01/23/24 23:59 23:59 23:59 Intake Total 1375.17 / 1375.17 0 / 0 Output Total 500 / 500 750 / 875 125 / 125 Balance -500 / -500 625.17 / 500.17 -125 / -125 Lab / Micro Data Attestation: I reviewed the patient's lab results. 01/23/24 06:00 01/22/24 08:53 Labs: Laboratory Results - last 24 hr 01/22/24 04:30: Vitamin D 25-Hydroxy 33.8 01/22/24 08:53: Sodium 141, Potassium 4.1, Chloride 114 H, Carbon Dioxide 26.0, Anion Gap 1 L, BUN 42 H, Creatinine 1.79 H, Estim Creat Clear Calc 33.30, Est GFR (MDRD) Af Amer 47 L, Est GFR (MDRD) Non-Af 39 L, BUN/Creatinine Ratio 23.5 H , Glucose 99, Calcium 8.7, Total Bilirubin 1.10 H, AST 30, ALT 33, Alkaline Phosphatase 140 H, Total Protein 6.7, Albumin 3.1 L, Globulin 3.6, Albumin/Globulin Ratio 0.9 01/23/24 06:00: WBC 9.3, RBC 4.78, Hgb 14.2, Hct 45.4, MCV 95.0 H, MCH 29.7, MCHC 31.3 L, RDW Std Deviation 54.7 H, RDW Coeff of Laney 15.7 H, Plt Count 173, MPV 11.7, Immature Gran % (Auto) 0.300, Neut % (Auto) 74.6 H, Lymph % (Auto) 12.8 L, [place] % (Auto) 9.7, Eos % (Auto) 2.1, Baso % (Auto) 0.5, Absolute Neuts (auto) 6.9, Absolute Lymphs (auto) 1.18, Nucleated RBC % 0 Rhythm Strip Rhythm Strip: Sinus Rhythm Rate: 60 Cardiology Labs/Tests 01/22/24 08:53: Sodium 141, Potassium 4.1, Chloride 114 H, Carbon Dioxide 26.0, Anion Gap 1 L, BUN 42 H, Creatinine 1.79 H, Est GFR (MDRD) Af Amer 47 L, Est GFR (MDRD) Non-Af 39 L, BUN/Creatinine Ratio 23.5 H, Glucose 99, Calcium 8.7, Total Bilirubin 1.10 H 01/23/24 06:00: WBC 9.3, RBC 4.78, Hgb 14.2, Hct 45.4, MCV 95.0 H, MCH 29.7, MCHC 31.3 L, Plt Count 173, MPV 11.7, Immature Gran % (Auto) 0.300, Neut % (Auto) 74.6 H, Lymph % (Auto) 12.8 L, [place] % (Auto) 9.7, Eos % (Auto) 2.1, Baso % (Auto) 0.5, Absolute Neuts (auto) 6.9, Nucleated RBC % 0 Rhythm: EKG: ECHO: Stress Test: Cardiac Cath: PCI: CT Surgery: Holter monitor: EPS: PPM: CXR: Chest CT Scan: Physical Exam Const oriented x3 General Appearance: other Appearance of dry mucous membranes in his oral cavity. HEENT normocephalic Eyes EOMs intact bilaterally Neck Neck Narrative: JVD at the clavicle at 30 degrees. Chest inspection of chest normal Chest: left pectoral incision Resp normal respiratory effort Auscultation: crackles bilateral lower Cardio regular rate, regular rhythm, S1 normal heart sound, S2 normal heart sound, no murmurs, no rub and no gallops GI soft to palpation Extremity General Extremity: edema right lower extremity trace Skin no rashes or lesions noted Neuro Neuro Narrative: Alert and oriented x 3 Psych mental status grossly normal Assessment & Plan Assessment/Plan (1) Paroxysmal atrial fibrillation: PLAN: The patient appears to be in sinus rhythm majority of the time. He does have a history of paroxysmal atrial fibrillation has been on long-term oral anticoagulation and has a dual-chamber pacemaker in place. (2) HFrEF (heart failure with reduced ejection fraction): PLAN: The patient's heart failure appears to be adequately compensated. He was recently aggressively diuresed in the ambulatory setting. He is resting comfortably in a recumbent position with no PND orthopnea his lung sounds are clear and much improved from an exam done last week in the ambulatory setting. From a cardiovascular standpoint I believe the patient is is compensated he is going to be to proceed with surgical intervention. His usual blood pressure runs in the 90-110 systolic range. He is hemodynamically stable on today's exam. (3) Left bundle branch block (LBBB): PLAN: Chronic left bundle branch block and also intermittently has a paced rhythm. (4) Closed fracture of right hip: QUALIFIERS: Encounter type: initial encounter Qualified Code(s): S72.001A - Fracture of unspecified part of neck of right femur, initial encounter for closed fracture PLAN: Patient is scheduled for surgical intervention later today. (5) Chronic anticoagulation: PLAN: Chronic oral anticoagulation should be reinstituted for his atrial fibrillation at the discretion of the surgical team. PLAN: Plan 1. The patient is is compensated we will be able to get him to undergo surgical intervention. From a cardiovascular standpoint I believe is appropriate to proceed with surgery today. 2. Need to monitor his I's and O's closely and maintain him equal or slightly negative. 3. Will reinstitute his oral anticoagulation at the surgical team's discretion. Charges/Coding Visit Charges Inpatient E&M: 92852 Subs Hosp L2
[2024-01-23 08:06] LABS: Anion Gap 6 (5-15); BUN 54 mg/dL (7-18); BUN/Creat Ratio 22.6 RATIO (10-20); Calcium,Total 8.7 mg/dL (8.5-10.1); Chloride 109 mmol/L (98-107); Creatinine, Serum 2.39 mg/dL (0.70-1.30); EST Glomerular Filtration Rate 28 mL/min (>60); Est Glom Filt Rate - Afr Amer 34 mL/min (>60); Estimated Creatinine Clearance 24.94 ml/min; Glucose 109 mg/dL (74-106); Potassium 4.6 mmol/L (3.5-5.1); Sodium Level 137 mmol/L (136-145)
--- NOTE | 2024-01-23 10:13 | PN.HOSP_ITS ---
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 Patient seen at bedside this morning. Sitting up comfortably in bed, conversing normally, no acute distress. Reports continued moderate hip pain with movement, no pain at rest. Looking forward to having the surgery done this afternoon. No other acute concerns morning. Objective Data Objective Data Vital Signs: Vital Signs Temp Pulse Resp BP Pulse Ox O2 Del Method O2 Flow Rate 97.9 F 74 16 99/72 98 Nasal Cannula 3 01/23/24 08:38 01/23/24 08:38 01/23/24 08:38 01/23/24 08:38 01/23/24 08:38 01/23/24 08:38 01/23/24 08:29 Oxygen Flow Rate (L/min) 3 Oxygen Delivery Method Nasal Cannula Weight: 85.2 kg Body Mass Index (BMI) 26.2 Intake & Output: Intake and Output for Last 24 Hours 01/21/24 01/22/24 01/23/24 23:59 23:59 23:59 Intake Total 1375.17 / 1375.17 0 / 0 Output Total 500 / 500 750 / 875 125 / 125 Balance -500 / -500 625.17 / 500.17 -125 / -125 Lab / Micro Data 01/23/24 06:00 01/23/24 06:00 Labs: Laboratory Results - last 24 hr 01/23/24 06:00: WBC 9.3, RBC 4.78, Hgb 14.2, Hct 45.4, MCV 95.0 H, MCH 29.7, MCHC 31.3 L, RDW Std Deviation 54.7 H, RDW Coeff of Laney 15.7 H, Plt Count 173, MPV 11.7, Immature Gran % (Auto) 0.300, Neut % (Auto) 74.6 H, Lymph % (Auto) 12.8 L, [place] % (Auto) 9.7, Eos % (Auto) 2.1, Baso % (Auto) 0.5, Absolute Neuts (auto) 6.9, Absolute Lymphs (auto) 1.18, Nucleated RBC % 0, Sodium 137, Potassium 4.6, Chloride 109 H, Carbon Dioxide 22.0, Anion Gap 6, BUN 54 H, Creatinine 2.39 H, Estim Creat Clear Calc 24.94, Est GFR (MDRD) Af Amer 34 L, Est GFR (MDRD) Non-Af 28 L, BUN/Creatinine Ratio 22.6 H, Glucose 109 H, Calcium 8.7 Rhythm Strip Rhythm Strip: Sinus Rhythm Rate: 60 Physical Exam Const alert, oriented x3, no apparent distress and average body habitus Constitutional Narrative: Pleasant elderly male, sitting up comfortably in bed, conversing normally, no acute distress. General Appearance: cooperative and comfortable HEENT normocephalic, head/scalp atraumatic, hearing grossly normal bilaterally, nasal mucous membranes and turbinates normal and moist oral mucous membranes Eyes PERRL, EOMs intact bilaterally and conjunctivae normal Neck full ROM Chest inspection of chest normal Resp normal respiratory effort and no use of accessory muscles Resp Narrative: Breathing comfortably on 3 L nasal cannula. Mildly decreased breath sounds throughout bilaterally. No wheezing or crackles noted. Cardio regular rate, regular rhythm, no murmurs and peripheral pulses 2+ throughout GI normal to inspection, nondistended, normoactive bowel sounds, soft to palpation, non-tender and non-distended Back/Spine normal ROM Extremity no pedal edema Extremity Narrative: Right lower extremity with no shortening or external rotation noted. Skin no rashes or lesions noted Neuro no focal motor deficits and no sensory deficits noted Speech: speech normal Psych mental status grossly normal Assessment & Plan Assessment/Plan (1) Closed fracture of right hip: QUALIFIERS: Encounter type: initial encounter Qualified Code(s): S72.001A - Fracture of unspecified part of neck of right femur, initial encounter for closed fracture PLAN: Plan Patient is an 83-year-old male who presented to [facility] ED on 01/21/2024 with right hip pain after mechanical fall at home. 1. Right femoral neck fracture after mechanical fall ? Orthopedics following. Surgery planned for this afternoon. ? Pain control with scheduled Tylenol, oxycodone and IV Dilaudid as needed. ? PT/OT/case management following. 2. HFrEF ? Cardiology evaluated. Noted that recent TTE on 12/24/2023 showed that EF worsened from 55 to 25%, showed severe global hypokinesis. He was subsequently aggressively titrated on guideline directed medical therapy with beta-pilar, ARB, spironolactone. Was noted on recent chest x-ray to have pleural effusions and some pulmonary congestion, has since dropped to 10 pounds in the last 3 days on Lasix. Currently stable from cardiovascular standpoint. Continue p.o. Lasix, losartan, Toprol, spironolactone. 3. CKD stage III ? Creatinine 1.76 on admit, at baseline. Continue to monitor BMP daily. Chronic medical conditions: ? Paroxysmal A-fib: Holding home Eliquis. ? Hypertension, hyperlipidemia: Continue home metoprolol, statin. ? History of SSS s/p pacemaker placement ? GERD: Continue home PPI. ? Depression: Continue home duloxetine. DVT prophylaxis: SCDs CODE STATUS: Full code, verified Expected disposition: Home with home health care versus SNF, 2 to 3 days Total clinical time spent by myself addressing the patient's medical issues, reviewing all the data, and collaborating with patient's care team: 25 minutes. Charges/Coding Visit Charges Inpatient E&M: 42669 [facility] Hosp L1
[2024-01-23] MEDS: Losartan Potassium 25 MG Tablet PO (10:30)
[2024-01-23] MEDS: Metoprolol(XL)Succ 25 MG Tablet PO (10:30)
--- NOTE | 2024-01-23 15:00 | HIP_PTH ---
PATIENT: BERNY INFANTE LOC: PCU U#:[id number] AGE/SX: 83/M ROOM: [facility] RE01/21/[address]: Dr. Gerardo Schulz DO : 1940 BED: 1 DIS: 01/25/2024 SPEC #: [id number] RECD: 01/24/24 12:12 STATUS: CHANDNI REQ #: [id number] KRISTIAN: 01/23/24 15:[address]: Facundo Reaves DEPT: SURGICAL PATHOLOGY RECD BY: Zena Wolfe ENTERED: 01/24/24 12:12 SP TYPE: TOTAL HIP OTHR DR: DO Dr. Joelle Lepe MD Dr. David de Lorenzo, DO Dr. Michael Hughes, MD Dr. Nicholas Spittle, Tissues: Hip, NOS Procedures: Decalcification bone/plaque Surgery Specimen Level IV Comments: @ Ordering doctor for DEC edited from to @ mil RUSSELL at 01/24/24 1522 @ Ordering doctor for SUIV edited from to @ by DREW at 01/24/24 1522 @ Submitting doctor edited from to @ by DREW at 01/24/24 1522 HEADER OPERATION: Right hip hemiarthroplasty PRE-OP DIAGNOSIS: Minimally displaced right subcapital femoral neck fracture TISSUE SUBMITTED: Right femoral head MICROSCOPIC DIAGNOSIS Right femoral head, total hip replacement/resection: Femoral head with focal minimal degenerative osteoarthritic changes and focal area of hemorrhage, clinically right subcapital femoral neck fracture. SJ:stone 01/29/2024 COMMENT Case has been reviewed in consultation with Dr. Wade who concurs with the above diagnosis. IDC:AM MICROSCOPIC DESCRIPTION Slides are reviewed. GROSS DESCRIPTION Received is one container labeled with the patient's name and designated right femoral head. The specimen consists of a wen femoral head measuring 5.0 x 5.0 x 4.0 cm. The articular surface shows focal area of break in the articular cartilage. A few osteophyte formation is also noted. The resection margin is irregular and hemorrhagic. Also present in the specimen container are detached pieces of bone measuring in aggregate 4.0 x 4.0 x 2.0 cm. Grinder Tender sections are submitted in three cassettes after decalcification as follows: 1 - detached fragments of bone, 2 & 3 - femoral head. / NATACHA:stone 01/24/2024 TC:5 CPT: 15623, 03261
[2024-01-23] MEDS: Cefazolin 2 GM in 0.9% Normal Saline (100mL Bag) 100 ML IV (16:30)
[2024-01-23] MEDS: Bupivacaine Mpf 0.5% 30 ML VIAL (17:39)
--- NOTE | 2024-01-23 18:11 | PCM.OPRPT ---
Report of Operation Date of Procedure: 01/23/24 Description of Surgical Findings:: Preoperative diagnosis: Right displaced femoral neck fracture Postoperative diagnosis: Right displaced femoral neck fracture Procedure: Right hip hemiarthroplasty Surgeon: Facundo Reaves DO Anesthesia: General endotracheal Anesthesiologist: Dr. Gonzalez Complications: None apparent. Drains: None Estimated blood loss: 300 cc Urinary output: None recorded IV fluids: 800 cc crystalloid Specimens: Left femoral head Surgical implants: [place] Accolade two 127 degree neck angle hip stem size #5, Unitrax neck adjustment sleeve -4 mm, Unitrax endoprosthesis head component outer diameter 52 mm Indications: This is an 83-year-old male who sustained a ground-level fall on 01/21/2024. He was admitted under the service of the hospitalist after x-rays and [facility] emergency department revealed a minimally displaced right femoral neck fracture. There was significant anterior displacement on the lateral projection. I saw the patient in consultation. I recommended right hip hemiarthroplasty. Patient received his last dose of Eliquis the evening of the fall and I felt it most appropriate to await surgical intervention until today. I reviewed the procedure with the patient, its risk, benefits, alternatives. Risks included but were not limited to bleeding, infection, loss of life or limb, risk of anesthesia, neurovascular injury, persistent pain, instability, need for additional surgery, failure of orthopedic hardware, loosening, osteolysis, need for assistive devices long-term. Patient expressed understanding wish to proceed with surgery. Description of procedure: Prior to the procedure, patient was brought to the preoperative holding area where patient was identified by name, medical record number and date of . I confirmed the side, site, operation to be performed with the patient. Informed consent was confirmed, All questions were answered to patient satisfaction. The operative extremity was marked. He was also seen by anesthesia staff and anesthesia consent obtained.At time of the operative procedure, pt was brought to the operative suite. General anesthesia was induced on the hospital bed and endotracheal tube placed. After adequate anesthesia, patient was transferred to a standard operating table. He was then positioned in the lateral decubitus position with the right side up and held in position by Risktail hip positioner system. All bony prominences were well-padded. An axillary roll was placed under the patient's left axilla. Peroneal nerve was free with a blanket on the nonoperative extremity. Leg lengths were reproduced from patient's position when he was supine. The right lower extremity was then prepped and draped in normal, sterile orthopedic fashion. We performed a timeout with all parties in attendance in agreement with the side, site, and operation to be performed. No concerns were voiced and would like to proceed. 2 g Ancef was administered prior to incision by anesthesia staff. I first marked an incision along the lateral aspect of the hip centered over the greater trochanteric tip. In standard posterior approach, a curvilinear incision was made above the trochanter. An approximately 10 cm incision was made. Skin was sharply incised with a 10 blade scalpel carried deep through subcutaneous layers to the level of the IT band. Gelpi retractors were then placed. A Jacobsen was used to expose the fascia di. Bovie cautery was then used for hemostasis and then to open the fascia. This was opened in line with the incision. A Charnley retractor was then placed. Sciatic nerve was free. The trochanteric bursa was then debrided. This identified the short external rotators after internal rotation of the hip. The fracture site was easily identified at this point. Short external rotators were taken down and tagged for later repair. Hip capsule was also tagged for repair with a stay suture. We then freshened the neck cut with a sagittal saw. Anterior and posterior acetabular retractors were placed to gain access to the femoral head. A corkscrew was used to remove the head. Any remaining debris was debrided from the acetabulum. We then placed the femoral head on the back table for measurement. We did use trial heads and selected a final size 52 with good suction fit. Box chisel was then utilized to gain access to the femoral canal. Canal finder was placed. Sequential broaches were used and press-fit manner. A final size 5 achieved excellent vertical and rotational stability. We then trialed with a standard and subsequently high offset stem. I offset did achieve excellent stability and reproduction of abductor tension. Leg lengths appeared appropriate with a -4 neck length. Trials were then removed. We copiously irrigated the wound with normal saline solution. A size 5 stem was then impacted with excellent fixation. Final head was then impacted over the Hernandez taper neck. Final reduction was performed. The hip was brought through range of motion and was stable. Leg lengths appeared appropriate. A 1 minute soak with Irrisept was performed. Wound was then copiously irrigated with normal saline solution. A posterior capsular repair was performed with #2 Ethibond suture via bone tunnels. Fascia was closed watertight with #1 strata fix. Deeper fascial layers were closed with 0 Vicryl suture in interrupted fashion. Subcutaneous layers were reapproximated with 2-0 Vicryl suture and skin reapproximated with skin loren. A silver dressing was applied. Patient tolerated procedure well without complication. He was positioned back in the supine position on her hospital bed and subsequently extubated safely. He was transferred to PACU in stable condition. Blankets were placed between the patient's legs. Post Operative Plan: Weightbearing: Weightbearing as tolerated right lower extremity, posterior hip precautions. Blankets between legs first 24 hours Antibiotics: Ancef 2 g every 8 hours x 3 doses DVT Prophylaxis: Restart home Eliquis tomorrow morning, SCDs, AICHA hose, early mobilization Devlin: None Dressing: Maintain silver dressing x7 days X-Rays: PACU x-rays were reviewed demonstrated well-positioned right hip hemiarthroplasty implant. Follow-up: 2 weeks in my office for staple removal and x-rays upon arrival.
--- NOTE | 2024-01-23 18:30 | RAD_ITS ---
STUDY: X-RAY - PELVIS AND RIGHT HIP REASON FOR EXAM: Male, 83 years old. Post Op -- AP both hips on single veronica/lateral of op hip PACU TECHNIQUE: 1 views of the pelvis and hip. COMPARISON: None. FINDINGS: Right hip prosthesis is noted in anatomic alignment and position with surgical clips at the operative site. There are also surgical clips noted within the pelvis bilaterally RAD/Hip Min 2 Views (Portable) IMPRESSION: Status post right hip prosthesis placement. Electronically Signed: Doc Palacio MD at 19:40 EST ,
[2024-01-23] MEDS: Vitamin B Comp W-C Capsule 1 CAP PO (22:24)
[2024-01-23] MEDS: Atorvastatin Calcium 40 MG Tablet PO (22:24)
[2024-01-23] MEDS: Furosemide 40 MG Tablet PO (22:24)
[2024-01-23] MEDS: Pantoprazole Sodium 40 MG Tablet PO (22:24)
[2024-01-23] MEDS: Senna/Docusate Sodium 1 Tablet 2 TABLET PO (22:24)
[2024-01-23] MEDS: DULoxetine Hcl 30 MG Capsule PO (22:24)
[2024-01-23] MEDS: Spironolactone 25 MG Tablet PO (22:25)
[2024-01-23] MEDS: Cefazolin 1 GM/50 ML BAG IV (22:25)
[2024-01-23] MEDS: Fluticasone 0.05% 1 SPRAY NASAL.SRY NASAL (22:25)
[2024-01-23] MEDS: Acetaminophen 500 MG Tablet 1000 MG PO (22:33)
[2024-01-24] VITALS (9 sets, daily range): BP systolic 65–114; BP diastolic 43–75; PULSE 64–85; RESP 16–17; TEMP 36.1–36.6; O2SAT 93–100; BMI 24.5
[2024-01-24] MEDS: Sucralfate 1 GM Tablet PO ×2 (06:38→17:39)
[2024-01-24] MEDS: Acetaminophen 500 MG Tablet 1000 MG PO ×3 (06:38→21:46)
[2024-01-24] MEDS: oxyCODONE 5 MG Tablet PO (06:38)
[2024-01-24 08:07] LABS: Hemoglobin 13.9 g/dL (13.0-16.5); Mean Corp Hgb Conc 31.6 g/dL (32-36); Mean Corpuscular Hgb 29.6 pg (27.0-32.0); Mean Corpuscular Volume 93.8 fL (80-94); Mean Platelet Vol. 12.5 fl (6.2-12.0); Platelet Count 188 K/mm3 (150-450); RBC Distribution Width CV 15.6 % (11.6-14.6); RBC Distribution Width SD 53.1 fl (35.1-43.9); Red Blood Count 4.69 M/mm3 (4.6-6.2); White Blood Count 11.1 K/mm3 (4.4-11.0)
[2024-01-24 08:33] LABS: Anion Gap 13 (5-15); BUN 53 mg/dL (7-18); BUN/Creat Ratio 21.3 RATIO (10-20); Chloride 105 mmol/L (98-107); Creatinine, Serum 2.49 mg/dL (0.70-1.30); EST Glomerular Filtration Rate 26 mL/min (>60); Est Glom Filt Rate - Afr Amer 32 mL/min (>60); Estimated Creatinine Clearance 23.94 ml/min; Glucose 133 mg/dL (74-106); Potassium 4.3 mmol/L (3.5-5.1); Sodium Level 138 mmol/L (136-145)
[2024-01-24] MEDS: 0.9% Saline Lock 10 ML Syringe IV (09:43)
[2024-01-24] MEDS: 0.9% Normal Saline (1000mL) 1,000 ML 999 ML IV (09:44)
[2024-01-24] MEDS: Folic Acid 1 MG Tablet PO ×2 (10:01→16:41)
[2024-01-24] MEDS: Vitamin B Comp W-C Capsule 1 CAP PO ×2 (10:02→21:45)
[2024-01-24] MEDS: DULoxetine Hcl 30 MG Capsule PO ×2 (10:03→21:45)
[2024-01-24] MEDS: Senna/Docusate Sodium 1 Tablet 2 TABLET PO (10:04)
[2024-01-24] MEDS: Cefazolin 1 GM/50 ML BAG IV ×2 (10:10→21:45)
[2024-01-24] MEDS: Calcium Carbonate 500 MG Tablet PO ×3 (10:10→16:41)
--- NOTE | 2024-01-24 10:15 | PN.CARD_ITS ---
Subjective Subjective The patient reports that he has been up and walked a couple of times in the room. He received oxycodone this morning at approximately 0630 hrs. and his blood pressure dropped into the 75 systolic range. He was given a bolus of fluid as I walked in the room he had received 300 cc. He has an ejection fraction of 25% he was not overly short of breath at the time. We rechecked his blood pressure which was at approximately 1000 hrs. It was up to 81 systolic. Historically has had blood pressures in the 85-95 systolic range. The patient's vasoactive drugs have been held for today. And I asked the nursing staff to discuss with the surgical team about alternative pain control. He has a history of delirium and hypotension with narcotics on a recent hospitalization. Objective Data Vital Signs: Vital Signs Temp Pulse Resp BP Pulse Ox O2 Del Method O2 Flow Rate 96.9 F L 67 16 65/45 L 100 Room Air 2 01/24/24 09:22 01/24/24 09:22 01/24/24 09:22 01/24/24 09:22 01/24/24 09:22 01/24/24 09:22 01/24/24 04:51 Oxygen Flow Rate (L/min) 2 Oxygen Delivery Method Room Air Weight: 176 lb 5.917 oz Body Mass Index (BMI) 24.5 Intake & Output: Intake and Output for Last 24 Hours 01/22/24 01/23/24 01/24/24 23:59 23:59 23:59 Intake Total 1375.17 / 1375.17 160 / 380 220 / 220 Output Total 750 / 875 550 / 850 1000 / 1000 Balance 625.17 / 500.17 -390 / -470 -780 / -780 Lab / Micro Data Attestation: I reviewed the patient's lab results. 01/24/24 07:05 01/24/24 07:05 Labs: Laboratory Results - last 24 hr 01/24/24 07:05: WBC 11.1 H, RBC 4.69, Hgb 13.9, Hct 44.0, MCV 93.8, MCH 29.6, MCHC 31.6 L, RDW Std Deviation 53.1 H, RDW Coeff of Laney 15.6 H, Plt Count 188, MPV 12.5 H, Sodium 138, Potassium 4.3, Chloride 105, Carbon Dioxide 20.0 L, Anion Gap 13, BUN 53 H, Creatinine 2.49 H, Estim Creat Clear Calc 23.94, Est GFR (MDRD) Af Amer 32 L, Est GFR (MDRD) Non-Af 26 L, BUN/Creatinine Ratio 21.3 H, Glucose 133 H, Calcium 9.0 Rhythm Strip Rhythm Strip: PACED Rate: 72 Cardiology Labs/Tests 01/24/24 07:05: WBC 11.1 H, RBC 4.69, Hgb 13.9, Hct 44.0, MCV 93.8, MCH 29.6, MCHC 31.6 L, Plt Count 188, MPV 12.5 H, Sodium 138, Potassium 4.3, Chloride 105, Carbon Dioxide 20.0 L, Anion Gap 13, BUN 53 H, Creatinine 2.49 H, Est GFR (MDRD) Af Amer 32 L, Est GFR (MDRD) Non-Af 26 L, BUN/Creatinine Ratio 21.3 H, Glucose 133 H, Calcium 9.0 Rhythm: EKG: ECHO: Stress Test: Cardiac Cath: PCI: CT Surgery: Holter monitor: EPS: PPM: CXR: Chest CT Scan: Radiography Diagnostic Testing: Radiology Impression Hip X-Ray 01/23/24 18:30 IMPRESSION: Status post right hip prosthesis placement. Electronically Signed: Doc Palacio MD at 19:40 EST Reading Location ID and State: [address] [place] [address] Tel , Service support , Physical Exam Const oriented x3 HEENT normocephalic Eyes EOMs intact bilaterally Neck Neck Narrative: JVD at the clavicle at 30 degrees. Chest inspection of chest normal Resp normal respiratory effort Auscultation: rales bilateral lower and diminished lung sounds right lower Cardio regular rate, regular rhythm, S1 normal heart sound, S2 normal heart sound, no murmurs, no rub and no gallops Cardio Narrative: Ventricular paced rhythm. GI normal to inspection, nondistended, normoactive bowel sounds Extremity General Extremity: edema right lower extremity trace Skin no rashes or lesions noted Neuro Neuro Narrative: Oriented x 3 Psych mental status grossly normal Assessment & Plan Assessment/Plan (1) Paroxysmal atrial fibrillation: PLAN: The patient's underlying rhythm is atrial fibrillation he is a ventricular paced rhythm at 72 beats a minute today. He should be reduced instituted on his oral anticoagulation therapy when cleared by the surgical team. (2) CKD (chronic kidney disease), stage III: QUALIFIERS: Chronic kidney disease stage 3 subtype: stage 3b (GFR 30-44) Qualified Code(s): N18.32 - Chronic kidney disease, stage 3b PLAN: The patient's creatinine was 2.39 when he was admitted and up to 2.49 today. He did receive a bolus of fluid and we had diuresed him the week prior to admission due to him being volume overloaded in the home environment. (3) Pacemaker: PLAN: Pacemaker was interrogated today postoperatively. I do not have that report yet. (4) HFrEF (heart failure with reduced ejection fraction): PLAN: The patient's ejection fraction is known to be in the 25% range on a recent echocardiogram. He was recently decompensated with volume overload in his home environment. We need to be very judicious with volume in this given situation. His hypotension earlier this morning was temporally correlated with his narcotic administration and he has a history of sensitivity to narcotics recently been admitted with delirium and hypotension. I asked nursing staff to discuss with the surgical team about alternatives to oxycodone or Percocet which he has had intolerances to in the past. We will hold his vasoactive medications until his blood pressure is consistently above 90-95 systolic. Historically his blood pressure runs in the 85-105 range. PLAN: Plan Would hold any further volume replacement at this time. Reevaluate pain management to avoid hypotension if possible. Will hold his vasoactive drugs for the next 12 hours. And until his systolic is consistently above 90-95. Charges/Coding Visit Charges Inpatient E&M: 03897 Subs Hosp L3
[2024-01-24] MEDS: Pantoprazole Sodium 40 MG Tablet PO ×2 (10:43→21:46)
[2024-01-24] MEDS: Fluticasone 0.05% 1 SPRAY NASAL.SRY NASAL ×2 (10:45→21:47)
[2024-01-24] MEDS: APIXABAN 2.5 MG TABLET (WCH) PO ×2 (10:45→21:47)
--- NOTE | 2024-01-24 13:21 | PCM.PN.HOSP ---
Reason for Visit Reason for Visit: Diagnoses Left bundle-branch block, unspecified (01/21/24) Paroxysmal atrial fibrillation (01/21/24) Unspecified systolic (congestive) heart failure (01/21/24) Chronic kidney disease, stage 3b (01/21/24) Fracture of unspecified part of neck of right femur, initial encounter for closed fracture (01/21/24) Unspecified fall, initial encounter (01/21/24) alf (current) use of anticoagulants (01/21/24) Personal history of other diseases of the circulatory system (01/21/24) Presence of cardiac pacemaker (01/21/24) Subjective Subjective Patient tolerated replacement well yesterday, no immediate postoperative complications. No acute events overnight. This morning, was alerted by nursing staff around 8 AM that patient was significantly hypotensive with blood pressure in the 60s over 40s while sitting in his chair. He felt lightheaded and dizzy at that time. Did not have a syncopal episode. Initially started IV fluids due to concern for possible volume repletion from recent procedure and recent heavy diuresis with mildly increasing creatinine. However, discussed over the phone with Dr. Esqueda with cardiology and he noted that the patient had a very similar episode after receiving pain medication a few weeks ago. Because the patient has a significantly decreased ejection fraction and was quite volume overloaded with about 10 pounds of diuresis over the last week, Dr. Esqueda recommended stopping the IV fluids. Patient only received about 200 cc of fluids total. His blood pressure recovered well over the next several minutes to an hour or so. When I saw him around 10 AM, his blood pressure was 90s/50s. He was sitting up comfortably in bed, conversing normally, in no acute distress. Family was present at the bedside. He reported very minimal right hip pain at this time. States he was able to walk around with therapy earlier this morning and had minimal pain with movement as well. He otherwise denied any acute concerns at this time. Objective Data Objective Data Vital Signs: Vital Signs Temp Pulse Resp BP Pulse Ox O2 Del Method O2 Flow Rate 96.9 F L 75 16 98/58 L 95 Room Air 2 01/24/24 09:22 01/24/24 12:54 01/24/24 09:22 01/24/24 12:54 01/24/24 10:40 01/24/24 10:40 01/24/24 04:51 Oxygen Flow Rate (L/min) 2 Oxygen Delivery Method Room Air Weight: 80 kg Body Mass Index (BMI) 24.5 Intake & Output: Intake and Output for Last 24 Hours 01/22/24 01/23/24 01/24/24 23:59 23:59 23:59 Intake Total 1375.17 / 1375.17 160 / 380 536.4 / 536.4 Output Total 750 / 875 550 / 850 1000 / 1000 Balance 625.17 / 500.17 -390 / -470 -463.6 / -463.6 Lab / Micro Data 01/24/24 07:05 01/24/24 07:05 Labs: Laboratory Results - last 24 hr 01/24/24 07:05: WBC 11.1 H, RBC 4.69, Hgb 13.9, Hct 44.0, MCV 93.8, MCH 29.6, MCHC 31.6 L, RDW Std Deviation 53.1 H, RDW Coeff of Laney 15.6 H, Plt Count 188, MPV 12.5 H, Sodium 138, Potassium 4.3, Chloride 105, Carbon Dioxide 20.0 L, Anion Gap 13, BUN 53 H, Creatinine 2.49 H, Estim Creat Clear Calc 23.94, Est GFR (MDRD) Af Amer 32 L, Est GFR (MDRD) Non-Af 26 L, BUN/Creatinine Ratio 21.3 H, Glucose 133 H, Calcium 9.0 Radiography Diagnostic Testing: Radiology Impression Hip X-Ray 01/23/24 18:30 IMPRESSION: Status post right hip prosthesis placement. Electronically Signed: Doc Palacio MD at 19:40 EST Reading Location ID and State: [facility] / [place] Tel , Service support , Rhythm Strip Rhythm Strip: PACED Rate: 72 Physical Exam Const alert, oriented x3, no apparent distress and average body habitus Constitutional Narrative: Pleasant elderly male, sitting up comfortably in bed, conversing normally, no acute distress. General Appearance: cooperative and comfortable HEENT normocephalic, head/scalp atraumatic, hearing grossly normal bilaterally, nasal mucous membranes and turbinates normal and moist oral mucous membranes Eyes PERRL, EOMs intact bilaterally and conjunctivae normal Neck full ROM Chest inspection of chest normal Resp normal respiratory effort and no use of accessory muscles Resp Narrative: Breathing comfortably on room air. Mildly decreased breath sounds throughout bilaterally. No wheezing or crackles noted. Cardio regular rate, regular rhythm, no murmurs and peripheral pulses 2+ throughout GI normal to inspection, nondistended, normoactive bowel sounds, soft to palpation, non-tender and non-distended Back/Spine normal ROM Extremity no pedal edema Extremity Narrative: Right lower extremity with no overt external postoperative changes. Skin no rashes or lesions noted Neuro no focal motor deficits and no sensory deficits noted Speech: speech normal Psych mental status grossly normal Assessment & Plan Assessment/Plan (1) Closed fracture of right hip: QUALIFIERS: Encounter type: initial encounter Qualified Code(s): S72.001A - Fracture of unspecified part of neck of right femur, initial encounter for closed fracture (2) HFrEF (heart failure with reduced ejection fraction): (3) Acute kidney injury: PLAN: Plan Patient is an 83-year-old male who presented to [facility] ED on 01/21/2024 with right hip pain after mechanical fall at home. 1. Right femoral neck fracture after mechanical fall ? Orthopedics following. S/p right total hip replacement on 01/22. Patient tolerated procedure well, no immediate postoperative complications. ? Pain control with scheduled Tylenol; notably had significant blood pressure drop with only oxycodone 5 mg, will decrease to oxycodone 2.5 mg every 4 hours as needed and encouraged patient to use only sparingly as needed. ? PT/OT/case management following. Planning for SNF on discharge. 2. HFrEF, hypotensive episode ? Cardiology following. Recent TTE on 12/24/2023 showed that EF worsened from 55 to 25%, showed severe global hypokinesis. Patient was subsequently aggressively titrated on guideline directed medical therapy with beta-pilar, ARB, spironolactone and dropped about 10 pounds prior to hospitalization on Lasix therapy. ? Patient did have a hypotensive episode on morning of 01/23, with BP dropped into the 60s over 40s. Patient did not syncopize. Per cardiology, patient had similar episode after receiving pain medication recently, was suspected that this was the cause. Initially gave IV fluids but then discontinued them given patient's heart failure, only received about 200 cc of fluids. ? Holding home BP medications today per cardiology, will reevaluate tomorrow. 3. SYLVIA on CKD stage III ? Creatinine 1.76 on admit, at baseline. Creatinine remained stable until 01/22 when it increased to 2.39. Creatinine 2.49 postoperatively on 01/23. ? Cardiology following as above. Suspect mild volume depletion from recent heavy diuresis and recent procedure. Holding home BP meds today as noted above. ? Monitor BMP and urine output daily. Chronic medical conditions: ? Paroxysmal A-fib: Holding home Eliquis. Will defer to orthopedics on timing of restarting anticoagulation. ? Hypertension, hyperlipidemia: Continue home statin. Holding home metoprolol. ? History of SSS s/p pacemaker placement ? GERD: Continue home PPI. ? Depression: Continue home duloxetine. DVT prophylaxis: SCDs CODE STATUS: Full code, verified Expected disposition: SNF, 2 to 3 days Total clinical time spent by myself addressing the patient's medical issues, reviewing all the data, and collaborating with patient's care team: 35 minutes. Charges/Coding Visit Charges Inpatient E&M: 24761 Subs Hosp L2
--- NOTE | 2024-01-24 13:39 | CASEMGMT ---
SW reviewed therapy notes and noted therapy is recommending continued rehab for patient. SW met with patient. Introduced self and role at [facility]. SW spoke with patient about d/c plan. Patient said he wants to stay here at [facility] for rehab. Patient said he is okay with Rehab Unit or TCU. Patient declined a list of facilities unless neither [facility] unit can take him. SW made a referral to [facility] for Rehab or TCU. Eve CAR
--- NOTE | 2024-01-24 14:36 | CASEMGMT ---
TCU accepted patient. Lara will start the pre-cert. NOLVIA went to patient's room to notify him, but he was sleeping. NOLVIA will try again later. Plan: d/c to [facility] TCU pending insurance approval. Eve CAR
--- NOTE | 2024-01-24 17:18 | PCM.PN.ORT ---
Subjective Subjective Patient seen and examined. Patient denies any complaints at this time other than fatigue. He reports his pain is well-controlled his right hip. He states he is up with nursing staff to the bathroom 5 times today. He also states he worked with physical therapy. Hypotension has been noted throughout the day today. He denies any fevers, chills, nausea vomiting, chest pain or shortness of breath. Objective Data Objective Data Vital Signs: Vital Signs Temp Pulse Resp BP Pulse Ox O2 Del Method O2 Flow Rate 96.9 F L 64 16 89/58 L 93 Room Air 2 01/24/24 14:03 01/24/24 16:33 01/24/24 14:03 01/24/24 16:33 01/24/24 14:03 01/24/24 14:03 01/24/24 04:51 Oxygen Flow Rate (L/min) 2 Oxygen Delivery Method Room Air Weight: 176 lb 5.917 oz Body Mass Index (BMI) 24.5 Intake & Output: Intake and Output for Last 24 Hours 01/22/24 01/23/24 01/24/24 23:59 23:59 23:59 Intake Total 1375.17 / 1375.17 160 / 380 536.4 / 536.4 Output Total 750 / 875 550 / 850 1100 / 1100 Balance 625.17 / 500.17 -390 / -470 -563.6 / -563.6 Lab / Micro Data 01/24/24 07:05 01/24/24 07:05 Labs: Laboratory Results - last 24 hr 01/24/24 07:05: WBC 11.1 H, RBC 4.69, Hgb 13.9, Hct 44.0, MCV 93.8, MCH 29.6, MCHC 31.6 L, RDW Std Deviation 53.1 H, RDW Coeff of Laney 15.6 H, Plt Count 188, MPV 12.5 H, Sodium 138, Potassium 4.3, Chloride 105, Carbon Dioxide 20.0 L, Anion Gap 13, BUN 53 H, Creatinine 2.49 H, Estim Creat Clear Calc 23.94, Est GFR (MDRD) Af Amer 32 L, Est GFR (MDRD) Non-Af 26 L, BUN/Creatinine Ratio 21.3 H, Glucose 133 H, Calcium 9.0 Radiography Diagnostic Testing: Radiology Impression Hip X-Ray 01/23/24 18:30 IMPRESSION: Status post right hip prosthesis placement. Electronically Signed: Doc Palacio MD at 19:40 EST Reading Location ID and State: [facility] / [place] Tel , Service support , Rhythm Strip Rhythm Strip: PACED Rate: 72 Physical Exam Narrative General - A&Ox3, NAD. Hypotensive Right lower extremity -incisional dressing C/D/I. SILT Sural, Saphenous, SPN, DPN, Tibial N. distributions. DP, PT 2+. BCR. DF, PF, EHL 5/5. No calf TTP. Assessment & Plan Assessment/Plan (1) Closed fracture of right hip: QUALIFIERS: Encounter type: initial encounter Qualified Code(s): S72.001A - Fracture of unspecified part of neck of right femur, initial encounter for closed fracture PLAN: POD# 1 s/p right hip hemiarthroplasty - Pain control -agree with recommendations per cardiology and internal medicine regarding avoiding narcotic analgesics if possible. Patient feels he is okay for Tylenol only at this point. This certainly is fine from my standpoint. - Medicine following for medical management - [id number] as tolerated right lower extremity with a walker, posterior precautions x 6 weeks - DVT PPX -Home Eliquis restarted, SCDs, AICHA hose, early mobilization - Heels off bed -24 hours IV Ancef completed - Case management - D/C planning Discharge instructions: Maintain surgical dressing for 7 days postoperatively. Okay to shower postoperative day #4 with dressing on. Okay to remove surgical dressing and leave open to air if no drainage. Otherwise dry sterile dressing changes daily. Weightbearing as tolerated with walker right lower extremity. Posterior precautions x 6 weeks postoperatively. Plan to follow-up with [facility] approximately 2 weeks postoperatively for staple removal and x-rays.
[2024-01-24] MEDS: Atorvastatin Calcium 40 MG Tablet PO (21:46)
[2024-01-25 04:35] VITALS: BMI 25.6
[2024-01-25] MEDS: Acetaminophen 500 MG Tablet 1000 MG PO ×2 (05:48→13:24)
[2024-01-25] MEDS: Sucralfate 1 GM Tablet PO (05:48)
[2024-01-25 06:47] LABS: Hematocrit 38.2 % (40-54); Hemoglobin 12.9 g/dL (13.0-16.5); Mean Corp Hgb Conc 33.8 g/dL (32-36); Mean Corpuscular Volume 91.8 fL (80-94); Mean Platelet Vol. 12.1 fl (6.2-12.0); Platelet Count 179 K/mm3 (150-450); RBC Distribution Width CV 15.2 % (11.6-14.6); RBC Distribution Width SD 50.9 fl (35.1-43.9); Red Blood Count 4.16 M/mm3 (4.6-6.2); White Blood Count 9.9 K/mm3 (4.4-11.0)
[2024-01-25 07:07] LABS: Scan Indicated on CBC? Y/N NO
[2024-01-25 08:01] VITALS: BP 115/61; PULSE 68; RESP 14; TEMP 36; O2SAT 93
[2024-01-25] MEDS: Folic Acid 1 MG Tablet PO (08:03)
[2024-01-25] MEDS: Furosemide 40 MG Tablet PO (08:04)
[2024-01-25] MEDS: Vitamin B Comp W-C Capsule 1 CAP PO (08:04)
[2024-01-25] MEDS: APIXABAN 2.5 MG TABLET (WCH) PO (08:04)
[2024-01-25] MEDS: Spironolactone 25 MG Tablet PO (08:04)
[2024-01-25] MEDS: DULoxetine Hcl 30 MG Capsule PO (08:04)
[2024-01-25] MEDS: Losartan Potassium 25 MG Tablet PO (08:04)
[2024-01-25 08:05] VITALS: PULSE 68
[2024-01-25] MEDS: Metoprolol(XL)Succ 25 MG Tablet PO (08:05)
[2024-01-25] MEDS: Fluticasone 0.05% 1 SPRAY NASAL.SRY NASAL (08:05)
[2024-01-25] MEDS: Pantoprazole Sodium 40 MG Tablet PO (08:05)
[2024-01-25 08:20] LABS: Anion Gap 9 (5-15); BUN 71 mg/dL (7-18); BUN/Creat Ratio 24.7 RATIO (10-20); Calcium,Total 8.4 mg/dL (8.5-10.1); Chloride 106 mmol/L (98-107); Creatinine, Serum 2.88 mg/dL (0.70-1.30); EST Glomerular Filtration Rate 22 mL/min (>60); Est Glom Filt Rate - Afr Amer 27 mL/min (>60); Glucose 116 mg/dL (74-106); Potassium 4.5 mmol/L (3.5-5.1); Sodium Level 137 mmol/L (136-145)
[2024-01-25 09:29] VITALS: O2SAT 95
[2024-01-25] MEDS: Calcium Carbonate 500 MG Tablet PO ×2 (09:41→13:24)
--- NOTE | 2024-01-25 09:56 | PN.CARD_ITS ---
Subjective Subjective Patient reports he had 7 bowel movements yesterday but he did not pay attention to the color of the bowel movements he did note that they were soft but not lanny diarrhea. He had a history of melena on his last hospitalization and was diagnosed with a GI bleed. His hemoglobin is stable and within acceptable range s is 12.9 it was 13.9 earlier this admission. Patient reports that he still has some dyspnea on exertion but he feels better and breathing easier than yesterday. His I's and O's are -500 cc. His blood pressure has recovered with the avoidance of narcotics. Complain of any significant pain at this time. Objective Data Vital Signs: Vital Signs Temp Pulse Resp BP Pulse Ox O2 Del Method O2 Flow Rate 96.8 F L 68 14 115/61 95 Room Air 2 01/25/24 08:01 01/25/24 08:05 01/25/24 08:01 01/25/24 08:01 01/25/24 09:29 01/25/24 09:29 01/24/24 04:51 Oxygen Flow Rate (L/min) 2 Oxygen Delivery Method Room Air Weight: 183 lb 10.321 oz Body Mass Index (BMI) 25.6 Intake & Output: Intake and Output for Last 24 Hours 01/23/24 01/24/24 01/25/24 23:59 23:59 23:59 Intake Total 160 / 380 586.4 / 586.4 Output Total 550 / 850 1100 / 1100 Balance -390 / -470 -513.6 / -513.6 Lab / Micro Data Attestation: I reviewed the patient's lab results. 01/25/24 06:37 01/25/24 06:37 Labs: Laboratory Results - last 24 hr 01/25/24 06:37: WBC 9.9, RBC 4.16 L, Hgb 12.9 L, Hct 38.2 L, MCV 91.8, MCH 31.0, MCHC 33.8 D, RDW Std Deviation 50.9 H, RDW Coeff of Laney 15.2 H, Plt Count 179, MPV 12.1 H, Sodium 137, Potassium 4.5, Chloride 106, Carbon Dioxide 22.0, Anion Gap 9, BUN 71 H, Creatinine 2.88 H, Estim Creat Clear Calc 20.70, Est GFR (MDRD) Af Amer 27 L, Est GFR (MDRD) Non-Af 22 L, BUN/Creatinine Ratio 24.7 H, Glucose 116 H, Calcium 8.4 L Rhythm Strip Rhythm Strip: PACED Rate: 72 Cardiology Labs/Tests 01/25/24 06:37: WBC 9.9, RBC 4.16 L, Hgb 12.9 L, Hct 38.2 L, MCV 91.8, MCH 31.0, MCHC 33.8 D, Plt Count 179, MPV 12.1 H, Sodium 137, Potassium 4.5, Chloride 106, Carbon Dioxide 22.0, Anion Gap 9, BUN 71 H, Creatinine 2.88 H, Est GFR (MDRD) Af Amer 27 L, Est GFR (MDRD) Non-Af 22 L, BUN/Creatinine Ratio 24.7 H, Glucose 116 H, Calcium 8.4 L Rhythm: EKG: ECHO: Stress Test: Cardiac Cath: PCI: CT Surgery: Holter monitor: EPS: PPM: CXR: Chest CT Scan: Physical Exam Const oriented x3 HEENT normocephalic Eyes EOMs intact bilaterally Chest inspection of chest normal Chest: left pectoral incision Resp normal respiratory effort Auscultation: diminished lung sounds bilateral lower; Negative for crackles, rales or rhonchi Cardio regular rate, regular rhythm, S1 normal heart sound, S2 normal heart sound, no murmurs, no rub and no gallops Cardio Narrative: Distant heart tones. GI soft to palpation Extremity General Extremity: edema right lower extremity trace Skin no rashes or lesions noted Neuro Neuro Narrative: Alert and oriented x 3 Psych mental status grossly normal Assessment & Plan Assessment/Plan (1) Paroxysmal atrial fibrillation: PLAN: The telemetry shows the patient to be paced at 72 bpm it appears that the underlying rhythm is atrial fibs he is anticoagulated on Eliquis. Blood pressure is much improved and well-controlled today. (2) HFrEF (heart failure with reduced ejection fraction): PLAN: The patient has received his guideline directed medical therapy for LV dysfunction. His blood pressure and heart rate if tolerated he has a permanent pacemaker in place and his heart rate is 72. The metoprolol losartan and spironolactone should be continued as blood pressure will tolerate. From a cardiovascular standpoint the patient should be able to proceed with physical therapy as the surgical team feels indicated. I do feel that he is compensated at this point in time and if inpatient rehab is needed he should be able to be transferred to a rehab facility without any significant risk to his cardiovascular status. He does need to be maintained on his current meds. (3) CKD (chronic kidney disease), stage III: QUALIFIERS: Chronic kidney disease stage 3 subtype: stage 3b (GFR 30-44) Qualified Code(s): N18.32 - Chronic kidney disease, stage 3b PLAN: The patient's creatinine did drift up from 2.49-2.88. This needs to be monitored. Consideration may be given to adding Farxiga to his medical regiment but I will defer this to the primary service. He will need to have a basic metabolic panel checked in 1 week after discharge. And he should follow-up in our office in 2 to 3 weeks. PLAN: Plan 1. Repeat basic metabolic panel in the a.m. And in 1 week after discharge. 2. Will follow-up in outpatient setting in 2 to 3 weeks. 3. From a cardiovascular standpoint the patient can proceed with rehabilitation as directed by the surgical team. Charges/Coding Visit Charges Inpatient E&M: 96905 Subs Hosp L2
--- NOTE | 2024-01-25 10:02 | CASEMGMT ---
NOLVIA notified patient that TCU can take him. Patient was approved for [facility] TCU. NOLVIA notified physician. Plan: d/c to [facility] TCU Eve CAR
--- NOTE | 2024-01-25 10:10 | CASEMGMT ---
Insurance review for hospitals In-network with?[employer] insurance if transfer is recommended is as follows:?[facility], Jennifer, [facility], [facility], [facility], [facility], [facility], [place], and . Kirstie Shen, Discharge Planning Asst.
--- NOTE | 2024-01-25 12:24 | PCM.DC ---
Discharge Instructions Diet Discharge Diet: 4000 mg Sodium Diet Activity Discharge Activity: No Restrictions Weight Bearing Status: Weight bearing as tolerated Follow Up Care Test Results: Test results from this visit will be discussed in further detail at your follow-up appointment, if applicable. Discharge Plan Admission Admit Date/Time: 01/21/24 20:22 Primary Reason for Your Visit: Right hip fracture Attending Provider: Gerardo Schulz Primary Care Provider: Joelle Stern Consulting Providers: Heber Young; Hitesh Esqueda; Facundo Reaves Discharge Orders/Prescriptions Prescriptions: New acetaminophen 500 mg Tablet 1,000 mg PO Q8 Qty: 0 0RF Continued rosuvastatin 20 mg tablet 20 mg PO DAILY Patient Comments: take 1 tablet by mouth every morning Eliquis 2.5 mg tablet 2.5 mg PO BID Hold Instructions: Resume on 12/30/23. Patient Comments: take 1 tablet by mouth twice a day losartan 25 mg tablet 25 mg PO DAILY Qty: 30 11RF folic acid 1 mg Tablet 1 mg PO BID vitamin B complex Capsule 1 cap PO BID duloxetine 30 mg capsule,delayed release(DR/EC) 30 mg PO BID Hold Instructions: Resume on 12/25/23. spironolactone 25 mg Tablet 25 mg PO DAILY 30 Days Qty: 30 0RF metoprolol succinate 25 mg Tablet Extended Release 24 Hr 25 mg PO DAILY 30 Days Qty: 30 0RF fluticasone propionate 50 mcg/actuation [place],Suspension 1 spray NASAL BID 30 Days Qty: 16 0RF pantoprazole [Protonix] 40 mg tablet,delayed release (DR/EC) 40 mg PO BID 30 Days Qty: 60 0RF sucralfate [Carafate] 1 gram tablet 1 g PO BID 30 Days Qty: 60 0RF furosemide [Lasix] 40 mg tablet 40 mg PO DAILY Rx Instructions: Notify your cardiology if you use the medication. Referrals / Follow Up: Joelle Stern MD [Primary Care Provider] - Disposition Disposition (needs filled in before D/C Order can be placed): Assisted Facility
--- NOTE | 2024-01-25 12:27 | TREXTCAR_ITS ---
Diet Diet Order/Speech Therapy: 01/24/24 06:52 Diet: Regular - General Food consistency:: Regular Liquid Consistency:: Regular/Thin Is pt able to select menu?: Yes Routine Orders/Code Status Routine Lab Work: CBC (Please check tomorrow to ensure no significant drop with history of GI bleeding and recent hip replacement) and BMP (Please check daily through 01/28 to monitor SYLVIA) Code Status: Full Code Wound(s) RT HIP: Wound Type: Surgical Incision Therapies Weight Bearing: Weight bearing as tolerated Physical Therapy: Eval and Treat Occupational Therapy: Eval and Treat Problem/Diagnosis (1) Paroxysmal atrial fibrillation: Status: Acute Code(s): I48.0 - Paroxysmal atrial fibrillation Comment: Patient's underlying rhythm is atrial fibrillation pacer check. He will continue on Eliquis as tolerated. His rate is well-controlled with a blood pressure of 110/78 heart rate is 70 an MRI in the office. (2) HFrEF (heart failure with reduced ejection fraction): Status: Chronic Code(s): I50.20 - Unspecified systolic (congestive) heart failure Comment: The patient's ejection fraction had originally been diagnosed at 35% he was treated medically and improved to 50% upon his last hospitalization he was not on significant heart failure medical therapy. His EF was measured at 25% beta- pilar and spironolactone were instituted. His blood pressure is now better at 110 systolic and we will add additional ARB therapy. We will reevaluate the patient's LV function after he has been on at least 6 weeks of therapy. 2D echocardiogram will be done sometime in the next 6 to 12 weeks. (3) CKD (chronic kidney disease), stage III: Status: Chronic Code(s): N18.30 - Chronic kidney disease, stage 3 unspecified Comment: Patient's basic metabolic panel was repeated yesterday I do not have those results yet. Will reevaluate the patient's medical regiment pending the outcome of laboratory evaluations as noted above. Plan Patient is an 83-year-old male who presented to [facility] ED on 01/21/2024 with right hip pain after mechanical fall at home. Hospital course as noted below. Patient discharged to the TCU in stable condition on 01/24. 1. Right femoral neck fracture after mechanical fall ? Orthopedics followed. S/p right total hip replacement on 01/22. Patient tolerated procedure well, no immediate postoperative complications. ? Pain control with scheduled Tylenol. Please note that patient had significant blood pressure drop with only oxycodone 5 mg. If absolutely needed for pain, would recommend trying oxycodone 2.5 mg. ? PT/OT/case management followed. Discharged to TCU in stable condition on 01/24. 2. HFrEF, hypotensive episode ? Cardiology followed. Recent TTE on 12/24/2023 showed that EF worsened from 55 to 25%, showed severe global hypokinesis. Patient was subsequently aggressively titrated on guideline directed medical therapy with beta-pilar, ARB, spironolactone and dropped about 10 pounds prior to hospitalization on Lasix therapy. ? Patient did have a hypotensive episode on morning of 01/23, with BP dropped into the 60s over 40s. Patient did not syncopize. Per cardiology, patient had similar episode after receiving pain medication recently, was suspected that this was the cause. Initially gave IV fluids but then discontinued them given patient's heart failure, only received about 200 cc of fluids. ? Home BP medications restarted on afternoon 01/23. Blood pressures remained stable, volume status stable as well. ? Per cardiology, continue home Lasix 40 mg daily, losartan 25 mg daily, Toprol 25 mg daily, spironolactone 25 mg daily on discharge. Cardiology will follow-up with the patient in the office in 2 to 3 weeks and may consider initiating Farxiga at that time if able. 3. SYLVIA on CKD stage III ? Creatinine 1.76 on admit, at baseline. Creatinine remained stable until 01/22 when it increased to 2.39. Creatinine 2.49 postoperatively on 01/23. ? Creatinine did worsen to 2.88 on 01/24. Patient has maintained adequate urine output throughout this hospitalization. ? Cardiology followed as above. Suspect that mildly worsening creatinine is likely due to mild ATN in setting of intraoperative hypotension as well as episode of hypotension on 01/23. Okay to continue all home heart failure medications as noted above. ? Recommend repeating BMP daily through 01/28 to monitor kidney function closely. Monitor urine output as well. 4. Mild acute on chronic anemia, recent history of upper GI bleed ? Patient was recently hospitalized from 12/23 through 12/27, was found during that hospitalization to have both HFrEF as noted above as well as an acute upper GI bleed with melanotic stools. S/p EGD on 12/26 that showed grade D erosive esophagitis with no bleeding as well as oozing duodenal ulcers that were injected and treated with heater probe. ? Hemoglobin was 14.3 on that admission on 12/23, decreased to 12.5 on discharge. On this admission on 01/20 hemoglobin was 14.2. Remained stable through 01/23, then decreased from 13.9 on 01/23 to 12.9 on 01/24. Patient had several bowel movements during that time, unsure if they were dark stools or had any overt blood. ? Will maintain patient on p.o. PPI twice daily. Suspect acute hemoglobin drop is most likely secondary to intraoperative blood loss with hip replacement. Recommend repeat CBC on morning of 01/25 to ensure no significant drop. ? Notably, patient's home Eliquis 2.5 mg twice daily for paroxysmal A-fib was held for his procedure, was restarted on morning of 01/23. Chronic medical conditions: ? Paroxysmal A-fib: Continue home Eliquis as noted above. Continue Lopressor for rate control. ? Hypertension, hyperlipidemia: Continue home BP medications as noted above. Continue home statin. ? History of SSS s/p pacemaker placement ? GERD: Continue home PPI. ? Depression: Continue home duloxetine. Total clinical time spent by myself addressing the patient's medical issues, reviewing all the data, and collaborating with patient's care team: 45 minutes. Allergies/Procedures Done in Hospital Allergies Iodinated Contrast Media Allergy (Severe, Verified 01/21/24 18:13) Shortness of breath iodine Allergy (Verified 01/21/24 18:13) Shortness of breath Procedures: EKG and - (Right total hip replacement, hip x-ray x 2, chest x-ray) Type of Care/Length of Stay Estimated LOS: Convalescent Care Less Than 30 days Type of Care Needed: Skilled Rehab Potential: Fair Prognosis: Fair Additional Orders/Day of Discharge H&P will serve as current which was dated: 01/21/24 Day of Discharge: 01/25/24 Dietary and Speech Recommendations Dietitian Recommendations/Changes: Continue cardiac diet prior to NPO for surgery. ONS as needed once diet resumed post-op. Discharge Plan Admission Admit Date/Time: 01/21/24 20:22 Primary Reason for Your Visit: Right hip fracture Attending Provider: Gerardo Schulz Primary Care Provider: Joelle Stern Consulting Providers: Heber Young; Hitesh Esqueda; Facundo Reaves Discharge Orders/Prescriptions Prescriptions: New acetaminophen 500 mg Tablet 1,000 mg PO Q8 Qty: 0 0RF Continued rosuvastatin 20 mg tablet 20 mg PO DAILY Patient Comments: take 1 tablet by mouth every morning Eliquis 2.5 mg tablet 2.5 mg PO BID Hold Instructions: Resume on 12/30/23. Patient Comments: take 1 tablet by mouth twice a day losartan 25 mg tablet 25 mg PO DAILY Qty: 30 11RF folic acid 1 mg Tablet 1 mg PO BID vitamin B complex Capsule 1 cap PO BID duloxetine 30 mg capsule,delayed release(DR/EC) 30 mg PO BID Hold Instructions: Resume on 12/25/23. spironolactone 25 mg Tablet 25 mg PO DAILY 30 Days Qty: 30 0RF metoprolol succinate 25 mg Tablet Extended Release 24 Hr 25 mg PO DAILY 30 Days Qty: 30 0RF fluticasone propionate 50 mcg/actuation [place],Suspension 1 spray NASAL BID 30 Days Qty: 16 0RF pantoprazole [Protonix] 40 mg tablet,delayed release (DR/EC) 40 mg PO BID 30 Days Qty: 60 0RF sucralfate [Carafate] 1 gram tablet 1 g PO BID 30 Days Qty: 60 0RF furosemide [Lasix] 40 mg tablet 40 mg PO DAILY Rx Instructions: Notify your cardiology if you use the medication. Referrals / Follow Up: Joelle Stern MD [Primary Care Provider] - Disposition Disposition (needs filled in before D/C Order can be placed): Detention Facility Charges/Coding Visit Charges Inpatient E&M: 97479 Disch Hosp >30min (3) CKD (chronic kidney disease), stage III Qualifiers: Chronic kidney disease stage 3 subtype: stage 3b (GFR 30-44) Qualified Code(s): N18.32 - Chronic kidney disease, stage 3b
--- NOTE | 2024-01-25 12:46 | PCM.DC.SUM ---
Providers Date of Admission: 01/21/24 Date of Discharge: 01/25/24 Primary Care Physician: Dr. Jeolle Stern MD Consultations 01/21/24 20:28 Consult: Orthopedics Routine Consulting Provider: Facundo Reaves Reason for Consult: Right Femoral Neck Fx after Fall. EMERGENT Consult: No Notified: Yes Date Notified: 01/22/24 Time Notified: 06:41 Method of Notification: Text 01/22/24 07:49 Consult: Cardiology Routine Consulting Provider: Hitesh Esqueda Reason for Consult: Preoperative evaluation - known patient CHF with recent exacerbation, Afib EMERGENT Consult: No Notified: Yes Date Notified: 01/22/24 Time Notified: 07:34 Method of Notification: Text Reason For Visit: RIGHT HIP FX AFTER FALL + PAF Diagnosis Discharge Diagnosis (1) Paroxysmal atrial fibrillation: Status: Acute Code(s): I48.0 - Paroxysmal atrial fibrillation (2) HFrEF (heart failure with reduced ejection fraction): Status: Chronic Code(s): I50.20 - Unspecified systolic (congestive) heart failure (3) CKD (chronic kidney disease), stage III: Status: Chronic Code(s): N18.30 - Chronic kidney disease, stage 3 unspecified Qualifiers: Chronic kidney disease stage 3 subtype: stage 3b (GFR 30-44) Qualified Code(s): N18.32 - Chronic kidney disease, stage 3b Medications at Discharge Home Medications folic acid 1 mg tablet 1 mg PO BID supplement 10/11/21 vitamin B complex 1 cap PO BID vitamin 10/11/21 rosuvastatin 20 mg tablet 20 mg PO DAILY cholesterol 12/16/21 apixaban 2.5 mg tablet (Eliquis) 2.5 mg PO BID blood thinner 03/23/23 duloxetine 30 mg capsule,delayed release 30 mg PO BID DEPRESSION 12/15/23 metoprolol succinate 25 mg tablet,extended release 24 hr 25 mg PO DAILY BP 30 days #30 tabs 12/25/23 spironolactone 25 mg tablet 25 mg PO DAILY water pill 30 days #30 tabs 12/25/23 fluticasone propionate 50 mcg/actuation nasal spray,suspension 1 spray NASAL BID lungs/asthma 30 days #16 grams 12/27/23 pantoprazole 40 mg tablet,delayed release (Protonix) 40 mg PO BID acid reflux 30 days #60 tabs 12/27/23 sucralfate 1 gram tablet (Carafate) 1 g PO BID stomach 30 days #60 tabs 12/27/23 losartan 25 mg tablet 25 mg PO DAILY BP #30 tabs 01/17/24 furosemide 40 mg tablet (Lasix) 40 mg PO DAILY water pill 01/21/24 acetaminophen 500 mg tablet 1,000 mg (2 x 500 mg) PO Q8 pain/inflammati #0 tabs 01/25/24 Hospital Course Operations total hip replacement (right) Procedures EKG and - (CXR x 2, hip x-ray x 2, renal US) Summary of Care Provided Minutes Spent on Discharge: 45 Hospital Course: Patient is an 83-year-old male who presented to [facility] ED on 01/21/2024 with right hip pain after mechanical fall at home. Hospital course as noted below. Patient discharged to the TCU in stable condition on 01/24. 1. Right femoral neck fracture after mechanical fall ? Orthopedics followed. S/p right total hip replacement on 01/22. Patient tolerated procedure well, no immediate postoperative complications. ? Pain control with scheduled Tylenol. Please note that patient had significant blood pressure drop with only oxycodone 5 mg. If absolutely needed for pain, would recommend trying oxycodone 2.5 mg. ? PT/OT/case management followed. Discharged to TCU in stable condition on 01/24. 2. HFrEF, hypotensive episode ? Cardiology followed. Recent TTE on 12/24/2023 showed that EF worsened from 55 to 25%, showed severe global hypokinesis. Patient was subsequently aggressively titrated on guideline directed medical therapy with beta-pilar, ARB, spironolactone and dropped about 10 pounds prior to hospitalization on Lasix therapy. ? Patient did have a hypotensive episode on morning of 01/23, with BP dropped into the 60s over 40s. Patient did not syncopize. Per cardiology, patient had similar episode after receiving pain medication recently, was suspected that this was the cause. Initially gave IV fluids but then discontinued them given patient's heart failure, only received about 200 cc of fluids. ? Home BP medications restarted on afternoon 01/23. Blood pressures remained stable, volume status stable as well. ? Per cardiology, continue home Lasix 40 mg daily, losartan 25 mg daily, Toprol 25 mg daily, spironolactone 25 mg daily on discharge. Cardiology will follow-up with the patient in the office in 2 to 3 weeks and may consider initiating Farxiga at that time if able. 3. SYLVIA on CKD stage III ? Creatinine 1.76 on admit, at baseline. Creatinine remained stable until 01/22 when it increased to 2.39. Creatinine 2.49 postoperatively on 01/23. ? Creatinine did worsen to 2.88 on 01/24. Patient has maintained adequate urine output throughout this hospitalization. ? Cardiology followed as above. Suspect that mildly worsening creatinine is likely due to mild ATN in setting of intraoperative hypotension as well as episode of hypotension on 01/23. Okay to continue all home heart failure medications as noted above. ? Recommend repeating BMP daily through 01/28 to monitor kidney function closely. Monitor urine output as well. 4. Mild acute on chronic anemia, recent history of upper GI bleed ? Patient was recently hospitalized from 12/23 through 12/27, was found during that hospitalization to have both HFrEF as noted above as well as an acute upper GI bleed with melanotic stools. S/p EGD on 12/26 that showed grade D erosive esophagitis with no bleeding as well as oozing duodenal ulcers that were injected and treated with heater probe. ? Hemoglobin was 14.3 on that admission on 12/23, decreased to 12.5 on discharge. On this admission on 01/20 hemoglobin was 14.2. Remained stable through 01/23, then decreased from 13.9 on 01/23 to 12.9 on 01/24. Patient had several bowel movements during that time, unsure if they were dark stools or had any overt blood. ? Will maintain patient on p.o. PPI twice daily. Suspect acute hemoglobin drop is most likely secondary to intraoperative blood loss with hip replacement. Recommend repeat CBC on morning of 01/25 to ensure no significant drop. ? Notably, patient's home Eliquis 2.5 mg twice daily for paroxysmal A-fib was held for his procedure, was restarted on morning of 01/23. Chronic medical conditions: ? Paroxysmal A-fib: Continue home Eliquis as noted above. Continue Lopressor for rate control. ? Hypertension, hyperlipidemia: Continue home BP medications as noted above. Continue home statin. ? History of SSS s/p pacemaker placement ? GERD: Continue home PPI. ? Depression: Continue home duloxetine. Total clinical time spent by myself addressing the patient's medical issues, reviewing all the data, and collaborating with patient's care team: 45 minutes. Physical Exam Const alert, oriented x3, no apparent distress and average body habitus Constitutional Narrative: Pleasant elderly male, sitting up comfortably in bed, conversing normally, no acute distress. General Appearance: cooperative and comfortable HEENT normocephalic, head/scalp atraumatic, hearing grossly normal bilaterally, nasal mucous membranes and turbinates normal and moist oral mucous membranes Eyes PERRL, EOMs intact bilaterally and conjunctivae normal Neck full ROM Chest inspection of chest normal Resp normal respiratory effort and no use of accessory muscles Resp Narrative: Breathing comfortably on room air. Mildly decreased breath sounds throughout bilaterally. No wheezing or crackles noted. Cardio regular rate, regular rhythm, no murmurs and peripheral pulses 2+ throughout GI normal to inspection, nondistended, normoactive bowel sounds, soft to palpation, non-tender and non-distended Back/Spine normal ROM Extremity no pedal edema Extremity Narrative: Right lower extremity with no overt external postoperative changes. Skin no rashes or lesions noted Neuro no focal motor deficits and no sensory deficits noted Speech: speech normal Psych mental status grossly normal Weight / BMI Weight Weight: 83.3 kg Body Mass Index (BMI) 25.6 ABG / Lab / Microbiology Data 01/25/24 06:37 01/25/24 06:37 Laboratory: Laboratory Results - last 24 hr 01/25/24 06:37: WBC 9.9, RBC 4.16 L, Hgb 12.9 L, Hct 38.2 L, MCV 91.8, MCH 31.0, MCHC 33.8 D, RDW Std Deviation 50.9 H, RDW Coeff of [place] 15.2 H, Plt Count 179, MPV 12.1 H, Sodium 137, Potassium 4.5, Chloride 106, Carbon Dioxide 22.0, Anion Gap 9, BUN 71 H, Creatinine 2.88 H, Estim Creat Clear Calc 20.70, Est GFR (MDRD) Af Amer 27 L, Est GFR (MDRD) Non-Af 22 L, BUN/Creatinine Ratio 24.7 H, Glucose 116 H, Calcium 8.4 L D/C Instructions Discharge Diet: 4000 mg Sodium Diet Weight Bearing Status: Weight bearing as tolerated Meaningful Use Info Meaningful Use Diagnoses (Choose all that apply): None applicable Discharge Plan Admission Admit Date/Time: 01/21/24 20:22 Primary Reason for Your Visit: Right hip fracture Attending Provider: Gerardo Schulz Primary Care Provider: Joelle Stern Consulting Providers: Heber Young; Hitesh Esqueda; Facundo Reaves Discharge Orders/Prescriptions Prescriptions: New acetaminophen 500 mg Tablet 1,000 mg PO Q8 Qty: 0 0RF Continued rosuvastatin 20 mg tablet 20 mg PO DAILY Patient Comments: take 1 tablet by mouth every morning Eliquis 2.5 mg tablet 2.5 mg PO BID Hold Instructions: Resume on 12/30/23. Patient Comments: take 1 tablet by mouth twice a day losartan 25 mg tablet 25 mg PO DAILY Qty: 30 11RF folic acid 1 mg Tablet 1 mg PO BID vitamin B complex Capsule 1 cap PO BID duloxetine 30 mg capsule,delayed release(DR/EC) 30 mg PO BID Hold Instructions: Resume on 12/25/23. spironolactone 25 mg Tablet 25 mg PO DAILY 30 Days Qty: 30 0RF metoprolol succinate 25 mg Tablet Extended Release 24 Hr 25 mg PO DAILY 30 Days Qty: 30 0RF fluticasone propionate 50 mcg/actuation [place],Suspension 1 spray NASAL BID 30 Days Qty: 16 0RF pantoprazole [Protonix] 40 mg tablet,delayed release (DR/EC) 40 mg PO BID 30 Days Qty: 60 0RF sucralfate [Carafate] 1 gram tablet 1 g PO BID 30 Days Qty: 60 0RF furosemide [Lasix] 40 mg tablet 40 mg PO DAILY Rx Instructions: Notify your cardiology if you use the medication. Referrals / Follow Up: Joelle Stern MD [Primary Care Provider] - Disposition Disposition (needs filled in before D/C Order can be placed): Group Home Facility Charges/Coding Visit Charges Inpatient E&M: 67774 Disch Hosp >30min
--- NOTE | 2024-01-25 14:09 | PHA.DC.MR.R ---
Pharmacy [place] Med Reconciliation Pharmacy Service has performed discharge medication reconciliation for this patient upon transfer to TCU The patient's discharge medication list was reviewed for discrepancies and discrepancies were resolved. Medications at Discharge Home Medications folic acid 1 mg tablet 1 mg PO BID supplement 10/11/21 vitamin B complex 1 cap PO BID vitamin 10/11/21 rosuvastatin 20 mg tablet 20 mg PO DAILY cholesterol 12/16/21 apixaban 2.5 mg tablet (Eliquis) 2.5 mg PO BID blood thinner 03/23/23 duloxetine 30 mg capsule,delayed release 30 mg PO BID DEPRESSION 12/15/23 metoprolol succinate 25 mg tablet,extended release 24 hr 25 mg PO DAILY 30 days #30 tabs 12/25/23 spironolactone 25 mg tablet 25 mg PO DAILY 30 days #30 tabs 12/25/23 fluticasone propionate 50 mcg/actuation nasal spray,suspension 1 spray NASAL BID 30 days #16 grams 12/27/23 pantoprazole 40 mg tablet,delayed release (Protonix) 40 mg PO BID 30 days #60 tabs 12/27/23 sucralfate 1 gram tablet (Carafate) 1 g PO BID 30 days #60 tabs 12/27/23 losartan 25 mg tablet 25 mg PO DAILY #30 tabs 01/17/24 furosemide 40 mg tablet (Lasix) 40 mg PO DAILY 01/21/24 acetaminophen 500 mg tablet 1,000 mg (2 x 500 mg) PO Q8 #0 tabs 01/25/24
== END 2024-01-25 15:17 | disposition skilled nursing facility (03) | DRG 522 ==
LOC: ED 19:36 → PCU 20:43
PROVIDERS: Anesthesiology; Physician Assistant; Student in an Organized Health Care Education/Training Program; Admitting Provider Internal Medicine; Emergency Provider Emergency Medicine; PCP Internal Medicine; Visit Provider Hospitalist
PROC: 0SRR0JA Replacement of Right Hip Joint, Femoral Surface with Synthetic Substitute, Uncemented, Open Approach (ICD-10-PCS; CPT 27125; principal; 2024-01-23 14:40)
DX: S72.011A Unspecified intracapsular fracture of right femur, initial encounter for closed fracture (principal); I42.8 Other cardiomyopathies; I13.0 Hypertensive heart and chronic kidney disease with heart failure and stage 1 through stage 4 chronic kidney disease, or unspecified chronic kidney disease; I50.22 Chronic systolic (congestive) heart failure; I49.5 Sick sinus syndrome; N18.32 Chronic kidney disease, stage 3b; F32.A Depression, unspecified; I48.0 Paroxysmal atrial fibrillation; E78.5 Hyperlipidemia, unspecified; W18.39XA Other fall on same level, initial encounter; I95.2 Hypotension due to drugs; K21.00 Gastro-esophageal reflux disease with esophagitis, without bleeding; I25.10 Atherosclerotic heart disease of native coronary artery without angina pectoris; I44.7 Left bundle-branch block, unspecified; T40.2X5A Adverse effect of other opioids, initial encounter; Z95.0 Presence of cardiac pacemaker; Z79.01 Long term (current) use of anticoagulants; Z79.899 Other long term (current) drug therapy; Z87.19 Personal history of other diseases of the digestive system
CPT/HCPCS: 36415; 71045; 73502; 80048; 80053; 82306; 83735; 84100; 84443; 85025; 85027; 85610; 86850; 86900; 86901; 88305; 88311; 93005; 94668; 97116; 97162; 97166; 97530; 99252; 99283; C1776; J7030; J7040; J7120; A4216; G0463; J2405

== ENCOUNTER 2024-01-25 15:25 | Inpatient (IN) | payer MEDICARE, SELFPAY ==
[2024-01-25 15:37] VITALS: BP 98/59; PULSE 73; RESP 18; TEMP 36.4; O2SAT 97; BMI 24.7
--- NOTE | 2024-01-25 16:07 | US_ITS ---
INDICATION: SYLVIA. EXAMINATION: Ultrasound US Kidney(s) complete (eg, kidneys and bladder) TECHNIQUE: Alexandra scale and color doppler images were obtained of the kidneys. COMPARISON: No relevant prior comparison study available FINDINGS: RIGHT KIDNEY: 9.4 x 4.1 x 4.4 cm. There is no hydronephrosis. Multiple echogenic foci present suspicious for nonobstructive calculi, largest measuring 5 mm. Renal cortical thinning. LEFT KIDNEY: 11.5 x 3.8 x 5.1 cm. There is no hydronephrosis. No shadowing calculus, focal lesion or perinephric collection is demonstrated. URINARY BLADDER: No acute abnormality. US/Kidney and Bladder IMPRESSION: Right nonobstructive intrarenal calculi. Bilateral renal cortical thinning Electronically Signed: Heber Yun MD at 4:29 EST ,
[2024-01-25] MEDS: Ensure Plus High Protein 120 ML LIQUID PO (18:15)
[2024-01-25] MEDS: Folic Acid 1 MG Tablet PO (18:15)
[2024-01-25] MEDS: Fluticasone 0.05% 1 SPRAY NASAL.SRY NASAL (20:06)
[2024-01-25] MEDS: APIXABAN 2.5 MG TABLET (WCH) PO (20:07)
[2024-01-25] MEDS: Vitamin B Comp W-C Capsule 1 CAP PO (20:07)
[2024-01-25] MEDS: DULoxetine Hcl 30 MG Capsule PO (20:07)
[2024-01-25] MEDS: Acetaminophen 500 MG Tablet 1000 MG PO (20:07)
[2024-01-25] MEDS: Atorvastatin Calcium 40 MG Tablet PO (20:07)
[2024-01-25] MEDS: Pantoprazole Sodium 40 MG Tablet PO (20:08)
[2024-01-25] MEDS: Sucralfate 1 GM Tablet PO (20:08)
--- NOTE | 2024-01-25 20:53 | HP.PCM_ITS ---
HPI - General General Date of Admission: 01/25/24 Date of Service: 01/25/24 Chief Complaint: Here for rehabilitation. HPI Narrative 01/21/2024 BRENY INFANTE, is a 83 Male who presents to [facility] ED for fall. Fell on right hip, no head injury, unable to get up. T12 compression fracture November 2023, on Eliquis for atrial fibrillation. X-ray right hip fracture. Morphine, Zofran given. 01/21/2024 Admit to [facility]. Pain control, Prepare for surgery right hip fracture. 01/22/2024 Pain controlled. Cardiology medically cleared patient for surgery. 01/23/2024 Dr. Reaves performed right hip hemiarthroplasty. 01/24/2024 Hypotensive, improved with IV fluid bolus. Pain control, PT/OT. 01/24/2024 Pain well controlled, hypotensive. Tylenol for pain, avoid narcotics. PT/OT for debility. Home Eliquis for DVT prophylaxis. 01/25/2024 Creatinine 1.77, 1.79, 2.39, 2.49, 2.88 SYLVIA. 01/25/2024 Admit to TCU with debility, here for rehabilitation, strengthening, prior to discharge home with . [facility] Medical History (Updated 01/25/24 @ 21:[address] Brett Goldberg MD) Atrial flutter CKD (chronic kidney disease), stage III Depression Dyspnea Fall Fatigue HFrEF (heart failure with reduced ejection fraction) History of hay fever HTN (hypertension) Hyperkalemia, diminished renal excretion Hyperlipidemia Left bundle branch block (LBBB) Left ventricular diastolic dysfunction LVH (left ventricular hypertrophy) Non-ischemic cardiomyopathy Obstructive sleep apnea Prostate cancer Sick sinus syndrome Home Medications folic acid 1 mg tablet 1 mg PO BID supplement 10/11/21 [History Last Taken 12/15/21] vitamin B complex 1 cap PO BID vitamin 10/11/21 [History Last Taken 12/15/21] rosuvastatin 20 mg tablet 20 mg PO DAILY cholesterol 12/16/21 [History Last Taken 12/15/21] apixaban 2.5 mg tablet (Eliquis) 2.5 mg PO BID blood thinner 03/23/23 [History Last Taken Unknown] duloxetine 30 mg capsule,delayed release 30 mg PO BID DEPRESSION 12/15/23 [History Last Taken Unknown] metoprolol succinate 25 mg tablet,extended release 24 hr 25 mg PO DAILY BP 30 days #30 tabs 12/25/23 [Rx Last Taken Unknown] spironolactone 25 mg tablet 25 mg PO DAILY water pill 30 days #30 tabs 12/25/23 [Rx Last Taken Unknown] fluticasone propionate 50 mcg/actuation nasal spray,suspension 1 spray NASAL BID lungs/asthma 30 days #16 grams 12/27/23 [Rx Last Taken Unknown] pantoprazole 40 mg tablet,delayed release (Protonix) 40 mg PO BID acid reflux 30 days #60 tabs 12/27/23 [Rx Last Taken Unknown] sucralfate 1 gram tablet (Carafate) 1 g PO BID stomach 30 days #60 tabs 12/27/23 [Rx Last Taken Unknown] losartan 25 mg tablet 25 mg PO DAILY BP #30 tabs 01/17/24 [Rx Last Taken Unknown] furosemide 40 mg tablet (Lasix) 40 mg PO DAILY water pill 01/21/24 [History Last Taken Unknown] acetaminophen 500 mg tablet 1,000 mg (2 x 500 mg) PO Q8 pain/inflammati #0 tabs 01/25/24 [Rx Last Taken 01/25/24 05:50] Allergy/AdvReac Type Severity Reaction Status Date / Time Iodinated Contrast Media Allergy Severe Shortness Verified 01/21/24 18:13 of breath iodine Allergy Shortness Verified 01/21/24 18:13 of breath Surgical History (Updated 01/25/24 @ 21:[address] Brett Goldberg MD) History of left heart catheterization (12/17/21) History of prostate surgery History of right hip hemiarthroplasty History of total bilateral knee replacement Hx of appendectomy Social History household members: spouse Smoking Status: Never smoker alcohol intake: current alcohol intake frequency: 0-2 drinks per day Alcohol type: beer, wine and hard liquor details: 1 drink per night substance use type: does not use caffeine: Yes Type: coffee Number of servings: 2 what type of physical activity do you participate in: walking frequency: daily seatbelt use: always ROS Constitutional Constitutional: Denies chills, fever(s) or weight gain ENT HEENT: Denies headache(s), nasal congestion or nasal discharge Cardiovascular Cardiovascular: Denies chest pain or palpitations Respiratory/Chest Respiratory/Chest: Denies cough, excessive phlegm production or shortness of breath with exertion Gastrointestinal Gastrointestinal: Denies abdominal pain, nausea or vomiting Genitourinary Genitourinary: Denies dysuria Musculoskeletal Musculoskeletal: Denies joint pain or joint swelling Integumentary Integumentary: Denies rash or wounds Neurologic Neurologic: Denies focal weakness, numbness or tingling Psychiatric Psychiatric: Denies anxiety, auditory hallucinations, depression, homicidal ideation or suicidal ideation Vital Signs Vital Signs Vital Signs: 01/25/24 15:37 01/25/24 15:37 Temperature 97.5 F L Temperature Source Temporal Pulse Rate 73 Pulse Rhythm Regular Pulse Strength Normal (2+) Respiratory Rate 18 Respiratory Effort Normal Non-Labored Respiratory Depth Normal Respiratory Pattern Normal Blood Pressure 98/59 L Blood Pressure Mean 72 Blood Pressure Source Monitor Blood Pressure Position Semi-Fowlers Blood Pressure Location Left Arm Pulse Ox 97 Oxygen Delivery Method Room Air Room Air Weight Weight: 80.513 kg Body Mass Index (BMI) 24.7 Physical Exam Const alert General Appearance: cooperative HEENT normocephalic Eyes PERRL and EOMs intact bilaterally Neck supple, no JVD and no carotid bruits Resp normal respiratory effort, normal air movement and clear to auscultation bilaterally Cardio regular rate and regular rhythm GI normal to inspection, nondistended, normoactive bowel sounds, non-tender and non-distended Extremity normal capillary refill General Extremity: Negative for edema Skin no rashes or lesions noted General Skin Exam: no breakdown Psych affect normal Appearance: appropriate Assessment & Plan Assessment/Plan (1) Debility: (2) Closed fracture of right hip: QUALIFIERS: Encounter type: initial encounter Qualified Code(s): S72.001A - Fracture of unspecified part of neck of right femur, initial encounter for closed fracture (3) T12 compression fracture: (4) Acute kidney injury: (5) Atrial fibrillation: (6) Hyperlipidemia: (7) Depression: (8) GERD (gastroesophageal reflux disease): (9) HFrEF (heart failure with reduced ejection fraction): PLAN: Plan 83 year old male with below past medical history hospitalized for right hip fracture, underwent right hip hemiarthroplasty 01/23/[address] Reaves, postoperative course complicated by acute kidney injury, admitted to TCU with debility, here for rehabilitation, strengthening, prior to discharge home with . * Debility - PT/OT. * Pain - Tylenol 1000mg q8. * Bowel - senna/colace 1 tablet bid, Miralax 17gm daily prn. * Adult immunization - Administer pneumonia vaccine, covid vaccine, flu vaccine as appropriate. * DVT prophylaxis - Eliquis 2.5mg bid. * SYLVIA - renal ultrasound, consult Nephrology. * Hyperlipidemia - Atorvastatin 40mg qhs. 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 * Nutrition - Ensure Plus 120ml tidcm. * Allergic rhinitis - Flonase 1 spray nasal bid. * Folate deficiency - Folic acid 1mg bidcm. * HFrEF - Metoprolol succinate 25mg daily, Losartan 25mg daily, Aldactone 25mg daily, Furosemide 40mg daily. * Duodenal ulcer - Pantoprazole 40mg bid, Sucralfate 1gm bid. * Leg cramps - Vitamin B complex 1 cap bid.
--- NOTE | 2024-01-25 21:07 | NURSING ---
Call received from Dr. Goldberg, order received to monitor bladder and ensure patient is emptying bladder. New order for bladder scans and place cannon cath if result greater that 500mL. Orders repeated back to Dr. Goldberg
[2024-01-25] MEDS: Senna/Docusate Sodium 1 Tablet PO (23:25)
[2024-01-26] MEDS: Acetaminophen 500 MG Tablet 1000 MG PO ×3 (05:32→22:20)
[2024-01-26 06:10] LABS: Absolute Lymphocyte Count 2.08 X10^3/uL (0.83-4.51); Absolute Neutrophil Count 6.6 X10^3/uL (2.0-7.7); Basophil# 0.02 X10^3/uL; Basophil% 0.2 % (0-1); Eosinophil# 0.15 X10^3/uL; Eosinophils% 1.5 % (0-5); Hematocrit 39.1 % (40-54); Hemoglobin 12.8 g/dL (13.0-16.5); Lymphocyte # 2.08 X10^3/ul (0.83-4.51); Lymphocyte % 20.3 % (19-41); Mean Corp Hgb Conc 32.7 g/dL (32-36); Mean Corpuscular Hgb 30.6 pg (27.0-32.0); Mean Corpuscular Volume 93.5 fL (80-94); Mean Platelet Vol. 12.5 fl (6.2-12.0); Monocyte# 1.34 X10^3/uL; Monocyte% 13.1 % (0-10); NRBC Flagged by Analyzer 0 % (0-5); Neutrophil # 6.61 X10^3/uL (2.7-7.7); Neutrophil % 64.6 % (47-70); Platelet Count 200 K/mm3 (150-450); RBC Distribution Width CV 15.2 % (11.6-14.6); RBC Distribution Width SD 52.2 fl (35.1-43.9); Red Blood Count 4.18 M/mm3 (4.6-6.2); White Blood Count 10.2 K/mm3 (4.4-11.0)
[2024-01-26 08:38] LABS: Anion Gap 8 (5-15); BUN 82 mg/dL (7-18); BUN/Creat Ratio 29.3 RATIO (10-20); Calcium,Total 8.8 mg/dL (8.5-10.1); Chloride 105 mmol/L (98-107); EST Glomerular Filtration Rate 23 mL/min (>60); Est Glom Filt Rate - Afr Amer 28 mL/min (>60); Estimated Creatinine Clearance 21.29 ml/min; Glucose 100 mg/dL (74-106); Potassium 4.1 mmol/L (3.5-5.1); Sodium Level 135 mmol/L (136-145)
[2024-01-26] MEDS: Fluticasone 0.05% 1 SPRAY NASAL.SRY NASAL ×2 (08:38→22:19)
[2024-01-26] MEDS: Sucralfate 1 GM Tablet PO ×2 (08:39→22:20)
[2024-01-26] MEDS: DULoxetine Hcl 30 MG Capsule PO ×2 (08:39→22:20)
[2024-01-26] MEDS: Spironolactone 25 MG Tablet PO (08:39)
[2024-01-26] MEDS: Folic Acid 1 MG Tablet PO ×2 (08:39→17:58)
[2024-01-26] MEDS: Ensure Plus High Protein 120 ML LIQUID PO ×4 (08:39→22:36)
[2024-01-26] MEDS: Pantoprazole Sodium 40 MG Tablet PO ×2 (08:39→22:20)
[2024-01-26] MEDS: Vitamin B Comp W-C Capsule 1 CAP PO ×2 (08:39→22:20)
[2024-01-26] MEDS: Furosemide 40 MG Tablet PO (08:39)
[2024-01-26 08:46] VITALS: BP 90/54; PULSE 60
[2024-01-26] MEDS: APIXABAN 2.5 MG TABLET (WCH) PO ×2 (08:48→22:20)
[2024-01-26] MEDS: Tuberculin,Purif.prot.deriv. 50 TU/ML Vial 0.1 ML ID (09:41)
--- NOTE | 2024-01-26 13:31 | NURSING ---
Customer Service Representative Note; Activity Asst: Complete
--- NOTE | 2024-01-26 13:39 | NURSING ---
Mental Health Associate Note; Paul is independent in his choice of daily activities and was informed of his rights to have his dog visit w/shoot records in place. He has a smartphone he will use for games and talking w/family, watching tv and reading. Family will visits daily and bring him items he may need. Staff will remind him of weekly activities and respect his right to say no.
--- NOTE | 2024-01-26 13:51 | CON.PCM.RE_ITS ---
Assessment & Plan Assessment/Plan (1) CKD (chronic kidney disease), stage III: QUALIFIERS: Chronic kidney disease stage 3 subtype: stage 3b (GFR 30-44) Qualified Code(s): N18.32 - Chronic kidney disease, stage 3b PLAN: SYLVIA likely due to cardiorenal syndrome At the time of admission to hospital, his creatinine was around 1.7. This appears to be his baseline creatinine. In hospital, with diuresis and lab medications changes, creatinine increased to about 2.6-2.8. Currently about the same value. Blood pressure borderline low. Renal ultrasound without any hydronephrosis. Urine analysis in the past did not show significant proteinuria. Most likely increase in creatinine is related to diuresis and medication changes. For now creatinine stable, can continue same medications. If it worsens, we will hold the diuretics. Volume status currently looks adequate. HPI Consult Data Date of Consult: 01/26/24 HPI Narrative Reason for Consultation: Acute renal failure HPI Narrative: BERNY INFANTE, is a 83 M who is admitted at the hospital recently and is here for rehab. Nephrology on consultation in view of acute on chronic renal failure. He was admitted at [facility] with hip fracture, congestive heart failure. Echocardiogram showed ejection fraction of 25% compared to previous value of 55%. He was started on goal-directed therapy including losartan, Aldactone, Lasix. With diuresis, he has lost about 10 pounds. Currently does not have any lower extremity edema. Creatinine is about 2.8. His admission creatinine was around 1.7. Currently denies any obstructive symptoms. Remote history of kidney stones, last episode was almost 20 years ago. Did not require any procedures recently for kidney stones. Blood pressure is low normal. Denies any dizziness. [facility] Medical History (Updated 01/25/24 @ 21:[address] Brett Goldberg MD) Atrial flutter CKD (chronic kidney disease), stage III Depression Dyspnea Fall Fatigue HFrEF (heart failure with reduced ejection fraction) History of hay fever HTN (hypertension) Hyperkalemia, diminished renal excretion Hyperlipidemia Left bundle branch block (LBBB) Left ventricular diastolic dysfunction LVH (left ventricular hypertrophy) Non-ischemic cardiomyopathy Obstructive sleep apnea Prostate cancer Sick sinus syndrome Home Medications folic acid 1 mg tablet 1 mg PO BID supplement 10/11/21 [History Last Taken 12/15/21] vitamin B complex 1 cap PO BID vitamin 10/11/21 [History Last Taken 12/15/21] rosuvastatin 20 mg tablet 20 mg PO DAILY cholesterol 12/16/21 [History Last Taken 12/15/21] apixaban 2.5 mg tablet (Eliquis) 2.5 mg PO BID blood thinner 03/23/23 [History Last Taken Unknown] duloxetine 30 mg capsule,delayed release 30 mg PO BID DEPRESSION 12/15/23 [History Last Taken Unknown] metoprolol succinate 25 mg tablet,extended release 24 hr 25 mg PO DAILY BP 30 days #30 tabs 12/25/23 [Rx Last Taken Unknown] spironolactone 25 mg tablet 25 mg PO DAILY water pill 30 days #30 tabs 12/25/23 [Rx Last Taken Unknown] fluticasone propionate 50 mcg/actuation nasal spray,suspension 1 spray NASAL BID lungs/asthma 30 days #16 grams 12/27/23 [Rx Last Taken Unknown] pantoprazole 40 mg tablet,delayed release (Protonix) 40 mg PO BID acid reflux 30 days #60 tabs 12/27/23 [Rx Last Taken Unknown] sucralfate 1 gram tablet (Carafate) 1 g PO BID stomach 30 days #60 tabs 12/27/23 [Rx Last Taken Unknown] losartan 25 mg tablet 25 mg PO DAILY BP #30 tabs 01/17/24 [Rx Last Taken Unknown] furosemide 40 mg tablet (Lasix) 40 mg PO DAILY water pill 01/21/24 [History Last Taken Unknown] acetaminophen 500 mg tablet 1,000 mg (2 x 500 mg) PO Q8 pain/inflammati #0 tabs 01/25/24 [Rx Last Taken 01/25/24 05:50] Allergy/AdvReac Type Severity Reaction Status Date / Time Iodinated Contrast Media Allergy Severe Shortness Verified 01/21/24 18:13 of breath iodine Allergy Shortness Verified 01/21/24 18:13 of breath Surgical History (Updated 01/25/24 @ 21:[address] Brett Goldberg MD) History of left heart catheterization (12/17/21) History of prostate surgery History of right hip hemiarthroplasty History of total bilateral knee replacement Hx of appendectomy Social History household members: spouse Smoking Status: Never smoker alcohol intake: current alcohol intake frequency: 0-2 drinks per day Alcohol type: beer, wine and hard liquor details: 1 drink per night substance use type: does not use caffeine: Yes Type: coffee Number of servings: 2 what type of physical activity do you participate in: walking frequency: daily seatbelt use: always Physical Exam Narrative Alert awake oriented x 3 no obvious distress no pallor no icterus no JVD s1s2 no murmurs lungs clear abdomen soft no organomegaly no edema no cyanosis Lab / Micro Data 01/26/24 05:36 01/26/24 05:36 Labs: Laboratory Results - last 24 hr 01/26/24 05:36: WBC 10.2, RBC 4.18 L, Hgb 12.8 L, Hct 39.1 L, MCV 93.5, MCH 30.6, MCHC 32.7, RDW Std Deviation 52.2 H, RDW Coeff of [place] 15.2 H, Plt Count 200, MPV 12.5 H, Immature Gran % (Auto) 0.300, Neut % (Auto) 64.6, Lymph % (Auto) 20.3, [place] % (Auto) 13.1 H, Eos % (Auto) 1.5, Baso % (Auto) 0.2, Absolute Neuts (auto) 6.6, Absolute Lymphs (auto) 2.08, Nucleated RBC % 0, Sodium 135 L, Potassium 4.1, Chloride 105, Carbon Dioxide 22.0, Anion Gap 8, BUN 82 H, Creatinine 2.80 H, Estim Creat Clear Calc 21.29, Est GFR (MDRD) Af Amer 28 L, Est GFR (MDRD) Non-Af 23 L, BUN/Creatinine Ratio 29.3 H, Glucose 100, Calcium 8.8 Imaging Radiology Impression Renal Ultrasound 01/25/24 16:07 IMPRESSION: Right nonobstructive intrarenal calculi. Bilateral renal cortical thinning Electronically Signed: Heber Yun MD at 4:29 EST ,
--- NOTE | 2024-01-26 14:34 | PCM.PN.DRR ---
Documented by User: Evgeny Pereyra 01/26/24 14:50 TCU RX Drug Regimen Review Subjective/Objective Subjective/Objective: Subjective: TCU admission note. 83 year old male with below past medical history hospitalized for right hip fracture, underwent right hip hemiarthroplasty 01/23/[address] Reaves, postoperative course complicated by acute kidney injury, admitted to TCU with debility, here for rehabilitation, strengthening, prior to discharge home with . Objective: Allergies Iodinated Contrast Media Allergy (Severe, Verified 01/21/24 18:13) Shortness of breath iodine Allergy (Verified 01/21/24 18:13) Shortness of breath Current Medications Generic Name Dose Route Start Last Admin Trade Name Freq PRN Reason Stop Dose Admin Acetaminophen 1,000 mg 01/25/24 22:00 01/26/24 14:31 Acetaminophen 500 Mg Tablet PO 1,000 mg Q8 EMPERATRIZ Administration Apixaban 2.5 mg 01/25/24 22:00 01/26/24 08:48 Apixaban 2.5 Mg Tablet (Wch) PO 2.5 mg BID EMPERATRIZ Administration Atorvastatin Calcium 40 mg 01/25/24 22:00 01/25/24 20:07 Atorvastatin Calcium 40 Mg Tablet PO 40 mg QHS EMPERATRIZ Administration Duloxetine HCl 30 mg 01/25/24 22:00 01/26/24 08:39 Duloxetine Hcl 30 Mg Capsule PO 30 mg BID EMPERATRIZ Administration Fluticasone Propionate 1 spray 01/25/24 22:00 01/26/24 08:38 Fluticasone 0.05% 1 Olema Nasal.Sry NASAL 1 spray BID EMPERATRIZ Administration Folic Acid 1 mg 01/25/24 17:00 01/26/24 08:39 Folic Acid 1 Mg Tablet PO 1 mg BIDCM EMPERATRIZ Administration Furosemide 40 mg 01/26/24 10:00 01/26/24 08:39 Furosemide 40 Mg Tablet PO 40 mg DAILY EMPERATRIZ Administration Protocol Losartan Potassium 25 mg 01/26/24 10:00 01/26/24 08:40 Losartan Potassium 25 Mg Tablet PO Not Given DAILY EMPERATRIZ Protocol Metoprolol Succinate 25 mg 01/26/24 10:00 01/26/24 08:46 Metoprolol(Xl)Succ 25 Mg Tablet PO Not Given DAILY [facility] Protocol Multivitamins 1 cap 01/25/24 22:00 01/26/24 08:39 Vitamin B Comp W-C Capsule PO 1 cap BID EMPERATRIZ Administration Nutritional Formula (Lactose Free) 120 ml 01/26/24 17:00 Ensure Plus High Protein 120 Ml Liquid PO 4X/DAY EMPERATRIZ Pantoprazole Sodium 40 mg 01/25/24 22:00 01/26/24 08:39 Pantoprazole Sodium 40 Mg Tablet PO 40 mg BID EMPERATRIZ Administration Polyethylene Glycol 17 gm 01/25/24 21:23 Polyethylene Glycol 3350 17 Gm Packet PO DAILY PRN PRN Constipation Senna/Docusate Sodium 1 tablet 01/25/24 22:00 01/26/24 08:47 Senna/Docusate Sodium 1 Tablet PO Not Given BID EMPERATRIZ Spironolactone 25 mg 01/26/24 10:00 01/26/24 08:39 Spironolactone 25 Mg Tablet PO 25 mg DAILY EMPERATRIZ Administration Protocol Sucralfate 1 gm 01/25/24 22:00 01/26/24 08:39 Sucralfate 1 Gm Tablet PO 1 gm BID EMPERATRIZ Administration Tuberculin PPD 0.1 ml 02/02/24 10:00 Tuberculin,Purif.Prot.Deriv. 50 Tu/Ml Vial ID 02/02/24 10:01 X1 ONE Problem List (Updated 01/25/24 @ 21:[address] Brett Goldberg MD) GERD (gastroesophageal reflux disease) (Acute) Depression (Acute) Hyperlipidemia (Acute) Atrial fibrillation (Acute) Debility (Acute) Closed fracture of right hip (Acute) CKD (chronic kidney disease), stage III (Chronic) HFrEF (heart failure with reduced ejection fraction) (Chronic) Vital Signs Temp Pulse Resp BP Pulse Ox O2 Del Method 97.5 F L 60 18 90/54 L 97 Room Air 01/25/24 15:37 01/26/24 08:46 01/25/24 15:37 01/26/24 08:46 01/25/24 15:37 01/26/24 10:00 Oxygen Delivery Method Room Air Weight: 80.513 kg Body Mass Index (BMI) 24.7 Sodium 135 mmol/L (136-145) L 01/26/24 05:36 Potassium 4.1 mmol/L (3.5-5.1) 01/26/24 05:36 Chloride 105 mmol/L (98-107) 01/26/24 05:36 Carbon Dioxide 22.0 mmol/L (21.0-32.0) 01/26/24 05:36 Anion Gap 8 (5-15) 01/26/24 05:36 BUN 82 mg/dL (7-18) H 01/26/24 05:36 Creatinine 2.80 mg/dL (0.70-1.30) H 01/26/24 05:36 Est GFR (MDRD) Af Amer 28 mL/min (>60) L 01/26/24 05:36 Est GFR (MDRD) Non-Af 23 mL/min (>60) L 01/26/24 05:36 BUN/Creatinine Ratio 29.3 RATIO (10-20) H 01/26/24 05:36 Glucose 100 mg/dL (74-106) 01/26/24 05:36 Assessment/Plan: 1. Pain: acetaminophen 1000 mg PO Q8H. Please continue to monitor pain levels as well as LFTs (AST/ALT = 30/33 U/L on 01/22/24). 2. Bowel: senna/docusate 1 tablet PO BID, polyethylene glycol 17 grams PO daily PRN constipation. The patient has not required any PRN doses of polyethylene glycol so far this admission and the patient's last documented bowel movement was 01/25/24. Please continue to monitor for PRN medication usage, constipation, diarrhea and bowel movements. 3. DVT prophylaxis: apixaban 2.5 mg PO BID. Please continue to monitor for s/s of a DVT such as pain/erythema/edema in an extremity, for s/s of bleeding/excessive bruising, hemoglobin levels (Hgb = 12.8 g/dL on 01/26/24), and platelet count (Plt = 200 K/mm3). 4. HFrEF: metoprolol succinate 25 mg PO daily, losartan 25 mg PO daily, spironolactone 25 mg PO daily, furosemide 40 mg PO daily. Please continue to monitor for s/s of CHF exacerbation such as shortness of breath, chest pressure, edema, heart rates (recent range = 60-85 beats/min), blood pressures (recent range = 65-115/43-75 mmHg), fatigue, renal function (serum creatinine = 2.80 mg/dL with creatinine clearance ~ 21.3 mL/min on 01/26/24), sodium levels (Na = 135 mmol/L on 01/26/24), potassium levels (K = 4.1 mmol/L on 01/26/24), for s/s of dehydration, and calcium levels (Ca = 8.8 mg/dL on 01/26/24). 5. Hyperlipidemia: atorvastatin 40 mg PO QHS. Please continue to monitor lipid levels (cholesterol = 160 mg/dL with LDL 81 mg/dL on 12/24/23) as well as for myalgias. 6. Duodenal ulcer: pantoprazole 40 mg PO BID, sucralfate 1 gram PO BID. Please continue to monitor for s/s of ulcer such as bloody vomit, blood in stool, and GI distress as well as for diarrhea that could indicate clostridium difficile infection, and for s/s of bone resorption such as fractures. 7. Nutrition: ensure plus high protein 120 mL PO 4x/day. Please continue to monitor nutritional status. 8. Leg cramps: vitamin B complex with vitamin C 1 cap PO BID. Please continue to monitor for leg cramps. 9. Folate deficiency: folic acid 1 mg PO BID with meals. Please continue to monitor for s/s of folate deficiency. 10. Allergic rhinitis: fluticasone 1 spray in each nostril BID. Please continue to monitor for s/s of allergic rhinitis, headache, and nose bleeds Assessment/Plan for indications treated with psychotropic medications: 1. Depression: duloxetine 30 mg PO BID. Please see provider note regarding stable chronic long-term therapy GDR not recommended. Please continue to monitor for s/s of depression, for SI, for s/s of serotonin syndrome, LFTs (AST/ALT = 30/33 U/L on 01/22/24), and for nausea/vomiting. Medical chart and medication regimen reviewed. The following medication irregularities or issues were identified: NA Date Date of Note:: 01/26/24 Documented by User: Dr. Brett Goldberg MD 01/26/24 14:57 TCU RX Drug Regimen Review Provider Comments Provider responsibility Provider Comments to Recommendations by Pharmacy: Agree
[2024-01-26 15:30] VITALS: BP 89/77; PULSE 85; RESP 18; TEMP 35.8; O2SAT 96
[2024-01-26] MEDS: Atorvastatin Calcium 40 MG Tablet PO (22:20)
[2024-01-27] MEDS: Acetaminophen 500 MG Tablet 1000 MG PO ×3 (06:06→20:00)
[2024-01-27] MEDS: Ensure Plus High Protein 120 ML LIQUID PO ×4 (06:06→20:01)
[2024-01-27 06:59] LABS: Anion Gap 9 (5-15); BUN 78 mg/dL (7-18); Calcium,Total 8.7 mg/dL (8.5-10.1); Chloride 104 mmol/L (98-107); Creatinine, Serum 2.44 mg/dL (0.70-1.30); EST Glomerular Filtration Rate 27 mL/min (>60); Est Glom Filt Rate - Afr Amer 33 mL/min (>60); Estimated Creatinine Clearance 24.43 ml/min; Glucose 120 mg/dL (74-106); Sodium Level 136 mmol/L (136-145)
[2024-01-27 11:07] VITALS: BP 108/60; PULSE 78
[2024-01-27] MEDS: APIXABAN 2.5 MG TABLET (WCH) PO ×2 (11:07→20:00)
[2024-01-27] MEDS: Senna/Docusate Sodium 1 Tablet PO ×2 (11:07→20:01)
[2024-01-27] MEDS: Fluticasone 0.05% 1 SPRAY NASAL.SRY NASAL ×2 (11:07→20:02)
[2024-01-27] MEDS: Folic Acid 1 MG Tablet PO ×2 (11:07→17:21)
[2024-01-27] MEDS: Pantoprazole Sodium 40 MG Tablet PO ×2 (11:07→20:00)
[2024-01-27] MEDS: Metoprolol(XL)Succ 25 MG Tablet PO (11:07)
[2024-01-27] MEDS: Sucralfate 1 GM Tablet PO ×2 (11:07→20:01)
[2024-01-27] MEDS: DULoxetine Hcl 30 MG Capsule PO ×2 (11:07→20:01)
[2024-01-27] MEDS: Vitamin B Comp W-C Capsule 1 CAP PO ×2 (11:07→20:01)
[2024-01-27 15:48] VITALS: BP 100/63; PULSE 76; RESP 16; TEMP 36.2; O2SAT 98
[2024-01-27] MEDS: Atorvastatin Calcium 40 MG Tablet PO (20:01)
[2024-01-27 20:14] VITALS: O2SAT 97
[2024-01-28] MEDS: Ensure Plus High Protein 120 ML LIQUID PO ×3 (05:12→17:33)
[2024-01-28] MEDS: Acetaminophen 500 MG Tablet 1000 MG PO ×3 (05:13→21:20)
[2024-01-28 05:43] LABS: Anion Gap 7 (5-15); BUN 72 mg/dL (7-18); BUN/Creat Ratio 38.1 RATIO (10-20); Calcium,Total 8.2 mg/dL (8.5-10.1); Chloride 109 mmol/L (98-107); Creatinine, Serum 1.89 mg/dL (0.70-1.30); EST Glomerular Filtration Rate 36 mL/min (>60); Est Glom Filt Rate - Afr Amer 44 mL/min (>60); Estimated Creatinine Clearance 31.54 ml/min; Glucose 106 mg/dL (74-106); Potassium 4.2 mmol/L (3.5-5.1); Sodium Level 137 mmol/L (136-145)
[2024-01-28 10:16] VITALS: BP 116/68; PULSE 75
[2024-01-28] MEDS: Pantoprazole Sodium 40 MG Tablet PO ×2 (10:16→21:20)
[2024-01-28] MEDS: Folic Acid 1 MG Tablet PO ×2 (10:16→17:33)
[2024-01-28] MEDS: Sucralfate 1 GM Tablet PO ×2 (10:16→21:20)
[2024-01-28] MEDS: APIXABAN 2.5 MG TABLET (WCH) PO ×2 (10:16→21:20)
[2024-01-28] MEDS: Metoprolol(XL)Succ 25 MG Tablet PO (10:16)
[2024-01-28] MEDS: Senna/Docusate Sodium 1 Tablet PO ×2 (10:16→21:20)
[2024-01-28] MEDS: Vitamin B Comp W-C Capsule 1 CAP PO ×2 (10:16→21:21)
[2024-01-28] MEDS: DULoxetine Hcl 30 MG Capsule PO ×2 (10:16→21:20)
[2024-01-28] MEDS: Fluticasone 0.05% 1 SPRAY NASAL.SRY NASAL ×2 (10:16→21:22)
--- NOTE | 2024-01-28 13:47 | NURSING ---
Pt choked on Omlete this AM and vomited. Dr. Goldberg updated N.O. for Chest X-ray on 01/29/24 and speech consult entered.
[2024-01-28 15:51] VITALS: BP 97/55; PULSE 72; RESP 16; TEMP 36.6; O2SAT 95
[2024-01-28] MEDS: Atorvastatin Calcium 40 MG Tablet PO (21:21)
[2024-01-28] MEDS: Ensure Clear 120 ML Liquid PO (21:21)
[2024-01-28] MEDS: Zolpidem Tartrate 5 MG Tablet PO (21:24)
[2024-01-29] MEDS: Ensure Clear 120 ML Liquid PO ×4 (05:41→22:00)
[2024-01-29] MEDS: Acetaminophen 500 MG Tablet 1000 MG PO ×2 (05:42→22:03)
[2024-01-29 06:00] VITALS: BMI 23.9
[2024-01-29 06:20] LABS: Anion Gap 5 (5-15); BUN 58 mg/dL (7-18); BUN/Creat Ratio 34.3 RATIO (10-20); Calcium,Total 8.4 mg/dL (8.5-10.1); Chloride 109 mmol/L (98-107); Creatinine, Serum 1.69 mg/dL (0.70-1.30); EST Glomerular Filtration Rate 41 mL/min (>60); Est Glom Filt Rate - Afr Amer 50 mL/min (>60); Estimated Creatinine Clearance 35.27 ml/min; Glucose 106 mg/dL (74-106); Potassium 4.3 mmol/L (3.5-5.1); Sodium Level 137 mmol/L (136-145)
--- NOTE | 2024-01-29 08:00 | RAD_ITS ---
STUDY: X-RAY CHEST REASON FOR EXAM: Male, 83 years old. Possible Aspiration TECHNIQUE: PA and lateral views of the chest. COMPARISON: Comparison is made with prior study January 21, 2024. FINDINGS: Residual blunting of the right costophrenic angle. Mild degree of atelectasis and/or infiltrate in the posterior medial segment of the right lower lobe although there has been a marked degree of improvement as compared to prior study. There is mild cardiac enlargement. A left-sided dual-chamber pacemaker is seen. Normal mediastinum and sourav. Normal visualized pulmonary arteries. There is atherosclerotic calcification of the aortic arch with tortuosity. There are diffuse degenerative changes of the visualized thoracic spine. Normal visualized ribs, clavicles, and shoulders. There is no demonstrated abnormality of the visualized soft tissue structures of the upper abdomen. RAD/Chest PA and Lateral IMPRESSION: Interval improvement in the right lower lobe infiltrate and small effusion with mild residual changes persisting. Electronically Signed: Konstantin Gonsales MD at 14:11 EDT ,
[2024-01-29] MEDS: Folic Acid 1 MG Tablet PO ×2 (08:58→17:42)
[2024-01-29] MEDS: Vitamin B Comp W-C Capsule 1 CAP PO ×2 (08:58→22:01)
[2024-01-29] MEDS: Sucralfate 1 GM Tablet PO ×2 (08:58→22:01)
[2024-01-29 08:59] VITALS: BP 99/60; PULSE 70
[2024-01-29] MEDS: APIXABAN 2.5 MG TABLET (WCH) PO ×2 (08:59→22:02)
[2024-01-29] MEDS: DULoxetine Hcl 30 MG Capsule PO ×2 (08:59→22:02)
[2024-01-29] MEDS: Metoprolol(XL)Succ 25 MG Tablet PO (08:59)
[2024-01-29] MEDS: Pantoprazole Sodium 40 MG Tablet PO ×2 (08:59→22:00)
[2024-01-29] MEDS: Fluticasone 0.05% 1 SPRAY NASAL.SRY NASAL ×2 (09:02→21:59)
[2024-01-29] MEDS: Losartan Potassium 25 MG Tablet PO (12:02)
[2024-01-29] MEDS: Spironolactone 25 MG Tablet PO (12:02)
[2024-01-29] MEDS: Furosemide 40 MG Tablet PO (12:03)
[2024-01-29] MEDS: Menthol/Lanolin/Calamine/Znox 113 GM Tube 1 APPLIC TOPICAL ×2 (12:04→22:03)
[2024-01-29] MEDS: traMADol 50 MG Tablet PO ×2 (14:21→22:05)
[2024-01-29 14:51] VITALS: BP 107/75; PULSE 76; RESP 16; TEMP 36.5; O2SAT 100
--- NOTE | 2024-01-29 17:19 | CASEMGMT ---
Social Work SW met with patient to complete initial assessment. Introduced self and role. Verified/updated contacts. Pt confirmed code status as DNR-CCA, no intubation. SW requested pt provide his copies of advanced directives as pt's 's AD are scanned in pt's echart. arrived at the later of assessment and agreed to provide copies. SW educated to [facility] insurance with NRD 02/05 and continued stay is not guaranteed with each review. Pt's goal is to return home with . However, cannot provide physical assistance at home. Currently, pt is x1-2 assist with transfers and ADLs. Noted the goal for home from IDT is CGA x1 assist, including toileting tasks, as that is difficult to schedule assistance. SW broached topic of alternative DC plan. Pt and agree they have the means to hire assistance in the home, and agreed to goals of care for pt to return home. SW provided list of nonskilled HHC. SW will continue to follow for DC planning. Luiza Garcia, GRADUATE STUDIES [employer] PRODUCT SPECIALIST
[2024-01-29] MEDS: Zolpidem Tartrate 5 MG Tablet PO (21:58)
[2024-01-29] MEDS: Atorvastatin Calcium 40 MG Tablet PO (22:00)
[2024-01-29] MEDS: Senna/Docusate Sodium 1 Tablet PO (22:03)
[2024-01-29 22:23] VITALS: O2SAT 96
[2024-01-30] MEDS: Acetaminophen 500 MG Tablet 1000 MG PO ×3 (05:22→21:43)
[2024-01-30] MEDS: Ensure Clear 120 ML Liquid PO ×4 (05:22→21:43)
[2024-01-30 06:00] VITALS: BMI 23.9
[2024-01-30 06:35] LABS: Anion Gap 6 (5-15); BUN 51 mg/dL (7-18); BUN/Creat Ratio 32.3 RATIO (10-20); Calcium,Total 8.2 mg/dL (8.5-10.1); Chloride 109 mmol/L (98-107); Creatinine, Serum 1.58 mg/dL (0.70-1.30); EST Glomerular Filtration Rate 45 mL/min (>60); Est Glom Filt Rate - Afr Amer 54 mL/min (>60); Estimated Creatinine Clearance 37.73 ml/min; Glucose 128 mg/dL (74-106); Sodium Level 137 mmol/L (136-145)
[2024-01-30 08:36] VITALS: BP 103/65; PULSE 72; RESP 14; TEMP 35.9; O2SAT 100
[2024-01-30] MEDS: Folic Acid 1 MG Tablet PO ×2 (08:45→17:25)
[2024-01-30] MEDS: Menthol/Lanolin/Calamine/Znox 113 GM Tube 1 APPLIC TOPICAL ×2 (08:46→21:47)
[2024-01-30] MEDS: Spironolactone 25 MG Tablet PO (08:46)
[2024-01-30] MEDS: Vitamin B Comp W-C Capsule 1 CAP PO ×2 (08:46→21:43)
[2024-01-30] MEDS: Sucralfate 1 GM Tablet PO ×2 (08:47→21:42)
[2024-01-30] MEDS: Losartan Potassium 25 MG Tablet PO (08:47)
[2024-01-30] MEDS: DULoxetine Hcl 30 MG Capsule PO ×2 (08:48→21:42)
[2024-01-30] MEDS: APIXABAN 2.5 MG TABLET (WCH) PO ×2 (08:48→21:43)
[2024-01-30] MEDS: Pantoprazole Sodium 40 MG Tablet PO ×2 (08:49→21:43)
[2024-01-30] MEDS: Furosemide 40 MG Tablet PO (08:49)
[2024-01-30] MEDS: Fluticasone 0.05% 1 SPRAY NASAL.SRY NASAL ×2 (08:49→21:43)
[2024-01-30 08:50] VITALS: BP 103/65; PULSE 72
[2024-01-30] MEDS: Metoprolol(XL)Succ 25 MG Tablet PO (08:50)
[2024-01-30] MEDS: Senna/Docusate Sodium 1 Tablet PO ×2 (08:50→21:43)
[2024-01-30 10:00] VITALS: PULSE 72; RESP 14; O2SAT 100
[2024-01-30] MEDS: traMADol 50 MG Tablet PO (11:03)
[2024-01-30] MEDS: Zolpidem Tartrate 5 MG Tablet PO (21:42)
[2024-01-30] MEDS: Atorvastatin Calcium 40 MG Tablet PO (21:43)
[2024-01-31 06:00] VITALS: BMI 23.3
[2024-01-31] MEDS: Ensure Clear 120 ML Liquid PO ×4 (06:19→21:31)
[2024-01-31] MEDS: Acetaminophen 500 MG Tablet 1000 MG PO ×3 (06:19→21:31)
[2024-01-31 06:22] LABS: Anion Gap 7 (5-15); BUN 52 mg/dL (7-18); BUN/Creat Ratio 33.3 RATIO (10-20); Calcium,Total 8.1 mg/dL (8.5-10.1); Chloride 109 mmol/L (98-107); Creatinine, Serum 1.56 mg/dL (0.70-1.30); EST Glomerular Filtration Rate 45 mL/min (>60); Est Glom Filt Rate - Afr Amer 55 mL/min (>60); Estimated Creatinine Clearance 38.21 ml/min; Glucose 98 mg/dL (74-106); Sodium Level 137 mmol/L (136-145)
[2024-01-31 09:15] VITALS: BP 88/45; PULSE 68; RESP 20; TEMP 36.3; O2SAT 97
[2024-01-31] MEDS: Vitamin B Comp W-C Capsule 1 CAP PO ×2 (10:22→21:31)
[2024-01-31] MEDS: Folic Acid 1 MG Tablet PO ×2 (10:22→17:48)
[2024-01-31] MEDS: DULoxetine Hcl 30 MG Capsule PO ×2 (10:23→21:31)
[2024-01-31] MEDS: Menthol/Lanolin/Calamine/Znox 113 GM Tube 1 APPLIC TOPICAL ×2 (10:23→21:33)
[2024-01-31] MEDS: Sucralfate 1 GM Tablet PO ×2 (10:23→21:31)
[2024-01-31] MEDS: APIXABAN 2.5 MG TABLET (WCH) PO ×2 (10:24→21:32)
[2024-01-31] MEDS: Fluticasone 0.05% 1 SPRAY NASAL.SRY NASAL ×2 (10:24→21:32)
[2024-01-31] MEDS: Pantoprazole Sodium 40 MG Tablet PO ×2 (10:25→21:34)
[2024-01-31] MEDS: Senna/Docusate Sodium 1 Tablet PO ×2 (10:26→21:31)
--- NOTE | 2024-01-31 13:48 | CASEMGMT ---
Social Work IDT met with patient and for care plan meeting. Discussed patient's progress in PT/OT/ST/SN. Educated to [facility] insurance with NRD 02/05 and continued stay is not guaranteed with each review. SW revisited conversation with likely needing additional assistance at home and referenced contacting the [facility] agencies this worker provided to prior. Pt is inconsistent with his needs and currently recommending 24/7 care for safety. Pt and both understanding to pt's needs and agreed to contact agencies. SW will continue to follow for DC planning. MANAN NgW
--- NOTE | 2024-01-31 14:22 | NURSING ---
Addendum entered by Melina Mcdaniel 01/31/24 16:36: Dr. Reaves office calls back and report Dr. Reaves will be in to see patient 02/08/24 and take loren out. Abril made aware. Original Note: unable to transport to appt 02/05/24. RN called physicians transport, they are unable to provide transport Monday. Called and spoke with Dr. Reaves's staff, they will ask him if he'd prefer to move appt and have patient come in office or if he'd prefer to see patient on TCU.
[2024-01-31 20:31] VITALS: PULSE 69; RESP 16; O2SAT 98
[2024-01-31] MEDS: Atorvastatin Calcium 40 MG Tablet PO (21:32)
[2024-01-31] MEDS: Zolpidem Tartrate 5 MG Tablet PO (21:37)
[2024-02-01] MEDS: Ensure Clear 120 ML Liquid PO ×4 (05:56→22:05)
[2024-02-01] MEDS: Acetaminophen 500 MG Tablet 1000 MG PO ×2 (05:56→22:04)
--- NOTE | 2024-02-01 08:34 | NURSING ---
Candy Roller Note; MDS for 02/01/2024 Complete
[2024-02-01] MEDS: Fluticasone 0.05% 1 SPRAY NASAL.SRY NASAL ×2 (09:36→22:05)
[2024-02-01] MEDS: Pantoprazole Sodium 40 MG Tablet PO ×2 (09:37→22:05)
[2024-02-01] MEDS: DULoxetine Hcl 30 MG Capsule PO ×2 (09:37→22:05)
[2024-02-01] MEDS: Vitamin B Comp W-C Capsule 1 CAP PO ×2 (09:37→22:05)
[2024-02-01] MEDS: Spironolactone 25 MG Tablet PO (09:38)
[2024-02-01] MEDS: Folic Acid 1 MG Tablet PO ×2 (09:38→18:13)
[2024-02-01] MEDS: APIXABAN 2.5 MG TABLET (WCH) PO ×2 (09:38→22:05)
[2024-02-01] MEDS: Menthol/Lanolin/Calamine/Znox 113 GM Tube 1 APPLIC TOPICAL ×2 (09:42→22:06)
[2024-02-01] MEDS: Sucralfate 1 GM Tablet PO ×2 (11:10→22:05)
--- NOTE | 2024-02-01 11:18 | CASEMGMT ---
Social Work BIMS (11/03) and PHQ-2 () completed for MDS assessment. Luiza Garcia MSW RESIN MIXER
[2024-02-01 16:00] VITALS: TEMP 36.7
[2024-02-01] MEDS: Zolpidem Tartrate 5 MG Tablet PO ×2 (22:01→23:29)
[2024-02-01] MEDS: Senna/Docusate Sodium 1 Tablet PO (22:04)
[2024-02-01] MEDS: Atorvastatin Calcium 40 MG Tablet PO (22:05)
--- NOTE | 2024-02-01 23:26 | CPS ---
Pt. wearing his home unit at this time.
[2024-02-02] MEDS: traMADol 50 MG Tablet PO (01:40)
[2024-02-02] MEDS: Acetaminophen 500 MG Tablet 1000 MG PO ×2 (05:49→21:41)
[2024-02-02] MEDS: Ensure Clear 120 ML Liquid PO ×3 (05:50→21:41)
[2024-02-02 06:00] VITALS: BMI 23.6
[2024-02-02] MEDS: Spironolactone 25 MG Tablet PO (08:12)
[2024-02-02] MEDS: Folic Acid 1 MG Tablet PO ×2 (08:12→17:59)
[2024-02-02] MEDS: Vitamin B Comp W-C Capsule 1 CAP PO ×2 (08:12→21:41)
[2024-02-02] MEDS: APIXABAN 2.5 MG TABLET (WCH) PO ×2 (08:14→21:41)
[2024-02-02] MEDS: Senna/Docusate Sodium 1 Tablet PO ×2 (08:14→21:42)
[2024-02-02] MEDS: Fluticasone 0.05% 1 SPRAY NASAL.SRY NASAL ×2 (08:14→21:43)
[2024-02-02] MEDS: DULoxetine Hcl 30 MG Capsule PO ×2 (08:14→21:42)
[2024-02-02] MEDS: Pantoprazole Sodium 40 MG Tablet PO ×2 (08:14→21:41)
[2024-02-02] MEDS: Menthol/Lanolin/Calamine/Znox 113 GM Tube 1 APPLIC TOPICAL ×2 (08:18→21:42)
[2024-02-02 08:34] LABS: Absolute Neutrophil Count 8.7 X10^3/uL (2.0-7.7); Basophil# 0.09 X10^3/uL; Basophil% 0.7 % (0-1); Eosinophil# 0.45 X10^3/uL; Eosinophils% 3.3 % (0-5); Hematocrit 40.4 % (40-54); Hemoglobin 13.1 g/dL (13.0-16.5); Lymphocyte % 22.5 % (19-41); Mean Corp Hgb Conc 32.4 g/dL (32-36); Mean Corpuscular Hgb 30.1 pg (27.0-32.0); Mean Corpuscular Volume 92.9 fL (80-94); Mean Platelet Vol. 10.4 fl (6.2-12.0); Monocyte# 1.35 X10^3/uL; Monocyte% 9.8 % (0-10); NRBC Flagged by Analyzer 0 % (0-5); Neutrophil % 63.2 % (47-70); Platelet Count 447 K/mm3 (150-450); RBC Distribution Width CV 15.2 % (11.6-14.6); Red Blood Count 4.35 M/mm3 (4.6-6.2); White Blood Count 13.8 K/mm3 (4.4-11.0)
--- NOTE | 2024-02-02 08:38 | CASEMGMT ---
Addendum entered by Luiza Garcia 02/05/24 12:15: Pt did not sign on for palliative services. Original Note: Social Work [facility] to meet with pt and this date. Will notify palliative with DC date. Luiza Garcia NEUROUROLOGIST CNC WOOD LATHE OPERATOR
[2024-02-02 08:46] LABS: Anion Gap 2 (5-15); BUN 40 mg/dL (7-18); BUN/Creat Ratio 26.7 RATIO (10-20); Calcium,Total 8.7 mg/dL (8.5-10.1); Chloride 111 mmol/L (98-107); EST Glomerular Filtration Rate 47 mL/min (>60); Est Glom Filt Rate - Afr Amer 57 mL/min (>60); Estimated Creatinine Clearance 39.74 ml/min; Glucose 109 mg/dL (74-106); Sodium Level 138 mmol/L (136-145)
[2024-02-02] MEDS: Tuberculin,Purif.prot.deriv. 50 TU/ML Vial 0.1 ML ID (11:24)
[2024-02-02] MEDS: Sucralfate 1 GM Tablet PO ×2 (11:24→21:42)
[2024-02-02 16:00] VITALS: BP 115/66; PULSE 90; RESP 16; TEMP 36.5; O2SAT 100
[2024-02-02] MEDS: Zolpidem Tartrate 5 MG Tablet PO ×2 (21:41→23:24)
[2024-02-02] MEDS: Atorvastatin Calcium 40 MG Tablet PO (21:41)
[2024-02-03] MEDS: Ensure Clear 120 ML Liquid PO ×4 (05:39→21:42)
[2024-02-03] MEDS: Acetaminophen 500 MG Tablet 1000 MG PO ×3 (05:40→21:41)
[2024-02-03 06:00] VITALS: BMI 23.6
[2024-02-03 09:17] VITALS: BP 110/61; PULSE 88; RESP 17; TEMP 36.2; O2SAT 100
[2024-02-03] MEDS: Spironolactone 25 MG Tablet PO (09:19)
[2024-02-03] MEDS: Folic Acid 1 MG Tablet PO ×2 (09:19→16:53)
[2024-02-03] MEDS: Vitamin B Comp W-C Capsule 1 CAP PO ×2 (09:19→21:42)
[2024-02-03] MEDS: APIXABAN 2.5 MG TABLET (WCH) PO ×2 (09:20→21:42)
[2024-02-03] MEDS: Sucralfate 1 GM Tablet PO ×2 (09:20→21:42)
[2024-02-03] MEDS: Fluticasone 0.05% 1 SPRAY NASAL.SRY NASAL ×2 (09:20→21:42)
[2024-02-03] MEDS: DULoxetine Hcl 30 MG Capsule PO ×2 (09:20→21:41)
[2024-02-03] MEDS: Pantoprazole Sodium 40 MG Tablet PO ×2 (09:21→21:42)
[2024-02-03] MEDS: BENZOCAINE/MENTHOL 1 LOZENGE MUCOUS MEM (09:24)
--- NOTE | 2024-02-03 19:14 | NURSING ---
Pt's states she received a voicemail notification that pt's follow-up appt with Dr Reaves on 02/04 was cancelled, and that Dr. Reaves will visit pt on-unit on 02/07. No notes/information on our calendars. Will need to clarify with community service manager/office.
[2024-02-03 20:15] VITALS: PULSE 94; RESP 16; O2SAT 96
[2024-02-03] MEDS: Atorvastatin Calcium 40 MG Tablet PO (21:42)
[2024-02-03] MEDS: Zolpidem Tartrate 5 MG Tablet PO ×2 (21:43→23:10)
[2024-02-04] MEDS: Ensure Clear 120 ML Liquid PO ×4 (05:42→21:26)
[2024-02-04] MEDS: Acetaminophen 500 MG Tablet 1000 MG PO ×3 (05:42→21:26)
[2024-02-04 05:46] VITALS: PULSE 108; RESP 14; O2SAT 96
[2024-02-04 06:00] VITALS: BMI 23.7
[2024-02-04 07:56] LABS: Absolute Lymphocyte Count 2.64 X10^3/uL (0.83-4.51); Basophil% 0.8 % (0-1); Hematocrit 35.3 % (40-54); Hemoglobin 11.7 g/dL (13.0-16.5); Lymphocyte # 2.64 X10^3/ul (0.83-4.51); Lymphocyte % 21.3 % (19-41); Mean Corp Hgb Conc 33.1 g/dL (32-36); Mean Corpuscular Hgb 30.8 pg (27.0-32.0); Mean Corpuscular Volume 92.9 fL (80-94); Mean Platelet Vol. 9.9 fl (6.2-12.0); Monocyte% 8.9 % (0-10); NRBC Flagged by Analyzer 0 % (0-5); Neutrophil % 64.7 % (47-70); Platelet Count 436 K/mm3 (150-450); RBC Distribution Width CV 15.1 % (11.6-14.6); RBC Distribution Width SD 51.6 fl (35.1-43.9); White Blood Count 12.4 K/mm3 (4.4-11.0)
[2024-02-04] MEDS: Folic Acid 1 MG Tablet PO ×2 (08:33→17:28)
[2024-02-04] MEDS: Spironolactone 25 MG Tablet PO (08:34)
[2024-02-04] MEDS: Vitamin B Comp W-C Capsule 1 CAP PO ×2 (08:35→21:27)
[2024-02-04] MEDS: Sucralfate 1 GM Tablet PO ×2 (08:37→21:27)
[2024-02-04] MEDS: APIXABAN 2.5 MG TABLET (WCH) PO ×2 (08:38→21:27)
[2024-02-04] MEDS: DULoxetine Hcl 30 MG Capsule PO ×2 (08:38→21:27)
[2024-02-04] MEDS: Fluticasone 0.05% 1 SPRAY NASAL.SRY NASAL ×2 (08:39→21:26)
[2024-02-04] MEDS: Senna/Docusate Sodium 1 Tablet PO ×2 (08:40→21:26)
[2024-02-04] MEDS: Pantoprazole Sodium 40 MG Tablet PO ×2 (08:40→21:26)
[2024-02-04 08:47] VITALS: BP 101/65; PULSE 91; RESP 16; TEMP 36.6; O2SAT 97
--- NOTE | 2024-02-04 15:43 | NURSING ---
Patient stated that he spoke with his and per , Dr. Reaves will be coming to see patient on the unit on 02/07 to remove loren. Nursing communication left for nursing to call Dr. Reaves's office on Monday to confirm.
[2024-02-04] MEDS: Atorvastatin Calcium 40 MG Tablet PO (21:26)
[2024-02-04] MEDS: Zolpidem Tartrate 5 MG Tablet PO ×2 (21:27→23:10)
[2024-02-04] MEDS: Menthol/Lanolin/Calamine/Znox 113 GM Tube 1 APPLIC TOPICAL (21:33)
[2024-02-05] MEDS: Acetaminophen 500 MG Tablet 1000 MG PO ×3 (05:51→21:40)
[2024-02-05] MEDS: Ensure Clear 120 ML Liquid PO ×4 (05:51→21:43)
[2024-02-05 06:00] VITALS: BMI 23.7
[2024-02-05] MEDS: Folic Acid 1 MG Tablet PO ×2 (08:21→16:16)
[2024-02-05] MEDS: Spironolactone 25 MG Tablet PO (08:21)
[2024-02-05] MEDS: Vitamin B Comp W-C Capsule 1 CAP PO ×2 (08:22→21:40)
[2024-02-05] MEDS: Menthol/Lanolin/Calamine/Znox 113 GM Tube 1 APPLIC TOPICAL ×2 (08:22→21:41)
[2024-02-05] MEDS: Sucralfate 1 GM Tablet PO ×2 (08:23→21:40)
[2024-02-05] MEDS: APIXABAN 2.5 MG TABLET (WCH) PO ×2 (08:24→21:40)
[2024-02-05] MEDS: DULoxetine Hcl 30 MG Capsule PO ×2 (08:24→21:40)
[2024-02-05] MEDS: Fluticasone 0.05% 1 SPRAY NASAL.SRY NASAL ×2 (08:24→21:41)
[2024-02-05] MEDS: Senna/Docusate Sodium 1 Tablet PO ×2 (08:25→21:40)
[2024-02-05] MEDS: Pantoprazole Sodium 40 MG Tablet PO ×2 (08:25→21:40)
[2024-02-05 08:31] VITALS: BP 108/64; PULSE 103; RESP 18; TEMP 36.5; O2SAT 98
[2024-02-05 13:47] VITALS: BP 95/66; PULSE 106; RESP 18; TEMP 35.9; O2SAT 98
[2024-02-05] MEDS: Zolpidem Tartrate 5 MG Tablet PO ×2 (21:38→23:10)
[2024-02-05] MEDS: Atorvastatin Calcium 40 MG Tablet PO (21:40)
[2024-02-05 22:00] VITALS: PULSE 105; RESP 16; O2SAT 97
[2024-02-06] MEDS: Ensure Clear 120 ML Liquid PO ×3 (05:41→17:23)
[2024-02-06] MEDS: Acetaminophen 500 MG Tablet 1000 MG PO ×3 (05:42→22:17)
[2024-02-06 05:48] VITALS: PULSE 85; RESP 16; O2SAT 99
[2024-02-06 06:00] VITALS: BMI 23.1
[2024-02-06 06:04] LABS: Absolute Lymphocyte Count 2.84 X10^3/uL (0.83-4.51); Absolute Neutrophil Count 7.6 X10^3/uL (2.0-7.7); Basophil# 0.08 X10^3/uL; Basophil% 0.7 % (0-1); Eosinophils% 3.3 % (0-5); Hematocrit 38.1 % (40-54); Hemoglobin 12.3 g/dL (13.0-16.5); Lymphocyte # 2.84 X10^3/ul (0.83-4.51); Lymphocyte % 23.2 % (19-41); Mean Corp Hgb Conc 32.3 g/dL (32-36); Mean Corpuscular Hgb 29.7 pg (27.0-32.0); Monocyte# 1.28 X10^3/uL; Monocyte% 10.5 % (0-10); NRBC Flagged by Analyzer 0 % (0-5); Neutrophil # 7.59 X10^3/uL (2.7-7.7); Platelet Count 510 K/mm3 (150-450); RBC Distribution Width CV 15.4 % (11.6-14.6); Red Blood Count 4.14 M/mm3 (4.6-6.2); White Blood Count 12.2 K/mm3 (4.4-11.0)
--- NOTE | 2024-02-06 08:20 | MDS.RN ---
Information for the mds was obtained from review of the clinical record, interview of resident, staff, and direct observation of resident's care.
[2024-02-06] MEDS: Pantoprazole Sodium 40 MG Tablet PO ×2 (08:22→22:18)
[2024-02-06] MEDS: Fluticasone 0.05% 1 SPRAY NASAL.SRY NASAL ×2 (08:23→22:20)
[2024-02-06] MEDS: Senna/Docusate Sodium 1 Tablet PO ×2 (08:23→22:18)
[2024-02-06] MEDS: Sucralfate 1 GM Tablet PO ×2 (08:24→22:18)
[2024-02-06] MEDS: Folic Acid 1 MG Tablet PO ×2 (08:24→17:23)
[2024-02-06] MEDS: APIXABAN 2.5 MG TABLET (WCH) PO ×2 (08:24→22:17)
[2024-02-06] MEDS: DULoxetine Hcl 30 MG Capsule PO ×2 (08:24→22:19)
[2024-02-06] MEDS: Vitamin B Comp W-C Capsule 1 CAP PO ×2 (08:24→22:19)
[2024-02-06] MEDS: Menthol/Lanolin/Calamine/Znox 113 GM Tube 1 APPLIC TOPICAL ×2 (08:24→22:20)
[2024-02-06] MEDS: Spironolactone 25 MG Tablet PO (08:27)
[2024-02-06 10:05] VITALS: BP 93/60; PULSE 69; RESP 16; TEMP 36.2; O2SAT 98
[2024-02-06] MEDS: COVID VAC 23-24(12UP)(ANDU)/PF 50 MCG/0.5 ML SYRINGE IM (11:19)
--- NOTE | 2024-02-06 15:32 | CASEMGMT ---
Addendum entered by Luiza Garcia 02/08/24 17:34: [facility] does not have beds. [facility] can accept. SW left with to update and CC is FOC. Will await outcome from insurance. Addendum entered by Luiza Garcia 02/07/24 16:20: Received call from requesting referrals to [facility] and [facility]. SW placed referrals via CarePort. Will await outcome. Original Note: Social Work SW phoned to discuss DC recommendations from IDT. Pt still needing assistance with ADLs and remains inconsistent with LOC. Recommending either aides in the home or SNF transfer. understanding and agreeable to recommendations. SW also noted pt's inability to follow precautions and concerns with short term memory, agreed and stated pt was struggling with memory prior. SW educated to [facility] [place] being completed tomorrow for further information. appreciative. expressed concern with pt discharging home and would like to pursue SNF. SW educated to OOP for room and board and part B therapies through insurance. expressed understanding. SW offered to provide SNF list with quality and resource data via CarePort Guide. denied stating she is familiar with the area SNFs. agreed to contact this worker tomorrow with SNF choices to place referrals. SW will continue to follow. MANAN NgW
[2024-02-06] MEDS: Atorvastatin Calcium 40 MG Tablet PO (22:19)
[2024-02-06] MEDS: Zolpidem Tartrate 5 MG Tablet PO ×2 (22:23→23:17)
[2024-02-07 06:00] VITALS: BMI 22.8
[2024-02-07] MEDS: Acetaminophen 500 MG Tablet 1000 MG PO ×2 (06:05→21:24)
[2024-02-07] MEDS: Spironolactone 25 MG Tablet PO (08:44)
[2024-02-07] MEDS: Vitamin B Comp W-C Capsule 1 CAP PO ×2 (08:44→21:24)
[2024-02-07] MEDS: Folic Acid 1 MG Tablet PO ×2 (08:44→17:52)
[2024-02-07] MEDS: DULoxetine Hcl 30 MG Capsule PO ×2 (08:45→21:24)
[2024-02-07] MEDS: Sucralfate 1 GM Tablet PO ×2 (08:45→21:24)
[2024-02-07] MEDS: APIXABAN 2.5 MG TABLET (WCH) PO ×2 (08:46→21:25)
[2024-02-07] MEDS: Fluticasone 0.05% 1 SPRAY NASAL.SRY NASAL ×2 (08:46→21:23)
[2024-02-07] MEDS: Pantoprazole Sodium 40 MG Tablet PO ×2 (08:47→21:24)
[2024-02-07] MEDS: Senna/Docusate Sodium 1 Tablet PO (08:47)
[2024-02-07] MEDS: Menthol/Lanolin/Calamine/Znox 113 GM Tube 1 APPLIC TOPICAL ×2 (08:52→21:21)
[2024-02-07] MEDS: Ensure Clear 120 ML Liquid PO ×3 (13:34→21:20)
[2024-02-07 15:06] VITALS: BP 99/61; PULSE 121; RESP 16; TEMP 36.4; O2SAT 98
[2024-02-07 19:25] VITALS: RESP 18
[2024-02-07] MEDS: Zolpidem Tartrate 5 MG Tablet PO (21:20)
[2024-02-07] MEDS: Atorvastatin Calcium 40 MG Tablet PO (21:24)
[2024-02-07 21:27] VITALS: BP 101/67; PULSE 90
[2024-02-07] MEDS: Metoprolol Tartrate 25 MG Tablet 12.5 MG PO (21:27)
[2024-02-08] MEDS: Zolpidem Tartrate 5 MG Tablet PO ×3 (00:03→23:05)
[2024-02-08] MEDS: Ensure Clear 120 ML Liquid PO ×3 (05:15→21:11)
[2024-02-08] MEDS: Acetaminophen 500 MG Tablet 1000 MG PO ×3 (05:15→21:08)
[2024-02-08 06:00] VITALS: BMI 22.8
[2024-02-08] MEDS: DULoxetine Hcl 30 MG Capsule PO ×2 (08:46→21:08)
[2024-02-08] MEDS: Sucralfate 1 GM Tablet PO ×2 (08:46→21:09)
[2024-02-08] MEDS: Fluticasone 0.05% 1 SPRAY NASAL.SRY NASAL ×2 (08:46→21:08)
[2024-02-08] MEDS: APIXABAN 2.5 MG TABLET (WCH) PO ×2 (08:46→21:08)
[2024-02-08] MEDS: Senna/Docusate Sodium 1 Tablet PO ×2 (08:47→21:09)
[2024-02-08] MEDS: Vitamin B Comp W-C Capsule 1 CAP PO ×2 (08:47→21:09)
[2024-02-08] MEDS: Pantoprazole Sodium 40 MG Tablet PO ×2 (08:47→21:09)
[2024-02-08] MEDS: Folic Acid 1 MG Tablet PO ×2 (08:47→18:02)
[2024-02-08] MEDS: Menthol/Lanolin/Calamine/Znox 113 GM Tube 1 APPLIC TOPICAL ×2 (08:49→21:10)
[2024-02-08 09:00] VITALS: BP 87/52; PULSE 80; RESP 16; TEMP 36.2; O2SAT 99
[2024-02-08 10:31] VITALS: PULSE 90
[2024-02-08] MEDS: Metoprolol Tartrate 25 MG Tablet 12.5 MG PO (10:31)
[2024-02-08 10:41] VITALS: BP 84/62; PULSE 91
[2024-02-08 11:00] VITALS: BP 94/62; PULSE 91; RESP 18; TEMP 36.1; O2SAT 99
[2024-02-08 20:00] VITALS: PULSE 90; RESP 16; O2SAT 95
[2024-02-08] MEDS: Atorvastatin Calcium 40 MG Tablet PO (21:09)
[2024-02-08 21:16] VITALS: BP 91/65; PULSE 87
[2024-02-08] MEDS: Metoprolol Tartrate 25 MG Tablet 6.25 MG PO (21:16)
[2024-02-09] MEDS: Acetaminophen 500 MG Tablet 1000 MG PO ×3 (05:51→21:19)
[2024-02-09] MEDS: Ensure Clear 120 ML Liquid PO ×4 (05:51→21:20)
[2024-02-09 05:58] LABS: Absolute Lymphocyte Count 2.16 X10^3/uL (0.83-4.51); Absolute Neutrophil Count 4.4 X10^3/uL (2.0-7.7); Basophil# 0.07 X10^3/uL; Basophil% 0.9 % (0-1); Eosinophil# 0.32 X10^3/uL; Hematocrit 36.3 % (40-54); Hemoglobin 11.4 g/dL (13.0-16.5); Lymphocyte # 2.16 X10^3/ul (0.83-4.51); Mean Corp Hgb Conc 31.4 g/dL (32-36); Mean Corpuscular Hgb 29.4 pg (27.0-32.0); Mean Corpuscular Volume 93.6 fL (80-94); Mean Platelet Vol. 9.8 fl (6.2-12.0); Monocyte% 12.5 % (0-10); NRBC Flagged by Analyzer 0 % (0-5); Neutrophil # 4.43 X10^3/uL (2.7-7.7); Neutrophil % 55.2 % (47-70); Platelet Count 447 K/mm3 (150-450); RBC Distribution Width CV 15.8 % (11.6-14.6); RBC Distribution Width SD 53.8 fl (35.1-43.9); Red Blood Count 3.88 M/mm3 (4.6-6.2)
[2024-02-09 06:33] LABS: Anion Gap 7 (5-15); BUN 37 mg/dL (7-18); BUN/Creat Ratio 24.8 RATIO (10-20); Calcium,Total 8.6 mg/dL (8.5-10.1); Chloride 111 mmol/L (98-107); Creatinine, Serum 1.49 mg/dL (0.70-1.30); EST Glomerular Filtration Rate 48 mL/min (>60); Est Glom Filt Rate - Afr Amer 58 mL/min (>60); Glucose 98 mg/dL (74-106); Potassium 3.9 mmol/L (3.5-5.1); Sodium Level 137 mmol/L (136-145)
[2024-02-09 09:18] VITALS: BP 107/62; PULSE 76; RESP 16; TEMP 36.3; O2SAT 99
[2024-02-09] MEDS: APIXABAN 2.5 MG TABLET (WCH) PO ×2 (09:20→21:20)
[2024-02-09] MEDS: Menthol/Lanolin/Calamine/Znox 113 GM Tube 1 APPLIC TOPICAL ×2 (09:20→21:26)
[2024-02-09] MEDS: Pantoprazole Sodium 40 MG Tablet PO ×2 (09:20→21:20)
[2024-02-09] MEDS: Sucralfate 1 GM Tablet PO ×2 (09:20→21:21)
[2024-02-09] MEDS: Folic Acid 1 MG Tablet PO ×2 (09:20→17:11)
[2024-02-09] MEDS: DULoxetine Hcl 30 MG Capsule PO ×2 (09:20→21:21)
[2024-02-09] MEDS: Vitamin B Comp W-C Capsule 1 CAP PO ×2 (09:20→21:21)
[2024-02-09] MEDS: Fluticasone 0.05% 1 SPRAY NASAL.SRY NASAL ×2 (09:21→21:20)
[2024-02-09 09:22] VITALS: PULSE 76
[2024-02-09] MEDS: Metoprolol Tartrate 25 MG Tablet 6.25 MG PO ×2 (09:22→21:21)
--- NOTE | 2024-02-09 09:42 | RAD_ITS ---
STUDY: X-RAY - PELVIS AND RIGHT HIP REASON FOR EXAM: Male, 83 years old. Postoperative from hip replacement surgery TECHNIQUE: 3 views of the pelvis and hip. COMPARISON: None. FINDINGS: Stable appearance of the replaced right hip joint. Alignment is anatomic, no plain film evidence of hardware complication or failure. Previously noted subcutaneous emphysema has resolved. 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 RAD/HIP, UNI W/ Pelvis 2-3 Views IMPRESSION: Stable appearance of the replaced right hip joint. No plain film evidence of hardware complications, failure. She recently noted subcutaneous emphysema has resolved Electronically Signed: Sammy Hatfield MD at 18:11 EDT ,
--- NOTE | 2024-02-09 09:49 | NURSING ---
Per Dr. Reaves, he'll be in to see patient today after clinic hours, order for xrays received and entered.
[2024-02-09 09:55] VITALS: BMI 22.9
--- NOTE | 2024-02-09 12:00 | NURSING ---
pt off unit to xray via
--- NOTE | 2024-02-09 15:44 | DS.PCM_ITS ---
Providers Date of Admission: 01/25/24 Primary Care Physician: Dr. Joelle Stern MD Consultations 01/25/24 16:07 Consult: Nephrology Routine Consulting Provider: Sal Callahan Reason for Consult: SYLVIA, HFrEF. EMERGENT Consult: No Notified: Yes Date Notified: 01/25/24 Time Notified: 16:07 Method of Notification: Answering Service 01/29/24 21:05 Consult: Hospice / Palliative Care Routine Consulting Provider: [facility] Reason for Consult: PALLIATIVE - multiple rehospitalizations, pain, and CHF. EMERGENT Consult: No Notified: Yes Date Notified: 01/29/24 Time Notified: 21:05 Method of Notification: Text Reason For Visit: RIGHTHIP FRACTURE P/S FALL AND PAF Diagnosis Discharge Diagnosis (1) CKD (chronic kidney disease), stage III: Status: Inactive Code(s): N18.30 - Chronic kidney disease, stage 3 unspecified Qualifiers: Chronic kidney disease stage 3 subtype: stage 3b (GFR 30-44) Qualified Code(s): N18.32 - Chronic kidney disease, stage 3b Plan 83 year old male with below past medical history hospitalized for right hip fracture, underwent right hip hemiarthroplasty 01/23/[address] Reaves, postoperative course complicated by acute kidney injury, admitted to TCU with debility, here for rehabilitation, strengthening, prior to discharge home with . * Debility - PT/OT. * Pain - Tylenol 1000mg q8. * Bowel - senna/colace 1 tablet bid, Miralax 17gm daily prn. * Adult immunization - Administer pneumonia vaccine, covid vaccine, flu vaccine as appropriate. * DVT prophylaxis - Eliquis 2.5mg bid. * SYLVIA - renal ultrasound, consult Nephrology. * Hyperlipidemia - Atorvastatin 40mg qhs. * Depression - Duloxetine 30mg bid, stable chronic residential use, GDR not recommended. * Nutrition - Ensure Plus 120ml tidcm. * Allergic rhinitis - Flonase 1 spray nasal bid. * Folate deficiency - Folic acid 1mg bidcm. * HFrEF - Metoprolol succinate 25mg daily, Losartan 25mg daily, Aldactone 25mg daily, Furosemide 40mg daily. * Duodenal ulcer - Pantoprazole 40mg bid, Sucralfate 1gm bid. * Leg cramps - Vitamin B complex 1 cap bid. Medications at Discharge Home Medications folic acid 1 mg tablet 1 mg PO BID supplement 10/11/21 vitamin B complex 1 cap PO BID vitamin 10/11/21 rosuvastatin 20 mg tablet 20 mg PO DAILY cholesterol 12/16/21 apixaban 2.5 mg tablet (Eliquis) 2.5 mg PO BID blood thinner 03/23/23 duloxetine 30 mg capsule,delayed release 30 mg PO BID DEPRESSION 12/15/23 fluticasone propionate 50 mcg/actuation nasal spray,suspension 1 spray NASAL BID lungs/asthma 30 days #16 grams 12/27/23 pantoprazole 40 mg tablet,delayed release (Protonix) 40 mg PO BID acid reflux 30 days #60 tabs 12/27/23 sucralfate 1 gram tablet (Carafate) 1 g PO BID stomach 30 days #60 tabs 12/27/23 acetaminophen 500 mg tablet 1,000 mg (2 x 500 mg) PO Q8 pain/inflammati #0 tabs 01/25/24 menthol 0.44 %-zinc oxide 20.6 % topical ointment (Calmoseptine) 1 applic topical BID #0 grams 02/09/24 metoprolol tartrate 25 mg tablet 6.25 mg (1/4 x 25 mg) PO BID #0 tabs 02/09/24 sennosides 8.6 mg-docusate sodium 50 mg tablet (Stool Softener-Stimulant Laxative) 1 tab PO BID #0 tabs 02/09/24 tramadol 50 mg tablet 50 mg PO Q6H PRN PRN Pain Score 1-10 3 days #12 tabs 02/09/24 zolpidem 5 mg tablet 5 mg PO QHS PRN PRN Insomnia 3 days #3 tabs 02/09/24 Hospital Course Operations - (Right hip hemiarthroplasty.) Procedures None Summary of Care Provided Minutes Spent on Discharge: 35 Hospital Course: 83 year old male with below past medical history hospitalized for right hip fracture, underwent right hip hemiarthroplasty 01/23/[address] Reaves, postoperative course complicated by acute kidney injury, admitted to TCU with friend, here for rehabilitation, strengthening, prior to discharge home with . Discharge to [facility] 02/12/2024, intermediate, part b therapies. Physical Exam Const alert General Appearance: cooperative HEENT normocephalic Eyes PERRL and EOMs intact bilaterally Neck supple, no JVD and no carotid bruits Resp normal respiratory effort, normal air movement and clear to auscultation bilaterally Cardio regular rate and regular rhythm GI normal to inspection, nondistended, normoactive bowel sounds, non-tender and non-distended Extremity normal capillary refill General Extremity: Negative for edema Skin no rashes or lesions noted General Skin Exam: no breakdown Psych affect normal Appearance: appropriate Weight / BMI Weight Weight: 74.571 kg Body Mass Index (BMI) 22.9 ABG / Lab / Microbiology Data 02/09/24 05:30 02/09/24 05:30 Laboratory: Laboratory Results - last 24 hr 02/09/24 05:30: WBC 8.0, RBC 3.88 L, Hgb 11.4 L, Hct 36.3 L, MCV 93.6, MCH 29.4, MCHC 31.4 L, RDW Std Deviation 53.8 H, RDW Coeff of [place] 15.8 H, Plt Count 447, MPV 9.8, Immature Gran % (Auto) 0.400, Neut % (Auto) 55.2, Lymph % (Auto) 27.0, [place] % (Auto) 12.5 H, Eos % (Auto) 4.0, Baso % (Auto) 0.9, Absolute Neuts (auto) 4.4, Absolute Lymphs (auto) 2.16, Nucleated RBC % 0, Sodium 137, Potassium 3.9, Chloride 111 H, Carbon Dioxide 19.0 L, Anion Gap 7, BUN 37 H, Creatinine 1.49 H, Estim Creat Clear Calc 39.60, Est GFR (MDRD) Af Amer 58 L, Est GFR (MDRD) Non-Af 48 L, BUN/Creatinine Ratio 24.8 H, Glucose 98, Calcium 8.6 D/C Instructions Discharge Diet: No restrictions Discharge Activity: Return to Normal Activity, May Shower and Use Walker Weight Bearing Status: Weight bearing as tolerated Call your doctor if you observe: Fever of 101 or Higher, Inability to urinate, Inability to have a bowel movement, Shortness of breath, Dizziness, Fainting spells, Swelling in the ankles, Chest pain and Uncontrolled pain Additional Instructions: Discharge to [facility] 02/12/2024, intermediate, part b therapies. Please Follow Up With: Dr. Spittle When: As scheduled. Meaningful Use Info Meaningful Use Diagnoses (Choose all that apply): None applicable Discharge Plan Admission Admit Date/Time: 01/25/24 15:25 Primary Reason for Your Visit: Debility. Attending Provider: Brett Goldberg Chi Primary Care Provider: Joelle Stern Consulting Providers: Sal Callahan; Heber Zabala; Adamaris Eden; Brittney Lazo; Esmer Tran CISCO NETWORK ENGINEER Instructions Additional Instructions / Restrictions: Discharge to [facility] 02/12/2024, intermediate, part b therapies. Discharge Orders/Prescriptions Prescriptions: New sennosides-docusate sodium [Stool Softener-Stimulant Laxat] 8.6-50 mg Tablet 1 tab PO BID Qty: 0 0RF tramadol 50 mg Tablet 50 mg PO Q6H PRN PRN (Reason: Pain Score 1-10) 3 Days Qty: 12 0RF zolpidem 5 mg Tablet 5 mg PO QHS PRN PRN (Reason: Insomnia) 3 Days Qty: 3 0RF metoprolol tartrate 25 mg Tablet 6.25 mg PO BID Qty: 0 0RF menthol-zinc oxide [Calmoseptine] 0.44-20.6 % Ointment 1 applic topical BID Qty: 0 0RF Protocol: *Topical Application Instructions APPLICATION INSTRUCTIONS: bilateral buttocks Continued rosuvastatin 20 mg tablet 20 mg PO DAILY Patient Comments: take 1 tablet by mouth every morning Eliquis 2.5 mg tablet 2.5 mg PO BID Hold Instructions: Resume on 12/30/23. Patient Comments: take 1 tablet by mouth twice a day folic acid 1 mg Tablet 1 mg PO BID vitamin B complex Capsule 1 cap PO BID duloxetine 30 mg capsule,delayed release(DR/EC) 30 mg PO BID Hold Instructions: Resume on 12/25/23. fluticasone propionate 50 mcg/actuation [place],Suspension 1 spray NASAL BID 30 Days Qty: 16 0RF pantoprazole [Protonix] 40 mg tablet,delayed release (DR/EC) 40 mg PO BID 30 Days Qty: 60 0RF sucralfate [Carafate] 1 gram tablet 1 g PO BID 30 Days Qty: 60 0RF acetaminophen 500 mg Tablet 1,000 mg PO Q8 Qty: 0 0RF Discontinued losartan 25 mg tablet 25 mg PO DAILY Qty: 30 11RF spironolactone 25 mg Tablet 25 mg PO DAILY 30 Days Qty: 30 0RF metoprolol succinate 25 mg Tablet Extended Release 24 Hr 25 mg PO DAILY 30 Days Qty: 30 0RF furosemide [Lasix] 40 mg tablet 40 mg PO DAILY Rx Instructions: Notify your cardiology if you use the medication. Referrals / Follow Up: Joelle Stern MD [Primary Care Provider] - Disposition Disposition (needs filled in before D/C Order can be placed): NonSkilled NH/Intermed Care
--- NOTE | 2024-02-09 15:50 | TREXTCAR_ITS ---
Diet Diet Order/Speech Therapy: 01/26/24 13:40 Diet: Regular - No Added Salt Food consistency:: Regular Liquid Consistency:: Regular/Thin Is pt able to select menu?: Yes Routine Orders/Code Status Code Status: DNRCC-A (No intubation.) Wound(s) left hand: Wound Type: Skin Tear Dressing Change: Steri-Strips Right Hip: Wound Type: Surgical Incision Dressing Change: Surgical Mepilex Therapies Weight Bearing: Weight bearing as tolerated Extremity Affected:: Bilateral Lower Physical Therapy: Eval and Treat Occupational Therapy: Eval and Treat Problem/Diagnosis (1) CKD (chronic kidney disease), stage III: Status: Inactive Code(s): N18.30 - Chronic kidney disease, stage 3 unspecified Comment: Patient's basic metabolic panel was repeated yesterday I do not have those resul ts yet. Will reevaluate the patient's medical regiment pending the outcome of laboratory evaluations as noted above. Plan 83 year old male with below past medical history hospitalized for right hip fracture, underwent right hip hemiarthroplasty 01/23/[address] Reaves, postoperative course complicated by acute kidney injury, admitted to TCU with debility, here for rehabilitation, strengthening, prior to discharge home with . * Debility - PT/OT. * Pain - Tylenol 1000mg q8. * Bowel - senna/colace 1 tablet bid, Miralax 17gm daily prn. * Adult immunization - Administer pneumonia vaccine, covid vaccine, flu vaccine as appropriate. * DVT prophylaxis - Eliquis 2.5mg bid. * SYLVIA - renal ultrasound, consult Nephrology. * Hyperlipidemia - Atorvastatin 40mg qhs. 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 * Nutrition - Ensure Plus 120ml tidcm. * Allergic rhinitis - Flonase 1 spray nasal bid. * Folate deficiency - Folic acid 1mg bidcm. * HFrEF - Metoprolol succinate 25mg daily, Losartan 25mg daily, Aldactone 25mg daily, Furosemide 40mg daily. * Duodenal ulcer - Pantoprazole 40mg bid, Sucralfate 1gm bid. * Leg cramps - Vitamin B complex 1 cap bid. Allergies/Procedures Done in Hospital Allergies Iodinated Contrast Media Allergy (Severe, Verified 01/21/24 18:13) Shortness of breath iodine Allergy (Verified 01/21/24 18:13) Shortness of breath Procedures: None Type of Care/Length of Stay Estimated LOS: Convalescent Care Less Than 30 days Type of Care Needed: Intermediate Rehab Potential: Fair Prognosis: Fair Additional Orders/Day of Discharge Day of Discharge: 02/12/24 Dietary and Speech Recommendations Dietitian Recommendations/Changes: Continue Regular - No Added Salt diet d/t pmhx and issues w/ edema Continue Ensure Clear 120mL 4x/day with medpass Follow Up Care Please Follow Up With: Dr. Reaves When: 2 weeks from 01/22 Discharge Plan Admission Admit Date/Time: 01/25/24 15:25 Primary Reason for Your Visit: Debility. Attending Provider: Brett Goldberg Chi Primary Care Provider: Joelle Stern Consulting Providers: Sal Callahan; Heber Zabala; Adamaris Eden; Brittney Lazo; Esmer Tran SCANNER OPERATOR Instructions Additional Instructions / Restrictions: Discharge to [facility] 02/12/2024, intermediate, part b therapies. Discharge Orders/Prescriptions Prescriptions: New sennosides-docusate sodium [Stool Softener-Stimulant Laxat] 8.6-50 mg Tablet 1 tab PO BID Qty: 0 0RF tramadol 50 mg Tablet 50 mg PO Q6H PRN PRN (Reason: Pain Score 1-10) 3 Days Qty: 12 0RF zolpidem 5 mg Tablet 5 mg PO QHS PRN PRN (Reason: Insomnia) 3 Days Qty: 3 0RF metoprolol tartrate 25 mg Tablet 6.25 mg PO BID Qty: 0 0RF menthol-zinc oxide [Calmoseptine] 0.44-20.6 % Ointment 1 applic topical BID Qty: 0 0RF Protocol: *Topical Application Instructions APPLICATION INSTRUCTIONS: bilateral buttocks Continued rosuvastatin 20 mg tablet 20 mg PO DAILY Patient Comments: take 1 tablet by mouth every morning Eliquis 2.5 mg tablet 2.5 mg PO BID Hold Instructions: Resume on 12/30/23. Patient Comments: take 1 tablet by mouth twice a day folic acid 1 mg Tablet 1 mg PO BID vitamin B complex Capsule 1 cap PO BID duloxetine 30 mg capsule,delayed release(DR/EC) 30 mg PO BID Hold Instructions: Resume on 12/25/23. fluticasone propionate 50 mcg/actuation [place],Suspension 1 spray NASAL BID 30 Days Qty: 16 0RF pantoprazole [Protonix] 40 mg tablet,delayed release (DR/EC) 40 mg PO BID 30 Days Qty: 60 0RF sucralfate [Carafate] 1 gram tablet 1 g PO BID 30 Days Qty: 60 0RF acetaminophen 500 mg Tablet 1,000 mg PO Q8 Qty: 0 0RF Discontinued losartan 25 mg tablet 25 mg PO DAILY Qty: 30 11RF spironolactone 25 mg Tablet 25 mg PO DAILY 30 Days Qty: 30 0RF metoprolol succinate 25 mg Tablet Extended Release 24 Hr 25 mg PO DAILY 30 Days Qty: 30 0RF furosemide [Lasix] 40 mg tablet 40 mg PO DAILY Rx Instructions: Notify your cardiology if you use the medication. Referrals / Follow Up: Joelle Stern MD [Primary Care Provider] - Disposition Disposition (needs filled in before D/C Order can be placed): NonSkilled NH/Intermed Care (1) CKD (chronic kidney disease), stage III Qualifiers: Chronic kidney disease stage 3 subtype: stage 3b (GFR 30-44) Qualified Code(s): N18.32 - Chronic kidney disease, stage 3b
--- NOTE | 2024-02-09 16:38 | CASEMGMT ---
Social Work Insurance issued LCD 02/10/25 DC 02/11/25. This worker spoke with patient, educated to DC date, explained appeal rights and discussed discharge plans. Confirmed patient will discharge to [facility] on 02/11/25. Pt stated his and a friend will be able to transport him to the facility. Social updated [facility], sent DC orders and completed PASRR. Plan: DC [facility] 02/11/25 Intermediate, Part B therapies [facility] [place]
--- NOTE | 2024-02-09 16:44 | CASEMGMT ---
Social Work BIMS () & PHQ9 (07/16) completed for MDS assessment. This worker discussed positive responses and increased score on PHQ9 compared to admission assessment. Patient stated he does feel homesick and missed his family/friends when they are not visiting. He stated this is the longest he has been away from home. SW provided supportive listening and reassurances. Pt [facility]iary [facility] with goal to return home from there.
--- NOTE | 2024-02-09 17:09 | PN.ORTHO_ITS ---
Subjective Subjective Patient seen and examined. He reports he is doing well. He is mobilizing with physical therapy. He states he is walking the halls with a front wheel walker. Denies significant pain. Denies fevers, chills, nausea vomiting, chest pain or shortness of breath. Patient is being transferred to [facility] next week for continued convalescence. Objective Data Objective Data Vital Signs: Vital Signs Temp Pulse Resp BP Pulse Ox O2 Del Method 97.4 F L 76 16 107/62 99 Room Air 02/09/24 09:18 02/09/24 09:22 02/09/24 09:18 02/09/24 09:18 02/09/24 09:18 02/09/24 09:18 Oxygen Delivery Method Room Air Weight: 164 lb 6.4 oz Body Mass Index (BMI) 22.9 Intake & Output: Intake and Output for Last 24 Hours 02/07/24 02/08/24 02/09/24 23:59 23:59 23:59 Intake Total 580 / 580 600 / 600 360 / 360 Balance 580 / 580 600 / 600 360 / 360 Lab / Micro Data 02/09/24 05:30 02/09/24 05:30 Labs: Laboratory Results - last 24 hr 02/09/24 05:30: WBC 8.0, RBC 3.88 L, Hgb 11.4 L, Hct 36.3 L, MCV 93.6, MCH 29.4, MCHC 31.4 L, RDW Std Deviation 53.8 H, RDW Coeff of Laney 15.8 H, Plt Count 447, MPV 9.8, Immature Gran % (Auto) 0.400, Neut % (Auto) 55.2, Lymph % (Auto) 27.0, [place] % (Auto) 12.5 H, Eos % (Auto) 4.0, Baso % (Auto) 0.9, Absolute Neuts (auto) 4.4, Absolute Lymphs (auto) 2.16, Nucleated RBC % 0, Sodium 137, Potassium 3.9, Chloride 111 H, Carbon Dioxide 19.0 L, Anion Gap 7, BUN 37 H, Creatinine 1.49 H, Estim Creat Clear Calc 39.60, Est GFR (MDRD) Af Amer 58 L, Est GFR (MDRD) Non-Af 48 L, BUN/Creatinine Ratio 24.8 H, Glucose 98, Calcium 8.6 Physical Exam Narrative General - A&Ox3, NAD. VSS/AF Right lower extremity -well-approximated posterior lateral skin incision. No erythema or drainage. SILT Sural, Saphenous, SPN, DPN, Tibial N. distributions. DP, PT 2+. BCR. DF, PF, EHL 5/5. No calf TTP. Assessment & Plan Assessment/Plan (1) Closed fracture of right hip: QUALIFIERS: Encounter type: initial encounter Qualified Code(s): S72.001A - Fracture of unspecified part of neck of right femur, initial encounter for closed fracture PLAN: X-rays reviewed from 02/09/2024 demonstrated maintained alignment from immediate postoperative films. Patient is mobilizing well. Continue to Eliquis for DVT prophylaxis/A-fib. Continue postoperative posterior hip precautions until 6 weeks postoperative. Weightbearing as tolerated right hip. I will have nursing staff remove loren. Okay to shower, no tub soaks until 6 weeks postoperatively. Follow-up in 1 month for his 6-week postoperative follow-up in the office. Will obtain x-rays upon arrival. Please not hesitate to call if any questions or concerns arise in the meantime.
--- NOTE | 2024-02-09 17:09 | NURSING ---
dr caba here and spoke with pt, new order to DC loren.
--- NOTE | 2024-02-09 17:16 | NURSING ---
19 loren removed from rt hip per dr caba order. incision well approximated, healing dark pink color to distal end of incision. healing well.
[2024-02-09 17:38] VITALS: PULSE 80; RESP 16; O2SAT 96
[2024-02-09] MEDS: Atorvastatin Calcium 40 MG Tablet PO (21:20)
[2024-02-09 21:21] VITALS: PULSE 77
[2024-02-09] MEDS: Zolpidem Tartrate 5 MG Tablet PO ×2 (21:21→22:56)
[2024-02-10] MEDS: Acetaminophen 500 MG Tablet 1000 MG PO ×3 (05:25→21:16)
[2024-02-10] MEDS: Ensure Clear 120 ML Liquid PO ×4 (05:25→21:13)
[2024-02-10 09:10] VITALS: BP 99/59; PULSE 73; RESP 16; TEMP 36.1; O2SAT 97
[2024-02-10] MEDS: Menthol/Lanolin/Calamine/Znox 113 GM Tube 1 APPLIC TOPICAL ×2 (09:13→21:35)
[2024-02-10] MEDS: Vitamin B Comp W-C Capsule 1 CAP PO ×2 (09:13→21:15)
[2024-02-10] MEDS: APIXABAN 2.5 MG TABLET (WCH) PO ×2 (09:13→21:14)
[2024-02-10] MEDS: Sucralfate 1 GM Tablet PO ×2 (09:13→21:14)
[2024-02-10] MEDS: DULoxetine Hcl 30 MG Capsule PO ×2 (09:13→21:13)
[2024-02-10] MEDS: Pantoprazole Sodium 40 MG Tablet PO ×2 (09:13→21:16)
[2024-02-10] MEDS: Folic Acid 1 MG Tablet PO ×2 (09:14→16:59)
[2024-02-10] MEDS: Fluticasone 0.05% 1 SPRAY NASAL.SRY NASAL ×2 (09:14→21:13)
[2024-02-10 10:35] VITALS: BP 100/62; PULSE 75
[2024-02-10 10:39] VITALS: PULSE 75
[2024-02-10] MEDS: Metoprolol Tartrate 25 MG Tablet 6.25 MG PO ×2 (10:39→21:16)
[2024-02-10 11:51] VITALS: BMI 23.0
[2024-02-10] MEDS: Senna/Docusate Sodium 1 Tablet PO (21:15)
[2024-02-10] MEDS: Atorvastatin Calcium 40 MG Tablet PO (21:15)
[2024-02-10 21:16] VITALS: PULSE 73
[2024-02-10] MEDS: Zolpidem Tartrate 5 MG Tablet PO (23:05)
[2024-02-11] MEDS: Acetaminophen 500 MG Tablet 1000 MG PO ×3 (05:28→21:11)
[2024-02-11] MEDS: Ensure Clear 120 ML Liquid PO ×4 (05:28→21:12)
[2024-02-11 08:31] VITALS: BP 90/52; PULSE 72; RESP 17; TEMP 36.3; O2SAT 100
[2024-02-11] MEDS: Vitamin B Comp W-C Capsule 1 CAP PO ×2 (08:34→21:13)
[2024-02-11] MEDS: Folic Acid 1 MG Tablet PO ×2 (08:34→16:59)
[2024-02-11] MEDS: Fluticasone 0.05% 1 SPRAY NASAL.SRY NASAL ×2 (08:35→21:14)
[2024-02-11] MEDS: APIXABAN 2.5 MG TABLET (WCH) PO ×2 (08:35→21:14)
[2024-02-11] MEDS: DULoxetine Hcl 30 MG Capsule PO ×2 (08:35→21:13)
[2024-02-11] MEDS: Sucralfate 1 GM Tablet PO ×2 (08:35→21:13)
[2024-02-11] MEDS: Pantoprazole Sodium 40 MG Tablet PO ×2 (08:36→21:14)
[2024-02-11 10:11] VITALS: BP 101/75; PULSE 74
[2024-02-11 10:12] VITALS: PULSE 74
[2024-02-11] MEDS: Metoprolol Tartrate 25 MG Tablet 6.25 MG PO ×2 (10:12→21:11)
[2024-02-11 18:21] VITALS: BMI 23.3
[2024-02-11 20:00] VITALS: PULSE 84; RESP 18; O2SAT 98
[2024-02-11] MEDS: Zolpidem Tartrate 5 MG Tablet PO ×2 (21:10→22:58)
[2024-02-11 21:11] VITALS: BP 101/70; PULSE 74
[2024-02-11] MEDS: Atorvastatin Calcium 40 MG Tablet PO (21:13)
[2024-02-11] MEDS: Senna/Docusate Sodium 1 Tablet PO (21:14)
[2024-02-12 06:00] VITALS: BMI 22.8
[2024-02-12] MEDS: Ensure Clear 120 ML Liquid PO (06:16)
[2024-02-12] MEDS: Acetaminophen 500 MG Tablet 1000 MG PO ×2 (06:16→12:43)
[2024-02-12 09:26] VITALS: BP 96/52; PULSE 55; RESP 18; TEMP 36.2; O2SAT 94
[2024-02-12] MEDS: Sucralfate 1 GM Tablet PO (09:30)
[2024-02-12] MEDS: Senna/Docusate Sodium 1 Tablet PO (09:30)
[2024-02-12] MEDS: DULoxetine Hcl 30 MG Capsule PO (09:30)
[2024-02-12] MEDS: Folic Acid 1 MG Tablet PO (09:30)
[2024-02-12] MEDS: APIXABAN 2.5 MG TABLET (WCH) PO (09:30)
[2024-02-12] MEDS: Pantoprazole Sodium 40 MG Tablet PO (09:30)
[2024-02-12] MEDS: Menthol/Lanolin/Calamine/Znox 113 GM Tube 1 APPLIC TOPICAL (09:30)
[2024-02-12] MEDS: Fluticasone 0.05% 1 SPRAY NASAL.SRY NASAL (09:30)
[2024-02-12] MEDS: Vitamin B Comp W-C Capsule 1 CAP PO (09:30)
[2024-02-12 11:10] VITALS: BP 90/53; PULSE 54
--- NOTE | 2024-02-12 11:12 | NURSING ---
pt with low BP this AM, denies symptoms. held lopressor BP 90/53 HR 54. Will update SWCC during report for Discharge. pt sitting in recliner chair, call light in reach. Chair alarm in place.
[2024-02-12 12:13] VITALS: BMI 22.9
--- NOTE | 2024-02-12 12:58 | NURSING ---
Called report to Carmela at [facility]. Patient transported to facility by family.
== END 2024-02-12 12:40 | disposition intermediate care facility (04) | DRG 561 ==
PROVIDERS: Admitting Provider Family Medicine Geriatric Medicine; PCP Internal Medicine; Visit Provider Family Medicine Geriatric Medicine
DX: S72.001D Fracture of unspecified part of neck of right femur, subsequent encounter for closed fracture with routine healing (principal); K26.9 Duodenal ulcer, unspecified as acute or chronic, without hemorrhage or perforation; N18.32 Chronic kidney disease, stage 3b; F32.A Depression, unspecified; I12.9 Hypertensive chronic kidney disease with stage 1 through stage 4 chronic kidney disease, or unspecified chronic kidney disease; I48.91 Unspecified atrial fibrillation; E53.8 Deficiency of other specified B group vitamins; J30.9 Allergic rhinitis, unspecified; E78.5 Hyperlipidemia, unspecified; K21.9 Gastro-esophageal reflux disease without esophagitis; W19.XXXD Unspecified fall, subsequent encounter; M48.54XD Collapsed vertebra, not elsewhere classified, thoracic region, subsequent encounter for fracture with routine healing; Z79.01 Long term (current) use of anticoagulants; Z96.641 Presence of right artificial hip joint; Z79.899 Other long term (current) drug therapy; Z23 Encounter for immunization; G47.00 Insomnia, unspecified
CPT/HCPCS: 36415; 71046; 73502; 76770; 80048; 85025; 90480; 92523; 92526; 92610; 97110; 97116; 97150; 97162; 97166; 97530; 97535; 97802; 91322

== ENCOUNTER → 2024-02-13 | Outpatient (REF) | payer MEDICARE, SELFPAY ==
[2024-02-13 09:31] LABS: Absolute Lymphocyte Count 1.93 X10^3/uL (0.83-4.51); Absolute Neutrophil Count 4.8 X10^3/uL (2.0-7.7); Basophil# 0.05 X10^3/uL; Basophil% 0.6 % (0-1); Eosinophil# 0.26 X10^3/uL; Eosinophils% 3.4 % (0-5); Hematocrit 35.5 % (40-54); Hemoglobin 11.4 g/dL (13.0-16.5); Lymphocyte # 1.93 X10^3/ul (0.83-4.51); Lymphocyte % 24.9 % (19-41); Mean Corp Hgb Conc 32.1 g/dL (32-36); Mean Corpuscular Hgb 30.6 pg (27.0-32.0); Mean Corpuscular Volume 95.2 fL (80-94); Mean Platelet Vol. 10.4 fl (6.2-12.0); Monocyte# 0.72 X10^3/uL; Monocyte% 9.3 % (0-10); NRBC Flagged by Analyzer 0 % (0-5); Neutrophil # 4.77 X10^3/uL (2.7-7.7); Neutrophil % 61.5 % (47-70); Platelet Count 370 K/mm3 (150-450); RBC Distribution Width CV 16.2 % (11.6-14.6); RBC Distribution Width SD 56.5 fl (35.1-43.9); Red Blood Count 3.73 M/mm3 (4.6-6.2); White Blood Count 7.8 K/mm3 (4.4-11.0)
[2024-02-13 09:46] LABS: Vitamin B12 1072 pg/mL (211-911)
[2024-02-13 09:55] LABS: Anion Gap 10 (5-15); BUN 36 mg/dL (7-18); BUN/Creat Ratio 25.2 RATIO (10-20); Calcium,Total 8.5 mg/dL (8.5-10.1); Chloride 109 mmol/L (98-107); Creatinine, Serum 1.43 mg/dL (0.70-1.30); EST Glomerular Filtration Rate 50 mL/min (>60); Est Glom Filt Rate - Afr Amer 61 mL/min (>60); Glucose 91 mg/dL (74-106); Magnesium 2.1 mg/dL (1.6-2.6); Potassium 3.7 mmol/L (3.5-5.1); Sodium Level 138 mmol/L (136-145)
== END ==
LOC: OLS.SW 05:00
PROVIDERS: PCP Internal Medicine; Visit Provider Internal Medicine
DX: Z02.2 Encounter for examination for admission to residential institution (principal)
CPT/HCPCS: 36415; 80048; 82306; 82607; 83735; 85025

== ENCOUNTER → 2024-02-19 | Outpatient (REF) | payer MEDICARE, SELFPAY ==
[2024-02-19 08:41] LABS: Hematocrit 36.9 % (40-54); Hemoglobin 11.9 g/dL (13.0-16.5); Mean Corp Hgb Conc 32.2 g/dL (32-36); Mean Corpuscular Hgb 30.7 pg (27.0-32.0); Mean Corpuscular Volume 95.1 fL (80-94); Platelet Count 330 K/mm3 (150-450); RBC Distribution Width SD 59.2 fl (35.1-43.9); Red Blood Count 3.88 M/mm3 (4.6-6.2); White Blood Count 7.3 K/mm3 (4.4-11.0)
[2024-02-19 09:04] LABS: BNP,B-Type NATRIURETIC PEPTIDE 459.3 pg/mL (0-100)
[2024-02-19 09:24] LABS: Anion Gap 5 (5-15); BUN 36 mg/dL (7-18); BUN/Creat Ratio 22.2 RATIO (10-20); Calcium,Total 8.6 mg/dL (8.5-10.1); Chloride 110 mmol/L (98-107); Creatinine, Serum 1.62 mg/dL (0.70-1.30); EST Glomerular Filtration Rate 43 mL/min (>60); Est Glom Filt Rate - Afr Amer 53 mL/min (>60); Glucose 90 mg/dL (74-106); Magnesium 2.1 mg/dL (1.6-2.6); Potassium 3.6 mmol/L (3.5-5.1); Sodium Level 137 mmol/L (136-145)
== END ==
LOC: OLS.SW 04:00
PROVIDERS: PCP Internal Medicine; Referring Provider Internal Medicine; Visit Provider Internal Medicine
DX: N18.32 Chronic kidney disease, stage 3b (principal); R06.02 Shortness of breath
CPT/HCPCS: 36415; 80048; 83735; 83880; 85027

== ENCOUNTER 2024-04-05 07:24 | Emergency (ER) | payer MEDICARE, SELFPAY ==
[2024-04-05] VITALS (18 sets, daily range): BP systolic 121–162; BP diastolic 00–100; PULSE 50–85; RESP 14–53; TEMP 35.9–36.4; O2SAT 93–99; BMI 25.7
--- NOTE | 2024-04-05 07:51 | EKG12_ITS ---
Test Reason : WEAKNESS Blood Pressure : / mmHG Vent. Rate : 055 BPM Atrial Rate : 055 BPM P-R Int : 000 ms QRS Dur : 200 ms QT Int : 604 ms P-R-T Axes : 000 -87 086 degrees QTc Int : 577 ms Ventricular-paced rhythm with occasional Premature ventricular complexes Abnormal ECG PROBABLE AFIB Confirmed by Hitesh Esqueda ([id number]), purchasing expeditor HINA RAYMUNDO ([id number]) on 04/08/2024 8:45:26 AM Referred By: NIKKO Confirmed By:Hitesh Esqueda
--- NOTE | 2024-04-05 08:10 | RAD_ITS ---
STUDY: X-RAY CHEST REASON FOR EXAM: Male, 84 years old. chf TECHNIQUE: Single AP portable view of the chest. COMPARISON: Comparison is made with prior study of January 29, 2024. FINDINGS: EKG electrodes are seen. There is evidence of vascular congestion mild CHF. There is blunting of the right costo phrenic angle. Increased markings are seen at the left lung base suggestive of atelectasis and/or possible infiltrate. There is borderline cardiomegaly. A left-sided dual-chamber pacemaker is seen. Normal mediastinum and sourav. Normal visualized pulmonary arteries. Normal visualized aortic arch and descending thoracic aorta. There are diffuse degenerative changes of the visualized thoracic spine. There is degenerative osteoarthritis of the bilateral shoulders. There is no demonstrated abnormality of the visualized soft tissue structures of the upper abdomen. RAD/Chest 1 View (Portable) IMPRESSION: Findings suggestive of a vascular congestion and CHF with blunting of the right costo phrenic angle. Increased markings at the left lung base suggestive of atelectasis and/or infiltrate. Electronically Signed: Konstantin Gonsales MD at 8:42 EDT ,
[2024-04-05 08:37] LABS: Absolute Lymphocyte Count 2.44 X10^3/uL (0.83-4.51); Basophil# 0.03 X10^3/uL; Basophil% 0.3 % (0-1); Eosinophil# 0.19 X10^3/uL; Eosinophils% 1.7 % (0-5); Hematocrit 43.7 % (40-54); Hemoglobin 13.6 g/dL (13.0-16.5); Lymphocyte # 2.44 X10^3/ul (0.83-4.51); Lymphocyte % 22.1 % (19-41); Mean Corp Hgb Conc 31.1 g/dL (32-36); Mean Corpuscular Volume 99.5 fL (80-94); Mean Platelet Vol. 11.9 fl (6.2-12.0); Monocyte# 1.33 X10^3/uL; Monocyte% 12.1 % (0-10); NRBC Flagged by Analyzer 0 % (0-5); Neutrophil % 63.5 % (47-70); Platelet Count 274 K/mm3 (150-450); RBC Distribution Width CV 16.9 % (11.6-14.6); RBC Distribution Width SD 60.3 fl (35.1-43.9); Red Blood Count 4.39 M/mm3 (4.6-6.2)
[2024-04-05 08:58] LABS: BNP,B-Type NATRIURETIC PEPTIDE 782.4 pg/mL (0-100)
[2024-04-05 09:05] LABS: Bacteria 0 SEEN /hpf (None Seen); Mucous, Urine 0 SEEN /hpf (<or=2+); Red Blood Cells-Urine 0 SEEN /hpf (0-5)
[2024-04-05 09:58] LABS: Color, Urine Yellow (Yellow); Glucose, Dipstick Normal (Normal); Ketone-Dipstick Negative (Negative); Leukocyte Esterase-Dipstick 25 /ul (Negative); Nitrite-Dipstick Negative (Negative); Occult Blood-Urine Negative /ul (Negative); Protein-Dipstick 30 mg/dl (Negative); Specific Gravity, Urine 1.015 (1.002-1.030); Urine Bilirubin Dipstick Negative (Negative); Urine Clarity Clear (Clear); Urine Urobilinogen Normal (Normal)
[2024-04-05 10:07] LABS: Squamous Epithelial Cells - UA 0-5 SEEN /hpf (0-5); White Blood Cells 0-5 SEEN /hpf (0-5)
[2024-04-05 10:12] LABS: ALB/GLOB Ratio 0.9 RATIO (0.9-2.4); AST(SGOT) 46 U/L (15-37); Alanine Aminotransfer ALT/SGPT 74 U/L (16-61); Albumin, Serum 3.3 g/dL (3.2-5.0); Alkaline Phosphatase 142 U/L (45-117); Anion Gap 3 (5-15); BUN 37 mg/dL (7-18); BUN/Creat Ratio 20.7 RATIO (10-20); Calcium,Total 8.9 mg/dL (8.5-10.1); Chloride 110 mmol/L (98-107); Creatinine, Serum 1.79 mg/dL (0.70-1.30); EST Glomerular Filtration Rate 39 mL/min (>60); Est Glom Filt Rate - Afr Amer 47 mL/min (>60); Estimated Creatinine Clearance 32.72 ml/min; Globulin 3.8 g/dL (2.2-4.2); Glucose 105 mg/dL (74-106); Potassium 4.3 mmol/L (3.5-5.1); Protein, Total 7.1 g/dL (6.4-8.2); Sodium Level 140 mmol/L (136-145); Troponin-I HS 133 pg/mL (3.0-78.0)
--- NOTE | 2024-04-05 10:16 | CT_ITS ---
STUDY: CT BRAIN WITHOUT CONTRAST REASON FOR EXAM: Male, 84 years old. ams RADIATION DOSAGE (If Supplied By Facility): CTDIvol = ( 44.99 ) mGy, DLP = ( 796.11 ) mGycm TECHNIQUE: Transaxial CT imaging of the brain was performed without administration of intravenous contrast material. Individualized dose optimization techniques were used for this CT. COMPARISON: Comparison is made with prior study dated December 23, 2023. FINDINGS: Normal soft tissue structures. Normal calvarium. There is mild cerebral atrophy with widening of the extra-axial spaces and ventricular dilatation. There are areas of decreased attenuation within the white matter tracts of the supratentorial brain, consistent with microvascular disease changes. 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 Stable punctate calcification in the basal ganglia. Normal brainstem. There is mild cerebellar atrophy. There is no intracranial hemorrhage. There are no findings of an acute ischemic infarction. Atherosclerotic calcification of the cavernous portions of the internal carotid arteries bilaterally. Normal visualized paranasal sinuses. CT/Brain/Head without Contrast IMPRESSION: Chronic involutional changes of the brain. Stable examination. Electronically Signed: Konstantin Gonsales MD at 10:48 EDT ,
--- NOTE | 2024-04-05 13:20 | EX.ED.GENINJ ---
HPI History of Present Illness Chief Complaint: Fall Informant: patient, parent and EMS Narrative Narrative: 84-year-old male arriving by EMS stating that he feels weak. He states that this has been an ongoing issue over the past several years. Already this year he he states that he broke his hip and had surgery and also has a fracture of his T12. He states that he was unable to get out of his chair today. EMS states that he reportedly had slid out of bed and was on the ground. His who comes later in his ED course states that she had been up for a while heard noise and found him on his knees in the bedroom by the bed. There is no reported injury. The patient is unsure of exactly why his called the ambulance. He notes a history of atrial fibrillation and has a pacemaker. He is on apixaban chronically. [facility] Medical History Chronic anticoagulation History of cardiac pacemaker Paroxysmal atrial fibrillation Pacemaker Sick sinus syndrome CKD (chronic kidney disease), stage III HTN (hypertension) Hyperkalemia, diminished renal excretion Atrial flutter HFrEF (heart failure with reduced ejection fraction) Obstructive sleep apnea Left bundle branch block (LBBB) Fatigue Dyspnea LVH (left ventricular hypertrophy) Left ventricular diastolic dysfunction Non-ischemic cardiomyopathy History of hay fever Prostate cancer Hyperlipidemia Depression Home Medications ?Medication ?Instructions ?Recorded ?Last Taken ?Type folic acid 1 mg tablet 1 mg PO BID supplement 10/11/21 04/04/24 History vitamin B complex 1 cap PO BID vitamin 10/11/21 04/04/24 History rosuvastatin 20 mg tablet 20 mg PO DAILY cholesterol 12/16/21 04/04/24 History apixaban 2.5 mg tablet (Eliquis) 2.5 mg PO BID blood thinner 03/23/23 04/04/24 History duloxetine 30 mg capsule,delayed 30 mg PO BID DEPRESSION 12/15/23 04/04/24 History release fluticasone propionate 50 1 spray NASAL BID lungs/asthma 30 12/27/23 04/04/24 Rx mcg/actuation nasal days #16 grams spray,suspension pantoprazole 40 mg tablet,delayed 40 mg PO BID acid reflux 30 days 12/27/23 04/04/24 Rx release (Protonix) #60 tabs sucralfate 1 gram tablet (Carafate) 1 g PO BID stomach 30 days #60 tabs 12/27/23 04/04/24 Rx acetaminophen 500 mg tablet 1,000 mg (2 x 500 mg) PO Q8 01/25/24 04/04/24 Rx pain/inflammati #0 tabs sennosides 8.6 mg-docusate sodium 1 tab PO BID #0 tabs 02/09/24 04/04/24 Rx 50 mg tablet (Stool Softener-Stimulant Laxative) menthol 0.44 %-zinc oxide 20.6 % 1 applic topical BID PRN skin 04/05/24 04/04/24 History topical ointment (Calmoseptine) irritation metoprolol tartrate 25 mg tablet 12.5 mg PO BID 04/05/24 04/04/24 History oxycodone-acetaminophen 5 mg-325 0.5 - 1 tab PO TID PRN pain 04/05/24 Unknown History mg tablet spironolactone 25 mg tablet 25 mg PO DAILY 04/05/24 04/04/24 History zolpidem 5 mg tablet 5 mg PO QHS PRN Insomnia 04/05/24 04/04/24 History Allergy/AdvReac Type Severity Reaction Status Date / Time Iodinated Contrast Media Allergy Severe Shortness Verified 04/05/24 07:29 of breath iodine Allergy Shortness Verified 04/05/24 07:29 of breath Surgical History History of right hip hemiarthroplasty History of left heart catheterization (12/17/21) Hx of appendectomy History of total bilateral knee replacement History of prostate surgery Social History household members: spouse Smoking Status: Never smoker alcohol intake: current alcohol intake frequency: 0-2 drinks per day Alcohol type: beer, wine and hard liquor details: 1 drink per night substance use type: does not use caffeine: Yes Type: coffee Number of servings: 2 what type of physical activity do you participate in: walking frequency: daily seatbelt use: always ROS ROS ED ROS Narrative Generalized weakness x 2 years Constitutional Constitutional ED: Denies chills, fever(s) or weight loss Eyes Eyes: Denies change in vision or diplopia ENT ENT ED: Denies ear pain, rhinorrhea or sore throat Cardiovascular Cardiovascular: Denies chest pain, orthopnea, palpitations or racing heartbeat Respiratory/Chest Respiratory/Chest: Denies cough, dyspnea or orthopnea Gastrointestinal Gastrointestinal: Denies abdominal pain, diarrhea, nausea or vomiting Genitourinary Genitourinary ED: Denies dysuria, hematuria or urinary frequency Musculoskeletal Musculoskeletal: Denies arthralgias or myalgias Integumentary Denies abscess or rash Neurologic Neurologic: Denies headache(s) or weakness Psychiatric Psychiatric: Denies anxiety, depression, suicidal ideation or suicidal thoughts Endocrine Endocrinology: Denies polydipsia, polyphagia or polyuria Allergic/Immunologic Allergic/Immunologic ED: Denies mouth swelling, tongue swelling or urticaria EXAM Physical Exam Const Vital Signs: 04/05/24 07:25 04/05/24 07:31 04/05/24 07:52 Temperature 96.6 F L Temperature Source Temporal Pulse Rate 51 L Respiratory Rate 53 H 16 Respiratory Effort Normal Non-Labored Respiratory Depth Normal Respiratory Pattern Normal Blood Pressure 136/77 H Blood Pressure Mean 96 Pulse Ox 96 96 Oxygen Delivery Method Room Air 04/05/24 08:00 04/05/24 08:15 04/05/24 08:21 Temperature Temperature Source Pulse Rate 51 L Respiratory Rate 17 Respiratory Effort Respiratory Depth Respiratory Pattern Blood Pressure 144/88 H 129/57 H Blood Pressure Mean 104 78 Pulse Ox 94 94 Oxygen Delivery Method 04/05/24 08:30 04/05/24 08:45 04/05/24 09:00 Temperature Temperature Source Pulse Rate 55 L 50 L 51 L Respiratory Rate 17 14 21 H Respiratory Effort Respiratory Depth Respiratory Pattern Blood Pressure 138/82 H 142/89 H 121/76 H Blood Pressure Mean 98 103 90 Pulse Ox 93 98 Oxygen Delivery Method 04/05/24 09:15 04/05/24 09:24 04/05/24 10:00 Temperature Temperature Source Pulse Rate 50 L 50 L 55 L Respiratory Rate 19 H 18 17 Respiratory Effort Respiratory Depth Respiratory Pattern Blood Pressure 121/86 H 121/86 H Blood Pressure Mean 92 97 Pulse Ox 95 99 Oxygen Delivery Method Room Air 04/05/24 11:00 04/05/24 11:00 04/05/24 11:11 Temperature Temperature Source Pulse Rate 58 L 50 L 54 L Respiratory Rate 19 H 17 19 H Respiratory Effort Respiratory Depth Respiratory Pattern Blood Pressure 126/80 H Blood Pressure Mean 95 Pulse Ox 94 97 Oxygen Delivery Method Room Air 04/05/24 11:15 04/05/24 11:30 04/05/24 12:30 Temperature Temperature Source Pulse Rate 57 L 50 L 53 L Respiratory Rate 18 15 19 H Respiratory Effort Respiratory Depth Respiratory Pattern Blood Pressure 133/79 H 138/74 H 133/79 H Blood Pressure Mean 95 94 95 Pulse Ox 98 98 Oxygen Delivery Method Positive well nourished and well developed General Appearance ED: well developed HEENT Reports normocephalic, head/scalp atraumatic and moist mucous membranes Eyes PERRL and EOMs intact bilaterally Neck no lymphadenopathy, supple and no JVD Resp normal respiratory effort and clear to auscultation bilaterally Cardio no murmurs Rhythm: abnormal rhythm irregularly irregular GI normal to inspection, nondistended, normoactive bowel sounds and non-tender Palpation: soft Back/Spine no CVA tenderness and normal ROM Extremity normal to inspection General Extremety ED: Negative for edema General Extremity: Negative for edema Neuro oriented x3 and CN's II-XII intact bilaterally Sensorium / Orientation: alert Motor Exam: strength 5/5 throughout Psych mental status grossly normal Mood & Affect: Negative for depressed or tearful Skin no rashes or lesions noted and no wounds MDM MDM MDM Narrative Medical decision making narrative: My independent interpretation of the chest x-ray is mild vascular congestion. CT of the brain was obtained is negative. White count 11.0 hemoglobin 13.6. Creatinine is 1.79 anion gap 3 BUN of 37 troponin 133 BNP 782.4. He is not having any complaints of chest pain or shortness of breath. Urinalysis is normal. The patient's second troponin is down to 120. His previous troponins which were not troponin high-sensitivity are on the upper ends of normal. His elevated BNP is probably due to his elevated creatinine. He has not otherwise symptomatic from a CHF standpoint. His legs are not swollen more than normal. He is not dyspneic or having chest pain. Patient was able to ambulate in the adame without any difficulty. He will be discharged home with his instructions to follow-up primary care 3 to 5 days History & Record Review Discussion w/independent historian: EMS personnel, Patient and Significant other Lab Data Attestation: I reviewed the patient's lab results. Labs: Laboratory Results - last 24 hr 04/05/24 04/05/2404/05/24 08:00 08:40 09:00 WBC 11.0 RBC 4.39 L Hgb 13.6 Hct 43.7 MCV 99.5 H MCH 31.0 MCHC 31.1 L RDW Std Deviation 60.3 H RDW Coeff of [place] 16.9 H Plt Count 274 MPV 11.9 Immature Gran % (Auto) 0.300 Neut % (Auto) 63.5 Lymph % (Auto) 22.1 [place] % (Auto) 12.1 H Eos % (Auto) 1.7 Baso % (Auto) 0.3 Absolute Neuts (auto) 7.0 Absolute Lymphs (auto) 2.44 Nucleated RBC % 0 Sodium Cancelled Cancelled Potassium Cancelled Cancelled Chloride Cancelled Cancelled Carbon Dioxide Cancelled Cancelled Anion Gap Cancelled Cancelled BUN Cancelled Cancelled Creatinine Cancelled Cancelled Estim Creat Clear Calc Cancelled Cancelled Est GFR (MDRD) Af Amer Cancelled Cancelled Est GFR (MDRD) Non-Af Cancelled Cancelled BUN/Creatinine Ratio Cancelled Cancelled Glucose Cancelled Cancelled Calcium Cancelled Cancelled Total Bilirubin Cancelled Cancelled AST Cancelled Cancelled ALT Cancelled Cancelled Alkaline Phosphatase Cancelled Cancelled Troponin I High Sens Cancelled Cancelled B-Natriuretic Peptide 782.4 H Total Protein Cancelled Cancelled Albumin Cancelled Cancelled Globulin Cancelled Cancelled Albumin/Globulin Ratio Cancelled Cancelled Urine Color Yellow Urine Clarity Clear Urine pH 6.0 Ur Specific [place] 1.015 Urine Protein 30 H Urine Glucose (UA) Normal Urine Ketones Negative Urine Occult Blood Negative Urine Nitrite Negative Urine Bilirubin Negative Urine Urobilinogen Normal Ur Leukocyte Esterase 25 H Urine RBC 0 SEEN Urine WBC 0-5 SEEN Ur Squamous Epith Cells 0-5 SEEN Urine Bacteria 0 SEEN Urine Mucus 0 SEEN 04/05/24 04/05/24 09:40 13:40 WBC RBC Hgb Hct MCV MCH MCHC RDW Std Deviation RDW Coeff of [place] Plt Count MPV Immature Gran % (Auto) Neut % (Auto) Lymph % (Auto) [place] % (Auto) Eos % (Auto) Baso % (Auto) Absolute Neuts (auto) Absolute Lymphs (auto) Nucleated RBC % Sodium 140 Potassium 4.3 Chloride 110 H Carbon Dioxide 27.0 Anion Gap 3 L BUN 37 H Creatinine 1.79 H Estim Creat Clear Calc 32.72 Est GFR (MDRD) Af Amer 47 L Est GFR (MDRD) Non-Af 39 L BUN/Creatinine Ratio 20.7 H Glucose 105 Calcium 8.9 Total Bilirubin 0.90 AST 46 H ALT 74 H Alkaline Phosphatase 142 H Troponin I High Sens 133 H* 120 H B-Natriuretic Peptide Total Protein 7.1 Albumin 3.3 Globulin 3.8 Albumin/Globulin Ratio 0.9 Urine Color Urine Clarity Urine pH Ur Specific [place] Urine Protein Urine Glucose (UA) Urine Ketones Urine Occult Blood Urine Nitrite Urine Bilirubin Urine Urobilinogen Ur Leukocyte Esterase Urine RBC Urine WBC Ur Squamous Epith Cells Urine Bacteria Urine Mucus Radiography Diagnostic Testing: Clinical Impression(s) from Imaging Studies Chest X-Ray 04/05/24 08:10 IMPRESSION: Findings suggestive of a vascular congestion and CHF with blunting of the right costo phrenic angle. Increased markings at the left lung base suggestive of atelectasis and/or infiltrate. Electronically Signed: Konstantin Gonsales MD at 8:42 EDT , Brain CT 04/05/24 10:16 IMPRESSION: Chronic involutional changes of the brain. Stable examination. Electronically Signed: Konstantin Gonsales MD at 10:48 EDT , EKG Initial EKG: Attestation: I personally reviewed and interpreted this EKG as follows: Comments: Underlying atrial flutter/atrial fibrillation rhythm with ventricularly paced beats. Discharge Plan Triage Chief Complaint: Fall Other Complaint: Confusion ED Provider: Nigel Cheung Dx/Rx/DC Orders Clinical Impression: Weakness, Atrial flutter, Non-ischemic cardiomyopathy Prescriptions: No Action rosuvastatin 20 mg tablet 20 mg PO DAILY Patient Comments: take 1 tablet by mouth every morning Eliquis 2.5 mg tablet 2.5 mg PO BID folic acid 1 mg Tablet 1 mg PO BID vitamin B complex Capsule 1 cap PO BID duloxetine 30 mg capsule,delayed release(DR/EC) 30 mg PO BID fluticasone propionate 50 mcg/actuation [place],Suspension 1 spray NASAL BID 30 Days Qty: 16 0RF pantoprazole [Protonix] 40 mg tablet,delayed release (DR/EC) 40 mg PO BID 30 Days Qty: 60 0RF sucralfate [Carafate] 1 gram tablet 1 g PO BID 30 Days Qty: 60 0RF acetaminophen 500 mg Tablet 1,000 mg PO Q8 Qty: 0 0RF sennosides-docusate sodium [Stool Softener-Stimulant Laxat] 8.6-50 mg Tablet 1 tab PO BID Qty: 0 0RF spironolactone 25 mg tablet 25 mg PO DAILY oxycodone-acetaminophen 5-325 mg tablet 0.5 - 1 tab PO TID PRN (Reason: pain) zolpidem 5 mg Tablet 5 mg PO QHS PRN (Reason: Insomnia) metoprolol tartrate 25 mg Tablet 12.5 mg PO BID menthol-zinc oxide [Calmoseptine] 0.44-20.6 % Ointment 1 applic topical BID PRN (Reason: skin irritation) Protocol: *Topical Application Instructions APPLICATION INSTRUCTIONS: bilateral buttocks Primary Care Provider: Joelle Stern Referrals: Joelle Stern MD [Primary Care Provider] - 3-5 Days Print Language: Iranian Disposition Disposition: Home, Self Care
[2024-04-05 14:13] LABS: Troponin-I HS 120 pg/mL (3.0-78.0)
== END 2024-04-05 14:27 | disposition home or self-care (01) ==
PROVIDERS: Emergency Provider Emergency Medicine; PCP Internal Medicine; Visit Provider Emergency Medicine
DX: R53.1 Weakness (principal); I48.92 Unspecified atrial flutter; I48.0 Paroxysmal atrial fibrillation; I42.8 Other cardiomyopathies; N18.30 Chronic kidney disease, stage 3 unspecified; I12.9 Hypertensive chronic kidney disease with stage 1 through stage 4 chronic kidney disease, or unspecified chronic kidney disease; Z79.899 Other long term (current) drug therapy; Z79.01 Long term (current) use of anticoagulants
CPT/HCPCS: 36415; 70450; 71045; 80053; 81001; 83880; 84484; 85025; 93005; 99284; A4216

== ENCOUNTER 2024-04-14 09:29 | Observation (INO) | payer MEDICARE, SELFPAY ==
[2024-04-14] VITALS (9 sets, daily range): BP systolic 123–151; BP diastolic 69–90; PULSE 50–52; RESP 14–18; TEMP 36.2–36.6; O2SAT 94–98; BMI 26.6; BMI 25.7
--- NOTE | 2024-04-14 10:19 | CT_ITS ---
EXAM: CT CERVICAL SPINE WITHOUT INTRAVENOUS CONTRAST CLINICAL INDICATION: trauma TECHNIQUE: Helically acquired images were obtained of the cervical spine without intravenous contrast. 2D reformatted images were reviewed. This CT exam was performed using one or more of the following dose reduction techniques: automated exposure control, adjustment of the mA and/or kV according to patient size, and/or use of iterative reconstruction technique. COMPARISON: No relevant prior studies available. FINDINGS: VERTEBRAE: Loss of the normal cervical lordosis which may be due to muscle spasm or head positioning. No acute fracture or subluxation. DISCS/SPINAL CANAL/NEURAL FORAMINA: Multilevel disc space narrowing, vertebral body hypertrophy and facet arthropathy. Spinal stenosis noted at the C5-6 and C6-7 level related to broad-based disc protrusion. Multilevel neural foraminal narrowing secondary to uncinate joint spurring. SOFT TISSUES: Normal. No prevertebral soft tissue swelling. LYMPH NODES: Normal. No cervical adenopathy. LUNG APICES: Unremarkable as visualized. PLEURAL SPACE: Bilateral pleural effusions. CT/Spine Cervical without Contras IMPRESSION: 1. No acute fracture or subluxation. 2. Prominent diffuse spondylosis. 3. Bilateral pleural effusions Electronically Signed: Saw Colunga MD at 11:03 EDT ,
--- NOTE | 2024-04-14 10:20 | CT_ITS ---
EXAM: CT HEAD WITHOUT INTRAVENOUS CONTRAST CLINICAL INDICATION: head trauma TECHNIQUE: Multiple axial images were obtained of the head without intravenous contrast. This CT exam was performed using one or more of the following dose reduction techniques: automated exposure control, adjustment of the mA and/or kV according to patient size, and/or use of iterative reconstruction technique. COMPARISON: CT Head dated 04/05/2024 FINDINGS: BRAIN AND EXTRA-AXIAL SPACES: No hemorrhage or mass effect. No acute ischemia. Old right basal ganglion lacunar infarct again noted. Areas of diminished white matter density noted within both cerebral hemispheres suggestive of chronic microvascular change. Prominence of the cortical sulci and ventricles related to volume loss change. BONES/JOINTS: Normal calvarium. SINUSES: No acute sinusitis. MASTOID AIR CELLS: Normal. Clear. CT/Brain/Head without Contrast IMPRESSION: 1. No acute intracranial abnormality. 2. No interval change. Electronically Signed: Saw Colunga MD at 11:00 EDT ,
--- NOTE | 2024-04-14 11:20 | EKG12_ITS ---
Test Reason : Blood Pressure : / mmHG Vent. Rate : 049 BPM Atrial Rate : 227 BPM P-R Int : 000 ms QRS Dur : 162 ms QT Int : 550 ms P-R-T Axes : 000 -78 092 degrees QTc Int : 496 ms Ventricular-paced rhythm with intrinsic complexes Abnormal ECG Confirmed by WESLEY PINTO, HANS ([id number]), manager editorial TAN ARAMBULA ([id number]) on 04/18/2024 6:14:14 AM Referred By: Confirmed By:SARABJIT OLSON MD
[2024-04-14] MEDS: Diphth,Pertuss(Acell),Tet Vac 0.5 ML Vial IM (11:34)
--- NOTE | 2024-04-14 11:58 | RAD_ITS ---
EXAM: XR CHEST, 1 VIEW CLINICAL INDICATION: sob TECHNIQUE: Frontal view of the chest. COMPARISON: XR Chest dated 04/05/2024 FINDINGS: LUNGS AND PLEURAL SPACES: Persistent small bilateral pleural effusions and bibasilar airspace opacification. Pulmonary vascular congestion. Increasing central pulmonary density suggestive of pulmonary edema. HEART: Stable mild cardiomegaly. MEDIASTINUM: No mediastinal or hilar mass. BONES/JOINTS: No acute abnormality. TUBES, LINES AND DEVICES: Cardiac pacemaker wires remain in place. RAD/Chest 1 View (Portable) IMPRESSION: New central pulmonary edema. Persistent bibasilar pleural-parenchymal densities. Electronically Signed: Saw Colunga MD at 12:59 EDT ,
[2024-04-14 12:32] LABS: Absolute Lymphocyte Count 2.02 X10^3/uL (0.83-4.51); Absolute Neutrophil Count 6.8 X10^3/uL (2.0-7.7); Basophil# 0.02 X10^3/uL; Basophil% 0.2 % (0-1); Eosinophil# 0.07 X10^3/uL; Eosinophils% 0.7 % (0-5); Hematocrit 42.7 % (40-54); Hemoglobin 13.6 g/dL (13.0-16.5); Lymphocyte # 2.02 X10^3/ul (0.83-4.51); Lymphocyte % 20.2 % (19-41); Mean Corp Hgb Conc 31.9 g/dL (32-36); Mean Corpuscular Hgb 31.3 pg (27.0-32.0); Mean Corpuscular Volume 98.4 fL (80-94); Mean Platelet Vol. 12.1 fl (6.2-12.0); Monocyte# 0.91 X10^3/uL; Monocyte% 9.1 % (0-10); NRBC Flagged by Analyzer 0 % (0-5); Neutrophil # 6.76 X10^3/uL (2.7-7.7); Neutrophil % 67.6 % (47-70); Platelet Count 176 K/mm3 (150-450); RBC Distribution Width CV 17.2 % (11.6-14.6); RBC Distribution Width SD 62.9 fl (35.1-43.9); Red Blood Count 4.34 M/mm3 (4.6-6.2)
[2024-04-14 12:54] LABS: Anion Gap 8 (5-15); BUN 46 mg/dL (7-18); BUN/Creat Ratio 28.4 RATIO (10-20); Chloride 112 mmol/L (98-107); Creatinine, Serum 1.62 mg/dL (0.70-1.30); EST Glomerular Filtration Rate 43 mL/min (>60); Est Glom Filt Rate - Afr Amer 52 mL/min (>60); Estimated Creatinine Clearance 36.15 ml/min; Glucose 106 mg/dL (74-106); Potassium 4.3 mmol/L (3.5-5.1); Sodium Level 141 mmol/L (136-145); Troponin-I HS 162 pg/mL (3.0-78.0)
--- NOTE | 2024-04-14 12:55 | ED.VIS.FALL ---
HPI HPI - Fall History of Present Illness Chief Complaint: Fall Informant: patient Narrative Narrative: Patient is an 84-year-old male with history of nonischemic cardiomyopathy, LVH, sick sinus syndrome (status post pacemaker), GERD and atrial fibrillation presenting after a fall. Patient reportedly fell going to the bathroom this morning. Patient is quite groggy but states that he took an additional Ambien last night which is what they think is causing the grogginess. Son and [id number] now at the bedside. They informed me that patient took his normal Ambien which has been on for years at 11 PM but then apparently took another 1 at 3 AM. At 6 AM he needed help get out of the bed. Family helped him but he was very out of it and unsteady. Family notes however this is his fourth fall requiring EMS assistance over the past 2 weeks. He lives home with his and the family does not think he is safe to be at home anymore. They also note that he has a history of heart failure and has had increased swelling and increased absent on exertion as well as exercise intolerance over the past few weeks. Patient did strike his head when he fell. He is on Eliquis per chart review. No recent medication changes reported. Patient has no other complaints at this time. Tetanus Immunization: Unknown [facility] Medical History Chronic anticoagulation History of cardiac pacemaker Paroxysmal atrial fibrillation Pacemaker Sick sinus syndrome CKD (chronic kidney disease), stage III HTN (hypertension) Hyperkalemia, diminished renal excretion Atrial flutter HFrEF (heart failure with reduced ejection fraction) Obstructive sleep apnea Left bundle branch block (LBBB) Fatigue Dyspnea LVH (left ventricular hypertrophy) Left ventricular diastolic dysfunction Non-ischemic cardiomyopathy History of hay fever Prostate cancer Hyperlipidemia Depression Home Medications ?Medication ?Instructions ?Recorded ?Last Taken ?Type folic acid 1 mg tablet 1 mg PO BID supplement 10/11/21 04/04/24 History vitamin B complex 1 cap PO BID vitamin 10/11/21 04/13/24 History rosuvastatin 20 mg tablet 20 mg PO DAILY cholesterol 12/16/21 04/13/24 History apixaban 2.5 mg tablet (Eliquis) 2.5 mg PO BID blood thinner 03/23/23 04/13/24 History duloxetine 30 mg capsule,delayed 30 mg PO BID DEPRESSION 12/15/23 04/13/24 History release fluticasone propionate 50 1 spray NASAL BID lungs/asthma 30 12/27/23 04/04/24 Rx mcg/actuation nasal days #16 grams spray,suspension pantoprazole 40 mg tablet,delayed 40 mg PO BID acid reflux 30 days 12/27/23 04/04/24 Rx release (Protonix) #60 tabs sucralfate 1 gram tablet (Carafate) 1 g PO BID stomach 30 days #60 tabs 12/27/23 04/13/24 Rx acetaminophen 500 mg tablet 1,000 mg (2 x 500 mg) PO Q8 01/25/24 04/13/24 Rx pain/inflammati #0 tabs menthol 0.44 %-zinc oxide 20.6 % 1 applic topical BID PRN skin 04/05/24 04/04/24 History topical ointment (Calmoseptine) irritation spironolactone 25 mg tablet 25 mg PO DAILY 04/05/24 04/13/24 History zolpidem 5 mg tablet 5 mg PO QHS PRN Insomnia 04/05/24 04/13/24 History Allergy/AdvReac Type Severity Reaction Status Date / Time Iodinated Contrast Media Allergy Severe Shortness Verified 04/14/24 09:39 of breath iodine Allergy Shortness Verified 04/14/24 09:39 of breath Surgical History History of right hip hemiarthroplasty History of left heart catheterization (12/17/21) Hx of appendectomy History of total bilateral knee replacement History of prostate surgery Social History household members: spouse Smoking Status: Never smoker alcohol intake: current alcohol intake frequency: 0-2 drinks per day Alcohol type: beer, wine and hard liquor details: 1 drink per night substance use type: does not use caffeine: Yes Type: coffee Number of servings: 2 what type of physical activity do you participate in: walking frequency: daily seatbelt use: always ROS ROS ED Review of Systems ROS Unobtainable: due to mental status EXAM Physical Exam Const Vital Signs: 04/14/24 09:29 04/14/24 09:30 04/14/24 11:44 Temperature 97.8 F Temperature Source Temporal Pulse Rate 50 L Respiratory Rate 16 Respiratory Effort Normal Non-Labored Respiratory Depth Normal Respiratory Pattern Normal Blood Pressure 134/87 H 127/84 H Blood Pressure Mean 102 98 Pulse Ox 94 94 Oxygen Delivery Method Room Air Room Air Room Air 04/14/24 13:00 Temperature 97.6 F L Temperature Source Temporal Pulse Rate 50 L Respiratory Rate 14 Respiratory Effort Respiratory Depth Respiratory Pattern Blood Pressure 151/90 H Blood Pressure Mean 110 Pulse Ox 94 Oxygen Delivery Method Room Air Positive well nourished and well developed General Appearance ED: well developed and NAD HEENT Reports TM's normal bilaterally HEENT Narrative: No signs of basilar skull fracture. No cephalhematoma appreciated. trauma Eyes PERRL and EOMs intact bilaterally Neck full ROM and supple General: Negative for tenderness Chest Wall inspection of chest normal and palpation of chest normal Resp normal respiratory effort Auscultation: diminished lung sounds bilateral lower Cardio regular rhythm Rate: bradycardia GI non-tender and non-distended Palpation: soft; Negative for guarding Extremity Extremity Narrative: Pelvis is stable. No rotational deformity of the extremities. 2+ bilateral radial and DP pulses. Pitting edema of the extremities throughout. Neuro Neuro Narrative: Patient is hard of hearing and is somnolent. Intermittently falls asleep but when he can hear my question he does tend to answered appropriately. Is a little bit confused about the events over the last 24 hours. No focal neurologic deficits appreciated. Marisela Coma Scale: document GCS findings Spontaneous Obeys Commands Confused 14 Psych mental status grossly normal Skin Skin Narrative: 2 cm partial-thickness abrasion to the top of the scalp. No gaping of the skin. MDM MDM MDM Narrative Medical decision making narrative: Patient presents for evaluation after a fall. Sounds like patient took an extra Ambien last night which elicited the fall however family also states he has been more weak generally and short of breath with frequent falls. Family does not feel that he is safe to be at home right now because she is just lives at home with his elderly . Patient does have signs of a head injury and is on anticoagulation so CT of the brain is obtained to rule out intracranial hemorrhage. This is negative for any acute process. Localized wound care is applied however patient does not require a laceration repair as a wound is more superficial. Patient CBC shows a normal white blood cell count and normal hemoglobin. His platelets are also normal. His BMP shows chronic elevation of his creatinine of 1.62 and he has an elevation of his high since he troponin of 162. Of note on 04/05 when patient was evaluated for weakness has had since troponin at that time was 133. This appears to be near his baseline. Patient does not complain of any chest pain. Patient does appear to be fluid overloaded. CT of the cervical spine commented on bilateral pleural effusion. Chest x-ray also shows a central pulmonary vascular congestion which is reviewed by myself as well as radiology. This patient is somnolence with signs of fluid overload I did obtain an ABG to rule out hypercapnia. Patient has a normal pH but is mildly hypoxic. Is placed on supplemental oxygen. Patient be admitted for his falls, debility and CHF exacerbation. Is given IV Lasix in the emergency room. Family at the bedside also agreeable with this plan of care. On repeat evaluation patient does have some improvement of his cognition is suspect the Ambien is wearing off. History & Record Review Discussion w/independent historian: Family (See HPI) Lab Data Attestation: I reviewed the patient's lab results. Labs: Laboratory Results - last 24 hr 04/14/24 04/14/24 12:20 13:02 WBC 10.0 RBC 4.34 L Hgb 13.6 Hct 42.7 MCV 98.4 H MCH 31.3 MCHC 31.9 L RDW Std Deviation 62.9 H RDW Coeff of [place] 17.2 H Plt Count 176 MPV 12.1 H Immature Gran % (Auto) 2.200 H Neut % (Auto) 67.6 Lymph % (Auto) 20.2 [place] % (Auto) 9.1 Eos % (Auto) 0.7 Baso % (Auto) 0.2 Absolute Neuts (auto) 6.8 Absolute Lymphs (auto) 2.02 Nucleated RBC % 0 Sodium 141 Potassium 4.3 Chloride 112 H Carbon Dioxide 21.0 Anion Gap 8 BUN 46 H Creatinine 1.62 H Estim Creat Clear Calc 36.15 Est GFR (MDRD) Af Amer 52 L Est GFR (MDRD) Non-Af 43 L BUN/Creatinine Ratio 28.4 H Glucose 106 Calcium 9.0 Phosphorus 3.5 Magnesium 2.4 Troponin I High Sens 162 H* Urine Color Yellow Urine Clarity Clear Urine pH 5.0 Ur Specific [place] 1.015 Urine Protein 15 H Urine Glucose (UA) Normal Urine Ketones Negative Urine Occult Blood Negative Urine Nitrite Negative Urine Bilirubin Negative Urine Urobilinogen Normal Ur Leukocyte Esterase Negative Urine RBC 0 SEEN Urine WBC 0 SEEN Ur Squamous Epith Cells 0 SEEN Urine Bacteria 0 SEEN Urine Mucus 0 SEEN ABG Data ABG results: ABG 04/14/24 13:29 Specimen Type ART Sample Site R Radial pH 7.40 Bicarbonate Actual 20.6 L Total CO2 22 Base Excess -4 L O2 Saturation 94 L ABG pCO2 33.3 L ABG pO2 69 L Patrick Test Positive O2 Delivery Device Room Air Vent Mode Not entered Radiography Chest X-Ray - ED: 1 View, Read by ED Physician, Read by Radiologist and CHF Diagnostic Testing: Clinical Impression(s) from Imaging Studies Cervical Spine CT 04/14/24 10:19 IMPRESSION: 1. No acute fracture or subluxation. 2. Prominent diffuse spondylosis. 3. Bilateral pleural effusions Electronically Signed: Saw Colunga MD at 11:03 EDT , Brain CT 04/14/24 10:20 IMPRESSION: 1. No acute intracranial abnormality. 2. No interval change. Electronically Signed: Saw Colunga MD at 11:00 EDT , Chest X-Ray 04/14/24 11:58 IMPRESSION: New central pulmonary edema. Persistent bibasilar pleural-parenchymal densities. Electronically Signed: Saw Colunga MD at 12:59 EDT , Rhythm Strip Rhythm Strip: Ventricular paced rhythm Rate: 49 Ectopy: None EKG Initial EKG: Attestation: I personally reviewed and interpreted this EKG as follows: Interpretation: Paced Comments: Ventricular paced rhythm at a rate of 49 beats per minutes with intrinsic complexes present as well Left axis deviation Normal ST segments Underlying atrial fibrillation present Prior EKG tracings: available for review Prior: Unchanged Management Discussion w/another healthcare provider: Hospitalist Discharge Plan Dx/Rx/DC Orders Clinical Impression: Acute on chronic HFrEF (heart failure with reduced ejection fraction), Non-ischemic cardiomyopathy, Debility, Closed head injury, Abrasion of scalp, 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
[2024-04-14 13:06] LABS: Bacteria 0 SEEN /hpf (None Seen); Mucous, Urine 0 SEEN /hpf (<or=2+); Red Blood Cells-Urine 0 SEEN /hpf (0-5); Squamous Epithelial Cells - UA 0 SEEN /hpf (0-5); White Blood Cells 0 SEEN /hpf (0-5)
[2024-04-14 13:16] LABS: Color, Urine Yellow (Yellow); Glucose, Dipstick Normal (Normal); Ketone-Dipstick Negative (Negative); Leukocyte Esterase-Dipstick Negative /ul (Negative); Nitrite-Dipstick Negative (Negative); Occult Blood-Urine Negative /ul (Negative); Protein-Dipstick 15 mg/dl (Negative); Specific Gravity, Urine 1.015 (1.002-1.030); Urine Bilirubin Dipstick Negative (Negative); Urine Clarity Clear (Clear); Urine Urobilinogen Normal (Normal)
[2024-04-14 13:32] LABS: Allen Test Positive; Base Excess -4 mmol/L (-2 to +2); Bicarbonate 20.6 mmol/L (22-26); Blood Gas Specimen Type ART; Mode Not entered; O2 Delivery Device Room Air; PO2 69 mmHG (75-100); SITE R Radial; SO2 94 % (95-99); Total Carbon Dioxide 22 mmol/L; pCO2 33.3 mmHg (35-45)
--- NOTE | 2024-04-14 13:46 | PCM.HP.STD ---
HPI - General General Date of Admission: 04/14/24 Date of Service: 04/14/24 Chief Complaint: Recurrent fall 4 times in the Shortness of breath worsening for 3 days HPI Narrative BERNY INFANTE, is a 84 M with multiple comorbidities was brought to ER by EMS after he fell down in the bathroom. As per the patient's son near the bedside he fell 4 times over the past 2 weeks. Reportedly, patient took Ambien at 11 PM and then another at 3 AM as a sleep aid and then he got out of bed at 6 AM was unsteady and fell in the bathroom in supine position. He hit his head but no LOC. ED physician took care of it was not being laceration to require sutures. Patient also has chronic heart failure and on water pill. His son who lives in [facility], present in the room states he found that he pauses during conversation and tails off his expiration. Getting more short of breath on exertion last 3 days. Patient has been in the hospital in first week of January for right hip fracture, HFrEF with hypotensive episode, SYLVIA on CKD and severe anemia and was discharged to TCU. In ED, EKG shows ventricular paced rhythm at 491 bpm, QTc 496 ms. Vitals, labs and imagings reviewed and discussed in assessment and plan in detail [facility] Medical History Chronic anticoagulation History of cardiac pacemaker Paroxysmal atrial fibrillation Pacemaker Sick sinus syndrome CKD (chronic kidney disease), stage III HTN (hypertension) Hyperkalemia, diminished renal excretion Atrial flutter HFrEF (heart failure with reduced ejection fraction) Obstructive sleep apnea Left bundle branch block (LBBB) Fatigue Dyspnea LVH (left ventricular hypertrophy) Left ventricular diastolic dysfunction Non-ischemic cardiomyopathy History of hay fever Prostate cancer Hyperlipidemia Depression Home Medications ?Medication ?Instructions ?Recorded ?Last Taken ?Type folic acid 1 mg tablet 1 mg PO BID supplement 10/11/21 04/13/24 History vitamin B complex 1 cap PO BID vitamin 10/11/21 04/13/24 History rosuvastatin 20 mg tablet 20 mg PO DAILY cholesterol 12/16/21 04/13/24 History apixaban 2.5 mg tablet (Eliquis) 2.5 mg PO BID blood thinner 03/23/23 04/13/24 History duloxetine 30 mg capsule,delayed 30 mg PO BID DEPRESSION 12/15/23 04/13/24 History release fluticasone propionate 50 1 spray NASAL BID lungs/asthma 30 12/27/23 04/13/24 Rx mcg/actuation nasal days #16 grams spray,suspension pantoprazole 40 mg tablet,delayed 40 mg PO BID acid reflux 30 days 12/27/23 04/13/24 Rx release (Protonix) #60 tabs sucralfate 1 gram tablet (Carafate) 1 g PO BID stomach 30 days #60 tabs 12/27/23 04/13/24 Rx acetaminophen 500 mg tablet 1,000 mg (2 x 500 mg) PO Q8 01/25/24 04/13/24 Rx pain/inflammati #0 tabs sennosides 8.6 mg-docusate sodium 1 tab PO BID #0 tabs 02/09/24 04/13/24 Rx 50 mg tablet (Stool Softener-Stimulant Laxative) menthol 0.44 %-zinc oxide 20.6 % 1 applic topical BID PRN skin 04/05/24 04/13/24 History topical ointment (Calmoseptine) irritation metoprolol tartrate 25 mg tablet 12.5 mg PO BID 04/05/24 04/13/24 History oxycodone-acetaminophen 5 mg-325 0.5 - 1 tab PO TID PRN pain 04/05/24 04/13/24 History mg tablet spironolactone 25 mg tablet 25 mg PO DAILY 04/05/24 04/13/24 History zolpidem 5 mg tablet 5 mg PO QHS PRN Insomnia 04/05/24 04/13/24 History Allergy/AdvReac Type Severity Reaction Status Date / Time Iodinated Contrast Media Allergy Severe Shortness Verified 04/14/24 09:39 of breath iodine Allergy Shortness Verified 04/14/24 09:39 of breath Surgical History History of right hip hemiarthroplasty History of left heart catheterization (12/17/21) Hx of appendectomy History of total bilateral knee replacement History of prostate surgery Social History household members: spouse Smoking Status: Never smoker alcohol intake: current alcohol intake frequency: 0-2 drinks per day Alcohol type: beer, wine and hard liquor details: 1 drink per night substance use type: does not use caffeine: Yes Type: coffee Number of servings: 2 what type of physical activity do you participate in: walking frequency: daily seatbelt use: always ROS ROS Narrative Constitutional: Reports chronic fatigue and weakness. No fever. HEENT: Reports systems reviewed and no addt'l complaints, except as documented Respiratory/Chest: Chronic dyspnea on exertion CVS: Denies chest pain pressure or tightness. Chronic heart failure. Gastrointestinal: Denies coffee ground emesis, hematemesis or vomiting Genitourinary: Denies burning urination or new urinary tract symptoms Musculoskeletal: Recurrent fall as described in HPI. Degenerative arthritis Neurologic: Denies seizure-like symptoms. No acute focal weakness or strokelike symptoms skin: Mild laceration on top of head Endocrinology: Reports systems reviewed and no addt'l complaints, except as documented Hematologic/Lymphatic: Reports systems reviewed and no addt'l complaints, except as documented Rest 14 ROS are negative except as mentioned in HPI Vital Signs Vital Signs Vital Signs: 04/14/24 09:29 04/14/24 09:30 04/14/24 11:44 Temperature 97.8 F Temperature Source Temporal Pulse Rate 50 L Respiratory Rate 16 Respiratory Effort Normal Non-Labored Respiratory Depth Normal Respiratory Pattern Normal Blood Pressure 134/87 H 127/84 H Blood Pressure Mean 102 98 Pulse Ox 94 94 Oxygen Delivery Method Room Air Room Air Room Air 04/14/24 13:00 Temperature 97.6 F L Temperature Source Temporal Pulse Rate 50 L Respiratory Rate 14 Respiratory Effort Respiratory Depth Respiratory Pattern Blood Pressure 151/90 H Blood Pressure Mean 110 Pulse Ox 94 Oxygen Delivery Method Room Air Weight Weight: 191 lb 5.78 oz Body Mass Index (BMI) 26.6 Physical Exam Narrative General: Alert, Oriented x3, Cooperative. BMI 26.7 kg/m?. Mild overweight HEENT: Bilateral hearing impairment atraumatic, PERRLA, EOMI, Normocephalic Oral: Oral mucosa dry. No Gingival or Mucosal Lesions/ Ulcerations Neck: Supple, No JVD, Negative Carotid Bruits Chest wall/Lungs: Air entry diminished in bilateral lung bases. Bilateral fine crepitations present diffusely Cardiovascular: V paced rhythm, right-sided pacemaker. Normal S1, Normal S2, No M/G/R Abdomen: Bowel Sounds Present, Soft, Non Tender, Non-Distended : No dysuria. No renal angle tenderness. No suprapubic tenderness. Extremities: No edema, Capillary Refill Less than 3 Seconds Skin: No rashes, No breakdown Musculoskeletal: Bilateral TKR. Right hip hemiarthroplasty. No acute tenderness to Palpation of Joints or Extremities. ROM chronically reduced because of degenerative arthritis Neurological: Cranial nerves II-XII grossly intact, DTR 2+/4. No acute focal neurological deficit. Psych/Mental Status: Flat affect. Results Lab / Micro Data 04/14/24 12:20 04/14/24 12:20 Labs: Laboratory Results - last 24 hr 04/14/24 12:20: WBC 10.0, RBC 4.34 L, Hgb 13.6, Hct 42.7, MCV 98.4 H, MCH 31.3, MCHC 31.9 L, RDW Std Deviation 62.9 H, RDW Coeff of [place] 17.2 H, Plt Count 176, MPV 12.1 H, Immature Gran % (Auto) 2.200 H, Neut % (Auto) 67.6, Lymph % (Auto) 20.2, [place] % (Auto) 9.1, Eos % (Auto) 0.7, Baso % (Auto) 0.2, Absolute Neuts (auto) 6.8, Absolute Lymphs (auto) 2.02, Nucleated RBC % 0, Sodium 141, Potassium 4.3, Chloride 112 H, Carbon Dioxide 21.0, Anion Gap 8, BUN 46 H, Creatinine 1.62 H, Estim Creat Clear Calc 36.15, Est GFR (MDRD) Af Amer 52 L, Est GFR (MDRD) Non-Af 43 L, BUN/Creatinine Ratio 28.4 H, Glucose 106, Calcium 9.0, Troponin I High Sens 162 H* 04/14/24 13:02: Urine Color Yellow, Urine Clarity Clear, Urine pH 5.0, Ur Specific [place] 1.015, Urine Protein 15 H, Urine Glucose (UA) Normal, Urine Ketones Negative, Urine Occult Blood Negative, Urine Nitrite Negative, Urine Bilirubin Negative, Urine Urobilinogen Normal, Ur Leukocyte Esterase Negative, Urine RBC 0 SEEN, Urine WBC 0 SEEN, Ur Squamous Epith Cells 0 SEEN, Urine Bacteria 0 SEEN, Urine Mucus 0 SEEN ABG Data ABG results: ABG 04/14/24 13:29 Specimen Type ART Sample Site R Radial pH 7.40 Bicarbonate Actual 20.6 L Total CO2 22 Base Excess -4 L O2 Saturation 94 L ABG pCO2 33.3 L ABG pO2 69 L Patrick Test Positive O2 Delivery Device Room Air Vent Mode Not entered Imaging Radiology Impression Cervical Spine CT 04/14/24 10:19 IMPRESSION: 1. No acute fracture or subluxation. 2. Prominent diffuse spondylosis. 3. Bilateral pleural effusions Electronically Signed: Saw Colunga MD at 11:03 EDT , Brain CT 04/14/24 10:20 IMPRESSION: 1. No acute intracranial abnormality. 2. No interval change. Electronically Signed: Saw Colunga MD at 11:00 EDT , Chest X-Ray 04/14/24 11:58 IMPRESSION: New central pulmonary edema. Persistent bibasilar pleural-parenchymal densities. Electronically Signed: Saw Colunga MD at 12:59 EDT , Assessment & Plan Assessment/Plan (1) Acute on chronic HFrEF (heart failure with reduced ejection fraction): (2) Debility: PLAN: Plan This is a 84-year-old male is brought by EMS after acute on recurrent fall, fatigue and acute on chronic shortness of breath 1. Acute debility due to multiple recurrent fall recently, with history of bilateral TKR and right hip hemiarthroplasty in January 2024: Patient is being admitted in PCU for CHF exacerbation. PT and OT, lead case manager, pain control and might need rehab placement. 2. Acute on chronic HFrEF: Chest x-ray initially reviewed and shows pulmonary congestion/new central pulmonary edema. The patient recently had TTE on 12/24/2023 which showed worsening of EF from previous 2054 to 25% with severe global hypokinesis. No need for repeat echo. Patient on discharged on guideline directed medical therapy with beta-pilar, ARB, spironolactone and loop diuretic treatment but home medications does not show DANA/ARB/Entresto. Patient was evaluated by fitter welder at that time. Started on Lasix 40 mg IV twice daily in ER and continued. Heart failure core measures including intake and output, fluid restriction less than 1500 mL, daily weight monitoring, kidney and electrolytes monitoring. ABG 7.40/33/69 on room air. Echo December 2023 Interpretation Summary Severe concentric left ventricular hypertrophy. The left ventricular ejection fraction is 25 %. Diastolic function is indeterminate. There is moderate biatrial dilatation. 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 Right ventricular systolic pressure estimated to be 50 mmHg. Small pericardial effusion. 3. Elevated troponin, acute myocardial injury probably from increased cardiac demand/demand ischemia: Patient had elevated troponin in the past. His troponin was 133 and 120 in April 05, 2024 First troponin 162. Cycle cardiac enzymes. Patient does not have chest pain or pressure therefore it is not non-STEMI 4. CKD stage III: Patient baseline creatinine runs around 1.5-1.6, fluctuates with the dose of diuretic and kidney perfusion. BUN/creatinine today 46/1.62. On baseline. Monitor kidney function and electrolytes 4. Mild chronic anemia: Patient hemoglobin has been around 11 to 12 g. Currently creatinine 13.6 in March probably from hemoconcentration. 6. Paroxysmal A-fib: Continue home Eliquis 2.5 mg twice daily. Heart rate is controlled. 7. Sick sinus syndrome status post pacemaker 8. Hypertension: Blood pressure is controlled. Monitor BP and titrate antihypertensive medications accordingly. 9. Dyslipidemia on statin. 10. Depression: On home duloxetine. 11. GERD: On PPI DVT prophylaxis: On Eliquis 2.5 mg twice daily Living will/advanced directive/end of life care: Patient does have living will or advanced directive. Patient's son is power of attorney lawyer for health who is accompanied the patient in ED. After discussion of benefits/risks procedures involved with full code, DNR CC arrest and DNR CC, the patient and his son opted for DNR CC arrest with no intubation Patient doesn't want artificial life support including intubation, tube feed, ventilator and/chest compression, central venous catheter, vasopressor and DC shock if needed Total time spent in [id number] encounter in discussion of advanced directive 17 minutes. Laboratory Results 04/14/24 12:20: WBC 10.0, RBC 4.34 L, Hgb 13.6, Hct 42.7, MCV 98.4 H, MCH 31.3, MCHC 31.9 L, RDW Std Deviation 62.9 H, RDW Coeff of [place] 17.2 H, Plt Count 176, MPV 12.1 H, Immature Gran % (Auto) 2.200 H, Neut % (Auto) 67.6, Lymph % (Auto) 20.2, [place] % (Auto) 9.1, Eos % (Auto) 0.7, Baso % (Auto) 0.2, Absolute Neuts (auto) 6.8, Absolute Lymphs (auto) 2.02, Nucleated RBC % 0, Sodium 141, Potassium 4.3, Chloride 112 H, Carbon Dioxide 21.0, Anion Gap 8, BUN 46 H, Creatinine 1.62 H, Estim Creat Clear Calc 36.15, Est GFR (MDRD) Af Amer 52 L, Est GFR (MDRD) Non-Af 43 L, BUN/Creatinine Ratio 28.4 H, Glucose 106, Calcium 9.0, Troponin I High Sens 162 H* 04/14/24 13:02: Urine Color Yellow, Urine Clarity Clear, Urine pH 5.0, Ur Specific [place] 1.015, Urine Protein 15 H, Urine Glucose (UA) Normal, Urine Ketones Negative, Urine Occult Blood Negative, Urine Nitrite Negative, Urine Bilirubin Negative, Urine Urobilinogen Normal, Ur Leukocyte Esterase Negative, Urine RBC 0 SEEN, Urine WBC 0 SEEN, Ur Squamous Epith Cells 0 SEEN, Urine Bacteria 0 SEEN, Urine Mucus 0 SEEN 04/14/24 13:29: Specimen Type ART, Sample Site R Radial, pH 7.40, Bicarbonate Actual 20.6 L, Total CO2 22, Base Excess -4 L, O2 Saturation 94 L, ABG pCO2 33.3 L, ABG pO2 69 L, Patrick Test Positive, O2 Delivery Device Room Air, Vent Mode Not entered Clinical Impression(s) from Imaging Studies Cervical Spine CT 04/14/24 10:19 IMPRESSION: 1. No acute fracture or subluxation. 2. Prominent diffuse spondylosis. 3. Bilateral pleural effusions Brain CT 04/14/24 10:20 IMPRESSION: 1. No acute intracranial abnormality. 2. No interval change. Chest X-Ray 04/14/24 11:58 IMPRESSION: New central pulmonary edema. Persistent bibasilar pleural-parenchymal densities. Electronically Signed: Saw Colunga MD at 12:59 EDT , Charges/Coding Visit Charges Inpatient E&M: 30017 Init Hosp L3 Procedures Hospitalists Procedures: 23627 Advncd Care Plan 30 Min
[2024-04-14] MEDS: Furosemide 40 MG/4 ML Vial IV ×2 (14:15→17:21)
[2024-04-14 14:59] LABS: Magnesium 2.4 mg/dL (1.6-2.6); Phosphorus 3.5 mg/dL (2.5-4.9)
--- NOTE | 2024-04-14 15:41 | CPS ---
patient family to bring in home bipap.
[2024-04-14 16:15] LABS: Troponin-I HS 164 pg/mL (3.0-78.0)
[2024-04-14] MEDS: 0.9% Saline Lock 10 ML Syringe IV (17:21)
[2024-04-14 19:15] LABS: Troponin-I HS 162 pg/mL (3.0-78.0)
--- NOTE | 2024-04-14 19:53 | CPS ---
set up pt own bipap -added distilled water
[2024-04-14] MEDS: Fluticasone 0.05% 1 SPRAY NASAL.SRY NASAL (21:29)
[2024-04-14] MEDS: APIXABAN 2.5 MG TABLET (WCH) PO (21:29)
[2024-04-14] MEDS: DULoxetine Hcl 30 MG Capsule PO (21:29)
[2024-04-14] MEDS: Pantoprazole Sodium 40 MG Tablet PO (21:29)
[2024-04-14] MEDS: Senna/Docusate Sodium 1 Tablet PO (21:30)
[2024-04-14] MEDS: Folic Acid 1 MG Tablet PO (21:30)
[2024-04-15 03:00] VITALS: BP 133/82; PULSE 51; RESP 18; TEMP 36; O2SAT 99
[2024-04-15 06:00] VITALS: BMI 25.6
[2024-04-15 07:24] VITALS: O2SAT 95
[2024-04-15 09:10] VITALS: BP 111/61; PULSE 56; RESP 18; TEMP 36.3; O2SAT 99
[2024-04-15] MEDS: Folic Acid 1 MG Tablet PO ×2 (09:12→17:25)
[2024-04-15] MEDS: Pantoprazole Sodium 40 MG Tablet PO ×2 (09:12→21:03)
[2024-04-15] MEDS: Spironolactone 25 MG Tablet PO (09:12)
[2024-04-15] MEDS: Senna/Docusate Sodium 1 Tablet PO ×2 (09:12→21:04)
[2024-04-15] MEDS: DULoxetine Hcl 30 MG Capsule PO ×2 (09:12→21:03)
[2024-04-15] MEDS: Atorvastatin Calcium 40 MG Tablet PO (09:13)
[2024-04-15] MEDS: APIXABAN 2.5 MG TABLET (WCH) PO ×2 (09:13→21:03)
[2024-04-15] MEDS: Fluticasone 0.05% 1 SPRAY NASAL.SRY NASAL ×2 (09:14→20:59)
[2024-04-15] MEDS: Furosemide 40 MG/4 ML Vial IV ×2 (09:14→17:25)
[2024-04-15 15:21] VITALS: BP 109/64; PULSE 51; RESP 16; TEMP 36.2; O2SAT 96
[2024-04-15 16:06] LABS: Absolute Neutrophil Count 7.2 X10^3/uL (2.0-7.7); Basophil# 0.03 X10^3/uL; Basophil% 0.3 % (0-1); Eosinophil# 0.18 X10^3/uL; Eosinophils% 1.9 % (0-5); Hematocrit 46.2 % (40-54); Hemoglobin 14.5 g/dL (13.0-16.5); Lymphocyte % 16.5 % (19-41); Mean Corp Hgb Conc 31.4 g/dL (32-36); Mean Corpuscular Hgb 30.8 pg (27.0-32.0); Mean Corpuscular Volume 98.1 fL (80-94); Mean Platelet Vol. 11.7 fl (6.2-12.0); Monocyte# 0.66 X10^3/uL; Monocyte% 6.8 % (0-10); NRBC Flagged by Analyzer 0 % (0-5); Neutrophil % 74.4 % (47-70); Platelet Count 186 K/mm3 (150-450); RBC Distribution Width CV 16.8 % (11.6-14.6); RBC Distribution Width SD 60.2 fl (35.1-43.9); Red Blood Count 4.71 M/mm3 (4.6-6.2); White Blood Count 9.7 K/mm3 (4.4-11.0)
--- NOTE | 2024-04-15 16:11 | PCM.PN.HOSP ---
Reason for Visit Reason for Visit: Diagnoses Acute on chronic systolic (congestive) heart failure (04/14/24) Other malaise (04/14/24) Objective Data Objective Data Vital Signs: Vital Signs Temp Pulse Resp BP Pulse Ox O2 Del Method 97.2 F L 51 L 16 109/64 96 Room Air 04/15/24 15:21 04/15/24 15:21 04/15/24 15:21 04/15/24 15:21 04/15/24 15:21 04/15/24 15:21 Oxygen Delivery Method Room Air Weight: 183 lb 10.321 oz Body Mass Index (BMI) 25.6 Intake & Output: Intake and Output for Last 24 Hours 04/13/24 04/14/24 04/15/24 23:59 23:59 23:59 Intake Total 400 / 640 840 / 840 Output Total 980 / 2080 2100 / 2100 Balance -580 / -1440 -1260 / -1260 Lab / Micro Data 04/15/24 15:53 04/14/24 12:20 Labs: Laboratory Results - last 24 hr 04/14/24 15:35: Troponin I High Sens 164 H* 04/14/24 18:30: Troponin I High Sens 162 H* 04/15/24 15:53: WBC 9.7, RBC 4.71, Hgb 14.5, Hct 46.2, MCV 98.1 H, MCH 30.8, MCHC 31.4 L, RDW Std Deviation 60.2 H, RDW Coeff of [place] 16.8 H, Plt Count 186, MPV 11.7, Immature Gran % (Auto) 0.100, Neut % (Auto) 74.4 H, Lymph % (Auto) 16.5 L, [place] % (Auto) 6.8, Eos % (Auto) 1.9, Baso % (Auto) 0.3, Absolute Neuts (auto) 7.2, Absolute Lymphs (auto) 1.60, Nucleated RBC % 0 Rhythm Strip Rhythm Strip: Ventricular paced rhythm Rate: 49 Ectopy: None Physical Exam Narrative Seen and examined. SOB is imoroved. No chest pain/pressure or tightness. Physical exam General: Alert, Oriented x3, Cooperative. BMI 26.7 kg/m?. Mild overweight HEENT: Bilateral hearing impairment atraumatic, PERRLA, EOMI, Normocephalic Oral: Oral mucosa dry. No Gingival or Mucosal Lesions/ Ulcerations Neck: Supple, No JVD, Negative Carotid Bruits Chest wall/Lungs: Air entry diminished in bilateral lung bases. Lungs sound clear. No crepts. Cardiovascular: V paced rhythm, right-sided pacemaker. Normal S1, Normal S2, No M/G/R Abdomen: Bowel Sounds Present, Soft, Non Tender, Non-Distended : No dysuria. No renal angle tenderness. No suprapubic tenderness. Extremities: No edema, Capillary Refill Less than 3 Seconds Skin: No rashes, No breakdown Musculoskeletal: Bilateral TKR. Right hip hemiarthroplasty. No acute tenderness to Palpation of Joints or Extremities.degenerative arthritis Neurological: Cranial nerves II-XII grossly intact, DTR 2+/4. No acute focal neurological deficit. Psych/Mental Status: Flat affect. Assessment & Plan Assessment/Plan (1) Acute on chronic HFrEF (heart failure with reduced ejection fraction): (2) Debility: PLAN: Plan This is a 84-year-old male is brought by EMS after acute on recurrent fall, fatigue and acute on chronic shortness of breath 1. Acute debility due to multiple recurrent fall recently, with history of bilateral TKR and right hip hemiarthroplasty in January 2024: Patient is being admitted in PCU for CHF exacerbation. PT and OT, medical case manager, pain control and might need rehab placement. 04/15: Being evaluated by PT AND OT. 2. Acute on chronic HFrEF: Chest x-ray initially reviewed and shows pulmonary congestion/new central pulmonary edema. The patient recently had TTE on 12/24/2023 which showed worsening of EF from previous 2054 to 25% with severe global hypokinesis. No need for repeat echo. Patient on discharged on guideline directed medical therapy with beta-pilar, ARB, spironolactone and loop diuretic treatment but home medications does not show DANA/ARB/Entresto. Patient was evaluated by installer interior assemblies at that time. Started on Lasix 40 mg IV twice daily in ER and continued. Heart failure core measures including intake and output, fluid restriction less than 1500 mL, daily weight monitoring, kidney and electrolytes monitoring. ABG 7.40/33/69 on room air. Echo December 2023 Interpretation Summary Severe concentric left ventricular hypertrophy. The left ventricular ejection fraction is 25 %. Diastolic function is indeterminate. There is moderate biatrial dilatation. 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 Right ventricular systolic pressure estimated to be 50 mmHg. Small pericardial effusion. 04/15: Clinically, patient is improving on diuretics with regards to SOB and GARCÍA. 3. Elevated troponin, acute myocardial injury probably from increased cardiac demand/demand ischemia: Patient had elevated troponin in the past. His troponin was 133 and 120 in April 05, 2024 First troponin 162. Cycle cardiac enzymes. Patient does not have chest pain or pressure therefore it is not non-STEMI 04/15: Trop 162, 164 AND 162 flat and plateau. No significant delta change. Non STEMI ruled out. No CHEST pain. 4. CKD stage III: Patient baseline creatinine runs around 1.5-1.6, fluctuates with the dose of diuretic and kidney perfusion. BUN/creatinine today 46/1.62. On baseline. Monitor kidney function and electrolytes 04/15: Labs pending. Titrated dose of diuretic according to fluid hemodynamics and kidney function. 4. Mild chronic anemia: Patient hemoglobin has been around 11 to 12 g. Currently Hb 13.6 in March probably from hemoconcentration. 04/15: No signifidant change. 6. Paroxysmal A-fib: Continue home Eliquis 2.5 mg twice daily. Heart rate is controlled. 7. Sick sinus syndrome status post pacemaker 8. Hypertension: Blood pressure is controlled. Monitor BP and titrate antihypertensive medications accordingly. 9. Dyslipidemia on statin. 10. Depression: On home duloxetine. 11. GERD: On PPI DVT prophylaxis: On Eliquis 2.5 mg twice daily Living will/advanced directive/end of life care: Patient does have living will or advanced directive. Patient's son is power of corporate associate attorney for health who is accompanied the patient in ED. After discussion of benefits/risks procedures involved with full code, DNR CC arrest and DNR CC, the patient and his son opted for DNR CC arrest with no intubation Patient doesn't want artificial life support including intubation, tube feed, ventilator and/chest compression, central venous catheter, vasopressor and DC shock if needed Laboratory Results 04/14/24 12:20: WBC 10.0, RBC 4.34 L, Hgb 13.6, Hct 42.7, MCV 98.4 H, MCH 31.3, MCHC 31.9 L, RDW Std Deviation 62.9 H, RDW Coeff of [place] 17.2 H, Plt Count 176, MPV 12.1 H, Immature Gran % (Auto) 2.200 H, Neut % (Auto) 67.6, Lymph % (Auto) 20.2, [place] % (Auto) 9.1, Eos % (Auto) 0.7, Baso % (Auto) 0.2, Absolute Neuts (auto) 6.8, Absolute Lymphs (auto) 2.02, Nucleated RBC % 0, Sodium 141, Potassium 4.3, Chloride 112 H, Carbon Dioxide 21.0, Anion Gap 8, BUN 46 H, Creatinine 1.62 H, Estim Creat Clear Calc 36.15, Est GFR (MDRD) Af Amer 52 L, Est GFR (MDRD) Non-Af 43 L, BUN/Creatinine Ratio 28.4 H, Glucose 106, Calcium 9.0, Troponin I High Sens 162 H* 04/14/24 13:02: Urine Color Yellow, Urine Clarity Clear, Urine pH 5.0, Ur Specific [place] 1.015, Urine Protein 15 H, Urine Glucose (UA) Normal, Urine Ketones Negative, Urine Occult Blood Negative, Urine Nitrite Negative, Urine Bilirubin Negative, Urine Urobilinogen Normal, Ur Leukocyte Esterase Negative, Urine RBC 0 SEEN, Urine WBC 0 SEEN, Ur Squamous Epith Cells 0 SEEN, Urine Bacteria 0 SEEN, Urine Mucus 0 SEEN 04/14/24 13:29: Specimen Type ART, Sample Site R Radial, pH 7.40, Bicarbonate Actual 20.6 L, Total CO2 22, Base Excess -4 L, O2 Saturation 94 L, ABG pCO2 33.3 L, ABG pO2 69 L, Patrick Test Positive, O2 Delivery Device Room Air, Vent Mode Not entered Clinical Impression(s) from Imaging Studies Cervical Spine CT 04/14/24 10:19 IMPRESSION: 1. No acute fracture or subluxation. 2. Prominent diffuse spondylosis. 3. Bilateral pleural effusions Brain CT 04/14/24 10:20 IMPRESSION: 1. No acute intracranial abnormality. 2. No interval change. Chest X-Ray 04/14/24 11:58 IMPRESSION: New central pulmonary edema. Persistent bibasilar pleural-parenchymal densities. Electronically Signed: Saw Colunga MD at 12:59 EDT , Charges/Coding Visit Charges Inpatient E&M: 31223 Subs Hosp L2
[2024-04-15 17:12] LABS: Anion Gap 10 (5-15); BUN 48 mg/dL (7-18); BUN/Creat Ratio 28.2 RATIO (10-20); Chloride 104 mmol/L (98-107); Cholesterol 181 mg/dL (200); EST Glomerular Filtration Rate 41 mL/min (>60); Est Glom Filt Rate - Afr Amer 50 mL/min (>60); Estimated Creatinine Clearance 34.45 ml/min; Glucose 132 mg/dL (74-106); High Density Lipoprotein 69 mg/dL; Sodium Level 139 mmol/L (136-145); Thyroid Stim Hormone (TSH) 1.77 uIU/mL (0.358-3.74); Triglycerides 166 mg/dL; Very Low Density Lipoprotein 33 mg/dL (5-40)
[2024-04-15] MEDS: 0.9% Saline Lock 10 ML Syringe IV (17:25)
[2024-04-15 20:57] VITALS: BP 124/73; PULSE 56; RESP 16; TEMP 36.8; O2SAT 100
[2024-04-15 21:50] VITALS: BP 132/68; PULSE 63
[2024-04-16 00:51] LABS: Magnesium 2.1 mg/dL (1.6-2.6)
[2024-04-16 03:39] VITALS: BP 123/65; PULSE 53; RESP 18; TEMP 36.7; O2SAT 98
[2024-04-16 06:00] VITALS: BMI 24.0
[2024-04-16 07:40] LABS: Absolute Lymphocyte Count 1.46 X10^3/uL (0.83-4.51); Basophil# 0.03 X10^3/uL; Basophil% 0.4 % (0-1); Eosinophil# 0.15 X10^3/uL; Eosinophils% 1.8 % (0-5); Hematocrit 44.9 % (40-54); Hemoglobin 14.7 g/dL (13.0-16.5); Lymphocyte # 1.46 X10^3/ul (0.83-4.51); Lymphocyte % 17.5 % (19-41); Mean Corp Hgb Conc 32.7 g/dL (32-36); Mean Corpuscular Hgb 31.5 pg (27.0-32.0); Mean Corpuscular Volume 96.1 fL (80-94); Monocyte# 0.67 X10^3/uL; NRBC Flagged by Analyzer 0 % (0-5); Neutrophil # 5.99 X10^3/uL (2.7-7.7); Neutrophil % 71.9 % (47-70); Platelet Count 179 K/mm3 (150-450); RBC Distribution Width CV 16.6 % (11.6-14.6); RBC Distribution Width SD 58.2 fl (35.1-43.9); Red Blood Count 4.67 M/mm3 (4.6-6.2); White Blood Count 8.3 K/mm3 (4.4-11.0)
[2024-04-16 08:00] VITALS: BP 123/68; PULSE 50; RESP 16; TEMP 36.4; O2SAT 96
[2024-04-16] MEDS: Folic Acid 1 MG Tablet PO ×2 (08:00→17:04)
[2024-04-16] MEDS: Senna/Docusate Sodium 1 Tablet PO ×2 (08:00→21:17)
[2024-04-16] MEDS: Fluticasone 0.05% 1 SPRAY NASAL.SRY NASAL ×2 (08:00→21:22)
[2024-04-16] MEDS: Spironolactone 25 MG Tablet PO (08:01)
[2024-04-16] MEDS: APIXABAN 2.5 MG TABLET (WCH) PO ×2 (08:01→21:17)
[2024-04-16] MEDS: Atorvastatin Calcium 40 MG Tablet PO (08:01)
[2024-04-16] MEDS: Pantoprazole Sodium 40 MG Tablet PO ×2 (08:01→21:17)
[2024-04-16 08:02] LABS: Anion Gap 9 (5-15); BUN 42 mg/dL (7-18); BUN/Creat Ratio 24.3 RATIO (10-20); Chloride 104 mmol/L (98-107); Creatinine, Serum 1.73 mg/dL (0.70-1.30); EST Glomerular Filtration Rate 40 mL/min (>60); Est Glom Filt Rate - Afr Amer 49 mL/min (>60); Estimated Creatinine Clearance 33.85 ml/min; Glucose 111 mg/dL (74-106); Potassium 3.8 mmol/L (3.5-5.1); Sodium Level 137 mmol/L (136-145)
--- NOTE | 2024-04-16 09:51 | CASEMGMT ---
RN left NOLVIA a note indicating patient would like to go to [facility] TCU. SW made a referral and TCU accepted. Pre-cert was started and approval received for tomorrow. SW met with patient. Introduced self and role at [facility]. SW let patient know SW was informed he would like TCU and patient confirmed. SW let patient know TCU can take him and his insurance approved him for tomorrow. Patient thanked NOLVIA for letting him know. Plan: d/c to [facility] TCU under skilled level of care. Eev CAR
[2024-04-16] MEDS: DULoxetine Hcl 30 MG Capsule PO ×2 (09:55→21:17)
[2024-04-16] MEDS: Furosemide 40 MG/4 ML Vial IV (09:55)
[2024-04-16] MEDS: 0.9% Saline Lock 10 ML Syringe IV (09:56)
[2024-04-16 10:00] VITALS: BP 118/55; PULSE 53; RESP 18; TEMP 36.5; O2SAT 98
--- NOTE | 2024-04-16 11:22 | PCM.PN.HOSP ---
Reason for Visit Reason for Visit: Diagnoses Acute on chronic systolic (congestive) heart failure (04/14/24) Other malaise (04/14/24) Objective Data Objective Data Vital Signs: Vital Signs Temp Pulse Resp BP Pulse Ox O2 Del Method 97.7 F L 53 L 18 118/55 L 98 Room Air 04/16/24 10:00 04/16/24 10:00 04/16/24 10:00 04/16/24 10:00 04/16/24 10:00 04/16/24 10:00 Oxygen Delivery Method Room Air Weight: 172 lb 2.896 oz Body Mass Index (BMI) 24.0 Intake & Output: Intake and Output for Last 24 Hours 04/14/24 04/15/24 04/16/24 23:59 23:59 23:59 Intake Total 400 / 640 1440 / 1440 Output Total 980 / 2080 4550 / 4550 800 / 800 Balance -580 / -1440 -3110 / -3110 -800 / -800 Lab / Micro Data 04/16/24 07:15 04/16/24 07:15 Labs: Laboratory Results - last 24 hr 04/15/24 15:53: WBC 9.7, RBC 4.71, Hgb 14.5, Hct 46.2, MCV 98.1 H, MCH 30.8, MCHC 31.4 L, RDW Std Deviation 60.2 H, RDW Coeff of Lane[place] 16.8 H, Plt Count 186, MPV 11.7, Immature Gran % (Auto) 0.100, Neut % (Auto) 74.4 H, Lymph % (Auto) 16.5 L, [place] % (Auto) 6.8, Eos % (Auto) 1.9, Baso % (Auto) 0.3, Absolute Neuts (auto) 7.2, Absolute Lymphs (auto) 1.60, Nucleated RBC % 0, Sodium 139, Potassium 4.0, Chloride 104, Carbon Dioxide 25.0, Anion Gap 10, BUN 48 H, Creatinine 1.70 H, Estim Creat Clear Calc 34.45, Est GFR (MDRD) Af Amer 50 L, Est GFR (MDRD) Non-Af 41 L, BUN/Creatinine Ratio 28.2 H, Glucose 132 H, Calcium 9.0, Triglycerides 166, Cholesterol 181, LDL Cholesterol 79, VLDL Cholesterol 33, HDL Cholesterol 69, TSH 1.77 04/16/24 00:29: Magnesium 2.1 04/16/24 07:15: WBC 8.3, RBC 4.67, Hgb 14.7, Hct 44.9, MCV 96.1 H, MCH 31.5, MCHC 32.7, RDW Std Deviation 58.2 H, RDW Coeff of [place] 16.6 H, Plt Count 179, MPV 12.0, Immature Gran % (Auto) 0.400, Neut % (Auto) 71.9 H, Lymph % (Auto) 17.5 L, [place] % (Auto) 8.0, Eos % (Auto) 1.8, Baso % (Auto) 0.4, Absolute Neuts (auto) 6.0, Absolute Lymphs (auto) 1.46, Nucleated RBC % 0, Sodium 137, Potassium 3.8, Chloride 104, Carbon Dioxide 24.0, Anion Gap 9, BUN 42 H, Creatinine 1.73 H, Estim Creat Clear Calc 33.85, Est GFR (MDRD) Af Amer 49 L, Est GFR (MDRD) Non-Af 40 L, BUN/Creatinine Ratio 24.3 H, Glucose 111 H, Calcium 9.0 Rhythm Strip Rhythm Strip: Ventricular paced rhythm Rate: 49 Ectopy: None Physical Exam Narrative Seen and examined. SOB is improved. No chest pain/pressure or tightness. Patient did sleep well last night Physical exam General: Alert, Oriented x3, Cooperative. BMI 26.7 kg/m?. Mild overweight HEENT: Bilateral hearing impairment atraumatic, PERRLA, EOMI, Normocephalic Oral: Oral mucosa dry. No Gingival or Mucosal Lesions/ Ulcerations Neck: Supple, No JVD, Negative Carotid Bruits Chest wall/Lungs: Air entry diminished in bilateral lung bases. Lungs sound clear. No crepts. Cardiovascular: V paced rhythm, right-sided pacemaker. Normal S1, Normal S2, No M/G/R Abdomen: Bowel Sounds Present, Soft, Non Tender, Non-Distended : No dysuria. No renal angle tenderness. No suprapubic tenderness. Extremities: No edema, Capillary Refill Less than 3 Seconds Skin: No rashes, No breakdown Musculoskeletal: Bilateral TKR. Right hip hemiarthroplasty. No acute tenderness to Palpation of Joints or Extremities.degenerative arthritis Neurological: Cranial nerves II-XII grossly intact, DTR 2+/4. No acute focal neurological deficit. Psych/Mental Status: Flat affect. Assessment & Plan Assessment/Plan (1) Acute on chronic HFrEF (heart failure with reduced ejection fraction): (2) Debility: PLAN: Plan This is a 84-year-old male is brought by EMS after acute on recurrent fall, fatigue and acute on chronic shortness of breath 1. Acute debility due to multiple recurrent fall recently, with history of bilateral TKR and right hip hemiarthroplasty in January 2024: Patient is being admitted in PCU for CHF exacerbation. PT and OT, director case, pain control and might need rehab placement. 04/15: Being evaluated by PT AND OT. 2. Acute on chronic HFrEF: Chest x-ray initially reviewed and shows pulmonary congestion/new central pulmonary edema. The patient recently had TTE on 12/24/2023 which showed worsening of EF from previous 2054 to 25% with severe global hypokinesis. No need for repeat echo. Patient on discharged on guideline directed medical therapy with beta-pilar, ARB, spironolactone and loop diuretic treatment but home medications does not show DANA/ARB/Entresto. Patient was evaluated by double ending machine operator at that time. Started on Lasix 40 mg IV twice daily in ER and continued. Heart failure core measures including intake and output, fluid restriction less than 1500 mL, daily weight monitoring, kidney and electrolytes monitoring. ABG 7.40/33/69 on room air. Echo December 2023 Interpretation Summary Severe concentric left ventricular hypertrophy. The left ventricular ejection fraction is 25 %. Diastolic function is indeterminate. There is moderate biatrial dilatation. 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 Right ventricular systolic pressure estimated to be 50 mmHg. Small pericardial effusion. 04/15: Clinically, patient is improving on diuretics with regards to SOB and GARCÍA. 04/16: 04/16. t. Furosemide IV changed to bumetanide 2 mg twice daily. 3. Elevated troponin, acute myocardial injury probably from increased cardiac demand/demand ischemia: Patient had elevated troponin in the past. His troponin was 133 and 120 in April 05, 2024 First troponin 162. Cycle cardiac enzymes. Patient does not have chest pain or pressure therefore it is not non-STEMI 04/15: Trop 162, 164 AND 162 flat and plateau. No significant delta change. Non STEMI ruled out. No CHEST pain. 4. CKD stage III: Patient baseline creatinine runs around 1.5-1.6, fluctuates with the dose of diuretic and kidney perfusion. BUN/creatinine today 46/1.62. On baseline. Monitor kidney function and electrolytes 04/15: Labs pending. Titrated dose of diuretic according to fluid hemodynamics and kidney function. 04/16: As mentioned above. 4. Mild chronic anemia: Patient hemoglobin has been around 11 to 12 g. Currently Hb 13.6 in March probably from hemoconcentration. 04/15: No signifidant change. 6. Paroxysmal A-fib: Continue home Eliquis 2.5 mg twice daily. Heart rate is controlled. 7. Sick sinus syndrome status post pacemaker 8. Hypertension: Blood pressure is controlled. Monitor BP and titrate antihypertensive medications accordingly. 9. Dyslipidemia on statin. 10. Depression: On home duloxetine. 11. GERD: On PPI DVT prophylaxis: On Eliquis 2.5 mg twice daily Living will/advanced directive/end of life care: Patient does have living will or advanced directive. Patient's son is power of staff attorney for health who is accompanied the patient in ED. After discussion of benefits/risks procedures involved with full code, DNR CC arrest and DNR CC, the patient and his son opted for DNR CC arrest with no intubation Patient doesn't want artificial life support including intubation, tube feed, ventilator and/chest compression, central venous catheter, vasopressor and DC shock if needed Laboratory Results 04/14/24 12:20: WBC 10.0, RBC 4.34 L, Hgb 13.6, Hct 42.7, MCV 98.4 H, MCH 31.3, MCHC 31.9 L, RDW Std Deviation 62.9 H, RDW Coeff of [place] 17.2 H, Plt Count 176, MPV 12.1 H, Immature Gran % (Auto) 2.200 H, Neut % (Auto) 67.6, Lymph % (Auto) 20.2, [place] % (Auto) 9.1, Eos % (Auto) 0.7, Baso % (Auto) 0.2, Absolute Neuts (auto) 6.8, Absolute Lymphs (auto) 2.02, Nucleated RBC % 0, Sodium 141, Potassium 4.3, Chloride 112 H, Carbon Dioxide 21.0, Anion Gap 8, BUN 46 H, Creatinine 1.62 H, Estim Creat Clear Calc 36.15, Est GFR (MDRD) Af Amer 52 L, Est GFR (MDRD) Non-Af 43 L, BUN/Creatinine Ratio 28.4 H, Glucose 106, Calcium 9.0, Troponin I High Sens 162 H* 04/14/24 13:02: Urine Color Yellow, Urine Clarity Clear, Urine pH 5.0, Ur Specific [place] 1.015, Urine Protein 15 H, Urine Glucose (UA) Normal, Urine Ketones Negative, Urine Occult Blood Negative, Urine Nitrite Negative, Urine Bilirubin Negative, Urine Urobilinogen Normal, Ur Leukocyte Esterase Negative, Urine RBC 0 SEEN, Urine WBC 0 SEEN, Ur Squamous Epith Cells 0 SEEN, Urine Bacteria 0 SEEN, Urine Mucus 0 SEEN 04/14/24 13:29: Specimen Type ART, Sample Site R Radial, pH 7.40, Bicarbonate Actual 20.6 L, Total CO2 22, Base Excess -4 L, O2 Saturation 94 L, ABG pCO2 33.3 L, ABG pO2 69 L, Patrick Test Positive, O2 Delivery Device Room Air, Vent Mode Not entered Clinical Impression(s) from Imaging Studies Cervical Spine CT 04/14/24 10:19 IMPRESSION: 1. No acute fracture or subluxation. 2. Prominent diffuse spondylosis. 3. Bilateral pleural effusions Brain CT 04/14/24 10:20 IMPRESSION: 1. No acute intracranial abnormality. 2. No interval change. Chest X-Ray 04/14/24 11:58 IMPRESSION: New central pulmonary edema. Persistent bibasilar pleural-parenchymal densities. Electronically Signed: Saw Colunga MD at 12:59 EDT , Charges/Coding Visit Charges Inpatient E&M: 52557 Subs Hosp L2
--- NOTE | 2024-04-16 11:25 | CASEMGMT ---
RN CM Face to Face with patient for initial transition planning/care coordination assessment. RN CM introduced self and role at [facility]. Patient sitting in chair, alert and oriented. Patient willing to participate in assessment and is able to answer all questions appropriately. Care providers, pharmacy, and demographics verified. PCP: Leena Specialists: Yin, oracle r12 developer; jc Tran Preferred Pharmacy: [facility] Insurance: [employer] [facility] Prescription Benefit: yes Living Will/HPOA: yes, Abril CANELA: Living Arrangements: Patient lives with in single story home with 2 steps and grab bars. Patient is independent at home. Transportation: self, walker DME/HHC: Patient has shower chair, raised toilet, grab bars, walker, rollator, bipap at home. Patient is active with HHC but could not recall agency. Patient has been to TCU and SW in the past. Patient wishes to discharge to TCU pending precert. Patient states he has no further needs or concerns at this time. CM to follow for discharge planning needs that may arise. Disposition Plan: TCU pending acceptance and precert. Tita DOMINGUEZ, RN, CM
[2024-04-16 15:50] VITALS: BP 123/73; PULSE 54; RESP 18; TEMP 36.5; O2SAT 99
[2024-04-16] MEDS: Bumetanide 2 MG Tablet PO (17:04)
[2024-04-16 21:17] VITALS: BP 123/76; PULSE 62
[2024-04-16] MEDS: Metoprolol Tartrate 25 MG Tablet 12.5 MG PO (21:17)
[2024-04-16 21:50] VITALS: BP 123/76; PULSE 62; RESP 18; TEMP 36.2; O2SAT 95
[2024-04-16 22:07] VITALS: BMI 24.0
[2024-04-17 03:10] VITALS: BP 116/72; PULSE 52; RESP 18; TEMP 36.2; O2SAT 97
[2024-04-17 05:53] VITALS: BMI 23.1
[2024-04-17 06:53] LABS: Absolute Neutrophil Count 4.8 X10^3/uL (2.0-7.7); Basophil# 0.03 X10^3/uL; Basophil% 0.4 % (0-1); Eosinophil# 0.15 X10^3/uL; Hematocrit 43.9 % (40-54); Hemoglobin 14.6 g/dL (13.0-16.5); Lymphocyte % 20.2 % (19-41); Mean Corp Hgb Conc 33.3 g/dL (32-36); Mean Corpuscular Hgb 31.7 pg (27.0-32.0); Mean Corpuscular Volume 95.4 fL (80-94); Mean Platelet Vol. 12.1 fl (6.2-12.0); Monocyte% 12.1 % (0-10); NRBC Flagged by Analyzer 0 % (0-5); Neutrophil # 4.84 X10^3/uL (2.7-7.7); Platelet Count 175 K/mm3 (150-450); RBC Distribution Width CV 16.3 % (11.6-14.6); RBC Distribution Width SD 57.2 fl (35.1-43.9); White Blood Count 7.4 K/mm3 (4.4-11.0)
[2024-04-17 08:04] LABS: Anion Gap 10 (5-15); BUN 40 mg/dL (7-18); BUN/Creat Ratio 22.9 RATIO (10-20); Calcium,Total 8.9 mg/dL (8.5-10.1); Chloride 101 mmol/L (98-107); Creatinine, Serum 1.75 mg/dL (0.70-1.30); EST Glomerular Filtration Rate 40 mL/min (>60); Est Glom Filt Rate - Afr Amer 48 mL/min (>60); Estimated Creatinine Clearance 33.42 ml/min; Glucose 114 mg/dL (74-106); Potassium 3.5 mmol/L (3.5-5.1); Sodium Level 136 mmol/L (136-145)
[2024-04-17 08:52] VITALS: BP 118/61; PULSE 49; RESP 18; TEMP 36.6; O2SAT 97
[2024-04-17] MEDS: DULoxetine Hcl 30 MG Capsule PO (08:55)
[2024-04-17] MEDS: Bumetanide 2 MG Tablet PO (08:55)
[2024-04-17] MEDS: Pantoprazole Sodium 40 MG Tablet PO (08:55)
[2024-04-17] MEDS: APIXABAN 2.5 MG TABLET (WCH) PO (08:55)
[2024-04-17] MEDS: Folic Acid 1 MG Tablet PO (08:55)
[2024-04-17] MEDS: Senna/Docusate Sodium 1 Tablet PO (08:55)
[2024-04-17] MEDS: Fluticasone 0.05% 1 SPRAY NASAL.SRY NASAL (08:56)
[2024-04-17] MEDS: Atorvastatin Calcium 40 MG Tablet PO (08:56)
[2024-04-17] MEDS: Spironolactone 25 MG Tablet PO (08:56)
--- NOTE | 2024-04-17 12:00 | PCM.TXEXTCAR ---
Diet Diet Order/Speech Therapy: 04/14/24 14:51 Diet: Cardiac - Heart Healthy Food consistency:: Regular Liquid Consistency:: Regular/Thin Dietary Modifications:: Sodium Restricted Is pt able to select menu?: Yes Fluid restriction:: 1750 mL Routine Orders/Code Status Code Status: DNRCC-A (do not intubate) Wound(s) Head: Wound Type: Laceration Therapies Weight Bearing: Full weight bearing Extremity Affected:: Bilateral Lower Physical Therapy: Eval and Treat Occupational Therapy: Eval and Treat Problem/Diagnosis (1) Acute on chronic HFrEF (heart failure with reduced ejection fraction): Status: Chronic Code(s): I50.23 - Acute on chronic systolic (congestive) heart failure (2) Debility: Status: Acute Code(s): R53.81 - Other malaise Plan Patient is an 84-year-old male who presented [facility] ED on 04/14/2024 with recurrent falls and acute on chronic shortness of breath. Hospital course as noted below. Patient discharged to the [facility] TCU in stable condition on 04/17. 1. Acute debility due to multiple recurrent falls, recent history of right hip hemiarthroplasty ? PT/OT/case management followed. Continue home scheduled Tylenol for pain relief. Stable for discharge to TCU on 04/17. 2. Acute on chronic HFrEF, improved ? Most recent echo in 01/13 showed EF 25% with severe global hypokinesis. Chest x-ray on admit showed slightly worsened pulmonary congestion. Improved with IV diuretics. Medication regimen on discharge of Bumex 2 mg twice daily, Lopressor 12.5 mg twice daily, spironolactone 25 mg daily. Outpatient follow-up with cardiology. 3. Elevated troponins ? Troponin trend 162 > 164 > 162. No chest pain or EKG changes, therefore did not meet criteria for NSTEMI. Presumed secondary to mild demand ischemia from HFrEF exacerbation. Chronic medical conditions: ? CKD stage III: Baseline creatinine 1.5-1.6. Remained at baseline during hospitalization. ? Mild chronic anemia: Baseline hemoglobin 11-12. Remained at baseline during hospitalization. ? Paroxysmal A-fib: Heart rate controlled. Continue home Lopressor and Eliquis. ? Sick sinus syndrome s/p pacemaker ? Hypertension: Continue home medications. ? Hyperlipidemia: Continue home statin. ? Depression: Stable. Continue home duloxetine. ? GERD: Continue home PPI and sucralfate. Total clinical time spent by myself addressing the patient's medical issues, reviewing all the data, and collaborating with patient's care team: 35 minutes. Allergies/Procedures Done in Hospital Allergies Iodinated Contrast Media Allergy (Severe, Verified 04/14/24 09:39) Shortness of breath iodine Allergy (Verified 04/14/24 09:39) Shortness of breath Procedures: - (CXR, CT brain and c-spine) Type of Care/Length of Stay Estimated LOS: Convalescent Care Less Than 30 days Type of Care Needed: Skilled Rehab Potential: Fair Prognosis: Fair Additional Orders/Day of Discharge H&P will serve as current which was dated: 04/14/24 Day of Discharge: 04/17/24 Dietary and Speech Recommendations Dietitian Recommendations/Changes: Will continue cardiac/sodium-restricted diet with 1800mL/day FR per physician. Will offer ONS as needed if PO fails at meals, will defer for now due to fluid restriction. Discharge Plan Admission Admit Date/Time: 04/14/24 13:49 Primary Reason for Your Visit: falls and shortness of breath Attending Provider: Gerardo Schulz Primary Care Provider: Joelle Stern Consulting Providers: Brian Shaffer Discharge Orders/Prescriptions Prescriptions: New bumetanide 2 mg Tablet 2 mg PO BIDLX Qty: 0 0RF sennosides-docusate sodium [Stool Softener-Stimulant Laxat] 8.6-50 mg Tablet 1 tab PO BID Qty: 0 0RF metoprolol tartrate 25 mg Tablet 12.5 mg PO BID Qty: 0 0RF Continued rosuvastatin 20 mg tablet 20 mg PO DAILY Eliquis 2.5 mg tablet 2.5 mg PO BID folic acid 1 mg Tablet 1 mg PO BID vitamin B complex Capsule 1 cap PO BID duloxetine 30 mg capsule,delayed release(DR/EC) 30 mg PO BID fluticasone propionate 50 mcg/actuation [place],Suspension 1 spray NASAL BID 30 Days Qty: 16 0RF pantoprazole [Protonix] 40 mg tablet,delayed release (DR/EC) 40 mg PO BID 30 Days Qty: 60 0RF sucralfate [Carafate] 1 gram tablet 1 g PO BID 30 Days Qty: 60 0RF acetaminophen 500 mg Tablet 1,000 mg PO Q8 Qty: 0 0RF spironolactone 25 mg tablet 25 mg PO DAILY zolpidem 5 mg Tablet 5 mg PO QHS PRN (Reason: Insomnia) Patient Comments: TOOK 2 TABLETS ON 04/13/24 menthol-zinc oxide [Calmoseptine] 0.44-20.6 % Ointment 1 applic topical BID PRN (Reason: skin irritation) Protocol: *Topical Application Instructions APPLICATION INSTRUCTIONS: bilateral buttocks Referrals / Follow Up: Joelle Stern MD [Primary Care Provider] - Disposition Disposition (needs filled in before D/C Order can be placed): [facility]
--- NOTE | 2024-04-17 12:01 | PCM.DC.SUM ---
Providers Date of Admission: 04/14/24 Date of Discharge: 04/17/24 Primary Care Physician: Dr. Joelle Stern MD Reason For Visit: CHF EXA, RECURRENT FALL Diagnosis Discharge Diagnosis (1) Acute on chronic HFrEF (heart failure with reduced ejection fraction): Status: Chronic Code(s): I50.23 - Acute on chronic systolic (congestive) heart failure (2) Debility: Status: Acute Code(s): R53.81 - Other malaise Medications at Discharge Home Medications folic acid 1 mg tablet 1 mg PO BID supplement 10/11/21 vitamin B complex 1 cap PO BID vitamin 10/11/21 rosuvastatin 20 mg tablet 20 mg PO DAILY cholesterol 12/16/21 apixaban 2.5 mg tablet (Eliquis) 2.5 mg PO BID blood thinner 03/23/23 duloxetine 30 mg capsule,delayed release 30 mg PO BID DEPRESSION 12/15/23 fluticasone propionate 50 mcg/actuation nasal spray,suspension 1 spray NASAL BID lungs/asthma 30 days #16 grams 12/27/23 pantoprazole 40 mg tablet,delayed release (Protonix) 40 mg PO BID acid reflux 30 days #60 tabs 12/27/23 sucralfate 1 gram tablet (Carafate) 1 g PO BID stomach 30 days #60 tabs 12/27/23 acetaminophen 500 mg tablet 1,000 mg (2 x 500 mg) PO Q8 pain/inflammati #0 tabs 01/25/24 menthol 0.44 %-zinc oxide 20.6 % topical ointment (Calmoseptine) 1 applic topical BID PRN skin irritation 04/05/24 spironolactone 25 mg tablet 25 mg PO DAILY fluid pill 04/05/24 zolpidem 5 mg tablet 5 mg PO QHS PRN Insomnia 04/05/24 bumetanide 2 mg tablet 2 mg PO BIDLX fluid pill #0 tabs 04/17/24 metoprolol tartrate 25 mg tablet 12.5 mg (1/2 x 25 mg) PO BID BP/pulse #0 tabs 04/17/24 sennosides 8.6 mg-docusate sodium 50 mg tablet (Stool Softener-Stimulant Laxative) 1 tab PO BID stool softener #0 tabs 04/17/24 Hospital Course Operations None Procedures - (Chest x-ray, CT brain and C-spine) Summary of Care Provided Minutes Spent on Discharge: 35 Hospital Course: Patient is an 84-year-old male who presented [facility] ED on 04/14/2024 with recurrent falls and acute on chronic shortness of breath. Hospital course as noted below. Patient discharged to the [facility] TCU in stable condition on 04/17. 1. Acute debility due to multiple recurrent falls, recent history of right hip hemiarthroplasty ? PT/OT/case management followed. Continue home scheduled Tylenol for pain relief. Stable for discharge to TCU on 04/17. 2. Acute on chronic HFrEF, improved ? Most recent echo in 01/13 showed EF 25% with severe global hypokinesis. Chest x-ray on admit showed slightly worsened pulmonary congestion. Improved with IV diuretics. Medication regimen on discharge of Bumex 2 mg twice daily, Lopressor 12.5 mg twice daily, spironolactone 25 mg daily. Outpatient follow-up with cardiology. 3. Elevated troponins ? Troponin trend 162 > 164 > 162. No chest pain or EKG changes, therefore did not meet criteria for NSTEMI. Presumed secondary to mild demand ischemia from HFrEF exacerbation. Chronic medical conditions: ? CKD stage III: Baseline creatinine 1.5-1.6. Remained at baseline during hospitalization. ? Mild chronic anemia: Baseline hemoglobin 11-12. Remained at baseline during hospitalization. ? Paroxysmal A-fib: Heart rate controlled. Continue home Lopressor and Eliquis. ? Sick sinus syndrome s/p pacemaker ? Hypertension: Continue home medications. ? Hyperlipidemia: Continue home statin. ? Depression: Stable. Continue home duloxetine. ? GERD: Continue home PPI and sucralfate. Total clinical time spent by myself addressing the patient's medical issues, reviewing all the data, and collaborating with patient's care team: 35 minutes. Physical Exam Narrative Seen and examined. SOB is improved. No chest pain/pressure or tightness. Patient did sleep well last night Physical exam General: Alert, Oriented x3, Cooperative. BMI 26.7 kg/m?. Mild overweight HEENT: Bilateral hearing impairment atraumatic, PERRLA, EOMI, Normocephalic Oral: Oral mucosa dry. No Gingival or Mucosal Lesions/ Ulcerations Neck: Supple, No JVD, Negative Carotid Bruits Chest wall/Lungs: Air entry diminished in bilateral lung bases. Lungs sound clear. No crepts. Cardiovascular: V paced rhythm, right-sided pacemaker. Normal S1, Normal S2, No M/G/R Abdomen: Bowel Sounds Present, Soft, Non Tender, Non-Distended : No dysuria. No renal angle tenderness. No suprapubic tenderness. Extremities: No edema, Capillary Refill Less than 3 Seconds Skin: No rashes, No breakdown Musculoskeletal: Bilateral TKR. Right hip hemiarthroplasty. No acute tenderness to Palpation of Joints or Extremities.degenerative arthritis Neurological: Cranial nerves II-XII grossly intact, DTR 2+/4. No acute focal neurological deficit. Psych/Mental Status: Flat affect. Weight / BMI Weight Weight: 75.2 kg Body Mass Index (BMI) 23.1 ABG / Lab / Microbiology Data 04/17/24 05:55 04/17/24 05:55 Laboratory: Laboratory Results - last 24 hr 04/17/24 05:55: WBC 7.4, RBC 4.60, Hgb 14.6, Hct 43.9, MCV 95.4 H, MCH 31.7, MCHC 33.3, RDW Std Deviation 57.2 H, RDW Coeff of Laney 16.3 H, Plt Count 175, MPV 12.1 H, Immature Gran % (Auto) 0.300, Neut % (Auto) 65.0, Lymph % (Auto) 20.2, [place] % (Auto) 12.1 H, Eos % (Auto) 2.0, Baso % (Auto) 0.4, Absolute Neuts (auto) 4.8, Absolute Lymphs (auto) 1.50, Nucleated RBC % 0, Sodium 136, Potassium 3.5, Chloride 101, Carbon Dioxide 25.0, Anion Gap 10, BUN 40 H, Creatinine 1.75 H, Estim Creat Clear Calc 33.42, Est GFR (MDRD) Af Amer 48 L, Est GFR (MDRD) Non-Af 40 L, BUN/Creatinine Ratio 22.9 H, Glucose 114 H, Calcium 8.9 Meaningful Use Info Meaningful Use Meaningful Use Diagnoses (Choose all that apply): None applicable Ischemic Stroke Statin Dosing Therapy Reference: STATIN DOSE THERAPY REFERENCE: * Patients > 75 years receive moderate or high dose statin therapy. * Patients 75 years or YOUNGER should receive HIGH intensity statin dose unless contraindicated. You will be required to document reason for non-treatment if statin daily dose does not meet guidelines. HIGH DOSE STATIN THERAPY DAILY Atorvastatin > than or = to 40 mg Rosuvastatin > than or = to 20 mg Amlodipine + Atorvastatin > than or = to 2.5/40 mg Ezetimibe + Simvastatin 10/80 mg Simvastatin 80mg Discharge Plan Admission Admit Date/Time: 04/14/24 13:49 Primary Reason for Your Visit: falls and shortness of breath Attending Provider: Gerardo Schulz Primary Care Provider: Joelle Stern Consulting Providers: Brian Shaffer Discharge Orders/Prescriptions Prescriptions: New bumetanide 2 mg Tablet 2 mg PO BIDLX Qty: 0 0RF sennosides-docusate sodium [Stool Softener-Stimulant Laxat] 8.6-50 mg Tablet 1 tab PO BID Qty: 0 0RF metoprolol tartrate 25 mg Tablet 12.5 mg PO BID Qty: 0 0RF Continued rosuvastatin 20 mg tablet 20 mg PO DAILY Eliquis 2.5 mg tablet 2.5 mg PO BID folic acid 1 mg Tablet 1 mg PO BID vitamin B complex Capsule 1 cap PO BID duloxetine 30 mg capsule,delayed release(DR/EC) 30 mg PO BID fluticasone propionate 50 mcg/actuation [place],Suspension 1 spray NASAL BID 30 Days Qty: 16 0RF pantoprazole [Protonix] 40 mg tablet,delayed release (DR/EC) 40 mg PO BID 30 Days Qty: 60 0RF sucralfate [Carafate] 1 gram tablet 1 g PO BID 30 Days Qty: 60 0RF acetaminophen 500 mg Tablet 1,000 mg PO Q8 Qty: 0 0RF spironolactone 25 mg tablet 25 mg PO DAILY zolpidem 5 mg Tablet 5 mg PO QHS PRN (Reason: Insomnia) Patient Comments: TOOK 2 TABLETS ON 04/13/24 menthol-zinc oxide [Calmoseptine] 0.44-20.6 % Ointment 1 applic topical BID PRN (Reason: skin irritation) Protocol: *Topical Application Instructions APPLICATION INSTRUCTIONS: bilateral buttocks Referrals / Follow Up: Joelle Stern MD [Primary Care Provider] - Disposition Disposition (needs filled in before D/C Order can be placed): Assisted Facility Charges/Coding Visit Charges Inpatient E&M: 52908 Disch Hosp >30min
--- NOTE | 2024-04-17 12:23 | CASEMGMT ---
Patient is ready for discharge to [facility] TCU. Plan: d/c to [facility] TCU under skilled level of care. Eve CAR
--- NOTE | 2024-04-17 13:08 | NURSING ---
Called report to [facility] T[facility] RN
--- NOTE | 2024-04-17 13:19 | CASEMGMT ---
Discharge Planning Received a call from Staci at [facility], as patient is active with home assisted, PT and was to have and OT eval on 04.18.2024. For continuity of care, updated Staci to patient's admission and discharge plan to [facility] TCU. Handoff completed to Cassy geriatric social work professor for TCU. Plan: Discharge to [facility] TCU, skilled level of care, for anticipated less than 30 day stay. No other services requested or indicated. -NIKOLAY Mosqueda
[2024-04-17 13:28] VITALS: BP 118/68; PULSE 51; RESP 18; TEMP 36.4; O2SAT 99
--- NOTE | 2024-04-17 13:29 | PHA.DC_ITS ---
Pharmacy [facility] Reconciliation Pharmacy Service has performed discharge medication reconciliation for this patient. The patient's discharge medication list was reviewed for discrepancies and discrepancies were resolved. Medications at Discharge Home Medications folic acid 1 mg tablet 1 mg PO BID supplement 10/11/21 vitamin B complex 1 cap PO BID vitamin 10/11/21 rosuvastatin 20 mg tablet 20 mg PO DAILY cholesterol 12/16/21 apixaban 2.5 mg tablet (Eliquis) 2.5 mg PO BID blood thinner 03/23/23 duloxetine 30 mg capsule,delayed release 30 mg PO BID DEPRESSION 12/15/23 fluticasone propionate 50 mcg/actuation nasal spray,suspension 1 spray NASAL BID lungs/asthma 30 days #16 grams 12/27/23 pantoprazole 40 mg tablet,delayed release (Protonix) 40 mg PO BID acid reflux 30 days #60 tabs 12/27/23 sucralfate 1 gram tablet (Carafate) 1 g PO BID stomach 30 days #60 tabs 12/27/23 acetaminophen 500 mg tablet 1,000 mg (2 x 500 mg) PO Q8 pain/inflammati #0 tabs 01/25/24 menthol 0.44 %-zinc oxide 20.6 % topical ointment (Calmoseptine) 1 applic topical BID PRN skin irritation 04/05/24 spironolactone 25 mg tablet 25 mg PO DAILY 04/05/24 zolpidem 5 mg tablet 5 mg PO QHS PRN Insomnia 04/05/24 bumetanide 2 mg tablet 2 mg PO BIDLX #0 tabs 04/17/24 metoprolol tartrate 25 mg tablet 12.5 mg (1/2 x 25 mg) PO BID #0 tabs 04/17/24 sennosides 8.6 mg-docusate sodium 50 mg tablet (Stool Softener-Stimulant Laxative) 1 tab PO BID #0 tabs 04/17/24
== END 2024-04-17 13:41 | disposition skilled nursing facility (03) | DRG 291 ==
LOC: ED 13:51 → PCU 04-15 11:39
PROVIDERS: Family Medicine; Admitting Provider Internal Medicine; Emergency Provider Emergency Medicine; PCP Internal Medicine; Visit Provider Hospitalist
DX: I13.0 Hypertensive heart and chronic kidney disease with heart failure and stage 1 through stage 4 chronic kidney disease, or unspecified chronic kidney disease (principal); I50.23 Acute on chronic systolic (congestive) heart failure; I49.5 Sick sinus syndrome; I48.0 Paroxysmal atrial fibrillation; I24.89 Other forms of acute ischemic heart disease; N18.30 Chronic kidney disease, stage 3 unspecified; D64.9 Anemia, unspecified; E78.5 Hyperlipidemia, unspecified; K21.9 Gastro-esophageal reflux disease without esophagitis; R29.6 Repeated falls; R53.81 Other malaise; Z95.0 Presence of cardiac pacemaker; Z79.01 Long term (current) use of anticoagulants; Z79.899 Other long term (current) drug therapy; I95.9 Hypotension, unspecified; W19.XXXA Unspecified fall, initial encounter; F32.A Depression, unspecified; G47.33 Obstructive sleep apnea (adult) (pediatric); S00.01XA Abrasion of scalp, initial encounter
CPT/HCPCS: 36415; 36600; 70450; 71045; 72125; 80048; 80061; 81001; 82803; 83735; 84100; 84443; 84484; 85025; 90715; 93005; 94668; 96376; 97162; 97166; 97530; 97535; 99221; 99252; 99284; A4216; G0378; G0463; J1940

== ENCOUNTER 2024-04-17 13:50 | Inpatient (IN) | payer MEDICARE, SELFPAY ==
[2024-04-17 14:34] VITALS: BMI 22.4
--- NOTE | 2024-04-17 14:34 | NURSING ---
Edge [employer] Bearer Note; Activity Asset: Huma Miller has returned for continued therapy and remains independent in his choice of daily activities and was informed of his rights to have his dog visit w/shoot records in place. He has a smartphone he will use for games and talking w/family, watching tv and reading. Family will visits daily and bring him items he may need. Staff will remind him of weekly activities and respect his right to say no.
[2024-04-17 14:57] VITALS: BP 104/61; PULSE 46; RESP 18; TEMP 36.4; O2SAT 98
[2024-04-17] MEDS: Ensure Plus High Protein 120 ML LIQUID PO (16:18)
[2024-04-17] MEDS: Folic Acid 1 MG Tablet PO (16:18)
[2024-04-17] MEDS: Sucralfate 1 GM Tablet PO (16:18)
[2024-04-17] MEDS: Vitamin B Comp W-C Capsule 1 CAP PO (16:18)
--- NOTE | 2024-04-17 20:04 | HP.PCM_ITS ---
HPI - General General Date of Admission: 04/17/24 Date of Service: 04/17/24 Chief Complaint: Here for rehabilitation. HPI Narrative 04/14/2024 BERNY INFANTE, is a 84 Male who presents to [facility] ED with fall. Fall going to [facility], groggy from taking an extra ambien. 4th fall in 2 weeks requiring EMS. Not safe to live at home, more SOB. CT brain negative, Creatinine 1.62, Troponin 162, Troponin mildly elevated at baseline. CT cervical spine showed bilateral pleural effusion, CXR showed central vascular congestion. Lasix IV given. 04/14/2024 Admit [facility]. PT/OT debility. Lasix 40mg IV BID for acute on chronic HFrEF (EF 25%). Cycle cardiac enzymes for elevated troponin. 04/15/2024 SOB improved. Improving SOB with IV diuretic. 04/16/2024 Lasix IV changed to Bumex 2mg bid for acute on chronic HFrEF. Troponin plateaued, NSTEMI ruled out. 04/17/2024 Admit to TCU with debility, here for rehabilitation, strengthening, prior to discharge home with . [facility] Medical History Chronic anticoagulation History of cardiac pacemaker Paroxysmal atrial fibrillation Pacemaker Sick sinus syndrome CKD (chronic kidney disease), stage III HTN (hypertension) Hyperkalemia, diminished renal excretion Atrial flutter HFrEF (heart failure with reduced ejection fraction) Obstructive sleep apnea Left bundle branch block (LBBB) Fatigue Dyspnea LVH (left ventricular hypertrophy) Left ventricular diastolic dysfunction Non-ischemic cardiomyopathy History of hay fever Prostate cancer Hyperlipidemia Depression Home Medications ?Medication ?Instructions ?Recorded ?Last Taken ?Type folic acid 1 mg tablet 1 mg PO BID supplement 10/11/21 04/04/24 History vitamin B complex 1 cap PO BID vitamin 10/11/21 04/13/24 History rosuvastatin 20 mg tablet 20 mg PO DAILY cholesterol 12/16/21 04/13/24 History apixaban 2.5 mg tablet (Eliquis) 2.5 mg PO BID blood thinner 03/23/23 04/13/24 History duloxetine 30 mg capsule,delayed 30 mg PO BID DEPRESSION 12/15/23 04/13/24 History release fluticasone propionate 50 1 spray NASAL BID lungs/asthma 30 12/27/23 04/04/24 Rx mcg/actuation nasal days #16 grams spray,suspension pantoprazole 40 mg tablet,delayed 40 mg PO BID acid reflux 30 days 12/27/23 04/04/24 Rx release (Protonix) #60 tabs sucralfate 1 gram tablet (Carafate) 1 g PO BID stomach 30 days #60 tabs 12/27/23 04/13/24 Rx acetaminophen 500 mg tablet 1,000 mg (2 x 500 mg) PO Q8 01/25/24 04/13/24 Rx pain/inflammati #0 tabs menthol 0.44 %-zinc oxide 20.6 % 1 applic topical BID PRN skin 04/05/24 04/04/24 History topical ointment (Calmoseptine) irritation spironolactone 25 mg tablet 25 mg PO DAILY fluid pill 04/05/24 04/13/24 History zolpidem 5 mg tablet 5 mg PO QHS PRN Insomnia 04/05/24 04/13/24 History bumetanide 2 mg tablet 2 mg PO BIDLX fluid pill #0 tabs 04/17/24 Unknown Rx metoprolol tartrate 25 mg tablet 12.5 mg (1/2 x 25 mg) PO BID 04/17/24 Unknown Rx BP/pulse #0 tabs sennosides 8.6 mg-docusate sodium 1 tab PO BID stool softener #0 tabs 04/17/24 Unknown Rx 50 mg tablet (Stool Softener-Stimulant Laxative) Allergy/AdvReac Type Severity Reaction Status Date / Time Iodinated Contrast Media Allergy Severe Shortness Verified 04/14/24 09:39 of breath iodine Allergy Shortness Verified 04/14/24 09:39 of breath Surgical History History of right hip hemiarthroplasty History of left heart catheterization (12/17/21) Hx of appendectomy History of total bilateral knee replacement History of prostate surgery Social History household members: spouse Smoking Status: Never smoker alcohol intake: current alcohol intake frequency: 0-2 drinks per day Alcohol type: beer, wine and hard liquor details: 1 drink per night substance use type: does not use caffeine: Yes Type: coffee Number of servings: 2 what type of physical activity do you participate in: walking frequency: daily seatbelt use: always ROS Constitutional Constitutional: Reports fatigue and weakness; Denies chills, fever(s) or weight gain ENT HEENT: Denies headache(s), nasal congestion or nasal discharge Cardiovascular Cardiovascular: Reports dyspnea on exertion and edema; Denies chest pain or palpitations Respiratory/Chest Respiratory/Chest: Denies cough, excessive phlegm production or shortness of breath with exertion Gastrointestinal Gastrointestinal: Denies abdominal pain, nausea or vomiting Genitourinary Genitourinary: Denies dysuria Musculoskeletal Musculoskeletal: Denies joint pain or joint swelling Integumentary Integumentary: Denies rash or wounds Neurologic Neurologic: Denies focal weakness, numbness or tingling Psychiatric Psychiatric: Denies anxiety, auditory hallucinations, depression, homicidal ideation or suicidal ideation Vital Signs Vital Signs Vital Signs: 04/17/24 14:57 04/17/24 15:02 Temperature 97.5 F L Temperature Source Temporal Pulse Rate 46 L Pulse Rhythm Regular Pulse Strength Normal (2+) Respiratory Rate 18 Respiratory Effort Normal Non-Labored Respiratory Depth Normal Respiratory Pattern Normal Blood Pressure 104/61 Blood Pressure Mean 75 Blood Pressure Source Monitor Blood Pressure Position Semi-Fowlers Blood Pressure Location Left Arm Pulse Ox 98 Oxygen Delivery Method Room Air Room Air Weight Weight: 72.756 kg Body Mass Index (BMI) 22.4 Physical Exam Const alert General Appearance: cooperative HEENT normocephalic Eyes PERRL and EOMs intact bilaterally Neck supple, no JVD and no carotid bruits Resp normal respiratory effort, normal air movement and clear to auscultation bilaterally Cardio regular rate and regular rhythm GI normal to inspection, nondistended, normoactive bowel sounds, non-tender and non-distended Extremity normal capillary refill General Extremity: edema bilateral (1+) Skin no rashes or lesions noted General Skin Exam: no breakdown Psych affect normal Appearance: appropriate Assessment & Plan Assessment/Plan (1) Debility: (2) Fall: (3) Acute on chronic HFrEF (heart failure with reduced ejection fraction): (4) Elevated troponin: (5) Hyperlipidemia: (6) Depression: (7) Allergic rhinitis: (8) Duodenal ulcer: (9) Leg cramps: (10) Insomnia: (11) Atrial fibrillation: PLAN: Plan 84 year old male with below past medical history hospitalized for multiple falls, acute on chronic HFrEF, complicated elevated troponin, NSTEMI ruled out, admitted to TCU with debility, here for rehabilitation, strengthening, prior to discharge home with . * Debility - PT/OT. * Cognition - ST. * Pain - Tylenol 1000mg q8. * Bowel - senna/colace 1 tablet bid. * Adult immunization - Administer pneumonia vaccine, covid vaccine, flu vaccine as appropriate. * DVT prophylaxis - on Eliquis. * Atrial fibrillation - Metoprolol 6.25mg bid, Eliquis 2.5mg bid. * Hyperlipidemia - Atorvastatin 40mg qhs. * Acute on chronic HFrEF - Metoprolol 6.25mg bid, Entresto 24/26mg bid, Jardiance 10mg daily, Aldactone 12.5mg daily, Bumex 2mg bidlx. * Depression - Duloxetine 30mg bid, stable chronic detention use, GDR not recommended. * Nutrition - Ensure Plus 120ml tidcm. * Allergic rhinitis - Flonase 1 spray nasal bid. * Skin irritation - Calmoseptine topical bid prn. * Duodenal ulcer - Pantoprazole 40mg bid, Sucralfate 1gm bid. * Leg cramps - Vitamin B complex 1 capsule bid. * Insomnia - Zolpidem 5mg qhs prn, stable chronic [employer] use, GDR not recommended.
[2024-04-17] MEDS: SACUBITRIL/VALSARTAN 24/26 MG TABLET 1 EACH PO (23:08)
[2024-04-17] MEDS: Pantoprazole Sodium 40 MG Tablet PO (23:10)
[2024-04-17] MEDS: Senna/Docusate Sodium 1 Tablet PO (23:10)
[2024-04-17] MEDS: Atorvastatin Calcium 40 MG Tablet PO (23:11)
[2024-04-17] MEDS: DULoxetine Hcl 30 MG Capsule PO (23:11)
[2024-04-17] MEDS: APIXABAN 2.5 MG TABLET (WCH) PO (23:11)
[2024-04-17 23:12] VITALS: BP 147/60; PULSE 53
[2024-04-17] MEDS: Acetaminophen 500 MG Tablet 1000 MG PO (23:12)
[2024-04-17] MEDS: Metoprolol Tartrate 25 MG Tablet 6.25 MG PO (23:12)
[2024-04-17] MEDS: Fluticasone 0.05% 1 SPRAY NASAL.SRY NASAL (23:12)
[2024-04-17 23:19] VITALS: BP 147/60; PULSE 53
[2024-04-18] VITALS (8 sets, daily range): BP systolic 86–101; BP diastolic 45–60; PULSE 49–51; RESP 18; TEMP 36.2; O2SAT 94; BMI 22.2; BMI 22.3
[2024-04-18] MEDS: Acetaminophen 500 MG Tablet 1000 MG PO ×3 (05:25→21:51)
[2024-04-18] MEDS: Bumetanide 2 MG Tablet PO (05:25)
[2024-04-18] MEDS: Sucralfate 1 GM Tablet PO ×2 (05:26→16:23)
[2024-04-18 06:18] LABS: Absolute Lymphocyte Count 1.74 X10^3/uL (0.83-4.51); Absolute Neutrophil Count 4.3 X10^3/uL (2.0-7.7); Basophil# 0.04 X10^3/uL; Basophil% 0.5 % (0-1); Eosinophil# 0.25 X10^3/uL; Eosinophils% 3.4 % (0-5); Hematocrit 49.3 % (40-54); Hemoglobin 15.6 g/dL (13.0-16.5); Lymphocyte # 1.74 X10^3/ul (0.83-4.51); Lymphocyte % 23.7 % (19-41); Mean Corp Hgb Conc 31.6 g/dL (32-36); Mean Corpuscular Hgb 31.1 pg (27.0-32.0); Mean Corpuscular Volume 98.4 fL (80-94); Mean Platelet Vol. 11.9 fl (6.2-12.0); Monocyte# 0.95 X10^3/uL; NRBC Flagged by Analyzer 0 % (0-5); Neutrophil # 4.31 X10^3/uL (2.7-7.7); Neutrophil % 58.9 % (47-70); Platelet Count 182 K/mm3 (150-450); RBC Distribution Width CV 16.2 % (11.6-14.6); RBC Distribution Width SD 58.4 fl (35.1-43.9); Red Blood Count 5.01 M/mm3 (4.6-6.2); White Blood Count 7.3 K/mm3 (4.4-11.0)
[2024-04-18 06:59] LABS: Anion Gap 9 (5-15); BUN 42 mg/dL (7-18); BUN/Creat Ratio 21.2 RATIO (10-20); Calcium,Total 8.8 mg/dL (8.5-10.1); Chloride 97 mmol/L (98-107); Creatinine, Serum 1.98 mg/dL (0.70-1.30); EST Glomerular Filtration Rate 34 mL/min (>60); Est Glom Filt Rate - Afr Amer 42 mL/min (>60); Estimated Creatinine Clearance 28.31 ml/min; Glucose 106 mg/dL (74-106); Potassium 3.4 mmol/L (3.5-5.1); Sodium Level 137 mmol/L (136-145)
--- NOTE | 2024-04-18 09:43 | PCM.PN.DRR ---
TCU RX Drug Regimen Review Subjective/Objective Subjective/Objective: Subjective: 84 YOM admitted to TCU on 04/17/24 s/p hospitalization at [facility] secondary to a fall. It is noted that the patient fell going to the bathroom from being groggy secondary to Ambien use. Admitted to TCU for strengthening and rehabilitation prior to discharge home where he resides with his . Objective: Allergies Iodinated Contrast Media Allergy (Severe, Verified 04/14/24 09:39) Shortness of breath iodine Allergy (Verified 04/14/24 09:39) Shortness of breath Current Medications Generic Name Dose Route Start Last Admin Trade Name Freq PRN Reason Stop Dose Admin Acetaminophen 1,000 mg 04/17/24 22:00 04/18/24 05:25 Acetaminophen 500 Mg Tablet PO 1,000 mg Q8 EMPERATRIZ Administration Apixaban 2.5 mg 04/17/24 22:00 04/17/24 23:11 Apixaban 2.5 Mg Tablet ([facility]) PO 2.5 mg BID EMPERATRIZ Administration Atorvastatin Calcium 40 mg 04/17/24 22:00 04/17/24 23:11 Atorvastatin Calcium 40 Mg Tablet PO 40 mg QHS EMPERATRIZ Administration Bumetanide 2 mg 04/19/24 10:00 Bumetanide 2 Mg Tablet PO DAILY EMPERATRIZ Protocol Calamine/Phenol 1 applic 04/17/24 14:11 Menthol/Lanolin/Calamine/Znox 113 Gm Tube TOPICAL BID PRN skin irritation Protocol Calamine/Phenol 1 applic 04/18/24 10:00 Menthol/Lanolin/Calamine/Znox 113 Gm Tube TOPICAL BID EMPERATRIZ Protocol Duloxetine HCl 30 mg 04/17/24 22:00 04/17/24 23:11 Duloxetine Hcl 30 Mg Capsule PO 30 mg BID EMPERATRIZ Administration Empagliflozin 10 mg 04/18/24 10:00 Empagliflozin 10 Mg Tablet PO DAILY EMPERATRIZ Fluticasone Propionate 1 spray 04/17/24 22:00 04/17/24 23:12 Fluticasone 0.05% 1 [place] Nasal.Sry NASAL 1 spray BID EMPERATRIZ Administration Multivitamins 1 cap 04/17/24 17:00 04/17/24 16:18 Vitamin B Comp W-C Capsule PO 1 cap BIDCM EMPERATRIZ Administration Nutritional Formula (Lactose Free) 120 ml 04/17/24 17:45 04/17/24 16:18 Ensure Plus High Protein 120 Ml Liquid PO 120 ml TIDCM EMPERATRIZ Administration Pantoprazole Sodium 40 mg 04/17/24 22:00 04/17/24 23:10 Pantoprazole Sodium 40 Mg Tablet PO 40 mg BID EMPERATRIZ Administration Sacubitril/Valsartan 1 each 04/17/24 22:00 04/17/24 23:08 Sacubitril/Valsartan 24/26 Mg Tablet PO 1 each BID EMPERATRIZ Administration Senna/Docusate Sodium 1 tablet 04/17/24 22:00 04/17/24 23:10 Senna/Docusate Sodium 1 Tablet PO 1 tablet BID EMPERATRIZ Administration Sodium Chloride 10 - 40 ml 04/17/24 14:47 0.9% Saline Lock 10 Ml Syringe IV UD PRN SALINE FLUSH Spironolactone 12.5 mg 04/18/24 10:00 Spironolactone 25 Mg Tablet PO DAILY [facility] Protocol Sucralfate 1 gm 04/17/24 16:00 04/18/24 05:26 Sucralfate 1 Gm Tablet PO 1 gm 0700,1600 EMPERATRIZ Administration Tuberculin PPD 0.1 ml 04/25/24 10:00 Tuberculin,Purif.Prot.Deriv. 50 Tu/Ml Vial ID 04/25/24 10:01 X1 ONE Tuberculin PPD 0.1 ml 04/18/24 10:00 Tuberculin,Purif.Prot.Deriv. 50 Tu/Ml Vial ID 04/18/24 10:01 X1 ONE Zolpidem Tartrate 5 mg 04/17/24 14:17 Zolpidem Tartrate 5 Mg Tablet PO QHS PRN Insomnia Problem List Insomnia (Acute) Leg cramps (Acute) Duodenal ulcer (Acute) Allergic rhinitis (Acute) Elevated troponin (Acute) Acute on chronic HFrEF (heart failure with reduced ejection fraction) (Chronic) Depression (Acute) Hyperlipidemia (Acute) Atrial fibrillation (Acute) Debility (Acute) Vital Signs Temp Pulse Resp BP Pulse Ox O2 Del Method 97.5 F L 50 L 18 101/60 98 Room Air 04/17/24 14:57 04/18/24 05:32 04/17/24 14:57 04/18/24 05:32 04/17/24 14:57 04/17/24 15:02 Oxygen Delivery Method Room Air Weight: 72.076 kg Body Mass Index (BMI) 22.2 Sodium 137 mmol/L (136-145) 04/18/24 05:13 Potassium 3.4 mmol/L (3.5-5.1) L 04/18/24 05:13 Chloride 97 mmol/L (98-107) L 04/18/24 05:13 Carbon Dioxide 31.0 mmol/L (21.0-32.0) 04/18/24 05:13 Anion Gap 9 (5-15) 04/18/24 05:13 BUN 42 mg/dL (7-18) H 04/18/24 05:13 Creatinine 1.98 mg/dL (0.70-1.30) H 04/18/24 05:13 Est GFR (MDRD) Af Amer 42 mL/min (>60) L 04/18/24 05:13 Est GFR (MDRD) Non-Af 34 mL/min (>60) L 04/18/24 05:13 BUN/Creatinine Ratio 21.2 RATIO (10-20) H 04/18/24 05:13 Glucose 106 mg/dL (74-106) 04/18/24 05:13 Assessment/Plan: 1. Pain: Tylenol 1000mg PO Q8h. Please continue to monitor for increased/decreased S/S pain. 2. CHF/ Atrial fibrillation: Eliquis 2.5mg PO BID, Lipitor 40mg PO QHS, Bumex 2mg PO Daily, Entresto 24/26mg PO BID, Jardiance 10mg PO Daily, Aldactone 12.5mg PO Daily. Please continue to monitor BP (last 101/60), pulse (last 50 BPM), SCr (last 1.98 ) potassium level (last 3.4 note: had KCl replacement today), lipid panel annually (last done 03/2024, labs WNL), S/S bleeding/bruising, H/H (hgb 15.6/ hct 49.3 on 04/18). 3. Duodenal Ulcer: Protonix 40mg PO BID, Carafate 1g PO BID. Please continue to monitor for S/S recurrent bleeding, stomach upset, gas, and diarrhea. Please ensure Carafate is being given at least an hour prior to meals and other medications while taking. 4. Allergic Rhinitis: Flonase 1 spray nasally BID. Please continue to monitor for medication effectiveness, runny nose, throat/ nose irritation. 5. General Wellness: vitamin B complex 1 cap BID. 6. Skin Integrity: Calmoseptine topically BID PRN. Please continue to monitor for skin irritation, redness, ulcer formation. 7. Bowel: Senna/Docusate 1 tab PO BID. Please continue to monitor for increased/decreased constipation and/or diarrhea. Assessment/Plan for indications treated with psychotropic medications: 1. Depression: Cymbalta 30mg PO BID. Please consider a GDR by 09/2024 if clinically indicated, thank you. 2. Insomnia: Ambien 5mg PO QHS. Please consider a GDR by 09/2024 if clinically indicated, thank you. Please continue to monitor patient closely for oversedation, pt has increased risk of falls and grogginess while on this medication. Medical chart and medication regimen reviewed. The following medication irregularities or issues were identified: 1. Insomnia: Zolpidem 5mg PO QHS. Patient with history of being groggy when taking this medication, including increasing the risk of falls. Please evaluate risk v. benefit of medication and consider decreasing the dose or changing to another medication if clinically indicated, thank you. Date Date of Note:: 04/18/24
--- NOTE | 2024-04-18 11:04 | NURSING ---
Updated Dr. Goldberg of patient having dizziness. Too dizzy to stand for full set of orthostatic vitals, see flowsheet for BPs. Order to DC Bumex and order 500cc NS bolus.
[2024-04-18] MEDS: Ensure Plus High Protein 120 ML LIQUID PO ×2 (11:10→12:53)
[2024-04-18] MEDS: Fluticasone 0.05% 1 SPRAY NASAL.SRY NASAL ×2 (11:12→21:47)
[2024-04-18] MEDS: Empagliflozin 10 MG Tablet PO (11:13)
[2024-04-18] MEDS: DULoxetine Hcl 30 MG Capsule PO ×2 (11:13→21:49)
[2024-04-18] MEDS: APIXABAN 2.5 MG TABLET (WCH) PO ×2 (11:13→21:50)
[2024-04-18] MEDS: Pantoprazole Sodium 40 MG Tablet PO ×2 (11:13→21:50)
[2024-04-18] MEDS: Vitamin B Comp W-C Capsule 1 CAP PO ×2 (11:13→17:37)
[2024-04-18] MEDS: Senna/Docusate Sodium 1 Tablet PO ×2 (11:13→21:50)
[2024-04-18] MEDS: Potassium Chloride Oral Tablet 20 MEQ PO (11:16)
[2024-04-18] MEDS: Menthol/Lanolin/Calamine/Znox 113 GM Tube 1 APPLIC TOPICAL ×2 (11:17→21:47)
--- NOTE | 2024-04-18 11:26 | NURSING ---
PT VERY DIZZY TODAY,BP AND HR LOW. DID ORTHO VITALS ,LYING 86/45 HR 51, SITTING 85/47 HR49. PT COULD NOT STAND BUT 10 SEC,COULD NOT GET STANDING VITALS. HELD ENTRESTO AND ALDACTONE. REPORTED TO RN,RN CALLED DR RUBY. NEW ORDER FOR 500 ML BOLUS X1.
[2024-04-18] MEDS: Tuberculin,Purif.prot.deriv. 50 TU/ML Vial 0.1 ML ID (11:45)
[2024-04-18] MEDS: 0.9% Normal Saline (500mL Bag) 500 ML IV (12:05)
--- NOTE | 2024-04-18 12:50 | WOUNDNOTE ---
Was asked to see patient for possible pressure injuries to bilateral heels and coccyx. bilateral heels are intact. there are slightly dark red in color but the skin blanches. pt states he felt at one times there was a sheared area from the sock, but there are currently no open areas noted. pt has been c/o some dizziness with standing and patient is currently up in the chair. just finished with a bolus. nursing prefers not to stand patient at this time. will assess buttocks when patient is back in bed at some point. patient denies having any open areas that he is aware of. nursing states buttocks is red and calmoseptine is being applied. will monitor, but no pressure injuries at this time.
[2024-04-18] MEDS: 0.9% Saline Lock 10 ML Syringe IV (21:48)
[2024-04-18] MEDS: Atorvastatin Calcium 40 MG Tablet PO (21:50)
[2024-04-19 06:00] VITALS: BMI 22.7
[2024-04-19] MEDS: Acetaminophen 500 MG Tablet 1000 MG PO ×3 (06:11→22:03)
[2024-04-19] MEDS: Sucralfate 1 GM Tablet PO ×2 (06:11→16:34)
[2024-04-19 06:56] LABS: Anion Gap 8 (5-15); BUN 55 mg/dL (7-18); BUN/Creat Ratio 25.2 RATIO (10-20); Calcium,Total 8.4 mg/dL (8.5-10.1); Chloride 100 mmol/L (98-107); Creatinine, Serum 2.18 mg/dL (0.70-1.30); EST Glomerular Filtration Rate 31 mL/min (>60); Est Glom Filt Rate - Afr Amer 37 mL/min (>60); Estimated Creatinine Clearance 26.42 ml/min; Glucose 111 mg/dL (74-106); Potassium 3.7 mmol/L (3.5-5.1); Sodium Level 136 mmol/L (136-145)
[2024-04-19 10:35] VITALS: BP 98/54; PULSE 50; RESP 17; TEMP 36.6; O2SAT 98
[2024-04-19] MEDS: Vitamin B Comp W-C Capsule 1 CAP PO ×2 (10:38→16:34)
[2024-04-19] MEDS: APIXABAN 2.5 MG TABLET (WCH) PO ×2 (10:38→22:03)
[2024-04-19] MEDS: Fluticasone 0.05% 1 SPRAY NASAL.SRY NASAL ×2 (10:38→22:04)
[2024-04-19] MEDS: DULoxetine Hcl 30 MG Capsule PO ×2 (10:38→22:03)
[2024-04-19] MEDS: Menthol/Lanolin/Calamine/Znox 113 GM Tube 1 APPLIC TOPICAL ×2 (10:39→22:04)
[2024-04-19] MEDS: Empagliflozin 10 MG Tablet PO (10:39)
[2024-04-19] MEDS: Pantoprazole Sodium 40 MG Tablet PO ×2 (10:39→22:03)
[2024-04-19] MEDS: Ensure Plus High Protein 120 ML LIQUID PO (14:14)
--- NOTE | 2024-04-19 15:10 | CASEMGMT ---
SW met with patient. Introduced self and role at [facility]. SW completed assessment with patient. SW verified contact information. SW also verified patient's code status which is [id number] intubation. Patient stated this is correct. Patient's advance directives are on file at [facility]. Patient would like to discharge home when ready. Patient is open to home health or outpatient therapy if recommended. SW will follow for d/c needs. Eve CAR
[2024-04-19 21:00] VITALS: PULSE 52; O2SAT 96
[2024-04-19] MEDS: Atorvastatin Calcium 40 MG Tablet PO (22:03)
[2024-04-19] MEDS: Senna/Docusate Sodium 1 Tablet PO (22:03)
[2024-04-20 05:42] VITALS: BMI 22.6
[2024-04-20] MEDS: Sucralfate 1 GM Tablet PO ×2 (06:07→16:09)
[2024-04-20] MEDS: Acetaminophen 500 MG Tablet 1000 MG PO ×2 (06:07→20:33)
[2024-04-20 06:34] VITALS: PULSE 101; O2SAT 96
[2024-04-20 09:23] VITALS: BP 102/49; PULSE 50; RESP 16; TEMP 36.4; O2SAT 96
[2024-04-20] MEDS: Fluticasone 0.05% 1 SPRAY NASAL.SRY NASAL ×2 (09:26→20:30)
[2024-04-20] MEDS: Menthol/Lanolin/Calamine/Znox 113 GM Tube 1 APPLIC TOPICAL ×2 (09:26→20:29)
[2024-04-20] MEDS: Ensure Plus High Protein 120 ML LIQUID PO ×3 (09:26→17:28)
[2024-04-20] MEDS: Empagliflozin 10 MG Tablet PO (09:27)
[2024-04-20] MEDS: DULoxetine Hcl 30 MG Capsule PO ×2 (09:27→20:32)
[2024-04-20] MEDS: APIXABAN 2.5 MG TABLET (WCH) PO ×2 (09:27→20:31)
[2024-04-20] MEDS: Senna/Docusate Sodium 1 Tablet PO ×2 (09:27→20:33)
[2024-04-20] MEDS: Pantoprazole Sodium 40 MG Tablet PO ×2 (09:27→20:32)
[2024-04-20] MEDS: Vitamin B Comp W-C Capsule 1 CAP PO ×2 (09:27→17:28)
[2024-04-20] MEDS: 0.9% Saline Lock 10 ML Syringe IV ×2 (12:14→20:35)
[2024-04-20 16:00] VITALS: RESP 18
[2024-04-20] MEDS: Atorvastatin Calcium 40 MG Tablet PO (20:32)
[2024-04-21 05:56] VITALS: BMI 22.3
[2024-04-21] MEDS: Acetaminophen 500 MG Tablet 1000 MG PO ×3 (06:05→20:37)
[2024-04-21] MEDS: Sucralfate 1 GM Tablet PO ×2 (06:05→17:21)
[2024-04-21 10:00] VITALS: BMI 22.3
[2024-04-21] MEDS: Ensure Plus High Protein 120 ML LIQUID PO ×3 (10:14→18:04)
[2024-04-21] MEDS: Empagliflozin 10 MG Tablet PO (10:15)
[2024-04-21] MEDS: DULoxetine Hcl 30 MG Capsule PO ×2 (10:16→20:35)
[2024-04-21] MEDS: Vitamin B Comp W-C Capsule 1 CAP PO ×2 (10:16→18:04)
[2024-04-21] MEDS: Menthol/Lanolin/Calamine/Znox 113 GM Tube 1 APPLIC TOPICAL ×2 (10:17→20:32)
[2024-04-21] MEDS: APIXABAN 2.5 MG TABLET (WCH) PO ×2 (10:17→20:36)
[2024-04-21] MEDS: Pantoprazole Sodium 40 MG Tablet PO ×2 (10:18→20:37)
[2024-04-21] MEDS: Fluticasone 0.05% 1 SPRAY NASAL.SRY NASAL ×2 (10:18→20:32)
[2024-04-21] MEDS: 0.9% Saline Lock 10 ML Syringe IV ×2 (10:19→20:39)
[2024-04-21 14:17] VITALS: BP 105/51; PULSE 52; RESP 16; TEMP 36.1; O2SAT 99
[2024-04-21 20:00] VITALS: PULSE 58; O2SAT 94
[2024-04-21] MEDS: Atorvastatin Calcium 40 MG Tablet PO (20:36)
[2024-04-21] MEDS: Senna/Docusate Sodium 1 Tablet PO (20:37)
[2024-04-22] MEDS: Acetaminophen 500 MG Tablet 1000 MG PO ×3 (05:55→21:10)
[2024-04-22 06:00] VITALS: BMI 22.6
[2024-04-22] MEDS: Sucralfate 1 GM Tablet PO ×2 (06:00→15:30)
[2024-04-22 06:16] VITALS: PULSE 52; O2SAT 92
[2024-04-22] MEDS: Fluticasone 0.05% 1 SPRAY NASAL.SRY NASAL ×2 (08:26→21:07)
[2024-04-22] MEDS: APIXABAN 2.5 MG TABLET (WCH) PO ×2 (08:27→21:08)
[2024-04-22] MEDS: Menthol/Lanolin/Calamine/Znox 113 GM Tube 1 APPLIC TOPICAL ×2 (08:27→21:06)
[2024-04-22] MEDS: Vitamin B Comp W-C Capsule 1 CAP PO ×2 (08:27→16:55)
[2024-04-22] MEDS: Pantoprazole Sodium 40 MG Tablet PO ×2 (08:27→21:09)
[2024-04-22] MEDS: Ensure Plus High Protein 120 ML LIQUID PO ×3 (08:27→16:55)
[2024-04-22] MEDS: Empagliflozin 10 MG Tablet PO (08:27)
[2024-04-22] MEDS: DULoxetine Hcl 30 MG Capsule PO ×2 (08:27→21:08)
[2024-04-22 08:40] VITALS: BP 94/43; PULSE 55; RESP 17; TEMP 36.1; O2SAT 100
[2024-04-22] MEDS: Atorvastatin Calcium 40 MG Tablet PO (21:08)
[2024-04-22] MEDS: Senna/Docusate Sodium 1 Tablet PO (21:09)
[2024-04-22] MEDS: 0.9% Saline Lock 10 ML Syringe IV (21:11)
[2024-04-23 05:22] VITALS: BMI 22.6
[2024-04-23 05:33] VITALS: BMI 22.5
[2024-04-23] MEDS: Acetaminophen 500 MG Tablet 1000 MG PO ×3 (06:05→22:50)
[2024-04-23] MEDS: Sucralfate 1 GM Tablet PO ×2 (06:05→17:22)
[2024-04-23 09:09] VITALS: BMI 22.5
[2024-04-23] MEDS: Menthol/Lanolin/Calamine/Znox 113 GM Tube 1 APPLIC TOPICAL ×2 (09:47→22:52)
[2024-04-23] MEDS: Pantoprazole Sodium 40 MG Tablet PO ×2 (09:50→22:51)
[2024-04-23] MEDS: APIXABAN 2.5 MG TABLET (WCH) PO ×2 (09:50→22:51)
[2024-04-23] MEDS: Vitamin B Comp W-C Capsule 1 CAP PO ×2 (09:50→17:57)
[2024-04-23] MEDS: DULoxetine Hcl 30 MG Capsule PO ×2 (09:50→22:51)
[2024-04-23] MEDS: Fluticasone 0.05% 1 SPRAY NASAL.SRY NASAL ×2 (09:50→22:52)
[2024-04-23] MEDS: Empagliflozin 10 MG Tablet PO (09:51)
[2024-04-23 09:56] VITALS: BP 120/54; PULSE 50
[2024-04-23 13:42] VITALS: BP 101/51; PULSE 64; RESP 18; TEMP 36.3; O2SAT 96
[2024-04-23] MEDS: 0.9% Saline Lock 10 ML Syringe IV (17:57)
[2024-04-23] MEDS: Atorvastatin Calcium 40 MG Tablet PO (22:52)
[2024-04-24 04:52] VITALS: BMI 22.6
[2024-04-24] MEDS: Acetaminophen 500 MG Tablet 1000 MG PO ×3 (05:40→20:16)
[2024-04-24] MEDS: Sucralfate 1 GM Tablet PO ×2 (05:41→16:17)
[2024-04-24] MEDS: Ensure Plus High Protein 120 ML LIQUID PO ×3 (05:42→17:01)
[2024-04-24 05:50] VITALS: O2SAT 93
[2024-04-24 07:26] VITALS: BMI 22.6
[2024-04-24] MEDS: 0.9% Saline Lock 10 ML Syringe IV (08:23)
[2024-04-24] MEDS: Fluticasone 0.05% 1 SPRAY NASAL.SRY NASAL ×2 (08:25→20:15)
[2024-04-24] MEDS: Vitamin B Comp W-C Capsule 1 CAP PO ×2 (08:26→17:01)
[2024-04-24] MEDS: DULoxetine Hcl 30 MG Capsule PO ×2 (08:26→20:15)
[2024-04-24] MEDS: Menthol/Lanolin/Calamine/Znox 113 GM Tube 1 APPLIC TOPICAL ×2 (08:26→20:15)
[2024-04-24] MEDS: APIXABAN 2.5 MG TABLET (WCH) PO ×2 (08:27→20:15)
[2024-04-24] MEDS: Empagliflozin 10 MG Tablet PO (08:27)
[2024-04-24] MEDS: Pantoprazole Sodium 40 MG Tablet PO ×2 (08:27→20:16)
--- NOTE | 2024-04-24 08:46 | NURSING ---
Haulage Boss Note; MDS for 04/24/2024 Complete
--- NOTE | 2024-04-24 09:47 | CASEMGMT ---
Social Work- Care Planning IDT met with patient and , Abril to complete care planning. Discussed patient progress with activity, dietary, and therapy (PT/OT). Patient expressed multiple concerns for care. Patient expressed concerns for leaving previous facility prematurely. Patient informed team that he has concerns about heart medications prescribed that caused weakness and BP declining. Patient expressed concerns for diet and weight loss. Patient is concerned about safety using steps in home. Patient is requesting PAULETTE to go home to evaluate how to maneuver at home. Therapy recommends same day visit from home health care to evaluate for home safety. Therapy reports that the patient is ambulating 130ft with walker. Patient is contact guard assist using steps. Patient has continued dizziness with therapy due to BP. Patient is contact guard/ SBA with toileting, bathing, and dressing. Therapy is recommending home health care with transition to outpatient therapy. Per Dietary, patient is on a cardiac diet (low sodium) and ensure. Dietary recommends continued ensures at home due to significant weight loss. SW educated the patient and regarding [facility] coverage and benefits; NRD 04/29. Patient is currently active with [facility], SW will contact [facility] to arrange same day services. Patient's expressed concerns for patient to discharge home without functionally improving to ambulate safely in home. Patient had multiple falls in home. is unable to provide physical assistance to care for patient. Patient's would like to speak with Physician to discuss patient's prognosis. Physician to be notified. SW will continue to follow to support discharge planning. JOSEP Barnhart
[2024-04-24 13:54] VITALS: BP 105/56; PULSE 57; RESP 16; TEMP 36.2; O2SAT 100
--- NOTE | 2024-04-24 16:45 | CASEMGMT ---
Social Work SW met with patient at bedside to complete MDS. Patient BIM () and PhQ-2 (1) Patient informed SW that he does feel down sometime when he thinks about his reality of falling at home and needing to change his living conditions due to changes in functional status. 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 or [facility] with his and dog. Patient and are review senior living care plans for future. Patient looks forward to returning home over the next week with home health care. SW will continue to follow to support discharge plans. JOSEP Barnhart
[2024-04-24] MEDS: Senna/Docusate Sodium 1 Tablet PO (20:16)
[2024-04-24] MEDS: Atorvastatin Calcium 40 MG Tablet PO (20:16)
[2024-04-25 05:40] VITALS: BMI 22.7
[2024-04-25] MEDS: Acetaminophen 500 MG Tablet 1000 MG PO ×3 (05:41→22:03)
[2024-04-25] MEDS: Sucralfate 1 GM Tablet PO ×2 (05:41→17:11)
[2024-04-25 06:00] LABS: Absolute Lymphocyte Count 1.41 X10^3/uL (0.83-4.51); Absolute Neutrophil Count 3.5 X10^3/uL (2.0-7.7); Basophil# 0.08 X10^3/uL; Basophil% 1.3 % (0-1); Eosinophil# 0.23 X10^3/uL; Eosinophils% 3.7 % (0-5); Hematocrit 43.6 % (40-54); Hemoglobin 13.6 g/dL (13.0-16.5); Lymphocyte # 1.41 X10^3/ul (0.83-4.51); Lymphocyte % 22.9 % (19-41); Mean Corp Hgb Conc 31.2 g/dL (32-36); Mean Corpuscular Hgb 30.6 pg (27.0-32.0); Mean Corpuscular Volume 98.2 fL (80-94); Mean Platelet Vol. 11.1 fl (6.2-12.0); Monocyte# 0.95 X10^3/uL; Monocyte% 15.4 % (0-10); NRBC Flagged by Analyzer 0 % (0-5); Neutrophil # 3.47 X10^3/uL (2.7-7.7); Neutrophil % 56.5 % (47-70); Platelet Count 234 K/mm3 (150-450); RBC Distribution Width CV 15.3 % (11.6-14.6); RBC Distribution Width SD 55.7 fl (35.1-43.9); Red Blood Count 4.44 M/mm3 (4.6-6.2); White Blood Count 6.2 K/mm3 (4.4-11.0)
[2024-04-25 06:35] LABS: Anion Gap 6 (5-15); BUN 36 mg/dL (7-18); BUN/Creat Ratio 23.2 RATIO (10-20); Calcium,Total 8.7 mg/dL (8.5-10.1); Chloride 106 mmol/L (98-107); Creatinine, Serum 1.55 mg/dL (0.70-1.30); EST Glomerular Filtration Rate 46 mL/min (>60); Est Glom Filt Rate - Afr Amer 55 mL/min (>60); Estimated Creatinine Clearance 37.15 ml/min; Glucose 101 mg/dL (74-106); Potassium 3.5 mmol/L (3.5-5.1); Sodium Level 139 mmol/L (136-145)
[2024-04-25] MEDS: Vitamin B Comp W-C Capsule 1 CAP PO ×2 (08:15→17:11)
[2024-04-25] MEDS: DULoxetine Hcl 30 MG Capsule PO ×2 (08:15→22:02)
[2024-04-25] MEDS: Ensure Plus High Protein 120 ML LIQUID PO ×3 (08:15→17:20)
[2024-04-25] MEDS: APIXABAN 2.5 MG TABLET (WCH) PO ×2 (08:16→22:02)
[2024-04-25] MEDS: Empagliflozin 10 MG Tablet PO (08:16)
[2024-04-25] MEDS: Pantoprazole Sodium 40 MG Tablet PO ×2 (08:16→22:02)
[2024-04-25] MEDS: Fluticasone 0.05% 1 SPRAY NASAL.SRY NASAL ×2 (08:21→22:01)
[2024-04-25] MEDS: Menthol/Lanolin/Calamine/Znox 113 GM Tube 1 APPLIC TOPICAL ×2 (08:23→22:00)
[2024-04-25] MEDS: Tuberculin,Purif.prot.deriv. 50 TU/ML Vial 0.1 ML ID (13:35)
[2024-04-25 14:45] VITALS: BP 101/54; PULSE 92; RESP 19; TEMP 35.9; O2SAT 95
[2024-04-25] MEDS: 0.9% Saline Lock 10 ML Syringe IV ×2 (17:14→22:13)
[2024-04-25 22:00] VITALS: PULSE 54; O2SAT 98
[2024-04-25] MEDS: Senna/Docusate Sodium 1 Tablet PO (22:03)
[2024-04-25] MEDS: Atorvastatin Calcium 40 MG Tablet PO (22:03)
[2024-04-26 06:00] VITALS: BMI 22.6
[2024-04-26] MEDS: Acetaminophen 500 MG Tablet 1000 MG PO ×3 (06:00→21:22)
[2024-04-26] MEDS: Sucralfate 1 GM Tablet PO ×2 (06:00→16:04)
[2024-04-26] MEDS: Fluticasone 0.05% 1 SPRAY NASAL.SRY NASAL (08:25)
[2024-04-26] MEDS: Vitamin B Comp W-C Capsule 1 CAP PO ×2 (08:25→16:04)
[2024-04-26] MEDS: Ensure Plus High Protein 120 ML LIQUID PO ×3 (08:25→16:55)
[2024-04-26] MEDS: Empagliflozin 10 MG Tablet PO (08:26)
[2024-04-26] MEDS: Menthol/Lanolin/Calamine/Znox 113 GM Tube 1 APPLIC TOPICAL ×2 (08:26→21:17)
[2024-04-26] MEDS: DULoxetine Hcl 30 MG Capsule PO ×2 (08:26→21:20)
[2024-04-26] MEDS: APIXABAN 2.5 MG TABLET (WCH) PO ×2 (08:26→21:20)
[2024-04-26] MEDS: Pantoprazole Sodium 40 MG Tablet PO ×2 (08:26→21:21)
[2024-04-26] MEDS: Senna/Docusate Sodium 1 Tablet PO ×2 (08:26→21:21)
[2024-04-26 10:16] VITALS: BP 111/55; PULSE 52; RESP 17; TEMP 36.2; O2SAT 98
--- NOTE | 2024-04-26 12:47 | NURSING ---
Updated that another patient on the unit tested covid positive. He didn't want family called, said he will update his .
[2024-04-26] MEDS: 0.9% Saline Lock 10 ML Syringe IV (21:14)
[2024-04-26] MEDS: Atorvastatin Calcium 40 MG Tablet PO (21:21)
[2024-04-27 05:48] VITALS: PULSE 52; O2SAT 98
[2024-04-27 06:00] VITALS: BMI 23.0
[2024-04-27] MEDS: Sucralfate 1 GM Tablet PO ×2 (06:30→16:01)
[2024-04-27] MEDS: Acetaminophen 500 MG Tablet 1000 MG PO ×3 (06:30→22:01)
[2024-04-27] MEDS: Vitamin B Comp W-C Capsule 1 CAP PO ×2 (08:05→16:01)
[2024-04-27] MEDS: Ensure Plus High Protein 120 ML LIQUID PO ×3 (08:05→17:16)
[2024-04-27] MEDS: Empagliflozin 10 MG Tablet PO (08:06)
[2024-04-27] MEDS: DULoxetine Hcl 30 MG Capsule PO ×2 (08:06→22:02)
[2024-04-27] MEDS: APIXABAN 2.5 MG TABLET (WCH) PO ×2 (08:06→22:02)
[2024-04-27] MEDS: Menthol/Lanolin/Calamine/Znox 113 GM Tube 1 APPLIC TOPICAL (08:06)
[2024-04-27] MEDS: Pantoprazole Sodium 40 MG Tablet PO ×2 (08:06→22:02)
[2024-04-27] MEDS: Senna/Docusate Sodium 1 Tablet PO (08:06)
[2024-04-27 09:58] VITALS: BP 113/51; PULSE 52; RESP 18; TEMP 36.5; O2SAT 98
[2024-04-27] MEDS: Atorvastatin Calcium 40 MG Tablet PO (22:03)
[2024-04-28 05:59] VITALS: BMI 23.1
[2024-04-28] MEDS: Acetaminophen 500 MG Tablet 1000 MG PO ×3 (05:59→22:18)
[2024-04-28] MEDS: Sucralfate 1 GM Tablet PO ×2 (05:59→14:01)
[2024-04-28] MEDS: APIXABAN 2.5 MG TABLET (WCH) PO ×2 (08:23→22:17)
[2024-04-28] MEDS: Senna/Docusate Sodium 1 Tablet PO ×2 (08:23→22:18)
[2024-04-28] MEDS: Vitamin B Comp W-C Capsule 1 CAP PO ×2 (08:23→17:37)
[2024-04-28] MEDS: Menthol/Lanolin/Calamine/Znox 113 GM Tube 1 APPLIC TOPICAL ×2 (08:23→22:15)
[2024-04-28] MEDS: Ensure Plus High Protein 120 ML LIQUID PO ×3 (08:23→17:37)
[2024-04-28] MEDS: DULoxetine Hcl 30 MG Capsule PO ×2 (08:23→22:17)
[2024-04-28] MEDS: Pantoprazole Sodium 40 MG Tablet PO ×2 (08:23→22:18)
[2024-04-28] MEDS: Empagliflozin 10 MG Tablet PO (08:23)
[2024-04-28 09:21] VITALS: BP 105/51; PULSE 51; RESP 16; TEMP 36.4; O2SAT 95
[2024-04-28 22:00] VITALS: PULSE 54; O2SAT 99
[2024-04-28] MEDS: Atorvastatin Calcium 40 MG Tablet PO (22:18)
[2024-04-29 05:41] VITALS: BMI 23.3
[2024-04-29 05:53] VITALS: PULSE 51; O2SAT 92
[2024-04-29] MEDS: Acetaminophen 500 MG Tablet 1000 MG PO ×2 (05:59→21:41)
[2024-04-29] MEDS: Sucralfate 1 GM Tablet PO ×2 (06:00→18:07)
[2024-04-29] MEDS: Ensure Plus High Protein 120 ML LIQUID PO ×2 (09:25→21:40)
[2024-04-29] MEDS: APIXABAN 2.5 MG TABLET (WCH) PO ×2 (09:25→21:40)
[2024-04-29] MEDS: DULoxetine Hcl 30 MG Capsule PO ×2 (09:26→21:41)
[2024-04-29] MEDS: Fluticasone 0.05% 1 SPRAY NASAL.SRY NASAL (09:26)
[2024-04-29] MEDS: Senna/Docusate Sodium 1 Tablet PO ×2 (09:26→21:42)
[2024-04-29] MEDS: Vitamin B Comp W-C Capsule 1 CAP PO ×2 (09:26→18:07)
[2024-04-29] MEDS: Pantoprazole Sodium 40 MG Tablet PO ×2 (09:26→21:41)
[2024-04-29] MEDS: Empagliflozin 10 MG Tablet PO (09:26)
[2024-04-29] MEDS: Menthol/Lanolin/Calamine/Znox 113 GM Tube 1 APPLIC TOPICAL ×2 (09:28→21:44)
--- NOTE | 2024-04-29 11:05 | WOUNDNOTE ---
In to reassess buttocks. still some redness noted but skin blanches. no open areas noted.
[2024-04-29 12:55] VITALS: BP 105/49; PULSE 74; RESP 14; TEMP 36.8; O2SAT 99
[2024-04-29] MEDS: Atorvastatin Calcium 40 MG Tablet PO (21:41)
[2024-04-30] MEDS: Acetaminophen 500 MG Tablet 1000 MG PO ×2 (05:33→21:05)
[2024-04-30] MEDS: Sucralfate 1 GM Tablet PO ×2 (05:33→16:07)
[2024-04-30 05:38] VITALS: BMI 23.2
[2024-04-30 06:00] VITALS: BMI 22.8
[2024-04-30 09:20] VITALS: BP 106/58; PULSE 51; RESP 16; O2SAT 97
[2024-04-30] MEDS: Senna/Docusate Sodium 1 Tablet PO ×2 (09:21→21:06)
[2024-04-30] MEDS: Empagliflozin 10 MG Tablet PO (09:21)
[2024-04-30] MEDS: Vitamin B Comp W-C Capsule 1 CAP PO ×2 (09:21→17:53)
[2024-04-30] MEDS: Pantoprazole Sodium 40 MG Tablet PO ×2 (09:21→21:06)
[2024-04-30] MEDS: APIXABAN 2.5 MG TABLET (WCH) PO ×2 (09:21→21:05)
[2024-04-30] MEDS: DULoxetine Hcl 30 MG Capsule PO ×2 (09:21→21:07)
[2024-04-30] MEDS: Menthol/Lanolin/Calamine/Znox 113 GM Tube 1 APPLIC TOPICAL ×2 (09:24→21:04)
[2024-04-30] MEDS: Ensure Plus High Protein 120 ML LIQUID PO ×2 (09:33→21:09)
[2024-04-30 10:00] VITALS: PULSE 51; RESP 16
--- NOTE | 2024-04-30 10:24 | CASEMGMT ---
Social Work SW submitted referral via [facility] Guide to [facility]. JOSEP Barnhart
--- NOTE | 2024-04-30 10:42 | CASEMGMT ---
Social Work SW met with patient at bedside to discuss discharge plans. Patient informed SW that he is ready to discharge. Patient inquired about home health care services. SW discussed referral to [facility]; able to accept for PT/OT/SN. SW discussed SOC within 24/hr of discharge. Patient is agreeable to home with home health with SOC Monday, 05/03. Patient denies any DME need at this time. Discharge 05/02/2024: Home with [facility] PT/OT/SN JOSEP Barnhart
--- NOTE | 2024-04-30 12:15 | NURSING ---
present at bedside. updated both that a pt on this unit tested Covid positive today. no comments/concerns expressed at this time.
[2024-04-30 14:43] VITALS: TEMP 36.8
--- NOTE | 2024-04-30 20:15 | DS.PCM_ITS ---
Providers Date of Admission: 04/17/24 Primary Care Physician: Dr. Joelle Stern MD Reason For Visit: CHF RECURRENT FALLS Diagnosis Discharge Diagnosis (1) Debility: Status: Acute Code(s): R53.81 - Other malaise (2) Fall: Status: Inactive Code(s): W19.XXXA - Unspecified fall, initial encounter (3) Acute on chronic HFrEF (heart failure with reduced ejection fraction): Status: Resolved Code(s): I50.23 - Acute on chronic systolic (congestive) heart failure (4) Elevated troponin: Status: Acute Code(s): R79.89 - Other specified abnormal findings of blood chemistry (5) Hyperlipidemia: Status: Acute Code(s): E78.5 - Hyperlipidemia, unspecified (6) Depression: Status: Acute Code(s): F32.9 - Major depressive disorder, single episode, unspecified (7) Allergic rhinitis: Status: Acute Code(s): J30.9 - Allergic rhinitis, unspecified (8) Duodenal ulcer: Status: Acute Code(s): K26.9 - Duodenal ulcer, unspecified as acute or chronic, without hemorrhage or perforation (9) Leg cramps: Status: Acute Code(s): R25.2 - Cramp and spasm (10) Insomnia: Status: Acute Code(s): G47.00 - Insomnia, unspecified (11) Atrial fibrillation: Status: Acute Code(s): I48.91 - Unspecified atrial fibrillation Plan 84 year old male with below past medical history hospitalized for multiple falls, acute on chronic HFrEF, complicated elevated troponin, NSTEMI ruled out, admitted to TCU with debility, here for rehabilitation, strengthening, prior to discharge home with . * Debility - PT/OT. * Cognition - ST. * Pain - Tylenol 1000mg q8. * Bowel - senna/colace 1 tablet bid. * Adult immunization - Administer pneumonia vaccine, covid vaccine, flu vaccine as appropriate. * DVT prophylaxis - on Eliquis. * Atrial fibrillation - Metoprolol 6.25mg bid, Eliquis 2.5mg bid. * Hyperlipidemia - Atorvastatin 40mg qhs. * Acute on chronic HFrEF - Metoprolol 6.25mg bid, Entresto 24/26mg bid, Jardiance 10mg daily, Aldactone 12.5mg daily, Bumex 2mg bidlx. * Depression - Duloxetine 30mg bid, stable chronic skilled nursing use, GDR not recommended. * Nutrition - Ensure Plus 120ml tidcm. * Allergic rhinitis - Flonase 1 spray nasal bid. * Skin irritation - Calmoseptine topical bid prn. * Duodenal ulcer - Pantoprazole 40mg bid, Sucralfate 1gm bid. * Leg cramps - Vitamin B complex 1 capsule bid. * Insomnia - Zolpidem 5mg qhs prn, stable chronic skilled nursing use, GDR not recommended. Medications at Discharge Home Medications vitamin B complex 1 cap PO BID vitamin 10/11/21 rosuvastatin 20 mg tablet 20 mg PO DAILY cholesterol 12/16/21 apixaban 2.5 mg tablet (Eliquis) 2.5 mg PO BID blood thinner 03/23/23 duloxetine 30 mg capsule,delayed release 30 mg PO BID DEPRESSION 12/15/23 fluticasone propionate 50 mcg/actuation nasal spray,suspension 1 spray NASAL BID lungs/asthma 30 days #16 grams 12/27/23 pantoprazole 40 mg tablet,delayed release (Protonix) 40 mg PO BID acid reflux 30 days #60 tabs 12/27/23 sucralfate 1 gram tablet (Carafate) 1 g PO BID stomach 30 days #60 tabs 12/27/23 zolpidem 5 mg tablet 5 mg PO QHS PRN Insomnia 04/05/24 acetaminophen 500 mg tablet 1,000 mg (2 x 500 mg) PO Q8 #0 tabs 04/30/24 empagliflozin 10 mg tablet (Jardiance) 10 mg PO DAILY 30 days #30 tabs 04/30/24 Hospital Course Operations None Procedures None Summary of Care Provided Minutes Spent on Discharge: 35 Hospital Course: 84 year old male with below past medical history hospitalized for multiple falls, acute on chronic HFrEF, complicated elevated troponin, NSTEMI ruled out, admitted to TCU with debility, here for rehabilitation, strengthening, prior to discharge home with . Guideline directed medical therapy for HFrEF intolerable due to hypotension, bradycardia except for Jardiance. Discharge home with 05/02/2024, [facility] PT/OT/SN. Physical Exam Const alert General Appearance: cooperative HEENT normocephalic Eyes PERRL and EOMs intact bilaterally Neck supple, no JVD and no carotid bruits Resp normal respiratory effort, normal air movement and clear to auscultation bilaterally Cardio regular rate and regular rhythm GI normal to inspection, nondistended, normoactive bowel sounds, non-tender and non-distended Extremity normal capillary refill General Extremity: Negative for edema Skin no rashes or lesions noted General Skin Exam: no breakdown Psych affect normal Appearance: appropriate Weight / BMI Weight Weight: 73.936 kg Body Mass Index (BMI) 22.8 ABG / Lab / Microbiology Data 04/25/24 05:27 04/25/24 05:27 Microbiology: Microbiology 04/26/24 10:00 Nasal Secretion SARS-CoV-2 Antigen (Rapid) - Final Meaningful Use Info Meaningful Use Meaningful Use Diagnoses (Choose all that apply): None applicable Ischemic Stroke Statin Dosing Therapy Reference: STATIN DOSE THERAPY REFERENCE: * Patients > 75 years receive moderate or high dose statin therapy. * Patients 75 years or YOUNGER should receive HIGH intensity statin dose unless contraindicated. You will be required to document reason for non-treatment if statin daily dose does not meet guidelines. HIGH DOSE STATIN THERAPY DAILY Atorvastatin > than or = to 40 mg Rosuvastatin > than or = to 20 mg Amlodipine + Atorvastatin > than or = to 2.5/40 mg Ezetimibe + Simvastatin 10/80 mg Simvastatin 80mg Discharge Plan Admission Admit Date/Time: 04/17/24 13:50 Primary Reason for Your Visit: Debility. Attending Provider: Brett Goldberg Chi Primary Care Provider: Joelle Stern Instructions Additional Instructions / Restrictions: Discharge home with 05/02/2024, [facility] PT/OT/SN. Discharge Orders/Prescriptions Prescriptions: New acetaminophen 500 mg Tablet 1,000 mg PO Q8 Qty: 0 0RF Jardiance 10 mg Tablet 10 mg PO DAILY 30 Days Qty: 30 0RF Continued rosuvastatin 20 mg tablet 20 mg PO DAILY Eliquis 2.5 mg tablet 2.5 mg PO BID vitamin B complex Capsule 1 cap PO BID duloxetine 30 mg capsule,delayed release(DR/EC) 30 mg PO BID fluticasone propionate 50 mcg/actuation Dane,Suspension 1 spray NASAL BID 30 Days Qty: 16 0RF pantoprazole [Protonix] 40 mg tablet,delayed release (DR/EC) 40 mg PO BID 30 Days Qty: 60 0RF sucralfate [Carafate] 1 gram tablet 1 g PO BID 30 Days Qty: 60 0RF zolpidem 5 mg Tablet 5 mg PO QHS PRN (Reason: Insomnia) Patient Comments: TOOK 2 TABLETS ON 04/13/24 Discontinued folic acid 1 mg Tablet 1 mg PO BID acetaminophen 500 mg Tablet 1,000 mg PO Q8 Qty: 0 0RF spironolactone 25 mg tablet 25 mg PO DAILY menthol-zinc oxide [Calmoseptine] 0.44-20.6 % Ointment 1 applic topical BID PRN (Reason: skin irritation) Protocol: *Topical Application Instructions APPLICATION INSTRUCTIONS: bilateral buttocks bumetanide 2 mg Tablet 2 mg PO BIDLX Qty: 0 0RF sennosides-docusate sodium [Stool Softener-Stimulant Laxat] 8.6-50 mg Tablet 1 tab PO BID Qty: 0 0RF metoprolol tartrate 25 mg Tablet 12.5 mg PO BID Qty: 0 0RF Referrals / Follow Up: Joelle Stern MD [Primary Care Provider] - Disposition Disposition (needs filled in before D/C Order can be placed): Home Health Service
--- NOTE | 2024-04-30 20:35 | MDS.RN ---
Information for the MDS was obtained from review of the clinical record, interview of resident, staff, and direct observation of resident?s care.
[2024-04-30 20:45] VITALS: BMI 22.8
[2024-04-30] MEDS: Atorvastatin Calcium 40 MG Tablet PO (21:04)
[2024-05-01 05:34] VITALS: BMI 23.1
[2024-05-01] MEDS: Acetaminophen 500 MG Tablet 1000 MG PO ×2 (06:00→20:32)
[2024-05-01] MEDS: Sucralfate 1 GM Tablet PO ×2 (06:00→16:29)
[2024-05-01] MEDS: Vitamin B Comp W-C Capsule 1 CAP PO ×2 (09:13→17:31)
[2024-05-01] MEDS: DULoxetine Hcl 30 MG Capsule PO ×2 (09:13→20:34)
[2024-05-01] MEDS: Pantoprazole Sodium 40 MG Tablet PO ×2 (09:14→20:32)
[2024-05-01] MEDS: APIXABAN 2.5 MG TABLET (WCH) PO ×2 (09:14→20:34)
[2024-05-01] MEDS: Senna/Docusate Sodium 1 Tablet PO ×2 (09:14→20:33)
[2024-05-01] MEDS: Empagliflozin 10 MG Tablet PO (09:14)
[2024-05-01] MEDS: Ensure Plus High Protein 120 ML LIQUID PO (09:17)
[2024-05-01] MEDS: Menthol/Lanolin/Calamine/Znox 113 GM Tube 1 APPLIC TOPICAL ×2 (09:19→20:31)
[2024-05-01 13:47] VITALS: BP 113/62; PULSE 50; RESP 18; TEMP 36.1; O2SAT 99
[2024-05-01 20:00] VITALS: PULSE 52; O2SAT 100
[2024-05-01] MEDS: Atorvastatin Calcium 40 MG Tablet PO (20:33)
[2024-05-02 05:30] LABS: Absolute Lymphocyte Count 1.19 X10^3/uL (0.83-4.51); Absolute Neutrophil Count 4.5 X10^3/uL (2.0-7.7); Basophil# 0.05 X10^3/uL; Basophil% 0.7 % (0-1); Eosinophil# 0.16 X10^3/uL; Eosinophils% 2.3 % (0-5); Hematocrit 40.1 % (40-54); Hemoglobin 12.7 g/dL (13.0-16.5); Lymphocyte # 1.19 X10^3/ul (0.83-4.51); Lymphocyte % 17.2 % (19-41); Mean Corp Hgb Conc 31.7 g/dL (32-36); Mean Corpuscular Hgb 30.7 pg (27.0-32.0); Mean Corpuscular Volume 96.9 fL (80-94); Mean Platelet Vol. 10.5 fl (6.2-12.0); Monocyte# 0.97 X10^3/uL; NRBC Flagged by Analyzer 0 % (0-5); Neutrophil # 4.51 X10^3/uL (2.7-7.7); Neutrophil % 65.4 % (47-70); Platelet Count 289 K/mm3 (150-450); RBC Distribution Width CV 14.9 % (11.6-14.6); RBC Distribution Width SD 53.1 fl (35.1-43.9); Red Blood Count 4.14 M/mm3 (4.6-6.2); White Blood Count 6.9 K/mm3 (4.4-11.0)
[2024-05-02 05:48] VITALS: BMI 23.0
[2024-05-02 05:56] VITALS: PULSE 52; O2SAT 99
[2024-05-02] MEDS: Sucralfate 1 GM Tablet PO (05:59)
[2024-05-02] MEDS: Acetaminophen 500 MG Tablet 1000 MG PO (05:59)
[2024-05-02 06:29] LABS: Anion Gap 4 (5-15); BUN 33 mg/dL (7-18); BUN/Creat Ratio 21.4 RATIO (10-20); Calcium,Total 8.7 mg/dL (8.5-10.1); Chloride 105 mmol/L (98-107); Creatinine, Serum 1.54 mg/dL (0.70-1.30); EST Glomerular Filtration Rate 46 mL/min (>60); Est Glom Filt Rate - Afr Amer 56 mL/min (>60); Estimated Creatinine Clearance 37.68 ml/min; Glucose 97 mg/dL (74-106); Potassium 4.2 mmol/L (3.5-5.1); Sodium Level 135 mmol/L (136-145)
[2024-05-02] MEDS: Vitamin B Comp W-C Capsule 1 CAP PO (08:04)
[2024-05-02] MEDS: Empagliflozin 10 MG Tablet PO (08:05)
[2024-05-02] MEDS: Senna/Docusate Sodium 1 Tablet PO (08:05)
[2024-05-02] MEDS: Pantoprazole Sodium 40 MG Tablet PO (08:05)
[2024-05-02] MEDS: Menthol/Lanolin/Calamine/Znox 113 GM Tube 1 APPLIC TOPICAL (08:05)
[2024-05-02] MEDS: APIXABAN 2.5 MG TABLET (WCH) PO (08:06)
[2024-05-02] MEDS: DULoxetine Hcl 30 MG Capsule PO (08:06)
[2024-05-02 08:13] VITALS: BP 101/47; PULSE 61; RESP 18; TEMP 36.3; O2SAT 92
--- NOTE | 2024-05-02 09:30 | CASEMGMT ---
Social Work SW met with patient at bedside to complete discharge MDS. Patient BIM () and PhQ-9 (05/16). Patient's PhQ-9 score indicates for mild depression. SW and patient explored responses. Patient informed SW that he has felt down due to the progression of heart disease. Patient informed SW that he has been down at different frequencies when he thinks about his medical condition. Patient stated I can get better with physical therapy and occupational therapy, but I have a chronic disease. Patient acknowledge the ability to functionally improve, but expressed concerns about managing heart disease. 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 Patient informed SW that he will be arranging follow up appointment. Patient expressed concerns about blood pressure. SW informed bedside RN of patient concerns regarding his blood pressure. Patient informed SW that he has a history of poor sleeping habits. 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 Patient informed SW that he stopped taking sleeping pills and feel he has been trying to develop better sleeping patterns. The patient informed SW that he sleeps mid day and feel he is adjusting. Patient expressed concerns for his caring for him and adjusting their life due to their medical condition and functional status. 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 Patient is aware of [place] [facility]. Patient acknowledge having supportive friends and family to keep his spirits up. SW encouraged patient to continue to work with secure base. Bedside RN met with patient at bedside to address concerns regarding blood pressure. JOSEP Barnhart
[2024-05-02 10:47] VITALS: BP 101/47; PULSE 61; RESP 18; TEMP 36.3; O2SAT 92
== END 2024-05-02 10:25 | disposition home health service (06) | DRG 291 ==
PROVIDERS: Admitting Provider Family Medicine Geriatric Medicine; PCP Internal Medicine; Visit Provider Family Medicine Geriatric Medicine
DX: I13.0 Hypertensive heart and chronic kidney disease with heart failure and stage 1 through stage 4 chronic kidney disease, or unspecified chronic kidney disease (principal); I50.23 Acute on chronic systolic (congestive) heart failure; K26.9 Duodenal ulcer, unspecified as acute or chronic, without hemorrhage or perforation; I42.8 Other cardiomyopathies; Z79.01 Long term (current) use of anticoagulants; N18.30 Chronic kidney disease, stage 3 unspecified; I48.0 Paroxysmal atrial fibrillation; F32.9 Major depressive disorder, single episode, unspecified; E78.5 Hyperlipidemia, unspecified; J30.9 Allergic rhinitis, unspecified; G47.33 Obstructive sleep apnea (adult) (pediatric); G47.00 Insomnia, unspecified; Z79.899 Other long term (current) drug therapy; Z95.0 Presence of cardiac pacemaker; Z79.51 Long term (current) use of inhaled steroids
CPT/HCPCS: 36415; 80048; 85025; 87811; 92523; 97110; 97116; 97162; 97166; 97530; 97535; J7040; A4216

== ENCOUNTER → 2024-05-21 | Outpatient (CLI) | payer MEDICARE, SELFPAY ==
[2024-05-21 15:49] LABS: Potassium 5.2 mmol/L (3.5-5.1)
== END | disposition home or self-care (01) ==
LOC: LABSPEC 15:29
PROVIDERS: PCP Internal Medicine; Referring Provider Internal Medicine; Visit Provider Internal Medicine
DX: E87.5 Hyperkalemia (principal)
CPT/HCPCS: 84132

== ENCOUNTER → 2024-05-31 | Outpatient (CLI) | payer MEDICARE, SELFPAY ==
[2024-05-31 16:26] LABS: Anion Gap 8 (5-15); BUN 23 mg/dL (7-18); BUN/Creat Ratio 13.9 RATIO (10-20); Calcium,Total 8.6 mg/dL (8.5-10.1); Chloride 109 mmol/L (98-107); Creatinine, Serum 1.65 mg/dL (0.70-1.30); EST Glomerular Filtration Rate 42 mL/min (>60); Est Glom Filt Rate - Afr Amer 51 mL/min (>60); Glucose 195 mg/dL (74-106); Potassium 4.1 mmol/L (3.5-5.1); Sodium Level 139 mmol/L (136-145)
== END | disposition home or self-care (01) ==
LOC: LABSPEC 15:36
PROVIDERS: Nurse Practitioner Family; PCP Internal Medicine; Referring Provider Internal Medicine Cardiovascular Disease; Visit Provider Internal Medicine Cardiovascular Disease
DX: E87.5 Hyperkalemia (principal); I13.0 Hypertensive heart and chronic kidney disease with heart failure and stage 1 through stage 4 chronic kidney disease, or unspecified chronic kidney disease; I50.23 Acute on chronic systolic (congestive) heart failure; N18.30 Chronic kidney disease, stage 3 unspecified; R60.9 Edema, unspecified; R09.89 Other specified symptoms and signs involving the circulatory and respiratory systems
CPT/HCPCS: 80048

== ENCOUNTER 2024-06-05 13:05 | Outpatient (CLI) | payer MEDICARE, SELFPAY ==
[2024-06-06 09:18] LABS: Anion Gap 11 (5-15); BUN 30 mg/dL (7-18); BUN/Creat Ratio 19.9 RATIO (10-20); Calcium,Total 9.4 mg/dL (8.5-10.1); Chloride 108 mmol/L (98-107); Creatinine, Serum 1.51 mg/dL (0.70-1.30); EST Glomerular Filtration Rate 47 mL/min (>60); Est Glom Filt Rate - Afr Amer 57 mL/min (>60); Glucose 112 mg/dL (74-106); Potassium 5.2 mmol/L (3.5-5.1); Sodium Level 142 mmol/L (136-145)
== END 2024-06-05 23:59 | disposition home or self-care (01) ==
LOC: LABSPEC 13:07
PROVIDERS: PCP Internal Medicine; Referring Provider Internal Medicine; Visit Provider Internal Medicine
DX: N17.9 Acute kidney failure, unspecified (principal); I50.22 Chronic systolic (congestive) heart failure; N18.9 Chronic kidney disease, unspecified
CPT/HCPCS: 80048; 83880

== ENCOUNTER → 2024-06-12 | Outpatient (CLI) | payer MEDICARE, SELFPAY ==
--- NOTE | 2024-06-12 14:59 | ECHOL_ITS ---
Version 2 Reason For Study: FOLLOW UP LV RECOVERY Procedure This was a limited 2D transthoracic echocardiogram. Myocardial strain analysis was performed in this exam to aid in the assessment of cardiac function. Exam performed in department. Left Ventricle Normal LV size. Severe concentric left ventricular hypertrophy. The left ventricular ejection fraction is 20 %. There is severe global hypokinesis of the left ventricle. Right Ventricle Normal RV size. ICD or pacer leads identified within the right ventricle. Normal systolic function. Mitral Valve Bileaflet diffuse mitral valve thickening. Mild-Moderate (1-2+) eccentric mitral valve insufficiency. Aortic Valve Trisinus/trileaflet aortic valve. Mild focal aortic valve calcification. Mild (1+) aortic valve insufficiency. Pulmonic Valve Normal pulmonic valve. Great Vessels Normal aortic root. The pulmonary artery is normal size. The inferior vena cava is dilated. Pericardium/Pleural Trivial pericardial effusion. Small left pleural effusion. MMode/2D Measurements & Calculations LVIDd: 4.5 cm IVSd: 1.7 cm LVOT diam: 2.0 cm LVIDs: 3.2 cm LVPWd: 1.7 cm LVOT area: 3.1 cm2 RVDd: 4.7 cm FS: 28.8 % Ao root diam: 3.4 cm LAV(MOD-bp): 57.1 ml LVAd ap4: 23.1 cm2 LAV(MOD-bp) Indexed: 29.1 ml/m2 LVLd ap4: 7.2 cm LAV(MOD-sp2): 70.5 ml EDV(MOD-sp4): 61.7 ml LAV(MOD-sp4): 45.5 ml EDV(sp4-el): 62.9 ml LVAs ap4: 20.9 cm2 LVLs ap4: 7.4 cm ESV(MOD-sp4): 48.5 ml ESV(sp4-el): 49.6 ml EF(MOD-sp4): 21.5 % EF(sp4-el): 21.1 % SV(MOD-sp4): 13.3 ml SV(MOD-sp2): 21.0 ml LVAd ap2: 25.9 cm2 LVLd ap2: 7.4 cm EDV(MOD-sp2): 73.3 ml EDV(sp2-el): 77.0 ml LVAs ap2: 21.5 cm2 LVLs ap2: 7.0 cm ESV(MOD-sp2): 52.3 ml ESV(sp2-el): 56.4 ml EF(MOD-sp2): 28.6 % SV(sp4-el): 13.3 ml LA A4 area: 18.3 cm2 LA dimension(2D): 4.5 cm TAPSE: 1.1 cm RA A4 area: 19.7 cm2 Time Measurements MV dec time: 0.14 sec Doppler Measurements & Calculations MV E max sameer: 83.9 cm/sec Lat Peak E' Sameer: 4.1 cm/sec Med Peak E' Sameer: 2.8 cm/sec MV A max sameer: 59.3 cm/sec E/E' lat: 20.4 E/E' med: 29.4 MV E/A: 1.4 MV dec slope: 597.2 cm/sec2 Ao V2 max: 86.8 cm/sec TR max sameer: 245.4 cm/sec Ao max P.0 mmHg TR max P.1 mmHg Ao V2 mean: 65.8 cm/sec Ao mean P.9 mmHg Ao V2 VTI: 15.0 cm ECHO/Echo, Limited Study Interpretation Summary Normal LV size. The left ventricular ejection fraction is 20 %. Severe concentric left ventricular hypertrophy. Mild-Moderate (1-2+) eccentric mitral valve insufficiency. Mild (1+) aortic valve insufficiency. The global longitudinal strain is severely abnormal. The global longitudinal st rain = -6.2% (abnormal). Compared to previous study, the left ventricular systolic function is the same.. Ordering Physician: Hitesh Esqueda Referring Physician: Joelle Stern M.D. Performed By: Gina Beavers RDCS
== END | disposition home or self-care (01) ==
LOC: CVS 14:55
PROVIDERS: PCP Internal Medicine; Referring Provider Internal Medicine Cardiovascular Disease; Visit Provider Internal Medicine Cardiovascular Disease
DX: R06.02 Shortness of breath (principal)
CPT/HCPCS: 93308

== ENCOUNTER → 2024-06-26 | Outpatient (CLI) | payer MEDICARE, SELFPAY ==
[2024-06-26 11:27] LABS: Hemoglobin 14.2 g/dL (13.0-16.5); Mean Corp Hgb Conc 31.6 g/dL (32-36); Mean Corpuscular Volume 98.3 fL (80-94); Mean Platelet Vol. 11.8 fl (6.2-12.0); Platelet Count 222 K/mm3 (150-450); RBC Distribution Width CV 15.9 % (11.6-14.6); RBC Distribution Width SD 57.6 fl (35.1-43.9); Red Blood Count 4.58 M/mm3 (4.6-6.2); White Blood Count 7.2 K/mm3 (4.4-11.0)
[2024-06-26 11:49] LABS: BNP,B-Type NATRIURETIC PEPTIDE 622.4 pg/mL (0-100)
[2024-06-26 11:57] LABS: ALB/GLOB Ratio 0.7 RATIO (0.9-2.4); AST(SGOT) 52 U/L (15-37); Alanine Aminotransfer ALT/SGPT 32 U/L (16-61); Alkaline Phosphatase 151 U/L (45-117); Anion Gap 4 (5-15); BUN 33 mg/dL (7-18); Calcium,Total 9.2 mg/dL (8.5-10.1); Chloride 115 mmol/L (98-107); Creatinine, Serum 1.65 mg/dL (0.70-1.30); EST Glomerular Filtration Rate 42 mL/min (>60); Est Glom Filt Rate - Afr Amer 51 mL/min (>60); Globulin 4.6 g/dL (2.2-4.2); Glucose 90 mg/dL (74-106); Potassium 4.3 mmol/L (3.5-5.1); Protein, Total 7.6 g/dL (6.4-8.2); Sodium Level 141 mmol/L (136-145)
== END | disposition home or self-care (01) ==
PROVIDERS: PCP Internal Medicine; Referring Provider Internal Medicine Cardiovascular Disease; Visit Provider Internal Medicine Cardiovascular Disease
DX: R06.00 Dyspnea, unspecified (principal); I51.9 Heart disease, unspecified; R60.9 Edema, unspecified
CPT/HCPCS: 36415; 80053; 83880; 85027

== ENCOUNTER → 2024-07-04 | Outpatient (CLI) | payer MEDICARE, SELFPAY ==
--- NOTE | 2024-07-04 13:04 | CR.HP_ITS ---
CR - History & Physical General Arrival date:: 07/04/24 Arrival time:: 13:04 Date of Referral:: 06/26/24 Date of CR Evaluation:: 07/04/24 Referring Physician: Dr. Esqueda Primary Diagnosis: HF w/EF<35% 12/25/23 onset History of Present Cardiac Event Onset Date Heart Failure EF <35%:: Yes Medications Ambulatory Orders ?Medication ?Instructions ?Recorded vitamin B complex 1 cap PO BID vitamin 10/11/21 rosuvastatin 20 mg tablet 20 mg PO DAILY cholesterol 12/16/21 duloxetine 30 mg capsule,delayed 30 mg PO BID DEPRESSION 12/15/23 release sucralfate 1 gram tablet (Carafate) 1 g PO BID stomach 30 days #60 tabs 12/27/23 acetaminophen 500 mg tablet 1,000 mg (2 x 500 mg) PO Q8 #0 tabs 04/30/24 spironolactone 25 mg tablet 12.5 mg (1/2 x 25 mg) PO DAILY #45 05/24/24 tabs furosemide 40 mg tablet 40 mg PO DAILY PRN 05/28/24 docusate sodium 100 mg capsule 100 mg PO BID PRN 06/26/24 metoprolol tartrate 25 mg tablet 12.5 mg (1/2 x 25 mg) PO BID #30 06/26/24 tabs Allergies Allergies Iodinated Contrast Media Allergy (Severe, Verified 06/26/24 10:00) Shortness of breath iodine Allergy (Verified 06/26/24 10:00) Shortness of breath Sleep Disorder Evaluation Hx of Sleep Apnea: Yes Do you snore loudly (louder than talking or can be heard through closed doors)?: Yes (pt uses bipap) Do you often feel tired/ fatigued/ sleepy during daytime?: Yes Has anyone observed you stop breathing during sleep?: Yes History of Hypertension (for STOP score): Yes STOP Results: Positive Advanced Directives Advanced Directives Power of Propulsion Machinery Service Engineer: Yes Living Will: Yes Advance Directives Information Provided: Yes Advance Directives on File: Yes DNR Order?:: No Past Medical History Covid-19 Screening Physicial Symptoms Other Clinical Concerns Exposure Risk Pertinent Comorbidities 65 years or older:: Yes Has a serious heart condition:: Yes Has chronic kidney disease undergoing dialysis:: Yes Past Medical Illness Medical History 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) use of anticoagulants Chronic anticoagulation History of cardiac pacemaker Paroxysmal atrial fibrillation Pacemaker Sick sinus syndrome CKD (chronic kidney disease), stage III HTN (hypertension) Hyperkalemia, diminished renal excretion Atrial flutter HFrEF (heart failure with reduced ejection fraction) Obstructive sleep apnea Left bundle branch block (LBBB) Fatigue Dyspnea LVH (left ventricular hypertrophy) Left ventricular diastolic dysfunction Non-ischemic cardiomyopathy History of hay fever Prostate cancer Hyperlipidemia Depression Past Surgical History Surgical History History of right hip hemiarthroplasty History of left heart catheterization (12/17/21) Hx of appendectomy History of total bilateral knee replacement History of prostate surgery Surgical History: total knee arthroplasty Social History Smoking History Smoking Status: Never smoker Alcohol Use Alcohol Usage: Yes Substance Abuse Hx Substance Use: No Occupation Occupation (List type of work in comments):: Retired Hobbies, Recreation, Social Activities Hobbies: Other (fly fishing) Recreational Activities: I am able to engage in a few activities Social Environment Status Marital Status: Current Living Arrangements Living Environment:: Spouse Children How many children do you have?: 2 Do any of your children live nearby?: No Safety Do you feel safe in your surroundings?: Yes Assistance Do you need any assistance at home?: no Review of Systems Review of Systems Hints Review of Present Symptoms: Reports Shortness of Breath with Exertion, Wound Healing, Dizziness/Lightheadedness, Fatigue, Heart Arrhythmia/Irregularities, Appetite - Special Diet and Sleep - Normal; Denies Shortness of Breath at Rest, PVD, Operative Discomfort, Angina, Appetite - Normal or Sexual Changes Pain Pain Location: back Pain Level: 5/10 Risk Factor Assessment Chief Complaint Chief Complaint: HF w/EF<35% Vital Signs Pulse Ox: 96 Blood Pressure: 106/74 Pulse Pulse Rate: 62 Hypertension How long have you been treated?: a year ? Blood Pressure Sitting - Right Arm: 106/74 Stress Stress: Recent (moving after living in same house for 51 years) Obesity Height: 5 ft 11 in Weight:: 169 lb Weight in Pounds: 169.0 lbs Body Mass Index (BMI): 23.6 Nutritional Referral for Obesity: No Physical Inactivity Physical Inactivity: None Risk Stratification Risk Guidelines: Moderate Risk: Risk Factor for Smoking, Risk Factor for Diabetes, Risk Factor for Obesity and Risk Factor for Sedentary Lifestyle and Highest Risk: Risk Factor for Dyslipidemia, Risk Factor for Hypertension and Risk Factor for Depression For Smoking Smoking Risk Guidelines For Dyslipidemia Dyslipidemia Risk Guidelines For Diabetes Mellitus Diabetes Risk Guidelines For Obesity/Overweight Obesity/Overweight Risk Guidelines For Hypertension Hypertension Risk Guidelines For Sedentary Lifestyle Sedentary Lifestyle Risk Guidelines For Depression Depression Risk Guidelines Motivation Motivation to Participate On a scale of 1 to 10, how prepared are you to commit to attending program?: 10 What do you see as barriers to successfully being able to complete the program?: nothing What do you see as the benefits of succesfully completing the program? In other words, what do you hope to get out of participating in the program?: better quality of life Are there issues you are dealing with that will interfere with completing the program?: no Do you have a spouse or signficant other, family or friends who will help support you to complete the program?: yes
[2024-07-04 13:12] VITALS: BP 106/74; PULSE 62; O2SAT 96
--- NOTE | 2024-07-04 13:12 | CR.ITP_ITS ---
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% Personal Learning Style:: Audio/Visual Barriers to Learning: Hearing Impairment Stage of change r/t lifestyle modifications:: Contemplation Gave educational material for:: Treating Heart Disease, How The Heart Works, What it means to have Heart Disease, How Coronary Artery Disease is Diagnosed, Heart Procedures, What Heart Medications Do, Risk Factors & Modifications, Living an Active Life, Nutrition, Emotions & Heart Disease, Stress Management & Relaxation and Sleep Disorders & Heart Disease Education/Goals Cardiac Rehabilitation Goals Personal Goals: Initial Assessment: Improve management of stress and emotions, Improve energy level, Participate in home exercise program, Get back to work, or to resume activities faster, Improve knowledge of cardiac disease, Improve muscle strength and endurance, Improve diet and eating habits (eat healthier) and Control risk factors (learn risk factor modification) Scale for measuring improvement of personal goals Diagnosis & Disease Process Outcomes/Goals: Pt IDs own risk factors & lifestyle modifications by Session 10, Verbalizes symptoms of angina & response by session 3., Pt independently manages and Other Additional Outcomes/Goals: Plan/Interventions: Assist Pt to ID & engage in lifestyle modification to reduce CVD risk, Instruct on individual risk factors, Review symptoms of angina & emergency actions, Review secondary diagnosis & identify educational needs. and Other see comment 30 day Reassessments:: Not Met 30 day Reassessments:: Not Met 30 day Reassessments:: Not Met 30 day Reassessments:: Not Met Final Reassessments:: Not Met Safety Referral to Physical Therapy: No Referral to [facility] Case Management: No Fall Risk Assessed:: Yes Assistive Devices:: Wheelchair Exercise - Initial Assessment Visit Date of Eval: 07/04/24 (initial eval ) Mets: Pre-: >3 METS for 30 minutes by discharge, >5 METS for 30 minutes by discharge, >7 METS for 30 minutes by discharge and Unable to meet goal due to: (see comment below) Physician Prescribed Exercise Modalities: Adriana BELL-7, SciFit Stepper, imagooFit Pro-II Ergometer and SciFit Lateral Inspector Optical Instrument Frequency: 3x/week for 12 weeks [36 sessions] Intensity: 60-80% of age predicted maximum heart rate reserve Duration: 30 - 45 minutes Current METSs:: 3 Target Heart Rate:: 82-101 Resting Blood Pressure: 106/74 EKG Type: atypical flutter, ventricular paced with occas kashia conduction and PVC Outcomes & Goals Goals:: Verbalizes understanding of THR, RPE & goal METS by session 6, Documents in home exercise log/reports 30 min aerobic 5 day/wk by DC, Demonstrates accurate pulse taking by DC and Other additional outcome/goals: see below Intervention & Plan Exercise Program Goals: Instruct on personal THR & RPE, Instruct on MET level & personal MET goal, Show patient to take own pulse /validate performance until accurate, Instruct on home exercise and Other additional plan/int Physical Activity Home Exercise Physical Activity - Home Exercise: Safe Exercise, Warm-up, Self-monitoring, Cool-Down, Home Exercise > 30 min Daily and Sitting Time <3 hours/daily Outcomes & Goals Outcomes/Goals: Demonstrates correct Warm-up/exercise Cool-Down (S3) if = 2.5 METs, Verbalizes symptoms of exercise intolerance by Session 3 (S3), Demonstrate safe equipment use (S3) & follows exercise prescrition (6) and Other: See below Intervention & Plan Plan/Intervention: Instruct warm-up & cool-down if exercising at > 2 METs, Instruct on symptoms of exercise intolerance & actions to take, Instruct & monitor on saf, Assess intial functional capacity & safety risk and Other See below Nutrition - Initial Assessment Program Goals Nutrition Program Goals Patient has diagnosis of Hyperlipidemia (ICD E78)?: Yes Visit Date of Eval: 07/04/24 (initial eval ) Cholesterol/Lipids (Other Core Measures) Determine presence & major risk factors that modify LDL goal: Hypertension or hypertensive medication, Low HDL cholesterol <40 mg/dL*, Family history of premature CHD in Male < 55 years: female <65 yearsFa and Age men > 45 years; women >/= 55 years Outcomes/Goals: Pt IDs own risk factors & lifestyle modifications by Session 10, Verbalizes symptoms of angina & response by session 3., Pt independently manages and Other Additional Outcomes/Goals: Intervention/Plan: Advocate for lipid panel cholesterol medication if applicable, Instruct on personal lipid levels & lipid goals/NCEP guidelines, Instruct on cholesterol and Other additional plan/int Diabetes (Other Core Measures) Diabetes Type: Not Applicable Weight Mgt (Other Care) Height: 5 ft 11 in Weight:: 169 lb BMI: 23.6 Diagnosis Overweight/Obesity BMI> 30% ICD-10 E66: No Diagnosis High BMI/Morbid Obesity BMI> 35% ICD-10 Z68: No Outcomes/Goals: Pt sets, maintains & shows weight loss goal & trend during rehab and Other additional outcomes/goals Intervention/Plan: Instruct on ideal BMI & set weight loss goal w/patient, Assist pt to ID & incorporate diet changes for weight loss by S9, Refer to Structured Weight Loss program as appropriate, Encourage goal of using 250- 300dcal per session for weight loss and Other additional plan/interventions Healthy Eating Habits Will attend diet classes:: Yes Outcomes/Goals:: Consume diet rich in vegs,fruits,whole grain/high fiber,fis h,lean meat, Limit sat/trans fats,cholesterol & added salts & sugars and Other additional outcome/goals: Intervention/Plan:: Assess current eating habits and Other Additional p jihan/interventions Education Gave educational materials for:: Signs & symptoms of hypoglycemia, Signs & symptoms of hyperglycemia, Relate diabetes to coronary artery disease and Healthy eating Core - Initial Assessment Visit Date of Eval: 07/04/24 (initial eval ) Medication Compliance Preventative Medication(s):: Statin/lipid H/O mental health issues: depression, anxiety, or addiction?: Yes Doesn?t believe in the benefits of treatment?: No Believes medications are unnecessary or harmful?: No Has a concern about medication side effects?: No Expresses concern over the cost of medications?: No Outcomes/Goals: Verbalizes medications,desired effect & common side effects @ DC, Pt self-reports following medication regimen, Keeps card in wallet w/medications listed by DC and Other additional outcome/goals: Interventions/plans: Instruct on medication effects & side effects, Review medication list w/patient every two weeks, Instruct importance of taking meds as ordered & assist problem solving and Other additional Tobacco Use Tobacco Use: Non-smoker Hypertension Hypertension Diagnosis:: Hypertension ICD-10 I10 Resting Blood Pressure:: 106/74 [place] [employer] Hypertension Guidelines Outcomes/Goals: Able to verbalize/achieve optimal blood pressure <130/80, Incorporates diet changes & exercise for blood pressure control by DC and Other additional outcomes/goals Interventions/plan: Instruct on optimal blood pressure, hypertension & medications, Instruct on effects of sodium, alcohol, stress, exercise &hypertension and Other additional plan/interventions Tobacco Cessation Referral Smoking Cessation Referral:: No Individual Education/Counseling:: No Education Schedule Given:: Yes Psychosocial - Initial Assess VIsit Date of Eval: 07/04/24 (initial eval) History of previous Mental disease:: Yes History of Emotional Disorders: Depression (pt is currently talking to Dr. Zaragoza) Target Goals Target Goals Referral to Behavioral Health PS - Interventions: Yes: Attend Stress Management Classes Outcomes/Goals: See list Psychosocial Outcomes/Goals:: ID's personal stressors & 2 strategies to manage stress by discharge and Other Additional outcome/goals: Intervention/Plan: See List Interventions/Plan:: Assess stressors,coping strategies & signs of derpression on admission, Instruct/assist pt to develop coping & personal stress Mgt strategies, Refer to Behavioral Health if appropriate, Refer to Physician if appropriate, Instruct patient to recognize signs & symptoms of depression, Instruct patient to recog and Other additional plan/intervention Comments:: pt is currently talking to Dr. Zaragoza Patient Health Questionnaire PHQ-9 Screening Initial Assessment: 1. Little interest or pleasure in doing things: Nearly every day 2. Feeling down, depressed, or hopeless: More than half the days 3. Trouble falling or staying asleep, or sleeping too much: Not at all 4. Feeling tired or having little energy: Nearly every day 5. Poor appetite or overeating: More than half the days 6. Feeling bad about yourself -- or that you are a failure or have let yourself or your family down: More than half the days 7. Trouble concentrating on things, such as reading the newspaper or watching television: Not at all 8. Moving or speaking so slowly that other people could have noticed. Or the opposite - being so fidgety or restless that you have been moving around a lot more than usual: Not at all 9. Thoughts that you would be better off , or of hurting yourself in some way: More than half the days (pt states he is currently speaking to Dr. Zaragoza about his depression ) How difficult have these problems made it for you to do your work, take care of things at home, or get along with other people?: Very difficult Total Score: 14 SARABJIT-Q SV Test Statements CAD is a disease of the arteries in the heart: False Examples of risk factors for heart disease: True Angina is chest pain or discomfort: I Don't Know The benefits of resistance training include: True Eating more meat and dairy products: False Anti-platelet medications such as aspirin are important: I Don't Know The only effective way to manage stress: False An exercise warm-up slowly increases heart rate: I Don't Know Prepared, processed foods usually have high sodium: True Depression is common after a heart attack: True The statin medications lower cholesterol: True To control blood pressure, lower the amount of sodium: True If someone gets chest discomfort during walking: False Transfats are partially hydrogenated vegetable oils: I Don't Know Sleep apnea that is not treated increases the risk: False To control cholesterol, one should become a vegetarian: False Someone knows if he/she is exercising at the right level: True Diabetes cannot be prevented with exercise & health eating: False Stress is a large risk for heart attack: True A diet that can help lower blood pressure is rich in: True Total Score Total Correct Responses: 16 Self-Efficacy 6-Item Scale Initial Assessment: We would like to know how confident you are in doing certain activities. Please select your confidence level for: Fatigue Select Number: 4 Physical Discomfort or Pain Select Number: 8 Emotional Distress Select Number: 4 Other Symptoms or Health Problems Select Number: 3 Different Tasks and Activities Select Number: 7 Medication Select Number: 8 Total Score:: 5 Nutrition Survey Nutrition Survey Instructions Scoring Instructions Nutrition Survey Initial: Have you lost >10 lbs over the past 2 months without trying?: Yes Are you interested in meeting with a dietitian for help understanding your diet?: No Do you eat less than 3 meals a day?: No Do you eat fatty meats (cummings, sausage, ribs, etc), fried foods, desserts, large amounts of salad dressings, margarine, butter, or cheese most days?: No Do you have food allergies? [Enter types in comment field]: No Do you eat in restaurants more than 3 times a week?: No Do you season food with salt, seasoning salt, or garlic salt?: No Do you used canned, boxed, frozen meals, or soups, seasoning packets?: Yes Exercise - 30-day Assessment Physician Prescribed Exercise Modalities: Adriana BELL-Eben, SciFit Stepper, SciFit Pro-II Ergometer and SciFit Lateral Inspector Optical Instrument Exercise - 60-day Assessment Physician Prescribed Exercise Modalities: Adriana BELL-7, SciFit Stepper, SciFit Pro-II Ergometer and SciFit Lateral [place] Exercise - 90-day Assessment Physician Prescribed Exercise Modalities: Schwinn Airdyne AD-7, SciFit Stepper, SciFit Pro-II Ergometer and SciFit Lateral Inspector Optical Instrument Exercise - Final/Discharge Physician Prescribed Exercise Modalities: Adriana Perez AD-7, SciFit Stepper, SciFit Pro-II Ergometer and SciFit Lateral Inspector Optical Instrument Frequency: 3x/week for 12 weeks [36 sessions] Intensity: 60-80% of age predicted maximum heart rate reserve Current METSs:: 3 Target Heart Rate:: 82-101 Nutrition - 30-Day Assessment Weight Mgt (Other Care) Height: 5 ft 11 in Weight:: 169 lb BMI: 23.6 Nutrition - 60-Day Assessment Weight Mgt (Other Care) Height: 5 ft 11 in Weight:: 169 lb BMI: 23.6 Core - Final Assessment Hypertension Resting Blood Pressure:: 106/74 [employer] Hypertension Guidelines Core - 60-Day Assessment Hypertension Resting Blood Pressure:: 106/74 [employer] Hypertension Guidelines Psychosocial - 30-Day Assess Target Goals Target Goals Referral to Behavioral Health PS - Interventions: Yes: Attend Stress Management Classes Psychosocial - 60-Day Assess Target Goals Target Goals Referral to Behavioral Health PS - Interventions: Yes: Attend Stress Management Classes Psychosocial - 90-Day Assess Target Goals Target Goals Referral to Behavioral Health PS - Interventions: Yes: Attend Stress Management Classes Psychosocial - Final Assessmen Target Goals Target Goals Referral to Behavioral Health PS - Interventions: Yes: Attend Stress Management Classes Nutrition - 90-Day Assessment Weight Mgt (Other Care) Height: 5 ft 11 in Weight:: 169 lb BMI: 23.6 Nutrition - Final Assessment Program Goals Patient has diagnosis of Hyperlipidemia (ICD E78)?: Yes Weight Mgt (Other Care) Height: 5 ft 11 in Weight:: 169 lb BMI: 23.6
[2024-07-04 13:19] VITALS: BP 106/74
[2024-07-04 14:15] VITALS: BMI 23.6
[2024-07-04 14:28] VITALS: BMI 23.6
== END | disposition home or self-care (01) ==
LOC: CR 12:58
PROVIDERS: PCP Internal Medicine; Referring Provider Internal Medicine Cardiovascular Disease; Visit Provider Internal Medicine Cardiovascular Disease
DX: I11.0 Hypertensive heart disease with heart failure (principal); I50.22 Chronic systolic (congestive) heart failure

== ENCOUNTER 2024-07-19 10:15 | Outpatient (RCR) | payer MEDICARE, SELFPAY ==
[2024-07-04 14:15] VITALS: BMI 23.6
== END 2024-07-20 23:59 ==
LOC: CR 10:15
PROVIDERS: PCP Internal Medicine; Referring Provider Internal Medicine Cardiovascular Disease; Visit Provider Internal Medicine Cardiovascular Disease
DX: R09.89 Other specified symptoms and signs involving the circulatory and respiratory systems; I50.23 Acute on chronic systolic (congestive) heart failure
CPT/HCPCS: 93798

== ENCOUNTER 2024-07-24 08:52 | Outpatient (RCR) | payer MEDICARE, SELFPAY ==
[2024-07-04 14:15] VITALS: BMI 23.6
--- NOTE | 2024-08-02 08:06 | CR.ITP_ITS ---
<Statement entered by Hitesh Esqueda MD - 08/02/24 08:48> The patient was recently hospitalized at [facility] and has opted to go into palliative/hospice care. Documented by User: KANCHAN Montoya, RVT 08/02/24 08:25 Exercise - Initial Assessment Visit Session #:: 5 Physician Prescribed Exercise Modalities: SciFit Stepper Nutrition - Initial Assessment Weight Mgt (Other Care) Height: 5 ft 1 in Weight:: 170 lb BMI: 32.1 Psychosocial - Initial Assess Target Goals Target Goals Referral to Behavioral Health PS - Interventions: Yes: Attend Stress Management Classes Patient Health Questionnaire PHQ-9 Screening 30-Day Re-eval Assessment: 1. Little interest or pleasure in doing things: Nearly every day 2. Feeling down, depressed, or hopeless: More than half the days 3. Trouble falling or staying asleep, or sleeping too much: Not at all 4. Feeling tired or having little energy: Nearly every day 5. Poor appetite or overeating: More than half the days 6. Feeling bad about yourself -- or that you are a failure or have let yourself or your family down: More than half the days 7. Trouble concentrating on things, such as reading the newspaper or watching television: Not at all 8. Moving or speaking so slowly that other people could have noticed. Or the opposite - being so fidgety or restless that you have been moving around a lot more than usual: Not at all 9. Thoughts that you would be better off , or of hurting yourself in some way: More than half the days (Pt sates he is currently in counseling with Dr. Zaragoza) How difficult have these problems made it for you to do your work, take care of things at home, or get along with other people?: Very difficult Total Score: 14 Self-Efficacy 6-Item Scale 30-Day Re-eval Assessment: We would like to know how confident you are in doing certain activities. Please select your confidence level for: Fatigue Select Number: 4 Physical Discomfort or Pain Select Number: 8 Emotional Distress Select Number: 4 Other Symptoms or Health Problems Select Number: 3 Different Tasks and Activities Select Number: 7 Medication Select Number: 8 Total Score:: 5 Nutrition Survey Nutrition Survey Instructions Scoring Instructions Exercise - 30-day Assessment Visit Date of Eval: 08/02/24 Session #:: 5 Physician Prescribed Exercise Modalities: SciFit Stepper Frequency: 3x/week for 12 weeks [36 sessions] Intensity: 60-80% of age predicted maximum heart rate reserve Duration: 30 - 45 minutes Current METSs:: 3 Target Heart Rate:: 82-101 Current RPE:: 12-13 Maximum Excercise HR:: 77 Resting Blood Pressure: 110/60 Maximum Exercise Blood Pressure: 118/64 EKG Type: Ventricular paced with BBB, occas navajo conduction and occas PAC/PVC Outcomes & Goals Goals:: Verbalizes understanding of THR, RPE & goal METS by session 6, Documents in home exercise log/reports 30 min aerobic 5 day/wk by DC, Demonstrates accurate pulse taking by DC and Other additional outcome/goals: see below Intervention & Plan Exercise Program Goals: Instruct on personal THR & RPE, Instruct on MET level & personal MET goal, Show patient to take own pulse /validate performance until accurate, Instruct on home exercise and Other additional plan/int 30-day Reassessments 30 day Reassessments:: Progressing Reassessment Notes & Comments:: RPE explained Physical Activity Home Exercise Physical Activity - Home Exercise: Safe Exercise, Warm-up, Self-monitoring, Cool-Down, Home Exercise > 30 min Daily and Sitting Time <3 hours/daily Outcomes & Goals Outcomes/Goals: Demonstrates correct Warm-up/exercise Cool-Down (S3) if = 2.5 METs, Verbalizes symptoms of exercise intolerance by Session 3 (S3), Demonstrate safe equipment use (S3) & follows exercise prescrition (6) and Other: See below Intervention & Plan Plan/Intervention: Instruct warm-up & cool-down if exercising at > 2 METs, Instruct on symptoms of exercise intolerance & actions to take, Instruct & monitor on saf, Assess intial functional capacity & safety risk and Other See below 30-day Reassessments 30 day Reassessments:: Progressing Reassessment Notes & Comments:: warm up explained and encouraged Exercise - 60-day Assessment Physician Prescribed Exercise Modalities: SciFit Stepper Exercise - 90-day Assessment Physician Prescribed Exercise Modalities: SciFit Stepper Exercise - Final/Discharge Physician Prescribed Exercise Modalities: SciFit Stepper Nutrition - 30-Day Assessment Program Goals Nutrition Program Goals Patient has diagnosis of Hyperlipidemia (ICD E78)?: Yes Visit Date of Eval: 08/02/24 Session #:: 5 Cholesterol/Lipids (Other Core Measures) Determine presence & major risk factors that modify LDL goal: Hypertension or hypertensive medication, Low HDL cholesterol <40 mg/dL*, Family history of premature CHD in Male < 55 years: female <65 yearsFa and Age men > 45 years; women >/= 55 years Outcomes/Goals: Pt IDs own risk factors & lifestyle modifications by Session 10, Verbalizes symptoms of angina & response by session 3., Pt independently manages and Other Additional Outcomes/Goals: Intervention/Plan: Advocate for lipid panel cholesterol medication if applicable, Instruct on personal lipid levels & lipid goals/NCEP guidelines, Instruct on cholesterol and Other additional plan/int 30-day Reassessments:: Progressing Reassessment Notes & Comments:: risk factors reviewed and explained to pt Diabetes (Other Core Measures) Diabetes Type: Not Applicable Weight Mgt (Other Care) Height: 5 ft 1 in Weight:: 170 lb BMI: 32.1 Diagnosis Overweight/Obesity BMI> 30% ICD-10 E66: Yes Diagnosis High BMI/Morbid Obesity BMI> 35% ICD-10 Z68: No Outcomes/Goals: Pt sets, maintains & shows weight loss goal & trend during rehab and Other additional outcomes/goals Intervention/Plan: Instruct on ideal BMI & set weight loss goal w/patient, Assist pt to ID & incorporate diet changes for weight loss by S9, Refer to Structured Weight Loss program as appropriate, Encourage goal of using 250- 300dcal per session for weight loss and Other additional plan/interventions 30 day Reassessments:: Progressing Reassessment Notes & Comments:: pt is to attend nutrition class Healthy Eating Habits Will attend diet classes:: Yes Outcomes/Goals:: Consume diet rich in vegs,fruits,whole grain/high fiber,fish,lean meat, Limit sat/trans fats,cholesterol & added salts & sugars and Other additional outcome/goals: Intervention/Plan:: Assess current eating habits and Other Additional plan/interventions 30-day Reassessments:: Progressing Reassessment Notes & Comments:: pt to attend nutrition class Education Gave educational materials for:: Signs & symptoms of hypoglycemia, Signs & symptoms of hyperglycemia, Relate diabetes to coronary artery disease and Healthy eating Nutrition - 60-Day Assessment Weight Mgt (Other Care) Height: 5 ft 1 in Weight:: 170 lb BMI: 32.1 Core - 30-Day Assessment Visit Date of Eval: 08/02/24 Session #:: 5 Medication Compliance Preventative Medication(s):: Statin/lipid H/O mental health issues: depression, anxiety, or addiction?: Yes Doesn?t believe in the benefits of treatment?: No Believes medications are unnecessary or harmful?: No Has a concern about medication side effects?: No Expresses concern over the cost of medications?: No Outcomes/Goals: Verbalizes medications,desired effect & common side effects @ DC, Pt self-reports following medication regimen, Keeps card in wallet w/medications listed by DC and Other additional outcome/goals: Interventions/plans: Instruct on medication effects & side effects, Review medication list w/patient every two weeks, Instruct importance of taking meds as ordered & assist problem solving and Other additional 30-day Reassessments:: Progressing Reassessment Notes & Comments:: Pt is off of his beta pilar 07/04/24 Tobacco Use Tobacco Use: Non-smoker Hypertension Hypertension Diagnosis:: Hypertension ICD-10 I10 Resting Blood Pressure:: 106/74 [place] [employer] Hypertension Guidelines Outcomes/Goals: Able to verbalize/achieve optimal blood pressure <130/80, Incorporates diet changes & exercise for blood pressure control by DC and Other additional outcomes/goals Interventions/plan: Instruct on optimal blood pressure, hypertension & medications, Instruct on effects of sodium, alcohol, stress, exercise &hypertension and Other additional plan/interventions 30 day Reassessments:: Met Reassessment Notes & Comments:: pt's BP's are within AHA normal limits Tobacco Cessation Referral Smoking Cessation Referral:: No Individual Education/Counseling:: No Education Schedule Given:: Yes Psychosocial - 30-Day Assess VIsit Date of Eval: 08/02/24 Session #:: 5 History of previous Mental disease:: Yes (pt is currently in counseling with Dr. Zaragoza) History of Emotional Disorders: Depression Target Goals Target Goals Psychosocial Test Tool Used:: [employer] QOL Cardiac and PHQ-9 Questionnaire phq-9 Severity Referral to Behavioral Health PS - Interventions: Yes: Attend Stress Management Classes Outcomes/Goals: See list Psychosocial Outcomes/Goals:: ID's personal stressors & 2 strategies to manage stress by discharge and Other Additional outcome/goals: Intervention/Plan: See List Interventions/Plan:: Assess stressors,coping strategies & signs of derpression on admission, Instruct/assist pt to develop coping & personal stress Mgt strategies, Refer to Behavioral Health if appropriate, Refer to Physician if appropriate, Instruct patient to recognize signs & symptoms of depression, Instruct patient to recog and Other additional plan/intervention 30-day Reassessments: 30 day Reassessments:: Progressing Reassessment Notes & Comments:: pt is currently in counseling with Dr. Zaragoza Psychosocial - 60-Day Assess Target Goals Target Goals Referral to Behavioral Health PS - Interventions: Yes: Attend Stress Management Classes Outcomes/Goals: See list Psychosocial Outcomes/Goals:: ID's personal stressors & 2 strategies to manage stress by discharge and Other Additional outcome/goals: Psychosocial - 90-Day Assess Target Goals Target Goals Referral to Behavioral Health PS - Interventions: Yes: Attend Stress Management Classes Psychosocial - Final Assessmen Target Goals Target Goals Referral to Behavioral Health PS - Interventions: Yes: Attend Stress Management Classes Nutrition - 90-Day Assessment Weight Mgt (Other Care) Height: 5 ft 1 in Weight:: 170 lb BMI: 32.1 Nutrition - Final Assessment Weight Mgt (Other Care) Height: 5 ft 1 in Weight:: 170 lb BMI: 32.1 Documented by User: Dr. Hitesh Esqueda MD 08/02/24 08:49 Nutrition - Initial Assessment Weight Mgt (Other Care) BMI: 32.1 Psychosocial - Initial Assess Target Goals Target Goals Patient Health Questionnaire PHQ-9 Screening 30-Day Re-eval Assessment: Total Score: 14 Self-Efficacy 6-Item Scale 30-Day Re-eval Assessment: We would like to know how confident you are in doing certain activities. Please select your confidence level for: Fatigue Physical Discomfort or Pain Emotional Distress Other Symptoms or Health Problems Different Tasks and Activities Medication Total Score:: 5 Nutrition Survey Nutrition Survey Instructions Scoring Instructions Physician Response Physician Response Discharge Assessment: Physician Responses: Please add/change the following: (The patient has opted for palliative/hospice care after his most recent hospitalization) Nutrition - 30-Day Assessment Weight Mgt (Other Care) BMI: 32.1 Nutrition - 60-Day Assessment Weight Mgt (Other Care) BMI: 32.1 Psychosocial - 30-Day Assess Target Goals Target Goals Psychosocial - 60-Day Assess Target Goals Target Goals Psychosocial - 90-Day Assess Target Goals Target Goals Psychosocial - Final Assessmen Target Goals Target Goals Nutrition - 90-Day Assessment Weight Mgt (Other Care) BMI: 32.1 Nutrition - Final Assessment Weight Mgt (Other Care) BMI: 32.1
[2024-08-02 08:24] VITALS: BP 106/74; BP 110/60
[2024-08-02 08:49] VITALS: BMI 32.1
== END 2024-08-19 23:59 ==
LOC: CR 08:52
PROVIDERS: PCP Internal Medicine; Referring Provider Internal Medicine Cardiovascular Disease; Visit Provider Internal Medicine Cardiovascular Disease
DX: I51.9 Heart disease, unspecified (principal)
CPT/HCPCS: 93798

== ENCOUNTER 2024-07-24 15:41 | Inpatient (IN) | payer MEDICARE, SELFPAY ==
[2024-07-04 14:15] VITALS: BMI 23.6
[2024-07-24] VITALS (7 sets, daily range): BP systolic 82–117; BP diastolic 60–75; PULSE 51–70; RESP 15–21; TEMP 35.6–36.7; O2SAT 92–99; BMI 22.8; BMI 23.5
--- NOTE | 2024-07-24 15:54 | EDS_ITS ---
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 anticoagulation History of cardiac pacemaker Paroxysmal atrial fibrillation Pacemaker Sick sinus syndrome CKD (chronic kidney disease), stage III HTN (hypertension) Hyperkalemia, diminished renal excretion Atrial flutter HFrEF (heart failure with reduced ejection fraction) Obstructive sleep apnea Left bundle branch block (LBBB) Fatigue Dyspnea LVH (left ventricular hypertrophy) Left ventricular diastolic dysfunction Non-ischemic cardiomyopathy History of hay fever Prostate cancer Hyperlipidemia Depression Home Medications ?Medication ?Instructions ?Recorded ?Last Taken ?Type vitamin B complex 1 cap PO BID vitamin 10/11/21 04/13/24 History rosuvastatin 20 mg tablet 20 mg PO DAILY cholesterol 12/16/21 04/13/24 History duloxetine 30 mg capsule,delayed 30 mg PO BID DEPRESSION 12/15/23 04/13/24 History release sucralfate 1 gram tablet (Carafate) 1 g PO BID stomach 30 days #60 tabs 12/27/23 04/13/24 Rx spironolactone 25 mg tablet 12.5 mg (1/2 x 25 mg) PO DAILY #45 05/24/24 Unknown Rx tabs furosemide 40 mg tablet 40 mg PO DAILY PRN weight gain 05/28/24 Unknown History docusate sodium 100 mg capsule 100 mg PO BID PRN 06/26/24 Unknown History metoprolol tartrate 25 mg tablet 12.5 mg (1/2 x 25 mg) PO BID #30 06/26/24 Unknown Rx tabs Allergy/AdvReac Type Severity Reaction Status Date / Time Iodinated Contrast Media Allergy Severe Shortness Verified 07/24/24 15:44 of breath iodine Allergy Shortness Verified 07/24/24 15:44 of breath Surgical History History of right hip hemiarthroplasty History of left heart catheterization (12/17/21) Hx of appendectomy History of total bilateral knee replacement History of prostate surgery Social History household members: spouse Smoking Status: Never smoker alcohol intake: current alcohol intake frequency: 0-2 drinks per day Alcohol type: beer, wine and hard liquor details: 1 drink per night substance use type: does not use caffeine: Yes Type: coffee Number of servings: 2 what type of physical activity do you participate in: walking frequency: daily seatbelt use: always EXAM Physical Exam Const Vital Signs: 07/24/24 15:42 07/24/24 17:42 Temperature 98.1 F Temperature Source Temporal Pulse Rate 70 70 Respiratory Rate 15 21 H Blood Pressure 106/65 117/73 Blood Pressure Mean 78 87 Pulse Ox 95 98 Oxygen Delivery Method [place] [facility] [place] Medical decision making narrative: HISTORY OF PRESENT ILLNESS: 84-year-old male presents with concern for dizziness for the past 1.5 weeks. He notes dizziness is worse with exertion. Notes he has not taken his water pill recently. Notes lower extremity edema that is chronic. Notes shortness of breath that is chronic. Denies chest pain or palpitations. Denies any bleeding diathesis. Notes decreased urination. Notes his urine has been darker than usual despite drinking plenty of fluids. Denies headache, focal weakness, slurred speech REVIEW OF SYSTEMS: Pertinent positives: Dizziness, chronic lower extremity edema, decreased urination Pertinent negatives: Chest pain, shortness of breath PHYSICAL EXAM: Nursing triage notes reviewed, Vital signs reviewed Constitutional: please see mdm HENT: MMM Eyes: Pupils equal round and reactive to light, Extraocular muscles intact Neck: No stridor, no JVD, full neck ROM Lungs: Clear to auscultation, No wheezing or rales. No increased work of breathing, no conversational dyspnea, no accessory muscle use, no nasal flaring. No respiratory distress noted Heart: Regular rate and rhythm, No murmurs, No rubs and No gallops, 2+ distal pulses (radial, femoral, posterior tibial) in all extremities Abdomen: Soft, there is no tenderness, rigidity, rebound or guarding, no obvious peritoneal signs, no palpable pulsatile abdominal masses, no auscultated abdominal bruit : No CVAT Extremities: 2+ pitting edema noted bilateral lower extremities, no calf tenderness or stigmata of VTE Neuro: Alert and oriented x3, neuro exam at baseline, cranial nerves II through XII are intact. No pain with extraocular muscle movement. There is negative test of skew. 5 of 5 strength in upper and lower extremities in flexion extension. Intact sensation to light touch in upper and lower extremity derm atomes. No truncal or extremity ataxia. No dysdiadochokinesia. 2+ reflexes in upper and lower extremities. No meningeal signs. Negative Babinski. NIH of 0. Skin: No rash or lesions noted MEDICAL DECISION MAKING: Chief Complaint: Dizziness External records reviewed: Reviewed prior imaging studies: Reviewed echocardiogram from 2023 showed ejection fraction of 20% Factors affecting care: CHF, sick sinus syndrome status post pacemaker, atrial flutter, hyperlipidemia, prostate cancer, MIKY, CKD stage III Social determinants of health: [facility] resident History obtained from others: The patient's Consults: internal medicine (Dr. Carver) MDM Narrative: The patient was initially hemodynamically stable, afebrile and nontoxic- appearing. Exam with lower extremity edema and signs of volume overload. I considered the following differential diagnosis: Posterior circulation CVA, dehydration, arrhythmia, electrolyte disturbance, kidney failure, ACS, CHF, anemia I obtained a broad lab and imaging workup to further elucidate etiology of patient's complaints. ALL IMAGES (IF OBTAINED) HAVE BEEN PERSONALLY REVIEWED AND INTERPRETED BY MYSELF. EKG with ventricular paced rhythm, left axis deviation, prolonged QT interval, no obvious STEMI Initial troponin elevated consistent with myocardial ischemia BNP elevated consistent with volume overload BMP consistent with SYLVIA on CKD, no significant [place] normalities CBC without leukocytosis, severe anemia, no thrombocytopenia. Chest x-ray was read reviewed myself shows evidence of right lower lobe consolidation versus pleural effusion. Ultra-Screen my interpretation Obtain an ABG over the negative assessment sample as the patient had a difficult anatomy per RT so I abandon this test The synthesis of the patient's history, physical exam, labs images suggest likely CHF with signs of volume overload on exam, elevated BNP, fluid on his lungs. I did cover for pneumonia with ceftriaxone azithromycin. I did not start diuresis in the emergency department as the patient had significant CKD did not want to exacerbate this at this time. The patient and/or family, caregivers express understanding. The patient and/or family, caregivers agrees with the plan. Shared decision making: I will have a discussion with the patient and or visitors regarding risk/benefits of further testing or admission. They will be made aware of of the risk/benefits inherent in this decision they will be given the opportunity to voice understanding. Total critical care time today provided was at least 0 minutes. This excludes separately billable procedures. Critical care time (if documented) is secondary to the patient having high probability of clinically significant/life threatening deterioration in the patient's condition which required my urgent intervention. Impression: 1. Dizziness 2. SYLVIA 3. NSTEMI Dispo: admit to PCU This note was generated with [employer] dictation software. It may contain incorrect words, spelling, and punctuation that were not noted in review of the chart prior to signing. Lab Data Labs: Laboratory Results - last 24 hr 07/24/24 07/24/24 16:08 18:23 WBC 10.0 RBC 4.74 Hgb 15.0 Hct 46.0 MCV 97.0 H MCH 31.6 MCHC 32.6 RDW Std Deviation 53.5 H RDW Coeff of Lanye 14.8 H Plt Count 204 MPV 12.3 H Sodium 136 Potassium 3.8 Chloride 104 Carbon Dioxide 22.0 Anion Gap 10 BUN 46 H Creatinine 2.28 H Estim Creat Clear Calc 25.38 Est GFR (MDRD) Af Amer 35 L Est GFR (MDRD) Non-Af 29 L BUN/Creatinine Ratio 20.2 H Glucose 101 Calcium 9.5 Troponin I High Sens 142 H* 113 H B-Natriuretic Peptide 729.4 H Radiography Diagnostic Testing: Clinical Impression(s) from Imaging Studies Brain CT 07/24/24 16:07 IMPRESSION: Volume loss with chronic white matter changes. No acute intracranial findings. Electronically Signed: Glenn Redd MD at 17:19 EDT , Chest X-Ray 07/24/24 16:28 IMPRESSION: Right lower lung field consolidation with pleural effusion. Possible small left pleural effusion. Electronically Signed: Glenn Redd MD at 16:49 EDT , Discharge Plan Disposition Disposition: Acute Care Hospital [facility] Discharge Date/Time: 07/24/24 19:19
--- NOTE | 2024-07-24 16:07 | EKG12_ITS ---
Test Reason : Blood Pressure : / mmHG Vent. Rate : 070 BPM Atrial Rate : 059 BPM P-R Int : 000 ms QRS Dur : 208 ms QT Int : 534 ms P-R-T Axes : 000 -88 080 degrees QTc Int : 576 ms Ventricular-paced rhythm Abnormal ECG Confirmed by ALINA PINTO, WILMER ([id number]), graphic editor TAN ARAMBULA ([id number]) on 07/25/2024 1:53:17 PM Referred By: Quinton Dukes Confirmed By:WILMER FULLER MD
--- NOTE | 2024-07-24 16:07 | CT_ITS ---
INDICATION: dizziness EXAMINATION: CT BRAIN - CT Head or Brain W/O Contrast Injection TECHNIQUE: Multiple axial images were obtained of the head without intravenous contrast. A radiation dose optimization technique was used for this scan. IV Contrast dosage and agent: None. COMPARISON: 04/14/2024 FINDINGS: BRAIN PARENCHYMA: No intra- or extra-axial hemorrhage. No acute territorial infarction. 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 No intracranial mass or mass effect. There is preservation of the krishnamurthy/white matter interface. Posterior fossa structures are unremarkable. Stable volume loss with low attenuation of the periventricular white matter typical of chronic small vessel disease. CSF SPACES: Stable. No hydrocephalus. Basal cisterns are patent. CALVARIUM, SKULL BASE, PARANASAL SINUSES AND MASTOID AIR CELLS: Clear. No discrete lytic or blastic abnormalities. CT/Brain/Head without Contrast IMPRESSION: Volume loss with chronic white matter changes. No acute intracranial findings. Electronically Signed: Glenn Redd MD at 17:19 EDT ,
[2024-07-24 16:21] LABS: Mean Corp Hgb Conc 32.6 g/dL (32-36); Mean Corpuscular Hgb 31.6 pg (27.0-32.0); Mean Platelet Vol. 12.3 fl (6.2-12.0); POSITIVE MORPHOLOGY YES; Platelet Count 204 K/mm3 (150-450); RBC Distribution Width CV 14.8 % (11.6-14.6); RBC Distribution Width SD 53.5 fl (35.1-43.9); Red Blood Count 4.74 M/mm3 (4.6-6.2)
[2024-07-24 16:22] LABS: Scan Indicated on CBC? Y/N YES- FLAGS NOTED
--- NOTE | 2024-07-24 16:28 | RAD_ITS ---
INDICATION: SOB EXAMINATION/TECHNIQUE: X-RAY - portable upright AP chest x-ray COMPARISON: 04/14/2024 FINDINGS: LINES/DEVICES: Stable transvenous pacemaker. LUNGS: Opacity at the right lower lung field with marked blunting of the right costophrenic angle. Subsegmental atelectasis left lower lung field with minimal blunting of the costophrenic angle. No vascular congestion. MEDIASTINUM AND CARDIOVASCULAR STRUCTURES: Cardiac silhouette stable within normal limits. BONES AND SOFT TISSUES: No acute changes. RAD/Chest 1 View (Portable) IMPRESSION: Right lower lung field consolidation with pleural effusion. Possible small left pleural effusion. Electronically Signed: Glenn Redd MD at 16:49 EDT ,
[2024-07-24 16:43] LABS: Anion Gap 10 (5-15); BUN 46 mg/dL (7-18); BUN/Creat Ratio 20.2 RATIO (10-20); Calcium,Total 9.5 mg/dL (8.5-10.1); Chloride 104 mmol/L (98-107); Creatinine, Serum 2.28 mg/dL (0.70-1.30); EST Glomerular Filtration Rate 29 mL/min (>60); Est Glom Filt Rate - Afr Amer 35 mL/min (>60); Estimated Creatinine Clearance 25.38 ml/min; Glucose 101 mg/dL (74-106); Potassium 3.8 mmol/L (3.5-5.1); Sodium Level 136 mmol/L (136-145); Troponin-I HS (w/2H Reflex) 142 pg/mL (3.0-78.0)
[2024-07-24 16:52] LABS: BNP,B-Type NATRIURETIC PEPTIDE 729.4 pg/mL (0-100)
[2024-07-24 18:15] LABS: Reflex Troponin-HS? (from REC) Y
[2024-07-24] MEDS: Azithromycin 500 MG in Dextrose 5%-Water (250mL Bag) 250 ML 250 MG IV (18:17)
[2024-07-24] MEDS: Aspirin 81 MG TAB.CHEW PO (18:19)
--- NOTE | 2024-07-24 18:41 | HP.PCM.HOS_ITS ---
[facility] - General General Date of Admission: 07/24/24 Date of Service: 07/24/24 Chief Complaint: generalised weakness, dizziness HPI Compa INFANTE, is a 84 M with an extensive past medical history as outlined which includes history of heart failure with reduced ejection fraction with known EF of 20% who was admitted via the ED on 07/24/2024 with a complaint of generalized weakness and some dizziness. He said he felt very weak and lethargic and could not really carry out his activities of daily living. He also noted that he had some occasional dizziness. He denied any coughing or chest pain and denied any palpitations or nausea or vomiting. He noted that his urine had been darker than usual and he had been urinating less frequently than normal. He said he usually always felt thirsty. Review of systems otherwise negative. He is on a water pill but says he only takes it when he has gained about 2 pounds or more as this was the instruction given to him by his rewrite editor. He said he had not taken his water pill for several days now. Review of systems otherwise negative. Vitals in the ED were blood pressure of 117/73, pulse rate of 70 and respiratory rate of 21. CBC showed hemoglobin of 15 with WBC of 10 and platelets of 204. Chemistry was remarkable for creatinine of 2.28 with a baseline creatinine of around 1.5. BNP was 7-9.4 although BNP was chronically elevated. Initial troponin was 142 but again patient has had chronically elevated troponins and did trend down to 113 on repeat. Chest x-ray showed right lower lung field consolidation with pleural effusion and possible small left pleural effusion. He has been admitted to be managed for SYLVIA on CKD and probable community- acquired pneumonia. [facility] Medical History custodial (current) use of anticoagulants Chronic anticoagulation History of cardiac pacemaker Paroxysmal atrial fibrillation Pacemaker Sick sinus syndrome CKD (chronic kidney disease), stage III HTN (hypertension) Hyperkalemia, diminished renal excretion Atrial flutter HFrEF (heart failure with reduced ejection fraction) Obstructive sleep apnea Left bundle branch block (LBBB) Fatigue Dyspnea LVH (left ventricular hypertrophy) Left ventricular diastolic dysfunction Non-ischemic cardiomyopathy History of hay fever Prostate cancer Hyperlipidemia Depression Home Medications ?Medication ?Instructions ?Recorded ?Last Taken ?Type vitamin B complex 1 cap PO BID vitamin 10/11/21 04/13/24 History rosuvastatin 20 mg tablet 20 mg PO DAILY cholesterol 12/16/21 04/13/24 History duloxetine 30 mg capsule,delayed 30 mg PO BID DEPRESSION 12/15/23 04/13/24 History release sucralfate 1 gram tablet (Carafate) 1 g PO BID stomach 30 days #60 tabs 12/27/23 04/13/24 Rx acetaminophen 500 mg tablet 1,000 mg (2 x 500 mg) PO Q8 #0 tabs 04/30/24 Unknown Rx spironolactone 25 mg tablet 12.5 mg (1/2 x 25 mg) PO DAILY #45 05/24/24 Unknown Rx tabs furosemide 40 mg tablet 40 mg PO DAILY PRN 05/28/24 Unknown History docusate sodium 100 mg capsule 100 mg PO BID PRN 06/26/24 Unknown History metoprolol tartrate 25 mg tablet 12.5 mg (1/2 x 25 mg) PO BID #30 06/26/24 Unknown Rx tabs Allergy/AdvReac Type Severity Reaction Status Date / Time Iodinated Contrast Media Allergy Severe Shortness Verified 07/24/24 15:44 of breath iodine Allergy Shortness Verified 07/24/24 15:44 of breath Surgical History History of right hip hemiarthroplasty History of left heart catheterization (12/17/21) Hx of appendectomy History of total bilateral knee replacement History of prostate surgery Social History household members: spouse Smoking Status: Never smoker alcohol intake: current alcohol intake frequency: 0-2 drinks per day Alcohol type: beer, wine and hard liquor details: 1 drink per night substance use type: does not use caffeine: Yes Type: coffee Number of servings: 2 what type of physical activity do you participate in: walking frequency: daily seatbelt use: always ROS Constitutional Constitutional: Reports fatigue, malaise and weakness; Denies anorexia, change in weight, chills or fever(s) Eyes Eyes: Denies change in vision or discharge from eye(s) ENT HEENT: Denies dysphagia, headache(s), nasal discharge or sore throat Cardiovascular Cardiovascular: Denies chest pain, dyspnea on exertion, edema, lightheadedness, orthopnea, palpitations, paroxysmal nocturnal dyspnea, rapid heart rate or syncope Respiratory/Chest Respiratory/Chest: Denies cough, dyspnea, hemoptysis, productive cough, shortness of breath at rest or shortness of breath with exertion Gastrointestinal Gastrointestinal: Denies abdominal pain, constipation, diarrhea, nausea or vomiting Genitourinary Genitourinary: Denies burning urination Neurologic Neurologic: Denies confusion, dizziness, focal weakness, headache(s), numbness, seizure-like activity, seizures or syncope Psychiatric Psychiatric: Denies anxiety or depression Vital Signs Vital Signs Vital Signs: 07/24/24 15:42 07/24/24 17:42 Temperature 98.1 F Temperature Source Temporal Pulse Rate 70 70 Respiratory Rate 15 21 H Blood Pressure 106/65 117/73 Blood Pressure Mean 78 87 Pulse Ox 95 98 Oxygen Delivery Method Room Air Weight Weight: 164 lb Body Mass Index (BMI) 22.8 Physical Exam Const alert, oriented x3 and no apparent distress General Appearance: cooperative HEENT normocephalic, head/scalp atraumatic, hearing grossly normal bilaterally, moist oral mucous membranes and oropharynx normal Mouth: oral and palatal mucosa normal Eyes PERRL, EOMs intact bilaterally and conjunctivae normal Neck no lymphadenopathy, supple and no JVD Resp Resp Narrative: Mildly diminished breath sounds bibasilarly. No wheezes or crackles. On room air. Cardio regular rate, regular rhythm, S1 normal heart sound, S2 normal heart sound and no murmurs GI normal to inspection, nondistended, normoactive bowel sounds, soft to palpation, non-tender and non-distended Extremity normal to inspection and full ROM Extremity Narrative: mild 1+ bipedal pitting edema Neuro oriented x3, CN's II-XII intact bilaterally, moves all extremities and no focal motor deficits Sensorium / Orientation: awake Motor Exam: strength 5/5 throughout Psych affect normal Results Lab / Micro Data 07/24/24 16:08 07/24/24 16:08 Labs: Laboratory Results - last 24 hr 07/24/24 16:08: WBC 10.0, RBC 4.74, Hgb 15.0, Hct 46.0, MCV 97.0 H, MCH 31.6, MCHC 32.6, RDW Std Deviation 53.5 H, RDW Coeff of [place]y 14.8 H, Plt Count 204, MPV 12.3 H, Sodium 136, Potassium 3.8, Chloride 104, Carbon Dioxide 22.0, Anion Gap 10, BUN 46 H, Creatinine 2.28 H, Estim Creat Clear Calc 25.38, Est GFR (MDRD) Af Amer 35 L, Est GFR (MDRD) Non-Af 29 L, BUN/Creatinine Ratio 20.2 H, Glucose 101, Calcium 9.5, Troponin I High Sens 142 H*, B-Natriuretic Peptide 729.4 H Imaging Radiology Impression Brain CT 07/24/24 16:07 IMPRESSION: Volume loss with chronic white matter changes. No acute intracranial findings. Electronically Signed: Glenn Redd MD at 17:19 EDT , Chest X-Ray 07/24/24 16:28 IMPRESSION: Right lower lung field consolidation with pleural effusion. Possible small left pleural effusion. Electronically Signed: Glenn Redd MD at 16:49 EDT , Assessment & Plan Assessment/Plan (1) Bibasilar crackles: (2) Edema: QUALIFIERS: Edema type: localized Qualified Code(s): R60.0 - Localized edema (3) Community acquired pneumonia: PLAN: Plan #Community acquired pneumonia * Patient was admitted with a complaint of generalized weakness and fatigue as well as some dizziness. * EKG showed a ventricular paced rhythm. Chest x-ray showed right lower lung field consolidation with pleural effusion and a possible small left pleural effusion * Admit to PCU * Started on IV ceftriaxone and azithromycin. Urine for strep and Legionella antigens. Get sputum cultures. * #SYLVIA on CKD stage III * Creatinine is 2.28 with a baseline of around 1.5-1.6. * Will hold all nephrotoxic medications including oral diuretics. * Will hydrate very very gently with IV fluids at 60 cc/h just for 1 bag. Patient has EF of 20% but his blood pressures dropped to 87/70. Low threshold to discontinue fluids if he feels short of breath. * There is likely a prerenal SYLVIA due to hypotension * #Hypotension: * Blood pressures down to the 80s over 70s. * Will hold all blood pressure medications and metoprolol. * Being hydrated very gently with IV fluids. * This likely the cause of his SYLVIA on CKD stage III * #Heart failure with reduced ejection fraction * Has known EF of 20%. Per cardiology note he has been intolerant to afterload reduction therapy due to hypotension. He tolerated spironolactone though his potassium jumped subsequently. If his weight goes up by 3 pounds daily he takes a dose of Lasix. * He sees cardiology and cardiology has noted discussion for dialysis in the future with patient's did not want this. * Hold diuretics in light of SYLVIA on CKD #History of A-fib: * On metoprolol. * Has had recurrent GI bleeds in the past and has been intolerant of oral anticoagulation. * Has a pacemaker in place. * Is on metoprolol 12.5 mg twice daily. Per cardiology note, he was referred to Dr. Tony Nicholson in [place] for opinion and upgrading his pacemaker to [employer] * Hold metoprolol as patient was not hypotensive. * #History of duodenal ulcers #Hyperlipidemia: On statin #Sick sinus syndrome: Status post pacemaker insertion DVT prophylaxis: Heparin CODE STATUS: DNR CCA no intubation * Patient counseled extensively about different types of CODE STATUS including full code, DNR CCA and DNR CCA. * Patient elects to be DNR CCA no intubation. Patient states he has been told by the rewrite editor that he has this about a year to live and he is made his peace with this. He therefore does not want any CPR or intubation but wants every other treatment otherwise indicated.. * Total [id number] time 17 minutes. Charges/Coding Visit Charges Inpatient E&M: 56295 Init Hosp L3 Procedures Hospitalists Procedures: 87706 Advncd Care Plan 30 Min
[2024-07-24 18:44] LABS: Troponin-I HS 113 pg/mL (3.0-78.0)
[2024-07-24] MEDS: Ceftriaxone 1 GM/50 ML BAG IV (19:45)
[2024-07-24] MEDS: 0.9% Normal Saline (1000mL) 1,000 ML 60 ML IV (19:47)
[2024-07-24] MEDS: Sucralfate 1 GM Tablet PO (21:09)
[2024-07-24] MEDS: Vitamin B Comp W-C Capsule 1 CAP PO (21:09)
[2024-07-24] MEDS: Atorvastatin Calcium 40 MG Tablet PO (21:10)
[2024-07-24] MEDS: Heparin Injection (Vial) 5,000 UNIT/ML VIAL 5000 UNIT SC (21:10)
[2024-07-24 23:32] LABS: Troponin-I HS 117 pg/mL (3.0-78.0)
[2024-07-25] VITALS (7 sets, daily range): BP systolic 109–115; BP diastolic 76–79; PULSE 56–71; RESP 18; TEMP 35.8–36.9; O2SAT 95–100
[2024-07-25] MEDS: Sucralfate 1 GM Tablet PO ×2 (06:04→20:20)
[2024-07-25] MEDS: Heparin Injection (Vial) 5,000 UNIT/ML VIAL 5000 UNIT SC ×3 (06:05→20:20)
[2024-07-25 08:07] LABS: Absolute Lymphocyte Count 1.28 X10^3/uL (0.83-4.51); Absolute Neutrophil Count 5.1 X10^3/uL (2.0-7.7); Basophil# 0.03 X10^3/uL; Basophil% 0.4 % (0-1); Eosinophil# 0.03 X10^3/uL; Eosinophils% 0.4 % (0-5); Hematocrit 42.4 % (40-54); Hemoglobin 13.6 g/dL (13.0-16.5); Lymphocyte # 1.28 X10^3/ul (0.83-4.51); Lymphocyte % 16.8 % (19-41); Mean Corp Hgb Conc 32.1 g/dL (32-36); Mean Corpuscular Hgb 31.2 pg (27.0-32.0); Mean Corpuscular Volume 97.2 fL (80-94); Mean Platelet Vol. 12.1 fl (6.2-12.0); Monocyte# 1.13 X10^3/uL; Monocyte% 14.9 % (0-10); NRBC Flagged by Analyzer 0 % (0-5); Neutrophil # 5.11 X10^3/uL (2.7-7.7); Neutrophil % 67.2 % (47-70); Platelet Count 187 K/mm3 (150-450); RBC Distribution Width CV 14.7 % (11.6-14.6); RBC Distribution Width SD 53.2 fl (35.1-43.9); Red Blood Count 4.36 M/mm3 (4.6-6.2); White Blood Count 7.6 K/mm3 (4.4-11.0)
[2024-07-25 08:29] LABS: Anion Gap 9 (5-15); BUN 50 mg/dL (7-18); BUN/Creat Ratio 23.5 RATIO (10-20); Chloride 107 mmol/L (98-107); Creatinine, Serum 2.13 mg/dL (0.70-1.30); EST Glomerular Filtration Rate 32 mL/min (>60); Est Glom Filt Rate - Afr Amer 38 mL/min (>60); Glucose 90 mg/dL (74-106); Potassium 3.7 mmol/L (3.5-5.1); Sodium Level 135 mmol/L (136-145)
--- NOTE | 2024-07-25 08:31 | PCM.PN.HOSP ---
Reason for Visit Reason for Visit: Generalized weakness/dizziness Subjective Subjective Mr. Montero is a 84-year-old white male who presented to the emergency department at [facility] on 07/25/2024 with a chief complaint of generalized weakness and dizziness. Symptoms have been going on for about a week and a half. He noted that the dizziness he is experiencing is worse with exertion but he has not been taking his diuretic. He notes lower extremity edema that is chronic and does not seem to have worsened and he does complain of chronic shortness of breath but reports that it is worse at this time. Patient also noted that his urine has been darker than usual despite drinking plenty of fluids. He also complained of being very weak and lethargic to the point he was not able to really carry out his activities of daily living. He had no cough or chest pain. He denied palpitations, nausea, or vomiting. He has been weighing himself on a regular basis and not been taking his diuretic as he usually is only to take it when he is 2 pounds up with his daily weights or cardiology recommendations. Vital signs on presentation showed a temperature of 98.1, heart rate 70, blood pressure 106/65, respiratory is 15 oxygen saturations are 95% on room air. CBC was overtly unremarkable. He does have a monocytosis at 14.9%. White count was normal. Chemistry panel showed normal electrolytes however he did appear to be dehydrated with a BUN of 46 and a serum creatinine of 2.28 (baseline serum creatinine appears to run between 1.5 and 1.7 most recently). His initial troponin was 142 and subsequent troponins have trended down. His BNP was 729.4. Strep pneumo and Legionella antigens were negative. Respiratory viral panel was unremarkable. Chest x-ray shows right lower lung field consolidation with pleural effusion and possible small left pleural effusion. Patient is currently on CPAP but able to sit up and communicate. He is complaining of some pleuritic sounding chest pain with lying flat that is much better when he sitting up he states is completely resolved at this time. We discussed his overall cardiac function and goals of care. He did have a hospice/palliative care discussion with Dr. Esqueda at his last appointment in early June and has been thinking about it. He states at this time he would like to pursue consultation with hospice and realizes that his cardiac function is extremely poor. We did discuss that it is probably even less than 20% given his mitral regurgitation. He voiced understanding and his is at the bedside and in agreements with the overall plan of care. I did instruct them that hospice would be in contact with them shortly to set up appointment to discuss ongoing hospice care. Objective Data Objective Data Vital Signs: Vital Signs Temp Pulse Resp BP Pulse Ox O2 Del Method O2 Flow Rate 96.5 F L 70 18 115/76 95 Nasal Cannula 2 07/25/24 03:47 07/25/24 03:47 07/25/24 03:47 07/25/24 03:47 07/25/24 08:23 07/25/24 08:23 07/25/24 08:23 Oxygen Flow Rate (L/min) 2 Oxygen Delivery Method Nasal Cannula Weight: 76.4 kg Body Mass Index (BMI) 23.5 Intake & Output: Intake and Output for Last 24 Hours 07/23/24 07/24/24 07/25/24 23:59 23:59 23:59 Intake Total 305 / 305 Output Total 200 / 200 Balance 105 / 105 Lab / Micro Data 07/25/24 07:57 07/25/24 07:57 Labs: Laboratory Results - last 24 hr 07/24/24 16:08: WBC 10.0, RBC 4.74, Hgb 15.0, Hct 46.0, MCV 97.0 H, MCH 31.6, MCHC 32.6, RDW Std Deviation 53.5 H, RDW Coeff of Laney 14.8 H, Plt Count 204, MPV 12.3 H, Sodium 136, Potassium 3.8, Chloride 104, Carbon Dioxide 22.0, Anion Gap 10, BUN 46 H, Creatinine 2.28 H, Estim Creat Clear Calc 25.38, Est GFR (MDRD) Af Amer 35 L, Est GFR (MDRD) Non-Af 29 L, BUN/Creatinine Ratio 20.2 H, Glucose 101, Calcium 9.5, Troponin I High Sens 142 H*, B-Natriuretic Peptide 729.4 H 07/24/24 18:23: Troponin I High Sens 113 H 07/24/24 22:57: Troponin I High Sens 117 H 07/25/24 07:57: WBC 7.6, RBC 4.36 L, Hgb 13.6, Hct 42.4, MCV 97.2 H, MCH 31.2, MCHC 32.1, RDW Std Deviation 53.2 H, RDW Coeff of Laney 14.7 H, Plt Count 187, MPV 12.1 H, Immature Gran % (Auto) 0.300, Neut % (Auto) 67.2, Lymph % (Auto) 16.8 L, [place] % (Auto) 14.9 H, Eos % (Auto) 0.4, Baso % (Auto) 0.4, Absolute Neuts (auto) 5.1, Absolute Lymphs (auto) 1.28, Nucleated RBC % 0, Sodium 135 L, Potassium 3.7, Chloride 107, Carbon Dioxide 19.0 L, Anion Gap 9, BUN 50 H, Creatinine 2.13 H, Estim Creat Clear Calc 27.50, Est GFR (MDRD) Af Amer 38 L, Est GFR (MDRD) Non-Af 32 L, BUN/Creatinine Ratio 23.5 H, Glucose 90, Calcium 9.0 Micro: Microbiology 07/25/24 00:05 Urine, Clean Catch Legionella Antigen - Final 07/25/24 00:05 Urine, Clean Catch Streptococcus pneumoniae Antigen (M - Final 07/24/24 20:10 Mucosa - Nasopharyngeal Respiratory Panel (PCR) - Final Radiography Diagnostic Testing: Radiology Impression Brain CT 07/24/24 16:07 IMPRESSION: Volume loss with chronic white matter changes. No acute intracranial findings. Electronically Signed: Glenn Redd MD at 17:19 EDT , Chest X-Ray 07/24/24 16:28 IMPRESSION: Right lower lung field consolidation with pleural effusion. Possible small left pleural effusion. Electronically Signed: Glenn Redd MD at 16:49 EDT , Physical Exam Const alert, oriented x3, average body habitus and well nourished; Negative for no apparent distress or healthy appearing Constitutional Narrative: Elderly, very pleasant, white male, sitting up on the edge of the bed currently on CPAP, at bedside, is not in any extremis but does appear to be slightly uncomfortable and working harder to breathe than he should be at rest HEENT head/scalp atraumatic and moist oral mucous membranes HEENT Narrative: Nasal CPAP in place, Mallampati 3, no thrush Head and Scalp: normocephalic Eyes PERRL, EOMs intact bilaterally and conjunctivae normal Eyes Narrative: No scleral icterus Neck no lymphadenopathy and supple Neck Narrative: Neck veins are distended, trachea is midline, no thyroid enlargement Resp No normal respiratory effort, no retractions, no use of accessory muscles and No clear to auscultation bilaterally Resp Narrative: Crackles at mid lung area while sitting up bilaterally and diminished bilateral bases, slight tachypnea but no accessory muscle use at this time, markedly diminished Auscultation: crackles; Negative for rhonchi or wheezes Cardio regular rate, S1 normal heart sound, S2 normal heart sound, no murmurs, no rub, no gallops and no clicks; Negative for regular rhythm Cardio Narrative: Irregularly irregular rhythm with controlled rate GI normal to inspection, nondistended, normoactive bowel sounds, soft to palpation and non-tender Extremity Extremity Narrative: 1-2+ bilateral lower extremity pitting edema, legs are dangling over the bed with extreme rubor but good cap refill and suspect this is related to return flow being decreased with positioning, no cyanosis or clubbing Skin no rashes or lesions noted, no wounds, skin turgor normal, no jaundice, no petechiae and no mottling Neuro oriented x3, moves all extremities and no focal motor deficits Neuro Narrative: Generalized weakness noted no focal deficits Speech: speech normal Psych affect normal Psych Narrative: Eye contact is good and patient is very pleasant Assessment & Plan Assessment/Plan (1) Acute on chronic heart failure with reduced ejection fraction (HFrEF, <= 40%): (2) SYLVIA (acute kidney injury): (3) Generalized weakness: (4) Fatigue: (5) Pleural effusion: PLAN: Plan Acute on chronic heart failure with reduced ejection fraction -Patient with crackles on exam -EF on 06/12/2024 was 20% with severe global hypokinesis of the LV and mild to moderate eccentric mitral valve insufficiency, mild aortic valve insufficiency and severe concentric LVH indicative of diastolic dysfunction -Chest x-ray shows bilateral effusions with some right lower lung consolidation which I suspect is compressive atelectasis -Highly doubt pneumonia as patient has no cough, no white count or left shift, no fever, no chills -Strep pneumo and Legionella antigens are negative/respiratory viral panel is negative/COVID pending -Check CT of the chest to assess the size of pleural effusions -Stop antibiotics -Start Lasix GGT at 10 -Expect the patient will have blood pressures on the lower side of normal given his EF at baseline -Fluid restriction to 1500 cc daily -Sodium restricted diet -Check daily weights -I did review his weight from previous admission and it appears that he is up at least 2 kg at this time -Sodium and bicarbonate are both down today with hydration and serum creatinine has not improved much with worsening BUN so I suspect he is off the Starling curve and renal function may improve with diuretics -Stop IV fluids -D/W Dr. Esqueda--> hospice discussions have been pursued at last office visit in early June and patient was contemplating Bilateral pleural effusion -Right greater than left -Discussed with patient he is amenable to thoracentesis to help with the symptoms. He does have a very large right pleural effusion which I think would be amenable to thoracentesis and probably obtained about 1 to 1-1/2 L and improve his overall breathing status -Thoracentesis ordered for tomorrow on the right-discussed with radiology SYLVIA on CKD stage IIIb -Baseline serum creatinine appears to be running lately between 1.5 and 1.7 -Serum creatinine on presentation was 2.28 -Highly suspect patient is off the Starling curve and this is the etiology of his serum creatinine elevation -Discontinue IV fluids -Start Lasix drip per discussion with Dr. Esqueda -Will hold Aldactone for now -Repeat BMP in a.m. Troponin elevation -Mild and likely related to kidney injury as well as decompensated heart failure -No further need to cycle -Patient just had echocardiogram as noted above no need to repeat at this time Generalized weakness/fatigue -Likely related to decompensated heart failure -PT/OT consultation Persistent atrial flutter/fibrillation/sick sinus syndrome -Patient has permanent pacemaker and is RV paced with chronic LBBB -No anticoagulation due to previous ulcer -Metoprolol is on hold Peptic ulcer disease with recurrent upper GI bleeds -Continue home Carafate -No anticoagulation/aspirin Chronic LV dysfunction -Per review of most recent cardiology visit -Patient does have chronic hypotension related to this -Outpatient plan is for referral to Dr. Tony Mcdermott to get an electrophysiology opinion with regards to [employer] and plans -This has not happened as of yet Hyperlipidemia -Continue home rosuvastatin History of MIKY -Will order CPAP if patient utilizes History of prostate cancer -Remote -No acute issues Depression -Continue home duloxetine DVT prophylaxis -Continue subcu heparin CODE STATUS -DNR CCA with no intubation -Extensive discussion with the patient and his while at the bedside today with regards to his previous conversation had with Dr. Esqueda regarding hospice. The patient states that this time he is ready for hospice and would like a hospice consult while he is hospitalized. The plan is for hospice meeting this evening at 03/24/1930. Charges/Coding Visit Charges Inpatient E&M: 79392 Subs Hosp L3
--- NOTE | 2024-07-25 08:37 | CT_ITS ---
STUDY: CT CHEST WITHOUT CONTRAST REASON FOR EXAM: Male, 84 years old. Effusion RADIATION DOSAGE (If Supplied By Facility): CTDIvol = ( 18.98 ) mGy, DLP = ( 706.53 ) mGycm TECHNIQUE: Transaxial imaging was performed without the administration of intravenous contrast material. Multiplanar coronal and sagittal images were reformatted. Individualized dose optimization techniques were used for this CT. COMPARISON: Comparison is made with prior chest radiograph dated July 24, 2024. FINDINGS: CHEST There are bilateral pleural effusions right greater than left with bibasilar compressive atelectasis at the lung bases. A dual-chamber pacemaker device is seen. Minimal anterior pericardial thickening. Coronary artery calcification. Normal mediastinum. Normal hilar regions. Normal unenhanced pulmonary arteries. Normal aorta arch and descending thoracic aorta. There are multi-level degenerative changes of the thoracic spine. Approximately 50% loss of height of a lower dorsal vertebrae. Small amount of free fluid surrounding the liver and left upper quadrant. Increased markings in the peritoneal fat bilateral perinephric stranding. Left renal cyst. CT/Chest without Contrast IMPRESSION: Moderate degree of bilateral pleural effusions right greater than left with compressive atelectasis. Coronary calcification. Small amount of free fluid in the upper quadrants. Bilateral perinephric stranding. Electronically Signed: Konstantin Gonsales MD at 9:30 EDT ,
[2024-07-25] MEDS: Furosemide 500 MG in Empty Viaflex 50 mL 1 EACH CONT INF (09:15)
[2024-07-25] MEDS: 0.9% Saline Lock 10 ML Syringe IV (09:15)
[2024-07-25] MEDS: Furosemide 40 MG/4 ML Vial IV (09:16)
[2024-07-25] MEDS: DULoxetine Hcl 30 MG Capsule PO ×2 (09:16→20:20)
[2024-07-25] MEDS: Vitamin B Comp W-C Capsule 1 CAP PO ×2 (09:16→16:37)
--- NOTE | 2024-07-25 11:02 | CASEMGMT ---
DARRIN CASH Assessment Face to Face with patient for initial transition planning/care coordination assessment. DARRIN CASH introduced self and role at [facility], pt voices understanding. Pt is A&Ox4 and is resting comfortably in bed and is calm. Pt at bedside. Care providers, pharmacy, and demographics verified. 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 Denies concerns DME: BiPAP with no additional oxygen. Shower chair. Raised TS. Grab bars. FWW, Rollator. HHC/SNF: Hx with [facility] HH. Hx at [facility] TCU and SWCC Pt?s goal: Return to PLOF Plan: TBD. 6-click is 21. PT is pending. Pt states that it is too early to tell what he will need at time of DC. CM and SW to follow. Alona Torres RN, CM
--- NOTE | 2024-07-25 12:25 | CASEMGMT ---
Physician requested a Hospice consult for patient. SW spoke with patient. Introduced self and role at [facility]. Patient confirmed he would like to go back to [place] on Hospice. Patient was okay with [facility]. SW explained how the process works. Patient stated his is aware of the referral being made. SW called patient's . Introduced self and role at [facility]. SW explained how the Hospice referral process works. Patient's stated she is on her way back to the hospital. SW called [facility] and spoke with Patt regarding referral. NOLVIA asked that Hospice contact SW with a meeting time as patient's is at [facility] and the number listed for her is a land line. NOLVIA also updated Romelia that patient has a pacemaker. NOLVIA also faxed information to Hospice. NOLVIA briefly spoke with jigger machine operator Tita and let her know a Hospice referral was being made for patient. Eve Galvan MSW JOSEP
--- NOTE | 2024-07-25 12:58 | CASEMGMT ---
Cata from Hospice called SW and they can have a nurse at [facility] at 5p today. SW checked with patient and his and they are in agreement with 5p today. SW will update RN and physician. Plan: Meet with Hospice today at 5p. Eve CAR
--- NOTE | 2024-07-25 14:16 | CASEMGMT ---
NOLVIA called [facility] and spoke with Tita, the ems driver. NOLVIA let Tita know that patient will be meeting with [facility] today at 5p and will not be returning today. Eve CAR
[2024-07-25] MEDS: Atorvastatin Calcium 40 MG Tablet PO (20:21)
[2024-07-26] VITALS (11 sets, daily range): BP systolic 103–122; BP diastolic 51–78; PULSE 69–71; RESP 16–24; TEMP 36.3–36.8; O2SAT 93–99
[2024-07-26] MEDS: Sucralfate 1 GM Tablet PO (05:54)
[2024-07-26 07:41] LABS: Absolute Lymphocyte Count 1.48 X10^3/uL (0.83-4.51); Absolute Neutrophil Count 4.7 X10^3/uL (2.0-7.7); Basophil# 0.04 X10^3/uL; Basophil% 0.6 % (0-1); Eosinophil# 0.02 X10^3/uL; Eosinophils% 0.3 % (0-5); Hematocrit 39.6 % (40-54); Hemoglobin 12.9 g/dL (13.0-16.5); Lymphocyte # 1.48 X10^3/ul (0.83-4.51); Lymphocyte % 20.5 % (19-41); Mean Corp Hgb Conc 32.6 g/dL (32-36); Mean Corpuscular Hgb 31.2 pg (27.0-32.0); Mean Corpuscular Volume 95.7 fL (80-94); Monocyte# 0.96 X10^3/uL; Monocyte% 13.3 % (0-10); NRBC Flagged by Analyzer 0 % (0-5); Neutrophil # 4.72 X10^3/uL (2.7-7.7); Neutrophil % 65.2 % (47-70); Platelet Count 206 K/mm3 (150-450); RBC Distribution Width CV 14.7 % (11.6-14.6); RBC Distribution Width SD 51.7 fl (35.1-43.9); Red Blood Count 4.14 M/mm3 (4.6-6.2); White Blood Count 7.2 K/mm3 (4.4-11.0)
[2024-07-26 08:14] LABS: International Normalized Ratio 1.4
[2024-07-26 08:16] LABS: Partial Thromboplast Time 38.3 Seconds (24.1-36.2)
--- NOTE | 2024-07-26 08:38 | PCM.OP.PRO ---
Procedure Report Date of Procedure: 07/26/24 Assessment & Plan Assessment/Plan (1) Pleural effusion: PLAN: PROCEDURE: Ultrasound Guided Thoracentesis ORDERING PROVIDER: Dr. Melia Leiva INDICATION: Male, 84 years old. Bilateral pleural effusion, right greater than left. PROVIDER: CHAYA Guzman PROCEDURE: The risks, benefits, and alternatives to the procedure were explained to the patient. The specific risks of bleeding, infection, and pneumothorax requiring chest tube insertion were discussed and accepted. Written informed consent was obtained. The patient was placed in the sitting, upright position. Ultrasonographic evaluation of the bilateral lower pleural spaces was carried out. An adequate pocket was identified in the right lower pleural space. The overlying skin was prepped with chlorhexidine and draped in sterile fashion. 2 % lidocaine was administered subcutaneously for local anesthesia. Under ultrasound guidance, a 5-Georgian thoracentesis needle/catheter system was advanced into the right posterior lower pleural fluid collection. 1830 ml of clear yellow colored fluid was drained. The catheter was removed, and a sterile dressing was applied. The patient tolerated the procedure well. A chest x-ray was ordered. IMPRESSION: Successful ultrasound guided thoracentesis of right pleural effusion. Procedures Radiology Radiology US Procedures: 32598 Thoracentesis
[2024-07-26] MEDS: Lidocaine 2% (20 ml mdv) 20 ML Vial INFILT (09:34)
--- NOTE | 2024-07-26 09:45 | RAD_ITS ---
STUDY: X-RAY CHEST REASON FOR EXAM: Male, 84 years old. Post thora TECHNIQUE: AP and inspiration expiration views. COMPARISON: Comparison is made with prior study dated July 24, 2024. FINDINGS: The patient is status post right thoracentesis. There is a 5% right apical pneumothorax. The patient is asymptomatic. Residual pleural-parenchymal changes are seen at the left lung base. RAD/Chest Insp/Exp 2 View IMPRESSION: Status post right thoracentesis. 5% right apical pneumothorax. The patient is asymptomatic. Electronically Signed: Konstantin Gonsales MD at 10:24 EDT ,
[2024-07-26 10:12] LABS: ALB/GLOB Ratio 0.8 RATIO (0.9-2.4); AST(SGOT) 30 U/L (15-37); Alanine Aminotransfer ALT/SGPT 21 U/L (16-61); Albumin, Serum 2.8 g/dL (3.2-5.0); Alkaline Phosphatase 182 U/L (45-117); Anion Gap 11 (5-15); BUN 47 mg/dL (7-18); BUN/Creat Ratio 21.6 RATIO (10-20); Calcium,Total 9.2 mg/dL (8.5-10.1); Chloride 106 mmol/L (98-107); Creatinine, Serum 2.18 mg/dL (0.70-1.30); EST Glomerular Filtration Rate 31 mL/min (>60); Est Glom Filt Rate - Afr Amer 37 mL/min (>60); Estimated Creatinine Clearance 26.87 ml/min; Globulin 3.7 g/dL (2.2-4.2); Glucose 91 mg/dL (74-106); Potassium 3.3 mmol/L (3.5-5.1); Protein, Total 6.5 g/dL (6.4-8.2); Sodium Level 136 mmol/L (136-145)
--- NOTE | 2024-07-26 10:22 | RAD_ITS ---
STUDY: X-RAY CHEST REASON FOR EXAM: Male, 84 years old. Evaluate right pneumothorax TECHNIQUE: AP inspiration and expiration views. COMPARISON: Comparison is made with prior study done earlier today. FINDINGS: Stable 5% right apical pneumothorax following the right thoracentesis. Mild residual bilateral pleural-parenchymal changes. RAD/Chest 1 View (Portable) IMPRESSION: Stable 5% right apical pneumothorax following the right thoracentesis. Mild residual bilateral pleural-parenchymal changes. Electronically Signed: Konstantin Gonsales MD at 14:11 EDT ,
[2024-07-26] MEDS: DULoxetine Hcl 30 MG Capsule PO (10:34)
[2024-07-26] MEDS: Vitamin B Comp W-C Capsule 1 CAP PO (10:34)
--- NOTE | 2024-07-26 11:16 | CASEMGMT ---
Patient will be discharged back to [place] today on Hospice. NOLVIA called Hospice and notified the call center. They will send someone from Hospice to [facility] to talk with patient to see if he will need any equipment set up at home prior to returning home. NOLVIA called ethanol operator Tita at [place] and left her a voice mail letting her know patient will be discharged back to [place] today with Hospice. NOLVIA will also check with patient to see if he will need transportation or if his will take him back. Eve CAR
--- NOTE | 2024-07-26 12:08 | CASEMGMT ---
NOLVIA spoke with patient and confirmed his will transport him back to [place]. Patient stated he does not feel he will need any equipment at home. Await d/c orders. NOLVIA received a call from Cata with Hospice. Cata was asking NOLVIA when patient was going to go today so they can line up a nurse to be at his home today. NOLVIA let Cata know that NOLVIA is not sure and waiting on d/c instructions. Await d/c instructions. Eve CAR
--- NOTE | 2024-07-26 15:10 | DS.PCM_ITS ---
Providers Date of Admission: 07/24/24 Date of Discharge: 07/26/24 Primary Care Physician: Dr. Joelle Stern MD Reason For Visit: SYLVIA ON CKD, PNEUMONIA Diagnosis Discharge Diagnosis (1) Pleural effusion: Status: Acute Code(s): J90 - Pleural effusion, not elsewhere classified Plan Medications at Discharge Home Medications vitamin B complex 1 cap PO BID vitamin 10/11/21 duloxetine 30 mg capsule,delayed release 30 mg PO BID DEPRESSION 12/15/23 sucralfate 1 gram tablet (Carafate) 1 g PO BID stomach 30 days #60 tabs 12/27/23 docusate sodium 100 mg capsule 100 mg PO BID PRN 06/26/24 furosemide 40 mg tablet 40 mg PO DAILY #30 tabs 07/26/24 Hospital Course Operations None Procedures EKG, Thoracentesis and - (CT chest/chest x-ray) Summary of Care Provided Minutes Spent on Discharge: 41 Hospital Course: Mr. Montero is a 84-year-old white male who presented to the emergency department at [facility] on 07/25/2024 with a chief complaint of generalized weakness and dizziness. Symptoms have been going on for about a week and a half. He noted that the dizziness he is experiencing is worse with exertion but he has not been taking his diuretic. He notes lower extremity edema that is chronic and does not seem to have worsened and he does complain of chronic shortness of breath but reports that it is worse at this time. Patient also noted that his urine has been darker than usual despite drinking plenty of fluids. He also complained of being very weak and lethargic to the point he was not able to really carry out his activities of daily living. He had no cough or chest pain. He denied palpitations, nausea, or vomiting. He has been weighing himself on a regular basis and not been taking his diuretic as he usually is only to take it when he is 2 pounds up with his daily weights or cardiology recommendations. Vital signs on presentation showed a temperature of 98.1, heart rate 70, blood pressure 106/65, respiratory is 15 oxygen saturations are 95% on room air. CBC was overtly unremarkable. He does have a monocytosis at 14.9%. White count was normal. Chemistry panel showed normal electrolytes however he did appear to be dehydrated with a BUN of 46 and a serum creatinine of 2.28 (baseline serum creatinine appears to run between 1.5 and 1.7 most recently). His initial troponin was 142 and subsequent troponins have trended down. His BNP was 729.4. Strep pneumo and Legionella antigens were negative. Respiratory viral panel was unremarkable. Chest x-ray shows right lower lung field consolidation with pleural effusion and possible small left pleural effusion. It was initially thought maybe had a community-acquired pneumonia however upon further review it was revealed that his issues were likely more related to acute on chronic heart failure with reduced ejection fraction. We obtained a CT of his chest to clarify pulmonary architecture and effusions in more detail. CT of the chest showed bilateral pleural effusions right greater than left at least moderate with compressive atelectasis, coronary calcification and small amount of fluid in the upper quadrants with bilateral perinephric stranding. He had no urinary symptoms. He was placed on a Lasix drip, fluid restricted, sodium restricted and cardiac information was reviewed. He did have a hospice/palliative care discussion with Dr. Esqueda at his last appointment in early June and had been thinking about the options and information presented. He stated at this time he would like to pursue consultation with hospice and realized that his cardiac function is extremely poor. We did discuss that it is probably even less than 20% given his mitral regurgitation. Hospice was consulted and discussed hospice with the patient on the evening of 07/25/2024 and he elected to sign hospice papers. In the meantime his CT as noted above showed a large right pleural effusion and at least a moderate left pleural effusion. I ordered a thoracentesis for comfort after discussing this with him and he was taken down on 07/26/2024 for thoracentesis at which time over 1800 cc was removed. He has post procedure x-ray showed less than 5% pneumothorax which I highly suspect may be ex vacuo pneumothorax and may be persistent. Repeat chest x-ray was pursued 4 hours after thoracentesis and was stable. He was able to be discharged in hospice care on 07/26/2024 to home. His owner consulting engineer and primary care physician were notified of the transition of care to hospice. Discharge diagnoses: Acute on chronic heart failure with reduced ejection fraction Bilateral pleural effusion SYLVIA CKD stage IIIb Troponin elevation secondary to decompensated heart failure and kidney injury Generalized weakness Fatigue Persistent atrial flutter/fibrillation History of SSS Peptic ulcer disease with recurrent upper GI bleeds Chronic LV dysfunction Hyperlipidemia History of MIKY History of prostate cancer Depression Physical Exam Const alert, oriented x3, average body habitus and well nourished; Negative for no apparent distress or healthy appearing Constitutional Narrative: Elderly, very pleasant, white male, sitting up in bed watching television, hearing aids in place today so that his hearing is much improved, currently on room air and appears comfortable bilateral okay to General Appearance: cooperative, comfortable, well kempt and well developed Exam Limitations: no limitations HEENT normocephalic, head/scalp atraumatic, moist oral mucous membranes and oropharynx normal HEENT Narrative: Severe hearing loss without hearing aids in place Eyes PERRL, EOMs intact bilaterally and conjunctivae normal Eyes Narrative: No scleral icterus Neck no lymphadenopathy, supple and no JVD Neck Narrative: Neck veins are distended, trachea is midline, no thyroid enlargement Resp normal respiratory effort, no retractions, no use of accessory muscles and No clear to auscultation bilaterally Resp Narrative: Reduce crackles, right lung with much improved aeration since thoracentesis Auscultation: crackles; Negative for rhonchi or wheezes Cardio regular rate, S1 normal heart sound, S2 normal heart sound, no murmurs, no rub, no gallops and no clicks; Negative for regular rhythm Cardio Narrative: Irregularly irregular rhythm with controlled rate GI normal to inspection, nondistended, normoactive bowel sounds, soft to palpation and non-tender Extremity normal to inspection and full ROM Extremity Narrative: 1+ bilateral lower extremity pitting edema, legs are dangling over the bed with extreme rubor but good cap refill and suspect this is related to return flow being decreased with positioning, no cyanosis or clubbing Skin no rashes or lesions noted, no wounds, skin turgor normal, no jaundice, no petechiae and no mottling Neuro oriented x3, CN's II-XII intact bilaterally, moves all extremities and no focal motor deficits Neuro Narrative: Generalized weakness noted no focal deficits Speech: speech normal Psych affect normal Psych Narrative: Eye contact is good and patient is very pleasant Weight / BMI Weight Weight: 76.4 kg Body Mass Index (BMI) 23.5 ABG / Lab / Microbiology Data 07/26/24 07:01 07/26/24 07:01 Laboratory: Laboratory Results - last 24 hr 07/26/24 07:01: WBC 7.2, RBC 4.14 L, Hgb 12.9 L, Hct 39.6 L, MCV 95.7 H, MCH 31.2, MCHC 32.6, RDW Std Deviation 51.7 H, RDW Coeff of Laney 14.7 H, Plt Count 206, MPV 12.0, Immature Gran % (Auto) 0.100, Neut % (Auto) 65.2, Lymph % (Auto) 20.5, Pike % (Auto) 13.3 H, Eos % (Auto) 0.3, Baso % (Auto) 0.6, Absolute Neuts (auto) 4.7, Absolute Lymphs (auto) 1.48, Nucleated RBC % 0, PT 17.0 H, INR 1.4, APTT 38.3 H, Sodium 136, Potassium 3.3 L, Chloride 106, Carbon Dioxide 19.0 L, Anion Gap 11, BUN 47 H, Creatinine 2.18 H, Estim Creat Clear Calc 26.87, Est GFR (MDRD) Af Amer 37 L, Est GFR (MDRD) Non-Af 31 L, BUN/Creatinine Ratio 21.6 H, Glucose 91, Calcium 9.2, Total Bilirubin 1.50 H, AST 30, ALT 21, Alkaline Phosphatase 182 H, Total Protein 6.5, Albumin 2.8 L, Globulin 3.7, A lbumin/Globulin Ratio 0.8 L Microbiology: Microbiology 07/25/24 09:25 Nasal Secretion SARS-CoV-2 Antigen (Rapid) - Final 07/25/24 00:05 Urine, Clean Catch Legionella Antigen - Final 07/25/24 00:05 Urine, Clean Catch Streptococcus pneumoniae Antigen (M - Final 07/24/24 20:10 Mucosa - Nasopharyngeal Respiratory Panel (PCR) - Final Radiography Diagnostic Testing: Radiology Impression Chest X-Ray 07/26/24 09:45 IMPRESSION: Status post right thoracentesis. 5% right apical pneumothorax. The patient is asymptomatic. Electronically Signed: Konstantin Gonsales MD at 10:24 EDT , Chest X-Ray 07/26/24 10:22 IMPRESSION: Stable 5% right apical pneumothorax following the right thoracentesis. Mild residual bilateral pleural-parenchymal changes. Electronically Signed: Konstantin Gonsales MD at 14:11 EDT , D/C Instructions Discharge Diet: 8 Cup Fluid Restriction and 4000 mg Sodium Diet Meaningful Use Info Meaningful Use Meaningful Use Diagnoses (Choose all that apply): CHF CHF DANA/ARB ordered at discharge?: No Reason DANA/ARB not ordered?: Worsening renal disease Documented LVEF (%): 20 Ischemic Stroke Statin Dosing Therapy Reference: STATIN DOSE THERAPY REFERENCE: * Patients > 75 years receive moderate or high dose statin therapy. * Patients 75 years or YOUNGER should receive HIGH intensity statin dose unless contraindicated. You will be required to document reason for non-treatment if statin daily dose does not meet guidelines. HIGH DOSE STATIN THERAPY DAILY Atorvastatin > than or = to 40 mg Rosuvastatin > than or = to 20 mg Amlodipine + Atorvastatin > than or = to 2.5/40 mg Ezetimibe + Simvastatin 10/80 mg Simvastatin 80mg Discharge Plan Admission Admit Date/Time: 07/24/24 18:37 Primary Reason for Your Visit: Shortness of Breath Attending Provider: Melia Leiva Primary Care Provider: Joelle Stern Consulting Providers: Allison Carver Instructions Patient Instructions: JOSÉ MIGUEL RN Thoracentesis Dc Discharge Orders/Prescriptions Prescriptions: Continued docusate sodium 100 mg capsule 100 mg PO BID PRN vitamin B complex Capsule 1 cap PO BID duloxetine 30 mg capsule,delayed release(DR/EC) 30 mg PO BID sucralfate [Carafate] 1 gram tablet 1 g PO BID 30 Days Qty: 60 0RF Changed furosemide 40 mg tablet 40 mg PO DAILY Qty: 30 0RF Discontinued rosuvastatin 20 mg tablet 20 mg PO DAILY metoprolol tartrate 25 mg tablet 12.5 mg PO BID Qty: 30 11RF spironolactone 25 mg tablet 12.5 mg PO DAILY Qty: 45 3RF Referrals / Follow Up: Joelle Stern MD [Primary Care Provider] - See Referral Note (as needed) Disposition Disposition (needs filled in before D/C Order can be placed): Hospice in Home Charges/Coding Visit Charges Inpatient E&M: 80650 Disch Hosp >30min
--- NOTE | 2024-07-26 15:56 | CASEMGMT ---
NOLVIA called Hospice and let them know patient was being discharged and will probably be leaving in about 45 minutes. They will reach out to patient on his cell phone. NOLVIA also called [place] and let them know patient will be headed back in about 45-1 hour. Hospice will be meeting with patient once home. NOLVIA faxed d/c summary to both Hospice and [facility]. Plan: d/c home to [facility]. Patient's will transport back. Eve CAR
== END 2024-07-26 17:00 | disposition hospice, home (50) | DRG 291 ==
LOC: ED 17:07 → PCU 19:14
PROVIDERS: Family Medicine; Admitting Provider Student in an Organized Health Care Education/Training Program; Emergency Provider Emergency Medicine; PCP Internal Medicine; Referring Provider Emergency Medicine; Visit Provider Internal Medicine
DX: I13.0 Hypertensive heart and chronic kidney disease with heart failure and stage 1 through stage 4 chronic kidney disease, or unspecified chronic kidney disease (principal); I50.23 Acute on chronic systolic (congestive) heart failure; I48.19 Other persistent atrial fibrillation; N17.9 Acute kidney failure, unspecified; J90 Pleural effusion, not elsewhere classified; I48.92 Unspecified atrial flutter; I50.32 Chronic diastolic (congestive) heart failure; J95.811 Postprocedural pneumothorax; I49.5 Sick sinus syndrome; N18.32 Chronic kidney disease, stage 3b; F32.A Depression, unspecified; E78.5 Hyperlipidemia, unspecified; G47.33 Obstructive sleep apnea (adult) (pediatric); Z66 Do not resuscitate; Z95.0 Presence of cardiac pacemaker; Z79.899 Other long term (current) drug therapy; Z85.46 Personal history of malignant neoplasm of prostate; Z87.19 Personal history of other diseases of the digestive system
CPT/HCPCS: 32555; 36415; 70450; 71045; 71046; 71250; 80048; 80053; 83880; 84484; 85025; 85027; 85610; 85730; 87426; 87449; 87633; 93005; 94002; 94003; 97802; 99284; J7030; J7050; A4216; J1940

== ENCOUNTER 2024-09-14 13:12 | Inpatient (IN) | payer MEDICARE, SELFPAY ==
[2024-08-20 00:39] VITALS: BMI 32.1
[2024-09-14 13:13] VITALS: BP 98/69; PULSE 78; RESP 18; TEMP 36.6; O2SAT 98; BMI 30.1
[2024-09-14] MEDS: Morphine 4 MG/ML Syringe IV ×2 (13:56→15:01)
[2024-09-14] MEDS: Ondansetron 4 MG/2 ML Vial IV (13:56)
[2024-09-14 14:00] LABS: Absolute Lymphocyte Count 1.41 X10^3/uL (0.83-4.51); Absolute Neutrophil Count 5.7 X10^3/uL (2.0-7.7); Basophil# 0.07 X10^3/uL; Basophil% 0.9 % (0-1); Eosinophil# 0.05 X10^3/uL; Eosinophils% 0.6 % (0-5); Hemoglobin 16.8 g/dL (13.0-16.5); Lymphocyte # 1.41 X10^3/ul (0.83-4.51); Lymphocyte % 17.7 % (19-41); Mean Corp Hgb Conc 32.3 g/dL (32-36); Mean Corpuscular Hgb 31.5 pg (27.0-32.0); Mean Corpuscular Volume 97.6 fL (80-94); Mean Platelet Vol. 11.9 fl (6.2-12.0); Monocyte# 0.71 X10^3/uL; Monocyte% 8.9 % (0-10); NRBC Flagged by Analyzer 0 % (0-5); Neutrophil # 5.72 X10^3/uL (2.7-7.7); Neutrophil % 71.6 % (47-70); Platelet Count 254 K/mm3 (150-450); RBC Distribution Width CV 15.9 % (11.6-14.6); RBC Distribution Width SD 55.8 fl (35.1-43.9); Red Blood Count 5.33 M/mm3 (4.6-6.2)
[2024-09-14 14:09] LABS: International Normalized Ratio 1.2; Prothrombin Time (Protime)PT. 15.1 SECONDS (11.7-14.9)
[2024-09-14 14:28] LABS: ALB/GLOB Ratio 0.6 RATIO (0.9-2.4); AST(SGOT) 66 U/L (15-37); Alanine Aminotransfer ALT/SGPT 42 U/L (16-61); Albumin, Serum 3.1 g/dL (3.2-5.0); Alkaline Phosphatase 371 U/L (45-117); Anion Gap 7 (5-15); BUN 37 mg/dL (7-18); BUN/Creat Ratio 20.2 RATIO (10-20); Chloride 112 mmol/L (98-107); Creatinine, Serum 1.83 mg/dL (0.70-1.30); EST Glomerular Filtration Rate 38 mL/min (>60); Est Glom Filt Rate - Afr Amer 46 mL/min (>60); Estimated Creatinine Clearance 25.65 ml/min; Globulin 4.9 g/dL (2.2-4.2); Glucose 133 mg/dL (74-106); Potassium 4.5 mmol/L (3.5-5.1); Sodium Level 143 mmol/L (136-145)
[2024-09-14 14:37] VITALS: BP 119/71; PULSE 87; RESP 18; TEMP 36.8; O2SAT 97
[2024-09-14 16:47] VITALS: BMI 24.3
[2024-09-14 17:10] VITALS: PULSE 80
[2024-09-14 17:23] VITALS: BP 104/73; PULSE 70; RESP 16; TEMP 36.8; O2SAT 95
[2024-09-14 20:05] VITALS: BP 99/65; PULSE 72; RESP 16; TEMP 36.4; O2SAT 95
[2024-09-14] MEDS: Senna/Docusate Sodium 1 Tablet 2 TABLET PO (21:22)
[2024-09-14] MEDS: Sucralfate 1 GM Tablet PO (21:22)
[2024-09-14] MEDS: DULoxetine Hcl 30 MG Capsule PO (21:22)
[2024-09-14] MEDS: Acetaminophen 500 MG Tablet 1000 MG PO (21:22)
[2024-09-14] MEDS: LORazepam 0.5 MG Tablet PO (22:28)
[2024-09-15] VITALS (17 sets, daily range): BP systolic 84–111; BP diastolic 55–76; PULSE 70–86; RESP 16–18; TEMP 36.2–37.6; O2SAT 81–100; BMI 21.8
[2024-09-15 07:46] LABS: Absolute Lymphocyte Count 1.33 X10^3/uL (0.83-4.51); Absolute Neutrophil Count 4.8 X10^3/uL (2.0-7.7); Basophil# 0.05 X10^3/uL; Basophil% 0.7 % (0-1); Eosinophil# 0.04 X10^3/uL; Eosinophils% 0.6 % (0-5); Hemoglobin 16.7 g/dL (13.0-16.5); Lymphocyte # 1.33 X10^3/ul (0.83-4.51); Lymphocyte % 19.2 % (19-41); Mean Corp Hgb Conc 32.1 g/dL (32-36); Mean Corpuscular Hgb 31.5 pg (27.0-32.0); Mean Corpuscular Volume 97.9 fL (80-94); Mean Platelet Vol. 12.4 fl (6.2-12.0); Monocyte# 0.71 X10^3/uL; Monocyte% 10.3 % (0-10); NRBC Flagged by Analyzer 0 % (0-5); Neutrophil # 4.76 X10^3/uL (2.7-7.7); Neutrophil % 68.8 % (47-70); Platelet Count 229 K/mm3 (150-450); RBC Distribution Width CV 15.7 % (11.6-14.6); RBC Distribution Width SD 55.8 fl (35.1-43.9); Red Blood Count 5.31 M/mm3 (4.6-6.2); White Blood Count 6.9 K/mm3 (4.4-11.0)
[2024-09-15] MEDS: Lactated Ringers 1,000 ML 15 ML IV (08:15)
[2024-09-15] MEDS: Cefazolin 2 GM in Syringe IV (08:19)
[2024-09-15 08:28] LABS: International Normalized Ratio 1.2; Prothrombin Time (Protime)PT. 15.3 SECONDS (11.7-14.9)
[2024-09-15] MEDS: Bupivacaine Mpf 0.5% 30 ML VIAL (09:11)
[2024-09-15 10:50] LABS: ALB/GLOB Ratio 0.7 RATIO (0.9-2.4); AST(SGOT) 50 U/L (15-37); Alanine Aminotransfer ALT/SGPT 42 U/L (16-61); Albumin, Serum 3.2 g/dL (3.2-5.0); Alkaline Phosphatase 364 U/L (45-117); Anion Gap 8 (5-15); BUN 43 mg/dL (7-18); BUN/Creat Ratio 19.5 RATIO (10-20); Calcium,Total 9.1 mg/dL (8.5-10.1); Chloride 110 mmol/L (98-107); Creatinine, Serum 2.21 mg/dL (0.70-1.30); EST Glomerular Filtration Rate 30 mL/min (>60); Est Glom Filt Rate - Afr Amer 37 mL/min (>60); Estimated Creatinine Clearance 24.95 ml/min; Globulin 4.4 g/dL (2.2-4.2); Glucose 110 mg/dL (74-106); Magnesium 2.2 mg/dL (1.6-2.6); Potassium 4.4 mmol/L (3.5-5.1); Protein, Total 7.6 g/dL (6.4-8.2); Sodium Level 143 mmol/L (136-145)
[2024-09-15] MEDS: Acetaminophen 500 MG Tablet 1000 MG PO ×2 (14:26→22:41)
[2024-09-15] MEDS: Cefazolin 1 GM/50 ML BAG IV ×2 (14:27→22:40)
[2024-09-15] MEDS: Ondansetron 4 MG/2 ML Vial IV (15:29)
[2024-09-15] MEDS: Calcium Carbonate 500 MG Tablet PO (17:03)
[2024-09-15] MEDS: Sucralfate 1 GM Tablet PO (22:40)
[2024-09-15] MEDS: DULoxetine Hcl 30 MG Capsule PO (22:41)
[2024-09-15] MEDS: Senna/Docusate Sodium 1 Tablet 2 TABLET PO (22:41)
[2024-09-16] VITALS (9 sets, daily range): BP systolic 76–100; BP diastolic 55–79; PULSE 69–70; RESP 18; TEMP 36.6–37.2; O2SAT 91–97; BMI 23.8
[2024-09-16] MEDS: 0.9% Normal Saline (1000mL) 1,000 ML 999 ML IV ×2 (00:51→02:29)
[2024-09-16 05:13] LABS: Anion Gap 6 (5-15); BUN 46 mg/dL (7-18); Calcium,Total 8.2 mg/dL (8.5-10.1); Chloride 109 mmol/L (98-107); Creatinine, Serum 2.55 mg/dL (0.70-1.30); EST Glomerular Filtration Rate 26 mL/min (>60); Est Glom Filt Rate - Afr Amer 31 mL/min (>60); Estimated Creatinine Clearance 22.97 ml/min; Glucose 106 mg/dL (74-106); Potassium 4.9 mmol/L (3.5-5.1); Sodium Level 138 mmol/L (136-145)
[2024-09-16] MEDS: Enoxaparin 30 MG/0.3 ML Syringe SC (05:39)
[2024-09-16] MEDS: Acetaminophen 500 MG Tablet 1000 MG PO ×3 (05:40→22:25)
[2024-09-16] MEDS: Cefazolin 1 GM/50 ML BAG IV (05:40)
[2024-09-16] MEDS: 0.9% Saline Lock 10 ML Syringe IV (05:41)
[2024-09-16] MEDS: Calcium Carbonate 500 MG Tablet PO ×3 (07:52→17:42)
[2024-09-16] MEDS: Senna/Docusate Sodium 1 Tablet 2 TABLET PO ×2 (07:52→22:25)
[2024-09-16] MEDS: Sucralfate 1 GM Tablet PO ×2 (07:52→22:25)
[2024-09-16] MEDS: DULoxetine Hcl 30 MG Capsule PO ×2 (07:52→22:25)
[2024-09-16] MEDS: Pantoprazole Sodium 40 MG Tablet PO (07:52)
[2024-09-16] MEDS: Mirtazapine 30 MG Tablet PO (07:52)
[2024-09-16 08:56] LABS: Vitamin D,25 Hydroxy 33.6 ng/mL
[2024-09-16] MEDS: Ondansetron 4 MG/2 ML Vial IV (11:38)
[2024-09-16] MEDS: 0.9% Normal Saline (1000mL) 1,000 ML 100 ML IV (15:31)
[2024-09-17] MEDS: Ondansetron 4 MG/2 ML Vial IV (01:31)
[2024-09-17] MEDS: 0.9% Normal Saline (1000mL) 1,000 ML 100 ML IV (01:31)
[2024-09-17 01:36] VITALS: BP 98/58; PULSE 70; RESP 18; TEMP 36.6; O2SAT 97
[2024-09-17 04:37] VITALS: BMI 25.0
[2024-09-17] MEDS: Enoxaparin 30 MG/0.3 ML Syringe SC (05:29)
[2024-09-17 05:44] VITALS: BP 100/62; PULSE 70; RESP 18; TEMP 36.5; O2SAT 100
[2024-09-17 07:34] LABS: Absolute Lymphocyte Count 1.01 X10^3/uL (0.83-4.51); Absolute Neutrophil Count 6.1 X10^3/uL (2.0-7.7); Basophil# 0.04 X10^3/uL; Basophil% 0.5 % (0-1); Eosinophil# 0.03 X10^3/uL; Eosinophils% 0.4 % (0-5); Hematocrit 38.8 % (40-54); Hemoglobin 12.4 g/dL (13.0-16.5); Lymphocyte # 1.01 X10^3/ul (0.83-4.51); Lymphocyte % 12.2 % (19-41); Mean Corpuscular Hgb 30.9 pg (27.0-32.0); Mean Corpuscular Volume 96.8 fL (80-94); Mean Platelet Vol. 12.6 fl (6.2-12.0); Monocyte# 1.03 X10^3/uL; Monocyte% 12.5 % (0-10); NRBC Flagged by Analyzer 0 % (0-5); Neutrophil # 6.12 X10^3/uL (2.7-7.7); Neutrophil % 73.9 % (47-70); Platelet Count 145 K/mm3 (150-450); RBC Distribution Width CV 15.7 % (11.6-14.6); RBC Distribution Width SD 54.7 fl (35.1-43.9); Red Blood Count 4.01 M/mm3 (4.6-6.2); White Blood Count 8.3 K/mm3 (4.4-11.0)
[2024-09-17 07:52] LABS: Anion Gap 10 (5-15); BUN 55 mg/dL (7-18); BUN/Creat Ratio 21.2 RATIO (10-20); Calcium,Total 8.1 mg/dL (8.5-10.1); Chloride 110 mmol/L (98-107); EST Glomerular Filtration Rate 25 mL/min (>60); Est Glom Filt Rate - Afr Amer 30 mL/min (>60); Estimated Creatinine Clearance 22.53 ml/min; Glucose 111 mg/dL (74-106); Potassium 4.3 mmol/L (3.5-5.1); Sodium Level 142 mmol/L (136-145)
[2024-09-17 08:00] VITALS: BP 96/62; PULSE 70; RESP 16; TEMP 36.4; O2SAT 95
[2024-09-17 08:11] VITALS: O2SAT 99
[2024-09-17] MEDS: Calcium Carbonate 500 MG Tablet PO ×3 (08:14→17:02)
[2024-09-17] MEDS: DULoxetine Hcl 30 MG Capsule PO ×2 (09:56→22:07)
[2024-09-17] MEDS: Pantoprazole Sodium 40 MG Tablet PO (09:56)
[2024-09-17] MEDS: Senna/Docusate Sodium 1 Tablet 2 TABLET PO ×2 (09:57→22:07)
[2024-09-17] MEDS: Mirtazapine 15 MG Tablet PO (09:59)
[2024-09-17 13:38] VITALS: BP 99/55; PULSE 72; RESP 18; TEMP 36.5; O2SAT 97
[2024-09-17] MEDS: Acetaminophen 500 MG Tablet 1000 MG PO (13:49)
[2024-09-17 21:54] VITALS: BP 104/65; PULSE 70; RESP 18; TEMP 36.5; O2SAT 97
[2024-09-18 04:23] VITALS: BP 102/62; PULSE 72; RESP 18; TEMP 36.5; O2SAT 97
[2024-09-18 04:54] VITALS: BMI 23.3
[2024-09-18 05:43] LABS: Absolute Lymphocyte Count 1.06 X10^3/uL (0.83-4.51); Absolute Neutrophil Count 4.7 X10^3/uL (2.0-7.7); Basophil# 0.03 X10^3/uL; Basophil% 0.5 % (0-1); Eosinophil# 0.06 X10^3/uL; Eosinophils% 0.9 % (0-5); Hematocrit 37.6 % (40-54); Hemoglobin 12.6 g/dL (13.0-16.5); Lymphocyte # 1.06 X10^3/ul (0.83-4.51); Lymphocyte % 16.3 % (19-41); Mean Corp Hgb Conc 33.5 g/dL (32-36); Mean Corpuscular Hgb 31.5 pg (27.0-32.0); Mean Platelet Vol. 13.5 fl (6.2-12.0); Monocyte# 0.62 X10^3/uL; Monocyte% 9.5 % (0-10); NRBC Flagged by Analyzer 0 % (0-5); Neutrophil % 72.2 % (47-70); POSITIVE MORPHOLOGY YES; Platelet Count 175 K/mm3 (150-450); RBC Distribution Width CV 15.7 % (11.6-14.6); RBC Distribution Width SD 53.4 fl (35.1-43.9); White Blood Count 6.5 K/mm3 (4.4-11.0)
[2024-09-18 06:07] LABS: Anion Gap 8 (5-15); BUN 63 mg/dL (7-18); BUN/Creat Ratio 23.2 RATIO (10-20); Calcium,Total 8.7 mg/dL (8.5-10.1); Chloride 108 mmol/L (98-107); Creatinine, Serum 2.71 mg/dL (0.70-1.30); EST Glomerular Filtration Rate 24 mL/min (>60); Est Glom Filt Rate - Afr Amer 29 mL/min (>60); Estimated Creatinine Clearance 21.61 ml/min; Glucose 96 mg/dL (74-106); Potassium 4.2 mmol/L (3.5-5.1); Sodium Level 138 mmol/L (136-145)
[2024-09-18 07:31] LABS: Differential Indicated SCAN CRITERIA MET
[2024-09-18 08:09] VITALS: BP 112/60; PULSE 68; RESP 18; TEMP 36.3; O2SAT 99
[2024-09-18 08:09] LABS: Differential Comment SCANNED
[2024-09-18] MEDS: oxyCODONE 5 MG Tablet PO (08:16)
[2024-09-18] MEDS: DULoxetine Hcl 30 MG Capsule PO ×2 (08:16→22:57)
[2024-09-18] MEDS: Enoxaparin 30 MG/0.3 ML Syringe SC (08:16)
[2024-09-18] MEDS: Senna/Docusate Sodium 1 Tablet 2 TABLET PO ×2 (08:17→22:57)
[2024-09-18] MEDS: Bisacodyl 10 MG Suppository RC (08:17)
[2024-09-18] MEDS: Mirtazapine 15 MG Tablet PO (08:19)
[2024-09-18] MEDS: Pantoprazole Sodium 40 MG Tablet PO (08:19)
[2024-09-18] MEDS: Polyethylene Glycol 3350 17 GM PACKET PO (10:51)
[2024-09-18] MEDS: Fleet Enema 133 ML RC (11:41)
[2024-09-18 14:01] VITALS: BP 97/58; PULSE 69; RESP 16; TEMP 36.3; O2SAT 97
[2024-09-18] MEDS: Acetaminophen 500 MG Tablet 1000 MG PO ×2 (14:07→22:57)
[2024-09-18] MEDS: LORazepam 0.5 MG Tablet PO ×2 (14:10→23:19)
[2024-09-18 22:52] VITALS: BP 96/65; PULSE 70; RESP 16; TEMP 36.3; O2SAT 100
[2024-09-18] MEDS: Sucralfate 1 GM Tablet PO (22:57)
[2024-09-18] MEDS: 0.9% Saline Lock 10 ML Syringe IV (23:19)
[2024-09-18 23:21] VITALS: O2SAT 99
[2024-09-19] VITALS (7 sets, daily range): BP systolic 98–106; BP diastolic 56–61; PULSE 65–71; RESP 16–18; TEMP 36.4–36.7; O2SAT 88–100; BMI 24.0
[2024-09-19] MEDS: Acetaminophen 500 MG Tablet 1000 MG PO ×3 (04:46→21:24)
[2024-09-19] MEDS: Enoxaparin 30 MG/0.3 ML Syringe SC (04:46)
[2024-09-19] MEDS: Senna/Docusate Sodium 1 Tablet 2 TABLET PO (08:28)
[2024-09-19] MEDS: Mirtazapine 15 MG Tablet PO (08:28)
[2024-09-19] MEDS: Pantoprazole Sodium 40 MG Tablet PO (08:28)
[2024-09-19] MEDS: Polyethylene Glycol 3350 17 GM PACKET PO (08:28)
[2024-09-19] MEDS: DULoxetine Hcl 30 MG Capsule PO ×2 (08:28→21:24)
[2024-09-19] MEDS: Menthol/Lanolin/Calamine/Znox 113 GM Tube 1 APPLIC TOPICAL (11:24)
[2024-09-19] MEDS: oxyCODONE 5 MG Tablet PO ×2 (14:02→22:52)
[2024-09-19] MEDS: LORazepam 0.5 MG Tablet PO ×2 (14:02→21:31)
[2024-09-19] MEDS: Sucralfate 1 GM Tablet PO (21:24)
[2024-09-19] MEDS: MELATONIN 3 MG TABLET PO (21:31)
[2024-09-20] MEDS: Acetaminophen 500 MG Tablet 1000 MG PO (05:50)
[2024-09-20] MEDS: Sucralfate 1 GM Tablet PO (05:50)
[2024-09-20] MEDS: Enoxaparin 30 MG/0.3 ML Syringe SC (05:52)
[2024-09-20 05:53] VITALS: BP 98/56; PULSE 69; RESP 18; TEMP 36.3; O2SAT 98
[2024-09-20 06:00] VITALS: BMI 24.1
[2024-09-20 06:16] VITALS: O2SAT 98
[2024-09-20 06:50] VITALS: PULSE 76; RESP 16; O2SAT 98
[2024-09-20] MEDS: Albuterol 2.5 MG/3 ML VIAL.NEB. INHALATION (06:50)
[2024-09-20 10:00] VITALS: BP 92/64; PULSE 71; RESP 18; TEMP 36.4; O2SAT 93
[2024-09-20] MEDS: Calcium Carbonate 500 MG Tablet PO (10:49)
[2024-09-20] MEDS: Pantoprazole Sodium 40 MG Tablet PO (10:49)
[2024-09-20] MEDS: DULoxetine Hcl 30 MG Capsule PO (10:50)
[2024-09-20] MEDS: Mirtazapine 15 MG Tablet PO (10:50)
[2024-09-20 13:17] VITALS: BP 100/67; PULSE 70; RESP 18; TEMP 36.6; O2SAT 95
== END 2024-09-20 15:37 | disposition skilled nursing facility (03) | DRG 521 ==
LOC: ED 14:40 → MS3 14:52
PROVIDERS: Internal Medicine; Nurse Practitioner; Student in an Organized Health Care Education/Training Program; Admitting Provider Internal Medicine; Emergency Provider Emergency Medicine; PCP Internal Medicine; Visit Provider Internal Medicine
PROC: 0SRS01A Replacement of Left Hip Joint, Femoral Surface with Metal Synthetic Substitute, Uncemented, Open Approach (ICD-10-PCS; CPT 27125; principal; 2024-09-15 08:00)
DX: S72.002A Fracture of unspecified part of neck of left femur, initial encounter for closed fracture (principal); G93.41 Metabolic encephalopathy; I13.0 Hypertensive heart and chronic kidney disease with heart failure and stage 1 through stage 4 chronic kidney disease, or unspecified chronic kidney disease; I42.8 Other cardiomyopathies; I50.22 Chronic systolic (congestive) heart failure; N17.9 Acute kidney failure, unspecified; Z66 Do not resuscitate; N18.32 Chronic kidney disease, stage 3b; I34.0 Nonrheumatic mitral (valve) insufficiency; F32.A Depression, unspecified; I48.0 Paroxysmal atrial fibrillation; E78.5 Hyperlipidemia, unspecified; F41.9 Anxiety disorder, unspecified; K21.9 Gastro-esophageal reflux disease without esophagitis; W19.XXXA Unspecified fall, initial encounter; Z95.0 Presence of cardiac pacemaker
CPT/HCPCS: 36415; 71045; 73502; 80048; 80053; 82306; 83735; 85025; 85610; 86850; 86900; 86901; 88305; 88311; 93005; 94640; 94668; 94762; 97162; 97166; 97530; 97535; 99285; C1776; J7030; J7120; A4216; J2405

== ENCOUNTER 2024-09-25 11:35 | Emergency (ER) | payer MEDICARE, SELFPAY ==
[2024-08-20 00:39] VITALS: BMI 32.1
[2024-09-25] VITALS (23 sets, daily range): BP systolic 32–92; BP diastolic 17–67; PULSE 70–94; RESP 8–21; TEMP 35.7–36.6; O2SAT 69–98; BMI 20.4
[2024-09-25] MEDS: 0.9% Normal Saline (1000mL) 1,000 ML 999 ML IV (12:00)
[2024-09-25] MEDS: fentaNYL 100 MCG/2 ML Ampul 25 MCG IV ×2 (13:04→16:02)
[2024-09-25 14:09] LABS: Mucous, Urine 0 SEEN /hpf (<or=2+); Squamous Epithelial Cells - UA 0 SEEN /hpf (0-5)
[2024-09-25 14:11] LABS: Color, Urine Yellow (Yellow); Glucose, Dipstick Normal (Normal); Ketone-Dipstick 5 mg/dl (Negative); Leukocyte Esterase-Dipstick 25 /ul (Negative); Nitrite-Dipstick Positive (Negative); Occult Blood-Urine 250 /ul (Negative); Protein-Dipstick 30 mg/dl (Negative); Specific Gravity, Urine 1.015 (1.002-1.030); Urine Clarity Clear (Clear); Urine Urobilinogen 4 mg/dl (Normal)
[2024-09-25 14:13] LABS: Urine Bilirubin Dipstick 3 mg/dL (Negative)
[2024-09-25 14:17] LABS: Bacteria 1+ /hpf (None Seen); Red Blood Cells-Urine 5-10 SEEN /hpf (0-5); White Blood Cells 0-5 SEEN /hpf (0-5)
[2024-09-25 15:00] LABS: Absolute Lymphocyte Count 1.05 X10^3/uL (0.83-4.51); Absolute Neutrophil Count 14.5 X10^3/uL (2.0-7.7); Basophil# 0.04 X10^3/uL; Basophil% 0.2 % (0-1); Eosinophil# 0.02 X10^3/uL; Eosinophils% 0.1 % (0-5); Hematocrit 36.7 % (40-54); Hemoglobin 11.9 g/dL (13.0-16.5); Lymphocyte # 1.05 X10^3/ul (0.83-4.51); Lymphocyte % 6.3 % (19-41); Mean Corp Hgb Conc 32.4 g/dL (32-36); Mean Corpuscular Hgb 31.6 pg (27.0-32.0); Mean Corpuscular Volume 97.6 fL (80-94); Mean Platelet Vol. 11.9 fl (6.2-12.0); Monocyte# 0.87 X10^3/uL; Monocyte% 5.2 % (0-10); NRBC Flagged by Analyzer 0.1 % (0-5); Neutrophil # 14.47 X10^3/uL (2.7-7.7); Neutrophil % 87.2 % (47-70); POSITIVE COUNT YES; Platelet Count 230 K/mm3 (150-450); RBC Distribution Width CV 18.6 % (11.6-14.6); RBC Distribution Width SD 58.1 fl (35.1-43.9); Red Blood Count 3.76 M/mm3 (4.6-6.2); White Blood Count 16.6 K/mm3 (4.4-11.0)
[2024-09-25 15:05] LABS: International Normalized Ratio 1.6; Prothrombin Time (Protime)PT. 18.7 SECONDS (11.7-14.9)
[2024-09-25] MEDS: Norepinephrine 8 MG in 0.9% Normal Saline (250mL Bag) 242 ML 9.4 MG CONT INF (15:13)
[2024-09-25] MEDS: Ceftriaxone 1 GM/50 ML BAG IV (15:16)
[2024-09-25 15:27] LABS: ALB/GLOB Ratio 0.6 RATIO (0.9-2.4); AST(SGOT) 36 U/L (15-37); Alanine Aminotransfer ALT/SGPT 10 U/L (16-61); Albumin, Serum 2.1 g/dL (3.2-5.0); Alkaline Phosphatase 179 U/L (45-117); Anion Gap 8 (5-15); BUN 99 mg/dL (7-18); BUN/Creat Ratio 32.7 RATIO (10-20); Calcium,Total 8.4 mg/dL (8.5-10.1); Chloride 117 mmol/L (98-107); Creatinine, Serum 3.03 mg/dL (0.70-1.30); EST Glomerular Filtration Rate 21 mL/min (>60); Est Glom Filt Rate - Afr Amer 25 mL/min (>60); Estimated Creatinine Clearance 17.04 ml/min; Globulin 3.5 g/dL (2.2-4.2); Glucose 89 mg/dL (74-106); Potassium 4.3 mmol/L (3.5-5.1); Protein, Total 5.6 g/dL (6.4-8.2); Sodium Level 146 mmol/L (136-145); Troponin-I HS 256 pg/mL (3.0-78.0)
[2024-09-25 15:46] LABS: Partial Thromboplast Time 27.4 Seconds (24.1-36.2)
[2024-09-25] MEDS: Midazolam 2 MG/2 ML Syringe IV (16:03)
[2024-09-25] MEDS: Flumazenil 0.5 MG/5 ML Vial 0.2 MG IV (16:23)
[2024-09-25 18:52] LABS: Reflex Lactate? Y
[2024-09-25] MEDS: LORazepam 2 MG/ML Syringe 1 MG IV (19:55)
[2024-09-25] MEDS: Morphine 4 MG/ML Syringe IV (19:57)
== END 2024-09-25 22:36 ==
PROVIDERS: Emergency Provider Emergency Medicine; PCP Internal Medicine; Visit Provider Emergency Medicine
DX: A41.9 Sepsis, unspecified organism (principal); R65.21 Severe sepsis with septic shock; I13.0 Hypertensive heart and chronic kidney disease with heart failure and stage 1 through stage 4 chronic kidney disease, or unspecified chronic kidney disease; I50.23 Acute on chronic systolic (congestive) heart failure; I48.0 Paroxysmal atrial fibrillation; N18.30 Chronic kidney disease, stage 3 unspecified; T84.021A Dislocation of internal left hip prosthesis, initial encounter; X58.XXXA Exposure to other specified factors, initial encounter; N39.0 Urinary tract infection, site not specified; I95.9 Hypotension, unspecified; E78.5 Hyperlipidemia, unspecified; Z66 Do not resuscitate; Z79.01 Long term (current) use of anticoagulants; Z79.899 Other long term (current) drug therapy
CPT/HCPCS: 27250; 36556; 71045; 73501; 73502; 80053; 81001; 83605; 84484; 85025; 85610; 85730; 87040; 87077; 87086; 87186; 93005; 96365; 96366; 96368; 96375; 99152; 99285; J7030; J7040; J7050; A4216